=== PATIENT | female | born 1995 | race Caucasian/White ===

== ENCOUNTER 2024-05-11 12:22 | Emergency (ER) | payer OTHER, SELFPAY ==
[2024-05-11] VITALS (11 sets, daily range): BP systolic 118–138; BP diastolic 68–82; PULSE 59–79; TEMP 36.7; O2SAT 75–100; BMI 20.4
--- NOTE | 2024-05-11 13:14 | ECG_ITS ---
[facility] Test Date: 2024-05-11 Pat Name: SARI MOULTON Department: Room: - Gender: Female Certified Meeting Professional: : 1995 Requested By: Order Number: [id number] Reading MD: MARY SPIVEY Measurements Intervals [place] Rate: 57 P: 90 CO: 138 QRS: 91 QRSD: 84 T: 69 QT: 414 QTc: 409 Interpretive Statements 1100 Sinus rhythm 1470 with occasional supraventricular premature complexes 7102 Moderate right axis deviation 9140 abnormal rhythm ECG No previous ECG available for comparison Electronically Signed On 05-11-2024 22:48:13 EDT by MARY SPIVEY
[2024-05-11 13:22] LABS: Basophils Absolute Auto 0.1 10^3/uL (0.0-0.1); Basophils Percent Auto 0.9 % (0.2-2.0); Eosinophils Absolute Auto 0.1 10^3/uL (0.0-0.7); Eosinophils Percent Auto 1.8 % (0.9-7.0); Hematocrit 37.7 % (36.0-48.0); Hemoglobin 13.5 g/dL (12.0-16.0); Immature Granulocytes Abs Auto 0.02 10^3/uL (0.00-0.03); Immature Granulocytes Pct Auto 0.3 % (0.0-0.5); Lymphocytes Absolute Auto 2.2 10^3/uL (1.2-3.8); Lymphocytes Percent Auto 28.3 % (20.5-60.0); Mean Corpuscular HGB Conc 35.8 g/dL (29.9-35.2); Mean Corpuscular Hemoglobin 33.7 pg (26.7-34.0); Mean Platelet Volume 9.8 fL (9.5-13.5); Monocytes Absolute Auto 0.5 10^3/uL (0.3-0.8); Monocytes Percent Auto 5.8 % (1.7-12.0); Neutrophils Absolute Auto 4.9 10^3/uL (1.4-6.5); Neutrophils Percent Auto 62.9 % (43.0-75.0); Platelet Count 272 10^3/uL (150-450); Red Blood Count 4.01 10^6/uL (4.20-5.40); Red Cell Distribution Width 11.8 % (11.0-15.0); White Blood Count 7.7 10^3/uL (4.0-11.0)
--- NOTE | 2024-05-11 13:36 | ED_ITS ---
HPI HPI - General Adult General Chief complaint: Chest Pain Stated complaint: CHEST PAIN/GENERAL WEAKNESS Time Seen by Provider: 05/11/24 12:47 Source: patient Mode of arrival: walk-in Limitations: no limitations History of Present Illness HPI narrative: Patient presents to ED complaining of chest pain and not feeling well. She was recently seen in the ER and diagnosed with GERD and chest pain. She stopped smoking and stopped marijuana since then she has been feeling jittery and having anxiety and panic attacks. She says she has been having some chest pain and pain in her back. She is tearful and anxious here on exam. No suicidal or homicidal ideation. She states that she wants to stay off the nicotine and relapse on that but she is having a hard time. It has been 3 days since she has had any nicotine and she is having a lot of withdrawal symptoms from that. She says she wakes up sweaty at night.She is alert and oriented at this time Related Data Home Medications ?Medication ?Instructions ?Recorded ?Confirmed hydroxyzine HCl 25 mg tablet 25 mg PO BID 05/11/24 05/11/24 omeprazole 10 mg capsule,delayed 10 mg PO BID 05/11/24 05/11/24 release sucralfate .ROUTE 05/11/24 Previous Rx's ?Medication ?Instructions ?Recorded nicotine See Rx Instructions transdermal 05/11/24 21mg/24hr-14mg/24hr-7mg/24hr daily .COMPLEX #56 patches transderm patches,sequentl Allergies Allergy/AdvReac Type Severity Reaction Status Date / Time No Known Drug Allergies Allergy Verified 05/11/24 12:33 Opioid HPI Opioid Management Most Recent Opioid Data: No Data to Display Review of Systems ROS Status of ROS 10 or more systems reviewed and unremark able except as noted in history and below PFSH PFSH Social History Little interest or pleasure in doing things: not at all Feeling down, depressed, or hopeless: not at all Exam Narrative Exam Narrative: General: alert, no acute distress Cardiovascular: regular rate and rhythm, normal peripheral perfusion. Respiratory: Lungs CTA, respirations non labored. Extremities: no deformity, no trauma. Neurological: oriented x 4, LOC appropriate for age. Abdomen soft nontender nondistended Patient is anxious, mildly tearful Constitutional Vital Signs, click to edit/add: Last Vital Signs Temp 98.1 F 05/11/24 12:33 Pulse 61 05/11/24 13:40 Resp 19 05/11/24 13:40 BP 118/68 05/11/24 13:14 Pulse Ox 99 05/11/24 12:51 O2 Del Method Room Air 05/11/24 12:33 Course Vital Signs Vital signs: Vital Signs Temperature 98.1 F 05/11/24 12:33 Pulse Rate 62 05/11/24 12:33 Respiratory Rate 20 05/11/24 12:33 Blood Pressure 118/75 05/11/24 12:33 Pulse Oximetry 100 05/11/24 12:33 Oxygen Delivery Method Room Air 05/11/24 12:33 Temperature 98.1 F 05/11/24 12:33 Pulse Rate 61 05/11/24 13:40 Respiratory Rate 19 05/11/24 13:40 Blood Pressure 118/68 05/11/24 13:14 Pulse Oximetry 99 05/11/24 12:51 Oxygen Delivery Method Room Air 05/11/24 12:33 Medical Decision Making MDM Narrative Medical decision making narrative: Patient's labs are negative for acute findings. This is most likely anxiety as well as withdrawal symptoms from nicotine. Patient will be sent home with a nicotine patch taper to help her wean off her nicotine. I also told her to get into therapy and counseling to help her with her anxiety and to help keep her off cigarettes and marijuana. Return to ED if worsening symptoms otherwise follow-up with family doctor. Differential Diagnosis Differential Diagnosis: Anxiety, withdrawal, atypical chest pain Lab Data Lab results reviewed: Yes I reviewed the patient's lab results Labs: Lab Results 05/11/24 Range/Units 12:50 WBC 7.7 (4.0-11.0) 10^3/uL RBC 4.01 L (4.20-5.40) 10^6/uL Hgb 13.5 (12.0-16.0) g/dL Hct 37.7 (36.0-48.0) % MCV 94.0 (81.0-99.0) fL MCH 33.7 (26.7-34.0) pg MCHC 35.8 H (29.9-35.2) g/dL RDW 11.8 (11.0-15.0) % Plt Count 272 (150-450) 10^3/uL MPV 9.8 (9.5-13.5) fL Neut % (Auto) 62.9 (43.0-75.0) % Lymph % (Auto) 28.3 (20.5-60.0) % [place] % (Auto) 5.8 (1.7-12.0) % Eos % (Auto) 1.8 (0.9-7.0) % Baso % (Auto) 0.9 (0.2-2.0) % Neut # (Auto) 4.9 (1.4-6.5) 10^3/uL Lymph # (Auto) 2.2 (1.2-3.8) 10^3/uL [place] # (Auto) 0.5 (0.3-0.8) 10^3/uL Eos # (Auto) 0.1 (0.0-0.7) 10^3/uL Baso # (Auto) 0.1 (0.0-0.1) 10^3/uL Abs Immat Gran (auto) 0.02 (0.00-0.03) 10^3/uL Imm/Tot Granulo (auto) 0.3 (0.0-0.5) % Sodium 137 (136-145) mmol/L Potassium 3.4 L (3.5-5.1) mmol/L Chloride 102 (98-107) mmol/L Carbon Dioxide 25.4 (21.0-32.0) mmol/L Anion Gap 13.0 BUN 6.0 L (7.0-18.0) mg/dL Creatinine 0.84 (0.55-1.02) mg/dL Est GFR ( Amer) >60 (>=60 mL/min/1.73m^2) Est GFR (Non-Af Amer) >60 (>=60 mL/min/1.73m^2) BUN/Creatinine Ratio 7.1 Glucose 85 (74-106) mg/dL Calcium 9.4 (8.5-10.1) mg/dL Total Bilirubin 0.8 (0.2-1.0) mg/dL AST 18 (15-37) U/L ALT 23 (14-59) U/L Alkaline Phosphatase 47 (46-116) U/L Troponin I High Sens <4.0 L (4.0-51.3) pg/mL Total Protein 7.6 (6.4-8.2) g/dL Albumin 4.6 (3.4-5.0) g/dL Globulin 3.0 g/dL Albumin/Globulin Ratio 1.5 ECG Data Attestation: I personally reviewed and interpreted this ECG as follows: Interpretation: EKG INTERPRETATION Time: []1245 Rate: []57 Rhythm: _ []Sinus bradycardia ST segments: _ []No acute ST elevation or depression T waves: _ [] Ectopy: _ [] P wave/CO interval: _ [] QRS interval: _ [] QT interval: _ [] Comparison: _ [] Comparison EKG date: [] Performed by: [self] Smoking Cessation Time spent discussing smoking cessation with patient: more than 10 minutes Patient Acknowledges Need for Cessation: Yes Discharge Plan Discharge Chief Complaint: Chest Pain Clinical Impression: Anxiety Patient Disposition: Home, Self-Care Time of Disposition Decision: 13:45 Condition: Good Mode of Transportation: Private Vehicle Prescriptions / Home Meds: New nicotine 21-14-7 mg/24 hr patch, TD daily, sequential See Rx Instructions .ROUTE .COMPLEX Qty: 56 0RF Rx Instructions: apply 1-21 mg NICOTINE PATCH daily for 28 days; follow with 1-14 mg PATCH daily for 14 days, then 1-7mg PATCH daily for 14 days No Action omeprazole 10 mg capsule,delayed release(DR/EC) 10 mg PO BID sucralfate .ROUTE hydroxyzine HCl 25 mg tablet 25 mg PO BID Print Language: [place] Instructions: Anxiety (ED) Referrals: Tom Perkins MD [Primary Care Provider] - 1 week Discharge Date/Time: 05/11/24 13:54
[2024-05-11 13:39] LABS: Alanine Aminotransferase 23 U/L (14-59); Albumin Globulin Ratio 1.5; Albumin Level 4.6 g/dL (3.4-5.0); Alkaline Phosphatase 47 U/L (46-116); Aspartate Amino Transferase 18 U/L (15-37); BUN Creatinine Ratio 7.1; Bilirubin Total 0.8 mg/dL (0.2-1.0); Calcium 9.4 mg/dL (8.5-10.1); Carbon Dioxide 25.4 mmol/L (21.0-32.0); Chloride 102 mmol/L (98-107); Estimated GFR (African America >60 (>=60 mL/min/1.73m^2); Estimated GFR (Non-African Ame >60 (>=60 mL/min/1.73m^2); Glucose 85 mg/dL (74-106); Potassium 3.4 mmol/L (3.5-5.1); Sodium 137 mmol/L (136-145); Total Protein 7.6 g/dL (6.4-8.2); Troponin I High Sensitivity <4.0 pg/mL (4.0-51.3)
== END 2024-05-11 13:54 | disposition home or self-care (01) ==
PROVIDERS: Emergency Provider Emergency Medicine; PCP Family Medicine
DX: F41.9 Anxiety disorder, unspecified (principal); Z87.891 Personal history of nicotine dependence
CPT/HCPCS: 36415; 80053; 84484; 85025; 93005; 99284

== ENCOUNTER 2024-05-30 21:33 | Emergency (ER) | payer OTHER, SELFPAY ==
--- OUTSIDE RECORDS SUMMARY | 2024-05-30 21:41 | XMS_ITS | CCD ---
Author Organization [facility] Care Team Providers Care Human Resources Leader Name Role Phone Marialuisa Huerta Unavailable [phone] Unavailable Unavailable Unavailable Marialuisa Huerta Primary Care Provid er JOLLY BENDER Attending Unav ailable Marialuisa Huerta Primary Care Serene vailable JOLLY BENDER Attending Unav ailable Marialuisa Huerta Primary Care Serene vailable MARIALUISA HUERTA Primary Care Unavailab le Marialuisa Huerta Primary Care Provider [phone] Marialuisa Huerta DO Primary Care Provider Unavailable Primary Care Provider Unavailabl e Marialuisa Huerta DO Primary Care Provider SHEFALI KOO Attending Unavailable MARIALUISA HUERTA Primary Care Serene vailable SHEFALI KOO Attending Unavailable MARIALUISA HUERTA Primary Care Serene vailable Tom Perkins MD Primary Care Provider [phone] AIDEN SALCEDO Attending Unavailable GREGORIOTOM Borden Primary Care Unavailable Gregorio Tom ALBARRAN Primary Care Provider [phone] TETE HOANG Attending Unavailable TOM PERKINS S Referring Unavailable Unavailable Primary Care Provider Unavailchristin e BRANDYN GHOSH Referring Unavailabl e GREGORIOCAMERON BordenTOMJHOAN VALE Primary Care Unavailable BRANDYN GHOSH Referring Unavailabl e GREGORIO, TOMJHOAN VALE Primary Care Unavailable GREGORIO, TOMJHOAN VALE Primary Care Unavailable SIRI BARRERA Attending Unavailable MARIALUISA HUERTA Primary Care Unavailab LATASHA Nava Attending Unavailable CHENCHO PINEDO Attending Unavailable GREGORIOTOM Borden Primary Care Unavailable [facility] Primary Care Unavailable SIRI BARRERA Attending Unavailable LINN POZO Attending Unavailable [facility], [facility] Primary Care Unavailable [facility], [facility] Primary Care Unavailable BLAISE DELANEY Attending Unavailable CHENCHO PINEDO Attending Unavailable [facility], [facility] Primary Care Unavailable LINN POZO Attending Unavailable LINN POZO Attending Unavailable [facility], [facility] Primary Care Unavailable IACROGE BAILEY Referring Unavailable [facility], [facility] Primary Care Unavailable BRANDYN GHOSH Referring Unavailabl e NAZEMI I, MELISSA Referring Unavailable MARIALUISA HUERTA Primary Care Unavailab le NAZEMI I, MELISSA Attending Unavailable NAZEMI I, MELISSA Referring Unavailable MARIALUISA HUERTA Primary Care Unavailab le [facility]REG[facility], [facility] Primary Care Unavailable SIRI BARRERA Attending Unavailable MARIALUISA HUERTA Primary Care Unavailab le [facility]REG[facility], [facility] Primary Care Unavailable MARIALUISA HUERTA Primary Care Unavailab YARELI Payne Attending Unavailable LATRICIA JIN Attending Unavailable [facility], [facility] Primary Care Unavailable ROGE PITTS Referring Unavailable GREGORIO, [facility] Care Unavailable NAZEMI I, MELISSA Referring Unavailable MARIALUISA HUERTA Primary Care Unavailab le Allergies Allergy Classification Reported Allergen(s) Allergy Type Date of Onset Reaction(s) Facility (1 source) Amoxicillin Drug Allergy 07-07-2018 [place], [place] (6 sources) Penicillins Propensity to adverse reactions to drug 07-07-2018 [place], [place] (8 sources) Penicillins Propensity to adverse reactions to drug 07-07-2018 [facility] (1 source) Penicillins Propensity to adverse reactions to drug 07-07-2018 [facility] Medications Current Medications Medication Drug Class(es) Dates Sig (Normalized) Sig (Original) acetaminophen 500 mg oral tablet (1 source) Start: 09-06-2018 take 2 tablets by mouth every six hours as needed for pain acetaminophen (APAP EXTRA STRENGTH) 500 MG tablet Take 2 tablets by mouth every 6 hours as needed for Pain 30 tablet 0 09/06/2018 Active Acetaminophen / HYDROcodone (1 source) Opioid Agonist Start: 04-03-2022 hydrocodone-acetam inophen (NORCO) tablet 5-325 mg (STARTER PACK) albuterol sulfate HFA 108 (90 Base) MCG/ACT inhaler (1 source) Start: 01-12-2019 take 2 puff(s) by inhalation every six hours as needed for wheezing albuterol sulfate HFA 108 (90 Base) MCG/ACT inhaler Inhale 2 puffs into the lungs every 6 hours as needed for Wheezing 1 Inhaler 0 01/12/2019 Active 24 hr amphetamine aspartate 3.75 mg / amphetamine sulfate 3.75 mg / dextroamphetamine saccharate 3.75 mg / dextroamphetamine sulfate 3.75 mg extended release oral capsule (1 source) Central Nervous System Stimulant Start: 04-13-2017 End: 05-13-2017 take 1 capsule by mouth once daily in the morning dextroamphetamine- amphetamine (ADDERALL XR) 15 MG 24 hr capsule Indications: Attention deficit hyperactivity disorder (ADHD), combined type Take 1 (one) capsule (15 mg total) by mouth every morning. 30 capsule 0 04/13/2017 05/13/2017 Active 24 hr amphetamine aspartate 3.75 mg / amphetamine sulfate 3.75 mg / dextroamphetamine saccharate 3.75 mg / dextroamphetamine sulfate 3.75 mg extended release oral capsule (2 sources) Central Nervous System Stimulant Start: 04-13-2017 End: 05-13-2017 take 1 capsule by mouth once daily in the morning dextroamphetamine- amphetamine (ADDERALL XR) 15 MG 24 hr capsule Indications: Attention deficit hyperactivity disorder (ADHD), combined type Take 1 (one) capsule (15 mg total) by mouth every morning. 30 capsule 0 04/13/2017 05/13/2017 Active Start: 03-10-2017 End: 04-09-2017 take 1 capsule by mouth once daily in the morning dextroamphetamine-amphetamine (ADDERALL XR) 15 MG 24 hr capsule Indications: Attention deficit hyperactivity disorder (ADHD), combined type Take 1 (one) capsule (15 mg total) by mouth every morning. 30 capsule 0 03/10/2017 04/09/2017 Active azithromycin 250 mg oral tablet (2 sources) Macrolide Antimicrobial Start: 01-15-2024 End: 01-25-2024 azithromycin (ZITHROMAX) 250 MG tablet Indications: Nasal and sinus discharge 500mg on day 1 followed by 250mg on days 2 - 5 6 tablet 0 01/15/2024 01/25/2024 Active baclofen 10 mg oral tablet (2 sources) gamma-Aminobutyric Acid-ergic Agonist Start: 04-14-2024 End: 04-24-2024 take 1 tablet by mouth three times daily baclofen (LIORESAL) 10 MG tablet Indications: Lumbar paraspinal muscle spasm Take 1 tablet by mouth 3 times daily for 10 days 30 tablet 04/14/2024 04/24/2024 Active calcium chloride 0.0014 meq/ml / potassium chloride 0.004 meq/ml / sodium chloride 0.103 meq/ml / sodium lactate 0.028 meq/ml injectable solution (1 source) Start: 05-23-2022 lactated ringers infusion cephalexin 500 mg oral capsule (1 source) Cephalosporin Antibacterial Start: 03-10-2017 End: 03-20-2017 take 1 capsule by mouth three times daily cephALEXin (KEFLEX) 500 MG capsule Indications: Dental abscess , Infected dental carries Take 1 (one) capsule (500 mg total) by mouth 3 (three) times a day for 10 days. 30 capsule 0 03/10/2017 03/20/2017 Active cetirizine hydrochloride 10 mg oral tablet (11 sources) Histamine-1 Receptor Antagonist Start: 01-12-2019 End: 05-03-2022 take 1 tablet by mouth once daily cetirizine (ZYRTEC) 10 MG tablet Take 1 tablet by mouth daily 30 tablet 0 04/03/2022 05/03/2022 Active Cetirizine HCl ( ZYRTEC ALLERGY PO) Take by mouth daily Active clindamycin 300 mg oral capsule (1 source) Lincosamide Antibacterial Start: 05-18-2024 take 1 capsule by mouth three times daily clindamycin (CLEOCIN) 300 MG capsule Take 1 capsule by mouth 3 times daily 05/18/2024 Active diclofenac sodium 0.01 mg/mg topical gel (5 sources) Nonsteroidal Anti-inflammatory Drug Start: 05-17-2024 diclofenac sodium (VOLTAREN) 1 % GEL Apply 2 g topically 4 times daily 05/17/2024 Active docusate sodium 100 mg oral capsule (1 source) Start: 09-16-2017 take 1 capsule by mouth twice daily docusate sodium (COLACE) 100 MG capsule Indications: Constipation due to opioid therapy Take 1 capsule by mouth 2 times daily 60 capsule 3 09/16/2017 Active doxycycline hyclate 100 mg oral tablet (2 sources) Tetracycline-class Drug Start: 04-13-2017 End: 04-23-2017 take 1 tablet by mouth twice daily doxycycline hyclate (VIBRA-TABS) 100 MG tablet Indications: Maxillary sinusitis, unspecified chronicity Take 1 (one) tablet (100 mg total) by mouth 2 (two) times a day for 10 days. 20 tablet 0 04/13/2017 04/23/2017 Active fluconazole 100 mg oral tablet (1 source) Azole Antifungal Start: 04-13-2017 End: 04-14-2017 fluconazole (DIFLUCAN) 100 MG tablet Take 1 (one) tablet (100 mg total) by mouth daily May repeat in 72 hours if symptoms persist. for 1 day. 2 tablet 0 04/13/2017 04/14/2017 Active fluticasone propionate 0.05 mg/actuat metered dose nasal spray (10 sources) Corticosteroid Start: 05-15-2024 fluticasone (FLONASE) 50 MCG/ACT nasal spray 1 spray by Nasal route daily 05/15/2024 Active Start: 05-15-2024 fluticasone pr opionate (FLONASE) 50 mcg/actuation nasal spray 1 spray. 05/15/2024 Active Start: 07-09-2021 take 2 spray(s) nasa l route once daily fluticasone (FLONASE) 50 MCG/ACT nasal spray 2 sprays by Each Nostril route daily 48 g 1 07/09/2021 Suspended hydrOXYzine pamoate 25 mg oral capsule (2 sources) Antihistamine Start: 05-07-2024 take 1 capsule by mouth three times daily as needed for anxiety hydrOXYzine pamoate 25 MG capsule Take 1 capsule by mouth 3 times daily as needed for Anxiety. 15 capsule 05/07/2024 Active Start: 08-10-2019 hydrOXYzine (V ISTARIL) 50 MG capsule take 1 capsule three times a day if needed for ANXIETY 0 08/10/2019 Active hyoscyamine sulfate 0.125 mg oral tablet (8 sources) Start: 05-07-2024 take 1 tablet by mouth every four hours as needed hyoscyamine (ANASPAZ;LEVSIN) 0.125 MG tablet Take 1 tablet by mouth every 4 hours as needed 05/07/2024 Active Start: 05-07-2024 End: 05-07-2024 take 0.125 mg by mouth once 0.125 mg, Oral, ONCE, 1 do se, On 05/07/24 at 1215 Start: 01-26-2024 take 1 tablet by francy th every twelve hours as needed hyoscyamine (LEVBID) 375 MCG extended release tablet Indications: Generalized abdominal pain Take 1 tablet by mouth every 12 hours as needed for Cramping 60 tablet 3 01/26/2024 Active take 1 tablet under the tongue every four hours as needed hyoscyamine (LEVSIN/SL) [address] 1 tablet under the tongue every 4 hours as needed for Cramping 0 Active ibuprofen 800 mg oral tablet (4 sources) Nonsteroidal Anti-inflammatory Drug Start: 03-30-2024 take 1 tablet by mouth every eight hours as needed for pain ibuprofen (ADVIL;MOTRIN) 800 MG tablet Take 1 tablet by mouth every 8 hours as needed for Pain 30 tablet 03/30/2024 Active Vitamin With Calcium No.72-Iron 27 Mg-Folic Acid 1 Mg Tablet (2 sources) Start: 04-02-2017 End: 04-02-2018 take 1 tablet by mouth once daily vitamin with Ca-Iron-FA ( PLUS, CALCIUM CARB,) 27-1 mg Tab Take 1 tablet by mouth daily. 04/02/2017 04/02/2018 Active lidocaine 0.05 mg/mg medicated patch (2 sources) Antiarrhythmic, Amide Local Anesthetic Start: 04-16-2024 End: 04-26-2024 lidocaine (LIDODERM) 5 % Place 1 patch onto the skin daily for 10 days 12 hours on, 12 hours off. 10 patch 04/16/2024 04/26/2024 Active linaclotide 0.072 mg oral capsule (2 sources) Guanylate Cyclase-C Agonist Start: 01-15-2024 take 1 capsule by mouth once daily before breakfast linaCLOtide (LINZESS) 72 MCG CAPS capsule Indications: Generalized abdominal pain Take 1 capsule by mouth every morning (before breakfast) 30 capsule 0 01/15/2024 Active loratadine 10 mg oral tablet (3 sources) take 1 tablet by mouth once daily loratadine (CLARITIN) 10 mg tablet Take 10 mg by mouth daily. Active 24 hr loratadine 10 mg / pseudoephedrine sulfate 240 mg extended release oral tablet (1 source) alpha-Adrenergic Agonist Start: 06-02-2019 take 10-240 mg by mouth once loratadine-pseudoe phedrine (CLARITIN-D 24 HOUR) 10-240 MG per extended release tablet Indications: Acute non-recurrent maxillary sinusitis Take 1 tablet by mouth daily 30 tablet 0 06/02/2019 Active lubiprostone 0.024 mg oral capsule (1 source) Chloride Channel Activator Start: 01-18-2024 take 1 capsule by mouth twice daily at mealtime lubiprostone (AMITIZA) 24 MCG capsule Indications: Constipation, unspecified constipation type Take 1 capsule by mouth 2 times daily (with meals) 60 capsule 3 01/18/2024 Active medical marijuana (3 sources) medical marijuan a Take by mouth as needed. 0 Active metroNIDAZOLE 500 mg oral tablet (1 source) Nitroimidazole Antimicrobial Start: 01-11-2024 End: 01-18-2024 take 1 tablet by mouth twice daily metroNIDAZOLE (FLAGYL) 500 MG tablet Take 1 tablet by mouth 2 times daily for 7 days 14 tablet 0 01/11/2024 01/18/2024 Active 24 hr nicotine 0.875 mg/hr transdermal system (7 sources) Cholinergic Nicotinic Agonist Start: 05-11-2024 NICOTINE STEP 1 21 MG/24HR 05/11/2024 Active Start: 05-11-2024 apply 1 dose transde rmal route every hour nicotine (NICODERM CQ) 21 mg/[address] 1 patch on the skin. 05/11/2024 Active Start: 04-13-2017 nicotine 21-14 -7 mg/24 hr PTDS Indications: Tobacco abuse Place 1 application on the skin daily. 56 each 0 04/13/2017 Active norethindrone 0.35 mg oral tablet (1 source) Start: 12-10-2023 take 1 tablet by mouth once daily norethindrone (ORTHO MICRONOR) 0.35 MG tablet Take 1 tablet by mouth daily 28 tablet 6 12/10/2023 Active nystatin 912846 unt/ml oral suspension (2 sources) Polyene Antifungal Start: 04-01-2024 End: 04-29-2024 take 5 mL by mouth four times daily nystatin (MYCOSTATIN) [id number] UNIT/ML suspension Indications: Oral lesion Take 5 mLs by mouth 4 times daily for 28 days 280 mL 1 04/01/2024 04/29/2024 Active omeprazole 20 mg delayed release oral capsule (9 sources) Proton Pump Inhibitor Start: 05-17-2024 End: 05-17-2024 take 1 capsule by mouth at bedtime omeprazole (PriLOSEC) 20 mg capsule Indications: Gastroesophageal reflux disease without esophagitis Take 1 capsule (20 mg total) by mouth in the morning and at bedtime. 60 capsule 3 05/17/2024 Active Start: 01-15-2022 take 1 capsule by mo ut once daily before breakfast omeprazole (PRILOSEC) 40 MG delayed release capsule Take 1 capsule by mouth every morning (before breakfast) 30 capsule 0 01/15/2022 Suspended ondansetron 4 mg disintegrating oral tablet (13 sources) Serotonin-3 Receptor Antagonist Start: 05-07-2024 take 1 tablet by mouth four times daily as needed for nausea Ondansetron 4 MG Tab Dispersible tablet Take 1 tablet by mouth 4 times daily as needed for Nausea / Vomiting. Place on tongue 15 tablet 05/07/2024 Active Start: 05-02-2024 take 1 tablet by fracny th three times daily as needed for nausea ondansetron (ZOFRAN-ODT) 4 MG disintegrating tablet Take 1 tablet by mouth 3 times daily as needed for Nausea or Vomiting 21 tablet 05/02/2024 Active Start: 05-02-2024 End: 05-02-2024 4 mg, IntraVENous, ONCE, 1 d ose, On 05/02/24 at 0015 Start: 01-11-2024 take 1 tablet by francy th three times daily as needed for nausea ondansetron (ZOFRAN-ODT) 4 MG disintegrating tablet Take 1 tablet by mouth 3 times daily as needed for Nausea or Vomiting 21 tablet 0 01/11/2024 Active Start: 01-11-2024 End: 01-11-2024 ondansetron (ZOFRAN) injecti on 4 mg Start: 01-14-2022 End: 01-14-2022 ondansetron (ZOFRAN) injecti on 4 mg Start: 04-02-2017 take 1 tablet by francy th once daily as needed ondansetron (ZOFRAN) 4 MG tablet Take 4 mg by mouth daily as needed. 04/02/2017 Active penicillin v potassium 500 mg oral tablet (1 source) Start: 05-21-2024 penicillin v p otassium (VEETID) 500 MG tablet 05/21/2024 Active raNITIdine 150 mg oral tablet (1 source) Histamine-2 Receptor Antagonist Start: 12-30-2018 take 1 tablet by mouth twice daily ranitidine (ZANTAC) 150 MG tablet Indications: Gastroesophageal reflux disease without esophagitis Take 1 tablet by mouth 2 times daily 60 tablet 0 12/30/2018 Active sucralfate 1000 mg oral tablet (6 sources) Aluminum Complex Start: 05-09-2024 take 1 tablet by mouth four times daily sucralfate (CARAFATE) 1 GM tablet Take 1 tablet by mouth 4 times daily 120 tablet 3 05/09/2024 Active Start: 05-07-2024 take 1 tablet by francy th at bedtime sucralfate (CARAFATE) 1 gram tablet Take 1 tablet (1 g total) by mouth in the morning and 1 tablet (1 g total) at noon and 1 tablet (1 g total) in the evening and 1 tablet (1 g total) before bedtime. 05/07/2024 Active triamcinolone acetonide 0.055 mg/actuat metered dose nasal spray (2 sources) Corticosteroid Start: 04-03-2022 take 2 spray(s) nasal route once daily triamcinolone (NASACORT ALLERGY 24HR) 55 MCG/ACT nasal inhaler 2 sprays by Each Nostril route daily 1 each 3 04/03/2022 Active 24 hr venlafaxine 37.5 mg extended release oral capsule (4 sources) Serotonin and Norepinephrine Reuptake Inhibitor Start: 03-26-2022 take 1 capsule by mouth once daily venlafaxine (EFFEXOR XR) 37.5 MG extended release capsule Indications: Anxiety Take 1 capsule by mouth daily 30 capsule 2 03/26/2022 Active Start: 08-10-2019 take 1 capsule by mo uth once daily venlafaxine (EFFEXOR XR) 37.5 MG extended release capsule take 1 capsule by mouth once daily 0 08/10/2019 Active Completed/Discontinued Medications Medication Drug Class(es) Dates Sig (Normalized) Sig (Original) chlorhexidine gluconate 1.2 mg/ml mouthwash (1 source) Start: 04-01-2024 End: 04-15-2024 take 15 mL by mouth twice daily chlorhexidine (PERIDEX) 0.12 % solution Indications: Oral lesion Swish and spit 15 mLs 2 times daily for 14 days 420 mL 04/01/2024 04/15/2024 2 ml dicyclomine hydrochloride 10 mg/ml injection (1 source) Anticholinergic Start: 01-11-2024 End: 01-11-2024 dicyclomine (BENTYL) injection 20 mg famotidine 20 mg oral tablet (1 source) Histamine-2 Receptor Antagonist Start: 05-07-2024 End: 05-07-2024 take 1 dose by mouth once 20 mg, Oral, ONCE, 1 dose, On 05/07/24 at 1215 GI cocktail: alum/mag hydrox-simethicone( 30ml)+lidocaine 2%(10ml) oral suspension 40 mL (1 source) Start: 05-07-2024 End: 05-07-2024 take 1 dose by mouth once 40 mL, Oral, ONCE, 1 dose, On 05/07/24 at 1215 iopamidol (ISOVUE-370) 76 % injection 75 mL (1 source) Start: 01-11-2024 End: 01-11-2024 iopamidol (ISOVUE-370) 76 % injection 75 mL 1 ml ketorolac tromethamine 30 mg/ml cartridge (1 source) Nonsteroidal Anti-inflammatory Drug, Cyclooxygenase Inhibitor Start: 01-14-2022 End: 01-14-2022 ketorolac (TORADOL) injection 30 mg pantoprazole 40 mg delayed release oral tablet (1 source) Proton Pump Inhibitor Start: 05-02-2024 End: 05-02-2024 take 1 dose by mouth once 40 mg, Oral, ONCE, 1 dose, On 05/02/24 at 0015, Do not crush or break. predniSONE 20 mg oral tablet (1 source) Start: 04-03-2022 End: 04-03-2022 predniSONE (DELTASONE) tablet 40 mg 50 ml sodium chloride 9 mg/ml injection (5 sources) Start: 04-15-2024 End: 04-16-2024 1,000 mL (18.4 mL/kg), IntraVENous, at 2,000 mL/hr, Administer over 30 Minutes, ONCE, On Thu04/15/24 at 2330, For 1 dose Start: 01-11-2024 End: 01-11-2024 sodium chloride 0.9 % bolus 1,000 mL Start: 05-23-2022 take 1 dose intraven ously twice daily 5-40 mL, IntraVENous, EVERY 12 HOURS SCHEDULED (2 times per day), First dose on Thu05/23/22 at 2100, Until Discontinued For Line Patency: Peripheral IV = 5 mL; Midline or Central Line = 10 mL/lumen. If following IV push medication, administer flush at same rate as the IV push. Flush volume is determined by type of infusion therapy being given. For non-viscous solutions use: Peripheral IV = 5 mL Midline or Central Line = 10 mL/lumen For viscous solutions (i.e. blood components, parenteral nutrition, contrast media, or after obtaining blood sample) use: Peripheral IV = 10 mL Midline or Central Line = 20 mL/lumen PACU only Start: 05-23-2022 IntraVENous, a t 5-250 mL/hr, PRN, if patient receiving piggyback infusions and maintenance fluids are not ordered OR KVO fluids to protect IV site / prevent frequent line interruptions/ long duration, Starting on Thu05/23/22 at 1334 For piggyback infusion, administer at same rate as piggyback for a total of 25 mL. Enter 25 mL into dose field and piggyback rate into rate field of order. If piggyback is infusing at a rate less than 100 mL/hr, enter 25 mL into dose field and 100 mL/hr into rate field of order. For KVO fluids, enter rate of 20 mL/hr or less into rate field of order. PACU only Start: 05-23-2022 take 5-40 mL intrave nously once as needed 5-40 mL, IntraVENous, PRN, Starting on Thu05/23/22 at 1334, Until Discontinued, Line Care, After every IV line use For Line Patency: Peripheral IV = 5 mL; Midline or Central Line = 10 mL/lumen. If following IV push medication, administer flush at same rate as the IV push. Flush volume is determined by type of infusion therapy being given. For non-viscous solutions use: Peripheral IV = 5 mL Midline or Central Line = 10 mL/lumen For viscous solutions (i.e. blood components, parenteral nutrition, contrast media, or after obtaining blood sample) use: Peripheral IV = 10 mL Midline or Central Line = 20 mL/lumen PACU only Problems Active Problems Problem Classification Problem Date Documented Da te Episodic/Chronic Abdominal pain (20 sources) Right upper quadrant pain; Translations: [Pain in female pelvis] Onset: 11-08-2023 Resolved: 01-12-2019 01-12-2019 Episodic Anxiety disorders (3 sources) Anxiety disorder, unspecified; Translations: [Anxiety] Onset: 05-07-2024 Chronic Attention-deficit, conduct, and disruptive behavior disorders (5 sources) Attention deficit hyperactivity disorder, combined type; Translations: [Attention-deficit hyperactivity disorder, combined type] Onset: 12-06-2015 12-06-2015 Chronic E Codes: Fall (2 sources) Fall; Translations: [Unspecified fall, initial encounter] Onset: 05-28-2024 05-28-2024 Episodic Esophageal disorders (6 sources) Gastro-esophageal reflux disease without esophagitis; Translations: [Gastroesophageal reflux disease without esophagitis] Onset: 05-17-2024 05-17-2024 Chronic Gastritis and duodenitis (2 sources) Gastritis, unspecified, without bleeding; Translations: [Gastritis] Onset: 05-07-2024 05-07-2024 Episodic Genitourinary symptoms and ill-defined conditions (2 sources) Blood in urine; Translations: [Hematuria, unspecified] Onset: 03-29-2024 03-29-2024 Episodic Miscellaneous mental health disorders (1 source) Hypochondriasis; 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] Onset: 11-11-2023 Chronic Mood disorders (4 sources) Mixed anxiety and depressive disorder; Translations: [Anxiety disorder, unspecified] Onset: 12-06-2015 12-06-2015 Chronic Nausea and vomiting (1 source) Nausea; Translations: [Nausea] Episodic Nonspecific chest pain (2 sources) Chest pain; Translations: [Chest pain, unspecified] Onset: 05-01-2024 05-02-2024 Episodic Other bone disease and musculoskeletal deformities (1 source) Chondrocostal junction syndrome [Tietze]; Translations: [Chondrocostal junction syndrome (tietze)] Onset: 05-17-2024 Episodic Other bone disease and musculoskeletal deformities (5 sources) Costal chondritis; Translations: [Chondrocostal junction syndrome [Tietze]] Onset: 05-17-2024 05-17-2024 Episodic Other connective tissue disease (1 source) Muscle pain; Translations: [Myalgia, unspecified site] 04-24-2024 Episodic Other connective tissue disease (1 source) Pain in left leg; Translations: [Pain in left leg] Onset: 05-23-2024 Episodic Other connective tissue disease (1 source) Myalgia, unspecified site; Translations: [Myalgia, unspecified site] Onset: 04-24-2024 Episodic Other connective tissue disease (2 sources) Pain in upper limb; Translations: [Arm Pain] Onset: 04-24-2024 Episodic Other ear and sense organ disorders (1 source) Otalgia, right ear; Translations: [Otalgia, unspecified] Episodic Other gastrointestinal disorders (1 source) Abdominal bloating; Translations: [Bloating] Episodic Other and delivery including normal (20 sources) Normal labor; Translations: [Delivery normal] Onset: 11-09-2017 Resolved: 01-12-2019 01-12-2019 Episodic Otitis media and related conditions (1 source) Otitis media; Translations: [Otitis media, unspecified, unspecified ear] Episodic Residual codes; unclassified (1 source) Tobacco user Chronic Residual codes; unclassified (1 source) Intolerant of ambient temperature; Translations: [Other general symptoms and signs] 01-22-2024 Episodic Residual codes; unclassified (1 source) Pain, unspecified; Translations: [Pain, unspecified] Onset: 05-16-2024 Episodic Spondylosis; intervertebral disc disorders; other back problems (5 sources) Backache; Translations: [Dorsalgia, unspecified] Onset: 11-11-2023 Episodic Sprains and strains (2 sources) Strain of muscle, fascia and tendon of the posterior muscle group at thigh level, left thigh, initial encounter; Translations: [Strain of muscle, fascia and tendon of lower back, initial encounter] Onset: 03-30-2024 Episodic Substance-related disorders (16 sources) Narcotic drug user; Translations: [Opioid dependence, uncomplicated] Onset: 11-10-2017 11-10-2017 Chronic Superficial injury; contusion (2 sources) Contusion of left hand; Translations: [Contusion of left hand, initial encounter] Onset: 05-28-2024 05-28-2024 Episodic Unclassified (3 sources) Patient encounter status; Translations: [Drug abuse counseling and surveillance of drug abuser] Onset: 04-23-2017 Resolved: 01-12-2019 04-23-2017 Past or Other Problems Problem Classification Problem Date Documented Da te Episodic/Chronic Administrative/social admission (20 sources) Patient encounter status; Translations: [Drug abuse counseling and surveillance of drug abuser] Onset: 04-23-2017 Resolved: 12-02-2023 04-23-2017 Episodic Bacterial infection; unspecified site (1 source) Other specified bacterial agents as the cause of diseases classified elsewhere; Translations: [Other specified bacterial agents as the cause of diseases classified elsewhere] Onset: 01-11-2024 Episodic Biliary tract disease (3 sources) Other specified diseases of gallbladder; 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] Onset: 11-24-2023 05-17-2024 Episodic Cancer of cervix (11 sources) Atypical squamous cells of undetermined significance on cervical Papanicolaou smear; Translations: [Atypical squamous cells of undetermined significance on cytologic smear of cervix (ASC-US)] Onset: 06-30-2022 Episodic Inflammatory diseases of female pelvic organs (2 sources) Bacterial vaginosis; Translations: [Acute vaginitis] Onset: 01-11-2024 01-11-2024 Episodic Intestinal obstruction without hernia (1 source) Intussusception; Translations: [Intussusception] Onset: 10-21-2023 Episodic Other female genital disorders (10 sources) Pelvic congestion syndrome; Translations: [Other specified conditions associated with female genital organs and menstrual cycle] Onset: 12-02-2023 12-02-2023 Episodic Other gastrointestinal disorders (9 sources) Constipation; Translations: [Constipation, unspecified] Onset: 01-15-2024 01-15-2024 Episodic Other gastrointestinal disorders (9 sources) Diarrhea; Translations: [Diarrhea, unspecified] Onset: 01-15-2024 01-15-2024 Episodic Other gastrointestinal disorders (1 source) Diarrhea, unspecified; Translations: [Diarrhea, unspecified] Onset: 01-15-2024 Episodic Other infections; including parasitic (3 sources) Personal history of other infectious and parasitic diseases; Translations: [Personal history of other infectious and parasitic diseases] Onset: 11-16-2023 Episodic Other screening for suspected conditions (not mental disorders or infectious disease) (3 sources) Cancer cervix screening status; Translations: [Encounter for screening for malignant neoplasm of cervix] Onset: 11-08-2023 Episodic Other skin disorders (9 sources) Skin tag; Translations: [Other hypertrophic disorders of the skin] Onset: 06-30-2022 06-30-2022 Episodic Other upper respiratory disease (10 sources) Nasal discharge; Translations: [Other specified disorders of nose and nasal sinuses] Onset: 01-15-2024 01-15-2024 Episodic Other upper respiratory disease (1 source) Other specified disorders of nose and nasal sinuses; Translations: [Other specified disorders of nose and nasal sinuses] Onset: 01-15-2024 Episodic Residual codes; unclassified (1 source) Other general symptoms and signs; Translations: [Other general symptoms and signs] Onset: 01-22-2024 Episodic Unclassified (1 source) Maxillary sinusitis, unspecified chronicity Results Test Name Value Interpretation Reference Range Facility XR HAND LEFT (MIN 3 VIEWS)on 05-29-2024 XR HAND LEFT (MIN 3 VIEWS) EXAMINATION: THREE X-RAY VIEWS OF THE LEFT HAND 05/28/2024 10:20 pm COMPARISON: None HISTORY: ORDERING SYSTEM PROVIDED HISTORY: Pain to anatomical snuff box. TECHNOLOGIST PROVIDED HISTORY: Pain to anatomical snuff box. FINDINGS: No evidence of fracture or healing fracture, or osseous malalignment or any other diagnostic findings on the radiographs of the left hand. IMPRESSION: No radiographic evidence of acute fracture or malalignment in the left hand. Interpreted by: Jonathan Wills MD Signed by: Jonathan Wills MD 05/29/24 Final result Normal [facility] C-Reactive Proteinon 024 CRP [Mass/Vol] mg/L Normal 0.0-5.0 [facility] Comment on above: Performed By: #### U MICAO, UAX #### [facility] [address] [place], [place] [id number] Branch Credit Counselor: Calin Tapia MD CBC with Diffon 05-23-2024 Abs. Basophil 0.06 k/uL Normal 0.00-0.20 [facility] Comment on above: Performed By: #### T SHX #### [facility] [address] [place], [place] [address] Branch Credit Counselor: Calin Tapia MD Abs.Imm.Granulocyte <0.03 Normal 0.00-0.30 [facility] Comment on above: Performed By: #### T SHX #### [address] [place], [facility]83 Branch Credit Counselor: Calin Tapia MD Abs.Neutrophil (Seg) 4.11 k/uL Normal 1.50-8.10 [facility] Comment on above: Performed By: #### T SHX #### [address] [place], [place] [id number] Branch Credit Counselor: Calin Tapia MD Basophils/100 WBC (Bld) 1 % Normal 0-2 [facility] Comment on above: Performed By: #### T SHX #### [address] [place], [place] [address] Branch Credit Counselor: Calin Tapia MD Eosinophils (Bld) [#/Vol] 0.21 10*3/uL Normal 0.00-0.44 [facility] Comment on above: Performed By: #### T SHX #### [address] [place], [place] [id number] Branch Credit Counselor: Calin Tapia MD Eosinophils/100 WBC (Bld) 3 % Normal 1-4 [facility] Comment on above: Performed By: #### T SHX #### [facility] [address] [place] [address] [place] [place] [id number] Branch Credit Counselor: Calin Tapia MD Erythrocyte distribution width (RBC) [Ratio] 11.5 % Low 11.8-14.4 [facility] Comment on above: Performed By: #### T SHX #### [facility] [address] [place], [place] [id number] Branch Credit Counselor: Calin Tapia MD Hematocrit (Bld) [Volume fraction] 37.4 % Normal 36.3-47.1 [facility] Comment on above: Performed By: #### T SHX #### [facility] [address] [place], [facility] Branch Credit Counselor: Calin Tapia MD Hemoglobin (Bld) [Mass/Vol] 13.4 g/dL Normal 11.9-15.1 [facility] Comment on above: Performed By: #### T SHX #### [facility] [address] [place] [address] [address] [place], [facility] Branch Credit Counselor: Calin Tapia MD Immature granulocytes/100 WBC (Bld) 0 % Normal 0 [facility] Comment on above: Performed By: #### T SHX #### [address] [place], [facility] Branch Credit Counselor: Calin Tapia MD Lymphocytes (Bld) [#/Vol] 2.38 10*3/uL Normal 1.10-3.70 [facility] Comment on above: Performed By: #### T SHX #### [facility] [address] [place], [place] [id number] Branch Credit Counselor: Calin Tapia MD Lymphocytes/100 WBC (Bld) 33 % Normal 24-43 [facility] Comment on above: Performed By: #### T SHX #### [facility] [address] [place], [place] [id number] Branch Credit Counselor: Calin Tapia MD MCH (RBC) [Entitic mass] 33.7 pg High 25.2-33.5 [facility] Comment on above: Performed By: #### T SHX #### [facility] [address] [place], [place] [id number] Branch Credit Counselor: Calin Tapia MD MCHC (RBC) [Mass/Vol] 35.8 g/dL High 28.4-34.8 [facility] Comment on above: Performed By: #### T SHX #### [facility] [address] [place], [place] [id number] Branch Credit Counselor: Calin Tapia MD MCV (RBC) [Entitic vol] 94.0 fL Normal 82.6-102.9 [facility] Comment on above: Performed By: #### T SHX #### [facility] [address] [place], [facility]83 Branch Credit Counselor: Calin Tapia MD Monocytes (Bld) [#/Vol] 0.43 10*3/uL Normal 0.10-1.20 [facility] Comment on above: Performed By: #### T SHX #### [facility] [address] [place], [place] [id number] Branch Credit Counselor: Calin Tapia MD Monocytes/100 WBC (Bld) 6 % Normal 3-12 [facility] Comment on above: Performed By: #### T SHX #### [facility] [address] [place], [facility]83 Branch Credit Counselor: Calin Tapia MD Neutrophil (Seg) 57 % Normal 36-65 [facility] Comment on above: Performed By: #### T SHX #### [facility] [address] [place], [place] [id number] Branch Credit Counselor: Calin Tapia MD NRBC Automated 0.0 per 100 WBC Normal 0.0 [facility] Comment on above: Performed By: #### T SHX #### [facility] [address] [place], [place] [id number] Branch Credit Counselor: Calin Tapia MD Platelet mean volume (Bld) [Entitic vol] 9.6 fL Normal 8.1-13.5 [facility] Comment on above: Performed By: #### T SHX #### [address] [place] [address] Branch Credit Counselor: Calin Tapia MD Platelets (Bld) [#/Vol] 235 10*3/uL Normal 138-453 [facility] Comment on above: Performed By: #### T SHX #### [address] [place] [address] Branch Credit Counselor: Calin Tapia MD RBC (Bld) [#/Vol] 3.98 10*6/uL Normal 3.95-5.11 [facility] Comment on above: Performed By: #### T SHX #### [address] [place], [place] [id number] Branch Credit Counselor: Calin Tapia MD WBC (Bld) [#/Vol] 7.2 10*3/uL Normal 3.5-11.3 [facility] Comment on above: Performed By: #### T SHX #### [address] [place], [place] [address]385483 Branch Credit Counselor: Calin Tapia MD Comp Metabolic Profon 2023 Albumin [Mass/Vol] 4.7 g/dL Normal 3.5-5.2 [facility] Comment on above: Performed By: #### T SHX #### [address] [place], [place] [address] Branch Credit Counselor: Calin Tapia MD Albumin/Glob Ratio 2.2 Normal 1.0-2.5 [facility] Comment on above: Performed By: #### T SHX #### [address] [place], [place] [address] Branch Credit Counselor: Calin Tapia MD Alkaline Phos 49 U/L Normal 35-104 [facility] Comment on above: Performed By: #### T SHX #### [facility] [address] [place], [place] [address] Branch Credit Counselor: Calin Tapia MD ALT [Catalytic activity/Vol] 15 U/L Normal 10-35 [facility] Comment on above: Performed By: #### T SHX #### [facility] [address] [place], [place] [id number] Branch Credit Counselor: Calin Tapia MD Anion gap [Moles/Vol] 9 mmol/L Normal 9-16 [facility] Comment on above: Performed By: #### T SHX #### [facility] [address] [place], [place] [address] Branch Credit Counselor: Calin Tapia MD AST [Catalytic activity/Vol] 20 U/L Normal 10-35 [facility] Comment on above: Performed By: #### T SHX #### [facility] [address] [place], [place] [address]83 Branch Credit Counselor: Calin Tapia MD Bilirubin [Mass/Vol] 0.6 mg/dL Normal 0.00-1.20 [facility] Comment on above: Performed By: #### T SHX #### [facility] [address] [place], [place] [address] Branch Credit Counselor: Calin Tapia MD BUN/CRE Ratio 13 Normal 9-20 [facility] Comment on above: Performed By: #### T SHX #### [facility] [address] [place], [place] [address] Branch Credit Counselor: Calin Tapia MD Calcium [Mass/Vol] 9.3 mg/dL Normal 8.6-10.4 [facility] Comment on above: Performed By: #### T SHX #### [facility] [address] [place] [address]83 Branch Credit Counselor: Calin Tapia MD Chloride [Moles/Vol] 103 mmol/L Normal 98-107 [facility] Comment on above: Performed By: #### T SHX #### [facility] [address] [place] [address] Branch Credit Counselor: Calin Tapia MD CO2 [Moles/Vol] 27 mmol/L Normal 20-31 [facility] Comment on above: Performed By: #### T SHX #### [facility] [address] [place] [address] Branch Credit Counselor: Calin Tapia MD Creatinine [Mass/Vol] 0.9 mg/dL Normal 0.50-0.90 [facility] Comment on above: Performed By: #### T SHX #### [facility] [address] [place] [address] Branch Credit Counselor: Calin Tapia MD GFR/1.73 sq M.predicted among non-blacks MDRD (S/P/Bld) [Vol rate/Area] mL/min/{1.73_m2} Normal >60 [facility] Comment on above: Result Comment: These results are not intended for use in patients <18 years of age. eGFR results are calculated without a race factor using the 2020 CKD-EPI equation. Careful clinical correlation is recommended, particularly when comparing to results calculated using previous equations. The CKD-EPI equation is less accurate in patients with extremes of muscle mass, extra-renal metabolism of creatine, excessive creatine ingestion, or following therapy that affects renal tubular secretion. Performed By: #### T SHX #### [facility] [address] [place] [address] Branch Credit Counselor: Calin Tapia MD Glucose [Mass/Vol] 122 mg/dL High 74-99 [facility] Comment on above: Performed By: #### T SHX #### [facility] [address] [place] [address] Branch Credit Counselor: Calin Tapia MD Potassium [Moles/Vol] 3.8 mmol/L Normal 3.7-5.3 [facility] Comment on above: Performed By: #### T SHX #### [facility] [address] [place] [address] Branch Credit Counselor: Calin Tapia MD Protein [Mass/Vol] 6.9 g/dL Normal 6.6-8.7 [facility] Comment on above: Performed By: #### T SHX #### [facility] [address] [place] [address] Branch Credit Counselor: Calin Tapia MD Sodium [Moles/Vol] 139 mmol/L Normal 136-145 [facility] Comment on above: Performed By: #### T SHX #### [facility] [address] [place] [address] Branch Credit Counselor: Calin Tapia MD Urea nitrogen [Mass/Vol] 12 mg/dL Normal 6-20 [facility] Comment on above: Performed By: #### T SHX #### [facility] [address] [place] [address] Branch Credit Counselor: Calin Tapia MD D-Dimer Teston 05-23-2024 D-Dimer Test <0.27 Normal 0.00-0.59 [facility] Comment on above: Result Comment: When combined with a low clinical probability, a D dimer value of <0.50 ug/mL FEU is considered negative for DVT and PE (negative predictive value of 98%, sensitivity of 97%). If this test is not being used to help rule out DVT and PE, then the following reference range should be utilized: 0.00 - 0.59 ug/mL FEU. The D-Dimer assay is intended for use as an aid in the diagnosis of venous thromboembolism (DVT and PE) and the results should be interpreted in conjunction with the patient's medical history, clinical presentation, and other findings. Elevated levels of D-dimer activity can be seen in any state of coagulation activation and is not recommended in patients with therapeutic dose anticoagulant therapy for >24 hours, fibrinolytic therapy within the previous 7 days, trauma or surgery within the previous 4 weeks, disseminated malignancies, aortic aneurysm, sepsis, severe infections, pneumonia, severe skin infections, liver cirrhosis, advanced age, coronary disease, diabetes, and . A very low percentage of patients with DVT may yield D-dimer results below the cutoff of 0.5 ug/mL FEU. This is known to be more prevalent in patients with distal DVT. Performed By: #### U KATHERINEO, UAX #### [facility] [address] [place] [address] Branch Credit Counselor: Calin Tapia MD Magnesiumon 386 Magnesium [Mass/Vol] 2.3 mg/dL Normal 1.6-2.6 [facility] Comment on above: Performed By: #### T SHX #### [address] [place] [address] Branch Credit Counselor: Calin Tapia MD UA w/Reflex Cultureon 084 Bilirubin, SemiQt,Ur Negative Normal NEG [facility] Comment on above: Performed By: #### U KATHERINEO UAX #### [address] [place] [address] Branch Credit Counselor: Calin Tapia MD Blood, Urine Negative Normal NEG [facility] Comment on above: Performed By: #### U KATHERINEO, UAX #### [facility] [address] [place] [address] Branch Credit Counselor: Calin Tapia MD Clarity (U) Clear Normal CLEAR [facility] Comment on above: Performed By: #### U KATHERINEO, UAX #### [facility] [address] [place] [address] Branch Credit Counselor: Calin Tapia MD Color (U) Yellow Normal YEL [facility] Comment on above: Performed By: #### U KATHERINEO, UAX #### [facility] [address] [place] [address] [place], [place] [address] Branch Credit Counselor: Calin Tapia MD Glucose Ql (U) Negative Normal NEG [facility] Comment on above: Performed By: #### U MICAO, UAX #### [address] [place], [place] [address]3 Branch Credit Counselor: Calin Tapia MD Ketones Ql (U) Negative Normal NEG [facility] Comment on above: Performed By: #### U MICAO, UAX #### [facility] [address] [place] [address] [place], [place] [id number] Branch Credit Counselor: Calin Tapia MD Leukocyte esterase Test strip Ql (U) Negative Normal NEG [facility] Comment on above: Performed By: #### U MICAO, UAX #### [address] [place], [facility]83 Branch Credit Counselor: Calin Tapia MD Nitrite,Ur Negative Normal [facility] Comment on above: Performed By: #### U MICAO, UAX #### [address] [place], [place] [address]783 Branch Credit Counselor: Calin Tapia MD PH,Ur 6.5 Normal 5.0-9.0 [facility] Comment on above: Performed By: #### U MICAO, UAX #### [address] [place], [place] [address] Branch Credit Counselor: Calin Tapia MD Protein Ql (U) Negative Normal NEG [facility] Comment on above: Performed By: #### U MICAO, UAX #### [address] [place] [address] Branch Credit Counselor: Calin Tapia MD Spec. [place],Ur 1.015 Normal 1.010-1.020 [facility] Comment on above: Performed By: #### U MICAO, UAX #### [facility] [address] [place] [address] [place], [place] [address] Branch Credit Counselor: Calin Tapia MD Urobilinogen,Ur Normal Normal 0.0-1.0 [facility] Comment on above: Performed By: #### U MICAO, UAX #### [facility] [address] [place], [place] [address] Branch Credit Counselor: Calin Tapia MD Urinalysis,Microon 4 Epithelial cells LM Ql (Urine sed) 0 TO 2 Normal 0-25 [facility] Comment on above: Performed By: #### U DA, UAX #### [facility] [address] [place], [place] [address] Branch Credit Counselor: Calin Tapia MD Urine RBC's 0 TO 2 Normal 0-2 [facility] Comment on above: Performed By: #### U DA, UAX #### [facility] [address] [place], [place] [address]185483 Branch Credit Counselor: Calin Tapia MD Urine WBC's 0 TO 2 Normal 0-5 [facility] Comment on above: Performed By: #### U DA, UAX #### [facility] [address] [place] [address] Branch Credit Counselor: Calin Tapia MD BETA HCG, QUAL, BLOODon HCG ( test) Ql Negative [facility] CBCon 05-07-2024 ABSOLUTE BAS 0.1 10*3/uL Normal 0.0-0.2 [facility] Comment on above: Performed By: #### A CBC #### Testing performed at [address] [address] ABSOLUTE EOS 0.1 10*3/uL Normal 0.0-0.7 [facility] Comment on above: Performed By: #### A CBC #### Testing performed at [address] [address] ABSOLUTE NEUTROPHIL COUNT 4.8 10*3/uL Normal 1.4-6.5 [facility] Comment on above: Performed By: #### A CBC #### Testing performed at [address] [place] [address] Basophils/100 WBC (Bld) 0.8 % Normal 0.0-2.0 [facility] Comment on above: Performed By: #### A CBC #### Testing performed at [address] [place] [address] DTYPE AUTO DIFF Normal [facility] Comment on above: Performed By: #### A CBC #### Testing performed at [address] [address] Eosinophils/100 WBC (Bld) 0.8 % Normal 0.0-11.0 [facility] Comment on above: Performed By: #### A CBC #### Testing performed at [address] [address] Lymphocytes (Bld) [#/Vol] 1.6 10*3/uL Normal 1.2-3.4 [facility] Comment on above: Performed By: #### A CBC #### Testing performed at [address] [place] [address] Lymphocytes/100 WBC (Bld) 22.8 % Normal 20.0-55.0 [facility] Comment on above: Performed By: #### A CBC #### Testing performed at [address] [place] [address] Monocytes (Bld) [#/Vol] 0.5 10*3/uL Normal 0.0-0.7 [facility] Comment on above: Performed By: #### A CBC #### Testing performed at [address] [place] [address] Monocytes/100 WBC (Bld) 6.6 % Normal 0.0-10.0 [facility] Comment on above: Performed By: #### A CBC #### Testing performed at [address] [address] Neutrophils/100 WBC (Bld) 69.0 % Normal 37.0-75.0 [facility] Comment on above: Performed By: #### A CBC #### Testing performed at [address] [address] Erythrocyte distribution width (RBC) [Ratio] 12.7 % Normal 11.5-14.5 [facility] Comment on above: Performed By: #### A CBC #### Testing performed at [address] [address] Hematocrit (Bld) [Volume fraction] 35.6 % Low 36.0-48.0 [facility] Comment on above: Performed By: #### A CBC #### Testing performed at [address] [address] Hemoglobin (Bld) [Mass/Vol] 12.6 g/dL Normal 12.0-16.0 [facility] Comment on above: Performed By: #### A CBC #### Testing performed at [address] [address] MCH (RBC) [Entitic mass] 34.2 pg Normal 26.0-35.0 [facility] Comment on above: Performed By: #### A CBC #### Testing performed at [address] [address] MCHC (RBC) [Mass/Vol] 35.3 g/dL Normal 27.0-37.0 [facility] Comment on above: Performed By: #### A CBC #### Testing performed at [address] [address] MCV (RBC) [Entitic vol] 96.8 fL Normal 80.0-100.0 [facility] Comment on above: Performed By: #### A CBC #### Testing performed at [address] [address] Platelet mean volume (Bld) [Entitic vol] 7.3 fL Low 7.4-11.0 [facility] Comment on above: Performed By: #### A CBC #### Testing performed at [place] [address] [place] [address] Platelets (Bld) [#/Vol] 231 10*3/uL Normal 130-400 [facility] Comment on above: Performed By: #### A CBC #### Testing performed at [place] [address] [place] [address] RBC (Bld) [#/Vol] 3.68 10*6/uL Low 4.0-5.4 [facility] Comment on above: Performed By: #### A CBC #### Testing performed at [address] [place] [address] WBC (Bld) [#/Vol] 6.9 10*3/uL Normal 3.6-11.0 [facility] Comment on above: Performed By: #### A CBC #### Testing performed at [address] [place] [address] CBC, EDIF, PLATELETon 2023 ABSOLUTE BASOPHIL COUNT 0.1 10*3/uL 0.0 - 0.2 10*3/uL [facility] Basophils/100 WBC (Bld) 0.8 % 0.0 - 2.0 % [facility] Differential cell count method Nom (Bld) AUTO DIFF % [facility] Eosinophils (Bld) [#/Vol] 0.1 10*3/uL 0.0 - 0.7 10*3/uL [facility] Eosinophils/100 WBC (Bld) 0.8 % 0.0 - 11.0 % [facility] Erythrocyte distribution width (RBC) [Ratio] 12.7 % 11.5 - 14.5 % [facility] Hematocrit (Bld) [Volume fraction] 35.6 % Low 36.0 - 48.0 % [facility] Hemoglobin (Bld) [Mass/Vol] 12.6 g/dL [facility] Interpretation and review of laboratory results Abnormal [facility] Lymphocytes (Bld) [#/Vol] 1.6 10*3/uL 1.2 - 3.4 10*3/uL [facility] Lymphocytes/100 WBC (Bld) 22.8 % 20.0 - 55.0 % [facility] MCH (RBC) [Entitic mass] 34.2 pg 26.0 - 35.0 PG [facility] MCHC (RBC) [Mass/Vol] 35.3 g/dL [facility] MCV (RBC) [Entitic vol] 96.8 fL [facility] Monocytes (Bld) [#/Vol] 0.5 10*3/uL 0.0 - 0.7 10*3/uL [facility] Monocytes/100 WBC (Bld) 6.6 % 0.0 - 10.0 % [facility] Neutrophils (Bld) [#/Vol] 4.8 10*3/uL 1.4 - 6.5 10*3/uL [facility] Neutrophils/100 WBC (Bld) 69.0 % 37.0 - 75.0 % [facility] Platelet mean volume (Bld) [Entitic vol] 7.3 fL Low [facility] Platelets (Bld) [#/Vol] 231 10*3/uL 130 - 400 10*3/uL [facility] RBC (Bld) [#/Vol] 3.68 10*6/uL Low 4.0 - 5.4 10*6/uL [facility] WBC (Bld) [#/Vol] 6.9 10*3/uL 3.6 - 11.0 10*3/uL [facility] CMP FASTINGon 05-07-2024 A:G RATIO 1.4 RATIO Normal 1.3-2.2 [facility] Comment on above: Performed By: #### A CBC #### Testing performed at [address] [place] [address] ALBUMIN 4.2 G/dl Normal 3.5-5.0 [facility] Comment on above: Performed By: #### A CBC #### Testing performed at [address] [place] [address] ALP [Catalytic activity/Vol] 44 U/L Normal 38-126 [facility] Comment on above: Performed By: #### A CBC #### Testing performed at [address] [address] ALT [Catalytic activity/Vol] 17 U/L Normal <35 [facility] Comment on above: Performed By: #### A CBC #### Testing performed at [address] [address] AST [Catalytic activity/Vol] 24 U/L Normal 14-36 [facility] Comment on above: Performed By: #### A CBC #### Testing performed at [address] [address] Bilirubin [Mass/Vol] 0.7 mg/dL Normal 0.2-1.3 [facility] Comment on above: Performed By: #### A CBC #### Testing performed at [address] [address] Calcium [Mass/Vol] 8.7 mg/dL Normal 8.4-10.2 [facility] Comment on above: Performed By: #### A CBC #### Testing performed at [address] [address] Chloride [Moles/Vol] 110 mmol/L High 98-107 [facility] Comment on above: Result Comment: Plea se note: Triglyceride levels of 600mg/dL or higher may positively bias chloride results by approximately 2.1 mmol Performed By: #### A CBC #### Testing performed at [address] [address] CO2 [Moles/Vol] 23 mmol/L Normal 22-30 [facility] Comment on above: Performed By: #### A CBC #### Testing performed at [address] [address] Creatinine [Mass/Vol] 0.70 mg/dL Normal 0.7-1.2 [facility] Comment on above: Performed By: #### A CBC #### Testing performed at [address] [address] EST. GFR, 127 ml/min/1.73sq.m [facility] Comment on above: Performed By: #### A CBC #### Testing performed at [address] [address] EST. GFR,Non 105 ml/min/1.73sq.m [facility] Comment on above: Performed By: #### A CBC #### Testing performed at [address] [address] GFR Information Average GFR for 18-2 9 years old = 116. Normal [facility] Comment on above: Result Comment: Coremaker Bench silvano Kidney disease, GFR = <60. Kidney failure, GFR = <15. The GFR estimate is not adjusted for extreme body surface area or acute process, nor has it been validated for women or ethnic groups other than and . Performed By: #### A CBC #### Testing performed at [address] [address] Glucose [Mass/Vol] 86 mg/dL Normal 70-100 [facility] Comment on above: Result Comment: NORMAL <100 mg/dL PREDIABETES 101-126 mg/dL DIABETES 126 mg/dL or higher Performed By: #### A CBC #### Testing performed at [address] [address] Potassium [Moles/Vol] 4.3 mmol/L Normal 3.5-5.1 [facility] Comment on above: Performed By: #### A CBC #### Testing performed at [address] [address] Protein [Mass/Vol] 7.2 g/dL Normal 6.3-8.2 [facility] Comment on above: Performed By: #### A CBC #### Testing performed at [address] [address] Sodium [Moles/Vol] 140 mmol/L Normal 137-145 [facility] Comment on above: Performed By: #### A CBC #### Testing performed at [facility] [address] [place] [address] Urea nitrogen [Mass/Vol] 8 mg/dL Normal 7-20 [facility] Comment on above: Performed By: #### A CBC #### Testing performed at [id number] COMPREHENSIVE METABOLIC PANE Akash 05-07-2024 Albumin [Mass/Vol] 4.2 G/dl 3.5 - 5.0 G/dl [facility] Albumin/Globulin [Mass ratio] 1.4 {ratio} [facility] ALP [Catalytic activity/Vol] 44 U/L [facility] ALT [Catalytic activity/Vol] 17 U/L NINF [facility] AST [Catalytic activity/Vol] 24 U/L [facility] Bilirubin [Mass/Vol] 0.7 mg/dL [facility] Calcium [Mass/Vol] 8.7 mg/dL [facility] Chloride [Moles/Vol] 110 mmol/L High [facility] Comment on above: Please note: Triglyc eride levels of 600mg/dL or higher may positively bias chloride results by approximately 2.1 mmol CO2 [Moles/Vol] 23 mmol/L [facility] Creatinine [Mass/Vol] 0.70 mg/dL [facility] GFR COMMENT Average GFR for 18-2 9 years old = 116. [facility] Comment on above: Chronic Kidney disea se, GFR = <60. Kidney failure, GFR = <15. The GFR estimate is not adjusted for extreme body surface area or acute process, nor has it been validated for women or ethnic groups other than and . GFR/1.73 sq M.predicted among blacks MDRD (S/P/Bld) [Vol rate/Area] 127 mL/min/{1.73_m2} ml/min/1.73sq .m [facility] GFR/1.73 sq M.predicted among non-blacks MDRD (S/P/Bld) [Vol rate/Area] 105 mL/min/{1.73_m2} ml/min/1.73sq .m [facility] Glucose post fast [Mass/Vol] 86 mg/dL [facility] Comment on above: NORMAL <100 mg/dL PREDIABETES 101-126 mg/dL DIABETES 126 mg/dL or higher Interpretation and review of laboratory results Abnormal [facility] Potassium [Moles/Vol] 4.3 mmol/L [facility] Protein [Mass/Vol] 7.2 g/dL [facility] Sodium [Moles/Vol] 140 mmol/L [facility] Urea nitrogen [Mass/Vol] 8 mg/dL [facility] HCG ( test) Qlon [facility] HCG ( test) Ql (U)o n 05-07-2024 [facility] HCG QUALITATIVE, URINEon HCG ( test) Ql (U) Negative [facility] LIPASEon 05-07-2024 Lipase [Catalytic activity/Vol] 44 U/L 23 - 300 U/L [facility] LIPASE,SERUMon 05-07-2024 LIPASE,SERUM 44 U/L Normal 23-300 [facility] Comment on above: Performed By: #### A CBC #### [place] [address] No Panel Informationon 05-07 [facility] SERUM HCG QUALon 05-07-2024 SERUM BETA HCG,QUAL Negative Normal [facility] Comment on above: Performed By: #### A CBC #### [place] [address] URINALYSIS, MACROon 05-07-20 24 Bilirubin Ql (U) Negative NEGATIVE [facility] Clarity (U) CLEAR CLEAR [facility] Color (U) LIGHT YELLOW Abnormal YELLOW [facility] Glucose Test strip (U) [Mass/Vol] Negative NEGATIVE mg/dl [facility] Hemoglobin Ql (U) Negative NEGATIVE [facility] Interpretation and review of laboratory results Abnormal [facility] Ketones (U) [Mass/Vol] Negative NEGATIVE mg/dl [facility] Leukocyte esterase Test strip Ql (U) Negative NEGATIVE [facility] Nitrite Ql (U) Negative NEGATIVE [facility] pH (U) 7.5 [pH] High 5.0 - 7.0 [facility] Protein Ql (U) Negative NEGATIVE mg/dl [facility] Specific gravity (U) [Rel density] 1.010 1.010 - 1.025 [facility] Urobilinogen (U) [Mass/Vol] 0.2 mg/dL [facility] URINE HCG QUALon 05-07-2024 Beta HCG ( test) Ql (U) Negative Normal [facility] URINE MACROSCOPICon 05-07-20 24 Bilirubin Ql (U) Negative Normal NEGATIVE [facility] Clarity (U) CLEAR Normal CLEAR [facility] Color (U) LIGHT YELLOW Abnormal YELLOW [facility] Glucose Ql (U) Negative Normal NEGATIVE [facility] pH (U) 7.5 [pH] High 5.0-7.0 [facility] URINE HEMOGLOBIN Negative Normal NEGATIVE [facility] URINE KETONE Negative Normal NEGATIVE [facility] URINE LEUKOTEST Negative Normal NEGATIVE [facility] URINE NITRATES Negative Normal NEGATIVE [facility] URINE SPEC GRAVITY 1.010 Normal 1.010-1.025 [facility] URINE TOTAL PROTEIN Negative Normal NEGATIVE [facility] Urobilinogen Qn (U) 0.2 {Shane'U}/dL Normal 0.2-1.0 [facility] URINE MICROSCOPICon 05-07-20 24 Bacteria LM.HPF (Urine sed) [#/Area] Negative NEGATIVE [facility] Casts LM.LPF (Urine sed) [#/Area] NONE NONE /LPF [facility] Crystals LM Nom (Urine sed) NONE NONE [facility] Epithelial cells LM Ql (Urine sed) 1 TO 5 /HPF [facility] Mucus Ql (Urine sed) Negative NEGATIVE [facility] RBC LM.HPF (Urine sed) [#/Area] Negative NEGATIVE /HPF [facility] Urine sediment comments LM Moses (Urine sed) CULTURE CRITERIA NOT MET, NO CULTURE PERFORMED. [facility] WBC LM.HPF (Urine sed) [#/Area] 1 TO 5 NEGATIVE /HPF [facility] Bacteria LM.HPF (Urine sed) [#/Area] Negative Normal NEGATIVE [facility] CASTS NONE Normal NONE [facility] CRYSTAL NONE Normal NONE [facility] Epithelial cells LM Ql (Urine sed) 1 TO 5 Normal [facility] Mucus Ql (Urine sed) Negative Normal NEGATIVE [facility] URINE COMMENT CULTURE CRITERIA NOT MET, NO CULTURE PERFORMED. Normal [facility] URINE RBC'S Negative Normal NEGATIVE [facility] URINE WBC'S 1 TO 5 Normal NEGATIVE [facility] CBC with Auto Differentialon 05-02-2024 Basophils (Bld) [#/Vol] 0.09 10*3/uL [facility] Basophils/100 WBC (Bld) 1 % 0 - 2 % [facility] Eosinophils (Bld) [#/Vol] 0.39 10*3/uL [facility] Eosinophils/100 WBC (Bld) 4 % 1 - 4 % [facility] Erythrocyte distribution width (RBC) [Ratio] 11.7 % Low 11.8 - 14.4 % [facility] Hematocrit (Bld) [Volume fraction] 37.2 % 36.3 - 47.1 % [facility] Hemoglobin (Bld) [Mass/Vol] 13.6 g/dL 11.9 - 15.1 g/dL [facility] Immature granulocytes (Bld) [#/Vol] [facility] Immature granulocytes/100 WBC (Bld) 0 % 0 [facility] Interpretation and review of laboratory results Abnormal [facility] Lymphocytes/100 WBC (Bld) 36 % 24 - 43 % [facility] Lymphocytes/100 WBC (Bld) 3.47 % [facility] MCH (RBC) [Entitic mass] 34.0 pg High 25.2 - 33.5 pg [facility] MCHC (RBC) [Mass/Vol] 36.6 g/dL High 28.4 - 34.8 g/dL [facility] MCV (RBC) [Entitic vol] 93.0 fL 82.6 - 102.9 fL [facility] Monocytes/100 WBC (Bld) 6 % 3 - 12 % [facility] Monocytes/100 WBC (Bld) 0.62 % [facility] Neutrophils/100 WBC (Bld) 53 % 36 - 65 % [facility] Nucleated RBC/100 WBC (Bld) [Ratio] 0.0 % 0.0 per 100 WBC [facility] Platelet mean volume (Bld) [Entitic vol] 9.9 fL 8.1 - 13.5 fL [facility] Platelets (Bld) [#/Vol] 278 10*3/uL [facility] RBC (Bld) [#/Vol] 4.00 10*6/uL 3.95 - 5.1 1 m/uL [facility] Segmented neutrophils/100 WBC (Bld) 5.18 % [facility] WBC other (Bld) [#/Vol] 9.8 [facility] CBC with Diffon 05-02-2024 Abs. Basophil 0.09 k/uL Normal 0.00-0.20 [facility] Comment on above: Performed By: #### T SHX #### [facility] [address] [place] [address] [id number] Branch Credit Counselor: Calin Tapia MD Abs.Imm.Granulocyte <0.03 Normal 0.00-0.30 [facility] Comment on above: Performed By: #### T SHX #### [address] [place], [place] [id number] [employer] Counselor: Calin Tapia MD Abs.Neutrophil (Seg) 5.18 k/uL Normal 1.50-8.10 [facility] Comment on above: Performed By: #### T SHX #### [facility] [address] [place], [place] [id number] [employer] Counselor: Calin Tapia MD Basophils/100 WBC (Bld) 1 % Normal 0-2 [facility] Comment on above: Performed By: #### T SHX #### [facility] [address] [place], [place] [id number] [employer] Counselor: Calin Tapia MD Eosinophils (Bld) [#/Vol] 0.39 10*3/uL Normal 0.00-0.44 [facility] Comment on above: Performed By: #### T SHX #### [facility] [address] [place] [address] [employer] Counselor: Calin Tapia MD Eosinophils/100 WBC (Bld) 4 % Normal 1-4 [facility] Comment on above: Performed By: #### T SHX #### [facility] [address] [place], [facility]83 [employer] Counselor: Calin Tapia MD Erythrocyte distribution width (RBC) [Ratio] 11.7 % Low 11.8-14.4 [facility] Comment on above: Performed By: #### T SHX #### [address] [place], [facility]83 [employer] Counselor: Calin Tapia MD Hematocrit (Bld) [Volume fraction] 37.2 % Normal 36.3-47.1 [facility] Comment on above: Performed By: #### T SHX #### [address] [place], [facility]83 [employer] Counselor: Calin Tapia MD Hemoglobin (Bld) [Mass/Vol] 13.6 g/dL Normal 11.9-15.1 [facility] Comment on above: Performed By: #### T SHX #### [address] [place], [facility]83 [employer] Counselor: Calin Tapia MD Immature granulocytes/100 WBC (Bld) 0 % Normal 0 [facility] Comment on above: Performed By: #### T SHX #### [address] [place] [address] [employer] Counselor: Calin Tapia MD Lymphocytes (Bld) [#/Vol] 3.47 10*3/uL Normal 1.10-3.70 [facility] Comment on above: Performed By: #### T SHX #### [facility] [address] [place], [place] [id number] [employer] Counselor: Calin Tapia MD Lymphocytes/100 WBC (Bld) 36 % Normal 24-43 [facility] Comment on above: Performed By: #### T SHX #### [facility] [address] [place], [facility]83 [employer] Counselor: Calin Tapia MD MCH (RBC) [Entitic mass] 34.0 pg High 25.2-33.5 [facility] Comment on above: Performed By: #### T SHX #### [facility] [address] [place] [id number] [employer] Counselor: Calin Tapia MD MCHC (RBC) [Mass/Vol] 36.6 g/dL High 28.4-34.8 [facility] Comment on above: Performed By: #### T SHX #### [facility] [address] [place], [facility]83 [employer] Counselor: Calin Tapia MD MCV (RBC) [Entitic vol] 93.0 fL Normal 82.6-102.9 [facility] Comment on above: Performed By: #### T SHX #### [facility] [address] [place] [address] Dr[address] [place], [facility]83 Branch [employer] Counselor: Calin Tapia MD Monocytes (Bld) [#/Vol] 0.62 10*3/uL Normal 0.10-1.20 [facility] Comment on above: Performed By: #### T SHX #### [facility] [address] [place] [address] Branch Credit Counselor: Calin Tapia MD Monocytes/100 WBC (Bld) 6 % Normal 3-12 [facility] Comment on above: Performed By: #### T SHX #### [facility] [address] [place], [facility]83 [employer] Counselor: Calin Tapia MD Neutrophil (Seg) 53 % Normal 36-65 [facility] Comment on above: Performed By: #### T SHX #### [facility] [address] [place], [place] [id number] [employer] Counselor: Calin Tapia MD NRBC Automated 0.0 per 100 WBC Normal 0.0 [facility] Comment on above: Performed By: #### T SHX #### [facility] [address] [place], [place] [id number] [employer] Counselor: Calin Tapia MD Platelet mean volume (Bld) [Entitic vol] 9.9 fL Normal 8.1-13.5 [facility] Comment on above: Performed By: #### T SHX #### [facility] [address] [place], [place] [id number] [employer] Counselor: Calin Tapia MD Platelets (Bld) [#/Vol] 278 10*3/uL Normal 138-453 [facility] Comment on above: Performed By: #### T SHX #### [facility] [address] [place], [place] [id number] [employer] Counselor: Calin Tapia MD RBC (Bld) [#/Vol] 4.00 10*6/uL Normal 3.95-5.11 [facility] Comment on above: Performed By: #### T SHX #### [facility] [address] [place], [place] [id number] [employer] Counselor: Calin Tapia MD WBC (Bld) [#/Vol] 9.8 10*3/uL Normal 3.5-11.3 [facility] Comment on above: Performed By: #### T SHX #### [facility] [address] [place] [address] Branch Credit Counselor: Calin Tapia MD Comp Metabolic Profon 2023 Albumin [Mass/Vol] 4.6 g/dL Normal 3.5-5.2 [facility] Comment on above: Performed By: #### U AMIC, UHCG #### [facility] [address] [place] [address] Branch Credit Counselor: Calin Tapia MD Albumin/Glob Ratio 2.0 Normal 1.0-2.5 [facility] Comment on above: Performed By: #### U AMIC, UHCG #### [facility] [address] [place], [place] [id number] [employer] Counselor: Calin Tapia MD Alkaline Phos 55 U/L Normal 35-104 [facility] Comment on above: Performed By: #### U AMIC, UHCG #### [facility] [address] [place], [place] [id number] [employer] Counselor: Calin Tapia MD ALT [Catalytic activity/Vol] 18 U/L Normal 10-35 [facility] Comment on above: Performed By: #### U AMIC, UHCG #### [facility] [address] [place], [place] [id number] [employer] Counselor: Calin Tapia MD Anion gap [Moles/Vol] 10 mmol/L Normal 9-16 [facility] Comment on above: Performed By: #### U AMIC, UHCG #### [facility] [address] [place], [place] [id number] [employer] Counselor: Calin Tapia MD AST [Catalytic activity/Vol] 22 U/L Normal 10-35 [facility] Comment on above: Performed By: #### U AMIC, UHCG #### [facility] [address] [place] [address] Branch Credit Counselor: Calin Tapia MD Bilirubin [Mass/Vol] 0.3 mg/dL Normal 0.00-1.20 [facility] Comment on above: Performed By: #### U AMIC, UHCG #### [facility] [address] [place], [place] [id number] [employer] Counselor: Calin Tapia MD BUN/CRE Ratio 13 Normal 9-20 [facility] Comment on above: Performed By: #### U AMIC, CG #### [facility] [address] [place], [place] [id number] [employer] Counselor: Calin Tapia MD Calcium [Mass/Vol] 9.1 mg/dL Normal 8.6-10.4 [facility] Comment on above: Performed By: #### U AMIWalker CG #### [facility] [address] [place], [place] [id number] Branch [employer] Counselor: Calin Tapia MD Chloride [Moles/Vol] 104 mmol/L Normal 98-107 [facility] Comment on above: Performed By: #### U AMIWalker [facility] #### [facility] [address] [place], [place] [id number] [employer] Counselor: Calin Tapia MD CO2 [Moles/Vol] 22 mmol/L Normal 20-31 [facility] Comment on above: Performed By: #### U AMIC, [facility] #### [facility] [address] [place], [place] [address] [employer] Counselor: Calin Tapia MD Creatinine [Mass/Vol] 0.8 mg/dL Normal 0.50-0.90 [facility] Comment on above: Performed By: #### U AMIC, CG #### [facility] [address] [place] [address] Branch Credit Counselor: Calin Tapia MD GFR/1.73 sq M.predicted among non-blacks MDRD (S/P/Bld) [Vol rate/Area] mL/min/{1.73_m2} Normal >60 [facility] Comment on above: Result Comment: These results are not intended for use in patients <18 years of age. eGFR results are calculated without a race factor using the 2020 CKD-EPI equation. Careful clinical correlation is recommended, particularly when comparing to results calculated using previous equations. The CKD-EPI equation is less accurate in patients with extremes of muscle mass, extra-renal metabolism of creatine, excessive creatine ingestion, or following therapy that affects renal tubular secretion. Performed By: #### U JOLLY CG #### [facility] [address] [place] [address] Branch [employer] Counselor: Calin Tapia MD Glucose [Mass/Vol] 89 mg/dL Normal 74-99 [facility] Comment on above: Performed By: #### U JOLLY [facility] #### [facility] [address] [place] [address] Branch Credit Counselor: Calin Tapia MD Potassium [Moles/Vol] 3.7 mmol/L Normal 3.7-5.3 [facility] Comment on above: Result Comment: Spec imen hemolysis has exceeded the interference as defined by [employer]. Value may be falsely increased. Suggest recollection if clinically indicated. Performed By: #### U AMIWalker [facility] #### [facility] [address] [place] [address] [place] [address] Branch [employer] Counselor: Calin Tapia MD Protein [Mass/Vol] 6.9 g/dL Normal 6.6-8.7 [facility] Comment on above: Performed By: #### U JOLLY [facility] #### [facility] [address] [place] [address] Branch Credit Counselor: Calin Tapia MD Sodium [Moles/Vol] 136 mmol/L Normal 136-145 [facility] Comment on above: Performed By: #### U AMIWalker [facility] #### [facility] [address] [place] [address] Branch [employer] Counselor: Calin Tapia MD Urea nitrogen [Mass/Vol] 10 mg/dL Normal 6-20 [facility] Comment on above: Performed By: #### U AMIC UHCG #### [facility] [address] [place] [address] Branch Credit Counselor: Calin Tapia MD [facility] Metabolic Pane [facility] 05-02-2024 Albumin [Mass/Vol] 4.6 g/dL 3.5 - 5.2 g/dL [facility] Albumin/Globulin [Mass ratio] 2.0 {ratio} 1.0 - 2.5 [facility] ALP [Catalytic activity/Vol] 55 U/L 35 - 104 U/L [facility] ALT [Catalytic activity/Vol] 18 U/L 10 - 35 U/L [facility] Anion gap [Moles/Vol] 10 mmol/L 9 - 16 mmol/L [facility] AST [Catalytic activity/Vol] 22 U/L 10 - 35 U/L [facility] Bilirubin [Mass/Vol] 0.3 mg/dL 0.00 - 1.20 mg/dL [facility] Calcium [Mass/Vol] 9.1 mg/dL 8.6 - 10. 4 mg/dL [facility] Chloride [Moles/Vol] 104 mmol/L 98 - 10 7 mmol/L [facility] CO2 [Moles/Vol] 22 mmol/L 20 - 31 mmol/L [facility] Creatinine [Mass/Vol] 0.8 mg/dL 0.50 - 0.90 mg/dL [facility] Est, Glom Filt Rate - [facility] Comment on above: These results are not intended for use in patients <18 years of age. eGFR results are calculated without a race factor using the 2020 CKD-EPI equation. Careful clinical correlation is recommended, particularly when comparing to results calculated using previous equations. The CKD-EPI equation is less accurate in patients with extremes of muscle mass, extra-renal metabolism of creatine, excessive creatine ingestion, or following therapy that affects renal tubular secretion. Glucose [Mass/Vol] 89 mg/dL 74 - 99 mg/dL [facility] Potassium [Moles/Vol] 3.7 mmol/L 3.7 - 5.3 mmol/L [facility] Comment on above: Specimen hemolysis h as exceeded the interference as defined by Christiano. Value may be falsely increased. Suggest recollection if clinically indicated. Protein [Mass/Vol] 6.9 g/dL 6.6 - 8.7 g/dL [facility] Sodium [Moles/Vol] 136 mmol/L 136 - 145 mmol/L [facility] Urea nitrogen [Mass/Vol] 10 mg/dL 6 - 20 mg/dL [facility] Urea nitrogen/Creatinine [Mass ratio] 13 mg/mg 9 - 20 [facility] Lipaseon 05-02-2024 Lipase [Catalytic activity/Vol] 22 U/L 13 - 60 U/L [facility] Lipase [Catalytic activity/Vol] 22 U/L Normal 13-60 [facility] Comment on above: Performed By: #### U [facility] #### [facility] [address] [place] [address] Branch Credit Counselor: Calin Tapia MD No Panel Informationon 05-02 [facility] Troponinon 05-02-2024 Troponin I.cardiac High sensitivity method [Mass/Vol] ng/L 0 - 14 ng/L [facility] Comment on above: High Sensitivity Tro ponin values cannot be compared with other Troponin methodologies. Troponin, High Sens <6 Normal 0-14 [facility] Comment on above: Result Comment: High Sensitivity Troponin values cannot be compared with other Troponin methodologies. Performed By: #### U [facility] #### [facility] [address] [address] Branch Credit Counselor: Calin Tapia MD Portable XR Chest AP single viewon 05-01-2024 No acute cardiopulmonary abnormality. [facility] RIS CONSOLIDATED EXAMINATION: ONE XRAY VIEW OF THE CHEST 05/01/2024 10:16 pm COMPARISON: 03/18/2024 HISTORY: ORDERING SYSTEM PROVIDED HISTORY: CP TECHNOLOGIST PROVIDED HISTORY: CP FINDINGS: The heart is normal in size. There is no focal pulmonary consolidation. There is no pleural effusion or pneumothorax. The visualized bones are unremarkable. [facility] RIS CONSOLID[facility] Saran Naik MD - 05/01/2024 EXAMINATION: ONE XRAY VIEW OF THE CHEST 05/01/2024 10:16 pm COMPARISON: 03/18/2024 HISTORY: ORDERING SYSTEM PROVIDED HISTORY: CP TECHNOLOGIST PROVIDED HISTORY: CP FINDINGS: The heart is normal in size. There is no focal pulmonary consolidation. There is no pleural effusion or pneumothorax. The visualized bones are unremarkable. IMPRESSION: No acute cardiopulmonary abnormality. [facility] Radiology Study observation (narrative) [facility] Portable XR Chest AP single viewOrdered By: Saran Naik on 05-01-2024 [facility] Work Phone: XR CHEST PORTABLEon 05-01-20 XR CHEST PORTABLE EXAMINATION: ONE XRAY VIEW OF THE CHEST 05/01/2024 10:16 pm COMPARISON: 03/18/2024 HISTORY: ORDERING SYSTEM PROVIDED HISTORY: CP TECHNOLOGIST PROVIDED HISTORY: CP FINDINGS: The heart is normal in size. There is no focal pulmonary consolidation. There is no pleural effusion or pneumothorax. The visualized bones are unremarkable. IMPRESSION: No acute cardiopulmonary abnormality. Interpreted by: Saran Naik MD Signed by: Saran Naik MD 05/01/24 Final result Normal [facility] CMPon 04-16-2024 Albumin [Mass/Vol] 4.3 g/dL 3.5 - 5.2 g/dL [facility] Albumin/Globulin [Mass ratio] 2.0 {ratio} 1.0 - 2.5 [facility] ALP [Catalytic activity/Vol] 53 U/L 35 - 104 U/L [facility] ALT [Catalytic activity/Vol] 15 U/L 10 - 35 U/L [facility] Anion gap [Moles/Vol] 9 mmol/L 9 - 16 mmol/L [facility] AST [Catalytic activity/Vol] 20 U/L 10 - 35 U/L [facility] Bilirubin [Mass/Vol] 0.3 mg/dL 0.00 - 1.20 mg/dL [facility] Calcium [Mass/Vol] 9.2 mg/dL 8.6 - 10. 4 mg/dL [facility] Chloride [Moles/Vol] 106 mmol/L 98 - 10 7 mmol/L [facility] CO2 [Moles/Vol] 23 mmol/L 20 - 31 mmol/L [facility] Creatinine [Mass/Vol] 0.7 mg/dL 0.50 - 0.90 mg/dL [facility] Hansel Aiken - [facility] Comment on above: These results are not intended for use in patients <18 years of age. eGFR results are calculated without a race factor using the 2020 CKD-EPI equation. Careful clinical correlation is recommended, particularly when comparing to results calculated using previous equations. The CKD-EPI equation is less accurate in patients with extremes of muscle mass, extra-renal metabolism of creatine, excessive creatine ingestion, or following therapy that affects renal tubular secretion. Glucose [Mass/Vol] 89 mg/dL 74 - 99 mg/dL [facility] Interpretation and review of laboratory results Abnormal [facility] Potassium [Moles/Vol] 3.7 mmol/L 3.7 - 5.3 mmol/L [facility] Protein [Mass/Vol] 6.4 g/dL Low 6.6 - 8.7 g/dL [facility] Sodium [Moles/Vol] 138 mmol/L 136 - 145 mmol/L [facility] Urea nitrogen [Mass/Vol] 10 mg/dL 6 - 20 mg/dL [facility] Urea nitrogen/Creatinine [Mass ratio] 14 mg/mg 9 - 20 [facility] Comp Metabolic Profon 2023 Albumin [Mass/Vol] 4.3 g/dL Normal 3.5-5.2 [facility] Comment on above: Performed By: #### U [facility] #### [facility] [address] [place] [address] Branch Credit Counselor: Calin Tapia MD Albumin/Glob Ratio 2.0 Normal 1.0-2.5 [facility] Comment on above: Performed By: #### U [facility] #### [facility] [address] [place] [address] Branch Credit Counselor: Calin Tapia MD Alkaline Phos 53 U/L Normal 35-104 [facility] Comment on above: Performed By: #### U AMIC, UHCG #### [facility] [address] [place], [place] [id number] Branch Credit Counselor: Calin Tapia MD ALT [Catalytic activity/Vol] 15 U/L Normal [facility] Comment on above: Performed By: #### U AMIC, UHCG #### [facility] [address] [place], [place] [id number] Branch Credit Counselor: Calin Tapia MD Anion gap [Moles/Vol] 9 mmol/L Normal -16 [facility] Comment on above: Performed By: #### U AMIC, UHCG #### [facility] [address] [place], [place] [id number] Branch Credit Counselor: Calin Tapia MD AST [Catalytic activity/Vol] 20 U/L Normal [facility] Comment on above: Performed By: #### U AMIC, UHCG #### [facility] [address] [place], [place] [id number] Branch Credit Counselor: Calin Tapia MD Bilirubin [Mass/Vol] 0.3 mg/dL Normal 0.00-1.20 [facility] Comment on above: Performed By: #### U AMIC, UHCG #### [facility] [address] [place], [place] [id number] Branch Credit Counselor: Calin Tapia MD BUN/CRE Ratio 14 Normal 9-20 [facility] Comment on above: Performed By: #### U AMIC, UHCG #### [facility] [address] [place] [address] Branch Credit Counselor: Calin Tapia MD Calcium [Mass/Vol] 9.2 mg/dL Normal 8.6-10.4 [facility] Comment on above: Performed By: #### U AMIC, UHCG #### [facility] [address] [place], [place] [id number] Branch Credit Counselor: Calin Tapia MD Chloride [Moles/Vol] 106 mmol/L Normal 98-107 [facility] Comment on above: Performed By: #### U AMIWalker [facility] #### [facility] [address] [place], [place] [id number] Branch Credit Counselor: Calin Tapia MD CO2 [Moles/Vol] 23 mmol/L Normal 20-31 [facility] Comment on above: Performed By: #### U AMIWalker [facility] #### [facility] [address] [place] [id number] Branch Credit Counselor: Calin Tapia MD Creatinine [Mass/Vol] 0.7 mg/dL Normal 0.50-0.90 [facility] Comment on above: Performed By: #### Jacklyn AZEVEDO [facility] #### [facility] [address] [place] [address] Branch Credit Counselor: Calin Tapia MD GFR/1.73 sq M.predicted among non-blacks MDRD (S/P/Bld) [Vol rate/Area] mL/min/{1.73_m2} Normal >60 [facility] Comment on above: Result Comment: These results are not intended for use in patients <18 years of age. eGFR results are calculated without a race factor using the 2020 CKD-EPI equation. Careful clinical correlation is recommended, particularly when comparing to results calculated using previous equations. The CKD-EPI equation is less accurate in patients with extremes of muscle mass, extra-renal metabolism of creatine, excessive creatine ingestion, or following therapy that affects renal tubular secretion. Performed By: #### U [facility] #### [facility] [address] [place] [address] Branch Credit Counselor: Calin Tapia MD Glucose [Mass/Vol] 89 mg/dL Normal 74-99 [facility] Comment on above: Performed By: #### U [facility] #### [facility] [address] [place] [id number] Branch Credit Counselor: Calin Tapia MD Potassium [Moles/Vol] 3.7 mmol/L Normal 3.7-5.3 [facility] Comment on above: Performed By: #### U AMIC, [facility] #### [facility] [address] [place] [address] Dr[address] [place], [place] [address] Branch Credit Counselor: Calin Tapia MD Protein [Mass/Vol] 6.4 g/dL Low 6.6-8.7 [facility] Comment on above: Performed By: #### U AMIC CG #### [facility] [address] [place], [place] [id number] Branch Credit Counselor: Calin Tapia MD Sodium [Moles/Vol] 138 mmol/L Normal 136-145 [facility] Comment on above: Performed By: #### U AMIWalker [facility] #### [facility] [address] [place], [place] [id number] Branch Credit Counselor: Calin Tapia MD Urea nitrogen [Mass/Vol] 10 mg/dL Normal 6-20 [facility] Comment on above: Performed By: #### U AMIC, [facility] #### [facility] [address] [place], [place] [phone] Branch Credit Counselor: Calin Tapia MD Lactic Acidon 04-16-2024 Lactate (BldV) [Moles/Vol] 0.6 mmol/L 0.5 - 2.2 mmol/L [facility] Lactate [Moles/Vol] 0.6 mmol/L Normal 0.5-2.2 [facility] Comment on above: Performed By: #### U AMIC, CG #### [facility] [address] [place] [address] Branch Credit Counselor: Calin Tapia MD Lipaseon 04-16-2024 Lipase [Catalytic activity/Vol] 23 U/L 13 - 60 U/L [facility] Lipase [Catalytic activity/Vol] 23 U/L Normal 13-60 [facility] Comment on above: Performed By: #### U AMIC, UHCG #### [facility] [address] [address] Branch Credit Counselor: Calin Tapia MD Microscopic Urinalysison Bacteria LM Ql (Urine sed) 1+ Abnormal None [facility] Epithelial cells LM.HPF (Urine sed) [#/Area] 0 TO 2 [facility] Interpretation and review of laboratory results Abnormal [facility] Mucus Ql (Urine sed) 1+ Abnormal None [facility] RBC LM.HPF (Urine sed) [#/Area] None [facility] WBC LM.HPF (Urine sed) [#/Area] 2 TO 5 [facility] No Panel Informationon 04-16 [facility] UA w/Reflex Cultureon 2023 Bilirubin, SemiQt,Ur Negative Normal NEG [facility] Comment on above: Performed By: #### U MICAO, UAX #### [facility] [address] [place] [id number] Branch Credit Counselor: Calin Tapia MD Blood, Urine Negative Normal NEG [facility] Comment on above: Performed By: #### U MICAO, UAX #### [facility] [address] [place] [address] Branch Credit Counselor: Calin Tapia MD Clarity (U) Clear Normal CLEAR [facility] Comment on above: Performed By: #### U MICAO, UAX #### [facility] [address] [address] Branch Credit Counselor: Calin Tapia MD Color (U) Yellow Normal YEL [facility] Comment on above: Performed By: #### U MICAO, UAX #### [facility] [address] [address] Branch Credit Counselor: Calin Tapia MD Glucose Ql (U) Negative Normal NEG [facility] Comment on above: Performed By: #### U MICAO, UAX #### [facility] [address] [place] [address] Dr[place], [place] [phone] Branch Credit Counselor: Calin Tapia MD Ketones Ql (U) Negative Normal NEG [facility] Comment on above: Performed By: #### U MICAO, UAX #### [facility] [address] [place] [address] Dr[place], [place] [id number] Branch Credit Counselor: Calin Tapia MD Leukocyte esterase Test strip Ql (U) Negative Normal NEG [facility] Comment on above: Performed By: #### U MICAO, UAX #### [address] [place], [place] [id number] Branch Credit Counselor: Calin Tapia MD Nitrite,Ur Negative Normal NEG [facility] Comment on above: Performed By: #### U MICAO, UAX #### [facility] [address] [place] [address] Dr. [place], [place] [id number] Branch Credit Counselor: Calin Tapia MD PH,Ur 6.0 Normal 5.0-9.0 [facility] Comment on above: Performed By: #### U MICAO, UAX #### [facility] [address] [place] [address] Dr[place], [place] [id number] Branch Credit Counselor: Calin Tapia MD Protein Ql (U) Negative Normal NEG [facility] Comment on above: Performed By: #### U MICAO, UAX #### [facility] [address] [place] [address] Dr[place], [place] [phone] Branch Credit Counselor: Calin Tapia MD Spec. Wellington,Ur 1.025 High 1.010-1.020 [facility] Comment on above: Performed By: #### U MICAO, UAX #### [facility] [address] [place] [address] [place] [address] Branch Credit Counselor: Calin Tapia MD Urobilinogen,Ur Normal Normal 0.0-1.0 [facility] Comment on above: Performed By: #### U DA, UAX #### [facility] [address] [place] [address] Branch Credit Counselor: Calin Tapia MD Urinalysis with Reflex to Cu ltureon 04-16-2024 Bilirubin Ql (U) Negative NEGATIVE [facility] Clarity (U) Clear Clear [facility] Color (U) Yellow Yellow [facility] Glucose Test strip (U) [Mass/Vol] Negative NEGATIVE mg/dL [facility] Hemoglobin Auto test strip Ql (U) Negative NEGATIVE [facility] Interpretation and review of laboratory results Abnormal [facility] Ketones (U) [Mass/Vol] Negative NEGATIVE mg/dL [facility] Leukocyte esterase Test strip Ql (U) Negative NEGATIVE [facility] Nitrite Ql (U) Negative NEGATIVE [facility] pH (U) 6.0 [pH] 5.0 - 9.0 [facility] Protein (U) [Mass/Vol] Negative NEGATIVE mg/dL [facility] Specific gravity (U) [Rel density] 1.025 High 1.010 - 1.020 [facility] Urobilinogen Qn (U) Normal 0.0 - 1. 0 EU/dL [facility] Urinalysis,Microon 4 Bacteria 1+ Abnormal NONE [facility] Comment on above: Performed By: #### U DA UAX #### [facility] [address] [place] [address] Branch Credit Counselor: Calin Tapia MD Epithelial cells LM Ql (Urine sed) 0 TO 2 Normal 0-25 [facility] Comment on above: Performed By: #### U KATHERINEO, UAX #### [facility] [address] [place] [address] Branch Credit Counselor: Calin Tapia MD Mucus Strands 1+ Abnormal NONE [facility] Comment on above: Performed By: #### U DA, UAX #### [facility] [address] [place] [address] Branch Credit Counselor: Calin Tapia MD Urine RBC's None Normal 0-2 [facility] Comment on above: Performed By: #### U DA, UAX #### [facility] [address] [place] [address] Branch Credit Counselor: Calin Tapia MD Urine WBC's 2 TO 5 Normal 0-5 [facility] Comment on above: Performed By: #### Jacklyn ROBERSON, UAX #### [facility] [address] [place] [address] Branch Credit Counselor: Calin Tapia MD CBC with Diffon 04-15-2024 Basophils (Bld) [#/Vol] 0.07 10*3/uL [facility] Basophils/100 WBC (Bld) 1 % 0 - 2 % [facility] Eosinophils (Bld) [#/Vol] 0.39 10*3/uL [facility] Eosinophils/100 WBC (Bld) 5 % High 1 - 4 % [facility] Erythrocyte distribution width (RBC) [Ratio] 12.0 % 11.8 - 14.4 % [facility] Hematocrit (Bld) [Volume fraction] 35.4 % Low 36.3 - 47.1 % [facility] Hemoglobin (Bld) [Mass/Vol] 12.7 g/dL 11.9 - 15.1 g/dL [facility] Immature granulocytes (Bld) [#/Vol] [facility] Immature granulocytes/100 WBC (Bld) 0 % 0 [facility] Interpretation and review of laboratory results Abnormal [facility] Lymphocytes/100 WBC (Bld) 37 % 24 - 43 % [facility] Lymphocytes/100 WBC (Bld) 2.69 % [facility] MCH (RBC) [Entitic mass] 33.9 pg High 25.2 - 33.5 pg [facility] MCHC (RBC) [Mass/Vol] 35.9 g/dL High 28.4 - 34.8 g/dL [facility] MCV (RBC) [Entitic vol] 94.4 fL 82.6 - 102.9 fL [facility] Monocytes/100 WBC (Bld) 6 % 3 - 12 % [facility] Monocytes/100 WBC (Bld) 0.44 % [facility] Neutrophils/100 WBC (Bld) 51 % 36 - 65 % [facility] Nucleated RBC/100 WBC (Bld) [Ratio] 0.0 % 0.0 per 100 WBC [facility] Platelet mean volume (Bld) [Entitic vol] 9.2 fL 8.1 - 13.5 fL [facility] Platelets (Bld) [#/Vol] 245 10*3/uL [facility] RBC (Bld) [#/Vol] 3.75 10*6/uL Low 3.95 - 5.1 1 m/uL [facility] Segmented neutrophils/100 WBC (Bld) 3.69 % [facility] WBC other (Bld) [#/Vol] 7.3 [facility] Abs. Basophil 0.07 k/uL Normal 0.00-0.20 [facility] Comment on above: Performed By: #### U [facility] #### [address] [place] [address] Branch Credit Counselor: Calin Tapia MD Abs.Imm.Granulocyte <0.03 Normal 0.00-0.30 [facility] Comment on above: Performed By: #### U [facility] #### [address] [place] [address] Branch Credit Counselor: Calin Tapia MD Abs.Neutrophil (Seg) 3.69 k/uL Normal 1.50-8.10 [facility] Comment on above: Performed By: #### U [facility] #### [facility] [address] [place] [address] Branch Credit Counselor: Calin Tapia MD Basophils/100 WBC (Bld) 1 % Normal 0-2 [facility] Comment on above: Performed By: #### U AMIC, UHCG #### [facility] [address] [place] [address] [place], [place] [id number] Branch Credit Counselor: Calin Tapia MD Eosinophils (Bld) [#/Vol] 0.39 10*3/uL Normal 0.00-0.44 [facility] Comment on above: Performed By: #### U AMIC, UHCG #### [address] [place] [address] Branch Credit Counselor: Calin Tapia MD Eosinophils/100 WBC (Bld) 5 % High 1-4 [facility] Comment on above: Performed By: #### U AMIC, UHCG #### [address] [place], [facility] Branch Credit Counselor: Calin Tapia MD Erythrocyte distribution width (RBC) [Ratio] 12.0 % Normal 11.8-14.4 [facility] Comment on above: Performed By: #### U AMIC, UHCG #### [address] [place] [id number] Branch Credit Counselor: Calin Tapia MD Hematocrit (Bld) [Volume fraction] 35.4 % Low 36.3-47.1 [facility] Comment on above: Performed By: #### U AMIC, UHCG #### [address] [place] [address] Branch Credit Counselor: Calin Tapia MD Hemoglobin (Bld) [Mass/Vol] 12.7 g/dL Normal 11.9-15.1 [facility] Comment on above: Performed By: #### U AMIC, UHCG #### [address] [place] [facility] Branch Credit Counselor: Calin Tapia MD Immature granulocytes/100 WBC (Bld) 0 % Normal 0 [facility] Comment on above: Performed By: #### U AMIWalker CG #### [facility] [address] [place], [facility] Branch Credit Counselor: Calin Tapia MD Lymphocytes (Bld) [#/Vol] 2.69 10*3/uL Normal 1.10-3.70 [facility] Comment on above: Performed By: #### U AMIWalker CG #### [facility] [address] [place], [facility] Branch Credit Counselor: Calin Tapia MD Lymphocytes/100 WBC (Bld) 37 % Normal 24-43 [facility] Comment on above: Performed By: #### U [facility] #### [facility] [address] [place], [facility] Branch Credit Counselor: Calin Tapia MD MCH (RBC) [Entitic mass] 33.9 pg High 25.2-33.5 [facility] Comment on above: Performed By: #### U AMIWalker CG #### [address] [place], [facility] Branch Credit Counselor: Calin Tapia MD MCHC (RBC) [Mass/Vol] 35.9 g/dL High 28.4-34.8 [facility] Comment on above: Performed By: #### U AMIC CG #### [facility] [address] [place], [facility] Branch Credit Counselor: Calin Tapia MD MCV (RBC) [Entitic vol] 94.4 fL Normal 82.6-102.9 [facility] [facility] Comment on above: Performed By: #### U AMIC CG #### [facility] [address] [place], [facility] Branch Credit Counselor: Calin Tapia MD Monocytes (Bld) [#/Vol] 0.44 10*3/uL Normal 0.10-1.20 [facility] Comment on above: Performed By: #### U AMIC, CG #### [facility] [address] [place], [place] [id number] Branch Credit Counselor: Calin Tapia MD Monocytes/100 WBC (Bld) 6 % Normal 3-12 [facility] Comment on above: Performed By: #### U AMIC, CG #### [facility] [address] [place], [place] [id number] Branch Credit Counselor: Calin Tapia MD Neutrophil (Seg) 51 % Normal 36-65 [facility] Comment on above: Performed By: #### U AMIC, CG #### [facility] [address] [place], [facility] Branch Credit Counselor: Calin Tapia MD NRBC Automated 0.0 per 100 WBC Normal 0.0 [facility] Comment on above: Performed By: #### U AMIC [facility] #### [facility] [address] [place], [place] [id number] Branch Credit Counselor: Calin Tapia MD Platelet mean volume (Bld) [Entitic vol] 9.2 fL Normal 8.1-13.5 [facility] Comment on above: Performed By: #### U AMIC, CG #### [facility] [address] [place], [place] [id number] Branch Credit Counselor: Calin Tapia MD Platelets (Bld) [#/Vol] 245 10*3/uL Normal 138-453 [facility] Comment on above: Performed By: #### U AMIC, CG #### [facility] [address] [place], [place] [address]3 Branch Credit Counselor: Calin Tapia MD RBC (Bld) [#/Vol] 3.75 10*6/uL Low 3.95-5.11 [facility] Comment on above: Performed By: #### U AMIC, CG #### [facility] [address] [place], [place] 119[address]83 Branch Credit Counselor: Calin Tapia MD WBC (Bld) [#/Vol] 7.3 10*3/uL Normal 3.5-11.3 [facility] Comment on above: Performed By: #### U AMIC, UHCG #### [facility] [address] [place], [place] [id number] Branch Credit Counselor: Calin Tapia MD HCG, ,Urineon 04-15 Beta HCG ( test) Ql (U) Negative Normal NEG [facility] Comment on above: Result Comment: Spec imens with hCG levels near the threshold of the test (25 mIU/mL) may give a negative or indeterminate result. In such cases, another test should be performed with a new specimen in 48-72 hours. If early is suspected clinically in this setting, correlation with quantitative serum b-hCG level is suggested. [facility] has confirmed the use of plasma for this test. This has not been cleared or approved by the U.S. Food and Drug Administration. The FDA has determined that such clearance is not necessary. Performed By: #### U MICAO, UAX #### [facility] [address] [place], [place] 106[address]83 Branch Credit Counselor: Calin Tapia MD , Urineon HCG ( test) Ql (U) Negative NEGATIVE [facility] Comment on above: Specimens with hCG l evels near the threshold of the test (25 mIU/mL) may give a negative or indeterminate result. In such cases, another test should be performed with a new specimen in 48-72 hours. If early is suspected clinically in this setting, correlation with quantitative serum b-hCG level is suggested. [employer] has confirmed the use of plasma for this test. This has not been cleared or approved by the U.S. Food and Drug Administration. The FDA has determined that such clearance is not necessary. [facility] Cult,Urineon 03-30-2024 Cult,Urine Specimen Description .CLEAN CATCH URINE Special Requests Site: Urine Culture NO SIGNIFICANT GROWTH Report Status FINAL 03/30/2024 Normal [facility] Comment on above: Performed By: #### U AMIC, UHCG #### [facility] [address] [place] [address] Branch Credit Counselor: Calin Tapia MD Urinalysis w/ Microon 2023 Bacteria TRACE Abnormal NONE [facility] Comment on above: Performed By: #### U AMIC, UHCG #### [facility] [address] [place] [address] Branch Credit Counselor: Calin Tapia MD Bilirubin, SemiQt,Ur Negative Normal NEG [facility] Comment on above: Performed By: #### U AMIC, UHCG #### [facility] [address] [place], [place] [id number] Branch Credit Counselor: Calin aTpia MD Blood, Urine Negative Normal NEG [facility] Comment on above: Performed By: #### U AMIC, UHCG #### [facility] [address] [place], [place] [id number] Branch Credit Counselor: Calin Tapia MD Clarity (U) Clear Normal CLEAR [facility] Comment on above: Performed By: #### U AMIC, UHCG #### [facility] [address] [place], [place] [address]83 Branch Credit Counselor: Calin Tapia MD Color (U) Yellow Normal YEL [facility] Comment on above: Performed By: #### U AMIC, UHCG #### [facility] [address] [place] [address] Branch Credit Counselor: Calin Tapia MD Epithelial cells LM Ql (Urine sed) 0 TO 2 Normal 0-25 [facility] Comment on above: Performed By: #### U AMIC, UHCG #### [facility] [address] [place] [address] Dr[place], [place] [id number] Branch Credit Counselor: Calin Tapia MD Glucose Ql (U) Negative Normal NEG [facility] Comment on above: Performed By: #### U AMIC, UHCG #### [facility] [address] [place] [address] Dr[place], [place] [id number] Branch Credit Counselor: Calin Tapia MD Ketones Ql (U) Negative Normal NEG [facility] Comment on above: Performed By: #### U AMIC, UHCG #### [facility] [address] [place] [address] Dr[place], [place] [id number] Branch Credit Counselor: Calin Tapia MD Leukocyte esterase Test strip Ql (U) Negative Normal NEG [facility] Comment on above: Performed By: #### U AMIC, UHCG #### [facility] [address] [place] [address] [place] [address] Branch Credit Counselor: Calin Tapia MD Nitrite,Ur Negative Normal NEG [facility] Comment on above: Performed By: #### U AMIC, UHCG #### [facility] [address] [place] [address] [place] [address] Branch Credit Counselor: Calin Tapia MD PH,Ur 6.0 Normal 5.0-9.0 [facility] Comment on above: Performed By: #### U AMIC, UHCG #### [facility] [address] [place] [address] [place] [address] Branch Credit Counselor: Calin Tapia MD Protein Ql (U) Negative Normal NEG [facility] Comment on above: Performed By: #### U AMIC, UHCG #### [facility] [address] [place] [address] Dr[place], [place] 1338083 Branch Credit Counselor: Calin Tapia MD Spec. [place],Ur 1.010 Normal 1.010-1.020 [facility] Comment on above: Performed By: #### U AMI, [facility] #### [facility] [address] [place] [address] Branch Credit Counselor: Calin Tapia MD Urine RBC's None Normal 0-2 [facility] Comment on above: Performed By: #### U AMI, [facility] #### [facility] [address] [place], [facility] Branch Credit Counselor: Calin Tapia MD Urine WBC's None Normal 0-5 [facility] Comment on above: Performed By: #### U [facility], [facility] #### [facility] [address] [place], [facility] Branch Credit Counselor: Calin Taipa MD Urobilinogen,Ur Normal Normal 0.0-1.0 [facility] Comment on above: Performed By: #### U [facility], [facility] #### [facility] [address] [place] [address] Branch Credit Counselor: Calin Tapia MD Urinalysis with Microscopico n 03-29-2024 Bacteria LM Ql (Urine sed) TRACE Abnormal None [facility] Bilirubin Ql (U) Negative NEGATIVE [facility] Clarity (U) Clear Clear [facility] Color (U) Yellow Yellow [facility] Epithelial cells LM.HPF (Urine sed) [#/Area] 0 TO 2 [facility] Glucose Test strip (U) [Mass/Vol] Negative NEGATIVE mg/dL [facility] Hemoglobin Auto test strip Ql (U) Negative NEGATIVE [facility] Interpretation and review of laboratory results Abnormal [facility] Ketones (U) [Mass/Vol] Negative NEGATIVE mg/dL [facility] Leukocyte esterase Test strip Ql (U) Negative NEGATIVE [facility] Nitrite Ql (U) Negative NEGATIVE [facility] pH (U) 6.0 [pH] 5.0 - 9.0 [facility] Protein (U) [Mass/Vol] Negative NEGATIVE mg/dL [facility] RBC LM.HPF (Urine sed) [#/Area] None [facility] Specific gravity (U) [Rel density] 1.010 1.010 - 1.020 [facility] Urobilinogen Qn (U) Normal 0.0 - 1. 0 EU/dL [facility] WBC LM.HPF (Urine sed) [#/Area] None [facility] CBC with Diffon 03-18-2024 Abs. Basophil 0.06 k/uL Normal 0.00-0.20 [facility] Comment on above: Performed By: #### U KATHERINEO, UAX #### [address] [place] [address] Branch Credit Counselor: Calin Tapia MD Abs.Imm.Granulocyte <0.03 Normal 0.00-0.30 [facility] Comment on above: Performed By: #### U KATHERINEO, UAX #### [address] [place], [facility]83 Branch Credit Counselor: Calin Tapia MD Abs.Neutrophil (Seg) 3.94 k/uL Normal 1.50-8.10 [facility] Comment on above: Performed By: #### U KATHERINEO, UAX #### [address] [place] [address] Branch Credit Counselor: Calin Tapia MD Basophils/100 WBC (Bld) 1 % Normal 0-2 [facility] Comment on above: Performed By: #### U MICAO, UAX #### [address] [place] [address] Branch Credit Counselor: Calin Tapia MD Eosinophils (Bld) [#/Vol] 0.22 10*3/uL Normal 0.00-0.44 [facility] Comment on above: Performed By: #### U KATHERINEO, UAX #### [address] [place], [facility]83 Branch Credit Counselor: Calin Tapia MD Eosinophils/100 WBC (Bld) 4 % Normal 1-4 [facility] Comment on above: Performed By: #### U MICAO, UAX #### [facility] [address] [place], [facility]83 Branch Credit Counselor: Calin Tapia MD Erythrocyte distribution width (RBC) [Ratio] 11.9 % Normal 11.8-14.4 [facility] Comment on above: Performed By: #### U MICAO, UAX #### [facility] [address] [place], [facility]83 Branch Credit Counselor: Calin Tapia MD Hematocrit (Bld) [Volume fraction] 40.1 % Normal 36.3-47.1 [facility] Comment on above: Performed By: #### U KATHERINEO, UAX #### [facility] [address] [place], [facility]83 Branch Credit Counselor: Calin Tapia MD Hemoglobin (Bld) [Mass/Vol] 14.4 g/dL Normal 11.9-15.1 [facility] Comment on above: Performed By: #### U MICAO, UAX #### [address] [place], [facility]83 Branch Credit Counselor: Calin Tapia MD Immature granulocytes/100 WBC (Bld) 0 % Normal 0 [facility] Comment on above: Performed By: #### U MICAO, UAX #### [facility] [address] [place], [facility]83 Branch Credit Counselor: Calin Tapia MD Lymphocytes (Bld) [#/Vol] 1.29 10*3/uL Normal 1.10-3.70 [facility] Comment on above: Performed By: #### U MICAO, UAX #### [facility] [address] [place], [facility] Branch Credit Counselor: Calin Tapia MD Lymphocytes/100 WBC (Bld) 22 % Low 24-43 [facility] Comment on above: Performed By: #### U DA, UAX #### [facility] [address] [place], [place] [id number] Branch Credit Counselor: Calin Tapia MD MCH (RBC) [Entitic mass] 33.6 pg High 25.2-33.5 [facility] Comment on above: Performed By: #### U MICAO, UAX #### [facility] [address] [place], [place] [id number] Branch Credit Counselor: Calin Tapia MD MCHC (RBC) [Mass/Vol] 35.9 g/dL High 28.4-34.8 [facility] Comment on above: Performed By: #### U KATHERINEO, UAX #### [address] [place], [facility]83 Branch Credit Counselor: Calin Tapia MD MCV (RBC) [Entitic vol] 93.7 fL Normal 82.6-102.9 [facility] Comment on above: Performed By: #### U DA, UAX #### [address] [place], [place] 5889383 Branch Credit Counselor: Calin Tapia MD Monocytes (Bld) [#/Vol] 0.41 10*3/uL Normal 0.10-1.20 [facility] Comment on above: Performed By: #### U MICAO, UAX #### [facility] [address] [place], [place] 265[address]83 Branch Credit Counselor: Calin Tapia MD Monocytes/100 WBC (Bld) 7 % Normal 3-12 [facility] Comment on above: Performed By: #### U MICAO, UAX #### [facility] [address] [place], [place] [address]46[address] Branch Credit Counselor: Calin Tapia MD Neutrophil (Seg) 66 % High 36-65 [facility] Comment on above: Performed By: #### U KATHERINEO, UAX #### [facility] [address] [place], [place] [address] Branch Credit Counselor: Calin Tapia MD NRBC Automated 0.0 per 100 WBC Normal 0.0 [facility] Comment on above: Performed By: #### U DA, UAX #### [facility] [address] [place], [facility]83 Branch Credit Counselor: Calin Tapia MD Platelet mean volume (Bld) [Entitic vol] 9.3 fL Normal 8.1-13.5 [facility] Comment on above: Performed By: #### U DA, UAX #### [facility] [address] [place], [facility]83 Branch Credit Counselor: Calin Tapia MD Platelets (Bld) [#/Vol] 248 10*3/uL Normal 138-453 [facility] Comment on above: Performed By: #### U DA, UAX #### [address] [place], [place] 601[address]83 Branch Credit Counselor: Calin Tapia MD RBC (Bld) [#/Vol] 4.28 10*6/uL Normal 3.95-5.11 [facility] Comment on above: Performed By: #### U DA, UAX #### [facility] [address] [place], [facility]83 Branch Credit Counselor: Calin Tapia MD WBC (Bld) [#/Vol] 5.9 10*3/uL Normal 3.5-11.3 [facility] Comment on above: Performed By: #### U KATHERINEO, UAX #### [facility] [address] [place] [address] Branch Credit Counselor: Calin Tapia MD Comp Metabolic Profon 2023 Albumin [Mass/Vol] 4.9 g/dL Normal 3.5-5.2 [facility] Comment on above: Performed By: #### T SHX #### [facility] [address] [place], [place] [address] Branch Credit Counselor: Calin Tapia MD Albumin/Glob Ratio 1.7 Normal 1.0-2.5 [facility] Comment on above: Performed By: #### T SHX #### [facility] [address] [place], [place] 169[address]83 Branch Credit Counselor: Calin Tapia MD Alkaline Phos 62 U/L Normal 35-104 [facility] Comment on above: Performed By: #### T SHX #### [facility] [address] [place], [place] 4245483 Branch Credit Counselor: Calin Tapia MD ALT [Catalytic activity/Vol] 19 U/L Normal 5-33 [facility] Comment on above: Performed By: #### T SHX #### [facility] [address] [place], [place] 5659283 Branch Credit Counselor: Calin Tapia MD Anion gap [Moles/Vol] 10 mmol/L Normal 9-17 [facility] Comment on above: Performed By: #### T SHX #### [facility] [address] [place], [place] 2416[address] Branch Credit Counselor: Calin Tapia MD AST [Catalytic activity/Vol] 19 U/L Normal <32 [facility] Comment on above: Performed By: #### T SHX #### [facility] [address] [place], [place] 4908183 Branch Credit Counselor: Calin Tapia MD Bilirubin [Mass/Vol] 0.6 mg/dL Normal 0.3-1.2 [facility] Comment on above: Performed By: #### T SHX #### [facility] [address] [place], [place] 0074383 Branch Credit Counselor: Calin Tapia MD BUN/CRE Ratio 22 High 9-20 [facility] Comment on above: Performed By: #### T SHX #### [facility] [address] [place] [address] Branch Credit Counselor: Calin Tapia MD Calcium [Mass/Vol] 9.6 mg/dL Normal 8.6-10.4 [facility] Comment on above: Performed By: #### T SHX #### [facility] [address] [place], [place] 6262183 Branch Credit Counselor: Calin Tapia MD Chloride [Moles/Vol] 105 mmol/L Normal 98-107 [facility] Comment on above: Performed By: #### T SHX #### [facility] [address] [place], [place] 3044683 Branch Credit Counselor: Calin Tapia MD CO2 [Moles/Vol] 25 mmol/L Normal 20-31 [facility] Comment on above: Performed By: #### T SHX #### [facility] [address] [place] [address] Branch Credit Counselor: Calin Tapia MD Creatinine [Mass/Vol] 0.6 mg/dL Normal 0.5-0.9 [facility] Comment on above: Performed By: #### T SHX #### [facility] [address] [place], [place] 1785283 Branch Credit Counselor: Calin Tapia MD GFR/1.73 sq M.predicted among non-blacks MDRD (S/P/Bld) [Vol rate/Area] mL/min/{1.73_m2} Normal >60 [facility] Comment on above: Result Comment: These results are not intended for use in patients <18 years of age. eGFR results are calculated without a race factor using the 2020 CKD-EPI equation. Careful clinical correlation is recommended, particularly when comparing to results calculated using previous equations. The CKD-EPI equation is less accurate in patients with extremes of muscle mass, extra-renal metabolism of creatine, excessive creatine ingestion, or following therapy that affects renal tubular secretion. Performed By: #### T SHX #### [facility] [address] [place] [address] Branch Credit Counselor: Calin Tapia MD Glucose [Mass/Vol] 98 mg/dL Normal 70-99 [facility] Comment on above: Performed By: #### T SHX #### [facility] [address] [place] [address] Branch Credit Counselor: Calin Tapia MD Potassium [Moles/Vol] 4.4 mmol/L Normal 3.7-5.3 [facility] Comment on above: Performed By: #### T SHX #### [facility] [address] [place] [address] Branch Credit Counselor: Calin Tapia MD Protein [Mass/Vol] 7.8 g/dL Normal 6.4-8.3 [facility] Comment on above: Performed By: #### T SHX #### [facility] [address] [place] [address] Branch Credit Counselor: Calin Tapia MD Sodium [Moles/Vol] 140 mmol/L Normal 135-144 [facility] Comment on above: Performed By: #### T SHX #### [facility] [address] [place] [address] Branch Credit Counselor: Calin Tapia MD Urea nitrogen [Mass/Vol] 13 mg/dL Normal 6-20 [facility] Comment on above: Performed By: #### T SHX #### [facility] [address] [place] [address] Branch Credit Counselor: Calin Tapia MD D-Dimer Teston 03-18-2024 D-Dimer Test 0.27 ug/mL FEU Normal 0.00-0.59 [facility] Comment on above: Result Comment: When combined with a low clinical probability, a D dimer value of <0.50 ug/mL FEU is considered negative for DVT and PE (negative predictive value of 98%, sensitivity of 97%). If this test is not being used to help rule out DVT and PE, then the following reference range should be utilized: 0.00 - 0.59 ug/mL FEU. The D-Dimer assay is intended for use as an aid in the diagnosis of venous thromboembolism (DVT and PE) and the results should be interpreted in conjunction with the patient's medical history, clinical presentation, and other findings. Elevated levels of D-dimer activity can be seen in any state of coagulation activation and is not recommended in patients with therapeutic dose anticoagulant therapy for >24 hours, fibrinolytic therapy within the previous 7 days, trauma or surgery within the previous 4 weeks, disseminated malignancies, aortic aneurysm, sepsis, severe infections, pneumonia, severe skin infections, liver cirrhosis, advanced age, coronary disease, diabetes, and . A very low percentage of patients with DVT may yield D-dimer results below the cutoff of 0.5 ug/mL FEU. This is known to be more prevalent in patients with distal DVT. Performed By: #### U DA, UAX #### [facility] [address] [place] [address] Branch Credit Counselor: Calin Tapia MD HCG Screen, Bloodon 03-18-20 HCG Screen, Blood Negative Normal NEG [facility] Comment on above: Result Comment: Spec imens with hCG levels near the threshold of the test (25 mIU/mL) may give a negative or indeterminate result. In such cases, another test should be performed with a new specimen in 48-72 hours. If early is suspected clinically in this setting, correlation with quantitative serum b-hCG level is suggested. [facility] has confirmed the use of plasma for this test. This has not been cleared or approved by the U.S. Food and Drug Administration. The FDA has determined that such clearance is not necessary. Performed By: #### Jacklyn ROBERSON, UAX #### [facility] [address] [place] [address] Branch Credit Counselor: Calin Tapia MD Lipaseon 03-18-2024 Lipase [Catalytic activity/Vol] 21 U/L Normal 13-60 [facility] Comment on above: Performed By: #### T SHX #### [facility] [address] [place] [address] Branch Credit Counselor: Calin Tapia MD Troponinon 03-18-2024 Troponin, High Sens 6 ng/L Normal 0-14 [facility] Comment on above: Result Comment: High Sensitivity Troponin values cannot be compared with other Troponin methodologies. Performed By: #### T SHX #### [facility] [address] [place], [place] [id number] Branch Credit Counselor: Calin Tapia MD Urinalysis w/ Microon 2023 Bacteria TRACE Abnormal NONE [facility] Comment on above: Performed By: #### T SHX #### [facility] [address] [place], [place] 128[address]83 Branch Credit Counselor: Calin Tapia MD Bilirubin, SemiQt,Ur Negative Normal NEG [facility] Comment on above: Performed By: #### T SHX #### [facility] [address] [place], [place] [address] Branch Credit Counselor: Calin Tapia MD Blood, Urine TRACE Abnormal NEG [facility] Comment on above: Performed By: #### T SHX #### [facility] [address] [place], [place] [id number] Branch Credit Counselor: Calin Tapia MD Clarity (U) Clear Normal CLEAR [facility] Comment on above: Performed By: #### T SHX #### [facility] [address] [place], [place] [id number] Branch Credit Counselor: Calin Tapia MD Color (U) Yellow Normal YEL [facility] Comment on above: Performed By: #### T SHX #### [facility] [address] [place], [place] [id number] Branch Credit Counselor: Calin Tapia MD Epithelial cells LM Ql (Urine sed) 0 TO 2 Normal 0-25 [facility] Comment on above: Performed By: #### T SHX #### [facility] [address] [place], [place] [id number] Branch Credit Counselor: Calin Tapia MD Glucose Ql (U) Negative Normal NEG [facility] Comment on above: Performed By: #### T SHX #### [facility] [address] [place], [place] [id number] Branch Credit Counselor: Calin Tapia MD Ketones Ql (U) Negative Normal NEG [facility] Comment on above: Performed By: #### T SHX #### [facility] [address] [place], [place] [id number] Branch Credit Counselor: Calin Tapia MD Leukocyte esterase Test strip Ql (U) Negative Normal NEG [facility] Comment on above: Performed By: #### T SHX #### [facility] [address] [place], [place] [id number] Branch Credit Counselor: Calin Tapia MD Nitrite,Ur Negative Normal NEG [facility] Comment on above: Performed By: #### T SHX #### [facility] [address] [place], [place] 2117383 Branch Credit Counselor: Calin Tapia MD PH,Ur 6.5 Normal 5.0-9.0 [facility] Comment on above: Performed By: #### T SHX #### [facility] [address] [place], [place] [id number] Branch Credit Counselor: Calin Tapia MD Protein Ql (U) Negative Normal NEG [facility] Comment on above: Performed By: #### T SHX #### [facility] [address] [place] [address] Branch Credit Counselor: Calin Tapia MD Spec. Wellington,Ur 1.010 Normal 1.010-1.020 [facility] Comment on above: Performed By: #### T SHX #### [facility] [address] [place] [address] Branch Credit Counselor: Calin Tapia MD Urine RBC's 0 TO 2 Normal 0-2 [facility] Comment on above: Performed By: #### T SHX #### [facility] [address] [place], [place] [id number] Branch Credit Counselor: Calin Tapia MD Urine WBC's 0 TO 2 Normal 0-5 [facility] Comment on above: Performed By: #### T SHX #### [facility] [address] [place] [id number] Branch Credit Counselor: Calin Tapia MD Urobilinogen,Ur Normal Normal 0.0-1.0 [facility] Comment on above: Performed By: #### T SHX #### [facility] [address] [place] [phone] Branch Credit Counselor: Calin Tapia MD XR CHEST (2 VW)on 03-18-2024 XR CHEST (2 VW) EXAMINATION: TWO XRAY VIEWS OF THE CHEST 03/18/2024 7:35 am COMPARISON: November 22, 2018. HISTORY: ORDERING SYSTEM PROVIDED HISTORY: Chest/back pain TECHNOLOGIST PROVIDED HISTORY: Chest/back pain FINDINGS: The cardiomediastinal silhouette is normal in size. The lungs are clear. No pleural effusion or pneumothorax is present. IMPRESSION: No acute cardiopulmonary process. Interpreted by: Calin Romero MD Signed by: Calin Romero MD 03/18/24 Final result Normal [facility] Anti-Thy Peroxidaseon 2023 Anti-Thy Peroxidase <4.0 Normal 0.0-25.0 [facility] Comment on above: Result Comment: Reference Range: <25.0 Negative 25.0-35.0 Equivocal >35.0 Positive When results are Equivocal, it is recommended to retest after 8-12 weeks. Performed By: #### U AMIC, CG #### [facility] [address] [place] [address] Branch Credit Counselor: Calin Tapia MD T4, Freeon 01-22-2024 Free T4 [Mass/Vol] 1.6 ng/dL 0.92 - 1. 68 ng/dL [facility] TSH w/reflex to FT4on 2023 Thyroid Stim. Horm. 1.40 uIU/mL Normal 0.30-5.00 [facility] Comment on above: Performed By: #### U [facility] #### [facility] [address] [place] [address] Branch Credit Counselor: Calin Tapia MD TSH with Reflexon 01-22-2024 TSH Qn 1.40 m[IU]/L [facility] Thyroxine, Freeon 01-22-2024 Thyroxine, Free 1.6 ng/dL Normal 0.92-1.68 [facility] Comment on above: Performed By: #### Jacklyn [facility] #### [facility] [address] [place] [address] Branch Credit Counselor: Calin Tapia MD Calprotectin, Fecalon 2023 Calprotectin, Fecal 32 ug/g Normal <=49 [facility] Comment on above: Result Comment: (NOT E) REFERENCE INTERVAL: Calprotectin, Fecal by Immunoassay Less than 50 ug/g.........Normal 50-120 ug/g...............Borderline elevated, test should be re-evaluated in 4-6 weeks. 121 ug/g or greater.......Elevated Performed By: [employer] [address] [place] [id number] Skin Lap Bonder: Jad Perry MD, PhD CLIA Number: [id number] Performed By: #### U JOLLY [facility] #### [facility] [address] [place] [address] Branch Credit Counselor: Calin Tapia MD Food, Comprehensiveon 2023 Barley IgE <0.10 Normal 0.00-0.34 [facility] Comment on above: Performed By: #### T SHX #### [facility] [address] [place], [place] 111[address]483 Branch Credit Counselor: Calin Tapia MD Beef IgE <0.10 Normal 0.00-0.34 [facility] Comment on above: Performed By: #### T SHX #### [facility] [address] [place], [place] [address] Branch Credit Counselor: Calin Tapia MD Cabbage IgE <0.10 Normal 0.00-0.34 [facility] Comment on above: Performed By: #### T SHX #### [facility] [address] [place], [facility]83 Branch Credit Counselor: Calin Tapia MD Carrot IgE <0.10 Normal 0.00-0.34 [facility] Comment on above: Performed By: #### T SHX #### [facility] [address] [place], [place] [id number] Branch Credit Counselor: Calin Tapia MD Chicken IgE <0.10 Normal 0.00-0.34 [facility] Comment on above: Performed By: #### T SHX #### [facility] [address] [place], [facility]83 Branch Credit Counselor: Calin Tapia MD Codfish IgE <0.10 Normal 0.00-0.34 [facility] Comment on above: Performed By: #### T SHX #### [facility] [address] [place], [place] 5248483 Branch Credit Counselor: Calin Tapia MD Cordova IgE <0.10 Normal 0.00-0.34 [facility] Comment on above: Performed By: #### T SHX #### [facility] [address] [place], [place] [phone] Branch Credit Counselor: Calin Tapia MD Crab IgE <0.10 Normal 0.00-0.34 [facility] Comment on above: Performed By: #### T SHX #### [facility] [address] [place] [address] [place] [place], [place] [id number] Branch Credit Counselor: Calin Tapia MD Egg White IgE <0.10 Normal 0.00-0.34 [facility] Comment on above: Performed By: #### T SHX #### [facility] [address] [place] [address] [place] [place], [place] [id number] Branch Credit Counselor: Calin Tapia MD Grape IgE <0.10 Normal 0.00-0.34 [facility] Comment on above: Performed By: #### T SHX #### [address] [place] [id number] Branch Credit Counselor: Calin Tapia MD Lettuce IgE <0.10 Normal 0.00-0.34 [facility] Comment on above: Performed By: #### T SHX #### [address] [place] [id number] Branch Credit Counselor: Calin Tapia MD Milk (Cow) IgE <0.10 Normal 0.00-0.[address] [facility] Comment on above: Performed By: #### T SHX #### [facility] [address] [place] [address] Dr. [place], [facility]83 Branch Credit Counselor: Calin Tapia MD Rippey Song IgE <0.10 Normal 0.00-0.34 [facility] Comment on above: Performed By: #### T SHX #### [facility] [address] [place] [address] [place] [address] Branch Credit Counselor: Calin Tapia MD Oat IgE <0.10 Normal 0.00-0.34 [facility] Comment on above: Performed By: #### T SHX #### [facility] [address] [place] [address] [place]. [place] [id number] Branch Credit Counselor: Calin Tapia MD Newton IgE <0.10 Normal 0.00-0.34 [facility] Comment on above: Performed By: #### T SHX #### [facility] [address] [place] [address] [place] [address] Branch Credit Counselor: Calin Tapia MD Peanut IgE <0.10 Normal 0.00-0.34 [facility] Comment on above: Performed By: #### T SHX #### [facility] [address] [place] [address] Dr. [place] [id number] Branch Credit Counselor: Calin Tapia MD Pepper C. annuum IgE <0.10 Normal 0.00-0.34 [facility] Comment on above: Performed By: #### T SHX #### [facility] [address] [place] [address] Dr. [place] [id number] Branch Credit Counselor: Calin Tapia MD Pork IgE <0.10 Normal 0.00-0.34 [facility] Comment on above: Performed By: #### T SHX #### [facility] [address] [place] [address] Dr. [place] [id number] Branch Credit Counselor: Calin Tapia MD Potato IgE <0.10 Normal 0.00-0.34 [facility] Comment on above: Performed By: #### T SHX #### [facility] [address] [place] [address] Dr. [place] [id number] Branch Credit Counselor: Calin Tapia MD Rice IgE <0.10 Normal 0.00-0.34 [facility] Comment on above: Performed By: #### T SHX #### [facility] [address] [place] [id number] Branch Credit Counselor: Calin Tapia MD Trenton IgE <0.10 Normal 0.00-0.34 [facility] Comment on above: Performed By: #### T SHX #### [facility] [address] [place], [place] 232[address]83 Branch Credit Counselor: Calin Tapia MD Shrimp IgE <0.10 Normal 0.00-0.34 [facility] Comment on above: Performed By: #### T SHX #### [facility] [address] [place] [id number] Branch Credit Counselor: Calin Tapia MD Soybean IgE <0.10 Normal 0.00-0.34 [facility] Comment on above: Performed By: #### T SHX #### [facility] [address] [place] [id number] Branch Credit Counselor: Calin Tapia MD Tomato IgE <0.10 Normal 0.00-0.34 [facility] Comment on above: Performed By: #### T SHX #### [facility] [address] [place] [address] Dr. [place] [id number] Branch Credit Counselor: Calin Tapia MD Tuna IgE <0.10 Normal 0.00-0.34 [facility] Comment on above: Performed By: #### T SHX #### [facility] [address] [place] [address] Dr. [place] [id number] Branch Credit Counselor: Calin Tapia MD Wheat IgE <0.10 Normal 0.00-0.34 [facility] Comment on above: Result Comment: ALLERGEN, INTERP, IMMUNOCAP SCORE IGE <0.10 Class 0 No significant level detected 0.10-0.34 Class 0/1 Clinical relevance undertermined 0.35 to 0.70 Class 1 Low 0.71 to 3.50 Class 2 Moderate 3.51 to 17.50 Class 3 High 17.51 to 50.00 Class 4 Very High 50.01 to 100.00 Class 5 Very High >100.00 Class 6 Very High units: kU/L Increasing ranges are reflective of increasing concentrations of allergen specific IgE. These concentrations may not correlate with the degree of clinical response or skin testing results when challenged with a specific allergen. The correlation of allergy laboratory results with the clinical history and in vivo reactivity to specific allergens is essential. A negative test may not rule out clinical allergy or even anaphylaxis. Performed By: #### T SHX #### [facility] [address] [place] [address] [place] [address] Branch Credit Counselor: Calin Tapia MD Celiac Reflex Panelon 2023 Gliadin Deam Pep IgA 4.7 U/mL Normal <7.0 [facility] Comment on above: Result Comment: CELIAC INTERPRETATION <7.0 Negative 7.0-10.0 Equivocal >10.0 Positive units: U/mL Performed By: #### U MICAO, UAX #### [address] [place] [address] Branch Credit Counselor: Calin Tapia MD Gliadin Deam Pep IgG <0.4 Normal <7.0 [facility] Comment on above: Result Comment: CELIAC INTERPRETATION <7.0 Negative 7.0-10.0 Equivocal >10.0 Positive units: U/mL Performed By: #### U MICAO, UAX #### [address] [place], [place] 460[address]83 Branch Credit Counselor: Calin Tapia MD Tiss Transglutam IgA <0.1 Normal <7.0 [facility] Comment on above: Result Comment: CELIAC INTERPRETATION <7.0 Negative 7.0-10.0 Equivocal >10.0 Positive units: U/mL Performed By: #### U MICAO, UAX #### [facility] [address] [place] [address] Dr. [place], [place] [id number] Branch Credit Counselor: Calin Tapia MD Tiss Transglutam IgG <0.6 Normal <7.0 [facility] Comment on above: Result Comment: CELIAC INTERPRETATION <7.0 Negative 7.0-10.0 Equivocal >10.0 Positive units: U/mL Performed By: #### U MICAO, UAX #### [facility] [address] [place] [address] [place] [address] Branch Credit Counselor: Calin Tapia MD Ova+Parasit,Preservedon 01-01 Ova+Parasit,Preserve d Specimen Description .FECES O+P Result Specimen sent in preservative. CONCENTRATE STAIN: NO OVA OR PARASITES SEEN PERMANENT STAIN: NO OVA OR PARASITES SEEN Report Status FINAL 01/18/2024 [facility] Comment on above: Performed By: #### U DA UAX #### [facility] [address] [place] [address] Branch Credit Counselor: Calin Tapia MD Cult,Woundon 01-17-2024 Cult,Wound Specimen Description .NOSE Direct Exam NO NEUTROPHILS SEEN RARE GRAM POSITIVE COCCI Culture NORMAL SKIN TEX Report Status FINAL 01/17/2024 [facility] Comment on above: Performed By: #### U MACHO ROBERSON #### [facility] [address] [place] [address] Branch Credit Counselor: Calin Tapia MD Stool PCR Batteryon 01-17-20 Campylobacter sp PCR NEGATIVE: No Campylobacter spp. (jejuni or coli) DNA Detected Normal CAMNEG [facility] Comment on above: Performed By: #### U JOLLY [facility] #### [facility] [address] [place] [address] Branch Credit Counselor: Calin Tapia MD E coli enterotox PCR NEGATIVE: No Enterotoxigenic E. coli (ETEC) Heat-labile and heat-stable (LT/ST) Normal EECNEG [facility] Comment on above: Result Comment: DNA Detected Performed By: #### U JOLLY CG #### [facility] [address] [place], [place] [phone] Branch Credit Counselor: Calin Tapia MD Plesiomonas sp PCR Negative Normal PLENEG [facility] Comment on above: Performed By: #### U JOLLY CG #### [facility] [address] [place] [address] Branch Credit Counselor: Calin Tapia MD Salmonella sp PCR Negative Normal SALNEG [facility] Comment on above: Performed By: #### U JOLLY, [facility] #### [facility] [address] [place], [place] [phone] Branch Credit Counselor: Calin Tapia MD Shigatoxin gene PCR Negative Normal STXNEG [facility] Comment on above: Performed By: #### U AMIC, CG #### [facility] [address] [place], [place] [id number] Branch Credit Counselor: Calin Tapia MD Shigella sp PCR Negative Normal SHINEG [facility] Comment on above: Performed By: #### U AMIC, [facility] #### [facility] [address] [place] [address] Branch Credit Counselor: Calin Tapia MD Vibrio sp PCR NEGATIVE: No Vibrio (V. vulnificus, V, parahaemolyticus and V. cholerae) DNA Normal VIBNEG [facility] Comment on above: Result Comment: Dete cted Performed By: #### U [facility] #### [facility] [address] [place] [address] Branch Credit Counselor: Calin Tapia MD Yersinia gene PCR Negative [facility] [facility] Comment on above: Performed By: #### U [facility], [facility] #### [facility] [address] [place] [address] Dr[place], [place] [id number] Branch Credit Counselor: Calin Tapia MD C diff Ag + Toxinon 01-16-20 24 C diff Ag + Toxin Negative Normal NEG [facility] Comment on above: Result Comment: No C . difficile antigen and Toxin Detected. Performed By: #### U AMIC, [facility] #### [facility] [address] [place], [place] [id number] Branch Credit Counselor: Calin Tapia MD Specimen Description .FECES Normal [facility] Comment on above: Performed By: #### U AMIC, [facility] #### [facility] [address] [place], [place] [id number] Branch Credit Counselor: Calin Tapia MD Occult Blood, Fecalon 2023 Occult Blood 1 Negative Normal NEG [facility] Comment on above: Performed By: #### U AMIC, UHCG #### [facility] [address] [place], [place] [address] Branch Credit Counselor: Calin Tapia MD Specimen 1 Date [facility] Comment on above: Performed By: #### U AMIC, UHCG #### [facility] [address] [place], [place] [id number] Branch Credit Counselor: Calin Tapia MD Specimen 1 Time 0900 [facility] Comment on above: Performed By: #### U AMIC, UHCG #### [facility] [address] [place], [place] [id number] Branch Credit Counselor: Calin Tapia MD C-Reactive Proteinon 024 CRP High sensitivity method [Mass/Vol] mg/L 0.0 - 5.0 mg/L [facility] CRP [Mass/Vol] mg/L Normal 0.0-5.[address] [facility] Comment on above: Performed By: #### U MICAO, UAX #### [facility] [address] [place] [address] Dr[place], [place] [id number] Branch Credit Counselor: Calin Tapia MD CBC with Auto Differentialon 01-15-2024 Basophils (Bld) [#/Vol] 0.06 10*3/uL [facility] Basophils/100 WBC (Bld) 1 % 0 - 2 % [facility] Eosinophils (Bld) [#/Vol] 0.16 10*3/uL [facility] Eosinophils/100 WBC (Bld) 2 % 1 - 4 % [facility] Erythrocyte distribution width (RBC) [Ratio] 11.8 % 11.8 - 14.4 % [facility] Hematocrit (Bld) [Volume fraction] 40.9 % 36.3 - 47.1 % [facility] Hemoglobin (Bld) [Mass/Vol] 14.7 g/dL 11.9 - 15.1 g/dL [facility] Immature granulocytes (Bld) [#/Vol] 0.03 10*3/uL [facility] Immature granulocytes/100 WBC (Bld) 0 % 0 [facility] Interpretation and review of laboratory results Abnormal [facility] Lymphocytes/100 WBC (Bld) 22 % Low 24 - 43 % [facility] Lymphocytes/100 WBC (Bld) 1.92 % [facility] MCH (RBC) [Entitic mass] 34.3 pg High 25.2 - 33.5 pg [facility] MCHC (RBC) [Mass/Vol] 35.9 g/dL High 28.4 - 34.8 g/dL [facility] MCV (RBC) [Entitic vol] 95.3 fL 82.6 - 102.9 fL [facility] Monocytes/100 WBC (Bld) 6 % 3 - 12 % [facility] Monocytes/100 WBC (Bld) 0.50 % [facility] Neutrophils/100 WBC (Bld) 70 % High 36 - 65 % [facility] Nucleated RBC/100 WBC (Bld) [Ratio] 0.0 % 0.0 per 100 WBC [facility] Platelet mean volume (Bld) [Entitic vol] 9.8 fL 8.1 - 13.5 fL [facility] Platelets (Bld) [#/Vol] 342 10*3/uL [facility] RBC (Bld) [#/Vol] 4.29 10*6/uL 3.95 - 5.1 1 m/uL [facility] Segmented neutrophils/100 WBC (Bld) 6.04 % [facility] WBC other (Bld) [#/Vol] 8.7 [facility] CBC with Diffon 01-15-2024 Abs. Basophil 0.06 k/uL Normal 0.00-0.20 [facility] Comment on above: Performed By: #### U MICAO, UAX #### [facility] [address] [place], [place] [id number] Branch Credit Counselor: Calin Tapia MD Abs.Imm.Granulocyte 0.03 k/uL Normal 0.00-0.30 [facility] Comment on above: Performed By: #### U MICAO, UAX #### [facility] [address] [place], [facility]83 Branch Credit Counselor: Calin Tapia MD Abs.Neutrophil (Seg) 6.04 k/uL Normal 1.50-8.10 [facility] Comment on above: Performed By: #### U KATHERINEO, UAX #### [address] [place], [facility]83 Branch Credit Counselor: Calin Tapia MD Basophils/100 WBC (Bld) 1 % Normal 0-2 [facility] Comment on above: Performed By: #### U KATHERINEO, UAX #### [address] [place], [facility]83 Branch Credit Counselor: Calin Tapia MD Eosinophils (Bld) [#/Vol] 0.16 10*3/uL Normal 0.00-0.44 [facility] Comment on above: Performed By: #### U MICAO, UAX #### [address] [place], [facility]83 Branch Credit Counselor: Calin Tapia MD Eosinophils/100 WBC (Bld) 2 % Normal 1-4 [facility] Comment on above: Performed By: #### U MICAO, UAX #### [address] [place], [facility]83 Branch Credit Counselor: Calin Tapia MD Erythrocyte distribution width (RBC) [Ratio] 11.8 % Normal 11.8-14.4 [facility] Comment on above: Performed By: #### U MICAO, UAX #### [address] [place] [id number] Branch Credit Counselor: Calin Tapia MD Hematocrit (Bld) [Volume fraction] 40.9 % Normal 36.3-47.1 [facility] Comment on above: Performed By: #### U MICAO, UAX #### [facility] [address] [place] [facility] Branch Credit Counselor: Calin Tapia MD Hemoglobin (Bld) [Mass/Vol] 14.7 g/dL Normal 11.9-15.1 [facility] Comment on above: Performed By: #### U MICAO, UAX #### [facility] [address] [place] [id number] Branch Credit Counselor: Calin Tapia MD Immature granulocytes/100 WBC (Bld) 0 % Normal 0 [facility] Comment on above: Performed By: #### U DA, UAX #### [facility] [address] [place], [facility] Branch Credit Counselor: Calin Tapia MD Lymphocytes (Bld) [#/Vol] 1.92 10*3/uL Normal 1.10-3.70 [facility] Comment on above: Performed By: #### U MICAO, UAX #### [facility] [address] [place] [address] [place] [id number] Branch Credit Counselor: Calin Tapia MD Lymphocytes/100 WBC (Bld) 22 % Low 24-43 [facility] Comment on above: Performed By: #### U MICAO, UAX #### [facility] [address] [place], [facility]83 Branch Credit Counselor: Calin Tapia MD MCH (RBC) [Entitic mass] 34.3 pg High 25.2-33.5 [facility] Comment on above: Performed By: #### U MICAO, UAX #### [facility] [address] [place] [facility]83 Branch Credit Counselor: Calin Tapia MD MCHC (RBC) [Mass/Vol] 35.9 g/dL High 28.4-34.8 [facility] Comment on above: Performed By: #### Jacklyn ROBERSON UAX #### [facility] [address] [place], [place] [id number] Branch Credit Counselor: Calin Tapia MD MCV (RBC) [Entitic vol] 95.3 fL Normal 82.6-102.9 [facility] Comment on above: Performed By: #### Jacklyn ROBERSON UAX #### [facility] [address] [place] [address] Branch Credit Counselor: Calin Tapia MD Monocytes (Bld) [#/Vol] 0.50 10*3/uL Normal 0.10-1.20 [facility] Comment on above: Performed By: #### Jacklyn ROBERSON UAX #### [address] [place], [place] [id number] Branch Credit Counselor: Calin Tapia MD Monocytes/100 WBC (Bld) 6 % Normal 3-12 [facility] Comment on above: Performed By: #### Jacklyn ROBERSON UAX #### [address] [place], [place] [id number] Branch Credit Counselor: Calin Tapia MD Neutrophil (Seg) 70 % High 36-65 [facility] Comment on above: Performed By: #### Jacklyn ROBERSON UAX #### [facility] [address] [place], [place] [id number] Branch Credit Counselor: Calin Tapia MD NRBC Automated 0.0 per 100 WBC Normal 0.0 [facility] Comment on above: Performed By: #### U DA UAX #### [facility] [address] [place], [place] [id number] Branch Credit Counselor: Calin Tapia MD Platelet mean volume (Bld) [Entitic vol] 9.8 fL Normal 8.1-13.5 [facility] Comment on above: Performed By: #### U MICAO, UAX #### [facility] [address] [place], [place] [id number] Branch Credit Counselor: Calin Tapia MD Platelets (Bld) [#/Vol] 342 10*3/uL Normal 138-453 [facility] Comment on above: Performed By: #### U MICAO, UAX #### [facility] [address] [place], [place] [id number] Branch Credit Counselor: Calin Tapia MD RBC (Bld) [#/Vol] 4.29 10*6/uL Normal 3.95-5.11 [facility] Comment on above: Performed By: #### U MICAO, UAX #### [address] [place], [place] [id number] Branch Credit Counselor: Calin Tapia MD WBC (Bld) [#/Vol] 8.7 10*3/uL Normal 3.5-11.3 [facility] Comment on above: Performed By: #### U KATHERINEO, UAX #### [address] [place] [address] Branch Credit Counselor: Calin Tapia MD Celiac Reflex Panelon 2023 IgA [Mass/Vol] 281 mg/dL Normal 70-[address] [facility] Comment on above: Performed By: #### U MICAO, UAX #### [address] [place] [address] Branch Credit Counselor: Calin Tapia MD Comp Metabolic Profon 2023 Albumin [Mass/Vol] 4.9 g/dL Normal 3.5-5.2 [facility] Comment on above: Performed By: #### U MICAO, UAX #### [facility] [address] [place] [address] Branch Credit Counselor: Calin Tapia MD Albumin/Glob Ratio 1.8 Normal 1.0-2.5 [facility] Comment on above: Performed By: #### U MICAO, UAX #### [facility] [address] [place] [address] Branch Credit Counselor: Calin Tapia MD Alkaline Phos 59 U/L Normal 35-104 [facility] Comment on above: Performed By: #### U MICAO, UAX #### [facility] [address] [place], [place] [id number] Branch Credit Counselor: Calin Tapia MD ALT [Catalytic activity/Vol] 26 U/L Normal 5-33 [facility] Comment on above: Performed By: #### U MICAO, UAX #### [facility] [address] [place] [address] Branch Credit Counselor: Calin Tapia MD Anion gap [Moles/Vol] 9 mmol/L Normal 9-17 [facility] Comment on above: Performed By: #### U MICAO, UAX #### [address] [place], [place] [id number] Branch Credit Counselor: Calin Tapia MD AST [Catalytic activity/Vol] 25 U/L Normal <32 [facility] Comment on above: Performed By: #### U MICAO, UAX #### [facility] [address] [place], [facility]83 Branch Credit Counselor: Calin Tapia MD Bilirubin [Mass/Vol] 0.4 mg/dL Normal 0.3-1.2 [facility] Comment on above: Performed By: #### U MICAO, UAX #### [facility] [address] [place] [address] Branch Credit Counselor: Calin Tapia MD BUN/CRE Ratio 10 Normal 9-20 [facility] Comment on above: Performed By: #### U MICAO, UAX #### [facility] [address] [place] [address] Branch Credit Counselor: Calin Tapia MD Calcium [Mass/Vol] 9.4 mg/dL Normal 8.6-10.4 [facility] Comment on above: Performed By: #### U MICAO, UAX #### [facility] [address] [place], [place] [id number] Branch Credit Counselor: Calin Tapia MD Chloride [Moles/Vol] 104 mmol/L Normal 98-107 [facility] Comment on above: Performed By: #### U MICAO, UAX #### [facility] [address] [place] [address] Branch Credit Counselor: Calin Tapia MD CO2 [Moles/Vol] 28 mmol/L Normal 20-31 [facility] Comment on above: Performed By: #### U DA, UAX #### [facility] [address] [place], [place] [address]83 Branch Credit Counselor: Calin Tapia MD Creatinine [Mass/Vol] 0.7 mg/dL Normal 0.5-0.9 [facility] Comment on above: Performed By: #### U DA, UAX #### [facility] [address] [place] [address] Branch Credit Counselor: Calin Tapia MD GFR/1.73 sq M.predicted among non-blacks MDRD (S/P/Bld) [Vol rate/Area] mL/min/{1.73_m2} Normal >60 [facility] Comment on above: Result Comment: These results are not intended for use in patients <18 years of age. eGFR results are calculated without a race factor using the 2020 CKD-EPI equation. Careful clinical correlation is recommended, particularly when comparing to results calculated using previous equations. The CKD-EPI equation is less accurate in patients with extremes of muscle mass, extra-renal metabolism of creatine, excessive creatine ingestion, or following therapy that affects renal tubular secretion. Performed By: #### U KATHERINEO, UAX #### [facility] [address] [place], [place] [id number] Branch Credit Counselor: Calin Tapia MD Glucose [Mass/Vol] 87 mg/dL Normal 70-99 [facility] Comment on above: Performed By: #### U MICAO, UAX #### [facility] [address] [place], [place] [id number] Branch Credit Counselor: Calin Tapia MD Potassium [Moles/Vol] 4.0 mmol/L Normal 3.7-5.3 [facility] Comment on above: Performed By: #### U MICAO, UAX #### [facility] [address] [place], [place] [id number] Branch Credit Counselor: Calin Tapia MD Protein [Mass/Vol] 7.7 g/dL Normal 6.4-8.3 [facility] Comment on above: Performed By: #### U KATHERINEO, UAX #### [facility] [address] [place], [place] [id number] Branch Credit Counselor: Calin Tapia MD Sodium [Moles/Vol] 141 mmol/L Normal 135-144 [facility] Comment on above: Performed By: #### U MICAO, UAX #### [facility] [address] [place], [place] [address]68383 Branch Credit Counselor: Calin Tapia MD Urea nitrogen [Mass/Vol] 7 mg/dL Normal 6-20 [facility] Comment on above: Performed By: #### U MICAO, UAX #### [facility] [address] [place], [place] [id number] Branch Credit Counselor: Calin Tapia MD Comprehensive Metabolic Pane [facility] 01-15-2024 Albumin [Mass/Vol] 4.9 g/dL 3.5 - 5.2 g/dL [facility] Albumin/Globulin [Mass ratio] 1.8 {ratio} 1.0 - 2.5 [facility] ALP [Catalytic activity/Vol] 59 U/L 35 - 104 U/L [facility] ALT [Catalytic activity/Vol] 26 U/L 5 - 33 U/L [facility] Anion gap [Moles/Vol] 9 mmol/L 9 - 17 mmol/L [facility] AST [Catalytic activity/Vol] 25 U/L NINF - 32 U/L [facility] Bilirubin [Mass/Vol] 0.4 mg/dL 0.3 - 1 .2 mg/dL [facility] Calcium [Mass/Vol] 9.4 mg/dL 8.6 - 10. 4 mg/dL [facility] Chloride [Moles/Vol] 104 mmol/L 98 - 10 7 mmol/L [facility] CO2 [Moles/Vol] 28 mmol/L 20 - 31 mmol/L [facility] Creatinine [Mass/Vol] 0.7 mg/dL 0.5 - 0.9 mg/dL [facility] Est, Glom Filt Rate - [facility] Comment on above: These results are not intended for use in patients <18 years of age. eGFR results are calculated without a race factor using the 2020 CKD-EPI equation. Careful clinical correlation is recommended, particularly when comparing to results calculated using previous equations. The CKD-EPI equation is less accurate in patients with extremes of muscle mass, extra-renal metabolism of creatine, excessive creatine ingestion, or following therapy that affects renal tubular secretion. Glucose [Mass/Vol] 87 mg/dL 70 - 99 mg/dL [facility] Potassium [Moles/Vol] 4.0 mmol/L 3.7 - 5.3 mmol/L [facility] Protein [Mass/Vol] 7.7 g/dL 6.4 - 8.3 g/dL [facility] Sodium [Moles/Vol] 141 mmol/L 135 - 144 mmol/L [facility] Urea nitrogen [Mass/Vol] 7 mg/dL 6 - 20 mg/dL [facility] Urea nitrogen/Creatinine [Mass ratio] 10 mg/mg 9 - 20 [facility] Food, Comprehensiveon 2023 Immunoglobulin E 14 IU/mL Normal 0-100 [facility] Comment on above: Performed By: #### T SHX #### [facility] [address] [place] [address] [place] [address] Branch Credit Counselor: Calin Tapia MD Chlamydia/GC,DNA Ampon 01-11 Chlamydia Probe Negative Normal NEG [facility] Comment on above: Result Comment: CHLA MYDIA TRACHOMATIS DNA not detected by nucleic acid amplification. This test is intended for medical purposes only and is not valid for the evaluation of suspected sexual abuse or for other forensic purposes. In certain contexts, culture may be required to meet applicable laws and regulations for diagnosis of C. trachomatis and N. gonorrhoeae infections. Per 2014 CDC recommendations, this test does not include confirmation of positive results by an alternative nucleic acid target. Performed By: #### U HCGMAVIS, UAX #### [address] [place] [address] Branch Credit Counselor: Calin Tapia MD Gonorrhea Probe Negative Normal [facility] Comment on above: Result Comment: NEIS SERIA GONORRHOEAE DNA not detected by nucleic acid amplification. This test is intended for medical purposes only and is not valid for the evaluation of suspected sexual abuse or for other forensic purposes. In certain contexts, culture may be required to meet applicable laws and regulations for diagnosis of C. trachomatis and N. gonorrhoeae infections. Per 2014 CDC recommendations, this test does not include confirmation of positive results by an alternative nucleic acid target. Performed By: #### U HCGSHERRIO, UAX #### [address] [place] [address] Branch Credit Counselor: Calin Tapia MD Cult,Urineon 01-12-2024 Cult,Urine Specimen Description .CLEAN CATCH URINE Special Requests Site: Urine Culture NO SIGNIFICANT GROWTH Report Status FINAL 01/12/2024 Normal [facility] Comment on above: Performed By: #### U HCG, UMICAO, UAX #### [facility] [address] [place] [address] Branch Credit Counselor: Calin Tapia MD CBC with Auto Differentialon 01-11-2024 Basophils (Bld) [#/Vol] 0.04 10*3/uL [facility] Basophils/100 WBC (Bld) 1 % 0 - 2 % [facility] Eosinophils (Bld) [#/Vol] 0.08 10*3/uL [facility] Eosinophils/100 WBC (Bld) 1 % 1 - 4 % [facility] Erythrocyte distribution width (RBC) [Ratio] 11.9 % 11.8 - 14.4 % [facility] Hematocrit (Bld) [Volume fraction] 37.5 % 36.3 - 47.1 % [facility] Hemoglobin (Bld) [Mass/Vol] 13.4 g/dL 11.9 - 15.1 g/dL [facility] Immature granulocytes (Bld) [#/Vol] [facility] Immature granulocytes/100 WBC (Bld) 0 % 0 [facility] Interpretation and review of laboratory results Abnormal [facility] Lymphocytes/100 WBC (Bld) 20 % Low 24 - 43 % [facility] Lymphocytes/100 WBC (Bld) 1.16 % [facility] MCH (RBC) [Entitic mass] 33.9 pg High 25.2 - 33.5 pg [facility] MCHC (RBC) [Mass/Vol] 35.7 g/dL High 28.4 - 34.8 g/dL [facility] MCV (RBC) [Entitic vol] 94.9 fL 82.6 - 102.9 fL [facility] Monocytes/100 WBC (Bld) 9 % 3 - 12 % [facility] Monocytes/100 WBC (Bld) 0.50 % [facility] Neutrophils/100 WBC (Bld) 69 % High 36 - 65 % [facility] Nucleated RBC/100 WBC (Bld) [Ratio] 0.0 % 0.0 per 100 WBC [facility] Platelet mean volume (Bld) [Entitic vol] 9.5 fL 8.1 - 13.5 fL [facility] Platelets (Bld) [#/Vol] 227 10*3/uL [facility] RBC (Bld) [#/Vol] 3.95 10*6/uL 3.95 - 5.1 1 m/uL [facility] Segmented neutrophils/100 WBC (Bld) 4.03 % [facility] WBC other (Bld) [#/Vol] 5.8 [facility] CBC with Diffon 01-11-2024 Abs. Basophil 0.04 k/uL Normal 0.00-0.20 [facility] Comment on above: Performed By: #### U [facility] #### [facility] [address] [place], [place] [id number] Branch Credit Counselor: Calin Tapia MD Abs.Imm.Granulocyte <0.03 Normal 0.00-0.30 [facility] Comment on above: Performed By: #### U [facility]LLY [facility] #### [address] [place], [place] [address] Branch Credit Counselor: Calin Tapia MD Abs.Neutrophil (Seg) 4.03 k/uL Normal 1.50-8.10 [facility] Comment on above: Performed By: #### U JOLLY [facility] #### [address] [place], [place] [address]83 Branch Credit Counselor: Calin Tapia MD Basophils/100 WBC (Bld) 1 % Normal 0-2 [facility] Comment on above: Performed By: #### U JOLLY [facility] #### [address] [place], [place] [address]83 Branch Credit Counselor: Calin Tapia MD Eosinophils (Bld) [#/Vol] 0.08 10*3/uL Normal 0.00-0.44 [facility] Comment on above: Performed By: #### U AMIWalker [facility] #### [facility] [address] [place] [address] Branch Credit Counselor: Calin Tapia MD Eosinophils/100 WBC (Bld) 1 % Normal 1-4 [facility] Comment on above: Performed By: #### U AMIC, UHCG #### [facility] [address] [place], [place] [address]83 Branch Credit Counselor: Calin Tapia MD Erythrocyte distribution width (RBC) [Ratio] 11.9 % Normal 11.8-14.4 [facility] Comment on above: Performed By: #### U AMIC, UHCG #### [facility] [address] [place], [facility]83 Branch Credit Counselor: Calin Tapia MD Hematocrit (Bld) [Volume fraction] 37.5 % Normal 36.3-47.1 [facility] Comment on above: Performed By: #### U AMIC, CG #### [address] [place], [facility]83 Branch Credit Counselor: Calin Tapia MD Hemoglobin (Bld) [Mass/Vol] 13.4 g/dL Normal 11.9-15.1 [facility] Comment on above: Performed By: #### U AMIC, CG #### [address] [place], [facility]83 Branch Credit Counselor: Calin Tapia MD Immature granulocytes/100 WBC (Bld) 0 % Normal 0 [facility] Comment on above: Performed By: #### U AMIC, CG #### [facility] [address] [place] [address] Dr. [place], [facility]83 Branch Credit Counselor: Calin Tapia MD Lymphocytes (Bld) [#/Vol] 1.16 10*3/uL Normal 1.10-3.70 [facility] Comment on above: Performed By: #### U AMIC, UHCG #### [facility] [address] [place] [address] Dr. [place], [facility]83 Branch Credit Counselor: Calin Tapia MD Lymphocytes/100 WBC (Bld) 20 % Low 24-43 [facility] Comment on above: Performed By: #### U AMIC, UHCG #### [facility] [address] [place], [place] [id number] Branch Credit Counselor: Calin Tapia MD MCH (RBC) [Entitic mass] 33.9 pg High 25.2-33.5 [facility] Comment on above: Performed By: #### U AMIC CG #### [facility] [address] [place], [facility]83 Branch Credit Counselor: Calin Tapia MD MCHC (RBC) [Mass/Vol] 35.7 g/dL High 28.4-34.8 [facility] Comment on above: Performed By: #### U AMIC [facility] #### [address] [place], [facility]83 Branch Credit Counselor: Calin Tapia MD MCV (RBC) [Entitic vol] 94.9 fL Normal 82.6-102.9 [facility] Comment on above: Performed By: #### U AMIC [facility] #### [address] [place], [facility]83 Branch Credit Counselor: Calin Tapia MD Monocytes (Bld) [#/Vol] 0.50 10*3/uL Normal 0.10-1.20 [facility] Comment on above: Performed By: #### U AMIC CG #### [address] [place], [facility]83 Branch Credit Counselor: Calin Tapia MD Monocytes/100 WBC (Bld) 9 % Normal 3-12 [facility] Comment on above: Performed By: #### U AMIC, CG #### [address] [place], [place] [id number] Branch Credit Counselor: Calin Tapia MD Neutrophil (Seg) 69 % High 36-65 [facility] Comment on above: Performed By: #### U AMIC, CG #### [facility] [address] [place], [place] [id number] Branch Credit Counselor: Calin Tapia MD NRBC Automated 0.0 per 100 WBC Normal 0.0 [facility] Comment on above: Performed By: #### U AMIC, CG #### [facility] [address] [place] [address] [place], [place] [id number] Branch Credit Counselor: Calin Tapia MD Platelet mean volume (Bld) [Entitic vol] 9.5 fL Normal 8.1-13.5 [facility] Comment on above: Performed By: #### U AMIC CG #### [address] [place], [place] [id number] Branch Credit Counselor: Calin Tapia MD Platelets (Bld) [#/Vol] 227 10*3/uL Normal 138-453 [facility] Comment on above: Performed By: #### U AMIC CG #### [address] [place] [address] Branch Credit Counselor: Calin Tapia MD RBC (Bld) [#/Vol] 3.95 10*6/uL Normal 3.95-5.11 [facility] Comment on above: Performed By: #### U AMIC, CG #### [address] [place], [place] 304[address]83 Branch Credit Counselor: Calin Tapia MD WBC (Bld) [#/Vol] 5.8 10*3/uL Normal 3.5-11.3 [facility] Comment on above: Performed By: #### U AMIC, CG #### [address] [place] [address] Branch Credit Counselor: Clain [facility] Albumin [Mass/Vol] 4.4 g/dL 3.5 - 5.2 g/dL [facility] Albumin/Globulin [Mass ratio] 1.7 {ratio} 1.0 - 2.5 [facility] ALP [Catalytic activity/Vol] 62 U/L 35 - 104 U/L [facility] ALT [Catalytic activity/Vol] 15 U/L 5 - 33 U/L [facility] Anion gap [Moles/Vol] 12 mmol/L 9 - 17 mmol/L [facility] AST [Catalytic activity/Vol] 18 U/L NINF - 32 U/L [facility] Bilirubin [Mass/Vol] 0.4 mg/dL 0.3 - 1 .2 mg/dL [facility] Calcium [Mass/Vol] 8.9 mg/dL 8.6 - 10. 4 mg/dL [facility] Chloride [Moles/Vol] 102 mmol/L 98 - 10 7 mmol/L [facility] CO2 [Moles/Vol] 24 mmol/L 20 - 31 mmol/L [facility] Creatinine [Mass/Vol] 0.6 mg/dL 0.5 - 0.9 mg/dL [facility] Est, Glom Filt Rate - [facility] Comment on above: These results are not intended for use in patients <18 years of age. eGFR results are calculated without a race factor using the 2020 CKD-EPI equation. Careful clinical correlation is recommended, particularly when comparing to results calculated using previous equations. The CKD-EPI equation is less accurate in patients with extremes of muscle mass, extra-renal metabolism of creatine, excessive creatine ingestion, or following therapy that affects renal tubular secretion. Glucose [Mass/Vol] 91 mg/dL 70 - 99 mg/dL [facility] Potassium [Moles/Vol] 3.7 mmol/L 3.7 - 5.3 mmol/L [facility] Protein [Mass/Vol] 7.0 g/dL 6.4 - 8.3 g/dL [facility] Sodium [Moles/Vol] 138 mmol/L 135 - 144 mmol/L [facility] Urea nitrogen [Mass/Vol] 8 mg/dL 6 - 20 mg/dL [facility] Urea nitrogen/Creatinine [Mass ratio] 13 mg/mg 9 - [address] [facility] [address] ABDOMEN PELVIS W IV CONTR Brad[place] 01-11-2024 CT ABDOMEN PELVIS W IV CONTRAST EXAMINATION: CT OF THE ABDOMEN AND PELVIS WITH CONTRAST TECHNIQUE: CT of the Abdomen and Pelvis with intravenous contrast was performed. Axial, sagittal and coronal reformatted images were reviewed. Low dose CT acquisition technique included one of the following options: 1. Automated exposure control, 2. Adjustment of the MA and/or KV according to patient size, or 3. Use of iterative reconstruction. COMPARISON: CT abdomen pelvis 11/08/2023 HISTORY: ORDERING SYSTEM PROVIDED HISTORY: Left-sided abd pain; ? blood in stool TECHNOLOGIST PROVIDED HISTORY: Left-sided abd pain; ? blood in stool Decision Support Exception - unselect if not a suspected or confirmed emergency medical condition->Emergency Medical Condition (MA) FINDINGS: Lower thorax: Mild bibasilar dependent atelectasis is noted. Unchanged 3 mm pleural based nodule at the basilar left lower lobe, likely atelectatic in nature. Solid organs: The liver, spleen, pancreas, and adrenal glands are unremarkable. Biliary system: No evidence of biliary ductal dilatation. Gallbladder appears normal. Genitourinary: The kidneys are normal in appearance bilaterally with no evidence of hydronephrosis. Subcentimeter, too small to further characterize hypoattenuating lesion at the medial aspect of the midpole of left kidney, unchanged. No stones are appreciated. The urinary bladder is prominently distended. Gastrointestinal: The stomach is unremarkable. The small bowel is nondistended. Multiple fluid-filled loops of small bowel, primarily in the lower abdomen. Scattered retained fecal matter is seen throughout the colon. No evidence of a bowel obstruction. Appendix: Within normal limits without adjacent fat stranding. Peritoneum: Mild free fluid in the pelvis. No free air. Abdominal wall: Unremarkable. Pelvic organs: The uterus is bulky in appearance and heterogenous enhancement. Venous congestion of the uterus and ovarian veins, most prominent on the left side. Lymph nodes: No adenopathy by size criteria. Vascular structures: Visualized vascular structures appear normal. Osseous and soft tissue structures: Bone windows demonstrate no suspicious osteolytic or osteoblastic lesions. No fracture identified. Mild rightward curvature of the lumbar spine, unchanged. Mild inflammatory change in the region of the tip of coccyx, likely due to decubitus position, correlate with physical exam. IMPRESSION: 1. Multiple fluid-filled loops of small bowel, primarily in the lower abdomen. May represent early illness or ingested material. 2. The uterus is bulky in appearance and heterogenous enhancement. Venous congestion of the uterus and ovarian veins, primarily on the left side. Recommend correlation with pelvic ultrasound and consider referral to interventional radiology. 3. Mild free fluid in the pelvis. 4. Mild inflammatory change in the region of the tip of coccyx, likely due to decubitus position, correlate with physical exam. 5. The bladder is prominently distended. Interpreted by: Jamey Perez MD Signed by: Jamey Perez MD 01/11/24 Final result Normal [facility] CT Abdomen and Pelvis W cont rast Carmen 01-11-2024 1. Multiple fluid-filled loops of small bowel, primarily in the lower abdomen. May represent early illness or ingested material. 2. The uterus is bulky in appearance and heterogenous enhancement. Venous congestion of the uterus and ovarian veins, primarily on the left side. Recommend correlation with pelvic ultrasound and consider referral to interventional radiology. 3. Mild free fluid in the pelvis. 4. Mild inflammatory change in the region of the tip of coccyx, likely due to decubitus position, correlate with physical exam. 5. The bladder is prominently distended. [facility] RIS CONSOLIDATED EXAMINATION: CT OF THE ABDOMEN AND PELVIS WITH CONTRAST TECHNIQUE: CT of the Abdomen and Pelvis with intravenous contrast was performed. Axial, sagittal and coronal reformatted images were reviewed. Low dose CT acquisition technique included one of the following options: 1. Automated exposure control, 2. Adjustment of the MA and/or KV according to patient size, or 3. Use of iterative reconstruction. COMPARISON: CT abdomen pelvis 11/08/2023 HISTORY: ORDERING SYSTEM PROVIDED HISTORY: Left-sided abd pain; ? blood in stool TECHNOLOGIST PROVIDED HISTORY: Left-sided abd pain; ? blood in stool Decision Support Exception - unselect if not a suspected or confirmed emergency medical condition->Emergency Medical Condition (MA) FINDINGS: Lower thorax: Mild bibasilar dependent atelectasis is noted. Unchanged 3 mm pleural based nodule at the basilar left lower lobe, likely atelectatic in nature. Solid organs: The liver, spleen, pancreas, and adrenal glands are unremarkable. Biliary system: No evidence of biliary ductal dilatation. Gallbladder appears normal. Genitourinary: The kidneys are normal in appearance bilaterally with no evidence of hydronephrosis. Subcentimeter, too small to further characterize hypoattenuating lesion at the medial aspect of the midpole of left kidney, unchanged. No stones are appreciated. The urinary bladder is prominently distended. Gastrointestinal: The stomach is unremarkable. The small bowel is nondistended. Multiple fluid-filled loops of small bowel, primarily in the lower abdomen. Scattered retained fecal matter is seen throughout the colon. No evidence of a bowel obstruction. Appendix: Within normal limits without adjacent fat stranding. Peritoneum: Mild free fluid in the pelvis. No free air. Abdominal wall: Unremarkable. Pelvic organs: The uterus is bulky in appearance and heterogenous enhancement. Venous congestion of the uterus and ovarian veins, most prominent on the left side. Lymph nodes: No adenopathy by size criteria. Vascular structures: Visualized vascular structures appear normal. Osseous and soft tissue structures: Bone windows demonstrate no suspicious osteolytic or osteoblastic lesions. No fracture identified. Mild rightward curvature of the lumbar spine, unchanged. Mild inflammatory change in the region of the tip of coccyx, likely due to decubitus position, correlate with physical exam. [facility] Jamey Bourne MD - 01/11/2024 EXAMINATION: CT OF THE ABDOMEN AND PELVIS WITH CONTRAST TECHNIQUE: CT of the Abdomen and Pelvis with intravenous contrast was performed. Axial, sagittal and coronal reformatted images were reviewed. Low dose CT acquisition technique included one of the following options: 1. Automated exposure control, 2. Adjustment of the MA and/or KV according to patient size, or 3. Use of iterative reconstruction. COMPARISON: CT abdomen pelvis 11/08/2023 HISTORY: ORDERING SYSTEM PROVIDED HISTORY: Left-sided abd pain; ? blood in stool TECHNOLOGIST PROVIDED HISTORY: Left-sided abd pain; ? blood in stool Decision Support Exception - unselect if not a suspected or confirmed emergency medical condition->Emergency Medical Condition (MA) FINDINGS: Lower thorax: Mild bibasilar dependent atelectasis is noted. Unchanged 3 mm pleural based nodule at the basilar left lower lobe, likely atelectatic in nature. Solid organs: The liver, spleen, pancreas, and adrenal glands are unremarkable. Biliary system: No evidence of biliary ductal dilatation. Gallbladder appears normal. Genitourinary: The kidneys are normal in appearance bilaterally with no evidence of hydronephrosis. Subcentimeter, too small to further characterize hypoattenuating lesion at the medial aspect of the midpole of left kidney, unchanged. No stones are appreciated. The urinary bladder is prominently distended. Gastrointestinal: The stomach is unremarkable. The small bowel is nondistended. Multiple fluid-filled loops of small bowel, primarily in the lower abdomen. Scattered retained fecal matter is seen throughout the colon. No evidence of a bowel obstruction. Appendix: Within normal limits without adjacent fat stranding. Peritoneum: Mild free fluid in the pelvis. No free air. Abdominal wall: Unremarkable. Pelvic organs: The uterus is bulky in appearance and heterogenous enhancement. Venous congestion of the uterus and ovarian veins, most prominent on the left side. Lymph nodes: No adenopathy by size criteria. Vascular structures: Visualized vascular structures appear normal. Osseous and soft tissue structures: Bone windows demonstrate no suspicious osteolytic or osteoblastic lesions. No fracture identified. Mild rightward curvature of the lumbar spine, unchanged. Mild inflammatory change in the region of the tip of coccyx, likely due to decubitus position, correlate with physical exam. IMPRESSION: 1. Multiple fluid-filled loops of small bowel, primarily in the lower abdomen. May represent early illness or ingested material. 2. The uterus is bulky in appearance and heterogenous enhancement. Venous congestion of the uterus and ovarian veins, primarily on the left side. Recommend correlation with pelvic ultrasound and consider referral to interventional radiology. 3. Mild free fluid in the pelvis. 4. Mild inflammatory change in the region of the tip of coccyx, likely due to decubitus position, correlate with physical exam. 5. The bladder is prominently distended. [facility] Radiology Study observation (narrative) [facility] CT Abdomen and Pelvis W cont rast IVOrdered By: Jamey Perez on 01-11-2024 [facility] Work Phone: Comp Metabolic Profon 2023 Albumin [Mass/Vol] 4.4 g/dL Normal 3.5-5.2 [facility] Comment on above: Performed By: #### U [facility] #### [facility] [address] [place], [place] [id number] Branch Credit Counselor: Calin Tapia MD Albumin/Glob Ratio 1.7 Normal 1.0-2.5 [facility] Comment on above: Performed By: #### U JOLLY [facility] #### [facility] [address] [place], [place] [id number] Branch Credit Counselor: Calin Tapia MD Alkaline Phos 62 U/L Normal 35-104 [facility] Comment on above: Performed By: #### U AMIC, UHCG #### [facility] [address] [place], [place] [id number] Branch Credit Counselor: Calin Tapia MD ALT [Catalytic activity/Vol] 15 U/L Normal 5-33 [facility] Comment on above: Performed By: #### U AMIC, UHCG #### [facility] [address] [place], [place] [id number] Branch Credit Counselor: Calin Tapia MD Anion gap [Moles/Vol] 12 mmol/L Normal 9-17 [facility] Comment on above: Performed By: #### U AMIC, UHCG #### [facility] [address] [place], [place] [id number] Branch Credit Counselor: Calin Tapia MD AST [Catalytic activity/Vol] 18 U/L Normal <32 [facility] Comment on above: Performed By: #### U AMIC, UHCG #### [facility] [address] [place], [place] [id number] Branch Credit Counselor: Calin Tapia MD Bilirubin [Mass/Vol] 0.4 mg/dL Normal 0.3-1.2 [facility] Comment on above: Performed By: #### U AMIC, UHCG #### [facility] [address] [place] [address] Branch Credit Counselor: Calin Tapia MD BUN/CRE Ratio 13 Normal 9-20 [facility] Comment on above: Performed By: #### U AMIC, UHCG #### [facility] [address] [place] [address] Branch Credit Counselor: Calin Tapia MD Calcium [Mass/Vol] 8.9 mg/dL Normal 8.6-10.4 [facility] Comment on above: Performed By: #### U JOLLY [facility] #### [facility] [address] [place] [address] Branch Credit Counselor: Calin Tapia MD Chloride [Moles/Vol] 102 mmol/L Normal 98-107 [facility] Comment on above: Performed By: #### U JOLLY [facility] #### [facility] [address] [place] [address] Branch Credit Counselor: Calin Tapia MD CO2 [Moles/Vol] 24 mmol/L Normal 20-31 [facility] Comment on above: Performed By: #### U JOLLY [facility] #### [facility] [address] [place] [address] Branch Credit Counselor: Calin Tapia MD Creatinine [Mass/Vol] 0.6 mg/dL Normal 0.5-0.9 [facility] Comment on above: Performed By: #### U JOLLY [facility] #### [facility] [address] [place] [address] Branch Credit Counselor: Calin Tapia MD GFR/1.73 sq M.predicted among non-blacks MDRD (S/P/Bld) [Vol rate/Area] mL/min/{1.73_m2} Normal >60 [facility] Comment on above: Result Comment: These results are not intended for use in patients <18 years of age. eGFR results are calculated without a race factor using the 2020 CKD-EPI equation. Careful clinical correlation is recommended, particularly when comparing to results calculated using previous equations. The CKD-EPI equation is less accurate in patients with extremes of muscle mass, extra-renal metabolism of creatine, excessive creatine ingestion, or following therapy that affects renal tubular secretion. Performed By: #### U AMIC, [facility] #### [facility] [address] [place] [address] Branch Credit Counselor: Calin Tapia MD Glucose [Mass/Vol] 91 mg/dL Normal 70-99 [facility] Comment on above: Performed By: #### U JOLLY [facility] #### [facility] [address] [place], [place] [id number] Branch Credit Counselor: Calin Tapia MD Potassium [Moles/Vol] 3.7 mmol/L Normal 3.7-5.3 [facility] Comment on above: Performed By: #### U AMIWalker CG #### [facility] [address] [place], [place] [id number] Branch Credit Counselor: Calin Tapia MD Protein [Mass/Vol] 7.0 g/dL Normal 6.4-8.3 [facility] Comment on above: Performed By: #### U JOLLY CG #### [facility] [address] [place], [place] [id number] Branch Credit Counselor: Calin Tapia MD Sodium [Moles/Vol] 138 mmol/L Normal 135-144 [facility] Comment on above: Performed By: #### U JOLLY [facility] #### [facility] [address] [place], [place] [id number] Branch Credit Counselor: Calin Tapia MD Urea nitrogen [Mass/Vol] 8 mg/dL Normal 6-20 [facility] Comment on above: Performed By: #### U JOLLY [facility] #### [facility] [address] [place], [place] [address] Branch Credit Counselor: Calin Tapia MD HCG Qualitative, Serumon HCG ( test) Ql Negative NEGATIVE [facility] Comment on above: Specimens with hCG l evels near the threshold of the test (25 mIU/mL) may give a negative or indeterminate result. In such cases, another test should be performed with a new specimen in 48-72 hours. If early is suspected clinically in this setting, correlation with quantitative serum b-hCG level is suggested. [facility] has confirmed the use of plasma for this test. This has not been cleared or approved by the U.S. Food and Drug Administration. The FDA has determined that such clearance is not necessary. [facility] HCG Screen, Bloodon 01-11-20 24 HCG Screen, Blood Negative Normal NEG [facility] Comment on above: Result Comment: Spec imens with hCG levels near the threshold of the test (25 mIU/mL) may give a negative or indeterminate result. In such cases, another test should be performed with a new specimen in 48-72 hours. If early is suspected clinically in this setting, correlation with quantitative serum b-hCG level is suggested. [facility] has confirmed the use of plasma for this test. This has not been cleared or approved by the U.S. Food and Drug Administration. The FDA has determined that such clearance is not necessary. Performed By: #### U AMIC, UHCG #### [facility] [address] [place] [address] Branch Credit Counselor: Calin Tapia MD Lactic Acidon 01-11-2024 Lactate (BldV) [Moles/Vol] 1.5 mmol/L 0.5 - 2.2 mmol/L [facility] Lactate [Moles/Vol] 1.5 mmol/L Normal 0.5-2.2 [facility] Comment on above: Performed By: #### T SHX #### [facility] [address] [address] Branch Credit Counselor: Calin Tapia MD Lipaseon 01-11-2024 Lipase [Catalytic activity/Vol] 22 U/L 13 - 60 U/L [facility] Lipase [Catalytic activity/Vol] 22 U/L Normal 13-60 [facility] Comment on above: Performed By: #### U HCG, UMICAO, UAX #### [facility] [address] [place] [address] Branch Credit Counselor: Calin Tapia MD No Panel Informationon 01-10 [facility] Trichomonas/Wet Prepon 01-10 Trichomonas/Wet Prep Specimen Descriptio n .VAGINA Direct Exam CLUE CELLS SEEN NO YEAST OBSERVED NO TRICHOMONAS SEEN Report Status FINAL 01/11/2024 Abnormal [facility] Comment on above: Performed By: #### U HCG, UMICAO, UAX #### [facility] [address] [place] [address] [place] [address] Branch Credit Counselor: Calin Tapia MD Urinalysis w/ Microon 2023 Bilirubin, SemiQt,Ur Negative Normal NEG [facility] Comment on above: Performed By: #### U AMIC, CG #### [address] [place], [place] [id number] Branch Credit Counselor: Calin Tapia MD Blood, Urine Negative Normal NEG [facility] Comment on above: Performed By: #### U AMIC, CG #### [address] [place], [place] [id number] Branch Credit Counselor: Calin Tapia MD Clarity (U) Clear Normal CLEAR [facility] Comment on above: Performed By: #### U AMIC, CG #### [address] [place], [place] [id number] Branch Credit Counselor: Calin Tapia MD Color (U) Yellow Normal YEL [facility] Comment on above: Performed By: #### U AMIC, UHCG #### [facility] [address] [place], [place] [id number] Branch Credit Counselor: Calin Tapia MD Epithelial cells LM Ql (Urine sed) 0 TO 2 Normal 0-25 [facility] Comment on above: Performed By: #### U AMIC, UHCG #### [facility] [address] [place] [address] Branch Credit Counselor: Calin Tapia MD Glucose Ql (U) Negative Normal NEG [facility] Comment on above: Performed By: #### U AMIC, UHCG #### [facility] [address] [place], [place] [address] Branch Credit Counselor: Calin Tapia MD Ketones Ql (U) Negative Normal NEG [facility] Comment on above: Performed By: #### U AMIC, UHCG #### [facility] [address] [place], [place] [id number] Branch Credit Counselor: Calin Tapia MD Leukocyte esterase Test strip Ql (U) Negative Normal NEG [facility] Comment on above: Performed By: #### U AMIC, UHCG #### [facility] [address] [place] [address] Dr[address] [place], [place] [id number] Branch Credit Counselor: Calin Tapia MD Nitrite,Ur Negative Normal [facility] Comment on above: Performed By: #### U AMIC, CG #### [facility] [address] [place] [address] Dr[address] [place], [place] [id number] Branch Credit Counselor: Calin Tapia MD PH,Ur 6.0 Normal 5.0-9.0 [facility] Comment on above: Performed By: #### U AMIC, UHCG #### [facility] [address] [place] [address] [place], [place] [address] Branch Credit Counselor: Calin Tapia MD Protein Ql (U) Negative Normal NEG [facility] Comment on above: Performed By: #### U AMIC, UHCG #### [facility] [address] [place] [address] Dr[address] [place], [place] [id number] Branch Credit Counselor: Calin Tapia MD Spec. [place],Ur 1.010 Normal 1.010-1.020 [facility] Comment on above: Performed By: #### U AMIC, UHCG #### [facility] [address] [place] [address] Dr[address] [place], [place] [id number] Branch Credit Counselor: Calin Tapia MD Urine RBC's None Normal 0-2 [facility] Comment on above: Performed By: #### U AMI, [facility] #### [facility] [address] [place] [address] Branch Credit Counselor: Calin Tapia MD Urine WBC's None Normal 0-5 [facility] Comment on above: Performed By: #### U AMI, [facility] #### [facility] [address] [place] [address] Branch Credit Counselor: Calin Tapia MD Urobilinogen,Ur Normal Normal 0.0-1.0 [facility] Comment on above: Performed By: #### U [facility], [facility] #### [facility] [address] [place] [address] Branch Credit Counselor: Calin Tapia MD Urinalysis with Microscopico n 01-11-2024 Bilirubin Ql (U) Negative NEGATIVE [facility] Clarity (U) Clear Clear [facility] Color (U) Yellow Yellow [facility] Epithelial cells LM.HPF (Urine sed) [#/Area] 0 TO 2 [facility] Glucose Test strip (U) [Mass/Vol] Negative NEGATIVE mg/dL [facility] Hemoglobin Auto test strip Ql (U) Negative NEGATIVE [facility] Ketones (U) [Mass/Vol] Negative NEGATIVE mg/dL [facility] Leukocyte esterase Test strip Ql (U) Negative NEGATIVE [facility] Nitrite Ql (U) Negative NEGATIVE [facility] pH (U) 6.0 [pH] 5.0 - 9.0 [facility] Protein (U) [Mass/Vol] Negative NEGATIVE mg/dL [facility] RBC LM.HPF (Urine sed) [#/Area] None [facility] Specific gravity (U) [Rel density] 1.010 1.010 - 1.020 [facility] Urobilinogen Qn (U) Normal 0.0 - 1. 0 EU/dL [facility] WBC LM.HPF (Urine sed) [#/Area] None [facility] Wet prep, genitalon 01-11-20 Interpretation and review of laboratory results Abnormal [facility] Microorganism or agent identified Nom (Unsp spec) CLUE CELLS SEEN Abnormal [facility] Microorganism or agent identified Nom (Unsp spec) NO YEAST OBSERVED [facility] Microorganism or agent identified Nom (Unsp spec) NO TRICHOMONAS SEEN [facility] Specimen Description .VAGINA [facility] Chlamydia/GC DNA, TPon 12-03 Chlamydia Probe, TP Negative Normal [facility] Comment on above: Result Comment: CHLA MYDIA TRACHOMATIS DNA not detected by nucleic acid amplification. This test is intended for medical purposes only and is not valid for the evaluation of suspected sexual abuse or for other forensic purposes. In certain contexts, culture may be required to meet applicable laws and regulations for diagnosis of C. trachomatis and N. gonorrhoeae infections. Per 2014 CDC recommendations, this test does not include confirmation of positive results by an alternative nucleic acid target. Performed By: #### C YTCGP #### [facility] [place] [id number] Branch Credit Counselor: John Mason MD Gonorrhea Probe, TP Negative Normal [facility] Comment on above: Result Comment: NEIS SERIA GONORRHOEAE DNA not detected by nucleic acid amplification. This test is intended for medical purposes only and is not valid for the evaluation of suspected sexual abuse or for other forensic purposes. In certain contexts, culture may be required to meet applicable laws and regulations for diagnosis of C. trachomatis and N. gonorrhoeae infections. Per 2014 CDC recommendations, this test does not include confirmation of positive results by an alternative nucleic acid target. Performed By: #### C YTCGP #### [facility] [place] [id number] Branch Credit Counselor: John Mason MD HPV DNA High Riskon 12-04-19 HPV Interp [facility] Comment on above: Result Comment: This test amplifies and detects DNA of 14 high-risk HPV types associated with cervical cancer and its precursor lesions (HPV types 16,18, 31, 33, 35, 39, 45, 51, 52, 56, 58, 59, 66, and 68). Sensitivity may be affected by specimen collection methods, stage of infection, and the presence of interfering substances. Results should be interpreted in conjunction with other available laboratory and clinical data. A negative high-risk HPV result does not exclude the possibility of future cytologic HSIL or underlying CIN2-3 or cancer. This test is intended for medical purposes only and is not valid for the evaluation of suspected sexual abuse or for other forensic purposes. Performed By: #### U HCG, UMICAO, UAX #### [facility] [address] [place] [address] [place], [place] [id number] Branch Credit Counselor: Calin Tapia MD HPV Type 16 Not detected [facility] Comment on above: Performed By: #### U HCG, UMICAO, UAX #### [address] [place], [place] [id number] Branch Credit Counselor: Calin Tapia MD HPV Type 18 Not detected [facility] Comment on above: Performed By: #### U HCG, UMICAO, UAX #### [address] [place] [address] Branch Credit Counselor: Calin Tapia MD Other High Risk HPV Not detected [facility] Comment on above: Performed By: #### U HCG, UMICAO, UAX #### [facility] [address] [place] [address] [place], [place] [id number] Branch Credit Counselor: Calin Tapia MD HPV DNA High Riskon 12-03-19 24 HPV Sample .THIN PREP [facility] Comment on above: Performed By: #### U HCG, UMICAO, UAX #### [facility] [address] [place] [address] [place] [address] Branch Credit Counselor: Calin Tapia MD Source CERVICAL MATERIAL [facility] Comment on above: Performed By: #### U HCG, UMICAO, UAX #### [facility] [address] [place] [address] [place] [address] Branch Credit Counselor: Calin Tapia MD Cytology Reporton 12-02-2023 Cytology report Cyto stain.thin prep Doc (Cvx/Vag) (NOTE) Path Number: [id number] DIAGNOSIS Imaged ThinPrep Pap - Cervical (1 monolayer slide): Specimen Adequacy: Satisfactory for evaluation. - Endocervical/transfor mation zone component present. Descriptive Diagnosis: Negative for intraepithelial lesion or malignancy. Comments: Specimen was screened at [facility], [facility] [address] [employer] Screener: CS Rescreened By: LR1 Electronically Signed Out FRANTZ Amin(ASCP) lr1/12/08/2023 Procedure/Addendum HPV Procedure Report Date Ordered: 12/03/2023 Status: Signed Out Date Complete: 12/04/2023 By: System Interface Date Reported: 12/04/2023 Sample: HPV Type 16 Result: Not Detected Ref Range: (Not Detected) Sample: HPV Type 18 Result: Not Detected Ref Range: (Not Detected) Sample: Other High Risk HPV Result: Not Detected Ref Range: (Not Detected) Sample: HPV Interp Result: Ref Range: (Not Detected) This test amplifies and detects DNA of 14 high-risk HPV types associated with cervical cancer and its precursor lesions (HPV types 16,18, 31, 33, 35, 39, 45, 51, 52, 56, 58, 59, 66, and 68). Sensitivity may be affected by specimen collection methods, stage of infection, and the presence of interfering substances. Results should be interpreted in conjunction with other available laboratory and clinical data. A negative high-risk HPV result does not exclude the possibility of future cytologic HSIL or underlying CIN2-3 or cancer. This test is intended for medical purposes only and is not valid for the evaluation of suspected sexual abuse or for other forensic purposes. Performed at [address] [address] ([phone] Source of Specimen: A: Imaged ThinPrep Pap - Cervical (1 monolayer slide) HPV Reflex?.............. ........HPV Regardless Clinical History LEEP: 07/30/2022 Tubal ligation: 03/2019 Z12.4 Encounter for screening for malignant neoplasm of cervix LMP: 11/13/2023 Processing Lab: [address] [address] Interpretation performed at [facility], [facility] [place] [address] This Pap Test has been evaluated with the assistance of the [employer]Prep Pap Test Imaging System. The Pap smear is a screening test primarily for squamous epithelial lesions, which is subject to both false negative and false positive results. Your patient should be reminded to consult you immediately if she experiences any suspicious signs or symptoms, regardless of her Pap smear result. GYNECOLOGIC CYTOLOGY REPORT Patient Name: SARI MOULTON [facility] Rec: [id number] [facility] ANATOMIC PATHOLOGY [address] [facility] [place], [place] [address] Normal [facility] UA w/Reflex Cultureon 2023 Bilirubin, SemiQt,Ur Negative Normal NEG [facility] Comment on above: Performed By: #### U MICAO, UAX #### [facility] [address] [place] [address] Branch Credit Counselor: Calin Tapia MD Blood, Urine Negative Normal NEG [facility] Comment on above: Performed By: #### U MICAO, UAX #### [facility] [address] [place] [address] Branch Credit Counselor: Calin Tapia MD Clarity (U) Clear Normal CLEAR [facility] Comment on above: Performed By: #### U MICAO, UAX #### [facility] [address] [place] [address] Branch Credit Counselor: Calin Tapia MD Color (U) Yellow Normal YEL [facility] Comment on above: Performed By: #### U MICAO, UAX #### [facility] [address] [place] [address] Branch Credit Counselor: Calin Tapia MD Glucose Ql (U) Negative Normal NEG [facility] Comment on above: Performed By: #### U MICAO, UAX #### [facility] [address] [place], [place] 0200483 Branch Credit Counselor: Calin Tapia MD Ketones Ql (U) Negative Normal NEG [facility] Comment on above: Performed By: #### U MICAO, UAX #### [facility] [address] [place], [place] [id number] Branch Credit Counselor: Calin Tapia MD Leukocyte esterase Test strip Ql (U) Negative Normal NEG [facility] Comment on above: Performed By: #### U MICAO, UAX #### [address] [place], [place] [address]83 Branch Credit Counselor: Calin Tapia MD Nitrite,Ur Negative Normal [facility] Comment on above: Performed By: #### U MICAO, UAX #### [facility] [address] [place] [address] Branch Credit Counselor: Calin Tapia MD PH,Ur 7.0 Normal 5.0-9.0 [facility] Comment on above: Performed By: #### U MICAO, UAX #### [facility] [address] [place] [address] Dr. [place], [place] [address]83 Branch Credit Counselor: Calin Tapia MD Protein Ql (U) Negative Normal NEG [facility] Comment on above: Performed By: #### U MICAO, UAX #### [facility] [address] [place], [place] 0897183 Branch Credit Counselor: Calin Tapia MD Spec. Wellington,Ur 1.020 Normal 1.010-1.020 [facility] Comment on above: Performed By: #### U MICAO, UAX #### [facility] [address] [place], [place] [address]83 Branch Credit Counselor: Calin Tapia MD Urobilinogen,Ur Normal Normal 0.0-1.0 [facility] Comment on above: Performed By: #### U MICAO, UAX #### [facility] [address] [place], [place] 3708283 Branch Credit Counselor: Calin Tapia MD Urinalysis,Microon Amorphous sediment LM Ql (Urine sed) TRACE Abnormal NONE [facility] Comment on above: Performed By: #### U MICAO, UAX #### [facility] [address] [place], [place] [address]83 Branch Credit Counselor: Calin Tapia MD Bacteria 1+ Abnormal NONE [facility] Comment on above: Performed By: #### U MICAO, UAX #### [facility] [address] [place], [place] 4787483 Branch Credit Counselor: Calin Tapia MD Epithelial cells LM Ql (Urine sed) 0 TO 2 Normal 0-25 [facility] Comment on above: Performed By: #### U MICAO, UAX #### [facility] [address] [place], [place] [address]83 Branch Credit Counselor: Calin Tapia MD Urine RBC's None Normal 0-2 [facility] Comment on above: Performed By: #### U MICAO, UAX #### [facility] [address] [place], [place] [address]83 Branch Credit Counselor: Calin Tapia MD Urine WBC's 0 TO 2 Normal 0-5 [facility] Comment on above: Performed By: #### U MICAO, UAX #### [facility] [address] [place], [place] [address]3 Branch Credit Counselor: Calin Tapia MD HCG, ,Urineon 11-30 Beta HCG ( test) Ql (U) Negative Normal NEG [facility] Comment on above: Result Comment: Spec imens with hCG levels near the threshold of the test (25 mIU/mL) may give a negative or indeterminate result. In such cases, another test should be performed with a new specimen in 48-72 hours. If early is suspected clinically in this setting, correlation with quantitative serum b-hCG level is suggested. [facility] has confirmed the use of plasma for this test. This has not been cleared or approved by the U.[place]. Food and Drug Administration. The FDA has determined that such clearance is not necessary. Performed By: #### U HCG, UMICAO, UAX #### [address] [place] [address] Branch Credit Counselor: Calin Tapia MD UA w/Reflex Cultureon 2023 Bilirubin, SemiQt,Ur Negative Normal NEG [facility] Comment on above: Performed By: #### U HCG, UMICAO, UAX #### [address] [place] [address] Branch Credit Counselor: Calin Tapia MD Blood, Urine Negative Normal NEG [facility] Comment on above: Performed By: #### U HCG, UMICAO, UAX #### [address] [place] [address] Branch Credit Counselor: Calin Tapia MD Clarity (U) SLIGHTLY CLOUDY Abnormal CLEAR [facility] Comment on above: Performed By: #### U HCG, UMICAO, UAX #### [address] [place] [address] Branch Credit Counselor: Calin Tapia MD Color (U) Yellow Normal YEL [facility] Comment on above: Performed By: #### U HCG, UMICAO, UAX #### [address] [place] [address] Branch Credit Counselor: Calin Tpaia MD Glucose Ql (U) Negative Normal NEG [facility] Comment on above: Performed By: #### U HCG, UMICAO, UAX #### [address] [place] [facility]83 Branch Credit Counselor: Calin Tapia MD Ketones Ql (U) Negative Normal NEG [facility] Comment on above: Performed By: #### U HCG, UMICAO, UAX #### [facility] [address] [place], [place] [address]83 Branch Credit Counselor: Calin Tapia MD Leukocyte esterase Test strip Ql (U) TRACE Abnormal NEG [facility] Comment on above: Performed By: #### U HCG, UMICAO, UAX #### [facility] [address] [place], [place] [address]83 Branch Credit Counselor: Calin Tapia MD Nitrite,Ur Negative Normal NEG [facility] Comment on above: Performed By: #### U HCG, UMICAO, UAX #### [facility] [address] [place] [address] Dr. [place], [facility] Branch Credit Counselor: Calin Tapia MD PH,Ur 7.5 Normal 5.0-9.0 [facility] Comment on above: Performed By: #### U HCG, UMICAO, UAX #### [facility] [address] [place] [address] Dr. [place], [facility] Branch Credit Counselor: Calin Tapia MD Protein Ql (U) Negative Normal NEG [facility] Comment on above: Performed By: #### U HCG, UMICAO, UAX #### [facility] [address] [place] [address] Dr. [place], [facility] Branch Credit Counselor: Calin Tapia MD Spec. [place],Ur 1.015 Normal 1.010-1.020 [facility] Comment on above: Performed By: #### U HCG, UMICAO, UAX #### [facility] [address] [place] [address] Branch Credit Counselor: Calin Tapia MD Urobilinogen,Ur Normal Normal 0.0-1.0 [facility] Comment on above: Performed By: #### U HCG, UMICAO, UAX #### [facility] [address] [place] [address] Branch Credit Counselor: Calin Tapia MD Urinalysis,Microon 4 Amorphous sediment LM Ql (Urine sed) 3+ Abnormal NONE [facility] Comment on above: Performed By: #### U HCG, UMICAO, UAX #### [facility] [address] [place], [facility] Branch Credit Counselor: Calin Tapia MD Bacteria TRACE Abnormal NONE [facility] Comment on above: Performed By: #### U HCG, UMICAO, UAX #### [address] [place], [facility]83 Branch Credit Counselor: Calin Tapia MD Epithelial cells LM Ql (Urine sed) 5 TO 10 Normal 0-25 [facility] Comment on above: Performed By: #### U HCG, UMICAO, UAX #### [facility] [address] [place], [place] [address]83 Branch Credit Counselor: Calin Tapia MD Urine RBC's 0 TO 2 Normal 0-2 [facility] Comment on above: Performed By: #### U HCG, UMICAO, UAX #### [facility] [address] [place] [address] [place] [address] Branch Credit Counselor: Calin Tapia MD Urine WBC's 2 TO 5 Normal 0-5 [facility] Comment on above: Performed By: #### U HCG, UMICAO, UAX #### [facility] [address] [place] [address] Branch Credit Counselor: Calin Tapia MD Basic Metabolic Profon 11-29 Anion gap [Moles/Vol] 9 mmol/L Normal 9-17 [facility] Comment on above: Performed By: #### U HCG, UMICAO, UAX #### [facility] [address] [place], [place] [address]50383 Branch Credit Counselor: Calin Tapia MD BUN/CRE Ratio 17 Normal 9-20 [facility] Comment on above: Performed By: #### U HCG, UMICAO, UAX #### [facility] [address] [place], [place] [address]83 Branch Credit Counselor: Calin Tapia MD Calcium [Mass/Vol] 9.0 mg/dL Normal 8.6-10.4 [facility] Comment on above: Performed By: #### U HCG, UMICAO, UAX #### [facility] [address] [place], [place] [address]83 Branch Credit Counselor: Calin Tapia MD Chloride [Moles/Vol] 106 mmol/L Normal 98-107 [facility] Comment on above: Performed By: #### U HCG, UMICAO, UAX #### [facility] [address] [place], [place] [address]89783 Branch Credit Counselor: Calin Tapia MD CO2 [Moles/Vol] 24 mmol/L Normal 20-31 [facility] Comment on above: Performed By: #### U HCG, UMICAO, UAX #### [facility] [address] [place] [address] Branch Credit Counselor: Calin Tapia MD Creatinine [Mass/Vol] 0.7 mg/dL Normal 0.5-0.9 [facility] Comment on above: Performed By: #### U HCG, UMICAO, UAX #### [facility] [address] [place] [address] Branch Credit Counselor: Calin Tapia MD GFR/1.73 sq M.predicted among non-blacks MDRD (S/P/Bld) [Vol rate/Area] mL/min/{1.73_m2} Normal >60 [facility] Comment on above: Result Comment: These results are not intended for use in patients <18 years of age. eGFR results are calculated without a race factor using the 2020 CKD-EPI equation. Careful clinical correlation is recommended, particularly when comparing to results calculated using previous equations. The CKD-EPI equation is less accurate in patients with extremes of muscle mass, extra-renal metabolism of creatine, excessive creatine ingestion, or following therapy that affects renal tubular secretion. Performed By: #### U HCG, UMICAO, UAX #### [facility] [address] [place], [place] [id number] Branch Credit Counselor: Calin Tapia MD Glucose [Mass/Vol] 84 mg/dL Normal 70-99 [facility] Comment on above: Performed By: #### U HCG, UMICAO, UAX #### [facility] [address] [place] [address] [place] [address] Branch Credit Counselor: Calin Tapia MD Potassium [Moles/Vol] 4.3 mmol/L Normal 3.7-5.3 [facility] Comment on above: Performed By: #### U HCG, UMICAO, UAX #### [facility] [address] [place] [address] Dr. [place], [place] 4688683 Branch Credit Counselor: Calin Tapia MD Sodium [Moles/Vol] 139 mmol/L Normal 135-144 [facility] Comment on above: Performed By: #### U HCG, UMICAO, UAX #### [facility] [address] [place] [address] Dr. [place], [facility] Branch Credit Counselor: Calin Tapia MD Urea nitrogen [Mass/Vol] 12 mg/dL Normal 6-20 [facility] Comment on above: Performed By: #### U HCG, UMICAO, UAX #### [facility] [address] [place] [address] Branch Credit Counselor: Calin Tapia MD CBC with Diffon 11-30-2023 Abs. Basophil 0.10 k/uL Normal 0.00-0.20 [facility] Comment on above: Performed By: #### U HCG, UMICAO, UAX #### [facility] [address] [place], [place] [address] Branch Credit Counselor: Calin Tapia MD Abs.Imm.Granulocyte <0.03 Normal 0.00-0.30 [facility] Comment on above: Performed By: #### U HCG, UMICAO, UAX #### [facility] [address] [place], [facility] Branch Credit Counselor: Calin Tapia MD Abs.Neutrophil (Seg) 3.81 k/uL Normal 1.50-8.10 [facility] Comment on above: Performed By: #### U HCG, UMICAO, UAX #### [address] [place] [address] Branch Credit Counselor: Calin Tapia MD Basophils/100 WBC (Bld) 1 % Normal 0-2 [facility] Comment on above: Performed By: #### U HCG, UMICAO, UAX #### [address] [place], [facility]83 Branch Credit Counselor: Calin Tapia MD Eosinophils (Bld) [#/Vol] 0.29 10*3/uL Normal 0.00-0.44 [facility] Comment on above: Performed By: #### U HCG, UMICAO, UAX #### [address] [place], [place] [address] Branch Credit Counselor: Calin Tapia MD Eosinophils/100 WBC (Bld) 4 % Normal 1-4 [facility] Comment on above: Performed By: #### U HCG, UMICAO, UAX #### [address] [place] [id number] Branch Credit Counselor: Calin Tapia MD Erythrocyte distribution width (RBC) [Ratio] 12.0 % Normal 11.8-14.4 [facility] Comment on above: Performed By: #### U HCG, UMICAO, UAX #### [facility] [address] [place], [facility] Branch Credit Counselor: Calin Tapia MD Hematocrit (Bld) [Volume fraction] 35.5 % Low 36.3-47.1 [facility] Comment on above: Performed By: #### U HCG, UMICAO, UAX #### [facility] [address] [place], [facility]83 Branch Credit Counselor: Calin Tapia MD Hemoglobin (Bld) [Mass/Vol] 12.3 g/dL Normal 11.9-15.1 [facility] Comment on above: Performed By: #### U HCG, UMICAO, UAX #### [facility] [address] [place], [facility] Branch Credit Counselor: Calin Tapia MD Immature granulocytes/100 WBC (Bld) 0 % Normal 0 [facility] Comment on above: Performed By: #### U HCG, UMICAO, UAX #### [address] [place], [facility]83 Branch Credit Counselor: Calin Tapia MD Lymphocytes (Bld) [#/Vol] 3.35 10*3/uL Normal 1.10-3.70 [facility] Comment on above: Performed By: #### U HCG, UMICAO, UAX #### [address] [place], [place] [address] Branch Credit Counselor: Calin Tapia MD Lymphocytes/100 WBC (Bld) 41 % Normal 24-43 [facility] Comment on above: Performed By: #### U HCG, UMICAO, UAX #### [address] [place] [id number] Branch Credit Counselor: Calin Tapia MD MCH (RBC) [Entitic mass] 33.0 pg Normal 25.2-33.5 [facility] Comment on above: Performed By: #### U HCG, UMICAO, UAX #### [facility] [address] [place] [address] Branch Credit Counselor: Calin Tapia MD MCHC (RBC) [Mass/Vol] 34.6 g/dL Normal 28.4-34.8 [facility] Comment on above: Performed By: #### U HCG, UMICAO, UAX #### [facility] [address] [place], [place] [address] Branch Credit Counselor: Calin Tapia MD MCV (RBC) [Entitic vol] 95.2 fL Normal 82.6-102.9 [facility] Comment on above: Performed By: #### U HCG, UMICAO, UAX #### [facility] [address] [place], [facility] Branch Credit Counselor: Calin Tapia MD Monocytes (Bld) [#/Vol] 0.67 10*3/uL Normal 0.10-1.20 [facility] Comment on above: Performed By: #### U HCG, UMICAO, UAX #### [facility] [address] [place], [facility] Branch Credit Counselor: Calin Tapia MD Monocytes/100 WBC (Bld) 8 % Normal 3-12 [facility] Comment on above: Performed By: #### U HCG, UMICAO, UAX #### [facility] [address] [place], [place] [address] Branch Credit Counselor: Calin Tapia MD Neutrophil (Seg) 46 % Normal 36-65 [facility] Comment on above: Performed By: #### U HCG, UMICAO, UAX #### [facility] [address] [place], [place] [address]88683 Branch Credit Counselor: Calin Tapia MD NRBC Automated 0.0 per 100 WBC Normal 0.0 [facility] Comment on above: Performed By: #### U HCG, UMICAO, UAX #### [facility] [address] [place] [address] [place] [address] Branch Credit Counselor: Calin Tapia MD Platelet mean volume (Bld) [Entitic vol] 9.3 fL Normal 8.1-13.5 [facility] Comment on above: Performed By: #### U HCG, UMICAO, UAX #### [facility] [address] [place], [place] 2595783 Branch Credit Counselor: Calin Tapia MD Platelets (Bld) [#/Vol] 236 10*3/uL Normal 138-453 [facility] Comment on above: Performed By: #### U HCG, UMICAO, UAX #### [address] [place], [place] 0507383 Branch Credit Counselor: Calin Tapia MD RBC (Bld) [#/Vol] 3.73 10*6/uL Low 3.95-5.11 [facility] Comment on above: Performed By: #### U HCG, UMICAO, UAX #### [address] [place], [place] 130[address]283 Branch Credit Counselor: Calin Tapia MD WBC (Bld) [#/Vol] 8.2 10*3/uL Normal 3.5-11.3 [facility] Comment on above: Performed By: #### U HCG, UMICAO, UAX #### [address] [place], [facility] Branch Credit Counselor: Calin Tapia MD TSH w/reflex to FT4on 2023 Thyroid Stim. Horm. 4.71 uIU/mL Normal 0.30-5.00 [facility] Comment on above: Performed By: #### T SHX #### [address] [place], [place] 732[address]83 Branch Credit Counselor: Calin Tapia MD NM HEPATOBILIARY SCAN W PHAR MACOLOGICAL INTERVENTIONon 11-24-2023 NM HEPATOBILIARY SCAN W PHARMACOLOGICAL INTERVENTION EXAMINATION: NUCLEAR MEDICINE HEPATOBILIARY SCINTIGRAPHY (HIDA SCAN) WITH EJECTION FRACTION. TECHNIQUE: Approximately 5.1 millicuries Tc99m Mebrofenin (Choletec) was administered IV. Then, dynamic images of the abdomen were obtained in the anterior projection for 75 mins. Slow infusion of 1 mcg cholecystokinin was administered intravenously over 30-60 mins. Images were obtained in the ROMANSH projection and regions of interest were drawn around the gallbladder and ejection fraction was calculated. COMPARISON: No prior for comparison. HISTORY: ORDERING SYSTEM PROVIDED HISTORY: Biliary dyskinesia TECHNOLOGIST PROVIDED HISTORY: Is the patient ?->No Reason for Exam: abdomen pain FINDINGS: Prompt, homogenous uptake by the liver is noted with normal appearance of radiotracer excretion into the biliary system. Clearance of bloodpool activity appears appropriate. Gallbladder and small bowel is visualized in appropriate sequence and time. Gallbladder ejection fraction measured 79%. Normal value is >38% for CCK protocol and >33% for Ensure protocol. Note, Ensure normal range is based on a limited study. IMPRESSION: No acute cholecystitis. Gallbladder ejection fraction is 79%. Interpreted by: Carlos Kelley MD Signed by: Carlos Kelley MD 11/24/23 Final result Normal [facility] H. pylori Antigenon 11-19-19 H. pylori Antigen Specimen Description .FECES Direct Exam NEGATIVE Report Status FINAL 11/19/2023 Normal [facility] Comment on above: Performed By: #### U HCG, UMICAO, UAX #### [facility] [address] [place] [address] Branch Credit Counselor: Calin Tapia MD Basic Metabolic Profon 11-10 Anion gap [Moles/Vol] 12 mmol/L Normal 04-19 [facility] Comment on above: Performed By: #### U HCG, UMICAO, UAX #### [facility] [facility] [address] [place] [address] Branch Credit Counselor: Calin Tapia MD BUN/CRE Ratio 16 Normal 04-22 [facility] Comment on above: Performed By: #### U HCG, UMICAO, UAX #### [facility] [address] [place] [id number] Branch Credit Counselor: Calin Tapia MD Calcium [Mass/Vol] 9.6 mg/dL Normal 8.6-10.4 [facility] Comment on above: Performed By: #### U HCG, UMICAO, UAX #### [facility] [address] [place], [place] [id number] Branch Credit Counselor: Calin Tapia MD Chloride [Moles/Vol] 104 mmol/L Normal 98-107 [facility] Comment on above: Performed By: #### U HCG, UMICAO, UAX #### [facility] [address] [place] [address] Branch Credit Counselor: Calin Tapia MD CO2 [Moles/Vol] 23 mmol/L Normal 20-31 [facility] Comment on above: Performed By: #### U HCG, UMICAO, UAX #### [facility] [address] [place], [facility] Branch Credit Counselor: Calin Tapia MD Creatinine [Mass/Vol] 0.5 mg/dL Normal 0.5-0.9 [facility] Comment on above: Performed By: #### U HCG, UMICAO, UAX #### [facility] [address] [place], [place] [id number] Branch Credit Counselor: Calin Tapia MD GFR/1.73 sq M.predicted among non-blacks MDRD (S/P/Bld) [Vol rate/Area] mL/min/{1.73_m2} Normal >60 [facility] Comment on above: Result Comment: These results are not intended for use in patients <18 years of age. eGFR results are calculated without a race factor using the 2020 CKD-EPI equation. Careful clinical correlation is recommended, particularly when comparing to results calculated using previous equations. The CKD-EPI equation is less accurate in patients with extremes of muscle mass, extra-renal metabolism of creatine, excessive creatine ingestion, or following therapy that affects renal tubular secretion. Performed By: #### U HCG, UMICAO, UAX #### [facility] [address] [place], [place] 401[address]83 Branch Credit Counselor: Calin Tapia MD Glucose [Mass/Vol] 111 mg/dL High 70-99 [facility] Comment on above: Performed By: #### U HCG, UMICAO, UAX #### [facility] [address] [place], [place] [id number] Branch Credit Counselor: Calin Tapia MD Potassium [Moles/Vol] 4.2 mmol/L Normal 3.7-5.3 [facility] Comment on above: Performed By: #### U HCG, UMICAO, UAX #### [facility] [address] [place], [place] 9197083 Branch Credit Counselor: Calin Tapia MD Sodium [Moles/Vol] 139 mmol/L Normal 135-144 [facility] Comment on above: Performed By: #### U HCG, UMICAO, UAX #### [facility] [address] [place], [place] [id number] Branch Credit Counselor: Calin Tapia MD Urea nitrogen [Mass/Vol] 8 mg/dL Normal 6-20 [facility] Comment on above: Performed By: #### U HCG, UMICAO, UAX #### [facility] [address] [place], [place] 138[address] Branch Credit Counselor: Calin Tapia MD CBC with Diffon 11-11-2023 Abs. Basophil <0.03 Normal 0.00-0.20 [facility] Comment on above: Performed By: #### U HCG, UMICAO, UAX #### [facility] [address] [place] [address] Branch Credit Counselor: Calin Tapia MD Abs. Eosinophil <0.03 Normal 0.00-0.44 [facility] Comment on above: Performed By: #### U HCG, UMICAO, UAX #### [facility] [address] [place] [address] Dr. [place], [place] [id number] Branch Credit Counselor: Calin Tapia MD Abs.Imm.Granulocyte 0.04 k/uL Normal 0.00-0.30 [facility] Comment on above: Performed By: #### U HCG, UMICAO, UAX #### [address] [place], [place] [id number] Branch Credit Counselor: Calin Tapia MD Abs.Neutrophil (Seg) 7.69 k/uL Normal 1.50-8.10 [facility] Comment on above: Performed By: #### U HCG, UMICAO, UAX #### [address] [place], [place] [id number] Branch Credit Counselor: Calin Tapia MD Basophils/100 WBC (Bld) 0 % Normal 0-2 [facility] Comment on above: Performed By: #### U HCG, UMICAO, UAX #### [address] [place], [facility]83 Branch Credit Counselor: Calin Tapia MD Eosinophils/100 WBC (Bld) 0 % Low 1-4 [facility] Comment on above: Performed By: #### U HCG, UMICAO, UAX #### [address] [place], [facility]83 Branch Credit Counselor: Calin Tapia MD Erythrocyte distribution width (RBC) [Ratio] 12.0 % Normal 11.8-14.4 [facility] Comment on above: Performed By: #### U HCG, UMICAO, UAX #### [address] [place] [address] Branch Credit Counselor: Calin Tapia MD Hematocrit (Bld) [Volume fraction] 34.7 % Low 36.3-47.1 [facility] Comment on above: Performed By: #### U HCG, UMICAO, UAX #### [address] [place], [place] [address]3 Branch Credit Counselor: Calin Tapia MD Hemoglobin (Bld) [Mass/Vol] 12.2 g/dL Normal 11.9-15.1 [facility] Comment on above: Performed By: #### U HCG, UMICAO, UAX #### [facility] [address] [place], [place] [address] Branch Credit Counselor: Calin Tapia MD Immature granulocytes/100 WBC (Bld) 0 % Normal 0 [facility] Comment on above: Performed By: #### U HCG, UMICAO, UAX #### [facility] [address] [place], [facility]83 Branch Credit Counselor: Calin Tapia MD Lymphocytes (Bld) [#/Vol] 1.60 10*3/uL Normal 1.10-3.70 [facility] Comment on above: Performed By: #### U HCG, UMICAO, UAX #### [facility] [address] [place], [facility]83 Branch Credit Counselor: Calin Tapia MD Lymphocytes/100 WBC (Bld) 17 % Low 24-43 [facility] Comment on above: Performed By: #### U HCG, UMICAO, UAX #### [facility] [address] [place] [address] Dr. [place], [facility]83 Branch Credit Counselor: Calin Tapia MD MCH (RBC) [Entitic mass] 33.5 pg Normal 25.2-33.5 [facility] Comment on above: Performed By: #### U HCG, UMICAO, UAX #### [facility] [address] [place], [place] 101[address]83 Branch Credit Counselor: Calin Tapia MD MCHC (RBC) [Mass/Vol] 35.2 g/dL High 28.4-34.8 [facility] Comment on above: Performed By: #### U HCG, UMICAO, UAX #### [facility] [address] [place], [place] [id number] Branch Credit Counselor: Calin Tapia MD MCV (RBC) [Entitic vol] 95.3 fL Normal 82.6-102.9 [facility] Comment on above: Performed By: #### U HCG, UMICAO, UAX #### [facility] [address] [place], [place] 488[address]383 Branch Credit Counselor: Calin Tapia MD Monocytes (Bld) [#/Vol] 0.32 10*3/uL Normal 0.10-1.20 [facility] Comment on above: Performed By: #### U HCG, UMICAO, UAX #### [address] [place], [place] [id number] Branch Credit Counselor: Calin Tapia MD Monocytes/100 WBC (Bld) 3 % Normal 3-12 [facility] Comment on above: Performed By: #### U HCG, UMICAO, UAX #### [address] [place], [place] [address]83 Branch Credit Counselor: Calin Tapia MD Neutrophil (Seg) 80 % High 36-65 [facility] Comment on above: Performed By: #### U HCG, UMICAO, UAX #### [address] [place], [place] 3532483 Branch Credit Counselor: Calin Tapia MD NRBC Automated 0.0 per 100 WBC Normal 0.0 [facility] Comment on above: Performed By: #### U HCG, UMICAO, UAX #### [address] [place], [place] [address]83 Branch Credit Counselor: Calin Tapia MD Platelet mean volume (Bld) [Entitic vol] 9.7 fL Normal 8.1-13.5 [facility] Comment on above: Performed By: #### U HCG, UMICAO, UAX #### [address] [place], [place] 7970483 Branch Credit Counselor: Calin Tapia MD Platelets (Bld) [#/Vol] 279 10*3/uL Normal 138-453 [facility] Comment on above: Performed By: #### U HCG, UMICAO, UAX #### [facility] [address] [place], [place] 0437383 Branch Credit Counselor: Calin Tapia MD RBC (Bld) [#/Vol] 3.64 10*6/uL Low 3.95-5.11 [facility] Comment on above: Performed By: #### U HCG, [facility], UAX #### [facility] [address] [place], [place] 332[address]83 Branch Credit Counselor: Calin Tapia MD WBC (Bld) [#/Vol] 9.7 10*3/uL Normal 3.5-11.3 [facility] Comment on above: Performed By: #### U HCG, [facility], UAX #### [facility] [address] [place], [place] 295[address]283 Branch Credit Counselor: Calin Tapia MD CT HEAD WO CONTRASTon 2023 CT HEAD WO CONTRAST EXAMINATION: CT OF THE HEAD WITHOUT CONTRAST 11/11/2023 7:37 pm TECHNIQUE: CT of the head was performed without the administration of intravenous contrast. Automated exposure control, iterative reconstruction, and/or weight based adjustment of the mA/kV was utilized to reduce the radiation dose to as low as reasonably achievable. COMPARISON: None. HISTORY: ORDERING SYSTEM PROVIDED HISTORY: continual brain fog, headaches and fever. New vision changes. TECHNOLOGIST PROVIDED HISTORY: continual brain fog, headaches and fever. New vision changes. Decision Support Exception - unselect if not a suspected or confirmed emergency medical condition->Emergency Medical Condition (MA) Is the patient ?->No FINDINGS: BRAIN/VENTRICLES: There is no acute intracranial hemorrhage, mass effect or midline shift. No abnormal extra-axial fluid collection. The lawrence-white differentiation is maintained without evidence of an acute infarct. There is no evidence of hydrocephalus. ORBITS: The visualized portion of the orbits demonstrate no acute abnormality. SINUSES: The visualized paranasal sinuses and mastoid air cells demonstrate no acute abnormality. SOFT TISSUES/SKULL: No acute abnormality of the visualized skull or soft tissues. IMPRESSION: No acute intracranial abnormality. Interpreted by: Saran Naik MD Signed by: Saran Naik MD 11/11/23 Final result Normal [facility] CT SOFT TISSUE NECK W CONTRA STon 11-11-2023 CT SOFT TISSUE NECK W CONTRAST EXAMINATION: CT OF THE NECK SOFT TISSUE WITH CONTRAST 11/11/2023 TECHNIQUE: CT of the neck was performed with the administration of intravenous contrast. Multiplanar reformatted images are provided for review. Automated exposure control, iterative reconstruction, and/or weight based adjustment of the mA/kV was utilized to reduce the radiation dose to as low as reasonably achievable. COMPARISON: None. HISTORY: ORDERING SYSTEM PROVIDED HISTORY: continual fevers, brain fog and headaches. No know cause TECHNOLOGIST PROVIDED HISTORY: continual fevers, brain fog and headaches. No know cause Additional Contrast?->1 FINDINGS: PHARYNX/LARYNX: There is mild prominence of the bilateral palatine and lingual tonsils, likely related to inflammatory changes. The tongue is normal in appearance. The valleculae, epiglottis, aryepiglottic folds and pyriform sinuses appear unremarkable. The true and false vocal cords are normal in appearance. No mass or abscess is seen. SALIVARY GLANDS/THYROID: The parotid and submandibular glands appear unremarkable. The thyroid gland appears unremarkable. LYMPH NODES: No cervical or supraclavicular lymphadenopathy is seen. SOFT TISSUES: No appreciable soft tissue swelling or mass is seen. BRAIN/ORBITS/SINUSES: The visualized portion of the intracranial contents appear unremarkable. The visualized portion of the orbits, paranasal sinuses and mastoid air cells demonstrate no acute abnormality. LUNG APICES/SUPERIOR MEDIASTINUM: No focal consolidation is seen within the visualized lung apices. No superior mediastinal lymphadenopathy or mass. The visualized portion of the trachea appears unremarkable. BONES: No aggressive appearing lytic or blastic bony lesion. IMPRESSION: No acute abnormality of the soft tissue structures of the neck. Interpreted by: Daniele Neves MD Signed by: Daniele Neves MD 11/11/23 Final result Normal [facility] Liver Profileon 11-11-2023 Albumin [Mass/Vol] 4.6 g/dL Normal 3.5-5.2 [facility] Comment on above: Performed By: #### U HCG, UMICAO, UAX #### [facility] [address] [place], [place] [address]83 Branch Credit Counselor: Calin Tapia MD Albumin/Glob Ratio 2.0 Normal 1.0-2.5 [facility] Comment on above: Performed By: #### U HCG, UMICAO, UAX #### [facility] [address] [place], [place] [address]83 Branch Credit Counselor: Calin Tapia MD Alkaline Phos 44 U/L Normal 35-104 [facility] Comment on above: Performed By: #### U HCG, UMICAO, UAX #### [facility] [address] [place], [place] 3986683 Branch Credit Counselor: Calin Tapia MD ALT [Catalytic activity/Vol] 16 U/L Normal 5-33 [facility] Comment on above: Performed By: #### U HCG, UMICAO, UAX #### [facility] [address] [place], [place] [address]75283 Branch Credit Counselor: Calin Tapia MD AST [Catalytic activity/Vol] 17 U/L Normal <32 [facility] Comment on above: Performed By: #### U HCG, UMICAO, UAX #### [facility] [address] [place], [place] [address]35783 Branch Credit Counselor: Calin Tapia MD Bilirubin [Mass/Vol] 0.3 mg/dL Normal 0.3-1.2 [facility] Comment on above: Performed By: #### U HCG, UMICAO, UAX #### [facility] [address] [place], [place] 1474183 Branch Credit Counselor: Calin Tapia MD Bilirubin, Indirect Can not be calculated Normal 0.0-1 .0 [facility] Comment on above: Performed By: #### U HCG, UMICAO, UAX #### [facility] [address] [place] [address] Branch Credit Counselor: Calin Tapia MD Bilirubin.indirect [Mass/Vol] mg/dL Normal <0.3 [facility] Comment on above: Performed By: #### U HCG, UMICAO, UAX #### [facility] [address] [place] [address] Branch Credit Counselor: Calin Tapia MD Protein [Mass/Vol] 6.9 g/dL Normal 6.4-8.3 [facility] Comment on above: Performed By: #### U HCG, UMICAO, UAX #### [facility] [address] [place] [address] Branch Credit Counselor: Calin Tapia MD Magnesiumon 11-11-2023 Magnesium [Mass/Vol] 2.1 mg/dL Normal 1.6-2.6 [facility] Comment on above: Performed By: #### U HCG, UMICAO, UAX #### [facility] [address] [place], [place] [id number] Branch Credit Counselor: Calin Tapia MD CBC with Diffon 11-08-2023 Abs. Basophil 0.05 k/uL Normal 0.00-0.20 [facility] Comment on above: Performed By: #### U HCG, UMICAO, UAX #### [facility] [address] [place] [address] Branch Credit Counselor: Calin Tapia MD Abs.Imm.Granulocyte <0.03 Normal 0.00-0.30 [facility] Comment on above: Performed By: #### U HCG, UMICAO, UAX #### [facility] [address] [place], [place] 4377483 Branch Credit Counselor: Calin Tapia MD Abs.Neutrophil (Seg) 4.54 k/uL Normal 1.50-8.10 [facility] Comment on above: Performed By: #### U HCG, UMICAO, UAX #### [facility] [address] [place], [facility]83 Branch Credit Counselor: Calin Tapia MD Basophils/100 WBC (Bld) 1 % Normal 0-2 [facility] Comment on above: Performed By: #### U HCG, UMICAO, UAX #### [facility] [address] [place], [facility]83 Branch Credit Counselor: Calin Tapia MD Eosinophils (Bld) [#/Vol] 0.15 10*3/uL Normal 0.00-0.44 [facility] Comment on above: Performed By: #### U HCG, UMICAO, UAX #### [facility] [address] [place], [facility]83 Branch Credit Counselor: Calin Tapia MD Eosinophils/100 WBC (Bld) 2 % Normal 1-4 [facility] Comment on above: Performed By: #### U HCG, UMICAO, UAX #### [address] [place], [facility]83 Branch Credit Counselor: Calin Tapia MD Erythrocyte distribution width (RBC) [Ratio] 11.9 % Normal 11.8-14.4 [facility] Comment on above: Performed By: #### U HCG, UMICAO, UAX #### [facility] [address] [place] [address] Dr. [place], [facility]83 Branch Credit Counselor: Calin Tapia MD Hematocrit (Bld) [Volume fraction] 42.0 % Normal 36.3-47.1 [facility] Comment on above: Performed By: #### U HCG, UMICAO, UAX #### [facility] [address] [place] [address] Branch Credit Counselor: Calin Tapia MD Hemoglobin (Bld) [Mass/Vol] 14.8 g/dL Normal 11.9-15.1 [facility] Comment on above: Performed By: #### U HCG, UMICAO, UAX #### [facility] [address] [place], [place] [address]83 Branch Credit Counselor: Calin Tapia MD Immature granulocytes/100 WBC (Bld) 0 % Normal 0 [facility] Comment on above: Performed By: #### U HCG, UMICAO, UAX #### [facility] [address] [place], [place] [address]83 Branch Credit Counselor: Calin Tapia MD Lymphocytes (Bld) [#/Vol] 1.56 10*3/uL Normal 1.10-3.70 [facility] Comment on above: Performed By: #### U HCG, UMICAO, UAX #### [facility] [address] [place], [place] 555[address] Branch Credit Counselor: Calin Tapia MD Lymphocytes/100 WBC (Bld) 23 % Low 24-43 [facility] Comment on above: Performed By: #### U HCG, UMICAO, UAX #### [facility] [address] [place], [place] 877[address]83 Branch Credit Counselor: Calin Tapia MD MCH (RBC) [Entitic mass] 33.2 pg Normal 25.2-33.5 [facility] Comment on above: Performed By: #### U HCG, UMICAO, UAX #### [facility] [address] [place], [facility]83 Branch Credit Counselor: Calin Tapia MD MCHC (RBC) [Mass/Vol] 35.2 g/dL High 28.4-34.8 [facility] Comment on above: Performed By: #### U HCG, UMICAO, UAX #### [facility] [address] [place] [address] Branch Credit Counselor: Calin Tapia MD MCV (RBC) [Entitic vol] 94.2 fL Normal 82.6-102.9 [facility] Comment on above: Performed By: #### U HCG, UMICAO, UAX #### [facility] [address] [place], [place] [address]27[address] Branch Credit Counselor: Calin Tapia MD Monocytes (Bld) [#/Vol] 0.46 10*3/uL Normal 0.10-1.20 [facility] Comment on above: Performed By: #### U HCG, UMICAO, UAX #### [facility] [address] [place], [place] [address]83 Branch Credit Counselor: Calin Tapia MD Monocytes/100 WBC (Bld) 7 % Normal 3-12 [facility] Comment on above: Performed By: #### U HCG, UMICAO, UAX #### [facility] [address] [place], [place] [address]83 Branch Credit Counselor: Calin Tapia MD Neutrophil (Seg) 67 % High 36-65 [facility] Comment on above: Performed By: #### U HCG, UMICAO, UAX #### [facility] [address] [place], [place] [address]18[address]83 Branch Credit Counselor: Calin Tapia MD NRBC Automated 0.0 per 100 WBC Normal 0.0 [facility] Comment on above: Performed By: #### U HCG, UMICAO, UAX #### [facility] [address] [place], [facility]83 Branch Credit Counselor: Calin Tapia MD Platelet mean volume (Bld) [Entitic vol] 9.4 fL Normal 8.1-13.5 [facility] Comment on above: Performed By: #### U HCG, UMICAO, UAX #### [facility] [address] [place] [address] Branch Credit Counselor: Calin Tapia MD Platelets (Bld) [#/Vol] 315 10*3/uL Normal 138-453 [facility] Comment on above: Performed By: #### U HCG, UMICAO, UAX #### [facility] [address] [place], [place] 2048983 Branch Credit Counselor: Calin Tapia MD RBC (Bld) [#/Vol] 4.46 10*6/uL Normal 3.95-5.11 [facility] Comment on above: Performed By: #### U HCG, UMICAO, UAX #### [facility] [address] [place], [place] 384[address]83 Branch Credit Counselor: Calin Tapia MD WBC (Bld) [#/Vol] 6.8 10*3/uL Normal 3.5-11.3 [facility] Comment on above: Performed By: #### U HCG, UMICAO, UAX #### [facility] [address] [place], [place] [address] Branch Credit Counselor: Calin Tapia MD CT ABDOMEN PELVIS W IV CONTR Bradly 11-08-2023 CT ABDOMEN PELVIS W IV CONTRAST EXAMINATION: CT OF THE ABDOMEN AND PELVIS WITH CONTRAST 11/08/2023 8:42 am TECHNIQUE: CT of the abdomen and pelvis was performed with the administration of intravenous contrast. Multiplanar reformatted images are provided for review. Automated exposure control, iterative reconstruction, and/or weight based adjustment of the mA/kV was utilized to reduce the radiation dose to as low as reasonably achievable. COMPARISON: October 21, 2023 HISTORY: ORDERING SYSTEM PROVIDED HISTORY: Severe abdominal pain radiation left CVA/documented history for intussusception TECHNOLOGIST PROVIDED HISTORY: Severe abdominal pain radiation left CVA/documented history for intussusception Decision Support Exception - unselect if not a suspected or confirmed emergency medical condition->Emergency Medical Condition (MA) FINDINGS: Lower Chest: Lower mediastinal structures are unremarkable. The lung bases are clear. Organs: No acute abnormality is present involving the liver, gallbladder, pancreas, spleen, adrenal glands or kidneys. GI/Bowel: The small bowel is normal in caliber no acute, focal inflammatory process is identified involving the GI tract. Currently, there is no evidence of intussusception. Pelvis: The urinary bladder and distal ureters are unremarkable. The pelvic organs are age-appropriate. No significant free fluid in the pelvis. No evidence of pelvic lymphadenopathy. Stable vascular collateralization in the region of the left ovary. Peritoneum/Retroperit oneum: The abdominal aorta is normal in caliber. No intraperitoneal free air or free fluid is present. Bones/Soft Tissues: No evidence of acute osseous abnormality. IMPRESSION: No acute intra-abdominal or intrapelvic process. Currently, there is no evidence of intussusception. 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 Interpreted by: Calin Romero MD Signed by: Calin Romero MD 11/08/23 Final result Normal [facility] Comp Metabolic Profon 2023 Albumin [Mass/Vol] 4.8 g/dL Normal 3.5-5.2 [facility] Comment on above: Performed By: #### U HCG, UMICAO, UAX #### [facility] [address] [place] [address] Branch Credit Counselor: Calin Tapia MD Albumin/Glob Ratio 1.7 Normal 1.0-2.5 [facility] Comment on above: Performed By: #### U HCG, UMICAO, UAX #### [address] [place] [address] Branch Credit Counselor: Calin Tapia MD Alkaline Phos 53 U/L Normal 35-104 [facility] Comment on above: Performed By: #### U HCG, UMICAO, UAX #### [facility] [address] [place] [address] Branch Credit Counselor: Calin Tapia MD ALT [Catalytic activity/Vol] 14 U/L Normal 5-33 [facility] Comment on above: Performed By: #### U HCG, UMICAO, UAX #### [facility] [address] [place] [address] Branch Credit Counselor: Calin Tapia MD Anion gap [Moles/Vol] 12 mmol/L Normal 9-17 [facility] Comment on above: Performed By: #### U HCG, UMICAO, UAX #### [facility] [address] [place], [place] [id number] Branch Credit Counselor: Calin Tapia MD AST [Catalytic activity/Vol] 17 U/L Normal <32 [facility] Comment on above: Performed By: #### U HCG, UMICAO, UAX #### [facility] [address] [place], [place] [id number] Branch Credit Counselor: Calin Tapia MD Bilirubin [Mass/Vol] 0.7 mg/dL Normal 0.3-1.2 [facility] Comment on above: Performed By: #### U HCG, UMICAO, UAX #### [facility] [address] [place], [place] [id number] Branch Credit Counselor: Calin Tapia MD BUN/CRE Ratio 9 Normal 9-20 [facility] Comment on above: Performed By: #### U HCG, UMICAO, UAX #### [facility] [address] [place], [place] [id number] Branch Credit Counselor: Calin Tapia MD Calcium [Mass/Vol] 9.5 mg/dL Normal 8.6-10.4 [facility] Comment on above: Performed By: #### U HCG, UMICAO, UAX #### [facility] [address] [place], [place] [id number] Branch Credit Counselor: Calin Tapia MD Chloride [Moles/Vol] 107 mmol/L Normal 98-107 [facility] Comment on above: Performed By: #### U HCG, UMICAO, UAX #### [facility] [address] [place] [address] Branch Credit Counselor: Calin Tapia MD CO2 [Moles/Vol] 22 mmol/L Normal 20-31 [facility] Comment on above: Performed By: #### U HCG, UMICAO, UAX #### [facility] [address] [place] [address] Branch Credit Counselor: Calin Tapia MD Creatinine [Mass/Vol] 0.7 mg/dL Normal 0.5-0.9 [facility] Comment on above: Performed By: #### U HCG, UMICAO, UAX #### [facility] [address] [place] [address] Branch Credit Counselor: Calin Tapia MD GFR/1.73 sq M.predicted among non-blacks MDRD (S/P/Bld) [Vol rate/Area] mL/min/{1.73_m2} Normal >60 [facility] Comment on above: Result Comment: These results are not intended for use in patients <18 years of age. eGFR results are calculated without a race factor using the 2020 CKD-EPI equation. Careful clinical correlation is recommended, particularly when comparing to results calculated using previous equations. The CKD-EPI equation is less accurate in patients with extremes of muscle mass, extra-renal metabolism of creatine, excessive creatine ingestion, or following therapy that affects renal tubular secretion. Performed By: #### U HCG, UMICAO, UAX #### [facility] [address] [place] [address] Branch Credit Counselor: Calin Tapia MD Glucose [Mass/Vol] 101 mg/dL High 70-99 [facility] Comment on above: Performed By: #### U HCG, UMICAO, UAX #### [facility] [address] [place] [address] Branch Credit Counselor: Calin Tapia MD Potassium [Moles/Vol] 3.7 mmol/L Normal 3.7-5.3 [facility] Comment on above: Performed By: #### U HCG, UMICAO, UAX #### [facility] [address] [place] [address] Branch Credit Counselor: Calin Tapia MD Protein [Mass/Vol] 7.6 g/dL Normal 6.4-8.3 [facility] Comment on above: Performed By: #### U HCG, UMICAO, UAX #### [facility] [address] [place] [address] Branch Credit Counselor: Calin Tapia MD Sodium [Moles/Vol] 141 mmol/L Normal 135-144 [facility] Comment on above: Performed By: #### U HCG, UMICAO, UAX #### [facility] [address] [place] [address] Branch Credit Counselor: Calin Tapia MD Urea nitrogen [Mass/Vol] 6 mg/dL Normal 6-20 [facility] Comment on above: Performed By: #### U HCG, UMICAO, UAX #### [facility] [address] [place] [address] Branch Credit Counselor: Calin Tapia MD HCG, ,Urineon 11-07 Beta HCG ( test) Ql (U) Negative Normal NEG [facility] Comment on above: Result Comment: Spec imens with hCG levels near the threshold of the test (25 mIU/mL) may give a negative or indeterminate result. In such cases, another test should be performed with a new specimen in 48-72 hours. If early is suspected clinically in this setting, correlation with quantitative serum b-hCG level is suggested. [facility] has confirmed the use of plasma for this test. This has not been cleared or approved by the U.S. Food and Drug Administration. The FDA has determined that such clearance is not necessary. Performed By: #### U AMIC, UHCG #### [facility] [address] [place] [address] Branch Credit Counselor: Calin Tapia MD Lactic Acidon 2 Lactate [Moles/Vol] 1.2 mmol/L Normal 0.5-2.2 [facility] Comment on above: Performed By: #### U HCG, UMICAO, UAX #### [facility] [address] [place] [address] Branch Credit Counselor: Calin Tapia MD Lipaseon 11-08-2023 Lipase [Catalytic activity/Vol] 20 U/L Normal 13-60 [facility] Comment on above: Performed By: #### U HCG, UMICAO, UAX #### [facility] [address] [place] [address] Branch Credit Counselor: Calin Tapia MD Urinalysis w/ Microon 2023 Bacteria TRACE Abnormal NONE [facility] Comment on above: Performed By: #### U AMIC, UHCG #### [facility] [address] [place] [address] Branch Credit Counselor: Calin Tapia MD Bilirubin, SemiQt,Ur Negative Normal NEG [facility] Comment on above: Performed By: #### U AMIC, UHCG #### [facility] [address] [place], [place] [id number] Branch Credit Counselor: Calin Tapia MD Blood, Urine Negative Normal NEG [facility] Comment on above: Performed By: #### U AMIC, UHCG #### [facility] [address] [place], [place] 285[address]83 Branch Credit Counselor: Calin Tapia MD Clarity (U) Clear Normal CLEAR [facility] Comment on above: Performed By: #### U AMIC, UHCG #### [facility] [address] [place], [place] [id number] Branch Credit Counselor: Calin Tapia MD Color (U) Yellow Normal YEL [facility] Comment on above: Performed By: #### U AMIC, UHCG #### [facility] [address] [place] [address] Branch Credit Counselor: Calin Tapia MD Epithelial cells LM Ql (Urine sed) 2 TO 5 Normal 0-25 [facility] Comment on above: Performed By: #### U AMIC, UHCG #### [facility] [address] [place], [place] [id number] Branch Credit Counselor: Calin Tapia MD Glucose Ql (U) Negative Normal NEG [facility] Comment on above: Performed By: #### U AMIC, UHCG #### [facility] [address] [place] [address] Dr. [place], [place] [id number] Branch Credit Counselor: Calin Tapia MD Ketones Ql (U) Negative Normal NEG [facility] Comment on above: Performed By: #### U AMIC, UHCG #### [facility] [address] [place] [address] Dr[place], [place] [id number] Branch Credit Counselor: Calin Tapia MD Leukocyte esterase Test strip Ql (U) Negative Normal NEG [facility] Comment on above: Performed By: #### U AMIC, UHCG #### [facility] [address] [place] [address] Dr. [place], [facility] Branch Credit Counselor: Calin Tapia MD Nitrite,Ur Negative Normal [facility] Comment on above: Performed By: #### U AMIC, UHCG #### [facility] [address] [place] [address] Dr. [place], [place] 5803583 Branch Credit Counselor: Calin Tapia MD PH,Ur 6.5 Normal 5.0-9.0 [facility] Comment on above: Performed By: #### U AMIC, UHCG #### [facility] [address] [place] [address] [place] [address] Branch Credit Counselor: Calin Tapia MD Protein Ql (U) Negative Normal NEG [facility] Comment on above: Performed By: #### U AMIC, UHCG #### [facility] [address] [place] [address] Dr. [place], [place] [id number] Branch Credit Counselor: Calin Tapia MD Spec. [place],Ur <1.005 Low 1.010-1.020 [facility] Comment on above: Performed By: #### U AMIC, UHCG #### [facility] [address] [place] [address] Branch Credit Counselor: Calin Tapia MD Urine RBC's None Normal 0-2 [facility] Comment on above: Performed By: #### U AMIC, UHCG #### [facility] [address] [place], [place] [id number] Branch Credit Counselor: Calin Tapia MD Urine WBC's 0 TO 2 Normal 0-5 [facility] Comment on above: Performed By: #### U AMIC, CG #### [facility] [address] [place] [address] Branch Credit Counselor: Calin Tapia MD Urobilinogen,Ur Normal Normal 0.0-1.0 [facility] Comment on above: Performed By: #### U AMIC, [facility] #### [facility] [address] [place], [facility] Branch Credit Counselor: Calin Tapia MD CBC with Diffon 10-21-2023 Abs. Basophil 0.08 k/uL Normal 0.00-0.20 [facility] Comment on above: Performed By: #### C P, CDP, LIP #### [address] [place], [place] [address] Branch Credit Counselor: Calin Tapia MD Abs.Imm.Granulocyte 0.03 k/uL Normal 0.00-0.30 [facility] Comment on above: Performed By: #### C P, CDP, LIP #### [address] [place], [place] 1960083 Branch Credit Counselor: Calin Tapia MD Abs.Neutrophil (Seg) 5.70 k/uL Normal 1.50-8.10 [facility] Comment on above: Performed By: #### C P, CDP, LIP #### [address] [place] [address] Branch Credit Counselor: Calin Tapia MD Basophils/100 WBC (Bld) 1 % Normal 0-2 [facility] Comment on above: Performed By: #### C P, CDP, LIP #### [address] [place] [address] Branch Credit Counselor: Calin Tapia MD Eosinophils (Bld) [#/Vol] 0.22 10*3/uL Normal 0.00-0.44 [facility] Comment on above: Performed By: #### C P, CDP, LIP #### [address] [place] [address] Branch Credit Counselor: Calin Tapia MD Eosinophils/100 WBC (Bld) 3 % Normal 1-4 [facility] Comment on above: Performed By: #### C P, CDP, LIP #### [address] [place] [id number] Branch Credit Counselor: Calin Tapia MD Erythrocyte distribution width (RBC) [Ratio] 11.9 % Normal 11.8-14.4 [facility] Comment on above: Performed By: #### C P, CDP, LIP #### [address] [place] [address] Branch Credit Counselor: Calin Tapia MD Hematocrit (Bld) [Volume fraction] 40.4 % Normal 36.3-47.1 [facility] Comment on above: Performed By: #### C P, CDP, LIP #### [address] [place] [address] Branch Credit Counselor: Calin Tapia MD Hemoglobin (Bld) [Mass/Vol] 13.9 g/dL Normal 11.9-15.1 [facility] Comment on above: Performed By: #### C P, CDP, LIP #### [address] [place] [address] Branch Credit Counselor: Calin Tapia MD Immature granulocytes/100 WBC (Bld) 0 % Normal 0 [facility] Comment on above: Performed By: #### C P, CDP, LIP #### [facility] [address] [place] [address] Branch Credit Counselor: Calin Tapia MD Lymphocytes (Bld) [#/Vol] 2.10 10*3/uL Normal 1.10-3.70 [facility] Comment on above: Performed By: #### C P, CDP, LIP #### [facility] [address] [place] [address] Branch Credit Counselor: Calin Tapia MD Lymphocytes/100 WBC (Bld) 25 % Normal 24-43 [facility] Comment on above: Performed By: #### C P, CDP, LIP #### [address] [place] [address] Branch Credit Counselor: Calin Tapia MD MCH (RBC) [Entitic mass] 33.2 pg Normal 25.2-33.5 [facility] Comment on above: Performed By: #### C P, CDP, LIP #### [address] [place] [address] Branch Credit Counselor: Calin Tapia MD MCHC (RBC) [Mass/Vol] 34.4 g/dL Normal 28.4-34.8 [facility] Comment on above: Performed By: #### C P, CDP, LIP #### [address] [place] [address] Branch Credit Counselor: Calin Tapia MD MCV (RBC) [Entitic vol] 96.4 fL Normal 82.6-102.9 [facility] Comment on above: Performed By: #### C P, CDP, LIP #### [address] [place] [address] Branch Credit Counselor: Calin Tapia MD Monocytes (Bld) [#/Vol] 0.39 10*3/uL Normal 0.10-1.20 [facility] Comment on above: Performed By: #### C P, CDP, LIP #### [facility] [address] [place], [place] 9345083 Branch Credit Counselor: Calin Tapia MD Monocytes/100 WBC (Bld) 5 % Normal 3-12 [facility] Comment on above: Performed By: #### C P, CDP, LIP #### [facility] [address] [place], [place] [address] Branch Credit Counselor: Calin Tapia MD Neutrophil (Seg) 66 % High 36-65 [facility] Comment on above: Performed By: #### C P, CDP, LIP #### [facility] [address] [place], [place] 7243083 Branch Credit Counselor: Calin Tapia MD NRBC Automated 0.0 per 100 WBC Normal 0.0 [facility] Comment on above: Performed By: #### C P, CDP, LIP #### [facility] [address] [place] [address] Branch Credit Counselor: Calin Tapia MD Platelet mean volume (Bld) [Entitic vol] 9.3 fL Normal 8.1-13.5 [facility] Comment on above: Performed By: #### C P, CDP, LIP #### [address] [place], [facility]83 Branch Credit Counselor: Calin Tapia MD Platelets (Bld) [#/Vol] 273 10*3/uL Normal 138-453 [facility] Comment on above: Performed By: #### C P, CDP, LIP #### [facility] [address] [place], [place] [id number] Branch Credit Counselor: Calin Tapia MD RBC (Bld) [#/Vol] 4.19 10*6/uL Normal 3.95-5.11 [facility] Comment on above: Performed By: #### C P, CDP, LIP #### [facility] [address] [place] 1698783 Branch Credit Counselor: Calin Tapia MD WBC (Bld) [#/Vol] 8.5 10*3/uL Normal 3.5-11.3 [facility] Comment on above: Performed By: #### C P, CDP, LIP #### [facility] [address] [place] [id number] Branch Credit Counselor: Calin Tapia MD CT ABDOMEN PELVIS W IV CONTR Bradly 10-21-2023 CT ABDOMEN PELVIS W IV CONTRAST EXAMINATION: CT OF THE ABDOMEN AND PELVIS WITH CONTRAST 10/21/2023 2:13 pm TECHNIQUE: CT of the abdomen and pelvis was performed with the administration of intravenous contrast. Multiplanar reformatted images are provided for review. Automated exposure control, iterative reconstruction, and/or weight based adjustment of the mA/kV was utilized to reduce the radiation dose to as low as reasonably achievable. COMPARISON: None. HISTORY: ORDERING SYSTEM PROVIDED HISTORY: Left abd pain TECHNOLOGIST PROVIDED HISTORY: Left abd pain Decision Support Exception - unselect if not a suspected or confirmed emergency medical condition->Emergency Medical Condition (MA) FINDINGS: CARDIOVASCULAR: The visualized heart and pericardium demonstrate no acute abnormality. The aorta and branch vessels are patent and normal in caliber. LUNG BASES: There are no focal consolidations or pleural effusions. HEPATOBILIARY: There are no focal hepatic lesions. There is no biliary ductal dilatation. The gallbladder is unremarkable. SPLEEN: Unremarkable. PANCREAS: Unremarkable ADRENAL GLANDS: Unremarkable. KIDNEYS: Kidneys are normal in size and contour and demonstrate symmetric enhancement. There is no hydronephrosis or nephrolithiasis. ABDOMINAL NODES: No adenopathy is appreciated. PELVIC ORGANS: The urinary bladder is unremarkable. The uterus is unremarkable. Free fluid in the pelvis, likely physiologic. PERITONEUM/MESENTERY/ BOWEL: The stomach is unremarkable. There is no bowel obstruction. There is no bowel wall thickening. The appendix is normal. There is a small bowel intussusception in the mid lower abdomen/pelvis, which are usually transient in nature. BONES/SOFT TISSUES: There is no acute osseous or soft tissue abnormality. IMPRESSION: 1. Small bowel intussusception in the mid lower abdomen/pelvis, which are usually transient in nature. There is no bowel obstruction. 2. Otherwise, unremarkable exam. Interpreted by: Coy Sevilla MD Signed by: Coy Sevilla MD 10/21/23 Final result Normal [facility] Comp Metabolic Profon 2023 Albumin [Mass/Vol] 4.7 g/dL Normal 3.5-5.2 [facility] Comment on above: Performed By: #### U MICAO, UAX #### [facility] [address] [place], [place] 5593983 Branch Credit Counselor: Calin Tapia MD Albumin/Glob Ratio 1.5 Normal 1.0-2.5 [facility] Comment on above: Performed By: #### U MICAO, UAX #### [facility] [address] [place], [place] 1094183 Branch Credit Counselor: Calin Tapia MD Alkaline Phos 58 U/L Normal 35-104 [facility] Comment on above: Performed By: #### U MICAO, UAX #### [facility] [address] [place], [place] 5262183 Branch Credit Counselor: Calin Tapia MD ALT [Catalytic activity/Vol] 25 U/L Normal 5-33 [facility] Comment on above: Performed By: #### U MICAO, UAX #### [facility] [address] [place], [place] 5978783 Branch Credit Counselor: Calin Tapia MD Anion gap [Moles/Vol] 10 mmol/L Normal 9-17 [facility] Comment on above: Performed By: #### U MICAO, UAX #### [facility] [address] [place] [address] Branch Credit Counselor: Calin Tapia MD AST [Catalytic activity/Vol] 23 U/L Normal <32 [facility] Comment on above: Performed By: #### U MICAO, UAX #### [facility] [address] [place], [place] 4557883 Branch Credit Counselor: Calin Tapia MD Bilirubin [Mass/Vol] 0.5 mg/dL Normal 0.3-1.2 [facility] Comment on above: Performed By: #### U MICAO, UAX #### [facility] [address] [place], [place] 474[address]83 Branch Credit Counselor: Calin Tapia MD BUN/CRE Ratio 15 Normal 9-20 [facility] Comment on above: Performed By: #### U MICAO, UAX #### [facility] [address] [place], [place] 465[address]83 Branch Credit Counselor: Calin Tapia MD Calcium [Mass/Vol] 8.8 mg/dL Normal 8.6-10.4 [facility] Comment on above: Performed By: #### U KATHERINEO, UAX #### [facility] [address] [place], [place] 6917483 Branch Credit Counselor: Calin Tapia MD Chloride [Moles/Vol] 103 mmol/L Normal 98-107 [facility] Comment on above: Performed By: #### U KATHERINEO, UAX #### [facility] [address] [place], [place] 27[address]83 Branch Credit Counselor: Calin Tapia MD CO2 [Moles/Vol] 26 mmol/L Normal 20-31 [facility] Comment on above: Performed By: #### U MICAO, UAX #### [facility] [address] [place], [place] 9493683 Branch Credit Counselor: Calin Tapia MD Creatinine [Mass/Vol] 0.6 mg/dL Normal 0.5-0.9 [facility] Comment on above: Performed By: #### U MICAO, UAX #### [facility] [address] [place], [place] 4402883 Branch Credit Counselor: Calin Tapia MD GFR/1.73 sq M.predicted among non-blacks MDRD (S/P/Bld) [Vol rate/Area] mL/min/{1.73_m2} Normal >60 [facility] Comment on above: Result Comment: These results are not intended for use in patients <18 years of age. eGFR results are calculated without a race factor using the 2020 CKD-EPI equation. Careful clinical correlation is recommended, particularly when comparing to results calculated using previous equations. The CKD-EPI equation is less accurate in patients with extremes of muscle mass, extra-renal metabolism of creatine, excessive creatine ingestion, or following therapy that affects renal tubular secretion. Performed By: #### U KATHERINEO, UAX #### [facility] [address] [place] [address] [place] [address] Branch Credit Counselor: Calin Tapia MD Glucose [Mass/Vol] 83 mg/dL Normal 70-99 [facility] Comment on above: Performed By: #### U DA, UAX #### [facility] [address] [place] [address] Branch Credit Counselor: Calin Tapia MD Potassium [Moles/Vol] 3.8 mmol/L Normal 3.7-5.3 [facility] Comment on above: Performed By: #### U KATHERINEO, UAX #### [address] [place] [address] Branch Credit Counselor: Calin Tapia MD Protein [Mass/Vol] 7.8 g/dL Normal 6.4-8.3 [facility] Comment on above: Performed By: #### U MICAO, UAX #### [facility] [address] [place] [address] Branch Credit Counselor: Calin Tapia MD Sodium [Moles/Vol] 139 mmol/L Normal 135-144 [facility] Comment on above: Performed By: #### U MICAO, UAX #### [facility] [address] [place] [address] Branch Credit Counselor: Calin Tapia MD Urea nitrogen [Mass/Vol] 9 mg/dL Normal 6-20 [facility] Comment on above: Performed By: #### U MICAO, UAX #### [facility] [address] [place] [address] Branch Credit Counselor: Calin Tapia MD HCG, ,Urineon 10-20 Beta HCG ( test) Ql (U) Negative Normal NEG [facility] Comment on above: Result Comment: Spec imens with hCG levels near the threshold of the test (25 mIU/mL) may give a negative or indeterminate result. In such cases, another test should be performed with a new specimen in 48-72 hours. If early is suspected clinically in this setting, correlation with quantitative serum b-hCG level is suggested. [facility] has confirmed the use of plasma for this test. This has not been cleared or approved by the U.[place]. Food and Drug Administration. The FDA has determined that such clearance is not necessary. Performed By: #### U HCG, UMICAO, UAX #### [facility] [address] [place] [address] Branch Credit Counselor: Calin Tapia MD Lipaseon 10-20-3143 Lipase [Catalytic activity/Vol] 21 U/L Normal 13-60 [facility] Comment on above: Performed By: #### U MICAO, UAX #### [facility] [address] [place] [address] Branch Credit Counselor: Calin Tapia MD UA w/Reflex Cultureon 2023 Bilirubin, SemiQt,Ur Negative Normal NEG [facility] Comment on above: Performed By: #### U HCG, UMICAO, UAX #### [facility] [facility] [address] [place] [address] Branch Credit Counselor: Calin Tapia MD Blood, Urine Negative Normal NEG [facility] Comment on above: Performed By: #### U HCG, UMICAO, UAX #### [facility] [address] [place] [address] Branch Credit Counselor: Calin Tapia MD Clarity (U) Clear Normal CLEAR [facility] Comment on above: Performed By: #### U HCG, UMICAO, UAX #### [facility] [address] [place], [place] [id number] Branch Credit Counselor: Calin Tapia MD Color (U) Yellow Normal YEL [facility] Comment on above: Performed By: #### U HCG, UMICAO, UAX #### [facility] [address] [place] [address] Dr. [place], [place] [id number] Branch Credit Counselor: Calin Tapia MD Glucose Ql (U) Negative Normal NEG [facility] in Hospital Comment on above: Performed By: #### U HCG, UMICAO, UAX #### [facility] [address] [place] [address] Dr. [place], [place] 1913383 Branch Credit Counselor: Calin Tapia MD Ketones Ql (U) Negative Normal NEG [facility] Comment on above: Performed By: #### U HCG, UMICAO, UAX #### [facility] [address] [place] [address] Dr. [place], [place] [id number] Branch Credit Counselor: Calin Tapia MD Leukocyte esterase Test strip Ql (U) Negative Normal NEG [facility] Comment on above: Performed By: #### U HCG, UMICAO, UAX #### [facility] [address] [place] [address] Dr. [place], [place] [id number] Branch Credit Counselor: Calin Tapia MD Nitrite,Ur Negative Normal NEG [facility] Comment on above: Performed By: #### U HCG, UMICAO, UAX #### [facility] [address] [place], [place] [id number] Branch Credit Counselor: Calin Tapia MD PH,Ur 6.5 Normal 5.0-9.0 [facility] Comment on above: Performed By: #### U HCG, UMICAO, UAX #### [facility] [address] [place] [id number] Branch Credit Counselor: Calin Tapia MD Protein Ql (U) Negative Normal NEG [facility] Comment on above: Performed By: #### U HCG, UMICAO, UAX #### [facility] [address] [place], [place] [id number] Branch Credit Counselor: Calin Tapia MD Spec. [place],Ur 1.020 Normal 1.010-1.020 [facility] Comment on above: Performed By: #### U HCG, UMICAO, UAX #### [facility] [address] [place] [address] Dr. [place], [place] [id number] Branch Credit Counselor: Calin Tapia MD Urobilinogen,Ur Normal Normal 0.0-1.0 [facility] Comment on above: Performed By: #### U HCG, UMICAO, UAX #### [facility] [address] [place] [address] Dr. [place], [place] [id number] Branch Credit Counselor: Calin Tapia MD Urinalysis,Microon 4 Bacteria TRACE Abnormal NONE [facility] Comment on above: Performed By: #### U HCG, UMICAO, UAX #### [facility] [address] [place] [address] Dr. [place], [place] [id number] Branch Credit Counselor: Calin Tapia MD Epithelial cells LM Ql (Urine sed) 0 TO 2 Normal 0-25 [facility] Comment on above: Performed By: #### U HCG, UMICAO, UAX #### [facility] [address] [place], [place] [id number] Branch Credit Counselor: Calin Tapia MD Mucus Strands TRACE Abnormal NONE [facility] Comment on above: Performed By: #### U HCG, UMICAO, UAX #### [facility] [address] [place], [place] [id number] Branch Credit Counselor: Calin Tapia MD Urine RBC's None Normal 0-2 [facility] Comment on above: Performed By: #### U HCG, UMICAO, UAX #### [facility] [address] [place] [address] Branch Credit Counselor: Calin Tapia MD Urine WBC's 0 TO 2 Normal 0-5 [facility] Comment on above: Performed By: #### U HCG, UMICAO, UAX #### [facility] [address] [place] [address] Branch Credit Counselor: Calin Tapia MD No Panel Informationon 05-23 No dictation [facility] Work Phone: [facility] Work Phone: Amylaseon 01-14-2022 Amylase [Catalytic activity/Vol] 43 U/L 28 - 100 U/L [facility] Basic Metabolic Panel w/ Ref riddhi to MGon 01-14-2022 Anion gap [Moles/Vol] 8 mmol/L Low 9 - 17 mmol/L [facility] Calcium [Mass/Vol] 9.1 mg/dL 8.6 - 10. 4 mg/dL [facility] Chloride [Moles/Vol] 109 mmol/L High 98 - 10 7 mmol/L [facility] CO2 [Moles/Vol] 22 mmol/L 20 - 31 mmol/L [facility] Creatinine [Mass/Vol] 0.61 mg/dL 0.50 - 0.90 mg/dL [facility] GFR >60 >60 mL/min [facility] GFR Non- >60 >60 mL/min [facility] Glucose [Mass/Vol] 97 mg/dL 70 - 99 mg/dL [facility] Interpretation and review of laboratory results Abnormal [facility] Potassium [Moles/Vol] 4.2 mmol/L 3.7 - 5.3 mmol/L [facility] Sodium [Moles/Vol] 139 mmol/L 135 - 144 mmol/L [facility] Urea nitrogen (BldV) [Mass/Vol] 9 mg/dL 6 - 20 mg/dL [facility] Urea nitrogen/Creatinine (Bld) [Mass ratio] 15 [facility] CBC with Auto Differentialon 01-14-2022 Absolute [facility]os # 0[address] [facility] Absolute Immature Granulocyte <0.03 [facility] Absolute Lymph # 1.39 [facility] Absolute Alexander # 0.42 [facility] Basophils (Bld) [#/Vol] 0.05 10*3/uL [facility] Basophils/100 WBC (Bld) 1 % 0 - 2 % [facility] Eosinophils/100 WBC (Bld) 1 % 1 - 4 % [facility] Hematocrit (Bld) [Volume fraction] 35.6 % Low 36.3 - 47.1 % [facility] Hemoglobin (Bld) [Mass/Vol] 12.1 g/dL 11.9 - 15.1 g/dL [facility] Immature granulocytes/100 WBC (Bld) 0 % 0 [facility] Interpretation and review of laboratory results Abnormal [facility] Lymphocytes/100 WBC (Bld) 19 % Low 24 - 43 % [facility] MCH (RBC) [Entitic mass] 33.0 pg 25.2 - 33.5 pg [facility] MCHC (RBC) [Mass/Vol] 34.0 g/dL 28.4 - 34.8 g/dL [facility] MCV (RBC) [Entitic vol] 97.0 fL 82.6 - 102.9 fL [facility] Monocytes/100 WBC (Bld) 6 % 3 - 12 % [facility] NRBC Automated 0.0 0.0 per 100 WBC [facility] Platelet distribution width (Bld) [Ratio] 11.9 % 11.8 - 14.4 % [facility] Platelet mean volume (Bld) [Entitic vol] 9.6 fL 8.1 - 13.5 fL [facility] Platelets (Bld) [#/Vol] 214 10*3/uL [facility] RBC (Bld) [#/Vol] 3.67 10*6/uL Low 3.95 - 5.1 1 m/uL [facility] Segmented neutrophils/100 WBC (Bld) 73 % High 36 - 65 % [facility] Segs Absolute 5.34 [facility] WBC (Bld) [#/Vol] 7.3 10*3/uL [facility] HCG Qualitative, Serumon hCG Qual Negative NEGATIVE [facility] Comment on above: Specimens with hCG l evels near the threshold of the test (25 mIU/mL) may give a negative or indeterminate result. In such cases, another test should be performed with a new specimen in 48-72 hours. If early is suspected clinically in this setting, correlation with quantitative serum b-hCG level is suggested. [facility] has confirmed the use of plasma for this test. This has not been cleared or approved by the U.S. Food and Drug Administration. The FDA has determined that such clearance is not necessary. [facility] Hepatic Function Panelon Albumin [Mass/Vol] 4.8 g/dL 3.5 - 5.2 g/dL [facility] Albumin/Globulin [Mass ratio] 2.0 {ratio} [facility] ALP (Bld) [Catalytic activity/Vol] 49 U/L 35 - 104 U/L [facility] ALT [Catalytic activity/Vol] 12 U/L 5 - 33 U/L [facility] AST [Catalytic activity/Vol] 13 U/L <32 [facility] Bilirubin [Mass/Vol] 0.44 mg/dL 0.3 - 1 .2 mg/dL [facility] Bilirubin, Indirect Can not be calculated 0.00 - 1.00 mg/dL [facility] Bilirubin.indirect [Mass/Vol] mg/dL <0.31 mg/dL [facility] Free PSA/Total PSA [Mass fraction] 7.2 g/dL 6.4 - 8.3 g/dL [facility] Laboratory - Chemistry and C hemistry - challengeon 01-14-2022 GFR/1.73 sq M.predicted MDRD (S/P/Bld) [Vol rate/Area] [facility] Comment on above: Average GFR for 20-2 9 years old: 116 mL/min/1.73sq m Chronic Kidney Disease: <60 mL/min/1.73sq m Kidney failure: <15 mL/min/1.73sq m eGFR calculated using average adult body mass. Additional eGFR calculator available at: http://www.[employer]/multiple_crcl_2012.htm Stage 1: Some kidney damage normal GFR Stage 2: Mild kidney damage GFR 60-89 Stage 3: Moderate kidney damage GFR 30-59 Stage 4: Severe kidney damage GFR 15-29 Stage 5: Severe kidney damage GFR <15 ESRD - chronic treatment by dialysis or transplant Lipaseon 01-14-2022 Lipase [Catalytic activity/Vol] 15 U/L 13 - 60 U/L [facility] No Panel Informationon 01-14 [facility] Urinalysis with Microscopico n 01-14-2022 - [facility] Bacteria, UA TRACE Abnormal None [facility] Bilirubin Urine Negative NEGATIVE [facility] Color, UA Yellow Yellow [facility] Epithelial Cells UA 5 TO 10 [facility] Glucose, Ur Negative NEGATIVE [facility] Interpretation and review of laboratory results Abnormal [facility] Ketones Ql (U) Negative NEGATIVE [facility] Leukocyte esterase Test strip Ql (U) Negative NEGATIVE [facility] Nitrite, Urine Negative NEGATIVE [facility] pH, UA 7.0 [facility] Protein, UA Negative NEGATIVE [facility] RBC, UA 0 TO 2 [facility] Specific [place], UA 1.010 [facility] Turbidity UA Clear Clear [facility] Urine Hgb Negative NEGATIVE [facility] Urobilinogen, Urine Normal Normal [facility] WBC, UA 0 TO 2 [facility] US GALLBLADDER RUQon 020 Overall, unremarkabl e right upper quadrant abdominal ultrasound. [facility] [place], [place] EXAMINATION: RIGHT UPPER QUADRANT ULTRASOUND 10/11/2019 10:03 am COMPARISON: CT abdomen pelvis from 10/27/2015 HISTORY: ORDERING SYSTEM PROVIDED HISTORY: RUQ pain 24-year-old female with right upper quadrant abdominal pain FINDINGS: LIVER: The liver demonstrates normal echogenicity without evidence of intrahepatic biliary ductal dilatation. Liver length measures 19.7 cm. Color flow projects over the main portal vein with a normal hepatopetal, monophasic waveform. BILIARY SYSTEM: Gallbladder is unremarkable without evidence of pericholecystic fluid, wall thickening or stones. Negative sonographic Yung's sign. Gallbladder wall thickness measures 2 mm. Common bile duct is within normal limits measuring 4 mm. RIGHT KIDNEY: Right kidney measures 12.1 x 5.7 x 6.1 cm. Right renal cortical thickness measures 1.4 cm. No gross right-sided hydronephrosis. PANCREAS: Visualized portions of the pancreas are unremarkable. OTHER: No evidence of right upper quadrant ascites. Proximal and mid abdominal aorta grossly unremarkable in appearance. Distal abdominal aorta is not visualized. IVC appears patent. [place], [place] Richard, Rust Incoming Radiant Results From [employer] - 10/11/2019 10:33 AM EDT EXAMINATION: RIGHT UPPER QUADRANT ULTRASOUND 10/11/2019 10:03 am COMPARISON: CT abdomen pelvis from 10/27/2015 HISTORY: ORDERING SYSTEM PROVIDED HISTORY: RUQ pain 24-year-old female with right upper quadrant abdominal pain FINDINGS: LIVER: The liver demonstrates normal echogenicity without evidence of intrahepatic biliary ductal dilatation. Liver length measures 19.7 cm. Color flow projects over the main portal vein with a normal hepatopetal, monophasic waveform. BILIARY SYSTEM: Gallbladder is unremarkable without evidence of pericholecystic fluid, wall thickening or stones. Negative sonographic Yung's sign. Gallbladder wall thickness measures 2 mm. Common bile duct is within normal limits measuring 4 mm. RIGHT KIDNEY: Right kidney measures 12.1 x 5.7 x 6.1 cm. Right renal cortical thickness measures 1.4 cm. No gross right-sided hydronephrosis. PANCREAS: Visualized portions of the pancreas are unremarkable. OTHER: No evidence of right upper quadrant ascites. Proximal and mid abdominal aorta grossly unremarkable in appearance. Distal abdominal aorta is not visualized. IVC appears patent. IMPRESSION: Overall, unremarkable right upper quadrant abdominal ultrasound. [facility] Operative Reporton 9 Operative Report Patient: Anna Moulton Age: 23 years Sex: Female : 1995 Associated Diagnoses: None Author: Jolly Garsia DO Preoperative diagnosis: 1. Desires sterilization Postoperative diagnosis: 1. Same Procedure: Laparoscopic bilateral salpingectomy Surgeon: Dr. Jolly Rosales Asst.: Franck Munoz Anesthesia: general Estimated blood loss: [5 mL] Urine: Drained prior to surgery Condition: Stable Complications: None Findings: The patient had an anteverted uterus which was approximately 7 cm in size; both tubes and ovaries were grossly within normal limits Operative note: The patient was taken to the operating room where general anesthesia was obtained without difficulty. She was prepped and draped in the usual sterile fashion in the dorsal lithotomy position. A sponge stick was placed to facilitate uterine manipulation. Attention was then turned to the patient's abdomen. An infraumbilical incision was made with the scalpel creating approximately an 11 mm incision. A Veress needle was carefully introduced at a 45? angle and intra-abdominal placement was confirmed by use of a water-filled syringe and drop in intra-abdominal pressure with insufflation of CO2. The abdomen was insufflated with approximately 2 L of CO2. An 11 mm step port was then placed and intra-abdominal position was confirmed by laparoscopy. After complete inspection of the patient's pelvis with the findings noted above, we placed the second and third ports. These were placed 4 cm inferior and 5 cm lateral to the first. We placed 5 mm ports first on the left and then on the right, under direct visualization, and without difficulty. A 5 mm LigaSure was then introduced and utilized to ligate from the fimbria toward the cornua of each tube along the mesosalpinx of the broad ligaments bilaterally. Both specimens were removed through the right port. Once hemostasis was assured all instruments were removed from the abdomen. The abdomen was allowed to desufflate. The 11 mm port was closed at the level of the fascia with 2-0 Vicryl and all skin incision were closed with 4-0 Monocryl. Sponge, lap, needle, and instrument counts were correct x 2. The patient was take to recover in apparently stable condition. Electronically signed by Jolly Garsia DO 04/18/19 13:23 EDT Normal [facility] Surgical Pathology Reporton 04-18-2019 Surgical Pathology Report Clinical Information Procedure: lap salpingectomy Pre-operative diagnosis: voluntary sterilization SP Specimen A Bilateral fallopian tubes, stitch in left tube Gross Description Received in formalin labeled ?bilateral fallopian tubes, stitch in left' are bilateral fallopian tubes with attached fimbria. The right fallopian tube measures 4.0 cm. in length x 0.3 cm. in diameter. Sections from the right fallopian tube are submitted in cassette A1. The left fallopian tube measures 3.7 cm. in length x 0.4 cm. in diameter. Sections from the left fallopian tube are submitted in cassette A2. Microscopic Description Microscopic examination was performed. Diagnosis Parts A/B: Fallopian tubes, right and left, partial, bilateral salpingectomy (voluntary sterilization): No pathologic changes. Complete cross-sections of fallopian tubes are noted. Bernadette Weiss MD (Electronically signed by) Verified: 04/19/19 12:39 Normal [facility] Comment on above: Performed By: #### S AR #### [facility] (DEFAULT) [address] [place] [address] HIV-1,2 Combo Ag/Ab, Reflexi ve Panelon 09-11-2018 HIV 1,2 Combo Antigen/Antibody Negative Normal Negative [facility] Comment on above: Order Comment: CALL doctor [id number] tel. [phone], fax results to [phone] Result Comment: The specimen was non-reactive for HIV-1 and HIV-2 antibodies, and p24 antigen. Based on this non-reactive screen result, further reflexive testing was not indicated and was, therefore, not performed INTERPRETIVE INFORMATION: HIV-1,2 Combo Ag/Ab EIA, w/Reflex This assay should not be used for blood donor screening, associated re-entry protocols, or for screening Human Cells, Tissues, and Cellular and Tissue-Based Products (HCT/P). Performed by [employer], [address] [place] [id number] [email or web address], Jossue Valdez MD - Lab. Director Hepatitis Acute Panelon Hepatitis Profile Interp see below Normal [facility] Comment on above: Order Comment: CALL doctor [id number] tel. [phone], fax results to [phone] Result Comment: The acute hepatitis panel is negative. There is no evidence of acute hepatitis A, B, C. Hepatitis A Antibody (IgM) Interp Non-reactive [facility] Comment on above: Order Comment: CALL doctor [id number] tel. [phone], fax results to [phone] Hepatitis B Core Ab IgM Interp Non-reactive [facility] Comment on above: Order Comment: CALL doctor [id number] tel. [phone], fax results to [phone] Hepatitis B Surface Ag Interp Non-reactive [facility] Comment on above: Order Comment: CALL doctor [id number] tel. [phone], fax results to [phone] Hepatitis C Antibody Interp Non-reactive [facility] Comment on above: Order Comment: CALL doctor [id number] tel. [phone], fax results to [phone] Liver Panelon 09-09-2018 Albumin [Mass/Vol] 3.8 g/dL Normal 3.5-4.6 [facility] Comment on above: Order Comment: CALL doctor [id number] tel. [phone], fax results to [phone] Result Comment: Effe ctive: 09/09/2018 New reference range for this analyte has been established. ALP [Catalytic activity/Vol] 54 U/L Normal 40-130 [facility] Comment on above: Order Comment: CALL doctor [id number] tel. [phone], fax results to [phone] ALT [Catalytic activity/Vol] 7 U/L Normal 0-33 [facility] Comment on above: Order Comment: CALL doctor [id number] tel. [phone], fax results to [phone] AST [Catalytic activity/Vol] 9 U/L Normal 0-35 [facility] Comment on above: Order Comment: CALL doctor [id number] tel. [phone], fax results to [phone] Bilirubin [Mass/Vol] mg/dL Normal 0.2-0.7 [facility] Comment on above: Order Comment: CALL doctor [id number] tel. [phone], fax results to [phone] Result Comment: Effe ctive: 09/09/2018 New reference range for this analyte has been established. Bilirubin Indirect see below Normal 0.0-0.6 [facility] Comment on above: Order Comment: CALL doctor [id number] tel. [phone], fax results to [phone] Result Comment: Nena rect Bilirubin cannot be calculated since Total Bilirubin and/or Direct Bilirubin is below measurable range. Bilirubin.direct [Mass/Vol] mg/dL Normal 0.0-0.4 [facility] Comment on above: Order Comment: CALL doctor [id number] tel. [phone], fax results to [phone] Result Comment: Effe ctive: 09/09/2018 New reference range for this analyte has been established. Protein [Mass/Vol] 6.6 g/dL Normal 6.3-8.0 [facility] Comment on above: Order Comment: CALL doctor [id number] tel. [phone], fax results to [phone] Result Comment: Effe ctive: 09/09/2018 New reference range for this analyte has been established. Vital Signs Date Time Vital Sign Value Performing Clinician Kip white 05-28-2024 22:40-0400 Body height 154.9 cm Linn Pozo DO Work Phone: [facility] 8 05-28-2024 22:40-0400 Body mass index (BMI) [Ratio] 20.78 kg/m2 Linn Pozo DO Work Phone: [facility] 05-28-2024 22:40-0400 Body weight 49.9 kg Linn Pozo DO Work Phone: [facility] 05-28-2024 22:40-0400 Diastolic blood pressure 71 mm[Hg] Linn Pozo DO Work Phone: [facility] 05-28-2024 22:40-0400 Heart rate 71 /min Linn Pozo DO Work Phone: [facility] 05-28-2024 22:40-0400 Respiratory rate 18 /min Linn Pozo DO Work Phone: [facility] 05-28-2024 22:40-0400 SaO2% (BldA) [Mass fraction] 98 % Linn Pozo DO Work Phone: [facility] 05-28-2024 22:40-0400 Systolic blood pressure 115 mm[Hg] Linn Pozo DO Work Phone: [facility] 05-17-2024 13:09-0400 Body weight 50.17 kg Tete Hoang MD Work Phone: [facility] 05-17-2024 13:09-0400 Diastolic blood pressure 69 mm[Hg] Tete Hoang MD Work Phone: [facility] 05-17-2024 13:09-0400 Heart rate 77 /min Tete Hoang MD Work Phone: [facility] 05-17-2024 13:09-0400 Systolic blood pressure 121 mm[Hg] Tete Hoang MD Work Phone: [facility] 05-07-2024 13:35-0400 Diastolic blood pressure 71 mm[Hg] Aiden Salcedo MD Work Phone: [facility] 05-07-2024 13:35-0400 Heart rate 74 /min Aiden Salcedo MD Work Phone: [facility] 05-07-2024 13:35-0400 Respiratory rate 14 /min Aiden Salcedo MD Work Phone: [facility] 05-07-2024 13:35-0400 SaO2% (BldA) [Mass fraction] 100 % Aiden Salcedo MD Work Phone: [facility] 05-07-2024 13:35-0400 Systolic blood pressure 128 mm[Hg] Aiden Salcedo MD Work Phone: [facility] 05-07-2024 11:23-0400 Body temperature 99.61 [degF] Aiden Salcedo MD Work Phone: [employer] [facility] 05-03-2024 21:56-0400 Diastolic blood pressure 75 mm[Hg] Siri Barrera DO Work Phone: [facility] 05-03-2024 21:56-0400 Systolic blood pressure 124 mm[Hg] Siri Barrera DO [facility] Phone: [facility] 05-03-2024 21:53-0400 Body mass index (BMI) [Ratio] 21.35 kg/m2 Siri Barrera DO Work Phone: [facility] 05-03-2024 21:53-0400 Body temperature 97.7 [degF] Siri Barrera DO Work Phone: [facility] 05-03-2024 21:53-0400 Body weight 51.26 kg Siri Barrera DO Work Phone: [facility] 05-03-2024 21:53-0400 Heart rate 85 /min Siri Barrera DO Work Phone: [facility] 05-03-2024 21:53-0400 Respiratory rate 16 /min Siri Barrera DO Work Phone: [facility] 05-03-2024 21:53-0400 SaO2% (BldA) [Mass fraction] 100 % Siri Barrera DO Work Phone: [facility] 05-02-2024 02:19-0400 Heart rate 61 /min Linn Pozo DO Work Phone: [facility] 05-02-2024 02:19-0400 Respiratory rate 16 /min Linn Pozo DO Work Phone: [facility] 05-02-2024 02:19-0400 SaO2% (BldA) [Mass fraction] 98 % Linn Pozo DO Work Phone: [facility] 05-02-2024 01:19-0400 Diastolic blood pressure 41 mm[Hg] Linn Pozo DO Work Phone: [facility] 05-02-2024 01:19-0400 Systolic blood pressure 103 mm[Hg] Linn Pozo DO Work Phone: [facility] 05-01-2024 22:00-0400 Body temperature 97.81 [degF] Linn Pozo DO Work Phone: [facility] [facility] 04-24-[facility]24 22:54-0400 Body temperature 97.59 [degF] Siri Barrera DO Work Phone: [facility] 04-24-2024 22:54-0400 Diastolic blood pressure 79 mm[Hg] Siri Barrera DO Work Phone: [facility] 04-24-2024 22:54-0400 Heart rate 73 /min Siri Barrera DO Work Phone: [facility] 04-24-2024 22:54-0400 Respiratory rate 17 /min Siri Barrera DO Work Phone: [facility] 04-24-2024 22:54-0400 SaO2% (BldA) [Mass fraction] 99 % Siri Barrera DO Work Phone: [facility] 04-24-2024 22:54-0400 Systolic blood pressure 111 mm[Hg] Siri Barrera DO Work Phone: [facility] 04-15-2024 23:56-0400 Body temperature 97.7 [degF] Blaise Delaney MD Work Phone: [facility] 04-15-2024 22:52-0400 Body height 154.9 cm Blaise Delaney MD Work Phone: [facility] 04-15-2024 22:52-0400 Body mass index (BMI) [Ratio] 22.67 kg/m2 Blaise Delaney MD Work Phone: [employer] 04-15-2024 22:52-0400 Body weight 54.43 kg Blaise Delaney MD Work Phone: [facility] 04-15-2024 22:52-0400 Diastolic blood pressure 80 mm[Hg] Blaise Delaney MD Work Phone: [facility] 04-15-2024 22:52-0400 Heart rate 89 /min Blaise Delaney MD Work Phone: [employer] 04-15-2024 22:52-0400 Respiratory rate 16 /min Blaise Delaney MD Work Phone: [facility] 04-15-2024 22:52-0400 SaO2% (BldA) [Mass fraction] 98 % Blaise Delaney MD Work Phone: [employer] 04-15-2024 22:52-0400 Systolic blood pressure 123 mm[Hg] Blaise Delaney MD Work Phone: [employer] 01-11-2024 12:13-0400 Body temperature 97.81 [degF] Chencho Pinedo MD [facility] [employer] 01-11-2024 12:13-0400 Diastolic blood pressure 84 mm[Hg] Chencho Pinedo MD [employer] 01-11-2024 12:13-0400 Heart rate 96 /min Chencho Pinedo MD [employer] 01-11-2024 12:13-0400 Respiratory rate 18 /min Chencho Pinedo MD [employer] 01-11-2024 12:13-0400 SaO2% (BldA) [Mass fraction] 100 % Chencho Pinedo MD [facility] 01-11-2024 12:13-0400 Systolic blood pressure 126 mm[Hg] Chencho Pinedo MD [facility] 05-23-2022 13:58-0400 Diastolic blood pressure 58 mm[Hg] Melissa Bridges DO Work Phone: [facility] 05-23-2022 13:58-0400 Heart rate 56 /min Melissa Nazemi DO Work Phone: [facility] 05-23-2022 13:58-0400 Respiratory rate 16 /min Melissa Nazemi DO Work Phone: [facility] 05-23-2022 13:58-0400 SaO2% (BldA) [Mass fraction] 100 % Melissa Nazemi DO Work Phone: [facility] 05-23-2022 13:58-0400 Systolic blood pressure 100 mm[Hg] Melissa Nazemi DO Work Phone: [facility] 05-23-2022 13:22-0400 Body temperature 97.2 [degF] Melissa Nazemi DO Work Phone: [facility] 05-23-2022 12:00-0400 Body height 154.9 cm Melissa Nazemi DO Work Phone: [facility] 05-23-2022 12:00-0400 Body mass index (BMI) [Ratio] 21.35 kg/m2 Melissa Nazemi DO Work Phone: [facility] 05-23-2022 12:00-0400 Body weight 51.26 kg Melissa Nazemi DO Work Phone: [facility] 04-03-2022 02:51-0400 Body temperature 97.81 [degF] Oneyda Dickens MD Work Phone: [facility] 04-03-2022 02:51-0400 Diastolic blood pressure 75 mm[Hg] Oneyda Dickens MD Work Phone: [facility] 04-03-2022 02:51-0400 Heart rate 78 /min Oneyda Dickens MD Work Phone: [facility] 04-03-2022 02:51-0400 Respiratory rate 18 /min Oneyda Dickens MD Work Phone: [facility] 04-03-2022 02:51-0400 SaO2% (BldA) [Mass fraction] 100 % Oneyda Dickens MD Work Phone: [facility] 04-03-2022 02:51-0400 Systolic blood pressure 150 mm[Hg] Oneyda Dickens MD Work Phone: [facility] 01-14-2022 12:00-0400 Diastolic blood pressure 78 mm[Hg] Siri Barrera DO Work Phone: [employer] 01-14-2022 12:00-0400 Heart rate 84 /min Siri Barrera DO Work Phone: [facility] 01-14-2022 12:00-0400 Respiratory rate 16 /min Siri Barrera DO Work Phone: [facility] 01-14-2022 12:00-0400 SaO2% (BldA) [Mass fraction] 100 % Siri Barrera DO Work Phone: [employer] 01-14-2022 12:00-0400 Systolic blood pressure 136 mm[Hg] Siri Barrera DO Work Phone: [facility] 01-14-2022 09:55-0400 Body height 154.9 cm Siri Barrera DO Work Phone: [facility] 01-14-2022 09:55-0400 Body mass index (BMI) [Ratio] 22.67 kg/m2 Siri Barrera DO Work Phone: [employer] 01-14-2022 09:55-0400 Body temperature 99.5 [degF] Siri Barrera DO Work Phone: [facility] 01-14-2022 09:55-0400 Body weight 54.43 kg Siri Barrera DO Work Phone: [facility] 04-13-2017 15:27-0400 BMI (Body Mass Index) 21.15 kg/m2 Marialuisa Huerta [facility] Work Phone: 04-13-2017 15:27-0400 Body Temperature 99.1 [degF] Marialuisa Huerta [facility] Work Phone: 04-13-2017 15:27-0400 BP Diastolic 64 mm[Hg] Marialuisa Huerta [facility] Work Phone: 04-13-2017 15:27-0400 BP Systolic 106 mm[Hg] Marialuisa Huerta [facility] Work Phone: 04-13-2017 15:27-0400 Height 162.6 cm Marialuisa Huerta [facility] Work Phone: 04-13-2017 15:27-0400 Pulse (Heart Rate) 89 /min Marialuisa Huerta [facility] Work Phone: 04-13-2017 15:27-0400 Weight 55.88 kg Marialuisa Huerta [facility] Work Phone: 03-10-2017 15:00-0400 BMI (Body Mass Index) 20.25 kg/m2 Marialuisa Huerta [facility] Work Phone: 03-10-2017 15:00-0400 Body Temperature 98.2 [degF] Marialuisa Huerta [facility] Work Phone: 03-10-2017 15:00-0400 BP Diastolic 72 mm[Hg] Marialuisa Huerta [facility] Work Phone: 03-10-2017 15:00-0400 BP Systolic 113 mm[Hg] Marialuisa Huerta [facility] Work Phone: 03-10-2017 15:00-0400 Height 162.6 cm Marialuisa Huerta [facility] Work Phone: 03-10-2017 15:00-0400 Pulse (Heart Rate) 87 /min Marialuisa Huerta [facility] Work Phone: 03-10-2017 15:00-0400 Weight 53.52 kg Marialuisa Huerta [facility] Work Phone: Encounters Encounter Date Encounter Type Care Provider Facility Start: 05-28-2024 End: 05-29-2024 Emergency department patient visit Linn Pozo DO Work Phone: [facility] ED Comment on above: Fall, initial encoun ter (Primary Dx); Contusion of left hand, initial encounter Start: 05-27-2024 End: 05-27-2024 Telephone encounter Ellie Contreras LPN [facility] Start: 05-25-2024 End: 05-25-2024 [facility]phone encounter [facility] Start: 05-23-2024 End: 05-23-2024 Emergency department patient visit LATRICIA Avani JIN [facility] Start: 05-18-2024 End: 05-18-2024 Telephone encounter Ellie Contreras LPN [facility] Start: 05-17-2024 End: 05-17-2024 Office consultation new/estab patient 80 min Tete Hoang MD Work Phone: [facility] Comment on above: Biliary dyskinesia ( Primary Dx); Gastroesophageal reflux disease without esophagitis; Right upper quadrant abdominal pain; Costochondritis Start: 05-17-2024 End: 05-17-2024 ambulatory TETE HOANG [facility] Start: 05-16-2024 [facility] Start: 05-07-2024 End: 05-07-2024 Emergency department patient visit [facility] Start: 05-03-2024 End: 05-03-2024 Emergency department patient visit Siri Chirag Barrera DO Work Phone: [facility] ED Comment on above: Pain of upper abdome n (Primary Dx) Start: 05-01-2024 End: 05-02-2024 Emergency department patient visit Linn Pozo DO Work Phone: [facility] ED Comment on above: Chest pain, unspecif ied type (Primary Dx) Start: 04-24-2024 End: 04-24-2024 Emergency department patient visit Siri Beard Barrera Work Phone: [facility] ED Comment on above: Muscle pain (Primary Dx) Start: 04-24-2024 End: 04-24-2024 Emergency department patient visit [facility] Start: 04-15-2024 End: 04-16-2024 Emergency department patient visit Blaise Delaney MD Work Phone: [facility] ED Comment on above: Flank pain (Primary Dx) Start: 03-30-2024 End: 03-30-2024 Emergency department patient visit [facility] Start: 03-29-2024 End: 03-29-2024 [facility] Start: 03-29-2024 End: 03-29-2024 Subsequent hospital visit by physician Tom Perkins MD Work Phone: [facility] Comment on above: Other acute back josé miguel n; Hematuria, unspecified type Start: 03-18-2024 End: 03-18-2024 Emergency department patient visit CHENCHO PINEDO [facility] Start: 01-22-2024 End: 01-22-2024 [facility] Start: 01-22-2024 End: 01-22-2024 Subsequent hospital visit by physician Tom Perkins MD Work Phone: [facility] Comment on above: Temperature intolera nce Start: 01-16-2024 End: 01-16-2024 [facility] Start: 01-15-2024 End: 01-15-2024 [facility] Start: 01-15-2024 End: 01-15-2024 Subsequent hospital visit by physician Tom Perkins MD Work Phone: [facility] Comment on above: Generalized abdomina l pain; Nasal and sinus discharge Start: 01-11-2024 End: 01-11-2024 Emergency department patient visit Chencho Pinedo MD [facility] ED Comment on above: Left lower quadrant abdominal pain (Primary Dx); BV (bacterial vaginosis) Start: 12-02-2023 End: 12-02-2023 ambulatory BRANDYN GHOSH [facility] Start: 11-30-2023 End: 12-01-2023 Emergency department patient visit [facility] Start: 11-30-2023 Encounter for other specified special examinations [facility] Start: 11-24-2023 End: 11-26-2023 ambulatory [facility] Start: 11-18-2023 End: 11-18-2023 ambulatory [facility] Start: 11-16-2023 End: 11-16-2023 ambulatory [facility] Start: 11-12-2023 ambulatory [facility] Start: 11-11-2023 End: 11-11-2023 [facility] Start: 11-08-2023 End: 11-08-2023 [facility] Start: 10-26-2023 ambulatory [facility] Start: 10-21-2023 End: 10-21-2023 [facility] Start: 05-23-2022 End: 05-23-2022 Subsequent hospital visit by physician Melissa Menesesor Work Phone: [facility] OR Comment on above: Epigastric pain Start: 05-13-2022 End: 05-13-2022 Subsequent hospital visit by physician Marialuisa Huerta DO Work Phone: [facility] Laboratory Comment on above: ASCUS with positive high risk HPV cervical Start: 04-03-2022 End: 04-03-2022 Emergency department patient visit Oneyda Dickens MD Work Phone: [facility] ED Comment on above: Otalgia of right ear (Primary Dx); Subacute otitis media, unspecified otitis media type Start: 03-26-2022 End: 03-26-2022 Subsequent hospital visit by physician [facility] Comment on above: Screening for malign ant neoplasm of cervix Start: 01-14-2022 End: 01-14-2022 Emergency department patient visit Siri Barrera DO Work Phone: [facility] ED Comment on above: Musculoskeletal back pain (Primary Dx) Start: 10-11-2019 End: 10-13-2019 Subsequent hospital visit by physician [facility] Ultrasound Room [facility] Ultrasound Comment on above: RUQ pain; Nausea; Bloating Start: 04-18-2019 End: 04-18-2019 Patient encounter procedure JOLLY AMBRIZ [facility] Facility:[facility] Start: 04-12-2019 End: 04-13-2019 Patient encounter procedure JOLLY AMBRIZ [facility] Facility:[facility] Start: 01-07-2019 End: 01-12-2019 Patient encounter status Siri Barrera DO Work Phone: [facility] Work Phone: Start: 09-06-2018 End: 09-06-2018 Emergency department patient visit MARIALUISA HUERTA [facility] Start: 04-21-2017 Ambulatory [facility] Start: 04-13-2017 End: 04-13-2017 Office outpatient visit 25 minutes Marialuisa Huerta Work Phone: [facility] Comment on above: Maxillary sinusitis, unspecified chronicity (Primary Dx);Attention deficit hyperactivity disorder (ADHD), combined type;Tobacco abuse Start: 03-10-2017 Office/outpatient vi sit, est, level 4 Marialuisa Huerta Work Phone: [facility] Procedures Date Procedure Procedure Detail Performing Clinician Start: 05-28-2024 Radex hand minimum 3 views Linn gonzalez DO Work Phone: Start: 05-07-2024 Urinalysis microscopic only Aiden Salcedo MD Work Phone: Start: 05-07-2024 Urinalysis, reagent strip without microscopy Aiden Salcedo MD Work Phone: Start: 05-07-2024 Complete blood count with white cell differential, automated Aiden Salcedo MD Work Phone: Start: 05-07-2024 End: 05-07-2024 Comprehensive metabolic panel Aiden carcamo MD Work Phone: Start: 05-01-2024 Comprehensive metabolic panel Linn Pozo DO Work Phone: Start: 05-01-2024 Radiologic exam chest single view Phillip martha R Sánchez DO Work Phone: Start: 05-01-2024 Ecg routine ecg w/least 12 lds w/i&r Linn Pozo DO Work Phone: Start: 04-15-2024 Urinalysis microscopic only Blaise Francis Jennifer san MD Work Phone: Start: 04-15-2024 Urine test visual color cmprsn meths Blaise Delaney MD Work Phone: Start: 04-15-2024 Comprehensive metabolic panel Blaise Penny Tammy george MD Work Phone: Start: 03-29-2024 Urnls dip stick/tablet reagent auto microscopy Brandyn Ghosh WHEEL ALIGNMENT TECHNICIAN - CN Work Phone: Start: 01-22-2024 Assay of free thyroxine Brandyn velasco WHEEL ALIGNMENT TECHNICIAN - CNM Work Phone: Start: 01-15-2024 ALLERGEN, FOOD, COMPREHENSIVE PROFILE 1 Roge Pitts MD Work Phone: Start: 01-15-2024 C-reactive protein Roge Pitts MD Work Phone: Start: 01-15-2024 Comprehensive metabolic panel Roge bailey MD Work Phone: Start: 01-11-2024 End: 01-11-2024 Smr prim src wet mount nfct agt Chencho Pinedo MD Start: 01-11-2024 Ct abdomen & pelvis w/contrast material Chencho Pinedo MD Start: 01-11-2024 Comprehensive metabolic panel Chencho Varma Start: 12-02-2023 Microscopic observation [Identifier] in Cervix by Cyto stain Chencho Pinedo MD Start: 05-23-2022 Colonoscopy Melissa Bridges DO Work Phone: Start: 05-23-2022 Esophagogastroduodenoscopy Melissa Snyder Roopa moyer DO Work Phone: Start: 03-26-2022 Microscopic observation [Identifier] in Cervix by Cyto stain Marialuisa Huerta DO Work Phone: Start: 01-14-2022 Urnls dip stick/tablet reagent auto microscopy Siri eBard Barrera DO Work Phone: Start: 01-14-2022 Assay of amylase Siri Beard Barrera DO Work Phone: Start: 01-14-2022 BASIC METABOLIC PANEL W/ REFLEX TO MG FOR LOW K Siri J Barrera DO Work Phone: Start: 01-14-2022 Hepatic function panel Siri Beard Barrera D O Work Phone: Start: 10-11-2019 Us abdominal real time w/image limited Melissa Bridges Work Phone: Start: 04-23-2017 Microscopic observation [Identifier] in Cervix by Cyto stain Siri Barrera DO Work Phone: Plan of Treatment Date Care Activity Detail Author Start: 2044 Shingles Vaccine (1 of 2) Shingles Vaccine (1 of 2) [facility] [place] [place] Start: 01-14-2034 COVID-19 Vaccine (#1) COVID-19 Vaccine (#1) [facility] [facility] Comment on above: Postponed from 01/06/1995 (Unavailable) Start: 01-14-2034 COVID-19 Vaccine () COVID-19 Vaccine ( season) [facility] Comment on above: Postponed from 04/03/2023 (Unavailable) Start: 05-20-2030 DTaP,Tdap and Td Vaccines (7 - Td or Tdap) DTaP,Tdap and Td Vaccines (7 - Td or Tdap) [facility] Start: 05-20-2030 DTaP/Tdap/Td vaccine (7 - Td or Tdap) DTaP/Tdap/Td vaccine (7 - Td or Tdap) [facility] Start: 05-20-2030 Tetanus vaccination [facility] Start: 12-01-2026 Screening for malignant neoplasm of cervix Pap smear [facility] Start: 05-17-2025 Tobacco Screening Tobacco Screening [facility] Start: 03-26-2025 Screening for malignant neoplasm of cervix Pap smear [facility] Start: 01-14-2025 DTaP/Tdap/Td vaccine (6 - Tdap) DTaP/Tdap/Td vaccine (6 - Tdap) [facility] Comment on above: Postponed from 2005 (Patient Refus ed) Start: 12-25-2024 Depression Screen Depression Screen [facility] Start: 08-30-2024 End: 08-30-2024 Patient encounter procedure 08/30/2024 9:00 AM EST Off ice Visit [facility] [address] [place] [address] Jolly Bender, DO [address] [place] [address] 6 wk post-op [address] Comment on above: 6 wk post-op [place] [id number] Start: 08-18-2024 End: 08-18-2024 Patient encounter procedure 08/18/2024 4:00 PM EST Off ice Visit [facility] [address] [place] [address] [address] [place] [address] Tom Perkins MD [address] [place] [address] [address] [place] [address] fu abd pain [facility] Comment on above: fu abd pain Start: 08-10-2024 End: 08-10-2024 Patient encounter procedure 08/10/2024 9:00 AM EST Off ice Visit [facility] [address] [place] [address] Bria Vance PA-C [address] [place] [address] 2 wk post-op BA 01/05 [facility] Comment on above: 2 wk post-op BA 01/05 Start: 07-25-2024 End: 07-25-2024 Admission to same day surgery center 07/25/2024 9:00 AM EST - 07/25/2024 11:00 AM EST Surgery [facility] [address] [place] [address], [place] [address] Jolly Bender, DO [address] [place] [address] HYSTERECTOMY VAGINAL LAPAROSCOPIC ROBOTIC ASSISTED POSS BAKARI OOPHORECTOMY, POSS LAP COLPOPEXY [facility] Comment on above: HYSTERECTOMY VAGINAL LAPAROSCOPIC ROBOTI C ASSISTED POSS BAKARI OOPHORECTOMY, POSS LAP COLPOPEXY Start: 07-25-2024 End: 07-25-2024 Laparoscopy w total hysterectomy uterus 250 gm/< HYSTERECTOMY VAGINAL LAPAROSCOPIC ROBOTIC ASSISTED Pelvic pain 07/25/2024 9:00 AM EST [facility] Start: 07-25-2024 Subsequent hospital visit by physician 07/25/2024 9:00 AM EST Hospital Encounter [facility] [address] [place] [address], [place] [address] Jolly Bender, DO [address] [place] [address] [facility] Start: 07-12-2024 End: 07-12-2024 Patient encounter procedure 07/12/2024 4:15 PM EST Off ice Visit [facility] Part [address] [place] [address] Jolly Bender, DO [address] [place] [address] discuss surgery, SHANNAN BA 01/05 [facility] Part [facility] Comment on above: discuss surgery, SHANNAN 01/05 Start: 06-23-2024 End: 06-23-2024 Admission to same day surgery center 06/23/2024 12:00 PM EST - 06/23/2024 2:00 PM EST Surgery [facility] [address] [place] [phone] Tete Hoang MD [address], [facility] [address] [place] [phone] LAPAROSCOPIC CHOLECYSTECTOMY [24436 (CPT )] [facility] Comment on above: LAPAROSCOPIC CHOLECYSTECTOMY [11202 (CPT )] Start: 06-23-2024 End: 06-23-2024 Laparoscopy surg cholecystectomy LAPAROSCOPIC CHOLECYSTECTOMY BILIARY HYPERKINESIA 06/23/2024 12:00 PM EST [facility] Start: 06-23-2024 Subsequent hospital visit by physician 06/23/2024 12:00 PM EST Hospital Encounter [facility] [address] [place] [phone] Tete Hoang MD [address], [facility] [address] [place] [phone] [facility] Start: 06-14-2024 End: 06-14-2024 Patient encounter procedure 06/14/2024 8:45 AM EST Off ice Visit [facility] Part [facility] [address] [facility] [address] [place] [address] Jolly Bender, DO [address] [place] [address] 6 wk post-op [facility] BA 01/05 [facility] Comment on above: 6 wk post-op [facility] 01/05 Start: 06-13-2024 End: 06-13-2024 Patient encounter procedure 06/13/2024 2:30 PM EST Procedure visit [facility] On [address] [phone] [facility] Start: 06-10-2024 End: 06-10-2024 Patient encounter procedure 06/10/2024 9:45 AM EST Off ice Visit [facility] [address] [place] [phone] Ashanti Quiñonez MD [address] [place] [address] [facility] Start: 06-09-2024 End: 06-09-2024 Patient encounter procedure 06/09/2024 11:00 AM EST Procedure visit [facility] On [address] [phone] [facility] Start: 05-30-2024 End: 05-30-2024 Patient encounter procedure 05/30/2024 9:00 AM EDT Off ice Visit [facility] [address] [place] [address] Jose Gomes MD [address] [place], [place] [id number] nausea, abdominal pain [facility] Comment on above: nausea, abdominal pain Start: 05-18-2024 End: 05-18-2024 Patient encounter procedure 05/18/2024 8:15 AM EDT Off ice Visit [facility] [address] [place] [address] Bria Vance PA-C [address] [place] [address] 2 wk post-op BA 6/5 [facility] Comment on above: 2 wk post-op BA 6/5 Start: 05-09-2024 End: 05-09-2024 Admission to same day surgery center 05/09/2024 11:00 AM EDT - 05/09/2024 1:00 PM EDT Surgery [facility] [address] [place] [address] Jolly Bender, DO [address] [place] [address] HYSTERECTOMY VAGINAL LAPAROSCOPIC ROBOTIC ASSISTED POSS BAKARI OOPHORECTOMY, POSS LAP COLPOPEXY [facility] Comment on above: HYSTERECTOMY VAGINAL LAPAROSCOPIC ROBOTI C ASSISTED POSS BAKARI OOPHORECTOMY, POSS LAP COLPOPEXY Start: 05-09-2024 End: 05-09-2024 Laparoscopy w total hysterectomy uterus 250 gm/< HYSTERECTOMY VAGINAL LAPAROSCOPIC ROBOTIC ASSISTED Pelvic pain 05/09/2024 11:00 AM EDT [facility] Start: 05-09-2024 Subsequent hospital visit by physician 05/09/2024 11:00 AM EDT Hospital Encounter [facility] [address] [place] [address], [place] [address] Jolly Bender, DO [address] [place] [address] [facility] Start: 04-26-2024 End: 04-26-2024 Patient encounter procedure 04/26/2024 3:30 PM EDT Off ice Visit [facility] [address] [facility] [address] [place] [address] Jolly Bender, DO [address] [place] [address] discuss surgery, SHANNAN BA 01/05 [facility] Part [facility] Comment on above: discuss surgery, SHANNAN BA 6 Start: 04-03-2024 COVID-19 Vaccine ( season) COVID-19 Vaccine ( season) [facility] Start: 04-03-2024 Influenza vaccination [facility] Start: 04-01-2024 End: 04-01-2024 Patient encounter procedure 04/01/2024 2:40 PM EDT Off ice Visit [facility] [address] [place] [address] [address] [place], [place] [id number] Tom Perkins MD [address] [facility] [address] [place] [address] SOMETHING GOING ON WITH HER EAR [facility] Comment on above: SOMETHING GOING ON WITH HER EAR Start: 03-03-2024 Influenza vaccination [facility] Start: 02-25-2024 End: 02-25-2024 Patient encounter procedure 02/25/2024 3:20 PM EDT Off ice Visit [facility] [address] [place] [address] [address] [place], [place] [id number] Tom Perkins MD [address] [facility] [address] [place], [place] [id number] abd pain.f/u [facility] Comment on above: abd pain.f/u Start: 05-28-2022 End: 05-28-2022 Patient encounter procedure 05/28/2022 Procedure visit Obstetrics and Gynecology Brandyn Ghosh, LITO - CNTanya [address] [facility] [address] [place], [place] [id number] [facility] OBST[facility]RICS [facility]YNECOLOG[facility] Part of [facility] Start: 05-23-2022 End: 05-23-2022 Admission to same day surgery center 05/23/2022 Surgery IP Unit Melissa Bridges DO [address] [facility] [address] [place] [id number] EGD ESOPHAGOGASTRODUODENOSCOPY - WITH BIOPSY [facility] OR Comment on above: EGD ESOPHAGOGASTRODUODENOSCOPY - WITH BI OPSY Start: 05-23-2022 End: 05-23-2022 Egd transoral biopsy single/multiple [facility] Start: 05-23-2022 Subsequent hospital visit by physician 05/23/2022 Hospital Encounter IP Unit Melissa Bridges I, [address] [facility] [address] [place] [address] [facility] Start: 05-23-2022 End: 05-23-2022 Colon ca scrn not hi rsk ind COLORECTAL CANCER SCREENI NG, NOT HIGH RISK Epigastric pain 05/23/2022 12:50 PM EDT [facility] Start: 05-23-2022 End: 05-23-2022 Egd transoral biopsy single/multiple EGD ESOPHAGOGASTRODUODENOSCOPY Epigastric pain 05/23/2022 12:50 PM EDT [facility] Start: 04-03-2022 Influenza vaccination [facility] Start: 03-26-2022 End: 03-26-2022 Patient encounter procedure 03/26/2022 Office Visit Obstetrics and Gynecology Brandyn Ghosh APRN - EUN [address] [facility] [address] [place] [address] [facility] Start: 03-03-2022 Influenza vaccination Flu vaccine (#1) [facility] Start: 01-15-2022 End: 01-15-2022 Patient encounter procedure 01/15/2022 Office Visit General Surgery Melissa Bridges I [address] [facility] [address] [place] [address] [facility] GENERAL SURGERY Part [facility] Start: 04-23-2020 Cervical cancer screen Cervical cancer screen [facility] [place], [place] Start: 04-23-2020 Screening for malignant neoplasm of cervix Pap smear [facility] Start: 02-29-2020 End: 02-29-2020 Office Visit 02/29/2020 Office Visit Obstetrics and Gynecology Brandyn Ghosh APRN - EUN [address] [facility] [address] [place] [address] [facility] Start: 02-25-2020 Pneumococcal 0-64 years Vaccine (1 of 1 - PPSV23) Pneumococcal 0-64 years Vaccine (1 of 1 - PPSV23) [place], [place] Comment on above: Postponed from 2000 (Insurance / F inancial) Start: 04-03-2019 Influenza vaccination Flu vaccine (#1) [place], [place] Start: 04-03-2017 Influenza vaccination SEQUENTIAL INFLUENZA VACCINE (#1) [facility] Work Phone: Start: 04-03-2017 SEQUENTIAL INFLUENZA VACCINE (#1) SEQUENTIAL INFLUENZA VACCINE (#1) [facility] Work Phone: Start: 2015 Screening for malignant neoplasm of cervix CERVICAL CANCER SCREENING DISCUSSION [facility] Start: 2012 Adult BMI Screening Adult BMI Screening [facility] Start: 2009 HIV screening HIV SCREENING DISCUSSION [facility] Start: 2006 Depression Screen Depression Screen [facility] Start: 2006 Depression Screening Depression Screening [facility] Start: 2005 DTaP/Tdap/Td vaccine (6 - Tdap) DTaP/Tdap/Td vaccine (6 - Tdap) [facility] Start: 2005 HPV vaccine (1 - 2-dose series) HPV vaccine (1 - 2-dose series) [place], [place] Start: 2005 HPV VACCINES (1 of 3 - Female 3 Dose Series) HPV VACCINES (1 of 3 - Female 3 Dose Series) [facility] Work Phone: Start: 2005 Vaccination for human papillomavirus HPV VACCINES (1 of 3 - Female 3 Dose Series) [facility] Work Phone: Start: 2000 Pneumococcal 0-64 years Vaccine (1 - PCV) Pneumococcal 0-64 years Vaccine (1 - PCV) [facility] Start: 1999 COVID-19 Vaccine (1) COVID-19 Vaccine (1) [facility] Start: 1995 Varicella vaccine (1 of 2 - 2-dose childhood series) Varicella vaccine (1 of 2 - 2-dose childhood series) [facility] Start: 01-06-1995 COVID-19 Vaccine (#1) COVID-19 Vaccine (#1) [facility] Start: 1994 Cytopathology procedure, preparation of smear, genital source PAP SMEAR [facility] Work Phone: Start: 1994 Hepatitis C screening HEPATITIS C VIRUS SCREENING [facility] Start: 1994 Screening for malignant neoplasm of cervix PAP SMEAR [facility] Work Phone: Start: 1994 TETANUS EVERY 10 YR TETANUS EVERY 10 YR [facility] Work Phone: Start: 1994 Tetanus vaccination TETANUS EVERY 10 YR [facility] Work Phone: C.trachomatis N.gono rrhoeae DNA C.trachomatis N.gonorrhoeae DNA Microbiology STAT 01/11/2024 1:25 PM EDT [facility] Celiac Reflex Panel Celiac Refle x Panel Lab Routine Generalized abdominal pain 01/15/2024 2:19 PM EDT [facility] End: 01-15-2024 Culture, Nasal Culture, Nasal Microbiology Routine Nasal and sinus discharge 1 Occurrences starting 01/15/2024 until 01/15/2024 [facility] Comment on above: 1 Occurrences starting 01/15/2024 until 01/15/2024 End: 01-11-2024 Culture, Urine [facility] Comment on above: One Time for 1 Occurrences starting 01/01 until 01/11/2024 End: 03-29-2024 Culture, Urine [facility] Comment on above: 1 Occurrences starting 03/29/2024 until 03/29/2024 End: 01-15-2024 Culture, Wound [facility] Comment on above: Once for 1 Occurrences starting 01/15/20 until 01/15/2024 End: 03-26-2022 Cytopathology procedure, preparation of smear, genital source PAP SMEAR Lab Routine Screening for malignant neoplasm of cervix 1 Occurrences starting 03/26/2022 until 03/26/2022 [facility] Work Phone: Comment on above: 1 Occurrences starting 03/26/2022 until 03/26/2022 EKG 12 Lead EKG 12 Lead ECG STAT 05/01/2024 10:14 PM EDT [facility] Food Comprehensive Panel Food Co mprehensive Panel Lab Routine Generalized abdominal pain 01/15/2024 2:19 PM EDT [facility] H. PYLORI DETECTION H. PYLORI DE TECTION Lab Routine Epigastric pain Release Upon Ordering for 1 Occurrences starting 05/23/2022 [facility] Phone: Comment on above: Release Upon Ordering for 1 Occurrences starting 05/23/2022 End: 05-23-2022 INITIATE PACU OXYGEN THERAPY PROTOCOL Initiate PACU Oxygen Therapy Protocol Respiratory Care Routine Continuous until discontinued starting 05/23/2022 [facility] Phone: Comment on above: Continuous until discontinued starting 1 End: 05-13-2022 Surgical Pathology Surgical Pathology Lab Routi ne ASCUS with positive high risk HPV cervical 1 Occurrences starting 05/13/2022 until 05/13/2022 [facility] Work Phone: Comment on above: 1 Occurrences starting 05/13/2022 until 05/13/2022 Surgical Pathology Surgical Path ology Lab Routine Epigastric pain Release Upon Ordering for 1 Occurrences starting 05/23/2022 [employer] Phone: Comment on above: Release Upon Ordering for 1 Occurrences starting 05/23/2022 End: 05-13-2022 SURGICAL PATHOLOGY REPORT SURGICAL PATHOLOGY REPORT La b Routine Once for 1 Occurrences starting 05/13/2022 until 05/13/2022 [employer] Phone: Comment on above: Once for 1 Occurrences starting 05/13/20 until 05/13/2022 End: 01-22-2024 Thyroid Peroxidase Antibody [facility] Comment on above: 1 Occurrences starting 01/22/2024 until 01/22/2024 XR Hand - left 3 Views XR HAND L EFT (MIN 3 VIEWS) Imaging STAT 05/28/2024 11:20 PM EDT [employer] Immunizations Immunization Date Immunization Notes Care Provider Fa cility 05-20-2020 tetanus toxoid, redu saran diphtheria toxoid, and acellular pertussis vaccine, adsorbed Siri Barrear DO Work Phone: [facility] 11-10-2017 measles, mumps and rubella virus vaccine Mth Room [facility] 02-13-2000 diphtheria, tetanus toxoids and acellular pertussis vaccine, unspecified formulation Chencho Pinedo MD [facility] 02-13-2000 measles, mumps and rubella virus vaccine Chencho Pinedo MD [facility] 02-13-2000 poliovirus vaccine, inactivated Chencho Pinedo MD [facility] 04-27-1997 diphtheria, tetanus toxoids and acellular pertussis vaccine, unspecified formulation Chencho Pinedo MD [facility] 04-27-1997 haemophilus influenz ae type b vaccine, conjugate unspecified formulation Chencho Pinedo MD [facility] 04-27-1997 measles, mumps and rubella virus vaccine Chencho Pinedo MD [facility] 03-05-1995 DTP-Haemophilus influenzae type b conjugate vaccine Chencho Pinedo MD [facility] 03-05-1995 hepatitis B vaccine, pediatric or pediatric/adolescent dosage Chencho Pinedo MD [facility] 03-05-1995 trivalent poliovirus vaccine, live, oral Chencho Pinedo MD [facility] 1994 DTP-Haemophilus influenzae type b conjugate vaccine Chencho Pinedo MD [facility] 1994 trivalent poliovirus vaccine, live, oral Chencho Pinedo MD [facility] 1994 DTP-Haemophilus influenzae type b conjugate vaccine Chencho Pinedo MD [facility] 1994 hepatitis B vaccine, pediatric or pediatric/adolescent dosage Chencho Pinedo MD [facility] 1994 trivalent poliovirus vaccine, live, oral Chencho Pinedo MD [facility] 1994 hepatitis B vaccine, pediatric or pediatric/adolescent dosage Chencho Pinedo MD [facility] Payers Date Payer Category Payer Medicaid [employer] [id number] 2023-Present [phone] [address] [place] [address] [id number] 2023 Medicaid HMO [employer] [id number] 2019 Unknown 2014 Unknown [employer] [facility]1983 xxxxxxxxxxxx 2014-Present [phone] [place] [address] xxxxxxxxxxxx [id number] 2003 Unknown [id number] 2.16.840.1.745738.3.249.13 1994 Unknown [id number] 2.16.840.1.294155.3.579.2.196 1994 Unknown [id number] 2.16.840.1.418384.3.579.2.196 1994 Unknown [id number] 2.16.840.1.697611.3.579.2.182 1994 Unknown [id number] 2.16.840.1.832509.3.579.2.903 1994 Unknown [id number] 2.16.840.1.050519.3.579.2.903 1994 Unknown [id number] 2.16.840.1.126954.3.579.2.983 1994 Unknown [id number] 2.16.840.1.563531.3.579.2.128 6 1994 Unknown [id number] 2.16.840.1.785060.3.579.2.128 6 1994 Unknown [id number] 2.16.840.1.482689.3.579.2.128 6 1994 Unknown [id number] 2.16.840.1.632333.3.579.2.128 6 1994 Unknown [id number] 2.16.840.1.809493.3.579.2.128 6 1994 Unknown [id number] 2.16.840.1.675288.3.579.2.128 6 1994 Unknown [id number] 2.16.840.1.050067.3.579.2.128 6 1994 Unknown [id number] 2.16.840.1.768627.3.579.2.173 1994 Unknown [id number] 2.16.840.1.129922.3.579.2.173 1994 Unknown [id number] 2.16.840.1.201126.3.579.2.173 1994 Unknown [id number] 2.16.840.1.590729.3.579.2.173 1994 Unknown [id number] 2.16.840.1.480440.3.579.2.173 1994 Unknown [id number] 2.16.840.1.653834.3.579.2.173 1994 Unknown [id number] 2.16.840.1.820299.3.579.2.173 1994 Unknown [id number] 2.16.840.1.257022.3.579.2.173 1994 Unknown [id number] 2.16.840.1.765941.3.579.2.173 1994 Unknown [id number] 2.16.840.1.752110.3.579.2.173 1994 Unknown [id number] 2.16.840.1.184578.3.579.2.173 1994 Unknown [id number] 2.16.840.1.922895.3.579.2.173 1994 Unknown [id number] 2.16.840.1.265096.3.579.2.173 1994 Unknown [id number] 2.16.840.1.293456.3.579.2.173 1994 Unknown [id number] 2.16.840.1.883865.3.579.2.173 1994 Unknown [id number] 2.16.840.1.386741.3.579.2.173 1994 Unknown [id number] 2.16.840.1.207713.3.579.2.173 1994 Unknown [id number] 2.16.840.1.748070.3.579.2.173 1994 Unknown [id number] 2.16.840.1.514135.3.579.2.173 1994 Unknown [id number] 2.16.840.1.985434.3.579.2.173 1994 Unknown [id number] 2.16.840.1.439542.3.579.2.173 1994 Unknown [id number] 2.16.840.1.954938.3.579.2.173 Social History Date Type Detail Facility Start: 04-13-2017 End: 10-06-2019 Tobacco smoking status ILIS Current every day smoker [facility] Work Phone: Start: 04-13-2017 End: 05-03-2024 Cigarettes smoked current (pack per day) - Reported [facility] Start: 1994 Sex Assigned At Not on file [facility] Phone: Start: 01-01-2019 End: 01-01-2021 History of tobacco use [facility] Start: 10-06-2019 End: 05-23-2022 Alcohol intake Current non-drinker of alcohol (finding) [facility] Start: 01-04-2022 End: 05-23-2022 Exposure to SARS-CoV-2 (event) Not sure [facility] Start: 03-11-2022 End: 01-01-2024 Tobacco smoking status NHIS Ex-smoker [facility] Start: 01-01-2019 End: 01-01-2021 History of tobacco use Current smoker [facility] Work Phone: Start: 03-11-2022 End: 01-01-2024 Tobacco use and exposure Smokeless tobacco non-user [facility] Phone: Start: 01-01-2019 End: 01-01-2021 History of tobacco use [facility] Start: 01-11-2024 End: 05-28-2024 Alcohol intake Ex-drinker (finding) [facility] Start: 11-11-2023 End: 05-03-2024 Alcohol Use Disorder Identification Test - Consumption [AUDIT-C] [facility] How often to you hav e a drink containing alcohol? Never [facility] How many standard dr inks containing alcohol do you have on a typical day? Patient does not drink [facility] Start: 04-24-2024 End: 05-03-2024 Alcoholic beverage intake Current drinker of alcohol (finding) [facility] How often to you hav e a drink containing alcohol? 4 or more times a week [facility] How many standard dr inks containing alcohol do you have on a typical day? 1 or 2 [facility] Start: 04-24-2024 Alcohol Comment socially [facility] Start: 05-07-2024 Tobacco smoking status [facility] Tobacco smoking consumption unknown [facility] Start: 03-06-2015 Sex Female (finding) [facility] Clinical Notes 04-03-2022 to 05-29-2024 Discharge InstructionsTelephone Encounter - Ellie Contreras LPN - 05/27/2024 1:37 PM EDTTelephone Encounter - Ellie Contreras LPN - 05/27/2024 1:37 PM EDTTete Hoang MD - 05/17/2024 1:30 PM EDT Note Date & Type Note Facility 05-29-2024 Hospital Discharg e instructions Linn Pozo DO - 05/29/2024 12:01 AM EDT Please follow-up with your primary care provider in 2 days for reevaluation. Okay to take Tylenol for pain control elevate hand when able and apply ice. Return to ER for worsening symptoms. documented in this encounter [facility] 05-27-2024 Miscellaneous Notes Patient stated he previously tested posted for H pylor and would like Dr Hoang to recheck this as she states it may have been a false positive as she had urine it in. [employer] advised patient per Dr Hoang she needs to see Gi for this as this is something that our office does not do. [employer] gave patient [facility] Gi contact information to call to get an appointment documented in this encounter [facility] 05-27-2024 Telephone encounter Note Patient stated he previously tested posted for H pylor and would like Dr Hoang to recheck this as she states it may have been a false positive as she had urine it in. [employer] advised patient per Dr Hoang she needs to see Gi for this as this is something that our office does not do. [employer] gave patient [facility] Gi contact information to call to get an appointment [facility] 05-25-2024 Miscellaneous Notes Patient stated she just ate lunch which was turkey sand which, with may made of olive oil and is having right side abdominal pain, patient stated she is still having chest pain and shoulder pain . Patient stated she did not try the Volteran gel that was given at her office visit for Costochondritis as she states the label on the prescription states not to take if you have an ulcer. Per Julianna Gómez it is safe to take as this is not a manager long term care mediation. Patient stated she is freaked out as people she knows are telling her that her gallbladder will explode. [employer] advised patient that signs and symptoms to look for would be fever, chills , nausea, vomiting , increased pain that do not go away. documented in this encounter [facility] 05-25-2024 Telephone encounter Note Patient stated she just ate lunch which was turkey sand which, with may made of olive oil and is having right side abdominal pain, patient stated she is still having chest pain and shoulder pain . Patient stated she did not try the Volteran gel that was given at her office visit for Costochondritis as she states the label on the prescription states not to take if you have an ulcer. Per Julianna Gómez it is safe to take as this is not a manager long term care mediation. Patient stated she is freaked out as people she knows are telling her that her gallbladder will explode. [employer] advised patient that signs and symptoms to look for would be fever, chills , nausea, vomiting , increased pain that do not go away. [facility] 05-18-2024 Miscellaneous Notes Spoke with patient to let her know surgery is scheduled on 06/23/24 at 12:00PM, patient to arrive at entrance A TTH at 10:00AM, pre op testing is 06/09/24 at 11:00AM. documented in this encounter [facility] 05-18-2024 Telephone encounter Note Spoke with patient to let her know surgery is scheduled on 06/23/24 at 12:00PM, patient to arrive at entrance A T[facility] at 10:00AM, pre op testing is 06/09/24 at 11:00AM. [facility] 05-17-2024 History of Presen t illness Narrative Hepatobiliary and Pancreas Surgery Consultation Treatment Team PCP: Dr. Tom Perkins MD Chief Complaint: Biliary hyperkinesia Abdominal pain HPI: Sari Moulton is a 28 y.o. female presenting for evaluation of biliary hyperkinesia. Patient was seen in the ED on 10/21/23 with LLQ abdominal pain radiating to the LUQ. CT AP at that time showed a small bowel intussusception in the mid lower abdomen/pelvis without obstruction. She was again seen in the ED on 11/08/23 with left flank pain radiating to the LLQ. CT AP at this time was notable for possible pelvic congestion syndrome. No evidence of intussusception. She then had a HIDA scan on 11/24/23, with biliary ejection fraction of 79%. She was again seen in the ED on 01/11/24 with ongoing lower abdominal pain and lower back pain along with increased frequency of bowel movements. CT AP at that time showed multiple fluid-filled loops of small bowel, primarily in the lower abdomen as well as a bulky uterus with venous congestion in the uterus and ovarian veins, primarily on the left side. Today, patient reports right sided abdominal pain radiating up toward her ribs. The pain is worst at night, though has improved since she stopped eating 3-4 hours before bedtime. She also describes a dull chest pain, similar to her nipple being ripped out of her breast. She notes increased anxiety regarding this pain. She reports a history of colonoscopy/EGD with Dr. Bridges 18 months ago. She has lost 7 pounds in 3 weeks. Patient is scheduled for a hysterectomy on 07/25/[address] Alysia Rosales due to pelvic congestion. ROS: See HPI. Past Medical History: Past Medical History: Diagnosis Date Pelvic congestion syndrome Past Surgical History: Past Surgical History: Procedure Laterality Date ESOPHAGOGASTRODUODENOSCOPY OTHER SURGICAL HISTORY tubal removal Family History: Family History Problem Relation Age of Onset COPD Mother Hypertension Father Social History: Social History Socioeconomic History Marital status: Single Spouse name: Not on file Number of children: Not on file Years of education: Not on file Highest education level: Not on file Occupational History Not on file Tobacco Use Smoking status: Former Types: Cigarettes Smokeless tobacco: Never Substance and Sexual Activity Alcohol use: Not Currently Drug use: Not on file Sexual activity: Not on file Other Topics Concern Not on file Social History Narrative Not on file Social Determinants of Health Financial Resource Strain: Not on file Food Insecurity: Not on file (12/26/2023) Transportation Needs: Not on file Physical Activity: Sufficiently Active (01/01/2024) [facility] [employer] [facility] Exercise Vital Sign Days of Exercise per Week: 6 days Minutes of Exercise per Session: 150+ min Stress: Not on file Social Connections: Not on file Interpersonal Safety: Not on file Housing Instability: Not on file Allergies: Not on File Current Medications: Current Outpatient Medications Medication Sig Dispense Refill cetirizine (ZyrTEC) 10 mg tablet Take 1 tablet (10 mg total) by mouth. fluticasone propionate (FLONASE) 50 mcg/actuation nasal spray 1 spray. nicotine (NICODERM CQ) 21 mg/[address] 1 patch on the skin. omeprazole (PriLOSEC) 20 mg capsule Take 1 capsule (20 mg total) by mouth in the morning and at bedtime. sucralfate (CARAFATE) 1 gram tablet Take 1 tablet (1 g total) by mouth in the morning and 1 tablet (1 g total) at noon and 1 tablet (1 g total) in the evening and 1 tablet (1 g total) before bedtime. ondansetron (ZOFRAN) 4 mg tablet Take 1 tablet (4 mg total) by mouth as needed for nausea or vomiting. (Patient not taking: Reported on 05/17/2024) No current facility-administered medications for this visit. Objective: Vitals Vitals: 05/17/24 1309 BP: 121/69 Pulse: 77 Physical Exam Constitutional: She is oriented to person, place, and time. Appears well-developed and well-nourished. HENT: Normocephalic and atraumatic. Eyes: EOM are normal. Pupils are equal, round, and reactive to light. Neck: Normal range of motion. No tracheal deviation present. Cardiovascular: Normal rate, regular rhythm and normal heart sounds. Pulmonary/Chest Effort normal and breath sounds normal. Abdominal: Soft. Bowel sounds are normal. She exhibits no distension, no ascites and no mass. There is mild epigastric and right upper quadrant tenderness. There is no rebound and no guarding. No hernia. Neurological: She is alert and oriented to person, place, and time. Skin Skin is warm. Psychiatric: Normal mood and affect. Behavior is normal. Judgment and thought content normal. Recent Labs Results No visits with results within 1 Month(s) from this visit. Latest known visit with results is: No results found for any previous visit. Recent Radiology Studies US Abdomen limited 10/11/23: IMPRESSION: Overall, unremarkable right upper quadrant abdominal ultrasound. CT AP w/ contrast 10/21/23: IMPRESSION: *Small bowel intussusception in the mid lower abdomen/pelvis, which are usually transient in nature. There is no bowel obstruction. *Otherwise, unremarkable exam. CT AP w/ contrast 11/08/23: IMPRESSION: *No acute intra-abdominal or intrapelvic process. Currently, there is no evidence of intussusception. *Chronic increased vascular collateralization in the region of the left ovary could indicate pelvic congestion syndrome. HIDA w/ EF 11/24/23: *No acute cholecystitis. *Gallbladder ejection fraction is 79% CT AP 01/11/24: IMPRESSION: 1. Multiple fluid-filled loops of small bowel, primarily in the lower abdomen. May represent early illness or ingested material. 2. The uterus is bulky in appearance and heterogenous enhancement. Venous congestion of the uterus and ovarian veins, primarily on the left side. Recommend correlation with pelvic ultrasound and consider referral to interventional radiology. 3. Mild free fluid in the pelvis. 4. Mild inflammatory change in the region of the tip of coccyx, likely due to decubitus position, correlate with physical exam. 5. The bladder is prominently distended. Reviewed imaging personally and agree with the official interpretation. Assessment/Plan Biliary hyperkinesia Abdominal pain Chostocondritis As patient is experiencing abdominal pain and has a biliary ejection fraction of 79%, it is going to be potentially helpful for her to undergo a laparoscopic cholecystectomy. We discussed the procedure as well as all risks, benefits and alternative treatments. Risk of bleeding, infection, bile duct leaking is all less than 1%. Advised the patient that because it is not certain her pain is related to her gallbladder, a cholecystectomy may not relieve her abdominal pain. All questions were answered and informed consent was signed. Differential diagnosis for patient's abdominal pain includes gastric ulcer. Recommend patient continue taking sucralfate and omeprazole. A refill of omeprazole was sent today, per patient's request.Patient previously followed with Dr. Bridges, General Surgery, though reports she is unable to see her currently as she is on medical leave. A referral to Gastroenterology was placed today. Recommend patient establish care to discuss persistent abdominal pain. Discussed with the patient that her chest pain is most consistent with costochondritis as it is reproducible with palpation. As she has a history of gastric ulcers, I do not recommend she take NSAIDs for this. A prescription for topical diclofenac was sent today. As patient is experiencing intermittent chest pain, we will obtain risk stratification and optimization by meat press operator prior to surgery. Scribed for and in the presence of Tete Hoang MD by Alma Eastman (scribe). Alma Eastman 05/17/24 1400 PROVIDER STATEMENT I Tete Hoang MD personally performed the services described in the documentation, as scribed by Alma Eastman in my presence, and it is both accurate and complete. documented in this encounter [facility] 05-07-2024 Emergency department Note At bedside to discharge patient. All paperwork, medication, education, and follow-up gone over. Pt verbalizes understanding and denies any questions or concerns. VSS, RR is regular and unlabored. Pt does not appear to be in any distress at this time, states those medications did make me feel a little better . [place] is steady with ambulation out of the ED. [facility] 05-07-2024 Emergency department Note At bedside to discharge patient. All paperwork, medication, education, and follow-up gone over. Pt verbalizes understanding and denies any questions or concerns. VSS, RR is regular and unlabored. Pt does not appear to be in any distress at this time, states those medications did make me feel a little better . [place] is steady with ambulation out of the ED. Emergency Department Report [facility] EM[facility] MEDICINE Service Date:.05/07/24 PCP: Tom Perkins Chief Complaint: Chief Complaint Patient presents with Abdominal Pain RUQ pain on and off for the past week. HPI Sari Moluton is a 28 y.o. female presents to the ED today due to intermittent abdominal for few months but worsening over the last 5 days. The patient states that she is scheduled follow up with outpatient surgery. Patient states that sometimes food does exacerbate her symptoms. Pain is been worsening with nausea no fevers chills no dysuria or frequency. The patient denies any shortness breath or chest pain. The patient denies any maroon or tarry stools. Patient did have a outpatient HIDA scan in 2023 that was unremarkable. The patient denies any maroon or tarry stools presents now for increasing abdominal pain in the right upper quadrant and upper abdomen region. The patient denies any dysuria frequency pain does radiate to her flank or back. The patient was told she may have a history of reflux. Review of Systems: Review of Systems Constitutional: Negative for fever. HENT: Negative for congestion. Eyes: Negative for pain. Respiratory: Negative for shortness of breath. Gastrointestinal: Positive for abdominal pain and nausea. Negative for blood in stool. Endocrine: Negative for polyuria. Genitourinary: Negative for flank pain. Musculoskeletal: Negative for back pain. Skin: Negative for wound. Neurological: Negative for headaches. Psychiatric/Behavioral: Negative for confusion. The patient is nervous/anxious. All other systems reviewed and are negative. Past Medical History: No past medical history on file. Past Surgical History: No past surgical history on file. Allergies: Allergies Allergen Reactions Penicillins Hives Medications: Patient's Medications New Prescriptions HYDROXYZINE PAMOATE 25 MG CAPSULE Take 1 capsule by mouth 3 times daily as needed for Anxiety. HYOSCYAMINE (LEVSIN) 0.125 MG TABLET Take 1 tablet by mouth every 4 hours as needed for Cramping. ONDANSETRON 4 MG TAB DISPERSIBLE TABLET Take 1 tablet by mouth 4 times daily as needed for Nausea / Vomiting. Place on tongue SUCRALFATE 1 G TABLET Take 1 tablet by mouth every 6 hours. Previous Medications No medications on file Modified Medications No medications on file Discontinued Medications No medications on file Family History: History reviewed. No pertinent family history. Social History: Social History Socioeconomic History Marital status: Single Spouse name: Not on file Number of children: Not on file Years of education: Not on file Highest education level: Not on file Occupational History Not on file Tobacco Use Smoking status: Unknown Smokeless tobacco: Never Vaping Use Vaping status: Some Days Substance and Sexual Activity Alcohol use: Not Currently Drug use: Yes Types: Marijuana Sexual activity: Not on file Other Topics Concern Not on file Social History Narrative Not on file Social Determinants of Health Financial Resource Strain: Not on file Food Insecurity: Not on file (12/26/2023) Transportation Needs: Not on file Physical Activity: Sufficiently Active (01/01/2024) Received from [facility] Exercise Vital Sign Days of Exercise per Week: 6 days Minutes of Exercise per Session: 150+ min Stress: Not on file Social Connections: Not on file Intimate Partner Violence: Not on file Housing Stability: Not on file Physical Exam: Physical Exam Constitutional: General: She is not in acute distress. Appearance: She is not toxic-appearing. HENT: Head: Normocephalic and atraumatic. Nose: Nose normal. Mouth/Throat: Pharynx: Oropharynx is clear. Eyes: Extraocular Movements: Extraocular movements intact. Pupils: Pupils are equal, round, and reactive to light. Cardiovascular: Rate and Rhythm: Normal rate and regular rhythm. Heart sounds: Normal heart sounds. Pulmonary: Effort: Pulmonary effort is normal. Breath sounds: Normal breath sounds. Abdominal: Palpations: Abdomen is soft. Tenderness: There is abdominal tenderness in the epigastric area. There is no right CVA tenderness, left CVA tenderness or guarding. Negative signs include Yung's sign and McBurney's sign. Musculoskeletal: General: Normal range of motion. Cervical back: Normal range of motion and neck supple. Skin: General: Skin is warm. Capillary Refill: Capillary refill takes less than 2 seconds. Findings: No erythema. Neurological: General: No focal deficit present. Mental Status: She is alert and oriented to person, place, and time. Psychiatric: Mood and Affect: Mood normal. Vital Signs During ED Visit Patient Vitals for the past 24 hrs: BP Temp Temp src Pulse Resp SpO2 05/07/24 1124 141/71 -- -- -- -- 99 % 05/07/24 1123 -- 99.6 F (37.6 C) Temporal 76 14 99 % Orders/Results: Orders Placed This Encounter CBC, EDIF, PLATELET COMPREHENSIVE METABOLIC PANEL LIPASE GI cocktail: alum/mag hydrox-simethicone(30ml)+lidocai ne 2%(10ml) oral suspension 40 mL hyoscyamine (ANASPAZ) disintegrating tablet 0.125 mg faMOTIdine (PEPCID) tablet 20 mg Ondansetron 4 MG Tab Dispersible tablet Sucralfate 1 g tablet hyoscyamine (Levsin) 0.125 MG tablet hydrOXYzine pamoate 25 MG capsule URINALYSIS, MACRO URINE MICROSCOPIC HCG QUALITATIVE, URINE Results for orders placed or performed during the hospital encounter of 05/07/24 CBC, EDIF, PLATELET Result Value Ref Range WBC (WHITE BLOOD COUNT) 6.9 3.6 - 11.0 10*3/uL RBC 3.68 (L) 4.0 - 5.4 10*6/uL HEMOGLOBIN (HGB) 12.6 12.0 - 16.0 G/DL HEMATOCRIT (HCT) 35.6 (L) 36.0 - 48.0 % MEAN CELL VOLUME 96.8 80.0 - 100.0 FL Mean Cell HGB 34.2 26.0 - 35.0 PG MEAN CELL HGB CONCENTRATION 35.3 27.0 - 37.0 G/DL RBC DISTRIBUTION 12.7 11.5 - 14.5 % PLATELET COUNT 231 130 - 400 10*3/uL MEAN PLATELET VOLUME 7.3 (L) 7.4 - 11.0 FL DIFFERENTIAL TYPE AUTO DIFF % NEUTROPHILS 69.0 37.0 - 75.0 % LYMPHOCYTE 22.8 20.0 - 55.0 % MONOCYTE % 6.6 0.0 - 10.0 % EOSINOPHIL % 0.8 0.0 - 11.0 % BASOPHIL % 0.8 0.0 - 2.0 % Absolute Neutrophil Count 4.8 1.4 - 6.5 10*3/uL LYMPHOCYTES, ABSOLUTE 1.6 1.2 - 3.4 10*3/uL MONOCYTES, ABSOLUTE 0.5 0.0 - 0.7 10*3/uL ABSOLUTE EOSINOPHIL COUNT 0.1 0.0 - 0.7 10*3/uL ABSOLUTE BASOPHIL COUNT 0.1 0.0 - 0.2 10*3/uL COMPREHENSIVE METABOLIC PANEL Result Value Ref Range Glucose 86 70 - 100 MG/DL BUN 8 7 - 20 MG/DL CREATININE SERUM 0.70 0.7 - 1.2 MG/DL SODIUM 140 137 - 145 MMOL/L POTASSIUM 4.3 3.5 - 5.1 MMOL/L CHLORIDE 110 (H) 98 - 107 MMOL/L CALCIUM 8.7 8.4 - 10.2 MG/DL PROTEIN, TOTAL 7.2 6.3 - 8.2 GM/DL Albumin 4.2 3.5 - 5.0 G/dl BILIRUBIN, TOTAL 0.7 0.2 - 1.3 MG/DL AST 24 14 - 36 IU/L ALKALINE PHOSPHATASE 44 38 - 126 IU/L CARBON DIOXIDE (CO2) 23 22 - 30 MMOL/L A/G Ratio 1.4 1.3 - 2.2 RATIO ALT 17 <35 IU/L ESTIMATED GFR, NON AMER 105 ml/min/1.73sq.m ESTIMATED GFR, 127 ml/min/1.73sq.m GFR COMMENT Average GFR for 18-29 years old = 116. LIPASE Result Value Ref Range LIPASE 44 23 - 300 U/L BETA HCG, QUAL, BLOOD Result Value Ref Range BETA HCG (QUAL), SERUM NEGATIVE URINALYSIS, MACRO Result Value Ref Range COLOR, URINE LIGHT YELLOW (A) YELLOW APPEARANCE, URINE CLEAR CLEAR Specific [place], Urine 1.010 1.010 - 1.025 PH URINE 7.5 (H) 5.0 - 7.0 Urine Protein NEGATIVE NEGATIVE mg/dl GLUCOSE, URINE NEGATIVE NEGATIVE mg/dl KETONES, URINE NEGATIVE NEGATIVE mg/dl BILIRUBIN, URINE NEGATIVE NEGATIVE BLOOD, URINE DIPSTICK NEGATIVE NEGATIVE NITRITES, URINE NEGATIVE NEGATIVE UROBILINOGEN, URINE 0.2 0.2 - 1.0 E.U./dL LEUKOCYTE ESTERASE, URINE NEGATIVE NEGATIVE URINE MICROSCOPIC Result Value Ref Range WBC, URINE 1 TO 5 NEGATIVE /HPF RBC, URINE NEGATIVE NEGATIVE /HPF Epithelial Cells UA 1 TO 5 /HPF Mucus NEGATIVE NEGATIVE BACTERIA, URINE NEGATIVE NEGATIVE CRYSTALS, URINE NONE NONE CASTS, URINE NONE NONE /LPF COMMENT, URINE CULTURE CRITERIA NOT MET, NO CULTURE PERFORMED. HCG QUALITATIVE, URINE Result Value Ref Range HCG, QUALITATIVE, URINE NEGATIVE EKG: Radiographic Imaging No orders to display Procedures: Procedures Moderate Sedation Procedure: No ED Summary/MDM This is a 28-year-old presenting with ongoing epigastric pain she feels very anxious about her condition. She has had outpatient workup including HIDA scan in November with a a 2023. The patient states that she was using NSAIDs for back pain and was vaping and using tobacco products but stopped recently. At this time I did evaluate patient for any sort of acute surgical abdomen she has no McBurney's point tenderness no Yung sign she does have some mild epigastric pain. Labs are all within normal limits. A patient may have a gastritis or reflux. At this time I will place the patient on Levsin along with prescription for Carafate and Vistaril for anxiety she states she has been very anxious about her overall medical condition. She needs to keep her appointment with her specialists and primary care provider. Again there is no evidence acute surgical abdomen labs are within normal limits no indication for any further imaging at this time. I have reviewed the patient's EMR she was had a CT scan abdomen and pelvis in January hepatobiliary study in November pelvic ultrasound in December of 2023. UPDATE: Clinical Impression: 1. Upper abdominal pain Active 2. Gastritis without bleeding, unspecified chronicity, unspecified gastritis type Active 3. Anxiety No follow-ups on file. New Prescriptions HYDROXYZINE PAMOATE 25 MG CAPSULE Take 1 capsule by mouth 3 times daily as needed for Anxiety. HYOSCYAMINE (LEVSIN) 0.125 MG TABLET Take 1 tablet by mouth every 4 hours as needed for Cramping. ONDANSETRON 4 MG TAB DISPERSIBLE TABLET Take 1 tablet by mouth 4 times daily as needed for Nausea / Vomiting. Place on tongue SUCRALFATE 1 G TABLET Take 1 tablet by mouth every 6 hours. Discontinued Medications No medications on file An After Visit Summary was printed and given to the patient with above information. . Documentation of this medical record was completed via electronic dictation system which may contain typographical, mispronunciation, and grammatical errors. PLEASE EXCUSE SUCH ERRORS IF WAS NOT NOTED OR CORRECTED . Aiden Salcedo MD 05/07/24 1304 documented in this encounter [facility] 05-07-2024 Physician Emergency department Note Emergency Department Report [facility] EMERGENCY MEDICINE Service Date:.05/07/24 PCP: Tom Perkins Chief Complaint: Chief Complaint Patient presents with Abdominal Pain RUQ pain on and off for the past week. KIM Moulton is a 28 y.o. female presents to the ED today due to intermittent abdominal for few months but worsening over the last 5 days. The patient states that she is scheduled follow up with outpatient surgery. Patient states that sometimes food does exacerbate her symptoms. Pain is been worsening with nausea no fevers chills no dysuria or frequency. The patient denies any shortness breath or chest pain. The patient denies any maroon or tarry stools. Patient did have a outpatient HIDA scan in 2023 that was unremarkable. The patient denies any maroon or tarry stools presents now for increasing abdominal pain in the right upper quadrant and upper abdomen region. The patient denies any dysuria frequency pain does radiate to her flank or back. The patient was told she may have a history of reflux. Review of Systems: Review of Systems Constitutional: Negative for fever. HENT: Negative for congestion. Eyes: Negative for pain. Respiratory: Negative for shortness of breath. Gastrointestinal: Positive for abdominal pain and nausea. Negative for blood in stool. Endocrine: Negative for polyuria. Genitourinary: Negative for flank pain. Musculoskeletal: Negative for back pain. Skin: Negative for wound. Neurological: Negative for headaches. Psychiatric/Behavioral: Negative for confusion. The patient is nervous/anxious. All other systems reviewed and are negative. Past Medical History: No past medical history on file. Past Surgical History: No past surgical history on file. Allergies: Allergies Allergen Reactions Penicillins Hives Medications: Patient's Medications New Prescriptions HYDROXYZINE PAMOATE 25 MG CAPSULE Take 1 capsule by mouth 3 times daily as needed for Anxiety. HYOSCYAMINE (LEVSIN) 0.125 MG TABLET Take 1 tablet by mouth every 4 hours as needed for Cramping. ONDANSETRON 4 MG TAB DISPERSIBLE TABLET Take 1 tablet by mouth 4 times daily as needed for Nausea / Vomiting. Place on tongue SUCRALFATE 1 G TABLET Take 1 tablet by mouth every 6 hours. Previous Medications No medications on file Modified Medications No medications on file Discontinued Medications No medications on file Family History: History reviewed. No pertinent family history. Social History: Social History Socioeconomic History Marital status: Single Spouse name: Not on file Number of children: Not on file Years of education: Not on file Highest education level: Not on file Occupational History Not on file Tobacco Use Smoking status: Unknown Smokeless tobacco: Never Vaping Use Vaping status: Some Days Substance and Sexual Activity Alcohol use: Not Currently Drug use: Yes Types: Marijuana Sexual activity: Not on file Other Topics Concern Not on file Social History Narrative Not on file Social Determinants of Health Financial Resource Strain: Not on file Food Insecurity: Not on file (12/26/2023) Transportation Needs: Not on file Physical Activity: Sufficiently Active (01/01/2024) Received from [facility] Exercise Vital Sign Days of Exercise per Week: 6 days Minutes of Exercise per Session: 150+ min Stress: Not on file Social Connections: Not on file Intimate Partner Violence: Not on file Housing Stability: Not on file Physical Exam: Physical Exam Constitutional: General: She is not in acute distress. Appearance: She is not toxic-appearing. HENT: Head: Normocephalic and atraumatic. Nose: Nose normal. Mouth/Throat: Pharynx: Oropharynx is clear. Eyes: Extraocular Movements: Extraocular movements intact. Pupils: Pupils are equal, round, and reactive to light. Cardiovascular: Rate and Rhythm: Normal rate and regular rhythm. Heart sounds: Normal heart sounds. Pulmonary: Effort: Pulmonary effort is normal. Breath sounds: Normal breath sounds. Abdominal: Palpations: Abdomen is soft. Tenderness: There is abdominal tenderness in the epigastric area. There is no right CVA tenderness, left CVA tenderness or guarding. Negative signs include Yung's sign and McBurney's sign. Musculoskeletal: General: Normal range of motion. Cervical back: Normal range of motion and neck supple. Skin: General: Skin is warm. Capillary Refill: Capillary refill takes less than 2 seconds. Findings: No erythema. Neurological: General: No focal deficit present. Mental Status: She is alert and oriented to person, place, and time. Psychiatric: Mood and Affect: Mood normal. Vital Signs During ED Visit Patient Vitals for the past 24 hrs: BP Temp Temp src Pulse Resp SpO2 05/07/24 1124 141/71 -- -- -- -- 99 % 05/07/24 1123 -- 99.6 F (37.6 C) Temporal 76 14 99 % Orders/Results: Orders Placed This Encounter CBC, EDIF, PLATELET COMPREHENSIVE METABOLIC PANEL LIPASE GI cocktail: alum/mag hydrox-simethicone(30ml)+lidocai ne 2%(10ml) oral suspension 40 mL hyoscyamine (ANASPAZ) disintegrating tablet 0.125 mg faMOTIdine (PEPCID) tablet 20 mg Ondansetron 4 MG Tab Dispersible tablet Sucralfate 1 g tablet hyoscyamine (Levsin) 0.125 MG tablet hydrOXYzine pamoate 25 MG capsule URINALYSIS, MACRO URINE MICROSCOPIC HCG QUALITATIVE, URINE Results for orders placed or performed during the hospital encounter of 05/07/24 CBC, EDIF, PLATELET Result Value Ref Range WBC (WHITE BLOOD COUNT) 6.9 3.6 - 11.0 10*3/uL RBC 3.68 (L) 4.0 - 5.4 10*6/uL HEMOGLOBIN (HGB) 12.6 12.0 - 16.0 G/DL HEMATOCRIT (HCT) 35.6 (L) 36.0 - 48.0 % MEAN CELL VOLUME 96.8 80.0 - 100.0 FL Mean Cell HGB 34.2 26.0 - 35.0 PG MEAN CELL HGB CONCENTRATION 35.3 27.0 - 37.0 G/DL RBC DISTRIBUTION 12.7 11.5 - 14.5 % PLATELET COUNT 231 130 - 400 10*3/uL MEAN PLATELET VOLUME 7.3 (L) 7.4 - 11.0 FL DIFFERENTIAL TYPE AUTO DIFF % NEUTROPHILS 69.0 37.0 - 75.0 % LYMPHOCYTE 22.8 20.0 - 55.0 % MONOCYTE % 6.6 0.0 - 10.0 % EOSINOPHIL % 0.8 0.0 - 11.0 % BASOPHIL % 0.8 0.0 - 2.0 % Absolute Neutrophil Count 4.8 1.4 - 6.5 10*3/uL LYMPHOCYTES, ABSOLUTE 1.6 1.2 - 3.4 10*3/uL MONOCYTES, ABSOLUTE 0.5 0.0 - 0.7 10*3/uL ABSOLUTE EOSINOPHIL COUNT 0.1 0.0 - 0.7 10*3/uL ABSOLUTE BASOPHIL COUNT 0.1 0.0 - 0.2 10*3/uL COMPREHENSIVE METABOLIC PANEL Result Value Ref Range Glucose 86 70 - 100 MG/DL BUN 8 7 - 20 MG/DL CREATININE SERUM 0.70 0.7 - 1.2 MG/DL SODIUM 140 137 - 145 MMOL/L POTASSIUM 4.3 3.5 - 5.1 MMOL/L CHLORIDE 110 (H) 98 - 107 MMOL/L CALCIUM 8.7 8.4 - 10.2 MG/DL PROTEIN, TOTAL 7.2 6.3 - 8.2 GM/DL Albumin 4.2 3.5 - 5.0 G/dl BILIRUBIN, TOTAL 0.7 0.2 - 1.3 MG/DL AST 24 14 - 36 IU/L ALKALINE PHOSPHATASE 44 38 - 126 IU/L CARBON DIOXIDE (CO2) 23 22 - 30 MMOL/L A/G Ratio 1.4 1.3 - 2.2 RATIO ALT 17 <35 IU/L ESTIMATED GFR, NON AMER 105 ml/min/1.73sq.m ESTIMATED GFR, 127 ml/min/1.73sq.m GFR COMMENT Average GFR for 18-29 years old = 116. LIPASE Result Value Ref Range LIPASE 44 23 - 300 U/L BETA HCG, QUAL, BLOOD Result Value Ref Range BETA HCG (QUAL), SERUM NEGATIVE URINALYSIS, MACRO Result Value Ref Range COLOR, URINE LIGHT YELLOW (A) YELLOW APPEARANCE, URINE CLEAR CLEAR Specific [place], Urine 1.010 1.010 - 1.025 PH URINE 7.5 (H) 5.0 - 7.0 Urine Protein NEGATIVE NEGATIVE mg/dl GLUCOSE, URINE NEGATIVE NEGATIVE mg/dl KETONES, URINE NEGATIVE NEGATIVE mg/dl BILIRUBIN, URINE NEGATIVE NEGATIVE BLOOD, URINE DIPSTICK NEGATIVE NEGATIVE NITRITES, URINE NEGATIVE NEGATIVE UROBILINOGEN, URINE 0.2 0.2 - 1.0 E.U./dL LEUKOCYTE ESTERASE, URINE NEGATIVE NEGATIVE URINE MICROSCOPIC Result Value Ref Range WBC, URINE 1 TO 5 NEGATIVE /HPF RBC, URINE NEGATIVE NEGATIVE /HPF Epithelial Cells UA 1 TO 5 /HPF Mucus NEGATIVE NEGATIVE BACTERIA, URINE NEGATIVE NEGATIVE CRYSTALS, URINE NONE NONE CASTS, URINE NONE NONE /LPF COMMENT, URINE CULTURE CRITERIA NOT MET, NO CULTURE PERFORMED. HCG QUALITATIVE, URINE Result Value Ref Range HCG, QUALITATIVE, URINE NEGATIVE EKG: Radiographic Imaging No orders to display Procedures: Procedures Moderate Sedation Procedure: No ED Summary/MDM This is a 28-year-old presenting with ongoing epigastric pain she feels very anxious about her condition. She has had outpatient workup including HIDA scan in November with a a 2023. The patient states that she was using NSAIDs for back pain and was vaping and using tobacco products but stopped recently. At this time I did evaluate patient for any sort of acute surgical abdomen she has no McBurney's point tenderness no Yung sign she does have some mild epigastric pain. Labs are all within normal limits. A patient may have a gastritis or reflux. At this time I will place the patient on Levsin along with prescription for Carafate and Vistaril for anxiety she states she has been very anxious about her overall medical condition. She needs to keep her appointment with her specialists and primary care provider. Again there is no evidence acute surgical abdomen labs are within normal limits no indication for any further imaging at this time. I have reviewed the patient's EMR she was had a CT scan abdomen and pelvis in January hepatobiliary study in November pelvic ultrasound in December of 2023. UPDATE: Clinical Impression: 1. Upper abdominal pain Active 2. Gastritis without bleeding, unspecified chronicity, unspecified gastritis type Active 3. Anxiety No follow-ups on file. New Prescriptions HYDROXYZINE PAMOATE 25 MG CAPSULE Take 1 capsule by mouth 3 times daily as needed for Anxiety. HYOSCYAMINE (LEVSIN) 0.125 MG TABLET Take 1 tablet by mouth every 4 hours as needed for Cramping. ONDANSETRON 4 MG TAB DISPERSIBLE TABLET Take 1 tablet by mouth 4 times daily as needed for Nausea / Vomiting. Place on tongue SUCRALFATE 1 G TABLET Take 1 tablet by mouth every 6 hours. Discontinued Medications No medications on file An After Visit Summary was printed and given to the patient with above information. . Documentation of this medical record was completed via electronic dictation system which may contain typographical, mispronunciation, and grammatical errors. PLEASE EXCUSE SUCH ERRORS IF WAS NOT NOTED OR CORRECTED . Aiden Salcedo MD 05/07/24 1304 [facility] 05-03-2024 Hospital Discharg e Siri Torres DO - 05/03/2024 11:22 PM EDT Recommend outpatient gallbladder ultrasound while you wait to see the surgeon. You can contact your primary care doctor to get that set up. If you develop a fever or if you are unable to keep anything down or if your pain gets significantly worse return to the emergency department. Make sure to take Tylenol for pain as needed. Stay on a low-fat diet and avoid any oily, fatty or greasy foods. The following attachments cannot be sent through Care Everywhere.Abdominal Pain (Ecuadorean)documented in this encounter [facility] 05-02-2024 [facility] Discharg e instructions Linn Pozo DO - 05/02/2024 2:13 AM EDT Please follow up with your primary care provider, continue to take reflux medications, And zofran to help with nausea, Avoid any spicy or caffeine drinks. documented in this encounter [facility] 04-16-2024 [facility] Discharg e instructions Blaise Delaney MD - 04/16/2024 12:13 AM EDT Please continue taking ibuprofen and Tylenol every 6 hours for pain. You may place lidocaine patch for localized back pain. follow-up outpatient with your primary care doctor on Thursday. Continue oral hydration at home. Please return to the ED for any worsening symptoms or other concerns.. The following attachments cannot be sent through Care Everywhere.Flank Pain (Ecuadorean)documented in this encounter [facility] 01-11-2024 [facility] Discharg e instructions Chencho Pinedo MD - 01/11/2024 2:26 PM EDT Please discuss today's ED visit with your MANAGER NON PROFIT, as findings of pelvic congestion are again seen. Return to the ED for worsening pain, development of persistent vomiting, fever or any other concerns. The following attachments cannot be sent through Care Everywhere.Bacterial Vaginosis (Ecuadorean)Abdominal Pain (Ecuadorean)documented in this encounter [facility] 05-23-2022 Hospital Discharg e instructions Melissa Bridges DO - 05/23/2022 1:25 PM EDT DISCHARGE INSTRUCTIONS for COLONOSCOPY and EGD 1. Do not drive or operate machinery for 24 hours. 2. Do not make important personal or business decisions for 24 hours. 3. Do not drink alcoholic beverages for 24 hours. 4. Do not smoke tobacco products for 24 hours. COLONOSCOPY DISCHARGE INSTRUCTIONS: It's normal to have a feeling of fullness or mild cramping in your abdomen afterwards due to air that is put into your bowel during the procedure. Mild activities such as walking will help you pass the air. You may resume your regular diet. CALL THE DOCTOR IF YOU HAVE: Chest pain or trouble breathing. Persistent nd significant bleeding from your rectum such as soaking through clothing or feeling very dizzy or sweating A fever above 101F or if you have chills If symptoms are to severe call 911 or go to the nearest Emergency Room. documented in this encounter [facility] Work Phone: 05-23-2022 History of Presen t illness Narrative Pt has Propel bottle with her when brought back to preop, pt states she hasn't eaten anything solid since Thu but has taken a few sips of Propel this morning. Last sip about an hour ago. JAYLON Vega states procedure will have to be delayed an hour. Patient states they received their endoscopy; having EGD and colonoscopy, prep instructions from the physician's office. Patient states they understand medications to be taken with sip of water only the a.m. of procedure. Results of bowel prep reviewed with patient, appearance should be clear, yellow, liquid prior to arrival at facility. Patient verbalizes understanding. Call transferred to Dr. Bridges's office for further questions the patient has regarding the prescriptions called into the pharmacy for the prep. Attempted PAT phone call; no answer; no voicemail. Patient instructed per phone interview on the pre-operative, intra-operative, and post-operative process, as well as NPO status. Reminded patient not to vape after midnight. Pre-operative instruction sheet reviewed with the patient. Verbalizes understanding. documented in this encounter [facility] Phone: 04-03-2022 Hospital Discharg e instructions Oneyda Dickens MD - 04/03/2022 3:50 AM EDT Continue current medications as prescribed. Start Nasacort and Zyrtec soon as possible and use daily. Follow-up with ENT as soon as possible. Seek medical attention for worsening pain fevers chills or any other acute concerns The following attachments cannot be sent through Care Everywhere.Earache: Adult (Ecuadorean)Otitis Media (Ecuadorean)documented in this encounter [facility] Phone: Evaluation note Diagnosis Musculoskeletal back pain- Primary documented in this encounter [facility] Phone: evaluation note* Diagnosis Screening for malignant neoplasm of cervix Screening for malignant neoplasm of the cervix Epigastric pain Abdominal pain, epigastric documented in this encounter [facility] Phone: evaluation note* Diagnosis Otalgia of right ear- Primary Otalgia, unspecified Subacute otitis media, unspecified otitis media type Epigastric pain Abdominal pain, epigastric documented in this encounter [facility] Phone: evaluation note* Diagnosis ASCUS with positive high risk HPV cervical Epigastric pain Abdominal pain, epigastric [facility] evalmehley note* Diagnosis Epigastric pain Abdominal pain, epigastric documented in this [facility]: evalpjidsh note* Diagnosis Left lower quadrant abdominal pain- Primary BV (bacterial vaginosis) Vaginitis and vulvovaginitis, unspecified Pelvic pain documented [facility] this [facility]* Diagnosis Generalized abdominal pain Abdominal pain, generalized Nasal and sinus discharge Other diseases of nasal cavity and sinuses Pelvic pain documented [facility] this [facility]* Diagnosis Temperature intolerance Other general symptoms Pelvic pain [facility]* Diagnosis Other acute back pain Hematuria, unspecified type Pelvic pain documented in this [facility] note* Diagnosis Flank pain- Primary Abdominal pain, unspecified site Pelvic pain documented in this [facility] note* Diagnosis Muscle pain- Primary Mylagia and myositis, unspecified Pelvic pain documented in this [facility] note* Diagnosis Chest pain, unspecified type- Primary Pelvic pain documented in this [facility] note* Diagnosis Pain of upper abdomen- Primary Abdominal pain, other specified site Pelvic pain documented in this encounter [facility] note* Diagnosis Upper abdominal pain- Primary Abdominal pain, other specified site Gastritis without bleeding, unspecified chronicity, unspecified gastritis type Anxiety Anxiety state, unspecified [facility] [place] [facility] Diagnosis Biliary dyskinesia- Primary Other specified disorder of gallbladder Gastroesophageal reflux disease without esophagitis Esophageal reflux Right upper quadrant abdominal pain Costochondritis Tietze's disease documented [facility] this [facility] [place] [facility]* Diagnosis Fall, initial encounter- Primary Contusion of left hand, initial encounter Pelvic pain [facility]* Instructions* Siri Barrera, - 01/14/2022 Please follow-up with Dr. Bridges tomorrow at your scheduled appointment. Take Tylenol or ibuprofen as needed for the back pain. * Attachments The following attachments cannot be sent through Care Everywhere. * Back Pain (Ecuadorean) [facility]: Hospital Discharge instructions* Attachments The following attachments cannot be sent through Care Everywhere. * Musculoskeletal Pain (Ecuadorean) [facility] Attachments The following attachments cannot be sent through Care Everywhere. * Gastritis (Ecuadorean) * Abdominal Pain (Ecuadorean) * Anxiety Disorders: General Info (Ecuadorean) [facility] System[facility]ructionsNot on filedocumented in this [facility] SystemInstructionsNot on filedocumented in this encounterL[facility] CenterReason for referral (narrative)* Consultation (Routine) - Pending Review Specialty Diagnoses / Procedures Referred By Dulce kwok Referred To Contact Gastroenterology Diagnoses Biliary dyskinesia Gastroesophageal reflux disease without esophagitis Right upper quadrant abdominal pain Tete Hoang MD [address], [address] [address] [facility] [address] [address] Referral ID Status Reason Start Date Expiration Date Visits Requested Visits Authorized [id number] Pending Review Specialty Services Required 4 05/17/2025 1 1 [facility] for visit Narrative* Consultation (Routine) - Pending Review Specialty Diagnoses / Procedures Referred By Contalexis t Referred To Contact General Surgery Diagnoses RUQ pain Dyskinesia of gallbladder Procedures AMB EXTERNAL REFERRAL TO GENERAL SURGERY Tom Perkins MD [address] [address] Tete Hoang MD [address], [facility] [address] [place] [address] Referral ID Status Reason Start Date Expiration Date V isits Requested Visits Authorized [id number] Pending Review 05/03/2024 10/30/2024 1 1 [employer] [facility] Instructions * Patient Instructions - JoseMarialuisa DO Hern[place] - 03/10/2017 3:17 PM EDT Abscessed Tooth: Care Instructions Your Care Instructions An abscessed tooth is a tooth that has a pocket of pus in the tissues around it. Pus forms when thebody tries to fight an infection caused by bacteria. If the pus cannot drain, it forms an abscess. An abscessed tooth can cause red, swollen gums and throbbing pain, especially when you chew. You mayhave a bad taste in your mouth and a fever, and your jaw may swell. Damage to the tooth, untreated tooth decay, or gum disease can cause an abscessed tooth. An abscessed tooth needs to be treated by a dental professional right away. If it is not treated, the infection could spread to other parts of your body. Your dentist will give you antibiotics to stop the infection. He or she may make a hole in the tooth or cut open (ankush) the abscess inside your mouth so that the infection can drain, which should relieve your pain. You may need to have a root canal treatment, which tries to save your tooth by taking out the infected pulp and replacing it witha healing medicine and/or a filling. If these treatments do not work, your tooth may have to be removed. Follow-up care is a mcfarland part of your treatment and safety. Be sure to make and go to all appointments, and call your doctor if you are having problems. It's also a good idea to know your test resultsand keep a list of the medicines you take. How can you care for yourself at home? Reduce pain and swelling in your face and jaw by putting ice or a cold pack on the outside of your cheek for 10 to 20 minutes at a time. Put a thin cloth between the ice and your skin. Take pain medicines exactly as directed. If the doctor gave you a prescription medicine for pain, take it as prescribed. If you are not taking a prescription pain medicine, ask your doctor if you can take an uflw-rqh-ovckvti medicine. Take your antibiotics as directed. Do not stop taking them just because you feel better. You need to take the full course of antibiotics. To prevent tooth abscess [place] and floss every day, and have regular dental checkups. Eat a healthy diet, and avoid sugary foods and drinks. Do not smoke, use e-cigarettes with nicotine, or use spit tobacco. Tobacco and nicotine slow your ability to heal. Tobacco also increases your risk for gum disease and cancer of the mouth and throat.If you need help quitting, talk to your doctor about stop-smoking programs and medicines. These canincrease your chances of quitting for good. When should you call for help? Call 911 anytime you think you may need emergency care. For example, call if: You have trouble breathing. Call your doctor now or seek immediate medical care if: You are dizzy or lightheaded, or you feel like you may faint. You have a new or higher fever. You have swelling, redness, or pain that spreads or gets worse. You have pus coming from the tooth area. You have an earache or pain behind your ear. You have a fever with a stiff neck or a severe headache. You are sensitive to light or feel very sleepy or confused. Watch closely for changes in your health, and be sure to contact your doctor if: You do not get better as expected. Where can you learn more? Log into your personal health record on https://Lumicellt[employer] and enter L466 in the Education box to learn more about Abscessed Tooth: Care Instructions. Current as of: April 21, 2016 Content Version: 11.2 4556-5633 [employer]. Care instructions adapted under license by your healthcare professional. If you have questions about a medical condition or this instruction, always ask your healthcare professional. [employer] disclaims any warranty or liability for your use of this information. in this encounter* Patient Instructions - Marialuisa Huerta DO - 04/13/2017 3:37 PM EDT Stopping Smoking: Care Instructions Your Care Instructions Cigarette smokers crave the nicotine in cigarettes. Giving it up is much harder than simply changing a habit. Your body has to stop craving the nicotine. It is hard to quit, but you can do it. There are many tools that people use to quit smoking. You may find that combining tools works best for you. There are several steps to quitting. First you get ready to quit. Then you get support to help you.After that, you learn new skills and behaviors to become a nonsmoker. For many people, a necessary step is getting and using medicine. Your doctor will help you set up the plan that best meets your needs. You may want to attend a smoking cessation program to help you quit smoking. When you choose a program, look for one that has proven success. Ask your doctor for ideas. You will greatly increase your chances of success if you take medicine as well as get counseling or join a cessation program. Some of the changes you feel when you first quit tobacco are uncomfortable. Your body will miss thenicotine at first, and you may feel short-tempered and grumpy. You may have trouble sleeping or concentrating. Medicine can help you deal with these symptoms. You may struggle with changing your smoking habits and rituals. The last step is the tricky one: Be prepared for the smoking urge to continue for a time. This is a lot to deal with, but keep at it. You will feel better. Follow-up care is a mcfarland part of your treatment and safety. Be sure to make and go to all appointments, and call your doctor if you are having problems. It s also a good idea to know your test resultsand keep a list of the medicines you take. How can you care for yourself at home? Ask your family, friends, and coworkers for support. You have a better chance of quitting if you have help and support. Join a support group, such as Nicotine Anonymous, for people who are trying to quit smoking. Consider signing up for a smoking cessation program, such as the [place] [employer]'s [place] from Smoking program. Set a quit date. Pick your date carefully so that it is not right in the middle of a big deadline or stressful time. Once you quit, do not even take a puff. Get rid of all ashtrays and lighters afteryour last cigarette. Clean your house and your clothes so that they do not smell of smoke. Learn how to be a nonsmoker. Think about ways you can avoid those things that make you reach for a cigarette. Avoid situations that put you at greatest risk for smoking. For some people, it is hard to have a drink with friends without smoking. For others, they might skip a coffee break with coworkers who smoke. Change your daily routine. Take a different route to work or eat a meal in a different place. Cut down on stress. Calm yourself or release tension by doing an activity you enjoy, such as reading a book, taking a hot bath, or gardening. Talk to your doctor or pharmacist about nicotine replacement therapy, which replaces the nicotine in your body. You still get nicotine but you do not use tobacco. Nicotine replacement products help you slowly reduce the amount of nicotine you need. These products come in several forms, many of themavailable [id number]-[id number]: Nicotine patches Nicotine gum and lozenges Nicotine inhaler Ask your doctor about bupropion (Wellbutrin) or varenicline (Chantix), which are prescription medicines. They do not contain nicotine. They help you by reducing withdrawal symptoms, such as stress and anxiety. Some people find hypnosis, acupuncture, and massage helpful for ending the smoking habit. Eat a healthy diet and get regular exercise. Having healthy habits will help your body move past its craving for nicotine. Be prepared to keep trying. Most people are not successful the first few times they try to quit. Donot get mad at yourself if you smoke again. Make a list of things you learned and think about when you want to try again, such as next week, next month, or next year. Where can you learn more? Log into your personal health record on https://HouseTabhart.[employer] and enter Y522 in the Education box to learn more about Stopping Smoking: Care Instructions. Current as of: December 27, 2015 Content Version: 11.2 6302-6175 [employer]. Care instructions adapted under license by your healthcare professional. If you have questions about a medical condition or this instruction, always ask your healthcare professional. [employer] disclaims any warranty or liability for your use of this information. in this encounter Assessments Diagnosis Dental abscess - Primary Periapical abscess without sinus Attention deficit hyperactiv ity disorder (ADHD), combined type Infected dental carries Other dental caries Acute maxillary sinusitis, r ecurrence not specified Diagnosis Maxillary sinusitis, unspeci fied chronicity - Primary Attention deficit hyperactiv ity disorder (ADHD), combined type Tobacco abuse Tobacco use disorder Diagnosis RUQ pain Abdominal pain, right upper quadrant Nausea Nausea alone Bloating Flatulence, eructation, and gas pain History of Present Illness * Marialuisa Huerta DO - 04/13/2017 3:33 PM EDT Subjective: States nasal congestion, itchy eyes and cough for the past week. States nausea and mucus emesis. She is also in need of Adderall refill at this time for ADHD. She would also like quit smoking. She currently is smoking one pack per day. Patient ID: Sari Moulton is a 21 y.o. female. HPI Review of Systems Constitutional: Negative for chills, fatigue and fever. HENT: Positive for congestion, postnasal drip and sinus pressure. Negative for ear pain, sore throat and trouble swallowing. Eyes: Positive for itching. Respiratory: Positive for cough. Negative for shortness of breath. Cardiovascular: Negative for chest pain. Gastrointestinal: Positive for nausea and vomiting. Negative for abdominal pain. Musculoskeletal: Negative for arthralgias and myalgias. Skin: Negative for rash. Neurological: Negative for headaches. Hematological: Negative for adenopathy. Psychiatric/Behavioral: ADHD Objective: Physical Exam Constitutional: She is oriented to person, place, and time. She appears well- developed and well-nourished. No distress. HENT: Head: Normocephalic and atraumatic. Right Ear: External ear normal. Left Ear: External ear normal. Nose: Right sinus exhibits maxillary sinus tenderness. Left sinus exhibits maxillary sinus tenderness. Mouth/Throat: Oropharynx is clear and moist. Eyes: Pupils are equal, round, and reactive to light. bilat sclera - inflammation Neck: Normal range of motion. Neck supple. Cardiovascular: Normal rate, regular rhythm and normal heart sounds. Pulmonary/Chest: Effort normal and breath sounds normal. She has no wheezes. She has no rales. Abdominal: Soft. Bowel sounds are normal. There is no tenderness. There is no rebound and no guarding. Musculoskeletal: Normal range of motion. She exhibits no edema or tenderness. Lymphadenopathy: She has no cervical adenopathy. Neurological: She is alert and oriented to person, place, and time. She has normal reflexes. She exhibits normal muscle tone. Skin: Skin is warm and dry. No rash noted. She is not diaphoretic. Psychiatric: Her behavior is normal. Assessment/Plan: Diagnoses and all orders for this visit: Maxillary sinusitis, unspecified chronicity - doxycycline hyclate (VIBRA-TABS) 100 MG tablet; Take 1 (one) tablet (100 mg total) by mouth 2 (two) times a day for 10 days. Attention deficit hyperactivity disorder (ADHD), combined type - dextroamphetamine-amphetamine (ADDERALL XR) 15 MG 24 hr capsule; Take 1 (one) capsule (15 mg total) by mouth every morning. Tobacco abuse - nicotine 21-14-7 mg/24 hr PTDS; Place 1 application on the skin daily. Other orders - fluconazole (DIFLUCAN) 100 MG tablet; Take 1 (one) tablet (100 mg total) by mouth daily May repeat in 72 hours if symptoms persist. for 1 day. Follow up prn. 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 Expl anation Advance Directives and Living Will Power of Fine Patcher Latest Code Status on File Code Status Date Activated Date Inactivated Comments Full Code 01/11/2019 4:31 PM 01/12/2019 1:11 PM Full Code 01/11/2019 5:50 AM 01/11/2019 4:31 PM Full Code 11/10/2017 12:37 AM 11/10/2017 5:08 PM Full Code 11/09/2017 10:48 PM 11/10/2017 12:36 AM Documents on File Type Date Recorded 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 Glass 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 Expl anation ACP-Advance Directive ACP-Power of Fine Patcher Latest Code Status on File Code Status Date Activated Date Inactivated Comments Full Code 01/11/2019 4:31 PM 01/12/2019 1:11 PM Full Code 01/11/2019 5:50 AM 01/11/2019 4:31 PM Full Code 11/10/2017 12:37 AM 11/10/2017 5:08 PM Full Code 11/09/2017 10:48 PM 11/10/2017 12:36 AM Latest Code Status on File Code Status Date Activated Date Inactivated Comments Full Code 06/30/2022 10:52 AM 06/30/2022 3:45 PM Code Status History Code Status Date Activated Date Inactivated Comments Full Code 01/11/2019 4:31 PM 01/12/2019 1:11 PM Full Code 01/11/2019 5:50 AM 01/11/2019 4:31 PM Full Code 11/10/2017 12:37 AM 11/10/2017 5:08 PM Full Code 11/09/2017 10:48 PM 11/10/2017 12:36 AM Date Activated Date Inactivated Comments 06/30/2022 10:52 AM 06/30/2022 3:45 PM Date Activated Date Inactivated Comments 01/11/2019 4:31 PM 01/12/2019 1:11 PM Date Activated Date Inactivated Comments 01/11/2019 5:50 AM 01/11/2019 4:31 PM Date Activated Date Inactivated Comments 11/10/2017 12:37 AM 11/10/2017 5:08 PM Date Activated Date Inactivated Comments 11/09/2017 10:48 PM 11/10/2017 12:36 AM Reason for Referral Status Reason Specialty Diagnoses / Procedures Referred By Contact Referred To Contact Not Required - [facility] Diagnoses RUQ pain Nausea Bloating Procedures US Gallbladder Ruq HC [place] [address] [place] [address] [facility] [address] [place] [address] Additional Source Comments Reason for Visit (unrecogniz ed section and content) Reason Comments Cough moist, phlegm is yel low per PT x 1 week Medication Refill PT states that she n eeds her adderall refilled. Nasal Congestion x 1 week Eye Burn B/l x 1 week Nausea x 1 week Status Reason Specialty Diagnoses / Procedures Referred By Contact Referred To Contact Not Required - [facility] Diagnoses RUQ pain Nausea Bloating Procedures US Gallbladder Ruq HC [place] [address] [place] [address] [facility] Ultrasound [address] [id number] Reason Comments Abdominal Pain states she has appoi ntment with surgeon (Dr. Bridges) tomorrow about gallbladder but pain worse today & was told to come to ER for evaluation Nausea all the time and feels better not to eat Reason Comments Otalgia Right, on antibiotic , hurts worse at night Specialty Diagnoses / Procedures Referred By Contac t Referred To Contact Diagnoses Epigastric pain EPIGASTRIC PAIN Procedures AR EGD TRANSORAL BIOPSY SINGLE/MULTIPLE AR ESOPHAGOGASTRODUODENOSCOPY TRANSORAL DIAGNOSTIC AR EGD BALLOON DILATION ESOPHAGUS <30 MM DIAM EGD ESOPHAGOGASTRODUODENOSCOPY - WITH BIOPSY Melissa Bridges DO [address] [facility] [address] [place] [address] [facility] [address] [place] [address] Referral ID Status Reason Start Date Expiration Date Visits Re quested Visits Authorized [id number] 1 1 Reason Comments Abdominal Pain Patient complains of ongoing lower abdominal pain lower back pain. Patient states she has pelvic congestion. Patient states increased pain and shitting . Reason Comments Flank Pain Pt c/o right sided f lank, side, and abd pain. Pt states recently treated for pulled muscle on same side, but states this pain is different. Abdominal Pain Reason Comments Arm Pain Right arm, onset Jess rsday after carrying son. Pt states vein is bumpy , more noticeable after BP reading earlier. Was seen in ER earlier for same complaint, LWBS. Pt states has pelvic congestion and concerned for correlation Reason Comments Nausea Upset stomach for th e past 4 days, with extreme nausea starting today. Chest Pain Ongoing for 4 days, dull pain, radiating into back since yesterday Reason Comments Abdominal Pain Right upper abdomina l pain that radiates to rib cage with nausea and constipation that has been ongoing for the last few weeks. Reason Comments Abdominal Pain RUQ pain on and off for the past week. Reason Comments Hand Injury Trip and fall tonigh t, complains of left hand pain. Complains of left leg numbness that has been ongoing for a week. States the numb leg is what caused her to fall. Was seen earlier this week for the leg numbness INFORMATION SOURCE (unrecogn ized section and content) DATE CREATED AUTHOR 04/19/2019 [facility] DATE CREATED AUTHOR AUTHOR'S ORGANIZ ATION 05/08/2019 [facility] DATE CREATED AUTHOR AUTHOR'S ORGANIZ ATION 11/14/2023 [facility] DATE CREATED AUTHOR AUTHOR'S ORGANIZ ATION 05/10/2024 [facility] DATE CREATED AUTHOR AUTHOR'S ORGANIZ ATION 05/18/2024 [facility] DATE CREATED AUTHOR AUTHOR'S ORGANIZ ATION 05/19/2024 [facility] DATE CREATED AUTHOR AUTHOR'S ORGANIZ ATION 05/29/2024 Radha ahuja Scheduled Active and Recently Administ ered Medications (unrecognized section and content) Medication Order 01/12/2022 01/13/2022 01/14/2022 ketorolac (TORADOL) injection 30 mg (COMPLETED) Ketorolac is contraindicated in patients with advanced renal impairment and in patients at risk of renal failure due to volume depletion. For 65 years of age and older OR weight less than 50 kg, use 15 mg IV every 6 hours; MAX dose: 60 mg/day. Dose greater than 30 mg must be administered via intramuscular route. Do not administer for more than 5 days., 30 mg, IntraVENous, ONCE, 1 dose, On Thu01/14/22 at 1015, Do not administer for more than 5 days. 1030 (Given - Provid er: Ophelia Ghosh RN) ondansetron (ZOFRAN) injection 4 mg (COMPLETED) 4 mg, IntraVENous, ONCE, 1 dose, On Thu01/14/22 at 1015 1030 (Given - Provid er: Ophelia Ghosh RN) Scheduled Medication Order 04/01/2022 04/02/2022 04/03/2022 hydrocodone-acetaminophen (NORCO) tablet 5-325 mg (STARTER PACK) This order is for a take home starter pack of medication. Please document Not Given with a reason of other on the MAR along with a comment of sent home with patient. 0351 (Not Given - Pr ovider: Dona Joyce RN - Reason: Other - Comment: Sent with patient) predniSONE (DELTASONE) tablet 40 mg (COMPLETED) 40 mg, Oral, ONCE, 1 dose, On Jess 04/03/22 at 0345 0350 (Given - Provid er: Dona Joyce RN) Scheduled Medication Order 05/21/2022 05/22/2022 05/23/2022 sodium chloride flush 0.9 % injection 5-40 mL 5-40 mL, IntraVENous, EVERY 12 HOURS SCHEDULED (2 times per day), First dose on Thu05/23/22 at 2100, Until Discontinued, For Line Patency: Peripheral IV = 5 mL; Midline or Central Line = 10 mL/lumen. If following IV push medication, administer flush at same rate as the IV push. Flush volume is determined by type of infusion therapy being given. For non-viscous solutions use: Peripheral IV = 5 mL Midline or Central Line = 10 mL/lumen For viscous solutions (i.e. blood components, parenteral nutrition, contrast media, or after obtaining blood sample) use: Peripheral IV = 10 mL Midline or Central Line = 20 mL/lumen, PACU only 2100 (Due) Continuous Medication Order 05/21/2022 05/22/2022 05/23/2022 lactated ringers infusion IntraVENous, at 100 mL/hr, CONTINUOUS, Starting on Thu05/23/22 at 1145, Pre-op (day of surgery) 1217 (New Bag - Prov ider: Sheree Goff RN)1400 (Stopped - Provider: Iesha Gamble RN) PRN Medication Order 05/21/2022 05/22/2022 05/23/2022 0.9 % sodium chloride infusion IntraVENous, at 5-250 mL/hr, PRN, if patient receiving piggyback infusions and maintenance fluids are not ordered OR KVO fluids to protect IV site / prevent frequent line interruptions/ long duration, Starting on Thu05/23/22 at 1334, For piggyback infusion, administer at same rate as piggyback for a total of 25 mL. Enter 25 mL into dose field and piggyback rate into rate field of order. If piggyback is infusing at a rate less than 100 mL/hr, enter 25 mL into dose field and 100 mL/hr into rate field of order. For KVO fluids, enter rate of 20 mL/hr or less into rate field of order., PACU only sodium chloride flush 0.9 % injection 5-40 mL 5-40 mL, IntraVENous, PRN, Starting on Thu05/23/22 at 1334, Until Discontinued, Line Care, After every IV line use, For Line Patency: Peripheral IV = 5 mL; Midline or Central Line = 10 mL/lumen. If following IV push medication, administer flush at same rate as the IV push. Flush volume is determined by type of infusion therapy being given. For non-viscous solutions use: Peripheral IV = 5 mL Midline or Central Line = 10 mL/lumen For viscous solutions (i.e. blood components, parenteral nutrition, contrast media, or after obtaining blood sample) use: Peripheral IV = 10 mL Midline or Central Line = 20 mL/lumen, PACU only Scheduled Medication Order 01/09/2024 01/10/2024 01/11/2024 dicyclomine (BENTYL) injection 20 mg (COMPLETED) 20 mg, IntraMUSCular, ONCE, 1 dose, On Thu01/11/24 at 1415 1417 (Given - Provid er: Dona Joyce RN) ondansetron (ZOFRAN) injection 4 mg (COMPLETED) 4 mg, IntraVENous, ONCE, 1 dose, On Thu01/11/24 at 1245 1243 (Given - Provid er: Dona Joyce RN) sodium chloride 0.9 % bolus 1,000 mL (COMPLETED) 1,000 mL, IntraVENous, at 1,935.5 mL/hr, Administer over 31 Minutes, ONCE, On Thu01/11/24 at 1245, For 1 dose 1242 (New Bag - Prov ider: Dona Joyce RN)1313 (Stopped - Provider: Dona Joyce RN) PRN Medication Order 01/09/2024 01/10/2024 01/11/2024 iopamidol (ISOVUE-370) 76 % injection 75 mL (COMPLETED) 75 mL, IntraVENous, IMG ONCE PRN, 1 dose, Starting on Thu01/11/24 at 1308, Until Thu01/11/24 at 1309, Other 1309 (Given - Provid er: Christa Handy) Scheduled Medication Order 04/14/2024 04/15/2024 04/16/2024 sodium chloride 0.9 % bolus 1,000 mL (COMPLETED) 1,000 mL (18.4 mL/kg), IntraVENous, at 2,000 mL/hr, Administer over 30 Minutes, ONCE, On Thu04/15/24 at 2330, For 1 dose 2343 (New Bag - Provider: Vidal Martínez RN) 0040 (Stopped - Provider: Vidal Martínez RN) Scheduled Medication Order 04/30/2024 05/01/2024 05/02/2024 ondansetron (ZOFRAN) injection 4 mg (COMPLETED) 4 mg, IntraVENous, ONCE, 1 dose, On Thu05/02/24 at 0015 0028 (Given - Provid er: Ileana Kraft RN) pantoprazole (PROTONIX) tablet 40 mg (COMPLETED) 40 mg, Oral, ONCE, 1 dose, On 05/02/24 at 0015, Do not crush or break. 0028 (Given - Provid er: Ileana Kraft RN) Scheduled Medication Order 05/05/2024 05/06/2024 05/07/2024 faMOTIdine (PEPCID) tablet 20 mg (COMPLETED) 20 mg, Oral, ONCE, 1 dose, On 05/07/24 at 1215 1219 (Given - Provid er: Crissy Hidalgo RN) GI cocktail: alum/mag hydrox-simethicone(30ml)+lidocaine 2%(10ml) oral suspension 40 mL (COMPLETED) 40 mL, Oral, ONCE, 1 dose, On 05/07/24 at 1215 1220 (Given - Provid er: Crissy Hidalgo RN) hyoscyamine (ANASPAZ) disintegrating tablet 0.125 mg (COMPLETED) 0.125 mg, Oral, ONCE, 1 dose, On 05/07/24 at 1215 1219 (Given - Provid er: Crissy Hidalgo RN) Care Teams (unrecognized sec tion and content) Human Resources Leader Relationship Specialty Start Date End Date Marialuisa Huerta, DO [address] [place] [address] PCP - General 10/27/15 Human Resources Leader Relationship Specialty Start Date End Date Marialuisa Huerta, DO [address] [place] [address] PCP - General Family Medicine 04/03/22 Human Resources Leader Relationship Specialty Start Date End Date Marialuisa Huerta DO [address] [place] [address] PCP - General Family Medicine 04/03/22 Human Resources Leader Relationship Specialty Start Date End Date Marialuisa Huerta, DO [address] [place] [address] PCP - General Family Medicine 04/03/22 Human Resources Leader Relationship Specialty Start Date End Date Tom Perkins MD [address] [place] [address] [address] [place] [address] PCP - General Family Medicine 01/01/24 Human Resources Leader Relationship Specialty Start Date End Date Tom Perkins MD [address] [place] [address] [address] [place] [address] PCP - General Family Medicine 01/01/24 Human Resources Leader Relationship Specialty Start Date End Date Tom Perkins MD [address] [place] [address] [address] [place] [address] PCP - General Family Medicine 01/01/24 Human Resources Leader Relationship Specialty Start Date End Date Tom Perkins MD [address] [place] [address] [address] [place] [address] PCP - General Family Medicine 01/01/24 Human Resources Leader Relationship Specialty Start Date End Date Tom Perkins MD [address] [place] [address] [address] [place] [address] PCP - General Family Medicine 01/01/24 Human Resources Leader Relationship Specialty Start Date End Date Tom Perkins MD [address] [place] [address] [address] [place] [address] PCP - General Family Medicine 01/01/24 Human Resources Leader Relationship Specialty Start Date End Date Tom Perkins MD [address] [place] [address] [address] [place] [address] PCP - General Family Medicine 01/01/24 Human Resources Leader Relationship Specialty Start Date End Date Tom Perkins MD [address] [place] [address] [address] [place] [address] PCP - General Family Medicine 01/01/24 Human Resources Leader Relationship Specialty Start Date End Date Tom Perkins MD [address] [place] [address] [address] [place] [address] PCP - General Family Medicine 05/07/24 Human Resources Leader Relationship Specialty Start Date End Date Tom Perkins MD [address] [place] [address] [address] [place], [place] [id number] PCP - General Family Medicine 01/01/24 Ordered Prescriptions (unrec ognized section and content) Prescription Sig Dispensed Refills Start Date End Da te cetirizine (ZYRTEC) 10 MG tablet Take 1 tablet by mouth daily 30 tablet 0 04/03/2022 05/03/2022 triamcinolone (NASACORT ALLERGY 24HR) 55 MCG/ACT nasal inhaler 2 sprays by Each Nostril route daily 1 each 3 04/03/2022 Prescription Sig Dispensed Refills Start Date End Da te ondansetron (ZOFRAN-ODT) 4 MG disintegrating tablet Take 1 tablet by mouth 3 times daily as needed for Nausea or Vomiting 21 tablet 0 01/11/2024 metroNIDAZOLE (FLAGYL) 500 MG tablet Take 1 tablet by mouth 2 times daily for 7 days 14 tablet 0 01/11/2024 01/18/2024 Prescription Sig Dispensed Refills Start Date End Da te lidocaine (LIDODERM) 5 % Place 1 patch onto the skin daily for 10 days 12 hours on, 12 hours off. 10 patch 04/16/2024 04/26/2024 Prescription Sig Dispensed Refills Start Date End Da te ondansetron (ZOFRAN-ODT) 4 MG disintegrating tablet Take 1 tablet by mouth 3 times daily as needed for Nausea or Vomiting 21 tablet 05/02/2024 FOR RECORDS PERTAINING TO PATIENTS WHO ARE OR HAVE BEEN ENROLLED IN A CHEMICAL DEPENDENCY/SUBSTANCEABUSE PROGRAM, SOME INFORMATION MAY BE OMITTED. This clinical summary was aggregated from multiple sources. Caution should be exercised in using it in the provision of clinical care. This summary normalizes information from multiple sources, and as a consequence, information in this document may materially change the coding, format and clinical context of patient data. In addition, data may be omitted in some cases. CLINICAL DECISIONS SHOULD BE BASED ON THE PRIMARY CLINICAL RECORDS. [facility]. provides no warranty or guarantee of the accuracy or completeness of information in this document.
[2024-05-30 21:44] VITALS: BP 129/72; PULSE 69; TEMP 36.7; O2SAT 100; BMI 19.5
--- NOTE | 2024-05-30 21:51 | ED_ITS ---
HPI - Extremity Problem General Chief complaint: Extremity Problem, Nontraumatic Stated complaint: LE PAIN Time Seen by Provider: 05/30/24 21:47 Source: patient Mode of arrival: walk-in Limitations: no limitations History of Present Illness HPI Narrative: This 28-year-old female presents for evaluation of 1 week of left thigh pain. She has pain from her knee to her groin area. 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 She does not smoke but recently quit smoking. She is not on any control. She states she feels like there are air bubbles in her leg. 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 She denies any chest pain shortness of breath. She has no dizziness tachycardia or syncope. Related Data Home Medications ?Medication ?Instructions ?Recorded ?Confirmed hydroxyzine HCl 25 mg tablet 25 mg PO BID 05/11/24 05/30/24 omeprazole 10 mg capsule,delayed 10 mg PO BID 05/11/24 05/11/24 release sucralfate .Route 05/11/24 Previous Rx's ?Medication ?Instructions ?Recorded nicotine See Rx Instructions transdermal 05/11/24 21mg/24hr-14mg/24hr-7mg/24hr daily .COMPLEX #56 patches transderm patches,sequentl Allergies Allergy/AdvReac Type Severity Reaction Status Date / Time No Known Drug Allergies Allergy Verified 05/30/24 21:49 Review of Systems ROS Status of ROS 10 or more systems reviewed and unremark able except as noted in history and below PFSH PFSH Social History Little interest or pleasure in doing things: not at all Feeling down, depressed, or hopeless: not at all Exam Narrative Exam Narrative: Vital signs and Nursing Notes reviewed: Patient is afebrile with a normal pulse, normal blood pressure, she is not hypoxic with pulse ox of 100% on room air General: Awake, alert, oriented, no acute distress, lying comfortably on the stretcher HEENT: Normocephalic atraumatic, mucous membranes are moist and pink, eyes are clear, normal conjunctiva, vision is grossly intact Chest: Lungs are clear to auscultation with good air entry, there is no wheezing rhonchi or rales appreciated no accessory muscle use, patient is speaking in complete sentences-no chest wall tenderness to palpation CVS: Regular rate and rhythm S1-S2, no murmurs rubs or gallops, pulses are brisk and equal bilaterally ABD: Soft, nondistended, nontender, no rebound guarding or rigidity, bowel sounds are normal, no pulsatile masses appreciated Extremities: Lower extremities were compared [id number], there is no size di screpancy in her legs. There is no redness, swelling, palpable cords, knee effusion or any other notable abnormality in the lower extremities bilaterally. Femoral pulses are brisk and equal. Dorsalis pedis pulses are also brisk and equal. Skin: Normal in appearance without rash,pallor, petechiae or purpura Neuro: No focal deficits Constitutional Vital Signs, click to edit/add: Last Vital Signs Temp 98.0 F 05/30/24 21:44 Pulse 69 05/30/24 21:44 Resp 20 05/30/24 21:44 BP 129/72 05/30/24 21:44 Pulse Ox 100 05/30/24 21:44 O2 Del Method Room Air 05/30/24 21:44 Course Vital Signs Vital signs: Vital Signs Temperature 98.0 F 05/30/24 21:44 Pulse Rate 69 05/30/24 21:44 Respiratory Rate 20 05/30/24 21:44 Blood Pressure 129/72 05/30/24 21:44 Pulse Oximetry 100 05/30/24 21:44 Oxygen Delivery Method Room Air 05/30/24 21:44 Temperature 98.0 F 05/30/24 21:44 Pulse Rate 69 05/30/24 21:44 Respiratory Rate 20 05/30/24 21:44 Blood Pressure 129/72 05/30/24 21:44 Pulse Oximetry 100 05/30/24 21:44 Oxygen Delivery Method Room Air 05/30/24 21:44 MDM - Extremity (Nontraumatic) MDM Narrative Medical decision making narrative: This 28-year-old female presents for evaluation of left leg pain for 1 week. She states that she has pelvic congestion syndrome and is scheduled to have a hysterectomy. She states she has been told that this can lead her to have blood clots in her leg. She has a history of tobacco use but recently quit smoking. She has a history of substance abuse but has been clean for 7 years. She states she cannot take ibuprofen because she has an ulcer. She was medicated with a dose of Robaxin. Ultrasound of the lower extremity was ordered and is negative for DVT. On reevaluation she stated that the Robaxin took her pain away and she was able to rest. She will be discharged home with a prescription for Robaxin. I encouraged her to drink plenty of fluids and follow-up with her family physician. Her symptoms are likely related to musculoskeletal strain or strain Medical Records Medical records narrative: The [address] [address] Ultrasound Report Signed Patient: SARI MOULTON MR#: [id number] : 1995 Acct:[id number] Age/Sex: 28 / F ADM Date: 05/30/24 Loc: ER Attending Dr: Ordering Physician: Oneyda Meek Date of Service: 05/30/24 Procedure(s): US venous doppler LE LT Accession Number(s): [id number] cc: Tom Perkisn M.D.; Oneyda Meek~ The [address] [address] Patient Name: SARI MOULTON MRN: [id number] date: 1995 Sex: F Assigned Patient Location: ER Current Patient Location: ER Accession/Order Number: [id number] Exam Date: 05/30/2024 22:09 Report Date: 05/31/2024 00:14 At the request of: ONEYDA MEEK Procedure: US venous doppler LE LT US venous doppler LE LT, 05/30/2024 10:09 PM EDT INDICATION: LLE swelling, pain COMPARISON: None available at the time of dictation. FINDINGS: Left lower extremity venous duplex The visualized veins of the venous system of the left lower extremity are within normal limits with regard to spontaneous flow, phasic flow, augmentation and compression. No intraluminal thrombus formation is identified. No superficial venous thrombus is present. US/US venous doppler LE LT IMPRESSION: No evidence of acute deep or superficial venous thrombosis in the left lower extremity. Electronically authenticated by: JAVON HOWELL Date: 05/31/2024 00:14 Discharge Plan Discharge Chief Complaint: Extremity Problem, Nontraumatic Clinical Impression: Left thigh pain, Muscle spasms of lower extremity Patient Disposition: Home, Self-Care Time of Disposition Decision: 00:24 Condition: Good Prescriptions / Home Meds: No Action omeprazole 10 mg capsule,delayed release(DR/EC) 10 mg PO BID sucralfate .Route hydroxyzine HCl 25 mg tablet 25 mg PO BID nicotine 21-14-7 mg/24 hr patch, TD daily, sequential See Rx Instructions .ROUTE .COMPLEX Qty: 56 0RF Rx Instructions: apply 1-21 mg NICOTINE PATCH daily for 28 days; follow with 1-14 mg PATCH daily for 14 days, then 1-7mg PATCH daily for 14 days Print Language: Latvian Instructions: Leg Cramps (ED), Muscle Spasm (ED), Leg Pain (ED) Referrals: Tom Perkins MD [Primary Care Provider] - 1 week
--- NOTE | 2024-05-30 21:55 | US_ITS ---
The [place] [id number] Patient Name: SARI MOULTON MRN: [id number] date: 1995 Sex: F Assigned Patient Location: ER Current Patient Location: ER Accession/Order Number: [id number] Exam Date: 05/30/2024 22:09 Report Date: 05/31/2024 00:14 At the request of: JESUS THORNTON Procedure: US venous doppler LE LT US venous doppler LE LT, 05/30/2024 10:09 PM EDT INDICATION: LLE swelling, pain COMPARISON: None available at the time of dictation. FINDINGS: Left lower extremity venous duplex The visualized veins of the venous system of the left lower extremity are within normal limits with regard to spontaneous flow, phasic flow, augmentation and compression. No intraluminal thrombus formation is identified. No superficial venous thrombus is present. US/US venous doppler LE LT IMPRESSION: No evidence of acute deep or superficial venous thrombosis in the left lower extremity. Electronically authenticated by: JAVON HOWELL Date: 05/31/2024 00:14
[2024-05-30] MEDS: METHOCARBAMOL 500 MG TABLET PO (22:40)
== END 2024-05-31 00:31 | disposition home or self-care (01) ==
PROVIDERS: Emergency Provider Emergency Medicine; PCP Family Medicine
DX: M79.605 Pain in left leg (principal); M62.838 Other muscle spasm
CPT/HCPCS: 93971; 99284

== ENCOUNTER 2024-07-02 10:57 | Emergency (ER) | payer OTHER, SELFPAY ==
[2024-07-02 11:03] VITALS: BP 112/73; PULSE 77; TEMP 36.6; O2SAT 99; BMI 21.7
--- OUTSIDE RECORDS SUMMARY | 2024-07-02 11:05 | XMS_ITS | CCD ---
Author Organization [facility] Care Team Providers Care [facility] Former Name Role Phone Marialuisa Huerta Unavailable [phone] Unavailable Unavailable Unavailable Marialuisa Huerta Primary Care Provid er JOLLY BENDER Attending Unav ailable Marialuisa Huerta Primary Care Serene vailable JOLLY BENDER Attending Unav ailable Marialuisa Huerta Primary Care Serene vailable MARIALUISA HUERTA Primary Care Unavailab le Marialuisa Huerta Primary Care Provider Marialuisa Huerta DO Primary Care Provider Unavailable Primary Care Provider Unavailabl e Marialuisa Huerta DO Primary Care Provider SHEFALI KOO Attending Unavailable MARIALUISA HUERTA Primary Care Serene vailable SHEFALI KOO Attending Unavailable MARIALUISA HUERTA Primary Care Serene vailable Tom Perkins MD Primary Care Provider AIDEN SALCEDO Attending Unavailable TOM PERKINS Primary Care Unavailable Tom Perkins MD Primary Care Provider Unavailable Primary Care Provider Unavailabl e Tom Perkins MD Primary Care Provider [phone] ASHANTI QUIÑONEZ Attending Unavailable TOM PERKINS Primary Care Unavailable MARIALUISA HUERTA Primary Care Unavailab le MELISSA SAGASTUME Referring Unavailable MELISSA SAGASTUME Attending Unavailable TOM PERKINS Primary Care Unavailable BRANDYN GHOSH Referring UnavailTOM Garcias Primary Care Unavailable SIRI BARRERA Attending Unavailable TOM PERKINS Primary Care Unavailable LINN POZO Attending Unavailable YARELI COBB Attending Unavailable MARIALUISA HUERTA Primary Care Unavailab le [facility], [facility] Primary Care Unavailable LINN POZO Attending Unavailable CAR[facility], [facility] Primary Care Unavailable LATRICIA JIN Attending Unavailable LATASHA ROSARIO Attending Unavailable MARIALUISA HUERTA Primary [facility]ab [facility] Unavailab le [facility], [facility] Primary Care Unavailable SIRI BARRERA Attending Unavailable [facility], [facility] Primary Care Unavailable CHENCHO PINEDO Attending Unavailable [facility], [facility] Primary Care Unavailable BLAISE DELANEY Attending Unavailable LINN POZO Attending Unavailable BRANDYN GHOSH Referring Unavailabl e [facility] Primary Care Unavailab le NAZEMI I, MELISSA Referring Unavailable CHENCHO PINEDO Attending Unavailable [facility], [facility] Primary Care Unavailable [facility], [facility] Primary Care Unavailable SIRI BARRERA Attending Unavailable [facility], [facility] Primary Care Unavailable [facility], [facility] Primary Care Unavailable SIRI BARRERA Attending Unavailable CAR[facility]A, TOM [facility] Primary Care Unavailable BRANDYN GHOSH Referring Unavailabl e IACOB, ROGE Referring Unavailable [facility], [facility] Primary Care Unavailable [facility], [facility] Primary Care Unavailable IACROGE BAILEY Referring Unavailable [facility], [facility] Primary Care Unavailable MARIALUISA HUERTA Primary Care Unavailab le NAZEMI I, MELISSA Referring Unavailable VIKTOR, TETE A Attending Unavailable CARMINA, TOM S Referring Unavailable VIKTOR, TETE A Referring Unavailable CONY LANIER Attending Unavailable ANGELIA MORENO Admitting Unavailable ANGELIA MORENO Attending Unavailable CARMINA, TOM S Referring Unavailable CARMINA, TOM S Primary Care Unavailable Allergies Allergy Classification Reported Allergen(s) Allergy Type Date of Onset Reaction(s) Facility (1 source) Amoxicillin Drug Allergy 07-07-2018 [place] (6 sources) Penicillins Propensity to adverse reactions to drug 07-07-2018 [place] (8 sources) Penicillins Propensity to adverse reactions to drug 07-07-2018 [facility] (1 source) Penicillins Propensity to adverse reactions to drug 07-07-2018 [facility] Medications Current Medications Medication Drug Class(es) [...] 01/25/2024 Active baclofen 10 mg oral tablet (3 sources) gamma-Aminobutyric Acid-ergic Agonist Start: 06-01-2024 End: 07-01-2024 take 1 tablet by mouth three times daily baclofen (LIORESAL) 10 MG tablet Take 1 tablet by mouth 3 times daily 90 tablet 06/01/2024 07/01/2024 Active Start: 04-14-2024 End: 04-24-2024 take 1 tablet [...] Active cetirizine hydrochloride 10 mg oral tablet (19 sources) Histamine-1 Receptor Antagonist Start: 01-12-2019 End: [...] Active diclofenac sodium 0.01 mg/mg topical gel (13 sources) Nonsteroidal Anti-inflammatory Drug Start: 05-17-2024 diclofenac sodium (VOLTAREN ARTHRITIS PAIN) 1 % gel Indications: Costochondritis Apply 2 g topically in the morning and 2 g at noon and 2 g in the evening and 2 g before bedtime. 100 g 05/17/2024 Active docusate sodium 100 mg oral [...] propionate 0.05 mg/actuat metered dose nasal spray (18 sources) Corticosteroid Start: 05-15-2024 fluticasone propionate (FLONASE) 50 mcg/actuation nasal spray 1 spray. 05/15/2024 Active Start: 05-15-2024 fluticasone (F LONASE) 50 MCG/ACT nasal spray 1 spray by Nasal route daily 05/15/2024 Active Start: 07-09-2021 take 2 spray(s) [...] Active hyoscyamine sulfate 0.125 mg oral tablet (16 sources) Start: 05-07-2024 take 1 tablet by mouth every four hours as needed hyoscyamine (ANASPAZ,LEVSIN) 0.125 mg tablet Take 1 tablet (125 mcg total) by mouth every 4 (four) hours as needed. 05/07/2024 Active Start: 05-07-2024 End: 05-07-2024 take [...] 24 hr nicotine 0.875 mg/hr transdermal system (14 sources) Cholinergic Nicotinic Agonist Start: 05-11-2024 NICOTINE STEP 1 21 MG/24HR 05/11/2024 Active Start: 05-11-2024 End: 06-10-2024 apply 1 dose transdermal route every hour nicotine (NICODERM CQ) 21 mg/[address] 1 patch on the skin. 05/11/2024 06/10/2024 Discontinued (Therapy completed) Start: 04-13-2017 nicotine 21-14 -7 mg/24 hr PTDS Indications: Tobacco abuse Place 1 application on the skin daily. 56 each 0 04/13/2017 Active norethindrone 0.35 mg oral tablet (1 source) Start: 12-10-2023 take 1 tablet by mouth once daily norethindrone (ORTHO MICRONOR) 0.35 MG tablet Take 1 tablet by mouth daily 28 tablet 6 12/10/2023 Active nystatin 711153 unt/ml oral suspension (2 sources) Polyene Antifungal Start: 04-01-2024 End: 04-29-2024 take 5 mL by mouth four times daily nystatin (MYCOSTATIN) 941107 UNIT/ML suspension Indications: Oral lesion Take 5 mLs by mouth 4 times daily for 28 days 280 mL 1 04/01/2024 04/29/2024 Active omeprazole 20 mg delayed release oral capsule (17 sources) Proton Pump Inhibitor Start: 05-17-2024 End: 05-17-2024 take 1 capsule by mouth at bedtime omeprazole (PriLOSEC) 20 mg capsule Indications: Gastroesophageal reflux disease without esophagitis Take 1 capsule (20 mg total) by mouth in the morning and at bedtime. 60 capsule 3 05/17/2024 Active Start: 01-15-2022 take 1 capsule by mo [facility] once daily before breakfast omeprazole (PRILOSEC) 40 MG delayed release capsule Take 1 capsule by mouth every morning (before breakfast) 30 capsule 0 01/15/2022 Suspended ondansetron 4 mg disintegrating oral tablet (14 sources) Serotonin-3 Receptor Antagonist Start: 05-07-2024 take 1 tablet by mouth four times daily as needed for nausea Ondansetron 4 MG Tab Dispersible tablet Take 1 tablet by mouth 4 times daily as needed for Nausea / Vomiting. Place on tongue 15 tablet 05/07/2024 Active Start: 05-02-2024 take 1 tablet by francy three times daily as needed for nausea [...] (ZOFRAN) injecti on 4 mg Start: 04-02-2017 End: 05-31-2024 take 1 tablet by mouth once daily as needed ondansetron (ZOFRAN) 4 MG tablet Take 4 mg by mouth daily as needed. 04/02/2017 Active penicillin v potassium 500 mg oral tablet (1 source) Start: 05-21-2024 penicillin v potassium (VEETID) 500 MG tablet 05/21/2024 Active raNITIdine 150 mg oral tablet (1 source) Histamine-2 Receptor Antagonist Start: 12-30-2018 take 1 tablet by mouth twice daily ranitidine (ZANTAC) 150 MG tablet Indications: Gastroesophageal reflux disease without esophagitis Take 1 tablet by mouth 2 times daily 60 tablet 0 12/30/2018 Active sucralfate 1000 mg oral tablet (14 sources) Aluminum Complex Start: 05-07-2024 take 1 tablet by mouth at bedtime sucralfate (CARAFATE) 1 gram tablet Take 1 tablet (1 g total) by mouth in the morning and 1 tablet (1 g total) at noon and 1 tablet (1 g total) in the evening and 1 tablet (1 g total) before bedtime. 05/07/2024 Active Start: 05-07-2024 take 1 tablet by [...] Start: 08-10-2019 take 1 capsule by mo [facility] once daily venlafaxine (EFFEXOR XR) 37.5 MG [...] 1 ml ketorolac tromethamine 30 mg/ml cartridge (2 sources) Nonsteroidal Anti-inflammatory Drug, Cyclooxygenase Inhibitor Start: 06-08-2024 End: 06-08-2024 30 mg, IntraMUSCular, ONCE, 1 dose, On Thu06/08/24 at 0130, Do not administer for more than 5 days. Start: 01-14-2022 End: 01-14-2022 ketorolac (TORADOL) injectio n 30 mg pantoprazole 40 mg delayed release oral tablet (1 source) Proton Pump Inhibitor Start: 05-02-2024 End: 05-02-2024 take 1 dose by mouth once 40 mg, Oral, ONCE, 1 dose, On Thu05/02/24 at 0015, Do not crush or break. [...] pain; Translations: [Pain in female pelvis] Onset: 4 Resolved: 9 01-12-2019 Episodic Anxiety disorders (3 sources) Anxiety disorder, unspecified; Translations: [Anxiety] Onset: 4 Chronic Attention-deficit, conduct, and disruptive behavior disorders (5 sources) Attention deficit hyperactivity disorder, combined type; Translations: [Attention-deficit hyperactivity disorder, combined type] Onset: 6 12-06-2015 Chronic Biliary tract disease (4 sources) Biliary dyskinesia; Translations: [Other specified diseases of gallbladder] Onset: 4 05-17-2024 Episodic Disorders of teeth and jaw (2 sources) Toothache; Translations: [Other specified disorders of teeth and supporting structures] Onset: 4 06-08-2024 Episodic E Codes: Fall (2 sources) Fall; Translations: [Unspecified fall, initial encounter] Onset: 4 05-28-2024 Episodic Esophageal disorders (13 sources) Gastroesophageal reflux disease without esophagitis; Translations: [Gastro-esophageal reflux disease without esophagitis] Onset: 4 05-17-2024 Chronic Gastritis and duodenitis (2 sources) Gastritis, unspecified, without bleeding; Translations: [Gastritis] Onset: 4 05-07-2024 Episodic Genitourinary symptoms and ill-defined conditions (2 sources) Blood in urine; Translations: [Hematuria, unspecified] Onset: 4 03-29-2024 Episodic Immunizations and screening for infectious disease (2 sources) Requires diphtheria, tetanus and pertussis vaccination; Translations: [Encounter for immunization] Onset: 4 06-15-2024 Episodic Miscellaneous mental health disorders (1 source) Hypochondriasis; 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 Mood disorders (4 sources) Mixed anxiety and depressive disorder; Translations: [Anxiety disorder, unspecified] Onset: 6 12-06-2015 Chronic Nausea and vomiting (2 sources) Nausea; Translations: [Nausea] Onset: 4 Episodic Nonspecific chest pain (5 sources) Chest pain; Translations: [Chest pain, unspecified] Onset: 4 05-02-2024 Episodic Other bone disease and musculoskeletal deformities (11 sources) Costal chondritis; Translations: [Chondrocostal junction syndrome [Tietze]] Onset: 4 05-17-2024 Episodic Other bone disease and musculoskeletal deformities (1 source) Chondrocostal junction syndrome [Tietze]; Translations: [Chondrocostal junction syndrome (tietze)] Onset: 4 Episodic Other circulatory disease (1 source) Elevated blood pressure; Translations: [Elevated blood-pressure reading, without diagnosis of hypertension] 06-10-2024 Episodic Other circulatory disease (1 source) Elevated blood-pressure reading, without diagnosis of hypertension; Translations: [Elevated blood-pressure reading, without diagnosis of hypertension] Onset: 4 Episodic Other connective tissue disease (1 source) Muscle pain; Translations: [Myalgia, unspecified site] 04-24-2024 Episodic Other connective tissue disease (1 source) Pain in left leg; Translations: [Pain in left leg] Onset: 4 Episodic Other connective tissue disease (1 source) Myalgia, unspecified site; Translations: [Myalgia, unspecified site] Onset: 4 Episodic Other connective tissue disease (2 sources) Pain in upper limb; Translations: [Arm Pain] Onset: 4 Episodic Other ear and sense organ disorders (1 source) Otalgia, right ear; Translations: [Otalgia, unspecified] Episodic Other gastrointestinal disorders (1 source) Abdominal bloating; Translations: [Bloating] Episodic Other gastrointestinal disorders (2 sources) Dysphagia; Translations: [Dysphagia, unspecified] 05-31-2024 Episodic Other gastrointestinal disorders (1 source) Dysphagia, unspecified; Translations: [Dysphagia, unspecified] Onset: 4 Episodic Other and delivery including normal (20 sources) Normal labor; Translations: [Delivery normal] Onset: 8 Resolved: 9 01-12-2019 Episodic Otitis media and related conditions (1 source) Otitis media; Translations: [Otitis media, unspecified, unspecified ear] Episodic Residual codes; unclassified (1 source) Tobacco user Chronic Residual codes; unclassified (1 source) Intolerant of ambient temperature; Translations: [Other general symptoms and signs] 01-22-2024 Episodic Residual codes; unclassified (1 source) Pain, unspecified; Translations: [Pain, unspecified] Onset: 4 Episodic Residual codes; unclassified (2 sources) Family history of cardiac disorder; Translations: [Family history of other congenital malformations, deformations and chromosomal abnormalities] 06-10-2024 Episodic Residual codes; unclassified (1 source) Family history of other congenital malformations, deformations and chromosomal abnormalities; Translations: [Family history of other congenital malformations, deformations and chromosomal abnormalities] Onset: 4 Episodic Spondylosis; intervertebral disc disorders; other back problems (5 sources) Backache; Translations: [Dorsalgia, unspecified] Onset: 4 Episodic Sprains and strains (2 sources) Strain of muscle, fascia and tendon of the posterior muscle group at thigh level, left thigh, initial encounter; Translations: [Strain of muscle, fascia and tendon of lower back, initial encounter] Onset: 4 Episodic Substance-related disorders (18 sources) Narcotic drug user; Translations: [Opioid dependence, uncomplicated] Onset: 8 11-10-2017 Chronic Superficial injury; contusion (2 sources) Contusion of left hand; Translations: [Contusion of left hand, initial encounter] Onset: 4 05-28-2024 Episodic Unclassified (3 sources) Patient encounter status; Translations: [Drug abuse counseling and surveillance of drug abuser] Onset: 7 Resolved: 9 04-23-2017 Unclassified (1 source) Pre-op Exam Onset: 4 Unclassified (1 source) New Patient Onset: 4 Unclassified (1 source) right upper quadrant abdominal pain Onset: 4 Past or Other Problems Problem Classification Problem [...] of diseases classified elsewhere] Onset: 01-11-2024 Episodic Cancer of cervix (13 sources) Atypical squamous cells of undetermined significance on cervical Papanicolaou smear; Translations: [Atypical squamous cells of undetermined significance on cytologic smear of cervix (ASC-US)] Onset: 06-30-2022 Episodic Inflammatory diseases of female pelvic organs (2 sources) Bacterial vaginosis; Translations: [Acute vaginitis] Onset: 01-11-2024 01-11-2024 Episodic Intestinal obstruction without hernia (1 source) Intussusception; Translations: [Intussusception] Onset: 10-21-2023 Episodic Other female genital disorders (12 sources) Pelvic congestion syndrome; Translations: [Other specified conditions associated with female genital organs and menstrual cycle] Onset: 12-02-2023 12-02-2023 Episodic Other gastrointestinal disorders (11 sources) Constipation; Translations: [Constipation, unspecified] Onset: 01-15-2024 01-15-2024 Episodic Other gastrointestinal disorders (11 sources) Diarrhea; Translations: [Diarrhea, unspecified] Onset: 01-15-2024 [...] cervix] Onset: 11-08-2023 Episodic Other skin disorders (11 sources) Skin tag; Translations: [Other hypertrophic disorders of the skin] Onset: 06-30-2022 06-30-2022 Episodic Other upper respiratory disease (12 sources) Nasal discharge; Translations: [Other specified disorders [...] Test Name Value Interpretation Reference Range Facility Surgical Pathologyon 024 Surgical Pathology Normal [facility] Comment on above: Result Comment: [facility] [address] [place] [address] Surgical Pathology Consultation Patient Name:SARI MOULTON:1995 (Age: 28)Gender:FTaken:4Reported:06/23/2024hysician(s):MISSAEL MORENO ([id number])Copy To:[facility] CenterAccession #:[id number]. Rec. #:[id number]: #[id number] Final Pathologic Diagnosis 1. Gastric biopsies: Normal gastric corpus and antral mucosa. No inflammation, intestinal metaplasia, dysplasia or H. pylori organisms identified. 2. Distal esophageal biopsies: Unremarkable squamous mucosa. No active or eosinophilic esophagitis identified. No intestinal metaplasia or dysplasia identified. 3. Proximal esophageal biopsies: Unremarkable squamous mucosa. No active or eosinophilic esophagitis identified. No intestinal metaplasia or dysplasia identified. Report Electronically Signed Out ssi/06/23/2024Jony Vasquez M.D. Interpretation performed at [facility], [address] [place] [address], License number: [id number]. Clinical History Right upper quadrant abdominal pain, Dysphagia, unspecified type, Part 1; R/O H. Pylori, Parts 2 and 3; R/O EOE Gross Description 1. Received in formalin labeled KENNEY, #1: Gastric biopsy R/O H. pylori are 4 desai bits/strips of soft tissue, ranging from 0.2-0.7 cm in greatest dimension. Filtered and submitted in a single cassette. (1, ns, [id number], m4) MG 2. Received in formalin labeled KENNEY, #2: Esophageal distal biopsy R/O EOE are 2 desai bits of soft tissue, each 0.4 cm in greatest dimension. Filtered and submitted in a single cassette. (1, ns, [id number], m4) MG 3. Received in formalin labeled KENNEY, #3: Esophageal proximal biopsy R/O EOE are 4 desai bits of soft tissue, ranging from 0.2-0.4 cm in greatest dimension. Filtered and submitted in a single cassette. (1, ns, [id number], m4) MG mjg/06/20/2024NSK Specimen(s) Received 1: Gastric biopsies 2: Distal esophageal biopsies 3: Proximal esophageal biopsies Fee Codes(s): 1; 07464 2; 86317 3; 50603 POCT EKGon 06-10-2024 [facility] XR HAND LEFT (MIN 3 VIEWS)on 05-29-2024 [...] Jonathan Wills MD 05/29/24 Final result Normal [facility] C-Reactive Proteinon 024 CRP [Mass/Vol] mg/L Normal 0.0-5.0 [facility] Comment on above: Performed By: #### C ELPX #### [address] [id number] Wharf Tender Helper: John Mason MD #### CRP, CP, CDP #### [facility] [address] [place] [address] Wharf Tender Helper: Calin Tapia MD CBC with Diffon 05-23-2024 Abs. Basophil 0.06 k/uL Normal 0.00-0.20 [facility] Comment on above: Performed By: #### C YTCGP #### [address] [id number] Wharf Tender Helper: Jonh Mason MD Abs.Imm.Granulocyte <0.03 Normal 0.00-0.30 [facility] Comment on above: Performed By: #### C YTCGP #### [address] [address] Wharf Tender Helper: John Mason MD Abs.Neutrophil (Seg) 4.11 k/uL Normal 1.50-8.10 [facility] Comment on above: Performed By: #### C YTCGP #### [address] [address] Wharf Tender Helper: John Mason MD Basophils/100 WBC (Bld) 1 % Normal 0-2 [facility] Comment on above: Performed By: #### C YTCGP #### [address] [address] Wharf Tender Helper: John Mason MD Eosinophils (Bld) [#/Vol] 0.21 10*3/uL Normal 0.00-0.44 [facility] Comment on above: Performed By: #### C YTCGP #### [address] [address] Wharf Tender Helper: John Mason MD Eosinophils/100 WBC (Bld) 3 % Normal 1-4 [facility] Comment on above: Performed By: #### C YTCGP #### [address] [address] Wharf Tender Helper: John Mason MD Erythrocyte distribution width (RBC) [Ratio] 11.5 % Low 11.8-14.4 [facility] Comment on above: Performed By: #### C YTCGP #### [address] [address] Wharf Tender Helper: John Mason MD Hematocrit (Bld) [Volume fraction] 37.4 % Normal 36.3-47.1 [facility] Comment on above: Performed By: #### C YTCGP #### [address] [address] Wharf Tender Helper: John Mason MD Hemoglobin (Bld) [Mass/Vol] 13.4 g/dL Normal 11.9-15.1 [facility] Comment on above: Performed By: #### C YTCGP #### [address] [address] Wharf Tender Helper: John Mason MD Immature granulocytes/100 WBC (Bld) 0 % Normal 0 [facility] Comment on above: Performed By: #### C YTCGP #### [address] [address] Wharf Tender Helper: John Mason MD Lymphocytes (Bld) [#/Vol] 2.38 10*3/uL Normal 1.10-3.70 [facility] Comment on above: Performed By: #### C YTCGP #### [address] [address] Wharf Tender Helper: John Mason MD Lymphocytes/100 WBC (Bld) 33 % Normal 24-43 [facility] Comment on above: Performed By: #### C YTCGP #### [address] [address] Wharf Tender Helper: John Mason MD MCH (RBC) [Entitic mass] 33.7 pg High 25.2-33.5 [facility] Comment on above: Performed By: #### C YTCGP #### [address] [address] Wharf Tender Helper: John Mason MD MCHC (RBC) [Mass/Vol] 35.8 g/dL High 28.4-34.8 [facility] Comment on above: Performed By: #### C YTCGP #### [address] [address] Wharf Tender Helper: John Mason MD MCV (RBC) [Entitic vol] 94.0 fL Normal 82.6-102.9 [facility] Comment on above: Performed By: #### C YTCGP #### [address] [address] Wharf Tender Helper: John Mason MD Monocytes (Bld) [#/Vol] 0.43 10*3/uL Normal 0.10-1.20 [facility] Comment on above: Performed By: #### C YTCGP #### [address] [address] Wharf Tender Helper: John Mason MD Monocytes/100 WBC (Bld) 6 % Normal 3-12 [facility] Comment on above: Performed By: #### C YTCGP #### [address] [address] Wharf Tender Helper: John Mason MD Neutrophil (Seg) 57 % Normal 36-65 [facility] Comment on above: Performed By: #### C YTCGP #### [address] [address] Wharf Tender Helper: John Mason MD NRBC Automated 0.0 per 100 WBC Normal 0.0 [facility] Comment on above: Performed By: #### C YTCGP #### [address] [address] Wharf Tender Helper: John Mason MD Platelet mean volume (Bld) [Entitic vol] 9.6 fL Normal 8.1-13.5 [facility] Comment on above: Performed By: #### C YTCGP #### [address] [address] Wharf Tender Helper: John Mason MD Platelets (Bld) [#/Vol] 235 10*3/uL Normal 138-453 [facility] Comment on above: Performed By: #### C YTCGP #### [address] [address] Wharf Tender Helper: John Mason MD RBC (Bld) [#/Vol] 3.98 10*6/uL Normal 3.95-5.11 [facility] Comment on above: Performed By: #### C YTCGP #### [facility] [employer] [address] [place] [address] Wharf Tender Helper: John Mason MD WBC (Bld) [#/Vol] 7.2 10*3/uL Normal 3.5-11.3 [facility] Comment on above: Performed By: #### C YTCGP #### [address] [address] Wharf Tender Helper: John Mason MD Comp Metabolic Profon 2023 Albumin [Mass/Vol] 4.7 g/dL Normal 3.5-5.2 [facility] Comment on above: Performed By: #### C YTCGP #### [address] [address] Wharf Tender Helper: John Mason MD Albumin/Glob Ratio 2.2 Normal 1.0-2.5 [facility] Comment on above: Performed By: #### C YTCGP #### [address] [address] Wharf Tender Helper: John Mason MD Alkaline Phos 49 U/L Normal 35-104 [facility] Comment on above: Performed By: #### C YTCGP #### [facility] [address] [place] [address] Wharf Tender Helper: John Mason MD ALT [Catalytic activity/Vol] 15 U/L Normal 10-35 [facility] Comment on above: Performed By: #### C YTCGP #### [employer] [address] [place] [address] Wharf Tender Helper: John Mason MD Anion gap [Moles/Vol] 9 mmol/L Normal 9-16 [facility] Comment on above: Performed By: #### C YTCGP #### [facility] [address] [place] [address] Wharf Tender Helper: John Mason MD AST [Catalytic activity/Vol] 20 U/L Normal 10-35 [facility] Comment on above: Performed By: #### C YTCGP #### [address] [address] Wharf Tender Helper: John Mason MD Bilirubin [Mass/Vol] 0.6 mg/dL Normal 0.00-1.20 [facility] Comment on above: Performed By: #### C YTCGP #### [address] [address] Wharf Tender Helper: John Mason MD BUN/CRE Ratio 13 Normal 9-20 [facility] Comment on above: Performed By: #### C YTCGP #### [address] [address] Wharf Tender Helper: John Mason MD Calcium [Mass/Vol] 9.3 mg/dL Normal 8.6-10.4 [facility] Comment on above: Performed By: #### C YTCGP #### [address] [address] Wharf Tender Helper: John Mason MD Chloride [Moles/Vol] 103 mmol/L Normal 98-107 [facility] Comment on above: Performed By: #### C YTCGP #### [address] [address] Wharf Tender Helper: John Mason MD CO2 [Moles/Vol] 27 mmol/L Normal 20-31 [facility] Comment on above: Performed By: #### C YTCGP #### [address] [address] Wharf Tender Helper: John Mason MD Creatinine [Mass/Vol] 0.9 mg/dL Normal 0.50-0.90 [facility] Comment on above: Performed By: #### C YTCGP #### [address] [address] Wharf Tender Helper: John Mason MD GFR/1.73 sq M.predicted among non-blacks MDRD (S/P/Bld) [Vol rate/Area] mL/min/{1.73_m2} Normal >60 [facility] Comment on above: Result Comment: These results [...] affects renal tubular secretion. Performed By: #### C YTCGP #### [facility] [address] [place] [address] Wharf Tender Helper: John Mason MD Glucose [Mass/Vol] 122 mg/dL High 74-99 [facility] Comment on above: Performed By: #### C YTCGP #### [facility] [address] [place] [address] Wharf Tender Helper: John Mason MD Potassium [Moles/Vol] 3.8 mmol/L Normal 3.7-5.3 [facility] Comment on above: Performed By: #### C YTCGP #### [employer] [address] [place] [address] Wharf Tender Helper: John Mason MD Protein [Mass/Vol] 6.9 g/dL Normal 6.6-8.7 [facility] Comment on above: Performed By: #### C YTCGP #### [employer] [address] [place] [address] Wharf Tender Helper: John Mason MD Sodium [Moles/Vol] 139 mmol/L Normal 136-145 [facility] Comment on above: Performed By: #### C YTCGP #### [employer] [address] [place] [address] Wharf Tender Helper: John Mason MD Urea nitrogen [Mass/Vol] 12 mg/dL Normal 6-20 [facility] Comment on above: Performed By: #### C YTCGP #### [address] [place], [place] [phone] Wharf Tender Helper: John Mason MD D-Dimer Teston 05-23-2024 D-Dimer Test <0.27 Normal 0.00-0.59 [facility] Comment on above: Result Comment: When [...] patients with distal DVT. Performed By: #### C ELPX #### [address] [id number] Wharf Tender Helper: John Mason MD #### CRP, CP, CDP #### [facility] [address] [place] [address] Wharf Tender Helper: Calin Tapia MD Magnesiumon 05-23-2024 Magnesium [Mass/Vol] 2.3 mg/dL Normal 1.6-2.6 [facility] Comment on above: Performed By: #### C YTCGP #### [address] [place], [place] [phone] Wharf Tender Helper: John Mason MD UA w/Reflex Cultureon 2023 Bilirubin, SemiQt,Ur Negative Normal NEG [facility] Comment on above: Performed By: #### C ELPX #### [address] [address] Wharf Tender Helper: John Mason MD #### CRP, CP, CDP #### [address] [place], [place] [phone] Wharf Tender Helper: Calin Tapia MD Blood, Urine Negative Normal NEG [facility] Comment on above: Performed By: #### C ELPX #### [address] [address] Wharf Tender Helper: John Mason MD #### CRP, CP, CDP #### [address] [place] [id number] Wharf Tender Helper: Calin Tapia MD Clarity (U) Clear Normal CLEAR [facility] Comment on above: Performed By: #### C ELPX #### [address] [address] Wharf Tender Helper: John Mason MD #### CRP, CP, CDP #### [address] [place], [place] [phone] Wharf Tender Helper: Calin Tapia MD Color (U) Yellow Normal YEL [facility] Comment on above: Performed By: #### C ELPX #### [address] [address] Wharf Tender Helper: John Mason MD #### CRP, CP, CDP #### [address] [place], [place] [id number] Wharf Tender Helper: Calin Tapia MD Glucose Ql (U) Negative Normal NEG [facility] Comment on above: Performed By: #### C ELPX #### [address] [address] Wharf Tender Helper: John Mason MD #### CRP, CP, CDP #### [address] [place], [place] [phone] Wharf Tender Helper: Calin Tapia MD Ketones Ql (U) Negative Normal NEG [facility] Comment on above: Performed By: #### C ELPX #### [address] [address] Wharf Tender Helper: John Mason MD #### CRP, CP, CDP #### [address] [place], [place] [phone] Wharf Tender Helper: Calin Tapia MD Leukocyte esterase Test strip Ql (U) Negative Normal NEG [facility] Comment on above: Performed By: #### C ELPX #### [address] [address] Wharf Tender Helper: John Mason MD #### CRP, CP, CDP #### [address] [place], [place] [phone] Wharf Tender Helper: Calin Tapia MD Nitrite,Ur Negative Normal NEG [facility] Comment on above: Performed By: #### C ELPX #### [address] [address] Wharf Tender Helper: John Mason MD #### CRP, CP, CDP #### [address] [place], [place] [phone] Wharf Tender Helper: Calin Tapia MD PH,Ur 6.5 Normal 5.0-9.0 [facility] Comment on above: Performed By: #### C ELPX #### [address] [address] Wharf Tender Helper: John Mason MD #### CRP, CP, CDP #### [address] [place], [place] [phone] Wharf Tender Helper: Calin Tapia MD Protein Ql (U) Negative Normal NEG [facility] Comment on above: Performed By: #### C ELPX #### [address] [address] Wharf Tender Helper: John Mason MD #### CRP, CP, CDP #### [address] [place], [place] [phone] Wharf Tender Helper: Calin Tapia MD Spec. [place],Ur 1.015 Normal 1.010-1.020 [facility] Comment on above: Performed By: #### C ELPX #### [address] [address] Wharf Tender Helper: John Mason MD #### CRP, CP, CDP #### [address] [place], [place] [phone] Wharf Tender Helper: Calin Tapia MD Urobilinogen,Ur Normal Normal 0.0-1.0 [facility] Comment on above: Performed By: #### C ELPX #### [address] [address] Wharf Tender Helper: John Mason MD #### CRP, CP, CDP #### [address] [place], [place] [phone] Wharf Tender Helper: Calin Tapia MD Urinalysis,Microon 4 Epithelial cells LM Ql (Urine sed) 0 TO 2 Normal 0-25 [facility] Comment on above: Performed By: #### C ELPX #### [address] [address] Wharf Tender Helper: John Mason MD #### CRP, CP, CDP #### [address] [place], [place] [phone] Wharf Tender Helper: Calin Tapia MD Urine RBC's 0 TO 2 Normal 0-2 [facility] Comment on above: Performed By: #### C ELPX #### [facility] [address] [place], [place] [id number] Wharf Tender Helper: John Mason MD #### CRP, CP, CDP #### [address] [place] [address] Wharf Tender Helper: Calin Tapia MD Urine WBC's 0 TO 2 Normal 0-5 [facility] Comment on above: Performed By: #### C ELPX #### [facility] [address] [place] [address] Wharf Tender Helper: John Mason MD #### CRP, CP, CDP #### [address] [place], [place] [phone] Wharf Tender Helper: Calin Tapia MD BETA HCG, QUAL, BLOODon HCG ( test) Ql Negative [facility] ABSOLUTE BAS 0.1 10*3/uL Normal 0.0-0.2 [facility] Comment on above: Performed By: #### A CBC #### Testing performed at [address] [address] ABSOLUTE EOS 0.1 10*3/uL Normal 0.0-0.7 [facility] Comment on above: Performed By: #### A CBC #### Testing performed at [address] [address] ABSOLUTE NEUTROPHIL COUNT 4.8 10*3/uL Normal 1.4-6.5 [facility] Comment on above: Performed By: #### A CBC #### Testing performed at [address] [address] Basophils/100 WBC (Bld) 0.8 % Normal 0.0-2.0 [facility] Comment on above: Performed By: #### A CBC #### Testing performed at [address] [address] DTYPE AUTO DIFF Normal [facility] Comment on above: Performed By: #### A CBC #### Testing performed at [address] [address] Eosinophils/100 WBC (Bld) 0.8 % Normal 0.0-11.0 [facility] Comment on above: Performed By: #### A CBC #### Testing performed at [address] [address] Lymphocytes (Bld) [#/Vol] 1.6 10*3/uL Normal 1.2-3.4 [facility] Comment on above: Performed By: #### A CBC #### Testing performed at [address] [address] Lymphocytes/100 WBC (Bld) 22.8 % Normal 20.0-55.0 [facility] Comment on above: Performed By: #### A CBC #### Testing performed at [address] [address] Monocytes (Bld) [#/Vol] 0.5 10*3/uL Normal 0.0-0.7 [facility] Comment on above: Performed By: #### A CBC #### Testing performed at [address] [address] Monocytes/100 WBC (Bld) 6.6 % Normal 0.0-10.0 [facility] Comment on above: Performed By: #### A CBC #### Testing performed at [address] [address] Neutrophils/100 WBC (Bld) 69.0 % Normal 37.0-75.0 [facility] Comment on above: Performed By: #### A CBC #### Testing performed at [address] [place] [address] Erythrocyte distribution width (RBC) [Ratio] 12.7 % Normal 11.5-14.5 [facility] Comment on above: Performed By: #### A CBC #### Testing performed at [address] [address] Hematocrit (Bld) [Volume fraction] 35.6 % Low 36.0-48.0 [facility] Comment on above: Performed By: #### A CBC #### Testing performed at [address] [address] Hemoglobin (Bld) [Mass/Vol] 12.6 g/dL Normal 12.0-16.0 [facility] Comment on above: Performed By: #### A CBC #### Testing performed at [address] [address] MCH (RBC) [Entitic mass] 34.2 pg Normal 26.0-35.0 [facility] Comment on above: Performed By: #### A CBC #### Testing performed at [address] [address] MCHC (RBC) [Mass/Vol] 35.3 g/dL Normal 27.0-37.0 [facility] Comment on above: Performed By: #### A CBC #### Testing performed at [address] [address] MCV (RBC) [Entitic vol] 96.8 fL Normal 80.0-100.0 [facility] Comment on above: Performed By: #### A CBC #### Testing performed at [address] [address] Platelet mean volume (Bld) [Entitic vol] 7.3 fL Low 7.4-11.0 [facility] Comment on above: Performed By: #### A CBC #### Testing performed at [address] [address] Platelets (Bld) [#/Vol] 231 10*3/uL Normal 130-400 [facility] Comment on above: Performed By: #### A CBC #### Testing performed at [place] [address] [place] [address] RBC (Bld) [#/Vol] 3.68 10*6/uL Low 4.0-5.4 [facility] Comment on above: Performed By: #### A CBC #### Testing performed at [place] [place] [address] WBC (Bld) [#/Vol] 6.9 10*3/uL Normal 3.6-11.0 [facility] Comment on above: Performed By: #### A CBC #### Testing performed at [place] [address] [place] [facility] [place] [address] CBC, EDIF, PLATELETon 2023 ABSOLUTE BASOPHIL COUNT 0.1 10*3/uL 0.0 - 0.2 10*3/uL [facility] Basophils/100 WBC (Bld) 0.8 % 0.0 - 2.0 % [facility] Differential cell count method Nom (Bld) AUTO DIFF % [facility] Eosinophils (Bld) [#/Vol] 0.1 10*3/uL 0.0 - 0.7 10*3/uL [facility] Eosinophils/100 WBC (Bld) 0.8 % 0.0 - 11.0 % [facility] Erythrocyte distribution width (RBC) [Ratio] 12.7 % 11.5 - 14.5 % [facility] Hematocrit (Bld) [Volume fraction] 35.6 % Low 36.0 - 48.0 % [facility] Hemoglobin (Bld) [Mass/Vol] 12.6 g/dL [facility] Interpretation and review of laboratory results Abnormal [facility] Lymphocytes (Bld) [#/Vol] 1.6 10*3/uL 1.2 [...] [#/Vol] 6.9 10*3/uL 3.6 - 11.0 10*3/uL [facility] CMP FASTINGon 05-07-2024 A:G RATIO 1.4 RATIO Normal 1.3-2.2 [facility] Comment on above: Performed By: #### A CBC #### Testing performed at [address] [address] ALBUMIN 4.2 G/dl Normal 3.5-5.0 [facility] Comment on above: Performed By: #### A CBC #### Testing performed at [place] [address] [place] [address] ALP [Catalytic activity/Vol] 44 U/L Normal 38-126 [facility] Comment on above: Performed By: #### A CBC #### Testing performed at [place] [address] [place] [address] ALT [Catalytic activity/Vol] 17 U/L Normal <35 [facility] Comment on above: Performed By: #### A CBC #### Testing performed at [address] [address] AST [Catalytic activity/Vol] 24 U/L Normal 14-36 [facility] Comment on above: Performed By: #### A CBC #### Testing performed at [address] [address] Bilirubin [Mass/Vol] 0.7 mg/dL Normal 0.2-1.3 [facility] Comment on above: Performed By: #### A CBC #### Testing performed at [address] [address] Calcium [Mass/Vol] 8.7 mg/dL Normal 8.4-10.2 [facility] Comment on above: Performed By: #### A CBC #### Testing performed at [address] [address] Chloride [Moles/Vol] 110 mmol/L High 98-107 [facility] Comment on above: Result Comment: Plea note: Triglyceride levels of 600mg/dL or higher may positively bias chloride results by approximately 2.1 mmol Performed By: #### A CBC #### Testing performed at [address] [address] CO2 [Moles/Vol] 23 mmol/L Normal 22-30 [facility] Comment on above: Performed By: #### A CBC #### Testing performed at [address] [address] Creatinine [Mass/Vol] 0.70 mg/dL Normal 0.7-1.2 [facility] Comment on above: Performed By: #### A CBC #### Testing performed at [address] [address] EST. GFR, 127 ml/min/1.73sq.m Normal [facility] Comment on above: Performed By: #### A CBC #### Testing performed at [address] [address] EST. GFR,Non 105 ml/min/1.73sq.m Normal [facility] Comment on above: Performed By: #### A CBC #### Testing performed at [address] [address] GFR Information Average GFR for 18-2 9 years old = 116. Normal [facility] Comment on above: Result Comment: [employer] silvano Kidney disease, GFR = <60. Kidney failure, GFR = <15. The GFR estimate is not adjusted for extreme body surface area or acute process, nor has it been validated for women or ethnic groups other than and . Performed By: #### A CBC #### Testing performed at [address] [address] Glucose [Mass/Vol] 86 mg/dL Normal 70-100 [facility] Comment on above: Result Comment: NORMAL <100 mg/dL PREDIABETES 101-126 mg/dL DIABETES 126 mg/dL or higher Performed By: #### A CBC #### Testing performed at [address] [address] Potassium [Moles/Vol] 4.3 mmol/L Normal 3.5-5.1 [facility] Comment on above: Performed By: #### A CBC #### Testing performed at [address] [address] Protein [Mass/Vol] 7.2 g/dL Normal 6.3-8.2 [facility] Comment on above: Performed By: #### A CBC #### Testing performed at [address] [address] Sodium [Moles/Vol] 140 mmol/L Normal 137-145 [facility] Comment on above: Performed By: #### A CBC #### Testing performed at [address] [address] Urea nitrogen [Mass/Vol] 8 mg/dL Normal 7-20 [facility] Comment on above: Performed By: #### A CBC #### [place] [address] COMPREHENSIVE METABOLIC PANE Akash 05-07-2024 Albumin [Mass/Vol] 4.2 G/dl 3.5 - 5.0 G/dl [facility] Albumin/Globulin [Mass ratio] 1.4 {ratio} [facility] ALP [Catalytic activity/Vol] 44 U/L [facility] ALT [Catalytic activity/Vol] 17 U/L NINF [facility] AST [Catalytic activity/Vol] 24 U/L [facility] Bilirubin [Mass/Vol] 0.7 mg/dL [facility] Calcium [Mass/Vol] 8.7 mg/dL [facility] Chloride [Moles/Vol] 110 mmol/L High [facility] Comment on above: Please note: Triglyc eride levels of 600mg/dL or higher may positively bias chloride results by approximately 2.1 mmol CO2 [Moles/Vol] 23 mmol/L [facility] Creatinine [Mass/Vol] 0.70 mg/dL [facility] [...] Interpretation and review of laboratory results Abnormal [facility] Potassium [Moles/Vol] 4.3 mmol/L [facility] Protein [Mass/Vol] 7.2 g/dL [facility] Sodium [Moles/Vol] 140 mmol/L [facility] Urea nitrogen [Mass/Vol] 8 mg/dL [facility] HCG ( test) Qlon [facility] HCG ( test) Ql (U)o n 05-07-2024 [facility] HCG QUALITATIVE, URINEon HCG ( test) Ql (U) Negative [facility] LIPASEon 05-07-2024 Lipase [Catalytic activity/Vol] 44 U/L 23 - 300 U/L [facility] LIPASE,SERUMon 05-07-2024 LIPASE,SERUM 44 U/L Normal 23-300 [facility] Comment on above: Performed By: #### A CBC #### [place] [address] No Panel Informationon 05-07 [facility] SERUM HCG QUALon 05-07-2024 SERUM BETA HCG,QUAL Negative Normal [facility] Comment on above: Performed By: #### A CBC #### [place] [address] URINALYSIS, MACROon 05-07-20 24 Bilirubin Ql (U) Negative NEGATIVE [facility] Clarity (U) CLEAR CLEAR [facility] Color (U) LIGHT YELLOW Abnormal YELLOW [facility] Glucose Test strip (U) [Mass/Vol] Negative NEGATIVE mg/dl [facility] Hemoglobin Ql (U) Negative NEGATIVE [facility] Interpretation and review of laboratory results Abnormal [facility] Ketones (U) [Mass/Vol] Negative NEGATIVE mg/dl [facility] Leukocyte esterase Test strip Ql (U) Negative NEGATIVE [facility] Nitrite Ql (U) Negative NEGATIVE [facility] pH (U) 7.5 [pH] High 5.0 - 7.0 [facility] Protein Ql (U) Negative NEGATIVE mg/dl [facility] Specific gravity (U) [Rel density] 1.010 1.010 - 1.025 [facility] Urobilinogen (U) [Mass/Vol] 0.2 mg/dL [facility] URINE HCG QUALon 05-07-2024 Beta HCG ( test) Ql (U) Negative Normal [facility] URINE MACROSCOPICon 05-07-20 24 Bilirubin Ql (U) Negative Normal NEGATIVE [facility] Clarity (U) CLEAR Normal CLEAR [facility] Color (U) LIGHT YELLOW Abnormal YELLOW [facility] Glucose Ql (U) Negative Normal NEGATIVE [facility] pH (U) 7.5 [pH] High 5.0-7.0 [facility] URINE HEMOGLOBIN Negative Normal NEGATIVE [facility] URINE KETONE Negative Normal NEGATIVE [facility] URINE LEUKOTEST Negative Normal NEGATIVE [facility] URINE NITRATES Negative Normal NEGATIVE [facility] URINE SPEC GRAVITY 1.010 Normal 1.010-1.025 [facility] URINE TOTAL PROTEIN Negative Normal NEGATIVE [facility] Urobilinogen Qn (U) 0.2 {Shane'U}/dL Normal 0.2-1.0 [facility] URINE MICROSCOPICon 05-07-20 24 Bacteria LM.HPF (Urine sed) [#/Area] Negative NEGATIVE [facility] Casts LM.LPF (Urine sed) [#/Area] NONE NONE /LPF [facility] Crystals LM Nom (Urine sed) NONE NONE [facility] Epithelial cells LM Ql (Urine sed) 1 TO 5 /HPF [facility] Mucus Ql (Urine sed) Negative NEGATIVE [facility] RBC LM.HPF (Urine sed) [#/Area] Negative NEGATIVE /HPF [facility] Urine sediment comments LM Moses (Urine sed) CULTURE CRITERIA NOT MET, NO CULTURE PERFORMED. [facility] WBC LM.HPF (Urine sed) [#/Area] 1 TO 5 NEGATIVE /HPF [facility] Bacteria LM.HPF (Urine sed) [#/Area] Negative Normal NEGATIVE [facility] CASTS NONE Normal NONE [facility] CRYSTAL NONE Normal NONE [facility] Epithelial cells LM Ql (Urine sed) 1 TO 5 Normal [facility] Mucus Ql (Urine sed) Negative Normal NEGATIVE [facility] URINE COMMENT CULTURE CRITERIA NOT MET, NO CULTURE PERFORMED. Normal [facility] URINE RBC'S Negative Normal NEGATIVE [facility] URINE WBC'S 1 TO 5 Normal NEGATIVE [facility] CBC with Auto Differentialon 05-02-2024 Basophils (Bld) [#/Vol] 0.09 10*3/uL [facility] Basophils/100 WBC (Bld) 1 % 0 - 2 % [facility] Eosinophils (Bld) [#/Vol] 0.39 10*3/uL [facility] Eosinophils/100 WBC (Bld) 4 % 1 - 4 % [facility] Erythrocyte distribution width (RBC) [Ratio] 11.7 % Low 11.8 - 14.4 % [facility] Hematocrit (Bld) [Volume fraction] 37.2 % 36.3 - 47.1 % [facility] Hemoglobin (Bld) [Mass/Vol] 13.6 g/dL 11.9 - 15.1 g/dL [facility] Immature granulocytes (Bld) [#/Vol] [facility] Immature granulocytes/100 WBC (Bld) 0 % 0 [facility] Interpretation and review of laboratory results Abnormal [facility] Lymphocytes/100 WBC (Bld) 36 % 24 - 43 % [facility] Lymphocytes/100 WBC (Bld) 3.47 % [facility] MCH (RBC) [Entitic mass] 34.0 pg High 25.2 - 33.5 pg [facility] MCHC (RBC) [Mass/Vol] 36.6 g/dL High 28.4 - 34.8 g/dL [facility] MCV (RBC) [Entitic vol] 93.0 fL 82.6 - 102.9 fL [facility] Monocytes/100 WBC (Bld) 6 % 3 - 12 % [facility] Monocytes/100 WBC (Bld) 0.62 % [facility] Neutrophils/100 WBC (Bld) 53 % 36 - 65 % [facility] Nucleated RBC/100 WBC (Bld) [Ratio] 0.0 % 0.0 per 100 WBC [facility] Platelet mean volume (Bld) [Entitic vol] 9.9 fL 8.1 - 13.5 fL [facility] Platelets (Bld) [#/Vol] 278 10*3/uL [facility] RBC (Bld) [#/Vol] 4.00 10*6/uL 3.95 - 5.1 1 m/uL [facility] Segmented neutrophils/100 WBC (Bld) 5.18 % [facility] WBC other (Bld) [#/Vol] 9.8 [facility] CBC with Diffon 05-02-2024 Abs. Basophil 0.09 k/uL Normal 0.00-0.20 [facility] Comment on above: Performed By: #### C YTCGP #### [address] [address] Wharf Tender Helper: John Mason MD Abs.Imm.Granulocyte <0.03 Normal 0.00-0.30 [facility] Comment on above: Performed By: #### C YTCGP #### [address] [address] Wharf Tender Helper: Jhon Mason MD Abs.Neutrophil (Seg) 5.18 k/uL Normal 1.50-8.10 [facility] Comment on above: Performed By: #### C YTCGP #### [address] [address] Wharf Tender Helper: John Mason MD Basophils/100 WBC (Bld) 1 % Normal 0-2 [facility] Comment on above: Performed By: #### C YTCGP #### [address] [address] Wharf Tender Helper: John Mason MD Eosinophils (Bld) [#/Vol] 0.39 10*3/uL Normal 0.00-0.44 [facility] Comment on above: Performed By: #### C YTCGP #### [address] [address] Wharf Tender Helper: John Mason MD Eosinophils/100 WBC (Bld) 4 % Normal 1-4 [facility] Comment on above: Performed By: #### C YTCGP #### [address] [address] Wharf Tender Helper: John Mason MD Erythrocyte distribution width (RBC) [Ratio] 11.7 % Low 11.8-14.4 [facility] Comment on above: Performed By: #### C YTCGP #### [address] [address] Wharf Tender Helper: John Mason MD Hematocrit (Bld) [Volume fraction] 37.2 % Normal 36.3-47.1 [facility] Comment on above: Performed By: #### C YTCGP #### [address] [address] Wharf Tender Helper: John Mason MD Hemoglobin (Bld) [Mass/Vol] 13.6 g/dL Normal 11.9-15.1 [facility] Comment on above: Performed By: #### C YTCGP #### [address] [address] Wharf Tender Helper: John Mason MD Immature granulocytes/100 WBC (Bld) 0 % Normal 0 [facility] Comment on above: Performed By: #### C YTCGP #### [address] [address] Wharf Tender Helper: John Mason MD Lymphocytes (Bld) [#/Vol] 3.47 10*3/uL Normal 1.10-3.70 [facility] Comment on above: Performed By: #### C YTCGP #### [address] [address] Wharf Tender Helper: John Mason MD Lymphocytes/100 WBC (Bld) 36 % Normal 24-43 [facility] Comment on above: Performed By: #### C YTCGP #### [address] [address] Wharf Tender Helper: John Mason MD MCH (RBC) [Entitic mass] 34.0 pg High 25.2-33.5 [facility] Comment on above: Performed By: #### C YTCGP #### [address] [address] Wharf Tender Helper: John Mason MD MCHC (RBC) [Mass/Vol] 36.6 g/dL High 28.4-34.8 [facility] Comment on above: Performed By: #### C YTCGP #### [address] [address] Wharf Tender Helper: John Mason MD MCV (RBC) [Entitic vol] 93.0 fL Normal 82.6-102.9 [facility] Comment on above: Performed By: #### C YTCGP #### [address] [address] Wharf Tender Helper: John Mason MD Monocytes (Bld) [#/Vol] 0.62 10*3/uL Normal 0.10-1.20 [facility] Comment on above: Performed By: #### C YTCGP #### [address] [address] Wharf Tender Helper: John Mason MD Monocytes/100 WBC (Bld) 6 % Normal 3-12 [facility] Comment on above: Performed By: #### C YTCGP #### [address] [address] Wharf Tender Helper: John Msaon MD Neutrophil (Seg) 53 % Normal 36-65 [facility] Comment on above: Performed By: #### C YTCGP #### [address] [address] Wharf Tender Helper: John Mason MD NRBC Automated 0.0 per 100 WBC Normal 0.0 [facility] Comment on above: Performed By: #### C YTCGP #### [address] [place] [address] Wharf Tender Helper: John Mason MD Platelet mean volume (Bld) [Entitic vol] 9.9 fL Normal 8.1-13.5 [facility] Comment on above: Performed By: #### C YTCGP #### [facility] [place] [address] Wharf Tender Helper: John Mason MD Platelets (Bld) [#/Vol] 278 10*3/uL Normal 138-453 [facility] Comment on above: Performed By: #### C YTCGP #### [address] [address] Wharf Tender Helper: John Mason MD RBC (Bld) [#/Vol] 4.00 10*6/uL Normal 3.95-5.11 [facility] Comment on above: Performed By: #### C YTCGP #### [address] [address] Wharf Tender Helper: John Mason MD WBC (Bld) [#/Vol] 9.8 10*3/uL Normal 3.5-11.3 [facility] Comment on above: Performed By: #### C YTCGP #### [address] [address] Wharf Tender Helper: John Mason MD Comp Metabolic Profon 2023 Albumin [Mass/Vol] 4.6 g/dL Normal 3.5-5.2 [facility] Comment on above: Performed By: #### C YTCGP #### [address] [address] Wharf Tender Helper: John Mason MD Albumin/Glob Ratio 2.0 Normal 1.0-2.5 [facility] Comment on above: Performed By: #### C YTCGP #### [facility] [employer] [address] [place] [address] Wharf Tender Helper: John Mason MD Alkaline Phos 55 U/L Normal 35-104 [facility] Comment on above: Performed By: #### C YTCGP #### [facility] [address] [place] [address] Wharf Tender Helper: John Mason MD ALT [Catalytic activity/Vol] 18 U/L Normal 10-35 [facility] Comment on above: Performed By: #### C YTCGP #### [facility] [address] [place] [address] Wharf Tender Helper: John Mason MD Anion gap [Moles/Vol] 10 mmol/L Normal 9-16 [facility] Comment on above: Performed By: #### C YTCGP #### [facility] [address] [place] [address] Wharf Tender Helper: John Mason MD AST [Catalytic activity/Vol] 22 U/L Normal 10-35 [facility] Comment on above: Performed By: #### C YTCGP #### [facility] [address] [place] [address] Wharf Tender Helper: John Mason MD Bilirubin [Mass/Vol] 0.3 mg/dL Normal 0.00-1.20 [facility] Comment on above: Performed By: #### C YTCGP #### [facility] [address] [place] [address] Wharf Tender Helper: John Mason MD BUN/CRE Ratio 13 Normal 9-20 [facility] Comment on above: Performed By: #### C YTCGP #### [facility] [address] [place] [address] Wharf Tender Helper: John Mason MD Calcium [Mass/Vol] 9.1 mg/dL Normal 8.6-10.4 [facility] Comment on above: Performed By: #### C YTCGP #### [facility] [address] [place] [address] Wharf Tender Helper: John Mason MD Chloride [Moles/Vol] 104 mmol/L Normal 98-107 [facility] Comment on above: Performed By: #### C YTCGP #### [address] [place] [address] Wharf Tender Helper: John Mason MD CO2 [Moles/Vol] 22 mmol/L Normal 20-31 [facility] Comment on above: Performed By: #### C YTCGP #### [address] [address] Wharf Tender Helper: John Mason MD Creatinine [Mass/Vol] 0.8 mg/dL Normal 0.50-0.90 [facility] Comment on above: Performed By: #### C YTCGP #### [address] [address] Wharf Tender Helper: John Mason MD GFR/1.73 sq M.predicted among non-blacks MDRD (S/P/Bld) [Vol rate/Area] mL/min/{1.73_m2} Normal >60 [facility] Comment on above: Result Comment: These results [...] affects renal tubular secretion. Performed By: #### C YTCGP #### [address] [place] [address] Wharf Tender Helper: John Mason MD Glucose [Mass/Vol] 89 mg/dL Normal 74-99 [facility] Comment on above: Performed By: #### C YTCGP #### [address] [address] Wharf Tender Helper: John Mason MD Potassium [Moles/Vol] 3.7 mmol/L Normal 3.7-5.3 [facility] Comment on above: Result Comment: Spec imen hemolysis has exceeded the interference as defined by Christiano. Value may be falsely increased. Suggest recollection if clinically indicated. Performed By: #### C YTCGP #### [facility] [address] [place] [address] Wharf Tender Helper: John Mason MD Protein [Mass/Vol] 6.9 g/dL Normal 6.6-8.7 [facility] Comment on above: Performed By: #### C YTCGP #### [facility] [address] [place] [address] Wharf Tender Helper: John Mason MD Sodium [Moles/Vol] 136 mmol/L Normal 136-145 [facility] Comment on above: Performed By: #### C YTCGP #### [facility] [place] [address] Wharf Tender Helper: John Mason MD Urea nitrogen [Mass/Vol] 10 mg/dL Normal 6-20 [facility] Comment on above: Performed By: #### C YTCGP #### [facility] [address] [place] [address] Wharf Tender Helper: John Mason MD [facility] Metabolic [facility] 05-02-2024 Albumin [Mass/Vol] 4.6 g/dL 3.5 - 5.2 g/dL [facility] Albumin/Globulin [Mass ratio] 2.0 {ratio} 1.0 - 2.5 [facility] ALP [Catalytic activity/Vol] 55 U/L 35 - 104 U/L [facility] ALT [Catalytic activity/Vol] 18 U/L 10 - 35 U/L [facility] Anion gap [Moles/Vol] 10 mmol/L 9 - 16 mmol/L [facility] AST [Catalytic activity/Vol] 22 U/L 10 - 35 U/L [facility] Bilirubin [Mass/Vol] 0.3 mg/dL 0.00 - 1.20 mg/dL [facility] Calcium [Mass/Vol] 9.1 mg/dL 8.6 - 10. 4 mg/dL [facility] Chloride [Moles/Vol] 104 mmol/L 98 - 10 7 mmol/L [facility] CO2 [Moles/Vol] 22 mmol/L 20 - 31 mmol/L [facility] Creatinine [Mass/Vol] 0.8 mg/dL 0.50 - 0.90 mg/dL [facility] Est, Hansel Lopez Rate - PINF [facility] Comment on above: These results are not [...] [Mass/Vol] 89 mg/dL 74 - 99 mg/dL [facility] Potassium [Moles/Vol] 3.7 mmol/L 3.7 - 5.3 mmol/L [facility] Comment on above: Specimen hemolysis h as exceeded the interference as defined by Christiano. Value may be falsely increased. Suggest recollection if clinically indicated. Protein [Mass/Vol] 6.9 g/dL 6.6 - 8.7 g/dL [facility] Sodium [Moles/Vol] 136 mmol/L 136 - 145 mmol/L [facility] Urea nitrogen [Mass/Vol] 10 mg/dL 6 - 20 mg/dL [facility] Urea nitrogen/Creatinine [Mass ratio] 13 mg/mg 9 - 20 [facility] Lipaseon 05-02-2024 Lipase [Catalytic activity/Vol] 22 U/L 13 - 60 U/L [facility] Lipase [Catalytic activity/Vol] 22 U/L Normal 13-60 [facility] Comment on above: Performed By: #### C [facility] #### [employer] [address] [place] [address] Wharf Tender Helper: John Mason MD No Panel Informationon 05-02 [facility] Troponinon 05-02-2024 Troponin I.cardiac High sensitivity method [Mass/Vol] ng/L 0 - 14 ng/L [facility] Comment on above: High Sensitivity Tro ponin values cannot be compared with other Troponin methodologies. Troponin, High Sens <6 Normal 0-14 [facility] Comment on above: Result Comment: High Sensitivity Troponin values cannot be compared with other Troponin methodologies. Performed By: #### C [facility] #### [facility] [address] [id number] Wharf Tender Helper: John Mason MD Portable XR Chest AP single viewon 05-01-2024 No acute cardiopulmonary abnormality. [facility] EXAMINATION: ONE XRAY VIEW OF THE CHEST 05/01/2024 10:16 pm COMPARISON: 03/18/2024 HISTORY: ORDERING SYSTEM PROVIDED HISTORY: CP TECHNOLOGIST PROVIDED HISTORY: CP FINDINGS: The heart is normal in size. There is no focal pulmonary consolidation. There is no pleural effusion or pneumothorax. The visualized bones are unremarkable. [facility] Saran Naik MD - 05/01/2024 EXAMINATION: ONE XRAY VIEW OF THE CHEST 05/01/2024 10:16 pm COMPARISON: 03/18/2024 HISTORY: ORDERING SYSTEM PROVIDED HISTORY: CP TECHNOLOGIST PROVIDED HISTORY: CP FINDINGS: The heart is normal in size. There is no focal pulmonary consolidation. There is no pleural effusion or pneumothorax. The visualized bones are unremarkable. IMPRESSION: No acute cardiopulmonary abnormality. [facility] Radiology Study observation (narrative) [facility] Portable XR Chest AP single viewOrdered By: Saran Naik on 05-01-2024 [facility] Work Phone: XR CHEST PORTABLEon 05-01-20 XR [...] Saran Naik MD 05/01/24 Final result Normal [facility] CMPon 04-16-2024 Albumin [Mass/Vol] 4.3 g/dL 3.5 - 5.2 g/dL [facility] Albumin/Globulin [Mass ratio] 2.0 {ratio} 1.0 - 2.5 [facility] ALP [Catalytic activity/Vol] 53 U/L 35 - 104 U/L [facility] ALT [Catalytic activity/Vol] 15 U/L 10 - 35 U/L [facility] Anion gap [Moles/Vol] 9 mmol/L 9 - 16 mmol/L [facility] AST [Catalytic activity/Vol] 20 U/L 10 - 35 U/L [facility] Bilirubin [Mass/Vol] 0.3 mg/dL 0.00 - 1.20 mg/dL [facility] Calcium [Mass/Vol] 9.2 mg/dL 8.6 - 10. 4 mg/dL [facility] Chloride [Moles/Vol] 106 mmol/L 98 - 10 7 mmol/L [facility] CO2 [Moles/Vol] 23 mmol/L 20 - 31 mmol/L [facility] Creatinine [Mass/Vol] 0.7 mg/dL 0.50 - 0.90 mg/dL [facility] Est, Hansel Lopez Rate - PINF [facility] Comment on above: These results are not [...] [Mass/Vol] 89 mg/dL 74 - 99 mg/dL [facility] Interpretation and review of laboratory results Abnormal [facility] Potassium [Moles/Vol] 3.7 mmol/L 3.7 - 5.3 mmol/L [facility] Protein [Mass/Vol] 6.4 g/dL Low 6.6 - 8.7 g/dL [facility] Sodium [Moles/Vol] 138 mmol/L 136 - 145 mmol/L [facility] Urea nitrogen [Mass/Vol] 10 mg/dL 6 - 20 mg/dL [facility] Urea nitrogen/Creatinine [Mass ratio] 14 mg/mg 9 - 20 [facility] Comp Metabolic Profon 2023 Albumin [Mass/Vol] 4.3 g/dL Normal 3.5-5.2 [facility] Comment on above: Performed By: #### U AX, UMICAO #### [facility] [address] [place] [address] Wharf Tender Helper: Calin Tapia MD Albumin/Glob Ratio 2.0 Normal 1.0-2.5 [facility] Comment on above: Performed By: #### U AX UMICAO #### [facility] [address] [place], [place] [id number] Wharf Tender Helper: Calin Tapia MD Alkaline Phos 53 U/L Normal 35-104 [facility] Comment on above: Performed By: #### U AX UMICAO #### [facility] [address] [place] [address] Wharf Tender Helper: Calin Tapia MD ALT [Catalytic activity/Vol] 15 U/L Normal 10-35 [facility] Comment on above: Performed By: #### U AX, UMICAO #### [facility] [address] [place], [place] [phone] Wharf Tender Helper: Calin Tapia MD Anion gap [Moles/Vol] 9 mmol/L Normal 9-16 [facility] Comment on above: Performed By: #### U AX UMICAO #### [facility] [address] [place] [address] Wharf Tender Helper: Calin Tapia MD AST [Catalytic activity/Vol] 20 U/L Normal 10-35 [facility] Comment on above: Performed By: #### U AX, UMICAO #### [facility] [address] [place], [place] [phone] Wharf Tender Helper: Calin Tapia MD Bilirubin [Mass/Vol] 0.3 mg/dL Normal 0.00-1.20 [facility] Comment on above: Performed By: #### U AX, UMICAO #### [facility] [address] [place], [place] [phone] Wharf Tender Helper: Calin Tapia MD BUN/CRE Ratio 14 Normal 9-20 [facility] Comment on above: Performed By: #### U AX, UMICAO #### [facility] [address] [place], [place] [phone] Wharf Tender Helper: Calin Tapia MD Calcium [Mass/Vol] 9.2 mg/dL Normal 8.6-10.4 [facility] Comment on above: Performed By: #### U AX, UMICAO #### [facility] [address] [place], [place] [phone] Wharf Tender Helper: Calin Tapia MD Chloride [Moles/Vol] 106 mmol/L Normal 98-107 [facility] Comment on above: Performed By: #### U AX, UMICAO #### [facility] [address] [place], [place] [phone] Wharf Tender Helper: Calin Tapia MD CO2 [Moles/Vol] 23 mmol/L Normal 20-31 [facility] Comment on above: Performed By: #### U AX, UMICAO #### [facility] [address] [place], [place] [phone] Wharf Tender Helper: Calin Tapia MD Creatinine [Mass/Vol] 0.7 mg/dL Normal 0.50-0.90 [facility] Comment on above: Performed By: #### U AX, UMICAO #### [facility] [address] [place] [address] Wharf Tender Helper: Calin Tapia MD GFR/1.73 sq M.predicted among non-blacks MDRD (S/P/Bld) [Vol rate/Area] mL/min/{1.73_m2} Normal >60 [facility] Comment on above: Result Comment: These results [...] renal tubular secretion. Performed By: #### U AX, UMICAO #### [facility] [address] [place] [address] [place] [address] Wharf Tender Helper: Calin Tapia MD Glucose [Mass/Vol] 89 mg/dL Normal 74-99 [facility] Comment on above: Performed By: #### U AX UMICAO #### [facility] [address] [place] [address] [address], [place] [phone] Wharf Tender Helper: Calin Tapia MD Potassium [Moles/Vol] 3.7 mmol/L Normal 3.7-5.3 [facility] Comment on above: Performed By: #### U AX, UMICAO #### [address] [place], [place] [phone] Wharf Tender Helper: Calin Tapia MD Protein [Mass/Vol] 6.4 g/dL Low 6.6-8.7 [facility] Comment on above: Performed By: #### U AX, UMICAO #### [facility] [address] [place] [address] [place] [address] Wharf Tender Helper: Calin Tapia MD Sodium [Moles/Vol] 138 mmol/L Normal 136-145 [facility] Comment on above: Performed By: #### U AX, UMICAO #### [facility] [address] [place] [address] Wharf Tender Helper: Calin Tapia MD Urea nitrogen [Mass/Vol] 10 mg/dL Normal 6-20 [facility] Comment on above: Performed By: #### U MAVIS CARDOSO #### [facility] [address] [place] [address] Wharf Tender Helper: Calin Tapia MD Lactic Acidon 04-16-2024 Lactate (BldV) [Moles/Vol] 0.6 mmol/L 0.5 - 2.2 mmol/L [facility] Lactate [Moles/Vol] 0.6 mmol/L Normal 0.5-2.2 [facility] Comment on above: Performed By: #### C YTCGP #### [facility] [address] [place] [address] Wharf Tender Helper: John Mason MD Lipaseon 04-16-2024 Lipase [Catalytic activity/Vol] 23 U/L 13 - 60 U/L [facility] Lipase [Catalytic activity/Vol] 23 U/L Normal 13-60 [facility] Comment on above: Performed By: #### MAVIS PANIAGUA #### [facility] [address] [place] [address] Wharf Tender Helper: Calin Tapia MD Microscopic Urinalysison Bacteria LM Ql (Urine sed) 1+ Abnormal None [facility] Epithelial cells LM.HPF (Urine sed) [#/Area] 0 TO 2 [facility] Interpretation and review of laboratory results Abnormal [facility] Mucus Ql (Urine sed) 1+ Abnormal None [facility] RBC LM.HPF (Urine sed) [#/Area] None [facility] WBC LM.HPF (Urine sed) [#/Area] 2 TO 5 [facility] No Panel Informationon 04-16 [facility] UA w/Reflex Cultureon 2023 Bilirubin, SemiQt,Ur Negative Normal NEG [facility] Comment on above: Performed By: #### C ELPX #### [address] [address] Wharf Tender Helper: John Mason MD #### CRP, CP, CDP #### [address] [place] [address] Wharf Tender Helper: Calin Tapia MD Blood, Urine Negative Normal NEG [facility] Comment on above: Performed By: #### C ELPX #### [address] [address] Wharf Tender Helper: John Mason MD #### CRP, CP, CDP #### [address] [place], [place] [id number] Wharf Tender Helper: Calin Tapia MD Clarity (U) Clear Normal CLEAR [facility] Comment on above: Performed By: #### C ELPX #### [address] [address] Wharf Tender Helper: John Mason MD #### CRP, CP, CDP #### [address] [place], [place] [phone] Wharf Tender Helper: Calin Tapia MD Color (U) Yellow Normal YEL [facility] Comment on above: Performed By: #### C ELPX #### [address] [address] Wharf Tender Helper: John Mason MD #### CRP, CP, CDP #### [address] [place], [place] [phone] Wharf Tender Helper: Calin Tapia MD Glucose Ql (U) Negative Normal NEG [facility] Comment on above: Performed By: #### C ELPX #### [address] [address] Wharf Tender Helper: John Mason MD #### CRP, CP, CDP #### [address] [place], [place] [phone] Wharf Tender Helper: Calin Tapia MD Ketones Ql (U) Negative Normal NEG [facility] Comment on above: Performed By: #### C ELPX #### [address] [address] Wharf Tender Helper: John Mason MD #### CRP, CP, CDP #### [address] [place], [place] [phone] Wharf Tender Helper: Calin Tapia MD Leukocyte esterase Test strip Ql (U) Negative Normal NEG [facility] Comment on above: Performed By: #### C ELPX #### [address] [address] Wharf Tender Helper: John Mason MD #### CRP, CP, CDP #### [address] [place] [phone] Wharf Tender Helper: Calin Tapia MD Nitrite,Ur Negative Normal NEG [facility] Comment on above: Performed By: #### C ELPX #### [address] [address] Wharf Tender Helper: John Mason MD #### CRP, CP, CDP #### [address] [place] [phone] Wharf Tender Helper: Calin Tapia MD PH,Ur 6.0 Normal 5.0-9.0 [facility] Comment on above: Performed By: #### C ELPX #### [address] [address] Wharf Tender Helper: John Mason MD #### CRP, CP, CDP #### [address] [place], [place] [id number] Wharf Tender Helper: Calin Tapia MD Protein Ql (U) Negative Normal NEG [facility] Comment on above: Performed By: #### C ELPX #### [facility] [address] [place] [address] Wharf Tender Helper: John Mason MD #### CRP, CP, CDP #### [facility] [address] [place], [place] [phone] Wharf Tender Helper: Calin Tapia MD Spec. [place],Ur 1.025 High 1.010-1.020 [facility] Comment on above: Performed By: #### C ELPX #### [address] [place] [address] Wharf Tender Helper: John Mason MD #### CRP, CP, CDP #### [facility] [address] [place] [address] [address] [place], [place] [phone] Wharf Tender Helper: Calin Tapia MD Urobilinogen,Ur Normal Normal 0.0-1.0 [facility] Comment on above: Performed By: #### C ELPX #### [address] [place] [address] Wharf Tender Helper: John Mason MD #### DAVID, CP, CDP #### [facility] [address] [place] [address] [address] [place], [place] [phone] Wharf Tender Helper: Calin Tapia MD Urinalysis with Reflex to Cu ltureon 04-16-2024 Bilirubin Ql (U) Negative NEGATIVE [facility] Clarity (U) Clear Clear [facility] Color (U) Yellow Yellow [facility] Glucose Test strip (U) [Mass/Vol] Negative NEGATIVE mg/dL [facility] Hemoglobin Auto test strip Ql (U) Negative NEGATIVE [facility] Interpretation and review of laboratory results Abnormal [facility] Ketones (U) [Mass/Vol] Negative NEGATIVE mg/dL [facility] Leukocyte esterase Test strip Ql (U) Negative NEGATIVE [facility] Nitrite Ql (U) Negative NEGATIVE [facility] pH (U) 6.0 [pH] 5.0 - 9.0 [facility] Protein (U) [Mass/Vol] Negative NEGATIVE mg/dL [facility] Specific gravity (U) [Rel density] 1.025 High 1.010 - 1.020 [facility] Urobilinogen Qn (U) Normal 0.0 - 1. 0 EU/dL [facility] Urinalysis,Microon 4 Bacteria 1+ Abnormal NONE [facility] Comment on above: Performed By: #### C ELPX #### [address] [address] Wharf Tender Helper: John Mason MD #### CRP, CP, CDP #### [facility] [address] [place] [address] [place] [address] Wharf Tender Helper: Calin Tapia MD Epithelial cells LM Ql (Urine sed) 0 TO 2 Normal 0-25 [facility] Comment on above: Performed By: #### C ELPX #### [address] [address] Wharf Tender Helper: John Mason MD #### CRP, CP, CDP #### [address] [place] [address] Wharf Tender Helper: Calin Tapia MD Mucus Strands 1+ Abnormal NONE [facility] Comment on above: Performed By: #### C ELPX #### [address] [address] Wharf Tender Helper: John Mason MD #### CRP, CP, CDP #### [facility] [address] [place] [address] Wharf Tender Helper: Calin Tapia MD Urine RBC's None Normal 0-2 [facility] Comment on above: Performed By: #### C ELPX #### [address] [address] Wharf Tender Helper: John Mason MD #### CRP, CP, CDP #### [facility] [address] [place] [address] Wharf Tender Helper: Calin Tapia MD Urine WBC's 2 TO 5 Normal 0-5 [facility] Comment on above: Performed By: #### C ELPX #### [facility] [address] [place] [address] Wharf Tender Helper: John Mason MD #### CRP, CP, CDP #### [facility] [address] [place] [address] Wharf Tender Helper: Calin Tapia MD CBC with Diffon 04-15-2024 Basophils (Bld) [#/Vol] 0.07 10*3/uL [facility] Basophils/100 WBC (Bld) 1 % 0 - 2 % [facility] Eosinophils (Bld) [#/Vol] 0.39 10*3/uL [facility] Eosinophils/100 WBC (Bld) 5 % High 1 - 4 % [facility] Erythrocyte distribution width (RBC) [Ratio] 12.0 % 11.8 - 14.4 % [facility] Hematocrit (Bld) [Volume fraction] 35.4 % Low 36.3 - 47.1 % [facility] Hemoglobin (Bld) [Mass/Vol] 12.7 g/dL 11.9 - 15.1 g/dL [facility] Immature granulocytes (Bld) [#/Vol] [facility] Immature granulocytes/100 WBC (Bld) 0 % 0 [facility] Interpretation and review of laboratory results Abnormal [facility] Lymphocytes/100 WBC (Bld) 37 % 24 - 43 % [facility] Lymphocytes/100 WBC (Bld) 2.69 % [facility] MCH (RBC) [Entitic mass] 33.9 pg High 25.2 - 33.5 pg [facility] MCHC (RBC) [Mass/Vol] 35.9 g/dL High 28.4 - 34.8 g/dL [facility] MCV (RBC) [Entitic vol] 94.4 fL 82.6 - 102.9 fL [facility] Monocytes/100 WBC (Bld) 6 % 3 - 12 % [facility] Monocytes/100 WBC (Bld) 0.44 % [facility] Neutrophils/100 WBC (Bld) 51 % 36 - 65 % [facility] Nucleated RBC/100 WBC (Bld) [Ratio] 0.0 % 0.0 per 100 WBC [facility] Platelet mean volume (Bld) [Entitic vol] 9.2 fL 8.1 - 13.5 fL [facility] Platelets (Bld) [#/Vol] 245 10*3/uL [facility] RBC (Bld) [#/Vol] 3.75 10*6/uL Low 3.95 - 5.1 1 m/uL [facility] Segmented neutrophils/100 WBC (Bld) 3.69 % [facility] WBC other (Bld) [#/Vol] 7.3 [facility] Abs. Basophil 0.07 k/uL Normal 0.00-0.20 [facility] Comment on above: Performed By: #### C YTCGP #### [employer] [address] [place] [address] Wharf Tender Helper: John Mason MD Abs.Imm.Granulocyte <0.03 Normal 0.00-0.30 [facility] Comment on above: Performed By: #### C YTCGP #### [facility] [place] [address] Wharf Tender Helper: John Mason MD Abs.Neutrophil (Seg) 3.69 k/uL Normal 1.50-8.10 [facility] Comment on above: Performed By: #### C YTCGP #### [employer] [address] [place] [address] Wharf Tender Helper: John Mason MD Basophils/100 WBC (Bld) 1 % Normal 0-2 [facility] Comment on above: Performed By: #### C YTCGP #### [address] [address] Wharf Tender Helper: John Mason MD Eosinophils (Bld) [#/Vol] 0.39 10*3/uL Normal 0.00-0.44 [facility] Comment on above: Performed By: #### C YTCGP #### [address] [address] Wharf Tender Helper: John Mason MD Eosinophils/100 WBC (Bld) 5 % High 1-4 [facility] Comment on above: Performed By: #### C YTCGP #### [address] [address] Wharf Tender Helper: John Mason MD Erythrocyte distribution width (RBC) [Ratio] 12.0 % Normal 11.8-14.4 [facility] Comment on above: Performed By: #### C YTCGP #### [address] [address] Wharf Tender Helper: John Mason MD Hematocrit (Bld) [Volume fraction] 35.4 % Low 36.3-47.1 [facility] Comment on above: Performed By: #### C YTCGP #### [address] [address] Wharf Tender Helper: John Mason MD Hemoglobin (Bld) [Mass/Vol] 12.7 g/dL Normal 11.9-15.1 [facility] Comment on above: Performed By: #### C YTCGP #### [address] [address] Wharf Tender Helper: John Mason MD Immature granulocytes/100 WBC (Bld) 0 % Normal 0 [facility] Comment on above: Performed By: #### C YTCGP #### [address] [address] Wharf Tender Helper: John Mason MD Lymphocytes (Bld) [#/Vol] 2.69 10*3/uL Normal 1.10-3.70 [facility] Comment on above: Performed By: #### C YTCGP #### [address] [address] Wharf Tender Helper: John Mason MD Lymphocytes/100 WBC (Bld) 37 % Normal 24-43 [facility] Comment on above: Performed By: #### C YTCGP #### [address] [address] Wharf Tender Helper: John Mason MD MCH (RBC) [Entitic mass] 33.9 pg High 25.2-33.5 [facility] Comment on above: Performed By: #### C YTCGP #### [place] [address] Wharf Tender Helper: John Mason MD MCHC (RBC) [Mass/Vol] 35.9 g/dL High 28.4-34.8 [facility] Comment on above: Performed By: #### C YTCGP #### [address] [address] Wharf Tender Helper: John Mason MD MCV (RBC) [Entitic vol] 94.4 fL Normal 82.6-102.9 [facility] Comment on above: Performed By: #### C YTCGP #### [address] [address] Wharf Tender Helper: John Mason MD Monocytes (Bld) [#/Vol] 0.44 10*3/uL Normal 0.10-1.20 [facility] Comment on above: Performed By: #### C YTCGP #### [address] [address] Wharf Tender Helper: John Mason MD Monocytes/100 WBC (Bld) 6 % Normal 3-12 [facility] Comment on above: Performed By: #### C YTCGP #### [address] [place] [address] Wharf Tender Helper: John Mason MD Neutrophil (Seg) 51 % Normal 36-65 [facility] Comment on above: Performed By: #### C YTCGP #### [address] [address] Wharf Tender Helper: John Mason MD NRBC Automated 0.0 per 100 WBC Normal 0.0 [facility] Comment on above: Performed By: #### C YTCGP #### [address] [address] Wharf Tender Helper: John Mason MD Platelet mean volume (Bld) [Entitic vol] 9.2 fL Normal 8.1-13.5 [facility] Comment on above: Performed By: #### C YTCGP #### [address] [address] Wharf Tender Helper: John Mason MD Platelets (Bld) [#/Vol] 245 10*3/uL Normal 138-453 [facility] Comment on above: Performed By: #### C YTCGP #### [address] [address] Wharf Tender Helper: John Mason MD RBC (Bld) [#/Vol] 3.75 10*6/uL Low 3.95-5.11 [facility] Comment on above: Performed By: #### C YTCGP #### [address] [address] Wharf Tender Helper: John Mason MD WBC (Bld) [#/Vol] 7.3 10*3/uL Normal 3.5-11.3 [facility] Comment on above: Performed By: #### C YTCGP #### [address] [address] Wharf Tender Helper: John Mason MD HCG, ,Urineon 04-15 Beta HCG ( test) Ql (U) Negative Normal NEG [facility] Comment on above: Result Comment: Spec imens with hCG levels near the threshold of the test (25 mIU/mL) may give a negative or indeterminate result. In such cases, another test should be performed with a new specimen in 48-72 hours. If early is suspected clinically in this setting, correlation with quantitative serum b-hCG level is suggested. [facility] has confirmed the use of plasma for this test. This has not been cleared or approved by the U.S. Food and Drug Administration. The FDA has determined that such clearance is not necessary. Performed By: #### C ELPX #### [facility] [address] [place] [address] Wharf Tender Helper: John Mason MD #### CRP, CP, CDP #### [facility] [address] [place] [address] Wharf Tender Helper: Calin Tapia MD , Urineon 4 HCG ( test) Ql (U) Negative NEGATIVE [facility] Comment on above: Specimens with hCG l evels near the threshold of the test (25 mIU/mL) may give a negative or indeterminate result. In such cases, another test should be performed with a new specimen in 48-72 hours. If early is suspected clinically in this setting, correlation with quantitative serum b-hCG level is suggested. [facility] has confirmed the use of plasma for this test. This has not been cleared or approved by the U.S. Food and Drug Administration. The FDA has determined that such clearance is not necessary. [facility] Cult,Urineon 03-30-2024 Cult,Urine Specimen Description .CLEAN CATCH URINE Special Requests Site: Urine Culture NO SIGNIFICANT GROWTH Report Status FINAL 03/30/2024 Normal [facility] Comment on above: Performed By: #### U AX, UMICAO #### [facility] [address] [place] [address] Wharf Tender Helper: Calin Tapia MD Urinalysis w/ Microon 2023 Bacteria TRACE Abnormal NONE [facility] Comment on above: Performed By: #### U AX, UMICAO #### [facility] [address] [place], [place] [address]83 Wharf Tender Helper: Calin Tapia MD Bilirubin, SemiQt,Ur Negative Normal NEG [facility] Comment on above: Performed By: #### U AX, UMICAO #### [facility] [address] [place], [place] [address]83 Wharf Tender Helper: Calin Tapia MD Blood, Urine Negative Normal NEG [facility] Comment on above: Performed By: #### U AX, UMICAO #### [facility] [address] [place], [place] [address] Wharf Tender Helper: Calin Tapia MD Clarity (U) Clear Normal CLEAR [facility] Comment on above: Performed By: #### U AX, UMICAO #### [facility] [address] [place], [place] [address]83 Wharf Tender Helper: Calin Tapia MD Color (U) Yellow Normal YEL [facility] Comment on above: Performed By: #### U AX, UMICAO #### [facility] [address] [place] [address] [address] [place], [place] [id number] Wharf Tender Helper: Calin Tapia MD Epithelial cells LM Ql (Urine sed) 0 TO 2 Normal 0-25 [facility] Comment on above: Performed By: #### U AX, UMICAO #### [facility] [address] [place], [place] [address] Wharf Tender Helper: Calin Tapia MD Glucose Ql (U) Negative Normal NEG [facility] Comment on above: Performed By: #### U AX, UMICAO #### [facility] [address] [place], [place] [address] Wharf Tender Helper: Calin Tapia MD Ketones Ql (U) Negative Normal NEG [facility] Comment on above: Performed By: #### U AX, UMICAO #### [facility] [address] [place], [place] [address]783 Wharf Tender Helper: Calin Tapia MD Leukocyte esterase Test strip Ql (U) Negative Normal NEG [facility] Comment on above: Performed By: #### U AX, UMICAO #### [address] [place] [address] Wharf Tender Helper: Calin Tapia MD Nitrite,Ur Negative Normal NEG [facility] Comment on above: Performed By: #### U AX, UMICAO #### [address] [place] [address] Wharf Tender Helper: Calin Tapia MD PH,Ur 6.0 Normal 5.0-9.0 [facility] Comment on above: Performed By: #### U AX, UMICAO #### [address] [place] [address] Wharf Tender Helper: Calin Tapia MD Protein Ql (U) Negative Normal NEG [facility] Comment on above: Performed By: #### U AX, UMICAO #### [address] [place], [place] [id number] Wharf Tender Helper: Calin Tapia MD Spec. [place],Ur 1.010 Normal 1.010-1.020 [facility] Comment on above: Performed By: #### U AX, UMICAO #### [facility] [address] [place] [address] [place] [address] Wharf Tender Helper: Calin Tapia MD Urine RBC's None Normal 0-2 [facility] Comment on above: Performed By: #### U AX, UMICAO #### [address] [place] [address] Wharf Tender Helper: Calin Tapia MD Urine WBC's None Normal 0-5 [facility] Comment on above: Performed By: #### U AX, UMICAO #### [facility] [address] [place] [address] Wharf Tender Helper: Calin Tapia MD Urobilinogen,Ur Normal Normal 0.0-1.0 [facility] Comment on above: Performed By: #### U AX, UMICAO #### [facility] [address] [place] [address] Wharf Tender Helper: Calin Tapia MD Urinalysis with Microscopico n 03-29-2024 Bacteria LM Ql (Urine sed) TRACE Abnormal None [facility] Bilirubin Ql (U) Negative NEGATIVE [facility] Clarity (U) Clear Clear [facility] Color (U) Yellow Yellow [facility] Epithelial cells LM.HPF (Urine sed) [#/Area] 0 TO 2 [facility] Glucose Test strip (U) [Mass/Vol] Negative NEGATIVE mg/dL [facility] Hemoglobin Auto test strip Ql (U) Negative NEGATIVE [facility] Interpretation and review of laboratory results Abnormal [facility] Ketones (U) [Mass/Vol] Negative NEGATIVE mg/dL [facility] Leukocyte esterase Test strip Ql (U) Negative NEGATIVE [facility] Nitrite Ql (U) Negative NEGATIVE [facility] pH (U) 6.0 [pH] 5.0 - 9.0 [facility] Protein (U) [Mass/Vol] Negative NEGATIVE mg/dL [facility] RBC LM.HPF (Urine sed) [#/Area] None [facility] Specific gravity (U) [Rel density] 1.010 1.010 - 1.020 [facility] Urobilinogen Qn (U) Normal 0.0 - 1. 0 EU/dL [facility] WBC LM.HPF (Urine sed) [#/Area] None [facility] CBC with Diffon 03-18-2024 Abs. Basophil 0.06 k/uL Normal 0.00-0.20 [facility] Comment on above: Performed By: #### C ELPX #### [address] [address] Wharf Tender Helper: John Mason MD #### CRP, CP, CDP #### [address] [place], [place] [id number] Wharf Tender Helper: Calin Tapia MD Abs.Imm.Granulocyte <0.03 Normal 0.00-0.30 [facility] Comment on above: Performed By: #### C ELPX #### [address] [address] Wharf Tender Helper: John Mason MD #### CRP, CP, CDP #### [address] [place], [place] [id number] Wharf Tender Helper: Calin Tapia MD Abs.Neutrophil (Seg) 3.94 k/uL Normal 1.50-8.10 [facility] Comment on above: Performed By: #### C ELPX #### [address] [address] Wharf Tender Helper: John Mason MD #### CRP, CP, CDP #### [address] [place], [place] [id number] Wharf Tender Helper: Calin Tapia MD Basophils/100 WBC (Bld) 1 % Normal 0-2 [facility] Comment on above: Performed By: #### C ELPX #### [address] [address] Wharf Tender Helper: John Mason MD #### CRP, CP, CDP #### [address] [place], [place] [id number] Wharf Tender Helper: Calin Tapia MD Eosinophils (Bld) [#/Vol] 0.22 10*3/uL Normal 0.00-0.44 [facility] Comment on above: Performed By: #### C ELPX #### [address] [place] [address] Wharf Tender Helper: John Mason MD #### CRP, CP, CDP #### [address] [place], [place] [address]83 Wharf Tender Helper: Calin Tapia MD Eosinophils/100 WBC (Bld) 4 % Normal 1-4 [facility] Comment on above: Performed By: #### C ELPX #### [address] [address] Wharf Tender Helper: John Mason MD #### CRP, CP, CDP #### [address] [place] [address] Wharf Tender Helper: Calin Tapia MD Erythrocyte distribution width (RBC) [Ratio] 11.9 % Normal 11.8-14.4 [facility] Comment on above: Performed By: #### C ELPX #### [address] [address] Wharf Tender Helper: John Mason MD #### CRP, CP, CDP #### [address] [place], [place] [address] Wharf Tender Helper: Calin Tapia MD Hematocrit (Bld) [Volume fraction] 40.1 % Normal 36.3-47.1 [facility] Comment on above: Performed By: #### C ELPX #### [address] [address] Wharf Tender Helper: John Mason MD #### CRP, CP, CDP #### [address] [place] [address] Wharf Tender Helper: Calin Tapia MD Hemoglobin (Bld) [Mass/Vol] 14.4 g/dL Normal 11.9-15.1 [facility] Comment on above: Performed By: #### C ELPX #### [address] [address] [place] [address] Wharf Tender Helper: John Mason MD #### CRP CP, CDP #### [facility] [address] [place], [place] [id number] Wharf Tender Helper: Calin Tapia MD Immature granulocytes/100 WBC (Bld) 0 % Normal 0 [facility] Comment on above: Performed By: #### C ELPX #### [address] [address] Wharf Tender Helper: John Mason MD #### CRP, CP, CDP #### [facility] [address] [place], [place] [address] Wharf Tender Helper: Calin Tapia MD Lymphocytes (Bld) [#/Vol] 1.29 10*3/uL Normal 1.10-3.70 [facility] Comment on above: Performed By: #### C ELPX #### [address] [address] Wharf Tender Helper: John Mason MD #### DAVID CP, CDP #### [facility] [address] [place], [place] [address] Wharf Tender Helper: Calin Tapia MD Lymphocytes/100 WBC (Bld) 22 % Low 24-43 [facility] Comment on above: Performed By: #### C ELPX #### [address] [address] Wharf Tender Helper: John Mason MD #### CRP, CP, CDP #### [facility] [address] [place] [address] Wharf Tender Helper: Calin Tapia MD MCH (RBC) [Entitic mass] 33.6 pg High 25.2-33.5 [facility] Comment on above: Performed By: #### C ELPX #### [address] [address] Wharf Tender Helper: John Mason MD #### CRP, CP, CDP #### [address] [place] [id number] Wharf Tender Helper: Calin Tapia MD MCHC (RBC) [Mass/Vol] 35.9 g/dL High 28.4-34.8 [facility] Comment on above: Performed By: #### C ELPX #### [address] [address] Wharf Tender Helper: John Mason MD #### CRP, CP, CDP #### [address] [place] [id number] Wharf Tender Helper: Calin Tapia MD MCV (RBC) [Entitic vol] 93.7 fL Normal 82.6-102.9 [facility] Comment on above: Performed By: #### C ELPX #### [address] [address] Wharf Tender Helper: John Mason MD #### CRP, CP, CDP #### [address] [place] [id number] Wharf Tender Helper: Calin Tapia MD Monocytes (Bld) [#/Vol] 0.41 10*3/uL Normal 0.10-1.20 [facility] Comment on above: Performed By: #### C ELPX #### [address] [address] Wharf Tender Helper: John Mason MD #### CRP, CP, CDP #### [address] [place] [address] Wharf Tender Helper: Calin Tapia MD Monocytes/100 WBC (Bld) 7 % Normal 3-12 [facility] Comment on above: Performed By: #### C ELPX #### [address] [address] Wharf Tender Helper: John Mason MD #### CRP, CP, CDP #### [facility] [address] [place], [place] [id number] Wharf Tender Helper: Calin Tapia MD Neutrophil (Seg) 66 % High 36-65 [facility] Comment on above: Performed By: #### C ELPX #### [address] [address] Wharf Tender Helper: John Mason MD #### CRP, CP, CDP #### [facility] [address] [place] [id number] Wharf Tender Helper: Calin Tapia MD NRBC Automated 0.0 per 100 WBC Normal 0.0 [facility] Comment on above: Performed By: #### C ELPX #### [address] [address] Wharf Tender Helper: John Mason MD #### CRP, CP, CDP #### [facility] [address] [place], [facility] Wharf Tender Helper: Calin Tapia MD Platelet mean volume (Bld) [Entitic vol] 9.3 fL Normal 8.1-13.5 [facility] Comment on above: Performed By: #### C ELPX #### [address] [address] Wharf Tender Helper: John Mason MD #### CRP, CP, CDP #### [facility] [address] [place] [address] [address] [place] [id number] Wharf Tender Helper: Calin Tapia MD Platelets (Bld) [#/Vol] 248 10*3/uL Normal 138-453 [facility] Comment on above: Performed By: #### C ELPX #### [address] [address] Wharf Tender Helper: John Mason MD #### CRP, CP, CDP #### [facility] [address] [place] [address] Wharf Tender Helper: Calin Tapia MD RBC (Bld) [#/Vol] 4.28 10*6/uL Normal 3.95-5.11 [facility] Comment on above: Performed By: #### C ELPX #### [address] [address] Wharf Tender Helper: John Mason MD #### CRP, CP, CDP #### [address] [place] [address] Wharf Tender Helper: Calin Tapia MD WBC (Bld) [#/Vol] 5.9 10*3/uL Normal 3.5-11.3 [facility] Comment on above: Performed By: #### C ELPX #### [address] [address] Wharf Tender Helper: John Mason MD #### CRP, CP, CDP #### [address] [place] [address] Wharf Tender Helper: Calin Tapia MD Comp Metabolic Profon 2023 Albumin [Mass/Vol] 4.9 g/dL Normal 3.5-5.2 [facility] Comment on above: Performed By: #### C ELPX #### [address] [place] [address] Wharf Tender Helper: John Mason MD #### CRP, CP, CDP #### [address] [place] [address] Wharf Tender Helper: Calin Tapia MD Albumin/Glob Ratio 1.7 Normal 1.0-2.5 [facility] Comment on above: Performed By: #### C ELPX #### [address] [address] Wharf Tender Helper: John Mason MD #### CRP, CP, CDP #### [facility] [address] [place], [place] [id number] Wharf Tender Helper: Calin Tapia MD Alkaline Phos 62 U/L Normal 35-104 [facility] Comment on above: Performed By: #### C ELPX #### [address] [address] Wharf Tender Helper: John Mason MD #### CRP, CP, CDP #### [facility] [address] [place] [address] Wharf Tender Helper: Calin Tapia MD ALT [Catalytic activity/Vol] 19 U/L Normal 5-33 [facility] Comment on above: Performed By: #### C ELPX #### [address] [address] Wharf Tender Helper: John Mason MD #### CRP, CP, CDP #### [facility] [address] [place] [id number] Wharf Tender Helper: Calin Tapia MD Anion gap [Moles/Vol] 10 mmol/L Normal 9-17 [facility] Comment on above: Performed By: #### C ELPX #### [address] [address] Wharf Tender Helper: John Mason MD #### CRP, CP, CDP #### [facility] [address] [place], [place] [id number] Wharf Tender Helper: Calin Tapia MD AST [Catalytic activity/Vol] 19 U/L Normal <32 [facility] Comment on above: Performed By: #### C ELPX #### [address] [address] Wharf Tender Helper: John Mason MD #### CRP, CP, CDP #### [facility] [address] [place], [place] [id number] Wharf Tender Helper: Calin Tapia MD Bilirubin [Mass/Vol] 0.6 mg/dL Normal 0.3-1.2 [facility] Comment on above: Performed By: #### C ELPX #### [address] [address] Wharf Tender Helper: John Mason MD #### CRP, CP, CDP #### [address] [place], [place] [id number] Wharf Tender Helper: Calin Tapia MD BUN/CRE Ratio 22 High 9-20 [facility] Comment on above: Performed By: #### C ELPX #### [address] [address] Wharf Tender Helper: John Mason MD #### CRP, CP, CDP #### [address] [place], [place] 6887083 Wharf Tender Helper: Calin Tapia MD Calcium [Mass/Vol] 9.6 mg/dL Normal 8.6-10.4 [facility] Comment on above: Performed By: #### C ELPX #### [address] [address] Wharf Tender Helper: John Mason MD #### CRP, CP, CDP #### [address] [place], [place] [id number] Wharf Tender Helper: Calin Tapia MD Chloride [Moles/Vol] 105 mmol/L Normal 98-107 [facility] Comment on above: Performed By: #### C ELPX #### [address] [address] Wharf Tender Helper: John Mason MD #### CRP, CP, CDP #### [address] [place], [place] [id number] Wharf Tender Helper: Calin Tapia MD CO2 [Moles/Vol] 25 mmol/L Normal 20-31 [facility] Comment on above: Performed By: #### C ELPX #### [facility] [address] [place] [address] Wharf Tender Helper: John Mason MD #### CHRISTINE HERNANDEZ, CDP #### [facility] [address] [place], [place] [id number] Wharf Tender Helper: Calin Tapia MD Creatinine [Mass/Vol] 0.6 mg/dL Normal 0.5-0.9 [facility] Comment on above: Performed By: #### C ELPX #### [facility] [address] [place], [place] [id number] Wharf Tender Helper: John Mason MD #### CHRISTINE HERNANDEZ, CDP #### [facility] [address] [place] [address] Wharf Tender Helper: Calin Tapia MD GFR/1.73 sq M.predicted among non-blacks MDRD (S/P/Bld) [Vol rate/Area] mL/min/{1.73_m2} Normal >60 [facility] Comment on above: Result Comment: These results [...] affects renal tubular secretion. Performed By: #### C ELPX #### [facility] [address] [place] [address] Wharf Tender Helper: John Mason MD #### CRP, CP, CDP #### [facility] [address] [place] [address] Wharf Tender Helper: Calin Tapia MD Glucose [Mass/Vol] 98 mg/dL Normal 70-99 [facility] Comment on above: Performed By: #### C ELPX #### [facility] [address] [place] [address] Wharf Tender Helper: John Mason MD #### CRP, CP, CDP #### [facility] [address] [place], [place] 4706083 Wharf Tender Helper: Calin Tapia MD Potassium [Moles/Vol] 4.4 mmol/L Normal 3.7-5.3 [facility] Comment on above: Performed By: #### C ELPX #### [address] [address] Wharf Tender Helper: John Mason MD #### CRP, CP, CDP #### [facility] [address] [place] [id number] Wharf Tender Helper: Calin Tapia MD Protein [Mass/Vol] 7.8 g/dL Normal 6.4-8.3 [facility] Comment on above: Performed By: #### C ELPX #### [place] [place] [address] Wharf Tender Helper: John Mason MD #### CRP, CP, CDP #### [facility] [address] [place], [place] [id number] Wharf Tender Helper: Calin Tapia MD Sodium [Moles/Vol] 140 mmol/L Normal 135-144 [facility] Comment on above: Performed By: #### C ELPX #### [address] [address] Wharf Tender Helper: John Mason MD #### CRP, CP, CDP #### [facility] [address] [place], [place] [id number] Wharf Tender Helper: Calin Tapia MD Urea nitrogen [Mass/Vol] 13 mg/dL Normal 6-20 [facility] Comment on above: Performed By: #### C ELPX #### [employer] [address] [place], [place] [id number] Wharf Tender Helper: John Mason MD #### CRP, CP, CDP #### [facility] [address] [place] [address] Wharf Tender Helper: Calin Tapia MD D-Dimer Teston 03-18-2024 D-Dimer Test 0.27 ug/mL FEU Normal 0.00-0.59 [facility] Comment on above: Result Comment: When [...] patients with distal DVT. Performed By: #### C ELPX #### [facility] [address] [place], [place] [id number] Wharf Tender Helper: John Mason MD #### CRP, CP, CDP #### [facility] [address] [place] [address] Wharf Tender Helper: Calin Tapia MD HCG Screen, Bloodon 03-18-20 24 HCG Screen, Blood Negative Normal NEG [facility] Comment on above: Result Comment: Spec imens with hCG levels near the threshold of the test (25 mIU/mL) may give a negative or indeterminate result. In such cases, another test should be performed with a new specimen in 48-72 hours. If early is suspected clinically in this setting, correlation with quantitative serum b-hCG level is suggested. [facility] has confirmed the use of plasma for this test. This has not been cleared or approved by the U.S. Food and Drug Administration. The FDA has determined that such clearance is not necessary. Performed By: #### C ELPX #### [address] [place] [address] Wharf Tender Helper: John Mason MD #### CHRISTINE HERNANDEZ, CDP #### [facility] [address] [place] [address] Wharf Tender Helper: Calin Tapia MD Lipaseon 03-18-2024 Lipase [Catalytic activity/Vol] 21 U/L Normal 13-60 [facility] Comment on above: Performed By: #### C ELPX #### [address] [place] [address] Wharf Tender Helper: John Mason MD #### CHRISTINE HERNANDEZ, CDP #### [facility] [address] [place] [address] Wharf Tender Helper: Calin Tapia MD Troponinon 03-18-2024 Troponin, High Sens 6 ng/L Normal 0-14 [facility] Comment on above: Result Comment: High Sensitivity Troponin values cannot be compared with other Troponin methodologies. Performed By: #### C ELPX #### [address] [place] [address] Wharf Tender Helper: John Mason MD #### CRP, CP, CDP #### [facility] [address] [place] [address] Wharf Tender Helper: Calin Tapia MD Urinalysis w/ Microon 2023 Bacteria TRACE Abnormal NONE [facility] Comment on above: Performed By: #### C ELPX #### [address] [address] Wharf Tender Helper: John Mason MD #### CRP, CP, CDP #### [facility] [address] [place], [place] [id number] Wharf Tender Helper: Calin Tapia MD Bilirubin, SemiQt,Ur Negative Normal NEG [facility] Comment on above: Performed By: #### C ELPX #### [address] [address] Wharf Tender Helper: John Mason MD #### CRP, CP, CDP #### [facility] [address] [place] [address] [address] [place], [place] 1737983 Wharf Tender Helper: Calin Tapia MD Blood, Urine TRACE Abnormal NEG [facility] Comment on above: Performed By: #### C ELPX #### [address] [address] Wharf Tender Helper: John Mason MD #### CRP, CP, CDP #### [facility] [address] [place] [address] [address] [place], [place] [id number] Wharf Tender Helper: Calin Tapia MD Clarity (U) Clear Normal CLEAR [facility] Comment on above: Performed By: #### C ELPX #### [address] [address] Wharf Tender Helper: John Mason MD #### CRP, CP, CDP #### [facility] [address] [place], [place] 3235683 Wharf Tender Helper: Calin Tapia MD Color (U) Yellow Normal YEL [facility] Comment on above: Performed By: #### C ELPX #### [address] [address] Wharf Tender Helper: John Mason MD #### CRP, CP, CDP #### [address] [place] [address] Wharf Tender Helper: Calin Tapia MD Epithelial cells LM Ql (Urine sed) 0 TO 2 Normal 0-25 [facility] Comment on above: Performed By: #### C ELPX #### [address] [address] Wharf Tender Helper: John Mason MD #### CRP, CP, CDP #### [address] [place] [address] Wharf Tender Helper: Calin Tapia MD Glucose Ql (U) Negative Normal NEG [facility] Comment on above: Performed By: #### C ELPX #### [address] [address] Wharf Tender Helper: John Mason MD #### CRP, CP, CDP #### [address] [place] [address] Wharf Tender Helper: Calin Tapia MD Ketones Ql (U) Negative Normal NEG [facility] Comment on above: Performed By: #### C ELPX #### [address] [address] Wharf Tender Helper: John Mason MD #### CRP, CP, CDP #### [address] [place] [address] Wharf Tender Helper: Calin Tapia MD Leukocyte esterase Test strip Ql (U) Negative Normal NEG [facility] Comment on above: Performed By: #### C ELPX #### [address] [address] Wharf Tender Helper: John Mason MD #### CRP, CP, CDP #### [address] [place], [place] 6579083 Wharf Tender Helper: Calin Tapia MD Nitrite,Ur Negative Normal NEG [facility] Comment on above: Performed By: #### C ELPX #### [address] [place] [address] Wharf Tender Helper: John Mason MD #### CRP, CP, CDP #### [facility] [address] [place] [address] Dr. [place] [phone] Wharf Tender Helper: Calin Tapia MD PH,Ur 6.5 Normal 5.0-9.0 [facility] Comment on above: Performed By: #### C ELPX #### [address] [address] Wharf Tender Helper: John Mason MD #### CRP, CP, CDP #### [address] [place] [phone] Wharf Tender Helper: Calin Tapia MD Protein Ql (U) Negative Normal NEG [facility] Comment on above: Performed By: #### C ELPX #### [address] [address] Wharf Tender Helper: John Mason MD #### CRP, CP, CDP #### [address] [place], [place] 0142383 Wharf Tender Helper: Calin Tapia MD Spec. [place],Ur 1.010 Normal 1.010-1.020 [facility] Comment on above: Performed By: #### C ELPX #### [address] [address] Wharf Tender Helper: John Mason MD #### CRP, CP, CDP #### [address] [place] [address] Wharf Tender Helper: Calin Tapia MD Urine RBC's 0 TO 2 Normal 0-2 [facility] Comment on above: Performed By: #### C ELPX #### [facility] [address] [place] [address] Wharf Tender Helper: John Msaon MD #### CRP, CP, CDP #### [facility] [address] [place] [address] [place], [place] 5809783 Wharf Tender Helper: Calin Tapia MD Urine WBC's 0 TO 2 Normal 0-5 [facility] Comment on above: Performed By: #### C ELPX #### [address] [address] Wharf Tender Helper: John Mason MD #### CRP, CP, CDP #### [facility] [address] [place] [address] [place], [place] [id number] Wharf Tender Helper: Calin Tapia MD Urobilinogen,Ur Normal Normal 0.0-1.0 [facility] Comment on above: Performed By: #### C ELPX #### [address] [address] Wharf Tender Helper: John Mason MD #### CRP, CP, CDP #### [facility] [address] [place] [address] [place], [place] [id number] Wharf Tender Helper: Calin Tapia MD XR CHEST (2 VW)on [...] Calin Romero MD 03/18/24 Final result Normal [facility] Anti-Thy Peroxidaseon 2023 Anti-Thy Peroxidase <4.0 Normal 0.0-25.0 [facility] Comment on above: Result Comment: Reference Range: <25.0 Negative 25.0-35.0 Equivocal >35.0 Positive When results are Equivocal, it is recommended to retest after 8-12 weeks. Performed By: #### U MAVIS CARDOSO #### [facility] [address] [place] [address] Wharf Tender Helper: Calin Tapia MD T4, Freeon 01-22-2024 Free T4 [Mass/Vol] 1.6 ng/dL 0.92 - 1. 68 ng/dL [facility] TSH w/reflex to FT4on 2023 Thyroid Stim. Horm. 1.40 uIU/mL Normal 0.30-5.00 [facility] Comment on above: Performed By: #### MAVIS PANIAGUA #### [facility] [address] [place] [address] Wharf Tender Helper: Calin Tapia MD TSH with Reflexon 01-22-2024 TSH Qn 1.40 m[IU]/L [facility] Thyroxine, Freeon 01-22-2024 Thyroxine, Free 1.6 ng/dL Normal 0.92-1.68 [facility] Comment on above: Performed By: #### MAVIS PANIAGUA #### [facility] [address] [place] [address] [place] [address] Wharf Tender Helper: Calin Tapia MD Calprotectin, Fecalon 2023 Calprotectin, Fecal 32 ug/g Normal <=49 [facility] Comment on above: Result Comment: (NOT E) REFERENCE INTERVAL: Calprotectin, Fecal by Immunoassay Less than 50 ug/g.........Normal 50-120 ug/g...............Borderline elevated, test should be re-evaluated in 4-6 weeks. 121 ug/g or greater.......Elevated Performed By: [facility] [address] [place] [id number] Monomer Recovery Operator: Jad Perry MD, PhD CLIA Number: [id number] Performed By: #### U WALKER, SHERRIO #### [facility] [address] [place] [address] Dr. [place] [phone] Wharf Tender Helper: Calin Tapia MD Food, Comprehensiveon 2023 Barley IgE <0.10 Normal 0.00-0.34 [facility] Comment on above: Performed By: #### C ELPX #### [address] [address] Wharf Tender Helper: John Mason MD #### CRP, CP, CDP #### [address] [place] [phone] Wharf Tender Helper: Calin Tapia MD Beef IgE <0.10 Normal 0.00-0.34 [facility] Comment on above: Performed By: #### C ELPX #### [address] [address] Wharf Tender Helper: John Mason MD #### CRP, CP, CDP #### [address] [place] [phone] Wharf Tender Helper: Calin Tapia MD Cabbage IgE <0.10 Normal 0.00-0.34 [facility] Comment on above: Performed By: #### C ELPX #### [address] [address] Wharf Tender Helper: John Mason MD #### CRP, CP, CDP #### [address] [place] [phone] Wharf Tender Helper: Calin Tapia MD Carrot IgE <0.10 Normal 0.00-0.34 [facility] Comment on above: Performed By: #### C ELPX #### [address] [address] Wharf Tender Helper: John Mason MD #### CRP, CP, CDP #### [address] [place] [address] Wharf Tender Helper: aClin Tapia MD Chicken IgE <0.10 Normal 0.00-0.34 [facility] Comment on above: Performed By: #### C ELPX #### [address] [address] Wharf Tender Helper: John Mason MD #### CRP, CP, CDP #### [address] [place] [address] Wharf Tender Helper: Calin Tapia MD Codfish IgE <0.10 Normal 0.00-0.34 [facility] Comment on above: Performed By: #### C ELPX #### [address] [id number] Wharf Tender Helper: John Mason MD #### CRP, CP, CDP #### [address] [place], [place] 1050683 Wharf Tender Helper: Calin Tapia MD [place] IgE <0.10 Normal 0.00-0.34 [facility] Comment on above: Performed By: #### C ELPX #### [address] [address] Wharf Tender Helper: John Mason MD #### CRP, CP, CDP #### [address] [place], [place] 6638283 Wharf Tender Helper: Calin Tapia MD Crab IgE <0.10 Normal 0.00-0.34 [facility] Comment on above: Performed By: #### C ELPX #### [address] [address] Wharf Tender Helper: John Mason MD #### CRP, CP, CDP #### [facility] [place], [place] [id number] Wharf Tender Helper: Calin Tapia MD Egg White IgE <0.10 Normal 0.00-0.34 [facility] Comment on above: Performed By: #### C ELPX #### [address] [address] Wharf Tender Helper: John Mason MD #### CRP, CP, CDP #### [address] [place], [place] 2202983 Wharf Tender Helper: Calin Tapia MD Grape IgE <0.10 Normal 0.00-0.34 [facility] Comment on above: Performed By: #### C ELPX #### [address] [address] Wharf Tender Helper: John Mason MD #### CRP, CP, CDP #### [address] [place] [id number] Wharf Tender Helper: Calin Tapia MD Lettuce IgE <0.10 Normal 0.00-0.34 [facility] Comment on above: Performed By: #### C ELPX #### [address] [address] Wharf Tender Helper: John Mason MD #### CRP, CP, CDP #### [address] [place], [place] [id number] Wharf Tender Helper: Calin Tapia MD Milk (Cow) IgE <0.10 Normal 0.00-0.34 [facility] Comment on above: Performed By: #### C ELPX #### [address] [address] Wharf Tender Helper: John Mason MD #### CRP, CP, CDP #### [address] [place], [place] 3286383 Wharf Tender Helper: Calin Tapia MD Batt[place] Song IgE <0.10 Normal 0.00-0.34 [facility] Comment on above: Performed By: #### C ELPX #### [address] [place] [address] Wharf Tender Helper: John Mason MD #### CRP, CP, CDP #### [facility] [address] [place] [address] [address]. [place] [phone] Wharf Tender Helper: Calin Tapia MD Oat IgE <0.10 Normal 0.00-0.34 [facility] Comment on above: Performed By: #### C ELPX #### [address] [address] Wharf Tender Helper: John Mason MD #### CRP, CP, CDP #### [facility] [address] [place] [address] [place] [phone] Wharf Tender Helper: Calin Tapia MD [place] IgE <0.10 Normal 0.00-0.34 [facility] Comment on above: Performed By: #### C ELPX #### [address] [address] Wharf Tender Helper: John Mason MD #### CRP, CP, CDP #### [address] [place] [id number] Wharf Tender Helper: Calin Tapia MD Peanut IgE <0.10 Normal 0.00-0.34 [facility] Comment on above: Performed By: #### C ELPX #### [address] [address] Wharf Tender Helper: John Mason MD #### CRP, CP, CDP #### [facility] [address] [place] [address] [address]. [place] [phone] Wharf Tender Helper: Calin Tapia MD Pepper C. annuum IgE <0.10 Normal 0.00-0.34 [facility] Comment on above: Performed By: #### C ELPX #### [address] [address] Wharf Tender Helper: John Mason MD #### CRP, CP, CDP #### [facility] [address] [place] [address] Dr. [place], [place] [id number] Wharf Tender Helper: Calin Tapia MD Pork IgE <0.10 Normal 0.00-0.34 [facility] Comment on above: Performed By: #### C ELPX #### [address] [address] Wharf Tender Helper: John Mason MD #### CRP, CP, CDP #### [address] [place] [id number] Wharf Tender Helper: Calin Tapia MD Potato IgE <0.10 Normal 0.00-0.34 [facility] Comment on above: Performed By: #### C ELPX #### [address] [address] Wharf Tender Helper: John Mason MD #### CRP, CP, CDP #### [address] [place], [place] 9340983 Wharf Tender Helper: Calin Tapia MD Rice IgE <0.10 Normal 0.00-0.34 [facility] Comment on above: Performed By: #### C ELPX #### [address] [address] Wharf Tender Helper: John Mason MD #### CRP, CP, CDP #### [facility] [address] [place] [address] [place], [place] [phone] Wharf Tender Helper: Calin Tapia MD [place] IgE <0.10 Normal 0.00-0.34 [facility] Comment on above: Performed By: #### C ELPX #### [address] [address] Wharf Tender Helper: John Mason MD #### CRP, CP, CDP #### [address] [place], [place] 5557783 Wharf Tender Helper: Calin Tapia MD Shrimp IgE <0.10 Normal 0.00-0.34 [facility] Comment on above: Performed By: #### C ELPX #### [address] [address] Wharf Tender Helper: John Mason MD #### CRP, CP, CDP #### [address] [place] [address] Wharf Tender Helper: Calin Tapia MD Soybean IgE <0.10 Normal 0.00-0.34 [facility] Comment on above: Performed By: #### C ELPX #### [address] [address] Wharf Tender Helper: John Mason MD #### CRP, CP, CDP #### [address] [place] [address] Wharf Tender Helper: Calin Tapia MD Tomato IgE <0.10 Normal 0.00-0.34 [facility] Comment on above: Performed By: #### C ELPX #### [address] [address] Wharf Tender Helper: John Mason MD #### CRP, CP, CDP #### [address] [place] [address] Wharf Tender Helper: Calin Tapia MD Tuna IgE <0.10 Normal 0.00-0.34 [facility] Comment on above: Performed By: #### C ELPX #### [address] [address] Wharf Tender Helper: John Mason MD #### CHRISTINE HERNANDEZ, CDP #### [facility] [address] [place] [address] [place] [address] Wharf Tender Helper: Calin Tapia MD Wheat IgE <0.10 Normal 0.00-0.34 [facility] Comment on above: Result Comment: ALLERGEN, INTERP, [...] allergy or even anaphylaxis. Performed By: #### C ELPX #### [address] [id number] Wharf Tender Helper: John Mason MD #### CHRISTINE HERNANDEZ, CDP #### [address] [place] [address] Wharf Tender Helper: Calin Tapia MD Celiac Reflex Panelon 2023 Gliadin Deam Pep IgA 4.7 U/mL Normal <7.0 [facility] Comment on above: Result Comment: CELIAC INTERPRETATION <7.0 Negative 7.0-10.0 Equivocal >10.0 Positive units: U/mL Performed By: #### C ELPX #### [employer] [facility] [place], [place] [id number] Wharf Tender Helper: John Mason MD #### CHRISTINE HERNANDEZ, CDP #### [address] [place] [address] Wharf Tender Helper: Calin Tapia MD Gliadin Deam Pep IgG <0.4 Normal <7.0 [facility] Comment on above: Result Comment: CELIAC INTERPRETATION <7.0 Negative 7.0-10.0 Equivocal >10.0 Positive units: U/mL Performed By: #### C ELPX #### [address] [address] Wharf Tender Helper: John Mason MD #### CRP, CP, CDP #### [address] [place] [id number] Wharf Tender Helper: Calin Tapia MD Tiss Transglutam IgA <0.1 Normal <7.0 [facility] Comment on above: Result Comment: CELIAC INTERPRETATION <7.0 Negative 7.0-10.0 Equivocal >10.0 Positive units: U/mL Performed By: #### C ELPX #### [address] [address] Wharf Tender Helper: John Mason MD #### CRP, CP, CDP #### [address] [place] [address] Wharf Tender Helper: Calin Tapia MD Tiss Transglutam IgG <0.6 Normal <7.0 [facility] Comment on above: Result Comment: CELIAC INTERPRETATION <7.0 Negative 7.0-10.0 Equivocal >10.0 Positive units: U/mL Performed By: #### C ELPX #### [address] [address] Wharf Tender Helper: John Mason MD #### CRP, CP, CDP #### [address] [place] [address] Wharf Tender Helper: Calin Tapia MD Ova+Parasit,Preservedon 01-01 Ova+Parasit,Preserve d Specimen Description .FECES O+P Result Specimen sent in preservative. CONCENTRATE STAIN: NO OVA OR PARASITES SEEN PERMANENT STAIN: NO OVA OR PARASITES SEEN Report Status FINAL 01/18/2024 Normal [facility] Comment on above: Performed By: #### C ELPX #### [facility] [address] [place] [address] Wharf Tender Helper: John Mason MD #### CHRISTINE HERNANDEZ, CDP #### [facility] [address] [place], [place] [address] Wharf Tender Helper: Calin Tapia MD Cult,Woundon 01-17-2024 Cult,Wound Specimen Description .NOSE Direct Exam NO NEUTROPHILS SEEN RARE GRAM POSITIVE COCCI Culture NORMAL SKIN TEX Report Status FINAL 01/17/2024 Normal [facility] Comment on above: Performed By: #### C ELPX #### [facility] [address] [place] [address] Wharf Tender Helper: John Mason MD #### CHRISTINE HERNANDEZ, CDP #### [facility] [address] [place], [place] [address]83 Wharf Tender Helper: Calin Tapia MD Stool PCR Batteryon 01-17-20 Campylobacter sp PCR NEGATIVE: No Campylobacter spp. (jejuni or coli) DNA Detected Normal CAMNEG [facility] Comment on above: Performed By: #### U AX, UMICAO #### [facility] [address] [place], [place] [id number] Wharf Tender Helper: Calin Tapia MD E coli enterotox PCR NEGATIVE: No Enterotoxigenic E. coli (ETEC) Heat-labile and heat-stable (LT/ST) Normal EECNEG [facility] Comment on above: Result Comment: DNA Detected Performed By: #### U AX, UMICAO #### [facility] [address] [place], [place] [id number] Wharf Tender Helper: Calin Tapia MD Plesiomonas sp PCR Negative [facility] Comment on above: Performed By: #### U AX, UMICAO #### [facility] [address] [place] [address] Wharf Tender Helper: Calin Tapia MD Salmonella sp PCR Negative Normal SALNEG [facility] Comment on above: Performed By: #### U AX, UMICAO #### [facility] [address] [place] [address] Wharf Tender Helper: Calin Tapia MD Shigatoxin gene PCR Negative Normal STXNEG [facility] Comment on above: Performed By: #### U AX, UMICAO #### [facility] [address] [place] [address] Wharf Tender Helper: Calin Tapia MD Shigella sp PCR Negative Normal SHINEG [facility] Comment on above: Performed By: #### U AX, UMICAO #### [facility] [address] [place] [address] Wharf Tender Helper: Calin Tapia MD Vibrio sp PCR NEGATIVE: No Vibrio (V. vulnificus, V, parahaemolyticus and V. cholerae) DNA Normal VIBNEG [facility] Comment on above: Result Comment: Dete cted Performed By: #### U AX, UMICAO #### [facility] [address] [place] [address] Wharf Tender Helper: Calin Tapia MD Yersinia gene PCR Negative Slaughters YERNEG [facility] Comment on above: Performed By: #### U AX, UMICAO #### [facility] [address] [place] [address] Wharf Tender Helper: Calin Tapia MD C diff Ag + Toxinon 01-16-20 24 C diff Ag + Toxin Negative Normal NEG [facility] Comment on above: Result Comment: No C . difficile antigen and Toxin Detected. Performed By: #### U AX, UMICAO #### [facility] [address] [place], [place] [id number] Wharf Tender Helper: Calin Tapia MD Specimen Description .FECES Normal [facility] Comment on above: Performed By: #### U AX, UMICAO #### [facility] [address] [place], [place] [address] Wharf Tender Helper: Clain Tapia MD Occult Blood, Fecalon 2023 Occult Blood 1 Negative Normal NEG [facility] Comment on above: Performed By: #### U AX, UMICAO #### [facility] [address] [place] [address] [address] [place], [place] [phone] Wharf Tender Helper: Calin Tapia MD Specimen 1 Date [facility] Comment on above: Performed By: #### U AX, UMICAO #### [facility] [address] [place] [address] [address] [place], [place] [phone] Wharf Tender Helper: Calin Tapia MD Specimen 1 Time 0900 [facility] Comment on above: Performed By: #### U AX, UMICAO #### [address] [place], [place] [id number] Wharf Tender Helper: Calin Tapia MD C-Reactive Proteinon 024 CRP High sensitivity method [Mass/Vol] mg/L 0.0 - 5.0 mg/L [facility] CRP [Mass/Vol] mg/L Normal 0.0-5.0 [facility] Comment on above: Performed By: #### C ELPX #### [facility] [address], [place] [phone] Wharf Tender Helper: John Mason MD #### CRP, CP, CDP #### [facility] [address] [place] [address] [address] [place], [place] [phone] Wharf Tender Helper: Calin Tapia MD CBC with Auto Differentialon 01-15-2024 Basophils (Bld) [#/Vol] 0.06 10*3/uL [facility] Basophils/100 WBC (Bld) 1 % 0 - 2 % [facility] Eosinophils (Bld) [#/Vol] 0.16 10*3/uL [facility] Eosinophils/100 WBC (Bld) 2 % 1 - 4 % [facility] Erythrocyte distribution width (RBC) [Ratio] 11.8 % 11.8 - 14.4 % [facility] Hematocrit (Bld) [Volume fraction] 40.9 % 36.3 - 47.1 % [facility] Hemoglobin (Bld) [Mass/Vol] 14.7 g/dL 11.9 - 15.1 g/dL [facility] Immature granulocytes (Bld) [#/Vol] 0.03 10*3/uL [facility] Immature granulocytes/100 WBC (Bld) 0 % 0 [facility] Interpretation and review of laboratory results Abnormal [facility] Lymphocytes/100 WBC (Bld) 22 % Low 24 - 43 % [facility] Lymphocytes/100 WBC (Bld) 1.92 % [facility] MCH (RBC) [Entitic mass] 34.3 pg High 25.2 - 33.5 pg [facility] MCHC (RBC) [Mass/Vol] 35.9 g/dL High 28.4 - 34.8 g/dL [facility] MCV (RBC) [Entitic vol] 95.3 fL 82.6 - 102.9 fL [facility] Monocytes/100 WBC (Bld) 6 % 3 - 12 % [facility] Monocytes/100 WBC (Bld) 0.50 % [facility] Neutrophils/100 WBC (Bld) 70 % High 36 - 65 % [facility] Nucleated RBC/100 WBC (Bld) [Ratio] 0.0 % 0.0 per 100 WBC [facility] Platelet mean volume (Bld) [Entitic vol] 9.8 fL 8.1 - 13.5 fL [facility] Platelets (Bld) [#/Vol] 342 10*3/uL [facility] RBC (Bld) [#/Vol] 4.29 10*6/uL 3.95 - 5.1 1 m/uL [facility] Segmented neutrophils/100 WBC (Bld) 6.04 % [facility] WBC other (Bld) [#/Vol] 8.7 [facility] CBC with Diffon 01-15-2024 Abs. Basophil 0.06 k/uL Normal 0.00-0.20 [facility] Comment on above: Performed By: #### C ELPX #### [address] [place] [address] Wharf Tender Helper: John Mason MD #### CRP, CP, CDP #### [address] [place] [address] Wharf Tender Helper: Calin Tapia MD Abs.Imm.Granulocyte 0.03 k/uL Normal 0.00-0.30 [facility] Comment on above: Performed By: #### C ELPX #### [address] [address] Wharf Tender Helper: John Mason MD #### CRP, CP, CDP #### [address] [place] [phone] Wharf Tender Helper: Calin Tapia MD Abs.Neutrophil (Seg) 6.04 k/uL Normal 1.50-8.10 [facility] Comment on above: Performed By: #### C ELPX #### [address] [address] Wharf Tender Helper: John Mason MD #### CRP, CP, CDP #### [address] [place] [phone] Wharf Tender Helper: Calin Tapia MD Basophils/100 WBC (Bld) 1 % Normal 0-2 [facility] Comment on above: Performed By: #### C ELPX #### [address] [address] Wharf Tender Helper: John Mason MD #### CRP, CP, CDP #### [address] [place] [phone] Wharf Tender Helper: Calin Tapia MD Eosinophils (Bld) [#/Vol] 0.16 10*3/uL Normal 0.00-0.44 [facility] Comment on above: Performed By: #### C ELPX #### [address] [address] Wharf Tender Helper: John Mason MD #### CRP, CP, CDP #### [address] [place] [phone] Wharf Tender Helper: Calin Tapia MD Eosinophils/100 WBC (Bld) 2 % Normal 1-4 [facility] Comment on above: Performed By: #### C ELPX #### [address] [address] Wharf Tender Helper: John Mason MD #### CRP, CP, CDP #### [address] [place] [phone] Wharf Tender Helper: Calin Tapia MD Erythrocyte distribution width (RBC) [Ratio] 11.8 % Normal 11.8-14.4 [facility] Comment on above: Performed By: #### C ELPX #### [address] [address] Wharf Tender Helper: John Mason MD #### CRP, CP, CDP #### [address] [place] [phone] Wharf Tender Helper: Calin Tapia MD Hematocrit (Bld) [Volume fraction] 40.9 % Normal 36.3-47.1 [facility] Comment on above: Performed By: #### C ELPX #### [address] [address] Wharf Tender Helper: John Mason MD #### CRP, CP, CDP #### [address] [place] [address] Wharf Tender Helper: Calin Tapia MD Hemoglobin (Bld) [Mass/Vol] 14.7 g/dL Normal 11.9-15.1 [facility] Comment on above: Performed By: #### C ELPX #### [address] [address] Wharf Tender Helper: John Mason MD #### CRP, CP, CDP #### [address] [place] [phone] Wharf Tender Helper: Calin Tapia MD Immature granulocytes/100 WBC (Bld) 0 % Normal 0 [facility] Comment on above: Performed By: #### C ELPX #### [address] [address] Wharf Tender Helper: John Mason MD #### CRP, CP, CDP #### [address] [place] [phone] Wharf Tender Helper: Calin Tapia MD Lymphocytes (Bld) [#/Vol] 1.92 10*3/uL Normal 1.10-3.70 [facility] Comment on above: Performed By: #### C ELPX #### [address] [address] Wharf Tender Helper: John Mason MD #### CRP, CP, CDP #### [address] [place] [phone] Wharf Tender Helper: Calin Tapia MD Lymphocytes/100 WBC (Bld) 22 % Low 24-43 [facility] Comment on above: Performed By: #### C ELPX #### [address] [address] Wharf Tender Helper: John Mason MD #### CRP, CP, CDP #### [address] [place], [place] 7279[address] Wharf Tender Helper: Calin Tapia MD MCH (RBC) [Entitic mass] 34.3 pg High 25.2-33.5 [facility] Comment on above: Performed By: #### C ELPX #### [address] [id number] Wharf Tender Helper: John Mason MD #### CRP, CP, CDP #### [address] [place] [phone] Wharf Tender Helper: Calin Tapia MD MCHC (RBC) [Mass/Vol] 35.9 g/dL High 28.4-34.8 [facility] Comment on above: Performed By: #### C ELPX #### [place] [id number] Wharf Tender Helper: John Mason MD #### CRP, CP, CDP #### [address] [place] [phone] Wharf Tender Helper: Calin Tapia MD MCV (RBC) [Entitic vol] 95.3 fL Normal 82.6-102.9 [facility] Comment on above: Performed By: #### C ELPX #### [place] [address] Wharf Tender Helper: John Mason MD #### CRP, CP, CDP #### [address] [place] [phone] Wharf Tender Helper: Calin Tapia MD Monocytes (Bld) [#/Vol] 0.50 10*3/uL Normal 0.10-1.20 [facility] Comment on above: Performed By: #### C ELPX #### [place] [id number] Wharf Tender Helper: John Mason MD #### CRP, CP, CDP #### [address] [place] [phone] Wharf Tender Helper: Calin Tapia MD Monocytes/100 WBC (Bld) 6 % Normal 3-12 [facility] Comment on above: Performed By: #### C ELPX #### [facility] [address] [place] [address] Wharf Tender Helper: John Mason MD #### CRP, CP, CDP #### [facility] [address] [place], [place] [phone] Wharf Tender Helper: Calin Tapia MD Neutrophil (Seg) 70 % High 36-65 [facility] Comment on above: Performed By: #### C ELPX #### [address] [address] Wharf Tender Helper: John Mason MD #### CRP, CP, CDP #### [address] [place] [phone] Wharf Tender Helper: Calin Tapia MD NRBC Automated 0.0 per 100 WBC Normal 0.0 [facility] Comment on above: Performed By: #### C ELPX #### [address] [address] Wharf Tender Helper: John Mason MD #### CRP, CP, CDP #### [facility] [address] [place] [address] [address] [place] [phone] Wharf Tender Helper: Calin Tapia MD Platelet mean volume (Bld) [Entitic vol] 9.8 fL Normal 8.1-13.5 [facility] Comment on above: Performed By: #### C ELPX #### [address] [address] Wharf Tender Helper: John Mason MD #### CRP, CP, CDP #### [facility] [address] [place] [phone] Wharf Tender Helper: Calin Tapia MD Platelets (Bld) [#/Vol] 342 10*3/uL Normal 138-453 [facility] Comment on above: Performed By: #### C ELPX #### [address] [place] [address] Wharf Tender Helper: John Mason MD #### CRP, CP, CDP #### [facility] [address] [place] [address] [address]. [place], [place] [phone] Wharf Tender Helper: Calin Tapia MD RBC (Bld) [#/Vol] 4.29 10*6/uL Normal 3.95-5.11 [facility] Comment on above: Performed By: #### C ELPX #### [address] [address] Wharf Tender Helper: John Mason MD #### CRP, CP, CDP #### [address] [place], [place] 0405483 Wharf Tender Helper: Calin Tapia MD WBC (Bld) [#/Vol] 8.7 10*3/uL Normal 3.5-11.3 [facility] Comment on above: Performed By: #### C ELPX #### [address] [address] Wharf Tender Helper: John Mason MD #### CRP, CP, CDP #### [address] [place], [place] 753[address]83 Wharf Tender Helper: Calin Tapia MD Celiac Reflex Panelon 2023 IgA [Mass/Vol] 281 mg/dL Normal 70-400 [facility] Comment on above: Performed By: #### C ELPX #### [address] [address] Wharf Tender Helper: John Mason MD #### CRP, CP, CDP #### [facility] [address] [place] [address] [address]. [place], [place] 8362383 Wharf Tender Helper: Calin Tapia MD Comp Metabolic Profon 2023 Albumin [Mass/Vol] 4.9 g/dL Normal 3.5-5.2 [facility] Comment on above: Performed By: #### C ELPX #### [facility] [address] [place] [address] Wharf Tender Helper: John Mason MD #### CRP, CP, CDP #### [facility] [address] [place] [address] [address] [place], [place] 7382483 Wharf Tender Helper: Calin Tapia MD Albumin/Glob Ratio 1.8 Normal 1.0-2.5 [facility] Comment on above: Performed By: #### C ELPX #### [address] [place] [address] Wharf Tender Helper: John Mason MD #### CRP, CP, CDP #### [facility] [address] [place] [address] Dr. [place] [phone] Wharf Tender Helper: Calin Tapia MD Alkaline Phos 59 U/L Normal 35-104 [facility] Comment on above: Performed By: #### C ELPX #### [address] [place] [address] Wharf Tender Helper: John Mason MD #### CRP, CP, CDP #### [address] [place], [place] [address]2883 Wharf Tender Helper: Calin Tapia MD ALT [Catalytic activity/Vol] 26 U/L Normal 5-33 [facility] Comment on above: Performed By: #### C ELPX #### [address] [address] Wharf Tender Helper: John Mason MD #### CRP, CP, CDP #### [facility] [address] [place], [place] [id number] Wharf Tender Helper: Calin Tapia MD Anion gap [Moles/Vol] 9 mmol/L Normal 9-17 [facility] Comment on above: Performed By: #### C ELPX #### [facility] [address] [place] [address] Wharf Tender Helper: John Mason MD #### CRP, CP, CDP #### [facility] [address] [place], [place] 3032083 Wharf Tender Helper: Calin Tapia MD AST [Catalytic activity/Vol] 25 U/L Normal <32 [facility] Comment on above: Performed By: #### C ELPX #### [facility] [address] [place] [address] Wharf Tender Helper: John Mason MD #### CRP, CP, CDP #### [facility] [address] [place], [place] 69[address]83 Wharf Tender Helper: Calin Tapia MD Bilirubin [Mass/Vol] 0.4 mg/dL Normal 0.3-1.2 [facility] Comment on above: Performed By: #### C ELPX #### [facility] [address] [place] [address] Wharf Tender Helper: John Mason MD #### CRP CP, CDP #### [facility] [address] [place], [place] [address]35[address] Wharf Tender Helper: Calin Tapia MD BUN/CRE Ratio 10 Normal 9-20 [facility] Comment on above: Performed By: #### C ELPX #### [facility] [address] [place] [address] Wharf Tender Helper: John Mason MD #### CRP, CP, CDP #### [facility] [address] [place], [place] 1807283 Wharf Tender Helper: Calin Tapia MD Calcium [Mass/Vol] 9.4 mg/dL Normal 8.6-10.4 [facility] Comment on above: Performed By: #### C ELPX #### [address] [place] [address] Wharf Tender Helper: John Mason MD #### DAVID CP, CDP #### [facility] [address] [place] [address] Wharf Tender Helper: Calin Tapia MD Chloride [Moles/Vol] 104 mmol/L Normal 98-107 [facility] Comment on above: Performed By: #### C ELPX #### [address] [address] Wharf Tender Helper: John Mason MD #### DAVID CP, CDP #### [facility] [address] [place] [address] Wharf Tender Helper: Calin Tapia MD CO2 [Moles/Vol] 28 mmol/L Normal 20-31 [facility] Comment on above: Performed By: #### C ELPX #### [address] [address] Wharf Tender Helper: John Mason MD #### DAVID CP, CDP #### [facility] [address] [place] [address] Wharf Tender Helper: Calin Tapia MD Creatinine [Mass/Vol] 0.7 mg/dL Normal 0.5-0.9 [facility] Comment on above: Performed By: #### C ELPX #### [address] [address] Wharf Tender Helper: John Mason MD #### CRP CP, CDP #### [facility] [address] [place] [address] Wharf Tender Helper: Calin Tapia MD GFR/1.73 sq M.predicted among non-blacks MDRD (S/P/Bld) [Vol rate/Area] mL/min/{1.73_m2} Normal >60 [facility] Comment on above: Result Comment: These results [...] affects renal tubular secretion. Performed By: #### C ELPX #### [address] [address] Wharf Tender Helper: John Mason MD #### CRP, CP, CDP #### [address] [place] [address] Wharf Tender Helper: Calin Tapia MD Glucose [Mass/Vol] 87 mg/dL Normal 70-99 [facility] Comment on above: Performed By: #### C ELPX #### [address] [address] Wharf Tender Helper: John Mason MD #### CRP, CP, CDP #### [facility] [address] [place] [address] [place] [address] Wharf Tender Helper: Calin Tapia MD Potassium [Moles/Vol] 4.0 mmol/L Normal 3.7-5.3 [facility] Comment on above: Performed By: #### C ELPX #### [address] [address] Wharf Tender Helper: John Mason MD #### CRP, CP, CDP #### [facility] [address] [place] [address] Wharf Tender Helper: Calin Tapia MD Protein [Mass/Vol] 7.7 g/dL Normal 6.4-8.3 [facility] Comment on above: Performed By: #### C ELPX #### [address] [address] Wharf Tender Helper: John Mason MD #### CRP, CP, CDP #### [facility] [address] [place] [address] Wharf Tender Helper: Calin Tapia MD Sodium [Moles/Vol] 141 mmol/L Normal 135-144 [facility] Comment on above: Performed By: #### C ELPX #### [facility] [address] [place], [place] 457[address] Wharf Tender Helper: John Mason MD #### CRP, CP, CDP #### [facility] [address] [place] [address] Wharf Tender Helper: Cailn Tapia MD Urea nitrogen [Mass/Vol] 7 mg/dL Normal 6-20 [facility] Comment on above: Performed By: #### C ELPX #### [address] [place], [place] [id number] Wharf Tender Helper: John Mason MD #### CRP, CP, CDP #### [facility] [address] [place] [address] Wharf Tender Helper: Calin Tapia MD [facility] Metabolic [facility] 01-15-2024 Albumin [Mass/Vol] 4.9 g/dL 3.5 - 5.2 g/dL [facility] Albumin/Globulin [Mass ratio] 1.8 {ratio} 1.0 - 2.5 [facility] ALP [Catalytic activity/Vol] 59 U/L 35 - 104 U/L [facility] ALT [Catalytic activity/Vol] 26 U/L 5 - 33 U/L [facility] Anion gap [Moles/Vol] 9 mmol/L 9 - 17 mmol/L [facility] AST [Catalytic activity/Vol] 25 U/L NINF - 32 U/L [facility] Bilirubin [Mass/Vol] 0.4 mg/dL 0.3 - 1 .2 mg/dL [facility] Calcium [Mass/Vol] 9.4 mg/dL 8.6 - 10. 4 mg/dL [facility] Chloride [Moles/Vol] 104 mmol/L 98 - 10 7 mmol/L [facility] CO2 [Moles/Vol] 28 mmol/L 20 - 31 mmol/L [facility] Creatinine [Mass/Vol] 0.7 mg/dL 0.5 - 0.9 mg/dL [facility] [employer] - [facility] Comment on above: These results are not [...] [Mass/Vol] 87 mg/dL 70 - 99 mg/dL [facility] Potassium [Moles/Vol] 4.0 mmol/L 3.7 - 5.3 mmol/L [facility] Protein [Mass/Vol] 7.7 g/dL 6.4 - 8.3 g/dL [facility] Sodium [Moles/Vol] 141 mmol/L 135 - 144 mmol/L [facility] Urea nitrogen [Mass/Vol] 7 mg/dL 6 - 20 mg/dL [facility] Urea nitrogen/Creatinine [Mass ratio] 10 mg/mg 9 - 20 [facility] Food, Comprehensiveon 2023 Immunoglobulin E 14 IU/mL Normal 0-100 [facility] Comment on above: Performed By: #### C ELPX #### [employer] [address] [place] [address] Wharf Tender Helper: John Mason MD #### CRP, CP, CDP #### [facility] [address] [place], [place] [address] Wharf Tender Helper: Calin Tapia MD Chlamydia/GC,DNA Ampon 01-11 Chlamydia Probe Negative Normal NEG [facility] Comment on above: Result Comment: CHLA [...] nucleic acid target. Performed By: #### C DP, MG, BMP, LIVP #### [facility] [address] [place] [address] Wharf Tender Helper: Calin Tapia MD Gonorrhea Probe Negative Normal NEG [facility] Comment on above: Result Comment: NEIS [...] nucleic acid target. Performed By: #### C DP, MG, BMP, LIVP #### [address] [place] [address] Wharf Tender Helper: Calin Tapia MD Cult,Urineon 01-12-2024 Cult,Urine Specimen Description .CLEAN CATCH URINE Special Requests Site: Urine Culture NO SIGNIFICANT GROWTH Report Status FINAL 01/12/2024 [facility] Comment on above: Performed By: #### C DP, MG, BMP, LIVP #### [facility] [address] [place] [address] [place] [address] Wharf Tender Helper: Calin Tapia MD CBC with Auto Differentialon 01-11-2024 Basophils (Bld) [#/Vol] 0.04 10*3/uL [facility] Basophils/100 WBC (Bld) 1 % 0 - 2 % [facility] Eosinophils (Bld) [#/Vol] 0.08 10*3/uL [facility] Eosinophils/100 WBC (Bld) 1 % 1 - 4 % [facility] Erythrocyte distribution width (RBC) [Ratio] 11.9 % 11.8 - 14.4 % [facility] Hematocrit (Bld) [Volume fraction] 37.5 % 36.3 - 47.1 % [facility] Hemoglobin (Bld) [Mass/Vol] 13.4 g/dL 11.9 - 15.1 g/dL [facility] Immature granulocytes (Bld) [#/Vol] [facility] Immature granulocytes/100 WBC (Bld) 0 % 0 [facility] Interpretation and review of laboratory results Abnormal [facility] Lymphocytes/100 WBC (Bld) 20 % Low 24 - 43 % [facility] Lymphocytes/100 WBC (Bld) 1.16 % [facility] MCH (RBC) [Entitic mass] 33.9 pg High 25.2 - 33.5 pg [facility] MCHC (RBC) [Mass/Vol] 35.7 g/dL High 28.4 - 34.8 g/dL [facility] MCV (RBC) [Entitic vol] 94.9 fL 82.6 - 102.9 fL [facility] Monocytes/100 WBC (Bld) 9 % 3 - 12 % [facility] Monocytes/100 WBC (Bld) 0.50 % [facility] Neutrophils/100 WBC (Bld) 69 % High 36 - 65 % [facility] Nucleated RBC/100 WBC (Bld) [Ratio] 0.0 % 0.0 per 100 WBC [facility] Platelet mean volume (Bld) [Entitic vol] 9.5 fL 8.1 - 13.5 fL [facility] Platelets (Bld) [#/Vol] 227 10*3/uL [facility] RBC (Bld) [#/Vol] 3.95 10*6/uL 3.95 - 5.1 1 m/uL [facility] Segmented neutrophils/100 WBC (Bld) 4.03 % [facility] WBC other (Bld) [#/Vol] 5.8 [facility] CBC with Diffon 01-11-2024 Abs. Basophil 0.04 k/uL Normal 0.00-0.20 [facility] Comment on above: Performed By: #### U AX UMICAO #### [facility] [address] [place], [place] [address] Wharf Tender Helper: Calin Tapia MD Abs.Imm.Granulocyte <0.03 Normal 0.00-0.30 [facility] Comment on above: Performed By: #### U AXGIOVANNAICAO #### [address] [place], [place] [address] Wharf Tender Helper: Calin Tapia MD Abs.Neutrophil (Seg) 4.03 k/uL Normal 1.50-8.10 [facility] Comment on above: Performed By: #### U AXGIOVANNAICAO #### [address] [place], [place] [address] Wharf Tender Helper: Calin Tapia MD Basophils/100 WBC (Bld) 1 % Normal 0-2 [facility] Comment on above: Performed By: #### U SHERRI CARDOSOO #### [address] [place], [place] [address] Wharf Tender Helper: Calin Tapia MD Eosinophils (Bld) [#/Vol] 0.08 10*3/uL Normal 0.00-0.44 [facility] Comment on above: Performed By: #### U AXGIOVANNAICAO #### [address] [place], [place] [address] Wharf Tender Helper: Calin Tapia MD Eosinophils/100 WBC (Bld) 1 % Normal 1-4 [facility] Comment on above: Performed By: #### U GIOVANNA CARDOSOICAO #### [address] [place], [facility] Wharf Tender Helper: Calin Tapia MD Erythrocyte distribution width (RBC) [Ratio] 11.9 % Normal 11.8-14.4 [facility] Comment on above: Performed By: #### U AXGIOVANNAICAO #### [facility] [address] [place], [place] [id number] Wharf Tender Helper: Calin Tapia MD Hematocrit (Bld) [Volume fraction] 37.5 % Normal 36.3-47.1 [facility] Comment on above: Performed By: #### U AX, UMICAO #### [facility] [address] [place], [facility] Wharf Tender Helper: Calin Tapia MD Hemoglobin (Bld) [Mass/Vol] 13.4 g/dL Normal 11.9-15.1 [facility] Comment on above: Performed By: #### U AXGIOVANNAICAO #### [address] [place], [place] [id number] Wharf Tender Helper: Calin Tapia MD Immature granulocytes/100 WBC (Bld) 0 % Normal 0 [facility] Comment on above: Performed By: #### U AXGIOVANNAICAO #### [address] [place], [facility] Wharf Tender Helper: Calin Tapia MD Lymphocytes (Bld) [#/Vol] 1.16 10*3/uL Normal 1.10-3.70 [facility] Comment on above: Performed By: #### U AX UMICAO #### [address] [place], [facility] Wharf Tender Helper: Calin Tapia MD Lymphocytes/100 WBC (Bld) 20 % Low 24-43 [facility] Comment on above: Performed By: #### U AX, UMICAO #### [address] [place], [place] [id number] Wharf Tender Helper: Calin Tapia MD MCH (RBC) [Entitic mass] 33.9 pg High 25.2-33.5 [facility] Comment on above: Performed By: #### U AXGIOVANNAICAO #### [address] [place], [facility] Wharf Tender Helper: Calin Tapia MD MCHC (RBC) [Mass/Vol] 35.7 g/dL High 28.4-34.8 [facility] Comment on above: Performed By: #### U AX, UMICAO #### [facility] [address] [place] [address] Wharf Tender Helper: Calin Tapia MD MCV (RBC) [Entitic vol] 94.9 fL Normal 82.6-102.9 [facility] Comment on above: Performed By: #### U AX, UMICAO #### [facility] [address] [place], [facility] Wharf Tender Helper: Calin Tapia MD Monocytes (Bld) [#/Vol] 0.50 10*3/uL Normal 0.10-1.20 [facility] Comment on above: Performed By: #### U AX, UMICAO #### [facility] [address] [place], [facility] Wharf Tender Helper: Calin Tapia MD Monocytes/100 WBC (Bld) 9 % Normal 3-12 [facility] Comment on above: Performed By: #### U AX, UMICAO #### [facility] [address] [place] [address] [place] [address] Wharf Tender Helper: Calin Tapia MD Neutrophil (Seg) 69 % High 36-65 [facility] Comment on above: Performed By: #### U AX, UMICAO #### [facility] [address] [place], [place] [phone] Wharf Tender Helper: Calin Tapia MD NRBC Automated 0.0 per 100 WBC Normal 0.0 [facility] Comment on above: Performed By: #### U AX, UMICAO #### [facility] [address] [place], [place] [id number] Wharf Tender Helper: Calin Tapia MD Platelet mean volume (Bld) [Entitic vol] 9.5 fL Normal 8.1-13.5 [facility] Comment on above: Performed By: #### U AX, SHERRIO #### [facility] [address] [place] [address] Wharf Tender Helper: Calin Tapia MD Platelets (Bld) [#/Vol] 227 10*3/uL Normal 138-453 [facility] Comment on above: Performed By: #### U AX, GIOVANNAICAO #### [facility] [address] [place] [address] Wharf Tender Helper: Calin Tapia MD RBC (Bld) [#/Vol] 3.95 10*6/uL Normal 3.95-5.11 [facility] Comment on above: Performed By: #### U AX, SHERRIO #### [facility] [address] [place], [place] [id number] Wharf Tender Helper: Calin Tapia MD WBC (Bld) [#/Vol] 5.8 10*3/uL Normal 3.5-11.3 [facility] Comment on above: Performed By: #### U AX, SHERRIO #### [facility] [address] [place] [address] Wharf Tender Helper: Calin Tapia MD [facility] 01-11-2024 Albumin [Mass/Vol] 4.4 g/dL 3.5 - 5.2 g/dL [facility] Albumin/Globulin [Mass ratio] 1.7 {ratio} 1.0 - 2.5 [facility] ALP [Catalytic activity/Vol] 62 U/L 35 - 104 U/L [facility] ALT [Catalytic activity/Vol] 15 U/L 5 - 33 U/L [facility] Anion gap [Moles/Vol] 12 mmol/L 9 - 17 mmol/L [facility] AST [Catalytic activity/Vol] 18 U/L NINF - 32 U/L [facility] Bilirubin [Mass/Vol] 0.4 mg/dL 0.3 - 1 .2 mg/dL [facility] Calcium [Mass/Vol] 8.9 mg/dL 8.6 - 10. 4 mg/dL [facility] Chloride [Moles/Vol] 102 mmol/L 98 - 10 7 mmol/L [facility] CO2 [Moles/Vol] 24 mmol/L 20 - 31 mmol/L [facility] Creatinine [Mass/Vol] 0.6 mg/dL 0.5 - 0.9 mg/dL [facility] Est, Glojorje Mendozat Rate - [facility] Comment on above: These results are not [...] [Mass/Vol] 91 mg/dL 70 - 99 mg/dL [facility] Potassium [Moles/Vol] 3.7 mmol/L 3.7 - 5.3 mmol/L [facility] Protein [Mass/Vol] 7.0 g/dL 6.4 - 8.3 g/dL [facility] Sodium [Moles/Vol] 138 mmol/L 135 - 144 mmol/L [facility] Urea nitrogen [Mass/Vol] 8 mg/dL 6 - 20 mg/dL [facility] Urea nitrogen/Creatinine [Mass ratio] 13 mg/mg 9 - [address] [facility] CT ABDOMEN PELVIS W IV CONTR Bradly [...] Jamey Perez MD 01/11/24 Final result Normal [facility] CT Abdomen and Pelvis W cont kelton Carmen 01-11-2024 1. Multiple fluid-filled loops of [...] exam. 5. The bladder is prominently distended. [facility] CONSOLIDATED EXAMINATION: CT OF THE ABDOMEN [...] to decubitus position, correlate with physical exam. [facility] Jamey Bourne MD - 01/11/2024 EXAMINATION: CT [...] exam. 5. The bladder is prominently distended. [facility] Radiology Study observation (narrative) [facility] CT Abdomen and Pelvis W cont rast IVOrdered By: Jamey Perez on 01-11-2024 [facility] Work Phone: Comp Metabolic Profon 2023 Albumin [Mass/Vol] 4.4 g/dL Normal 3.5-5.2 [facility] Comment on above: Performed By: #### U AX, UMICAO #### [facility] [address] [place] [address] Wharf Tender Helper: Calin Tapia MD Albumin/Glob Ratio 1.7 Normal 1.0-2.5 [facility] Comment on above: Performed By: #### U AX, UMICAO #### [facility] [address] [place] [address] Wharf Tender Helper: Calin Tapia MD Alkaline Phos 62 U/L Normal 35-104 [facility] Comment on above: Performed By: #### U AX, UMICAO #### [facility] [address] [place] [address] Wharf Tender Helper: Calin Tapia MD ALT [Catalytic activity/Vol] 15 U/L Normal 5-33 [facility] Comment on above: Performed By: #### U AX, UMICAO #### [facility] [address] [place], [place] [id number] Wharf Tender Helper: Calin Tapia MD Anion gap [Moles/Vol] 12 mmol/L Normal 9-17 [facility] Comment on above: Performed By: #### U AX, UMICAO #### [facility] [address] [place], [place] [id number] Wharf Tender Helper: Calin Tapia MD AST [Catalytic activity/Vol] 18 U/L Normal <32 [facility] Comment on above: Performed By: #### U AXGIOVANNAICAO #### [facility] [address] [place], [place] [id number] Wharf Tender Helper: Calin Tapia MD Bilirubin [Mass/Vol] 0.4 mg/dL Normal 0.3-1.2 [facility] Comment on above: Performed By: #### U AXGIOVANNAICAO #### [facility] [address] [place], [place] [id number] Wharf Tender Helper: Calin Tpaia MD BUN/CRE Ratio 13 Normal 9-20 [facility] Comment on above: Performed By: #### U AXGIOVANNAICAO #### [facility] [address] [place], [place] [id number] Wharf Tender Helper: Calin Tapia MD Calcium [Mass/Vol] 8.9 mg/dL Normal 8.6-10.4 [facility] Comment on above: Performed By: #### U AX UMICAO #### [facility] [address] [place], [place] [id number] Wharf Tender Helper: Calin Tapia MD Chloride [Moles/Vol] 102 mmol/L Normal 98-107 [facility] Comment on above: Performed By: #### U AX UMICAO #### [facility] [address] [place] [address] Wharf Tender Helper: Calin Tapia MD CO2 [Moles/Vol] 24 mmol/L Normal 20-31 [facility] Comment on above: Performed By: #### U AX, UMICAO #### [facility] [address] [place] [address] Wharf Tender Helper: Calin Tapia MD Creatinine [Mass/Vol] 0.6 mg/dL Normal 0.5-0.9 [facility] Comment on above: Performed By: #### U AXGIOVANNAICAO #### [facility] [address] [place] [address] Wharf Tender Helper: Calin Tapia MD GFR/1.73 sq M.predicted among non-blacks MDRD (S/P/Bld) [Vol rate/Area] mL/min/{1.73_m2} Normal >60 [facility] Comment on above: Result Comment: These results [...] renal tubular secretion. Performed By: #### U AXSHERRIO #### [facility] [address] [place] [address] Wharf Tender Helper: Clain Tapia MD Glucose [Mass/Vol] 91 mg/dL Normal 70-99 [facility] Comment on above: Performed By: #### U AXGIOVANNAICAO #### [facility] [address] [place] [address] Wharf Tender Helper: Calin Tapia MD Potassium [Moles/Vol] 3.7 mmol/L Normal 3.7-5.3 [facility] Comment on above: Performed By: #### U AX UMICAO #### [facility] [address] [place] [address] Wharf Tender Helper: Calin Tapia MD Protein [Mass/Vol] 7.0 g/dL Normal 6.4-8.3 [facility] Comment on above: Performed By: #### U AX, UMICAO #### [facility] [address] [place] [address] Wharf Tender Helper: Calin Tapia MD Sodium [Moles/Vol] 138 mmol/L Normal 135-144 [facility] Comment on above: Performed By: #### U AX, UMICAO #### [facility] [address] [place] [address] Wharf Tender Helper: Calin Tapia MD Urea nitrogen [Mass/Vol] 8 mg/dL Normal 6-20 [facility] Comment on above: Performed By: #### U AX, UMICAO #### [facility] [address] [place] [address] Wharf Tender Helper: Calin Tapia MD HCG Qualitative, Serumon HCG ( test) Ql Negative NEGATIVE [facility] Comment on above: Specimens with hCG l evels near the threshold of the test (25 mIU/mL) may give a negative or indeterminate result. In such cases, another test should be performed with a new specimen in 48-72 hours. If early is suspected clinically in this setting, correlation with quantitative serum b-hCG level is suggested. [facility] the use of plasma for this test. This has not been cleared or approved by the U.S. Food and Drug Administration. The FDA has determined that such clearance is not necessary. [facility] HCG Screen, Bloodon 01-11-20 24 HCG Screen, Blood Negative Normal NEG [facility] Comment on above: Result Comment: Spec imens with hCG levels near the threshold of the test (25 mIU/mL) may give a negative or indeterminate result. In such cases, another test should be performed with a new specimen in 48-72 hours. If early is suspected clinically in this setting, correlation with quantitative serum b-hCG level is suggested. [facility] has confirmed the use of plasma for this test. This has not been cleared or approved by the U.S. Food and Drug Administration. The FDA has determined that such clearance is not necessary. Performed By: #### U MAVIS CARDOSO #### [facility] [address] [place] [address] Wharf Tender Helper: Calin Tapia MD Lactic Acidon 01-11-2024 Lactate (BldV) [Moles/Vol] 1.5 mmol/L 0.5 - 2.2 mmol/L [facility] Lactate [Moles/Vol] 1.5 mmol/L Normal 0.5-2.2 [facility] Comment on above: Performed By: #### C ELPX #### [address] [id number] Wharf Tender Helper: John Mason MD #### CRP, CP, CDP #### [facility] [address] [place] [address] Wharf Tender Helper: Calin Tapia MD Lipaseon 01-11-2024 Lipase [Catalytic activity/Vol] 22 U/L 13 - 60 U/L [facility] Lipase [Catalytic activity/Vol] 22 U/L Normal 13-60 [facility] Comment on above: Performed By: #### SHERRI PANIAGUAO #### [facility] [address] [place] [address] [place] [address] Wharf Tender Helper: Calin Tapia MD No Panel Informationon 01-10 [facility] Trichomonas/Wet Prepon 01-10 Trichomonas/Wet Prep Specimen Descriptio n .VAGINA Direct Exam CLUE CELLS SEEN NO YEAST OBSERVED NO TRICHOMONAS SEEN Report Status FINAL 01/11/2024 Abnormal [facility] Comment on above: Performed By: #### C DP, MG, BMP, LIVP #### [facility] [address] [place], [place] [id number] Wharf Tender Helper: Calin Tapia MD Urinalysis w/ Microon 2023 Bilirubin, SemiQt,Ur Negative Normal NEG [facility] Comment on above: Performed By: #### U AX, UMICAO #### [facility] [address] [place], [place] [id number] Wharf Tender Helper: Calin Tapia MD Blood, Urine Negative Normal NEG [facility] Comment on above: Performed By: #### U AX, UMICAO #### [facility] [address] [place], [facility] Wharf Tender Helper: Calin Tapia MD Clarity (U) Clear Normal CLEAR [facility] Comment on above: Performed By: #### U AX, UMICAO #### [address] [place], [facility] Wharf Tender Helper: Calin Tapia MD Color (U) Yellow Normal YEL [facility] Comment on above: Performed By: #### U AX, UMICAO #### [address] [place], [place] [address] Wharf Tender Helper: Calin Tapia MD Epithelial cells LM Ql (Urine sed) 0 TO 2 Normal 0-25 [facility] Comment on above: Performed By: #### U AX, UMICAO #### [facility] [address] [place] [address] Dr[place], [facility] Wharf Tender Helper: Calin Tapia MD Glucose Ql (U) Negative Normal NEG [facility] Comment on above: Performed By: #### U AX, UMICAO #### [facility] [address] [place], [place] [id number] Wharf Tender Helper: Calin Tapia MD Ketones Ql (U) Negative Normal NEG [facility] Comment on above: Performed By: #### U AX, UMICAO #### [facility] [address] [place] [address] [address] [place] [id number] Wharf Tender Helper: Calin Tapia MD Leukocyte esterase Test strip Ql (U) Negative Normal NEG [facility] Comment on above: Performed By: #### U AX, UMICAO #### [facility] [address] [place], [place] [phone] Wharf Tender Helper: Calin Tapia MD Nitrite,Ur Negative Normal NEG [facility] Comment on above: Performed By: #### U AX, UMICAO #### [facility] [address] [place], [place] [address] Wharf Tender Helper: Calin Tapia MD PH,Ur 6.0 Normal 5.0-9.0 [facility] Comment on above: Performed By: #### U AX, UMICAO #### [address] [place], [place] [address] Wharf Tender Helper: Calin Tapia MD Protein Ql (U) Negative Normal NEG [facility] Comment on above: Performed By: #### U AX, UMICAO #### [facility] [address] [place] [address] Dr. [place], [place] [id number] Wharf Tender Helper: Calin Tapia MD Spec. [place],Ur 1.010 Normal 1.010-1.020 [facility] Comment on above: Performed By: #### U AX, UMICAO #### [facility] [address] [place], [place] [id number] Wharf Tender Helper: Calin Tapia MD Urine RBC's None Normal 0-2 [facility] Comment on above: Performed By: #### U AX, UMICAO #### [facility] [address] [place], [place] [address] Wharf Tender Helper: Calin Tapia MD Urine WBC's None Normal 0-5 [facility] Comment on above: Performed By: #### U AX, UMICAO #### [facility] [address] [place] [address] Wharf Tender Helper: Calin Tapia MD Urobilinogen,Ur Normal Normal 0.0-1.0 [facility] Comment on above: Performed By: #### U MAVIS CARDOSO #### [facility] [address] [place] [address] Wharf Tender Helper: Calin Tapia MD Urinalysis with Microscopico n 01-11-2024 Bilirubin Ql (U) Negative NEGATIVE [facility] Clarity (U) Clear Clear [facility] Color (U) Yellow Yellow [facility] Epithelial cells LM.HPF (Urine sed) [#/Area] 0 TO 2 [facility] Glucose Test strip (U) [Mass/Vol] Negative NEGATIVE mg/dL [facility] Hemoglobin Auto test strip Ql (U) Negative NEGATIVE [facility] Ketones (U) [Mass/Vol] Negative NEGATIVE mg/dL [facility] Leukocyte esterase Test strip Ql (U) Negative NEGATIVE [facility] Nitrite Ql (U) Negative NEGATIVE [facility] pH (U) 6.0 [pH] 5.0 - 9.0 [facility] Protein (U) [Mass/Vol] Negative NEGATIVE mg/dL [facility] RBC LM.HPF (Urine sed) [#/Area] None [facility] Specific gravity (U) [Rel density] 1.010 1.010 - 1.020 [facility] Urobilinogen Qn (U) Normal 0.0 - 1. 0 EU/dL [facility] WBC LM.HPF (Urine sed) [#/Area] None [facility] Wet prep, genitalon 01-11-20 Interpretation and review of laboratory results Abnormal [facility] Microorganism or agent identified Nom (Unsp spec) CLUE CELLS SEEN Abnormal [facility] Microorganism or agent identified Nom (Unsp spec) NO YEAST OBSERVED [facility] Microorganism or agent identified Nom (Unsp spec) NO TRICHOMONAS SEEN [facility] Specimen Description .[facility] Chlamydia/GC DNA, TPon 12-03 Chlamydia Probe, TP Negative Normal NEG [facility] Comment on above: Result Comment: CHLA [...] target. Performed By: #### C YTCGP #### [place] [id number] Wharf Tender Helper: John Mason MD Gonorrhea Probe, TP Negative Normal NEG [facility] Comment on above: Result Comment: NEIS [...] target. Performed By: #### C YTCGP #### [place] [address] Wharf Tender Helper: John Mason MD HPV DNA High Riskon 12-04-19 HPV Interp [facility] Comment on above: Result Comment: This test [...] other forensic purposes. Performed By: #### U AX, UMICAO #### [facility] [address] [place] [address] Wharf Tender Helper: Calin Tapia MD HPV Type 16 Not detected Normal [facility] Comment on above: Performed By: #### U AX, UMICAO #### [facility] [address] [place] [address] [place] [address] Wharf Tender Helper: Calin Tapia MD HPV Type 18 Not detected Normal [facility] Comment on above: Performed By: #### U AX, UMICAO #### [facility] [address] [place] [address] [place] [address] Wharf Tender Helper: Calin Tapia MD Other High Risk HPV Not detected [facility] Comment on above: Performed By: #### U AX, UMICAO #### [facility] [address] [place] [address] [place] [address] Wharf Tender Helper: Calin Tapia MD HPV DNA High Riskon 12-03-19 24 HPV Sample .THIN PREP [facility] Comment on above: Performed By: #### U AX, UMICAO #### [facility] [address] [place] [address] [place] [address] Wharf Tender Helper: Calin Tapia MD Source CERVICAL MATERIAL Normal [facility] Comment on above: Performed By: #### U AX, UMICAO #### [facility] [address] [place] [address] [place] [address] Wharf Tender Helper: Calin Tapia MD Cytology Reporton 12-02-2023 Cytology report Cyto stain.thin prep Doc (Cvx/Vag) (NOTE) Path Number: [id number] DIAGNOSIS Imaged ThinPrep Pap - Cervical (1 monolayer slide): Specimen Adequacy: Satisfactory for evaluation. - Endocervical/transfor mation zone component present. Descriptive Diagnosis: Negative for intraepithelial lesion or malignancy. Comments: Specimen was screened at [facility], [address] [address] [employer] Screener: CS Rescreened By: LR1 Electronically [...] or for other forensic purposes. Performed at [address] [address] ([phone] Source of Specimen: A: Imaged ThinPrep Pap - Cervical (1 monolayer slide) HPV Reflex?.............. ........HPV Regardless Clinical History LEEP: 07/30/2022 Tubal ligation: 03/2019 Z12.4 Encounter for screening for malignant neoplasm of cervix LMP: 11/13/2023 Processing Lab: [facility] [address] [place] [id number] Interpretation performed at [facility], [facility] [place] [address] This Pap Test has been evaluated with the assistance of the ThinPrep Pap Test Imaging System. The Pap smear is a screening test primarily for squamous epithelial lesions, which is subject to both false negative and false positive results. Your patient should be reminded to consult you immediately if she experiences any suspicious signs or symptoms, regardless of her Pap smear result. GYNECOLOGIC CYTOLOGY REPORT Patient Name: SARI MOULTON [facility] Rec: [id number] [facility] PATHOLOGISTS [facility] ANATOMIC PATHOLOGY [address] [place] [address]. [place], [place] [address] Normal [facility] UA w/Reflex Cultureon 2023 Bilirubin, SemiQt,Ur Negative Normal NEG [facility] Comment on above: Performed By: #### U AX, UMICAO #### [facility] [address] [place] [address] Wharf Tender Helper: Calin Tapia MD Blood, Urine Negative Normal NEG [facility] Comment on above: Performed By: #### U AX, UMICAO #### [facility] [address] [place] [address] Wharf Tender Helper: Calin Tapia MD Clarity (U) Clear Normal CLEAR [facility] Comment on above: Performed By: #### U AX, UMICAO #### [address] [place] [address] Wharf Tender Helper: Calin Tapia MD Color (U) Yellow Normal YEL [facility] Comment on above: Performed By: #### U AX, UMICAO #### [facility] [address] [place] [address] Wharf Tender Helper: Calin Tapia MD Glucose Ql (U) Negative Normal NEG [facility] Comment on above: Performed By: #### U AX, UMICAO #### [facility] [address] [place] [address] Wharf Tender Helper: Calin Tapia MD Ketones Ql (U) Negative Normal NEG [facility] Comment on above: Performed By: #### U AX, UMICAO #### [facility] [address] [place], [place] [id number] Wharf Tender Helper: Calin Tapia MD Leukocyte esterase Test strip Ql (U) Negative Normal NEG [facility] Comment on above: Performed By: #### U AX, UMICAO #### [facility] [address] [place], [place] [id number] Wharf Tender Helper: Calin Tapia MD Nitrite,Ur Negative Normal NEG [facility] Comment on above: Performed By: #### U AX, UMICAO #### [facility] [address] [place] [address] Dr[place], [facility] Wharf Tender Helper: Calin Tapia MD PH,Ur 7.0 Normal 5.0-9.0 [facility] Comment on above: Performed By: #### U AX, UMICAO #### [address] [place], [facility] Wharf Tender Helper: Calin Tapia MD Protein Ql (U) Negative Normal NEG [facility] Comment on above: Performed By: #### U AX, UMICAO #### [address] [place], [place] [address] Wharf Tender Helper: Calin Tapia MD Spec. [place],Ur 1.020 Normal 1.010-1.020 [facility] Comment on above: Performed By: #### U AX UMICAO #### [facility] [address] [place] [address] Dr[place], [facility] Wharf Tender Helper: Calin Tapia MD Urobilinogen,Ur Normal Normal 0.0-1.0 [facility] Comment on above: Performed By: #### U AX UMICAO #### [address] [place], [place] [address]83 Wharf Tender Helper: Calin Tapia MD Urinalysis,Microon 4 Amorphous sediment LM Ql (Urine sed) TRACE Abnormal NONE [facility] Comment on above: Performed By: #### U AX UMICAO #### [facility] [address] [place], [place] [id number] Wharf Tender Helper: Calin Tapia MD Bacteria 1+ Abnormal NONE [facility] Comment on above: Performed By: #### U AX, UMICAO #### [facility] [address] [place], [place] 8324383 Wharf Tender Helper: Calin Tapia MD Epithelial cells LM Ql (Urine sed) 0 TO 2 Normal 0-25 [facility] Comment on above: Performed By: #### U AX, UMICAO #### [facility] [address] [place] [address] [place], [place] [id number] Wharf Tender Helper: Calin Tapia MD Urine RBC's None Normal 0-2 [facility] Comment on above: Performed By: #### U AX, UMICAO #### [address] [place], [place] [address]83 Wharf Tender Helper: Calin Tapia MD Urine WBC's 0 TO 2 Normal 0-5 [facility] Comment on above: Performed By: #### U AX, UMICAO #### [address] [place], [place] [id number] Wharf Tender Helper: Calin Tapia MD HCG, ,Urineon 11-30 Beta HCG ( test) Ql (U) Negative Normal NEG [facility] Comment on above: Result Comment: Spec imens with hCG levels near the threshold of the test (25 mIU/mL) may give a negative or indeterminate result. In such cases, another test should be performed with a new specimen in 48-72 hours. If early is suspected clinically in this setting, correlation with quantitative serum b-hCG level is suggested. [facility] has confirmed the use of plasma for this test. This has not been cleared or approved by the U.S. Food and Drug Administration. The FDA has determined that such clearance is not necessary. Performed By: #### U AX, UMICAO #### [facility] [address] [place] [address] [place] [place], [place] 8[address]2483 Wharf Tender Helper: Calin Tapia MD UA w/Reflex Cultureon 2023 Bilirubin, SemiQt,Ur Negative Normal NEG [facility] Comment on above: Performed By: #### U AX, UMICAO #### [facility] [address] [place] [address] [place], [place] [phone] Wharf Tender Helper: Calin Tapia MD Blood, Urine Negative Normal NEG [facility] Comment on above: Performed By: #### U AX, UMICAO #### [address] [place], [place] [address]83 Wharf Tender Helper: Calin Tapia MD Clarity (U) SLIGHTLY CLOUDY Abnormal CLEAR [facility] Comment on above: Performed By: #### U AX, UMICAO #### [address] [place], [place] [address]486[address] Wharf Tender Helper: Calin Tapia MD Color (U) Yellow Normal YEL [facility] Comment on above: Performed By: #### U AX, UMICAO #### [address] [place], [place] [address]83 Wharf Tender Helper: Calin Tapia MD Glucose Ql (U) Negative Normal NEG [facility] Comment on above: Performed By: #### U AX, UMICAO #### [address] [place], [place] 3075683 Wharf Tender Helper: Calin Tapia MD Ketones Ql (U) Negative Normal NEG [facility] Comment on above: Performed By: #### U AX, UMICAO #### [address] [place], [place] 6[address]83 Wharf Tender Helper: Calin Tapia MD Leukocyte esterase Test strip Ql (U) TRACE Abnormal NEG [facility] Comment on above: Performed By: #### U AX, UMICAO #### [facility] [address] [place] [address] [place] [address] Wharf Tender Helper: Calin Tapia MD Nitrite,Ur Negative Normal NEG [facility] Comment on above: Performed By: #### U AX, UMICAO #### [facility] [address] [place] [address] [place], [place] [phone] Wharf Tender Helper: Calin Tapia MD PH,Ur 7.5 Normal 5.0-9.0 [facility] Comment on above: Performed By: #### U AX, UMICAO #### [facility] [address] [place] [address] [place] [address] Wharf Tender Helper: Calin Tapia MD Protein Ql (U) Negative Normal NEG [facility] Comment on above: Performed By: #### U AX, UMICAO #### [address] [place], [place] [address] Wharf Tender Helper: Calin Tapia MD Spec. [place],Ur 1.015 Normal 1.010-1.020 [facility] Comment on above: Performed By: #### U AX UMICAO #### [address] [place] [address] Wharf Tender Helper: Calin Tapia MD Urobilinogen,Ur Normal Normal 0.0-1.0 [facility] Comment on above: Performed By: #### U AX, UMICAO #### [facility] [address] [place] [address] Dr[place], [place] [address] Wharf Tender Helper: Calin Tapia MD Urinalysis,Microon 4 Amorphous sediment LM Ql (Urine sed) 3+ Abnormal [facility] Comment on above: Performed By: #### U AX, UMICAO #### [address] [place], [place] [address]34283 Wharf Tender Helper: Calin Tapia MD Bacteria TRACE Abnormal NONE [facility] Comment on above: Performed By: #### U AX UMICAO #### [facility] [address] [place], [place] [address]83 Wharf Tender Helper: Calin Tapia MD Epithelial cells LM Ql (Urine sed) 5 TO 10 Normal 0-25 [facility] Comment on above: Performed By: #### U AX, UMICAO #### [facility] [address] [place] [phone] Wharf Tender Helper: Calin Tapia MD Urine RBC's 0 TO 2 Normal 0-2 [facility] Comment on above: Performed By: #### U AX, UMICAO #### [facility] [address] [place], [place] [address]83 Wharf Tender Helper: Calin Tapia MD Urine WBC's 2 TO 5 Normal 0-5 [facility] Comment on above: Performed By: #### U AX, UMICAO #### [facility] [address] [place] [address]83 Wharf Tender Helper: Calin Tapia MD Basic Metabolic Profon 11-29 Anion gap [Moles/Vol] 9 mmol/L Normal 9-17 [facility] Comment on above: Performed By: #### C DP, MG, BMP, LIVP #### [address] [place], [place] 268[address]83 Wharf Tender Helper: Calin Tapia MD BUN/CRE Ratio 17 Normal 9-20 [facility] Comment on above: Performed By: #### C DP, MG, BMP, LIVP #### [facility] [address] [place] [address] Wharf Tender Helper: Calin Tapia MD Calcium [Mass/Vol] 9.0 mg/dL Normal 8.6-10.4 [facility] Comment on above: Performed By: #### C DP, MG, BMP, LIVP #### [facility] [address] [place] [address] [address] [phone] Wharf Tender Helper: Calin Tapia MD Chloride [Moles/Vol] 106 mmol/L Normal 98-107 [facility] Comment on above: Performed By: #### C DP, MG, BMP, LIVP #### [facility] [address] [place] [address] Wharf Tender Helper: Calin Tapia MD CO2 [Moles/Vol] 24 mmol/L Normal 20-31 [facility] Comment on above: Performed By: #### C DP, MG, BMP, LIVP #### [facility] [address] [place] [address] Wharf Tender Helper: Calin Tapia MD Creatinine [Mass/Vol] 0.7 mg/dL Normal 0.5-0.9 [facility] Comment on above: Performed By: #### C DP, MG, BMP, LIVP #### [facility] [address] [place] [address] Wharf Tender Helper: Calin Tapia MD GFR/1.73 sq M.predicted among non-blacks MDRD (S/P/Bld) [Vol rate/Area] mL/min/{1.73_m2} Normal >60 [facility] Comment on above: Result Comment: These results [...] affects renal tubular secretion. Performed By: #### C DP, MG, BMP, LIVP #### [facility] [address] [place] [address] Wharf Tender Helper: Calin Tapia MD Glucose [Mass/Vol] 84 mg/dL Normal 70-99 [facility] Comment on above: Performed By: #### C DP, MG, BMP, LIVP #### [facility] [address] [place] [address] [place], [place] 0559983 Wharf Tender Helper: Calin Tapia MD Potassium [Moles/Vol] 4.3 mmol/L Normal 3.7-5.3 [facility] Comment on above: Performed By: #### C DP, MG, BMP, LIVP #### [address] [place], [place] [phone] Wharf Tender Helper: Calin Tapia MD Sodium [Moles/Vol] 139 mmol/L Normal 135-144 [facility] Comment on above: Performed By: #### C DP, MG, BMP, LIVP #### [address] [place] [id number] Wharf Tender Helper: Calin Tapia MD Urea nitrogen [Mass/Vol] 12 mg/dL Normal 6-20 [facility] Comment on above: Performed By: #### C DP, MG, BMP, LIVP #### [address] [place], [facility] Wharf Tender Helper: Calin Tapia MD CBC with Diffon 11-30-2023 Abs. Basophil 0.10 k/uL Normal 0.00-0.20 [facility] Comment on above: Performed By: #### C DP, MG, BMP, LIVP #### [address] [place], [facility] Wharf Tender Helper: Calin Tapia MD Abs.Imm.Granulocyte <0.03 Normal 0.00-0.30 [facility] Comment on above: Performed By: #### C DP, MG, BMP, LIVP #### [address] [place], [place] [address]183 Wharf Tender Helper: Calin Tapia MD Abs.Neutrophil (Seg) 3.81 k/uL Normal 1.50-8.10 [facility] Comment on above: Performed By: #### C DP, MG, BMP, LIVP #### [address] [place], [facility] Wharf Tender Helper: Calin Tapia MD Basophils/100 WBC (Bld) 1 % Normal 0-2 [facility] Comment on above: Performed By: #### C DP, MG, BMP, LIVP #### [address] [place] [address] Wharf Tender Helper: Calin Tapia MD Eosinophils (Bld) [#/Vol] 0.29 10*3/uL Normal 0.00-0.44 [facility] Comment on above: Performed By: #### C DP, MG, BMP, LIVP #### [address] [place] [address] Wharf Tender Helper: Calin Tapia MD Eosinophils/100 WBC (Bld) 4 % Normal 1-4 [facility] Comment on above: Performed By: #### C DP, MG, BMP, LIVP #### [address] [place] [address] Wharf Tender Helper: Calin Tapia MD Erythrocyte distribution width (RBC) [Ratio] 12.0 % Normal 11.8-14.4 [facility] Comment on above: Performed By: #### C DP, MG, BMP, LIVP #### [address] [place] [address] Wharf Tender Helper: Calin Tapia MD Hematocrit (Bld) [Volume fraction] 35.5 % Low 36.3-47.1 [facility] Comment on above: Performed By: #### C DP, MG, BMP, LIVP #### [address] [place] [address] Wharf Tender Helper: Calin Tapia MD Hemoglobin (Bld) [Mass/Vol] 12.3 g/dL Normal 11.9-15.1 [facility] Comment on above: Performed By: #### C DP, MG, BMP, LIVP #### [address] [place] [address] Wharf Tender Helper: Calin Tapia MD Immature granulocytes/100 WBC (Bld) 0 % Normal 0 [facility] Comment on above: Performed By: #### C DP, MG, BMP, LIVP #### [address] [place], [facility] Wharf Tender Helper: Calin Tapia MD Lymphocytes (Bld) [#/Vol] 3.35 10*3/uL Normal 1.10-3.70 [facility] Comment on above: Performed By: #### C DP, MG, BMP, LIVP #### [address] [place] [address] Wharf Tender Helper: Calin Tapia MD Lymphocytes/100 WBC (Bld) 41 % Normal 24-43 [facility] Comment on above: Performed By: #### C DP, MG, BMP, LIVP #### [address] [place], [facility] Wharf Tender Helper: Calin Tapia MD MCH (RBC) [Entitic mass] 33.0 pg Normal 25.2-33.5 [facility] Comment on above: Performed By: #### C DP, MG, BMP, LIVP #### [address] [place] [address] Wharf Tender Helper: Calin Tapia MD MCHC (RBC) [Mass/Vol] 34.6 g/dL Normal 28.4-34.8 [facility] Comment on above: Performed By: #### C DP, MG, BMP, LIVP #### [address] [place] [address] Wharf Tender Helper: Calin Tapia MD MCV (RBC) [Entitic vol] 95.2 fL Normal 82.6-102.9 [facility] Comment on above: Performed By: #### C DP, MG, BMP, LIVP #### [facility] [address] [place], [place] [phone] Wharf Tender Helper: Calin Tapia MD Monocytes (Bld) [#/Vol] 0.67 10*3/uL Normal 0.10-1.20 [facility] Comment on above: Performed By: #### C DP, MG, BMP, LIVP #### [facility] [address] [place], [place] 3236083 Wharf Tender Helper: Calin Tapia MD Monocytes/100 WBC (Bld) 8 % Normal 3-12 [facility] Comment on above: Performed By: #### C DP, MG, BMP, LIVP #### [address] [place], [facility] Wharf Tender Helper: Calin Tapia MD Neutrophil (Seg) 46 % Normal 36-65 [facility] Comment on above: Performed By: #### C DP, MG, BMP, LIVP #### [address] [place], [facility] Wharf Tender Helper: Calin Tapia MD NRBC Automated 0.0 per 100 WBC Normal 0.0 [facility] Comment on above: Performed By: #### C DP, MG, BMP, LIVP #### [address] [place], [facility] Wharf Tender Helper: Calin Tapia MD Platelet mean volume (Bld) [Entitic vol] 9.3 fL Normal 8.1-13.5 [facility] Comment on above: Performed By: #### C DP, MG, BMP, LIVP #### [address] [place] [address] Wharf Tender Helper: Calin Tapia MD Platelets (Bld) [#/Vol] 236 10*3/uL Normal 138-453 [facility] Comment on above: Performed By: #### C DP, MG, BMP, LIVP #### [address] [place] [address] Wharf Tender Helper: Calin Tapia MD RBC (Bld) [#/Vol] 3.73 10*6/uL Low 3.95-5.11 [facility] Comment on above: Performed By: #### C DP, MG, BMP, LIVP #### [address] [place] [address] Wharf Tender Helper: Calin Tapia MD WBC (Bld) [#/Vol] 8.2 10*3/uL Normal 3.5-11.3 [facility] Comment on above: Performed By: #### C DP, MG, BMP, LIVP #### [address] [place] [address] Wharf Tender Helper: Calin Tapia MD TSH w/reflex to FT4on 2023 Thyroid Stim. Horm. 4.71 uIU/mL Normal 0.30-5.00 [facility] Comment on above: Performed By: #### C ELPX #### [facility] [address] [place] [address] Wharf Tender Helper: John Mason MD #### CRP, CP, CDP #### [address] [place] [address] Wharf Tender Helper: Calin Tapia MD NM HEPATOBILIARY SCAN W [...] 30-60 mins. Images were obtained in the BURKIN[place] projection and regions of interest were drawn [...] Carlos Kelley MD 11/24/23 Final result Normal [facility] H. pylori Antigenon 11-19-19 H. pylori Antigen Specimen Description .FECES Direct Exam NEGATIVE Report Status FINAL 11/19/2023 Normal [facility] Comment on above: Performed By: #### C ELPX #### [facility] [address] [place] [address] Wharf Tender Helper: John Mason MD #### CRP, CP, CDP #### [facility] [address] [place] [address] [place] [address] Wharf Tender Helper: Calin Tapia MD Basic Metabolic Profon 11-10 Anion gap [Moles/Vol] 12 mmol/L Normal 04-19 [facility] Comment on above: Performed By: #### C DP, MG, BMP, LIVP #### [address] [place] [address] Wharf Tender Helper: Calin Tapia MD BUN/CRE Ratio 16 Normal 04-22 [facility] Comment on above: Performed By: #### C DP, MG, BMP, LIVP #### [address] [place] [address] Wharf Tender Helper: Calin Tapia MD Calcium [Mass/Vol] 9.6 mg/dL Normal 8.6-10.4 [facility] Comment on above: Performed By: #### C DP, MG, BMP, LIVP #### [address] [place] [address] Wharf Tender Helper: Calin Tapia MD Chloride [Moles/Vol] 104 mmol/L Normal 98-107 [facility] Comment on above: Performed By: #### C DP, MG, BMP, LIVP #### [facility] [address] [place] [address] Wharf Tender Helper: Calin Tapia MD CO2 [Moles/Vol] 23 mmol/L Normal 20-31 [facility] Comment on above: Performed By: #### C DP, MG, BMP, LIVP #### [facility] [address] [place] [address] Wharf Tender Helper: Calin Tapia MD Creatinine [Mass/Vol] 0.5 mg/dL Normal 0.5-0.9 [facility] Comment on above: Performed By: #### C DP, MG, BMP, LIVP #### [facility] [address] [place] [address] Wharf Tender Helper: Calin Tapia MD GFR/1.73 sq M.predicted among non-blacks MDRD (S/P/Bld) [Vol rate/Area] mL/min/{1.73_m2} Normal >60 [facility] Comment on above: Result Comment: These results [...] affects renal tubular secretion. Performed By: #### C DP, MG, BMP, LIVP #### [facility] [address] [place] [address] Wharf Tender Helper: Calin Tapia MD Glucose [Mass/Vol] 111 mg/dL High 70-99 [facility] Comment on above: Performed By: #### C DP, MG, BMP, LIVP #### [facility] [address] [place] [address] [place] [place], [place] [id number] Wharf Tender Helper: Calin Tapia MD Potassium [Moles/Vol] 4.2 mmol/L Normal 3.7-5.3 [facility] Comment on above: Performed By: #### C DP, MG, BMP, LIVP #### [address] [place] [address] Wharf Tender Helper: Calin Tapia MD Sodium [Moles/Vol] 139 mmol/L Normal 135-144 [facility] Comment on above: Performed By: #### C DP, MG, BMP, LIVP #### [address] [place] [address] Wharf Tender Helper: Calin Tapia MD Urea nitrogen [Mass/Vol] 8 mg/dL Normal 6-20 [facility] Comment on above: Performed By: #### C DP, MG, BMP, LIVP #### [address] [place] [address] Wharf Tender Helper: Calin Tapia MD CBC with Diffon 11-11-2023 Abs. Basophil <0.03 Normal 0.00-0.20 [facility] Comment on above: Performed By: #### C DP, MG, BMP, LIVP #### [address] [place] [address] Wharf Tender Helper: Calin Tapia MD Abs. Eosinophil <0.03 Normal 0.00-0.44 [facility] Comment on above: Performed By: #### C DP, MG, BMP, LIVP #### [address] [place] [address] Wharf Tender Helper: Calin Tapia MD Abs.Imm.Granulocyte 0.04 k/uL Normal 0.00-0.30 [facility] Comment on above: Performed By: #### C DP, MG, BMP, LIVP #### [address] [place], [facility]83 Wharf Tender Helper: Calin Tapia MD Abs.Neutrophil (Seg) 7.69 k/uL Normal 1.50-8.10 [facility] Comment on above: Performed By: #### C DP, MG, BMP, LIVP #### [facility] [address] [place] [address] [place] [id number] Wharf Tender Helper: Calin Tapia MD Basophils/100 WBC (Bld) 0 % Normal 0-2 [facility] Comment on above: Performed By: #### C DP, MG, BMP, LIVP #### [address] [place] [id number] Wharf Tender Helper: Calin Tapia MD Eosinophils/100 WBC (Bld) 0 % Low 1-4 [facility] Comment on above: Performed By: #### C DP, MG, BMP, LIVP #### [address] [place], [place] [address] Wharf Tender Helper: Calin Tapia MD Erythrocyte distribution width (RBC) [Ratio] 12.0 % Normal 11.8-14.4 [facility] Comment on above: Performed By: #### C DP, MG, BMP, LIVP #### [address] [place] [id number] Wharf Tender Helper: Calin Tapia MD Hematocrit (Bld) [Volume fraction] 34.7 % Low 36.3-47.1 [facility] Comment on above: Performed By: #### C DP, MG, BMP, LIVP #### [address] [place] [id number] Wharf Tender Helper: Calin Tapia MD Hemoglobin (Bld) [Mass/Vol] 12.2 g/dL Normal 11.9-15.1 [facility] Comment on above: Performed By: #### C DP, MG, BMP, LIVP #### [address] [place] [address] Wharf Tender Helper: Calin Tapia MD Immature granulocytes/100 WBC (Bld) 0 % Normal 0 [facility] Comment on above: Performed By: #### C DP, MG, BMP, LIVP #### [address] [place] [id number] Wharf Tender Helper: Calin Tapia MD Lymphocytes (Bld) [#/Vol] 1.60 10*3/uL Normal 1.10-3.70 [facility] Comment on above: Performed By: #### C DP, MG, BMP, LIVP #### [address] [place] [address] Wharf Tender Helper: Calin Tapia MD Lymphocytes/100 WBC (Bld) 17 % Low 24-43 [facility] Comment on above: Performed By: #### C DP, MG, BMP, LIVP #### [address] [place] [address] Wharf Tender Helper: Calin Tapia MD MCH (RBC) [Entitic mass] 33.5 pg Normal 25.2-33.5 [facility] Comment on above: Performed By: #### C DP, MG, BMP, LIVP #### [address] [place] [id number] Wharf Tender Helper: Calin Tapia MD MCHC (RBC) [Mass/Vol] 35.2 g/dL High 28.4-34.8 [facility] Comment on above: Performed By: #### C DP, MG, BMP, LIVP #### [address] [place] [id number] Wharf Tender Helper: Calin Tapia MD MCV (RBC) [Entitic vol] 95.3 fL Normal 82.6-102.9 [facility] Comment on above: Performed By: #### C DP, MG, BMP, LIVP #### [address] [place] [address] Wharf Tender Helper: Calin Tapia MD Monocytes (Bld) [#/Vol] 0.32 10*3/uL Normal 0.10-1.20 [facility] Comment on above: Performed By: #### C DP, MG, BMP, LIVP #### [facility] [address] [place], [facility]83 Wharf Tender Helper: Calin Tapia MD Monocytes/100 WBC (Bld) 3 % Normal 3-12 [facility] Comment on above: Performed By: #### C DP, MG, BMP, LIVP #### [facility] [address] [place] [address] Wharf Tender Helper: Calin Tapia MD Neutrophil (Seg) 80 % High 36-65 [facility] Comment on above: Performed By: #### C DP, MG, BMP, LIVP #### [address] [place], [place] [address] Wharf Tender Helper: Calin Tapia MD NRBC Automated 0.0 per 100 WBC Normal 0.0 [facility] Comment on above: Performed By: #### C DP, MG, BMP, LIVP #### [address] [place], [facility]83 Wharf Tender Helper: Calin Tapia MD Platelet mean volume (Bld) [Entitic vol] 9.7 fL Normal 8.1-13.5 [facility] Comment on above: Performed By: #### C DP, MG, BMP, LIVP #### [address] [place], [facility]83 Wharf Tender Helper: Calin Tapia MD Platelets (Bld) [#/Vol] 279 10*3/uL Normal 138-453 [facility] Comment on above: Performed By: #### C DP, MG, BMP, LIVP #### [address] [place] [address] Wharf Tender Helper: Calin Tapia MD RBC (Bld) [#/Vol] 3.64 10*6/uL Low 3.95-5.11 [facility] Comment on above: Performed By: #### C DP, MG, BMP, LIVP #### [facility] [address] [place] [address] Wharf Tender Helper: Calin Tapia MD WBC (Bld) [#/Vol] 9.7 10*3/uL Normal 3.5-11.3 [facility] Comment on above: Performed By: #### C DP, MG, BMP, LIVP #### [facility] [address] [place] [address] Wharf Tender Helper: Calin Tapia MD CT HEAD WO CONTRASTon [...] Saran Naik MD 11/11/23 Final result Normal [facility] CT SOFT TISSUE NECK W CONTRA STon [...] Daniele Neves MD 11/11/23 Final result Normal [facility] Liver Profileon 11-11-2023 Albumin [Mass/Vol] 4.6 g/dL Normal 3.5-5.2 [facility] Comment on above: Performed By: #### C DP, MG, BMP, LIVP #### [facility] [address] [place], [place] [id number] Wharf Tender Helper: Calin Tapia MD Albumin/Glob Ratio 2.0 Normal 1.0-2.5 [facility] Comment on above: Performed By: #### C DP, MG, BMP, LIVP #### [facility] [address] [place], [place] [id number] Wharf Tender Helper: Calin Tapia MD Alkaline Phos 44 U/L Normal 35-104 [facility] Comment on above: Performed By: #### C DP, MG, BMP, LIVP #### [facility] [address] [place], [place] 5[address] Wharf Tender Helper: Calin Tapia MD ALT [Catalytic activity/Vol] 16 U/L Normal 5-33 [facility] Comment on above: Performed By: #### C DP, MG, BMP, LIVP #### [facility] [address] [place], [place] [id number] Wharf Tender Helper: Calin Tapia MD AST [Catalytic activity/Vol] 17 U/L Normal <32 [facility] Comment on above: Performed By: #### C DP, MG, BMP, LIVP #### [address] [place], [place] [id number] Wharf Tender Helper: Calin Tapia MD Bilirubin [Mass/Vol] 0.3 mg/dL Normal 0.3-1.2 [facility] Comment on above: Performed By: #### C DP, MG, BMP, LIVP #### [facility] [address] [place] [address] Dr[place], [facility]83 Wharf Tender Helper: Calin Tapia MD Bilirubin, Indirect Can not be calculated Normal 0.0-1 .0 [facility] Comment on above: Performed By: #### C DP, MG, BMP, LIVP #### [facility] [address] [place] [address] Wharf Tender Helper: Calin Tapia MD Bilirubin.indirect [Mass/Vol] mg/dL Normal <0.3 [facility] Comment on above: Performed By: #### C DP, MG, BMP, LIVP #### [facility] [address] [place], [place] [address] Wharf Tender Helper: Calin Tapia MD Protein [Mass/Vol] 6.9 g/dL Normal 6.4-8.3 [facility] Comment on above: Performed By: #### C DP, MG, BMP, LIVP #### [facility] [address] [place], [facility]83 Wharf Tender Helper: Calin Tapia MD Magnesiumon 11-11-2023 Magnesium [Mass/Vol] 2.1 mg/dL Normal 1.6-2.6 [facility] Comment on above: Performed By: #### C ELPX #### [place] [address] [place], [place] [id number] Wharf Tender Helper: John Mason MD #### CRP, CP, CDP #### [address] [place] [id number] Wharf Tender Helper: Calin Tapia MD CBC with Diffon 1 Abs. Basophil 0.05 k/uL Normal 0.00-0.20 [facility] Comment on above: Performed By: #### C DP, MG, BMP, LIVP #### [address] [place], [place] [address] Wharf Tender Helper: Calin Tapia MD Abs.Imm.Granulocyte <0.03 Normal 0.00-0.30 [facility] Comment on above: Performed By: #### C DP, MG, BMP, LIVP #### [address] [place], [facility]83 Wharf Tender Helper: Calin Tapia MD Abs.Neutrophil (Seg) 4.54 k/uL Normal 1.50-8.10 [facility] Comment on above: Performed By: #### C DP, MG, BMP, LIVP #### [address] [place], [facility]83 Wharf Tender Helper: Calin Tapia MD Basophils/100 WBC (Bld) 1 % Normal 0-2 [facility] Comment on above: Performed By: #### C DP, MG, BMP, LIVP #### [address] [place], [place] [id number] Wharf Tender Helper: Calin Tapia MD Eosinophils (Bld) [#/Vol] 0.15 10*3/uL Normal 0.00-0.44 [facility] Comment on above: Performed By: #### C DP, MG, BMP, LIVP #### [address] [place] [address] Wharf Tender Helper: Calin Tapia MD Eosinophils/100 WBC (Bld) 2 % Normal 1-4 [facility] Comment on above: Performed By: #### C DP, MG, BMP, LIVP #### [address] [place] [id number] Wharf Tender Helper: Calin Tapia MD Erythrocyte distribution width (RBC) [Ratio] 11.9 % Normal 11.8-14.4 [facility] Comment on above: Performed By: #### C DP, MG, BMP, LIVP #### [address] [place] [address] Wharf Tender Helper: Calin Tapia MD Hematocrit (Bld) [Volume fraction] 42.0 % Normal 36.3-47.1 [facility] Comment on above: Performed By: #### C DP, MG, BMP, LIVP #### [address] [place], [place] [id number] Wharf Tender Helper: Calin Tapia MD Hemoglobin (Bld) [Mass/Vol] 14.8 g/dL Normal 11.9-15.1 [facility] Comment on above: Performed By: #### C DP, MG, BMP, LIVP #### [address] [place] [address] Wharf Tender Helper: Calin Tapia MD Immature granulocytes/100 WBC (Bld) 0 % Normal 0 [facility] Comment on above: Performed By: #### C DP, MG, BMP, LIVP #### [facility] [address] [place] [address] Wharf Tender Helper: Calin Tapia MD Lymphocytes (Bld) [#/Vol] 1.56 10*3/uL Normal 1.10-3.70 [facility] Comment on above: Performed By: #### C DP, MG, BMP, LIVP #### [address] [place] [address] Wharf Tender Helper: Calin Tapia MD Lymphocytes/100 WBC (Bld) 23 % Low 24-43 [facility] Comment on above: Performed By: #### C DP, MG, BMP, LIVP #### [address] [place], [facility]83 Wharf Tender Helper: Calin Tapia MD MCH (RBC) [Entitic mass] 33.2 pg Normal 25.2-33.5 [facility] Comment on above: Performed By: #### C DP, MG, BMP, LIVP #### [address] [place] [address] Wharf Tender Helper: Calin Tapia MD MCHC (RBC) [Mass/Vol] 35.2 g/dL High 28.4-34.8 [facility] Comment on above: Performed By: #### C DP, MG, BMP, LIVP #### [address] [place] [address] Wharf Tender Helper: Calin Tapia MD MCV (RBC) [Entitic vol] 94.2 fL Normal 82.6-102.9 [facility] Comment on above: Performed By: #### C DP, MG, BMP, LIVP #### [address] [place] [address] Wharf Tender Helper: Calin Tapia MD Monocytes (Bld) [#/Vol] 0.46 10*3/uL Normal 0.10-1.20 [facility] Comment on above: Performed By: #### C DP, MG, BMP, LIVP #### [facility] [address] [place] [address] Wharf Tender Helper: Calin Tapia MD Monocytes/100 WBC (Bld) 7 % Normal 3-12 [facility] Comment on above: Performed By: #### C DP, MG, BMP, LIVP #### [facility] [address] [place] [address] Wharf Tender Helper: Calin Tapia MD Neutrophil (Seg) 67 % High 36-65 [facility] Comment on above: Performed By: #### C DP, MG, BMP, LIVP #### [address] [place], [facility]83 Wharf Tender Helper: Calin Tapia MD NRBC Automated 0.0 per 100 WBC Normal 0.0 [facility] Comment on above: Performed By: #### C DP, MG, BMP, LIVP #### [address] [place], [facility]83 Wharf Tender Helper: Calin Tapia MD Platelet mean volume (Bld) [Entitic vol] 9.4 fL Normal 8.1-13.5 [facility] Comment on above: Performed By: #### C DP, MG, BMP, LIVP #### [address] [place] [address] Wharf Tender Helper: Calin Tapia MD Platelets (Bld) [#/Vol] 315 10*3/uL Normal 138-453 [facility] Comment on above: Performed By: #### C DP, MG, BMP, LIVP #### [address] [place], [place] [id number] Wharf Tender Helper: Calin Tapia MD RBC (Bld) [#/Vol] 4.46 10*6/uL Normal 3.95-5.11 [facility] Comment on above: Performed By: #### C DP, MG, BMP, LIVP #### [facility] [address] [place] [address] Wharf Tender Helper: Calin Tapia MD WBC (Bld) [#/Vol] 6.8 10*3/uL Normal 3.5-11.3 [facility] Comment on above: Performed By: #### C DP, MG, BMP, LIVP #### [facility] [address] [place] [address] Wharf Tender Helper: Calin Tapia MD CT ABDOMEN PELVIS W [...] Calin Romero MD 11/08/23 Final result Normal [facility] Comp Metabolic Profon 2023 Albumin [Mass/Vol] 4.8 g/dL Normal 3.5-5.2 [facility] Comment on above: Performed By: #### C DP, MG, BMP, LIVP #### [address] [place] [address] Wharf Tender Helper: Calin Tapia MD Albumin/Glob Ratio 1.7 Normal 1.0-2.5 [facility] Comment on above: Performed By: #### C DP, MG, BMP, LIVP #### [address] [place], [place] [address]83 Wharf Tender Helper: Calin Tapia MD Alkaline Phos 53 U/L Normal 35-104 [facility] Comment on above: Performed By: #### C DP, MG, BMP, LIVP #### [address] [place] [address] Wharf Tender Helper: Calin Tapia MD ALT [Catalytic activity/Vol] 14 U/L Normal 5-33 [facility] Comment on above: Performed By: #### C DP, MG, BMP, LIVP #### [facility] [address] [place] [address] Wharf Tender Helper: Calin Tapia MD Anion gap [Moles/Vol] 12 mmol/L Normal 9-17 [facility] Comment on above: Performed By: #### C DP, MG, BMP, LIVP #### [facility] [address] [place] [address] [place] [address] Wharf Tender Helper: Calin Tapia MD AST [Catalytic activity/Vol] 17 U/L Normal <32 [facility] Comment on above: Performed By: #### C DP, MG, BMP, LIVP #### [facility] [address] [place], [place] [id number] Wharf Tender Helper: Calin Tapia MD Bilirubin [Mass/Vol] 0.7 mg/dL Normal 0.3-1.2 [facility] Comment on above: Performed By: #### C DP, MG, BMP, LIVP #### [facility] [address] [place], [place] 3897683 Wharf Tender Helper: Calin Tapia MD BUN/CRE Ratio 9 Normal 9-20 [facility] Comment on above: Performed By: #### C DP, MG, BMP, LIVP #### [address] [place], [place] [address]209883 Wharf Tender Helper: Calin Tapia MD Calcium [Mass/Vol] 9.5 mg/dL Normal 8.6-10.4 [facility] Comment on above: Performed By: #### C DP, MG, BMP, LIVP #### [address] [place], [place] [id number] Wharf Tender Helper: Calin Tapia MD Chloride [Moles/Vol] 107 mmol/L Normal 98-107 [facility] Comment on above: Performed By: #### C DP, MG, BMP, LIVP #### [facility] [address] [place] [address] [place], [place] [id number] Wharf Tender Helper: Calin Tapia MD CO2 [Moles/Vol] 22 mmol/L Normal 20-31 [facility] Comment on above: Performed By: #### C DP, MG, BMP, LIVP #### [address] [place], [place] 589[address]83 Wharf Tender Helper: Calin Tapia MD Creatinine [Mass/Vol] 0.7 mg/dL Normal 0.5-0.9 [facility] Comment on above: Performed By: #### C DP, MG, BMP, LIVP #### [address] [place] [address] Wharf Tender Helper: Calin Tapia MD GFR/1.73 sq M.predicted among non-blacks MDRD (S/P/Bld) [Vol rate/Area] mL/min/{1.73_m2} Normal >60 [facility] Comment on above: Result Comment: These results [...] affects renal tubular secretion. Performed By: #### C DP, MG, BMP, LIVP #### [address] [place] [address] Wharf Tender Helper: Calin Tapia MD Glucose [Mass/Vol] 101 mg/dL High 70-99 [facility] Comment on above: Performed By: #### C DP, MG, BMP, LIVP #### [address] [place] [address] Wharf Tender Helper: Calin Tapia MD Potassium [Moles/Vol] 3.7 mmol/L Normal 3.7-5.3 [facility] Comment on above: Performed By: #### C DP, MG, BMP, LIVP #### [address] [place] [address] Wharf Tender Helper: Calin Tapia MD Protein [Mass/Vol] 7.6 g/dL Normal 6.4-8.3 [facility] Comment on above: Performed By: #### C DP, MG, BMP, LIVP #### [address] [place] [address] Wharf Tender Helper: Calin Tapia MD Sodium [Moles/Vol] 141 mmol/L Normal 135-144 [facility] Comment on above: Performed By: #### C DP, MG, BMP, LIVP #### [facility] [address] [place] [address] Wharf Tender Helper: Calin Tapia MD Urea nitrogen [Mass/Vol] 6 mg/dL Normal 6-20 [facility] Comment on above: Performed By: #### C DP, MG, BMP, LIVP #### [facility] [address] [place] [address] Wharf Tender Helper: Calin Tapia MD HCG, ,Urineon 11-07 Beta HCG ( test) Ql (U) Negative Normal NEG [facility] Comment on above: Result Comment: Spec imens with hCG levels near the threshold of the test (25 mIU/mL) may give a negative or indeterminate result. In such cases, another test should be performed with a new specimen in 48-72 hours. If early is suspected clinically in this setting, correlation with quantitative serum b-hCG level is suggested. [facility] has confirmed the use of plasma for this test. This has not been cleared or approved by the U.[place]. Food and Drug Administration. The FDA has determined that such clearance is not necessary. Performed By: #### C ELPX #### [facility] [address] [place] [address] Wharf Tender Helper: John Mason MD #### CRP, CP, CDP #### [facility] [address] [place] [address] Wharf Tender Helper: Calin Tapia MD Lactic Acidon 9 Lactate [Moles/Vol] 1.2 mmol/L Normal 0.5-2.2 [facility] Comment on above: Performed By: #### C DP, MG, BMP, LIVP #### [facility] [address] [place] [address] Wharf Tender Helper: Calin Tapia MD Lipaseon 11-08-2023 Lipase [Catalytic activity/Vol] 20 U/L Normal 13-60 [facility] Comment on above: Performed By: #### C DP, MG, BMP, LIVP #### [facility] [address] [place], [place] 128[address]83 Wharf Tender Helper: Calin Tapia MD Urinalysis w/ Microon 2023 Bacteria TRACE Abnormal NONE [facility] Comment on above: Performed By: #### C ELPX #### [address] [address] Wharf Tender Helper: John Mason MD #### CRP, CP, CDP #### [facility] [address] [place], [place] [id number] Wharf Tender Helper: Calin Tapia MD Bilirubin, SemiQt,Ur Negative Normal NEG [facility] Comment on above: Performed By: #### C ELPX #### [address] [address] Wharf Tender Helper: John Mason MD #### CRP, CP, CDP #### [facility] [address] [place], [place] [address]83 Wharf Tender Helper: Calin Tapia MD Blood, Urine Negative Normal NEG [facility] Comment on above: Performed By: #### C ELPX #### [address] [address] Wharf Tender Helper: John Mason MD #### CRP, CP, CDP #### [facility] [address] [place] [address] Wharf Tender Helper: Calin Tapia MD Clarity (U) Clear Normal CLEAR [facility] Comment on above: Performed By: #### C ELPX #### [address] [address] Wharf Tender Helper: John Mason MD #### CRP, CP, CDP #### [address] [place] [address] Wharf Tender Helper: Calin Tapia MD Color (U) Yellow Normal YEL [facility] Comment on above: Performed By: #### C ELPX #### [place] [place] [address] Wharf Tender Helper: John Mason MD #### CRP, CP, CDP #### [address] [place] [address] Wharf Tender Helper: Calin Tapia MD Epithelial cells LM Ql (Urine sed) 2 TO 5 Normal 0-25 [facility] Comment on above: Performed By: #### C ELPX #### [address] [address] Wharf Tender Helper: John Mason MD #### CRP, CP, CDP #### [address] [place] [address] Wharf Tender Helper: Calin Tapia MD Glucose Ql (U) Negative Normal NEG [facility] Comment on above: Performed By: #### C ELPX #### [address] [address] Wharf Tender Helper: John Mason MD #### CRP, CP, CDP #### [address] [place] [address] Wharf Tender Helper: Calin Tapia MD Ketones Ql (U) Negative Normal NEG [facility] Comment on above: Performed By: #### C ELPX #### [address] [address] Wharf Tender Helper: John Mason MD #### CRP, CP, CDP #### [address] [place], [place] [id number] Wharf Tender Helper: Calin Tapia MD Leukocyte esterase Test strip Ql (U) Negative Normal NEG [facility] Comment on above: Performed By: #### C ELPX #### [address] [place] [address] Wharf Tender Helper: John Mason MD #### CRP, CP, CDP #### [address] [address] [place], [place] [id number] Wharf Tender Helper: Calin Tapia MD Nitrite,Ur Negative Normal [facility] Comment on above: Performed By: #### C ELPX #### [address] [address] Wharf Tender Helper: John Mason MD #### CRP, CP, CDP #### [address] [place] [id number] Wharf Tender Helper: Calin Tapia MD PH,Ur 6.5 Normal 5.0-9.0 [facility] Comment on above: Performed By: #### C ELPX #### [address] [address] Wharf Tender Helper: John Mason MD #### CRP, CP, CDP #### [address] [place] [address] Wharf Tender Helper: Calin Tapia MD Protein Ql (U) Negative Normal NEG [facility] Comment on above: Performed By: #### C ELPX #### [address] [address] Wharf Tender Helper: John Mason MD #### CRP, CP, CDP #### [address] [place] [id number] Wharf Tender Helper: Calin Tapia MD Spec. [place],Ur <1.005 Low 1.010-1.020 [facility] Comment on above: Performed By: #### C ELPX #### [address] [address] Wharf Tender Helper: John Mason MD #### CRP, CP, CDP #### [facility] [address] [place], [place] [id number] Wharf Tender Helper: Calin Tapia MD Urine RBC's None Normal 0-2 [facility] Comment on above: Performed By: #### C ELPX #### [address] [address] Wharf Tender Helper: John Mason MD #### CRP, CP, CDP #### [address] [place] [address] Wharf Tender Helper: Calin Tapia MD Urine WBC's 0 TO 2 Normal 0-5 [facility] Comment on above: Performed By: #### C ELPX #### [address] [address] Wharf Tender Helper: John Mason MD #### CRP, CP, CDP #### [facility] [address] [place] [address] [place] [address] Wharf Tender Helper: Calin Tapia MD Urobilinogen,Ur Normal Normal 0.0-1.0 [facility] Comment on above: Performed By: #### C ELPX #### [address] [address] Wharf Tender Helper: John Mason MD #### CRP, CP, CDP #### [facility] [address] [place] [address] [place] [address] Wharf Tender Helper: Calin Tapia MD CBC with Diffon 10-21-2023 Abs. Basophil 0.08 k/uL Normal 0.00-0.20 [facility] Comment on above: Performed By: #### C ELPX #### [address] [address] Wharf Tender Helper: John Mason MD #### CRP, CP, CDP #### [facility] [address] [place] [address] [place] [address] Wharf Tender Helper: Calin Tapia MD Abs.Imm.Granulocyte 0.03 k/uL Normal 0.00-0.30 [facility] Comment on above: Performed By: #### C ELPX #### [address] [id number] Wharf Tender Helper: John Mason MD #### CRP, CP, CDP #### [address] [place] [id number] Wharf Tender Helper: Calin Tapia MD Abs.Neutrophil (Seg) 5.70 k/uL Normal 1.50-8.10 [facility] Comment on above: Performed By: #### C ELPX #### [address] [id number] Wharf Tender Helper: John Mason MD #### CRP, CP, CDP #### [address] [place] [id number] Wharf Tender Helper: Calin Tapia MD Basophils/100 WBC (Bld) 1 % Normal 0-2 [facility] Comment on above: Performed By: #### C ELPX #### [address] [address] Wharf Tender Helper: John Mason MD #### CRP, CP, CDP #### [facility] [address] [place] [address] [place] [address] Wharf Tender Helper: Calin Tapia MD Eosinophils (Bld) [#/Vol] 0.22 10*3/uL Normal 0.00-0.44 [facility] Comment on above: Performed By: #### C ELPX #### [address] [id number] Wharf Tender Helper: John Mason MD #### CRP, CP, CDP #### [facility] [address] [place] [address] Wharf Tender Helper: Calin Tapia MD Eosinophils/100 WBC (Bld) 3 % Normal 1-4 [facility] Comment on above: Performed By: #### C ELPX #### [address] [address] Wharf Tender Helper: John Mason MD #### CRP, CP, CDP #### [facility] [address] [place] [address] Wharf Tender Helper: Calin Tapia MD Erythrocyte distribution width (RBC) [Ratio] 11.9 % Normal 11.8-14.4 [facility] Comment on above: Performed By: #### C ELPX #### [address] [address] Wharf Tender Helper: John Mason MD #### CRP, CP, CDP #### [facility] [address] [place] [address] Wharf Tender Helper: Calin Tapia MD Hematocrit (Bld) [Volume fraction] 40.4 % Normal 36.3-47.1 [facility] Comment on above: Performed By: #### C ELPX #### [address] [address] Wharf Tender Helper: John Mason MD #### CRP, CP, CDP #### [facility] [address] [place] [address] [place] [address] Wharf Tender Helper: Calin Tapia MD Hemoglobin (Bld) [Mass/Vol] 13.9 g/dL Normal 11.9-15.1 [facility] Comment on above: Performed By: #### C ELPX #### [address] [address] Wharf Tender Helper: John Mason MD #### CRP, CP, CDP #### [facility] [address] [place], [place] [id number] Wharf Tender Helper: Calin Tapia MD Immature granulocytes/100 WBC (Bld) 0 % Normal 0 [facility] Comment on above: Performed By: #### C ELPX #### [address] [address] Wharf Tender Helper: John Mason MD #### CRP, CP, CDP #### [facility] [address] [place] [id number] Wharf Tender Helper: Calin Tapia MD Lymphocytes (Bld) [#/Vol] 2.10 10*3/uL Normal 1.10-3.70 [facility] Comment on above: Performed By: #### C ELPX #### [address] [address] Wharf Tender Helper: John Mason MD #### CRP, CP, CDP #### [facility] [address] [place], [place] [id number] Wharf Tender Helper: Calin Tapia MD Lymphocytes/100 WBC (Bld) 25 % Normal 24-43 [facility] Comment on above: Performed By: #### C ELPX #### [address] [address] Wharf Tender Helper: John Mason MD #### CRP, CP, CDP #### [facility] [address] [place] [id number] Wharf Tender Helper: Calin Tapia MD MCH (RBC) [Entitic mass] 33.2 pg Normal 25.2-33.5 [facility] Comment on above: Performed By: #### C ELPX #### [address] [address] Wharf Tender Helper: John Mason MD #### CRP, CP, CDP #### [facility] [address] [place], [place] [id number] Wharf Tender Helper: Calin Tapia MD MCHC (RBC) [Mass/Vol] 34.4 g/dL Normal 28.4-34.8 [facility] Comment on above: Performed By: #### C ELPX #### [address] [address] Wharf Tender Helper: John Mason MD #### CRP, CP, CDP #### [facility] [address] [place] [address] [place], [place] [id number] Wharf Tender Helper: Calin Tapia MD MCV (RBC) [Entitic vol] 96.4 fL Normal 82.6-102.9 [facility] Comment on above: Performed By: #### C ELPX #### [address] [address] Wharf Tender Helper: John Mason MD #### CRP, CP, CDP #### [facility] [address] [place] [address] [place], [place] [id number] Wharf Tender Helper: Calin Tapia MD Monocytes (Bld) [#/Vol] 0.39 10*3/uL Normal 0.10-1.20 [facility] Comment on above: Performed By: #### C ELPX #### [address] [address] Wharf Tender Helper: John Mason MD #### CRP, CP, CDP #### [address] [place], [place] [id number] Wharf Tender Helper: Calin Tapia MD Monocytes/100 WBC (Bld) 5 % Normal 3-12 [facility] Comment on above: Performed By: #### C ELPX #### [address] [address] Wharf Tender Helper: John Mason MD #### CRP, CP, CDP #### [facility] [address] [place], [place] 1685883 Wharf Tender Helper: Calin Tapia MD Neutrophil (Seg) 66 % High 36-65 [facility] Comment on above: Performed By: #### C ELPX #### [address] [address] Wharf Tender Helper: John Mason MD #### CRP, CP, CDP #### [address] [place], [place] [id number] Wharf Tender Helper: Calin Tapia MD NRBC Automated 0.0 per 100 WBC Normal 0.0 [facility] Comment on above: Performed By: #### C ELPX #### [address] [address] Wharf Tender Helper: John Mason MD #### CRP, CP, CDP #### [address] [place], [place] [id number] Wharf Tender Helper: Calin Tapia MD Platelet mean volume (Bld) [Entitic vol] 9.3 fL Normal 8.1-13.5 [facility] Comment on above: Performed By: #### C ELPX #### [address] [address] Wharf Tender Helper: John Mason MD #### CRP, CP, CDP #### [address] [place], [place] 1800783 Wharf Tender Helper: Calin Tapia MD Platelets (Bld) [#/Vol] 273 10*3/uL Normal 138-453 [facility] Comment on above: Performed By: #### C ELPX #### [address] [address] Wharf Tender Helper: John Mason MD #### CRP, CP, CDP #### [address] [place], [place] [id number] Wharf Tender Helper: Calin Tapia MD RBC (Bld) [#/Vol] 4.19 10*6/uL Normal 3.95-5.11 [facility] Comment on above: Performed By: #### C ELPX #### [facility] [address] [place], [place] [id number] Wharf Tender Helper: John Mason MD #### CRP, CP, CDP #### [address] [place], [place] [id number] Wharf Tender Helper: Calin Tapia MD WBC (Bld) [#/Vol] 8.5 10*3/uL Normal 3.5-11.3 [facility] Comment on above: Performed By: #### C ELPX #### [place] [address] [place], [place] [id number] Wharf Tender Helper: John Mason MD #### CRP, CP, CDP #### [address] [place], [place] 0376083 Wharf Tender Helper: Calin Tapia MD CT ABDOMEN PELVIS W [...] Coy Sevilla MD 10/21/23 Final result Normal [facility] Comp Metabolic Profon 2023 Albumin [Mass/Vol] 4.7 g/dL Normal 3.5-5.2 [facility] Comment on above: Performed By: #### C ELPX #### [address] [place] [address] Wharf Tender Helper: John Mason MD #### CHRISTINE HENRANDEZ, CDP #### [facility] [address] [place] [address] [place] [address] Wharf Tender Helper: Calin Tapia MD Albumin/Glob Ratio 1.5 Normal 1.0-2.5 [facility] Comment on above: Performed By: #### C ELPX #### [address] [place] [address] Wharf Tender Helper: John Mason MD #### CRP CP, CDP #### [facility] [address] [place] [address] Wharf Tender Helper: Calin Tapia MD Alkaline Phos 58 U/L Normal 35-104 [facility] Comment on above: Performed By: #### C ELPX #### [address] [address] Wharf Tender Helper: John Mason MD #### CRP, CP, CDP #### [facility] [address] [place], [place] 8120083 Wharf Tender Helper: Calin Tapia MD ALT [Catalytic activity/Vol] 25 U/L Normal 5-33 [facility] Comment on above: Performed By: #### C ELPX #### [address] [address] Wharf Tender Helper: John Mason MD #### CRP, CP, CDP #### [address] [place] [address] Wharf Tender Helper: Calin Tapia MD Anion gap [Moles/Vol] 10 mmol/L Normal 9-17 [facility] Comment on above: Performed By: #### C ELPX #### [address] [address] Wharf Tender Helper: John Mason MD #### CRP, CP, CDP #### [address] [place] [address] Wharf Tender Helper: Calin Tapia MD AST [Catalytic activity/Vol] 23 U/L Normal <32 [facility] Comment on above: Performed By: #### C ELPX #### [address] [address] Wharf Tender Helper: John Mason MD #### CRP, CP, CDP #### [facility] [address] [place] [address] Wharf Tender Helper: Calin Tapia MD Bilirubin [Mass/Vol] 0.5 mg/dL Normal 0.3-1.2 [facility] Comment on above: Performed By: #### C ELPX #### [address] [address] Wharf Tender Helper: John Mason MD #### CRP, CP, CDP #### [facility] [address] [place], [place] 2136883 Wharf Tender Helper: Calin Tapia MD BUN/CRE Ratio 15 Normal 9-20 [facility] Comment on above: Performed By: #### C ELPX #### [address] [address] Wharf Tender Helper: John Mason MD #### CRP, CP, CDP #### [facility] [address] [place], [place] 5743483 Wharf Tender Helper: Calin Tapia MD Calcium [Mass/Vol] 8.8 mg/dL Normal 8.6-10.4 [facility] Comment on above: Performed By: #### C ELPX #### [address] [address] Wharf Tender Helper: John Mason MD #### CRP, CP, CDP #### [facility] [address] [place], [place] 7326083 Wharf Tender Helper: Calin Tapia MD Chloride [Moles/Vol] 103 mmol/L Normal 98-107 [facility] Comment on above: Performed By: #### C ELPX #### [address] [address] Wharf Tender Helper: John Mason MD #### CRP, CP, CDP #### [facility] [address] [place], [place] 2255783 Wharf Tender Helper: Calin Tapia MD CO2 [Moles/Vol] 26 mmol/L Normal 20-31 [facility] Comment on above: Performed By: #### C ELPX #### [address] [address] Wharf Tender Helper: John Mason MD #### CRP, CP, CDP #### [address] [place], [place] 9161283 Wharf Tender Helper: Calin Tapia MD Creatinine [Mass/Vol] 0.6 mg/dL Normal 0.5-0.9 [facility] Comment on above: Performed By: #### C ELPX #### [address] [address] Wharf Tender Helper: John Mason MD #### CRP CP, CDP #### [address] [place], [place] 3328283 Wharf Tender Helper: Calin Tapia MD GFR/1.73 sq M.predicted among non-blacks MDRD (S/P/Bld) [Vol rate/Area] mL/min/{1.73_m2} Normal >60 [facility] Comment on above: Result Comment: These results [...] affects renal tubular secretion. Performed By: #### C ELPX #### [address] [address] Wharf Tender Helper: John Mason MD #### CRPCHRISTINE, CDP #### [address] [place], [place] [id number] Wharf Tender Helper: Calin Tapia MD Glucose [Mass/Vol] 83 mg/dL Normal 70-99 [facility] Comment on above: Performed By: #### C ELPX #### [address] [address] Wharf Tender Helper: John Mason MD #### CRP, CP, CDP #### [address] [place], [place] 4154183 Wharf Tender Helper: Calin Tapia MD Potassium [Moles/Vol] 3.8 mmol/L Normal 3.7-5.3 [facility] Comment on above: Performed By: #### C ELPX #### [address] [address] Wharf Tender Helper: John Mason MD #### CRP, CP, CDP #### [facility] [address] [place] [address] Dr. [place], [place] [id number] Wharf Tender Helper: Calin Tapia MD Protein [Mass/Vol] 7.8 g/dL Normal 6.4-8.3 [facility] Comment on above: Performed By: #### C ELPX #### [address] [address] Wharf Tender Helper: John Mason MD #### CRP, CP, CDP #### [address] [place], [place] 9687083 Wharf Tender Helper: Calin Tapia MD Sodium [Moles/Vol] 139 mmol/L Normal 135-144 [facility] Comment on above: Performed By: #### C ELPX #### [address] [address] Wharf Tender Helper: John Mason MD #### CRP, CP, CDP #### [address] [place], [place] 4674883 Wharf Tender Helper: Calin Tapia MD Urea nitrogen [Mass/Vol] 9 mg/dL Normal 6-20 [facility] Comment on above: Performed By: #### C ELPX #### [address] [address] Wharf Tender Helper: John Mason MD #### CRP, CP, CDP #### [address] [place], [place] 9555483 Wharf Tender Helper: Calin Tapia MD HCG, ,Urineon 10-20 Beta HCG ( test) Ql (U) Negative Normal NEG [facility] Comment on above: Result Comment: Spec imens with hCG levels near the threshold of the test (25 mIU/mL) may give a negative or indeterminate result. In such cases, another test should be performed with a new specimen in 48-72 hours. If early is suspected clinically in this setting, correlation with quantitative serum b-hCG level is suggested. [facility] has confirmed the use of plasma for this test. This has not been cleared or approved by the U.S. Food and Drug Administration. The FDA has determined that such clearance is not necessary. Performed By: #### C ELPX #### [address] [address] Wharf Tender Helper: John Mason MD #### CHRISTINE HERNANDEZ, CDP #### [facility] [address] [place] [address] [place] [address] Wharf Tender Helper: Calin Tapia MD Lipaseon 10-21-2023 Lipase [Catalytic activity/Vol] 21 U/L Normal 13-60 [facility] Comment on above: Performed By: #### C ELPX #### [address] [address] Wharf Tender Helper: John Mason MD #### CRP, CP, CDP #### [facility] [address] [place] [address] [place] [address] Wharf Tender Helper: Calin Tapia MD UA w/Reflex Cultureon 2023 Bilirubin, SemiQt,Ur Negative Normal NEG [facility] Comment on above: Performed By: #### C ELPX #### [address] [address] Wharf Tender Helper: John Mason MD #### CRP, CP, CDP #### [facility] [address] [place] [address] Wharf Tender Helper: Calin Tapia MD Blood, Urine Negative Normal NEG [facility] Comment on above: Performed By: #### C ELPX #### [address] [address] Wharf Tender Helper: John Mason MD #### CRP, CP, CDP #### [facility] [address] [place] [address] [place] [address] Wharf Tender Helper: Calin Tapia MD Clarity (U) Clear Normal CLEAR [facility] Comment on above: Performed By: #### C ELPX #### [address] [address] Wharf Tender Helper: John Mason MD #### CRP, CP, CDP #### [facility] [address] [place] [address] Dr. [place], [place] [id number] Wharf Tender Helper: Calin Tapia MD Color (U) Yellow Normal YEL [facility] Comment on above: Performed By: #### C ELPX #### [address] [address] Wharf Tender Helper: John Mason MD #### CRP, CP, CDP #### [address] [place] [address] Wharf Tender Helper: Calin Tapia MD Glucose Ql (U) Negative Normal NEG [facility] Comment on above: Performed By: #### C ELPX #### [address] [address] Wharf Tender Helper: John Mason MD #### CRP, CP, CDP #### [facility] [address] [place] [address] Dr. [place], [place] [phone] Wharf Tender Helper: Calin Tapia MD Ketones Ql (U) Negative Normal NEG [facility] Comment on above: Performed By: #### C ELPX #### [address] [address] Wharf Tender Helper: John Mason MD #### CRP, CP, CDP #### [address] [place], [place] 2565183 Wharf Tender Helper: Calin Tapia MD Leukocyte esterase Test strip Ql (U) Negative Normal NEG [facility] Comment on above: Performed By: #### C ELPX #### [address] [address] Wharf Tender Helper: John Mason MD #### CRP, CP, CDP #### [address] [place], [place] 5830083 Wharf Tender Helper: Calin Tapia MD Nitrite,Ur Negative Normal NEG [facility] Comment on above: Performed By: #### C ELPX #### [address] [address] Wharf Tender Helper: John Mason MD #### CRP, CP, CDP #### [address] [place], [place] 2484583 Wharf Tender Helper: Calin Tapia MD PH,Ur 6.5 Normal 5.0-9.0 [facility] Comment on above: Performed By: #### C ELPX #### [address] [address] Wharf Tender Helper: John Mason MD #### CRP, CP, CDP #### [address] [place], [place] 6359483 Wharf Tender Helper: Calin Tapia MD Protein Ql (U) Negative Normal NEG [facility] Comment on above: Performed By: #### C ELPX #### [address] [address] Wharf Tender Helper: John Mason MD #### CRP, CP, CDP #### [address] [place], [place] 5449883 Wharf Tender Helper: Calin Tapia MD Spec. [place],Ur 1.020 Normal 1.010-1.020 [facility] Comment on above: Performed By: #### C ELPX #### [address] [address] Wharf Tender Helper: John Mason MD #### CRP, CP, CDP #### [facility] [address] [place], [place] [address] [address] Wharf Tender Helper: Calin Tapia MD Urobilinogen,Ur Normal Normal 0.0-1.0 [facility] Comment on above: Performed By: #### C ELPX #### [address] [address] Wharf Tender Helper: John Mason MD #### CRP, CP, CDP #### [facility] [address] [place], [place] [address] [address] Wharf Tender Helper: Calin Tapia MD Urinalysis,Microon 4 Bacteria TRACE Abnormal NONE [facility] Comment on above: Performed By: #### C YTCGP #### [address] [address] Wharf Tender Helper: John Mason MD Epithelial cells LM Ql (Urine sed) 0 TO 2 Normal 0-25 [facility] Comment on above: Performed By: #### C YTCGP #### [address] [address] Wharf Tender Helper: John Mason MD Mucus Strands TRACE Abnormal NONE [facility] Comment on above: Performed By: #### C YTCGP #### [address] [address] Wharf Tender Helper: John Mason MD Urine RBC's None Normal 0-2 [facility] Comment on above: Performed By: #### C YTCGP #### [address] [id number] Wharf Tender Helper: John Mason MD Urine WBC's 0 TO 2 Normal 0-5 [facility] Comment on above: Performed By: #### [facility] [place] #### [place] [employer] [address] [place] [address] Wharf Tender Helper: John Mason MD No Panel Informationon 05-23 No dictation [facility] Work Phone: [facility] Work Phone: Amylaseon 01-14-2022 Amylase [Catalytic activity/Vol] 43 U/L 28 - 100 U/L [facility] Basic Metabolic Panel w/ Ref riddhi to MGon 01-14-2022 Anion gap [Moles/Vol] 8 mmol/L Low 9 - 17 mmol/L [facility] Calcium [Mass/Vol] 9.1 mg/dL 8.6 - 10. 4 mg/dL [facility] Chloride [Moles/Vol] 109 mmol/L High 98 - 10 7 mmol/L [facility] CO2 [Moles/Vol] 22 mmol/L 20 - 31 mmol/L [facility] Creatinine [Mass/Vol] 0.61 mg/dL 0.50 - 0.90 mg/dL [facility] GFR >60 >60 mL/min [facility] GFR Non- >60 >60 mL/min [facility] Glucose [Mass/Vol] 97 mg/dL 70 - 99 mg/dL [facility] Interpretation and review of laboratory results Abnormal [facility] Potassium [Moles/Vol] 4.2 mmol/L 3.7 - 5.3 mmol/L [facility] Sodium [Moles/Vol] 139 mmol/L 135 - 144 mmol/L [facility] Urea nitrogen (BldV) [Mass/Vol] 9 mg/dL 6 - 20 mg/dL [facility] Urea nitrogen/Creatinine (Bld) [Mass ratio] 15 [facility] CBC with Auto Differentialon 01-14-2022 Absolute Eos # 0.06 [facility] Absolute Immature Granulocyte <0.03 [facility] Absolute Lymph # 1.39 [facility] Absolute [place] # 0.42 [facility] Basophils (Bld) [#/Vol] 0.05 10*3/uL [facility] Basophils/100 WBC (Bld) 1 % 0 - 2 % [facility] Eosinophils/100 WBC (Bld) 1 % 1 - 4 % [facility] Hematocrit (Bld) [Volume fraction] 35.6 % Low 36.3 - 47.1 % [facility] Hemoglobin (Bld) [Mass/Vol] 12.1 g/dL 11.9 - 15.1 g/dL [facility] Immature granulocytes/100 WBC (Bld) 0 % 0 [facility] Interpretation and review of laboratory results Abnormal [facility] Lymphocytes/100 WBC (Bld) 19 % Low 24 - 43 % [facility] MCH (RBC) [Entitic mass] 33.0 pg 25.2 - 33.5 pg [facility] MCHC (RBC) [Mass/Vol] 34.0 g/dL 28.4 - 34.8 g/dL [facility] MCV (RBC) [Entitic vol] 97.0 fL 82.6 - 102.9 fL [facility] Monocytes/100 WBC (Bld) 6 % 3 - 12 % [facility] NRBC Automated 0.0 0.0 per 100 WBC [facility] Platelet distribution width (Bld) [Ratio] 11.9 % 11.8 - 14.4 % [facility] Platelet mean volume (Bld) [Entitic vol] 9.6 fL 8.1 - 13.5 fL [facility] Platelets (Bld) [#/Vol] 214 10*3/uL [facility] RBC (Bld) [#/Vol] 3.67 10*6/uL Low 3.95 - 5.1 1 m/uL [facility] Segmented neutrophils/100 WBC (Bld) 73 % High 36 - 65 % [facility] Segs Absolute 5.34 [facility] WBC (Bld) [#/Vol] 7.3 10*3/uL [facility] HCG Qualitative, Serumon hCG Qual Negative NEGATIVE [facility] Comment on above: Specimens with hCG l evels near the threshold of the test (25 mIU/mL) may give a negative or indeterminate result. In such cases, another test should be performed with a new specimen in 48-72 hours. If early is suspected clinically in this setting, correlation with quantitative serum b-hCG level is suggested. [facility] has confirmed the use of plasma for this test. This has not been cleared or approved by the U.S. Food and Drug Administration. The FDA has determined that such clearance is not necessary. [facility] Hepatic Function Panelon Albumin [Mass/Vol] 4.8 g/dL 3.5 - 5.2 g/dL [facility] Albumin/Globulin [Mass ratio] 2.0 {ratio} [facility] ALP (Bld) [Catalytic activity/Vol] 49 U/L 35 - 104 U/L [facility] ALT [Catalytic activity/Vol] 12 U/L 5 - 33 U/L [facility] AST [Catalytic activity/Vol] 13 U/L <32 [facility] Bilirubin [Mass/Vol] 0.44 mg/dL 0.3 - 1 .2 mg/dL [facility] Bilirubin, Indirect Can not be calculated 0.00 - 1.00 mg/dL [facility] Bilirubin.indirect [Mass/Vol] mg/dL <0.31 mg/dL [facility] Free PSA/Total PSA [Mass fraction] 7.2 g/dL 6.4 - 8.3 g/dL [facility] Laboratory - Chemistry and C hemistry - challengeon 01-14-2022 GFR/1.73 sq M.predicted MDRD (S/P/Bld) [Vol rate/Area] [facility] Comment on above: Average GFR for 20-2 9 years old: 116 mL/min/1.73sq m Chronic Kidney Disease: <60 mL/min/1.73sq m Kidney failure: <15 mL/min/1.73sq m eGFR calculated using average adult body mass. Additional eGFR calculator available at: http://www.[employer]uroSave.com/multiple_crcl_2012.htm Stage 1: Some kidney damage normal GFR Stage 2: Mild kidney damage GFR 60-89 Stage 3: Moderate kidney damage GFR 30-59 Stage 4: Severe kidney damage GFR 15-29 Stage 5: Severe kidney damage GFR <15 ESRD - chronic treatment by dialysis or transplant Lipaseon 01-14-2022 Lipase [Catalytic activity/Vol] 15 U/L 13 - 60 U/L [facility] No Panel Informationon 01-14 [facility] Urinalysis with Microscopico n 01-14-2022 - [facility] Bacteria, UA TRACE Abnormal None [facility] Bilirubin Urine Negative NEGATIVE [facility] Color, UA Yellow Yellow [facility] Epithelial Cells UA 5 TO 10 [facility] Glucose, Ur Negative NEGATIVE [facility] Interpretation and review of laboratory results Abnormal [facility] Ketones Ql (U) Negative NEGATIVE [facility] Leukocyte esterase Test strip Ql (U) Negative NEGATIVE [facility] Nitrite, Urine Negative NEGATIVE [facility] pH, UA 7.0 [facility] Protein, UA Negative NEGATIVE [facility] RBC, UA 0 TO 2 [facility] Specific [place], UA 1.010 [facility] Turbidity UA Clear Clear [facility] Urine Hgb Negative NEGATIVE [facility] Urobilinogen, Urine Normal Normal [facility] WBC, UA 0 TO 2 [facility] US GALLBLADDER RUQon 020 Overall, unremarkabl e right upper quadrant abdominal ultrasound. [facility]- [place], [place] EXAMINATION: RIGHT UPPER QUADRANT [...] aorta is not visualized. IVC appears patent. [place], [place] Richard, Mhpn Incoming Radiant Results From [employer] - 10/11/2019 10:33 AM EDT EXAMINATION: RIGHT [...] Overall, unremarkable right upper quadrant abdominal ultrasound. [place] Operative Reporton 9 Operative Report Patient: Anna [...] in apparently stable condition. Electronically signed by Sun GARSIA Jolly Rodrigezye 04/18/19 13:23 EDT Normal [facility] Surgical Pathology Reporton 04-18-2019 Surgical Pathology Report [...] MD (Electronically signed by) Verified: 04/19/19 12:39 [facility] Comment on above: Performed By: #### S NM #### [facility] (DEFAULT) [address] [place] [address] HIV-1,2 Combo Ag/Ab, Reflexi ve Panelon 09-11-2018 HIV 1,2 Combo Antigen/Antibody Negative Normal Negative [facility] Comment on above: Order Comment: CALL doctor [id number] tel. [phone], fax results to [phone] Result Comment: The specimen was non-reactive for [...] [employer] (HCT/P). Performed by [employer], [address] [place] [id number] [email or web address], Jossue Valdez MD - Lab. Director Hepatitis Acute Panelon Hepatitis Profile Interp see below Normal [facility] Comment on above: Order Comment: CALL doctor [id number] tel. [phone], fax results to [phone] Result Comment: The acute hepatitis panel is negative. There is no evidence of acute hepatitis A, B, C. Hepatitis A Antibody (IgM) Interp Non-reactive Normal [facility] Comment on above: Order Comment: CALL doctor [id number] tel. [phone], fax results to [phone] Hepatitis B Core Ab IgM Interp Non-reactive Normal [facility] Comment on above: Order Comment: CALL doctor [id number] tel. [phone], fax results to [phone] Hepatitis B Surface Ag Interp Non-reactive Normal [facility] Comment on above: Order Comment: CALL doctor [id number] tel. [phone], fax results to [phone] Hepatitis C Antibody Interp Non-reactive Normal [facility] Comment on above: Order Comment: CALL doctor [id number] tel. [phone], fax results to [phone] Liver Panelon 09-09-2018 Albumin [Mass/Vol] 3.8 g/dL Normal 3.5-4.6 [facility] Comment on above: Order Comment: CALL doctor [id number] tel. [phone], fax results to [phone] Result Comment: Effe ctive: 09/09/2018 New reference range for this analyte has been established. ALP [Catalytic activity/Vol] 54 U/L Normal 40-130 [facility] Comment on above: Order Comment: CALL doctor [id number] tel. [phone], fax results to [phone] ALT [Catalytic activity/Vol] 7 U/L Normal 0-33 [facility] Comment on above: Order Comment: CALL doctor [id number] tel. [phone], fax results to [phone] AST [Catalytic activity/Vol] 9 U/L Normal 0-35 [facility] Comment on above: Order Comment: CALL doctor [id number] tel. [phone], fax results to [phone] Bilirubin [Mass/Vol] mg/dL Normal 0.2-0.7 [facility] Comment on above: Order Comment: CALL doctor [id number] tel. [phone], fax results to [phone] Result Comment: Effe ctive: 09/09/2018 New reference range for this analyte has been established. Bilirubin Indirect see below Normal 0.0-0.6 [facility] Comment on above: Order Comment: CALL doctor [id number] tel. [phone], fax results to [phone] Result Comment: Nena rect Bilirubin cannot be calculated since Total Bilirubin and/or Direct Bilirubin is below measurable range. Bilirubin.direct [Mass/Vol] mg/dL Normal 0.0-0.4 [facility] Comment on above: Order Comment: CALL doctor [id number] tel. [phone], fax results to [phone] Result Comment: Effe ctive: 09/09/2018 New reference range for this analyte has been established. Protein [Mass/Vol] 6.6 g/dL Normal 6.3-8.0 [facility] Comment on above: Order Comment: CALL doctor [id number] tel. [phone], fax results to [phone] Result Comment: Effe ctive: 09/09/2018 New reference range for this analyte has been established. Vital Signs Date Time Vital Sign Value Performing Clinician Mimii cindy 06-15-2024 16:54-0500 Body height 154.9 cm Tom Perkins MD Work Phone: [facility] 06-15-2024 16:54-0500 Body mass index (BMI) [Ratio] 20.78 kg/m2 Tom Perkins MD Work Phone: [facility] 06-15-2024 16:54-0500 Body temperature 98.29 [degF] Tom Perkins MD Work Phone: [facility] 06-15-2024 16:54-0500 Body weight 49.9 kg Tom Perkins MD Work Phone: [facility] 06-15-2024 16:54-0500 Diastolic blood pressure 61 mm[Hg] Tom Perkins MD Work Phone: [facility] 06-15-2024 16:54-0500 Heart rate 73 /min Tom Perkins MD Work Phone: [facility] 06-15-2024 16:54-0500 Respiratory rate 16 /min Tom Perkins MD Work Phone: [facility] 06-15-2024 16:54-0500 SaO2% (BldA) [Mass fraction] 100 % Tom Perkins MD Work Phone: [facility] 06-15-2024 16:54-0500 Systolic blood pressure 109 mm[Hg] Tom Perkins MD Work Phone: [facility] 06-10-2024 09:35-0500 Body height 154.9 cm Ashanti Quiñonez MD Work Phone: [facility] 06-10-2024 09:35-0500 Body mass index (BMI) [Ratio] 20.22 kg/m2 Ashanti Quiñonez MD Work Phone: [facility] 06-10-2024 09:35-0500 Body weight 48.53 kg Ashanti Quiñonez MD Work Phone: [facility] 06-10-2024 09:35-0500 Diastolic blood pressure 80 mm[Hg] Ashanti Quiñonez MD Work Phone: [facility] 06-10-2024 09:35-0500 Heart rate 70 /min Ashanti Quiñonez MD Work Phone: [facility] 06-10-2024 09:35-0500 SaO2% (BldA) [Mass fraction] 100 % Ashanti Quiñonez MD Work Phone: [facility] 06-10-2024 09:35-0500 Systolic blood pressure 130 mm[Hg] Ashanti Quiñonez MD Work Phone: [facility] 06-08-2024 00:51-0500 Body height 154.9 cm Siri Barrera DO Work Phone: [facility] 06-08-2024 00:51-0500 Body mass index (BMI) [Ratio] 20.78 kg/m2 Siri [facility]rera DO [facility] 06-08-2024 00:51-0500 Body weight 49.9 kg Siri Barrera DO Work Phone[facility] 06-08-2024 00:51-0500 Diastolic blood pressure 85 mm[Hg] Siri Barrera DO Work Phone[facility] 06-08-2024 00:51-0500 Heart rate 61 /min Siri Barrera DO Work Phone: [facility] [employer] 06-08-2024 00:51-0500 Respiratory rate 18 /min Siri Barrera DO Work Phone[facility] 06-08-2024 00:51-0500 SaO2% (BldA) [Mass fraction] 100 % Siri Barrera DO Work Phone[facility] 06-08-2024 00:51-0500 Systolic blood pressure 150 mm[Hg] Siri Barrera DO Work Phone: [facility] [employer] 05-31-2024 13:52-0400 Body height 50.2 cm Cony ROCKWELL-C Work Phone: [facility] 05-31-2024 13:52-0400 Body mass index (BMI) [Ratio] 194.03 kg/m2 Cony Lanier PA-C Work Phone: [facility] 05-31-2024 13:52-0400 Body weight 48.9 kg Cony Lanier PA-C Work Phone: [facility] 05-31-2024 13:52-0400 Diastolic blood pressure 63 mm[Hg] Cony Lanier PA-C Work Phone: [facility] 05-31-2024 13:52-0400 Systolic blood pressure 123 mm[Hg] Cony Lanier PA-C Work Phone: [employer] 05-28-2024 22:40-0400 Body height 154.9 cm Linn Pozo DO Work Phone: [employer] 05-28-2024 22:40-0400 Body mass index (BMI) [Ratio] 20.78 kg/m2 Linn Pozo DO Work Phone: [employer] 05-28-2024 22:40-0400 Body weight 49.9 kg Linn Pozo DO Work Phone: [employer] 05-28-2024 22:40-0400 Diastolic blood pressure 71 mm[Hg] Linn Pozo DO Work Phone: [employer] 05-28-2024 22:40-0400 Heart rate 71 /min Linn Pozo DO Work Phone: [employer] 05-28-2024 22:40-0400 Respiratory rate 18 /min Linn Pozo DO Work Phone: [employer] 05-28-2024 22:40-0400 SaO2% (BldA) [Mass fraction] 98 % Linn Pozo DO Work Phone: [employer] 05-28-2024 22:40-0400 Systolic blood pressure 115 mm[Hg] Linn Pozo DO Work Phone: [employer] 05-17-2024 13:09-0400 Body weight 50.17 kg Tete Hoang MD [facility]: [facility] 05-17-2024 13:09-0400 Diastolic blood pressure 69 mm[Hg] T[facility]ang MD [facility] 05-17-2024 13:09-0400 Heart rate 77 /min Tete Hoang MD Work [facility] 05-17-2024 13:09-0400 Systolic blood pressure 121 mm[Hg] Tete Hoang MD Work Phone: [facility] 05-07-2024 13:35-0400 Diastolic blood pressure [...] 99.61 [degF] Aiden Salcedo MD Work Phone: [facility] 05-03-2024 21:56-0400 Diastolic blood pressure 75 mm[Hg] Siri Barrera DO Work Phone: [facility] [employer] 05-03-2024 21:56-0400 Systolic blood pressure 124 mm[Hg] Siri Barrera DO Work Phone: [facility] 05-03-2024 21:53-0400 Body mass index (BMI) [Ratio] 21.35 kg/m2 Siri Barrera DO Work Phone: [employer] 05-03-2024 21:53-0400 Body temperature 97.7 [degF] Siri Barrera DO Work Phone: [facility] 05-03-2024 21:53-0400 Body weight 51.26 kg Siri Barrera DO Work Phone: [employer] 05-03-2024 21:53-0400 Heart rate 85 /min Siri Barrera DO Work Phone: [facility] 05-03-2024 21:53-0400 Respiratory rate 16 /min Siri Barrera DO Work Phone: [facility] 05-03-2024 21:53-0400 SaO2% (BldA) [Mass fraction] 100 % Siri Barrera DO Work Phone: [facility] 05-02-2024 02:19-0400 Heart rate 61 /min Linn Pozo DO Work Phone: [facility] 05-02-2024 02:19-0400 Respiratory rate 16 /min Linn Ellis DO Work Phone: [facility] 05-02-2024 02:19-0400 SaO2% (BldA) [Mass fraction] 98 % Linn Ellis DO Work Phone: [facility] 05-02-2024 01:19-0400 Diastolic blood pressure 41 mm[Hg] Linn Pozo DO Work Phone: [facility] 05-02-2024 01:19-0400 Systolic blood pressure 103 mm[Hg] Linn Pozo DO Work Phone: [facility] 05-01-2024 22:00-0400 Body temperature 97.81 [degF] Linn Ellis DO Work Phone: [facility] 04-24-2024 22:54-0400 Body temperature 97.59 [degF] Siri Barrera DO Work Phone: [facility] 04-24-2024 22:54-0400 Diastolic blood pressure 79 mm[Hg] Siri Barrera DO Work Phone: [facility] 04-24-2024 22:54-0400 Heart rate 73 /min Siri Barrera DO Work Phone: [facility] 04-24-2024 22:54-0400 Respiratory rate 17 /min Siri Barrera DO Work Phone: [employer] 04-24-2024 22:54-0400 SaO2% (BldA) [Mass fraction] 99 % Siri Barrera DO Work Phone: [employer] 04-24-2024 22:54-0400 Systolic blood pressure 111 mm[Hg] Siri Barrera DO Work Phone: [employer] 04-15-2024 23:56-0400 Body temperature 97.7 [degF] Blaise Delaney MD Work Phone: [employer] 04-15-2024 22:52-0400 Body height 154.9 cm Blaise Delaney MD Work Phone: [employer] 04-15-2024 22:52-0400 Body mass index (BMI) [Ratio] 22.67 kg/m2 Blaise Delaney MD Work Phone: [employer] 04-15-2024 22:52-0400 Body weight 54.43 kg Blaise Delaney MD Work Phone: [employer] 04-15-2024 22:52-0400 Diastolic blood pressure 80 mm[Hg] Blaise Delaney MD Work Phone: [employer] 04-15-2024 22:52-0400 Heart rate 89 /min Blaise Delaney MD Work Phone: [employer] 04-15-2024 22:52-0400 Respiratory rate 16 /min Blaise Delaney MD Work Phone: [employer] 04-15-2024 22:52-0400 SaO2% (BldA) [Mass fraction] 98 % Blaise Delaney MD Work Phone: [employer] 04-15-2024 22:52-0400 Systolic blood pressure 123 mm[Hg] Blaise Delaney MD Work Phone: [facility] 01-11-2024 12:13-0400 Body temperature 97.81 [degF] Chencho Pinedo MD [facility] [employer] 01-11-2024 12:13-0400 Diastolic blood pressure 84 mm[Hg] Chencho Pinedo MD [facility] [facility] [employer] 01-11-2024 12:13-0400 Heart rate 96 /min Chencho Pinedo MD [facility] 01-11-2024 12:13-0400 Respiratory rate 18 /min Chencho Pinedo MD [facility] [facility] [employer] 01-11-2024 12:13-0400 SaO2% (BldA) [Mass fraction] 100 % Chencho Pinedo MD [facility] 01-11-2024 12:13-0400 Systolic blood pressure 126 mm[Hg] Chencho Pinedo MD [facility] 05-23-2022 13:58-0400 Diastolic blood pressure 58 mm[Hg] Melissa Nazemi DO Work Phone: [facility] 05-23-2022 13:58-0400 Heart rate 56 /min Melissa Nazemi DO Work Phone: [facility] [employer] 05-23-2022 13:58-0400 Respiratory rate 16 /min Melissa Nazemi DO Work Phone: [facility] 05-23-2022 13:58-0400 SaO2% (BldA) [Mass fraction] 100 % Melissa Nazemi DO Work Phone: [facility] 05-23-2022 13:58-0400 Systolic blood pressure 100 mm[Hg] Melissa Nazemi DO Work Phone: [facility] [employer] 05-23-2022 13:22-0400 Body temperature 97.2 [degF] Melissa Nazemi DO Work Phone: [facility] [employer] 05-23-2022 12:00-0400 Body height 154.9 cm Melissa Nazemi DO Work Phone: [facility] [employer] 05-23-2022 12:00-0400 Body mass index (BMI) [Ratio] 21.35 kg/m2 Melissa Bridges DO Work Phone: [facility] [employer] 05-23-2022 12:00-0400 Body weight 51.26 kg Melissa Bridges DO Work Phone: [facility] [employer] 04-03-2022 02:51-0400 Body temperature 97.81 [degF] Oneyda Dickens MD Work Phone: [facility] [employer] 04-03-2022 02:51-0400 Diastolic blood pressure 75 mm[Hg] Oneyda Dickens MD Work Phone: [facility] [employer] 04-03-2022 02:51-0400 Heart rate 78 /min Oneyda Dickens MD Work Phone: [facility] [employer] 04-03-2022 02:51-0400 Respiratory rate 18 /min Oneyda Dickens MD Work Phone: [facility] [employer] 04-03-2022 02:51-0400 SaO2% (BldA) [Mass fraction] 100 % Oneyda Dickens MD Work Phone: [facility] [employer] 04-03-2022 02:51-0400 Systolic blood pressure 150 mm[Hg] Oneyda Dickens MD Work Phone: [facility] [employer] 01-14-2022 12:00-0400 Diastolic blood pressure 78 mm[Hg] Siri Barrera DO Work Phone: [facility] [employer] 01-14-2022 12:00-0400 Heart rate 84 /min Siri Barrera DO Work Phone: [facility] [employer] 01-14-2022 12:00-0400 Respiratory rate 16 /min Siri Barrera DO Work Phone: [facility] [employer] 01-14-2022 12:00-0400 SaO2% (BldA) [Mass fraction] 100 % Siri Barrera DO Work Phone: [employer] 01-14-2022 12:00-0400 Systolic blood pressure 136 mm[Hg] Siri Barrera DO Work Phone: [employer] 01-14-2022 09:55-0400 Body height 154.9 cm Siri Barrera DO Work Phone: [employer] 01-14-2022 09:55-0400 Body mass index (BMI) [Ratio] 22.67 kg/m2 Siri Barrera DO Work Phone: [employer] 01-14-2022 09:55-0400 Body temperature 99.5 [degF] Siri Barrera DO Work Phone: [employer] 01-14-2022 09:55-0400 Body weight 54.43 kg Siri Barrera DO Work Phone: [facility] [employer] 04-13-2017 15:27-0400 BMI (Body Mass Index) 21.15 kg/m2 Marialuisa Huerta [facility] Work Phone: 04-13-2017 15:27-0400 Body Temperature 99.1 [degF] Marialuisa Huerta [facility] Work Phone: 04-13-2017 15:27-0400 BP Diastolic 64 mm[Hg] Marialuisa Huerta [facility] Work Phone: 04-13-2017 15:27-0400 BP Systolic 106 mm[Hg] Marialuisa Huerta [facility] Work Phone: 04-13-2017 15:27-0400 Height 162.6 cm Marialuisa Huerta [facility] Work Phone: 04-13-2017 15:27-0400 Pulse (Heart Rate) 89 /min Marialuisa Huerta [facility] Work Phone: 04-13-2017 15:27-0400 Weight 55.88 kg Marialuisa Huerta [facility] Work Phone: 03-10-2017 15:00-0400 BMI (Body Mass Index) 20.25 kg/m2 Marialuisa Huerta [facility] Work Phone: 03-10-2017 15:00-0400 Body Temperature 98.2 [degF] Marialuisa Huerta [facility] Work Phone: 03-10-2017 15:00-0400 BP Diastolic 72 mm[Hg] Marialuisa Huerta [facility] Work Phone: 03-10-2017 15:00-0400 BP Systolic 113 mm[Hg] Marialuisa Huerta [facility] Work Phone: 03-10-2017 15:00-0400 Height 162.6 cm Marialuisa Huerta [facility] Work Phone: 03-10-2017 15:00-0400 Pulse (Heart Rate) 87 /min Marialuisa Huerta [facility] Work Phone: 03-10-2017 15:00-0400 Weight 53.52 kg Marialuisa Huerta [facility] Work Phone: Encounters Encounter Date Encounter Type Care Provider Facility Start: 06-24-2024 End: 06-24-2024 Telephone encounter Ellie Contreras LPN [facility] Start: 06-17-2024 End: 06-17-2024 Evaluation and management of inpatient ANGELIA Chirag MORENO [facility] Start: 06-15-2024 End: 06-15-2024 Emergency department patient visit TOM VASQUEZ [facility] ED Comment on above: Need for diphtheria- tetanus-pertussis (Tdap) vaccine (Primary Dx) Start: 06-10-2024 End: 06-10-2024 Office outpatient visit 25 minutes Ashanti Quiñonez MD Work Phone: [facility] Comment on above: Preop cardiovascular exam (Primary Dx); Elevated blood pressure reading; Family history of bicuspid aortic valve; Chest pain, musculoskeletal Start: 06-10-2024 End: 06-10-2024 Patient encounter status Ashanti Quiñonez MD Work Phone: [phone] [place] [address] Start: 06-10-2024 End: 06-10-2024 ambulatory [facility] Start: 06-10-2024 Encounter for preprocedural cardiovascular examination [facility] Start: 06-09-2024 End: 06-09-2024 Telephone encounter Aylin Wilson CMA [facility] Start: 06-08-2024 End: 06-08-2024 Telephone encounter [facility]dee Esqueda [facility] Start: 06-08-2024 End: 06-08-2024 Emergency department patient visit Siri Beard Liu DO Work Phone: [facility] ED Comment on above: Pain, dental (Primar y Dx) Start: 06-06-2024 End: 06-06-2024 Telephone encounter Ellie Contreras LPN [facility] Start: 05-31-2024 End: 05-31-2024 Office outpatient new 45 minutes Cony Lanier PA-C Work Phone: [facility] Comment on above: Dysphagia, unspecifi ed type (Primary Dx); Biliary dyskinesia; Gastroesophageal reflux disease without esophagitis; Right upper quadrant abdominal pain Start: 05-31-2024 End: 05-31-2024 ambulatory [facility] Start: 05-28-2024 End: 05-29-2024 Emergency department patient visit Linn Pozo DO Work Phone: [facility] ED Comment on above: Fall, initial encoun ter (Primary Dx); Contusion of left hand, initial encounter Start: 05-27-2024 End: 05-27-2024 Telephone encounter [facility] Start: 05-25-2024 End: 05-25-2024 Telephone encounter [facility] Start: 05-23-2024 End: 05-23-2024 Emergency department patient visit TOM PERKINS [facility] Start: 05-18-2024 End: 05-18-2024 Telephone encounter Ellie Contreras LPN [facility] Start: 05-17-2024 End: 05-17-2024 Office consultation new/estab patient 80 min Tete Hoang MD Work Phone: [facility] Comment on above: Biliary dyskinesia ( Primary Dx); Gastroesophageal reflux disease without esophagitis; Right upper quadrant abdominal pain; Costochondritis Start: 05-17-2024 End: 05-17-2024 ambulatory TETE HOANG [facility] Start: 05-16-2024 [facility] Start: 05-07-2024 End: 05-07-2024 Emergency department patient visit [facility] Start: 05-03-2024 End: 05-03-2024 Emergency department patient visit Siri Beard Liu GARSIA Work Phone: [facility] ED Comment on above: Pain of upper abdome n (Primary Dx) Start: 05-01-2024 End: 05-02-2024 Emergency department patient visit Linn Pozo DO Work Phone: [facility] ED Comment on above: Chest pain, unspecif ied type (Primary Dx) Start: 04-24-2024 End: 04-24-2024 Emergency department patient visit Siri Barrera Work Phone: [facility] ED Comment on above: Muscle pain (Primary Dx) Start: 04-24-2024 End: 04-24-2024 Emergency department patient visit [facility] Start: 04-15-2024 End: 04-16-2024 Emergency department patient visit Blaise Delaney MD Work Phone: [facility] ED Comment on above: Flank pain (Primary Dx) Start: 03-30-2024 End: 03-30-2024 Emergency department patient visit [facility] Start: 03-29-2024 End: 03-29-2024 ambulatory [facility] Start: 03-29-2024 End: 03-29-2024 Subsequent hospital visit by physician Tom Perkins MD Work Phone: [facility] Laboratory Comment on above: Other acute back josé miguel n; Hematuria, unspecified type Start: 03-18-2024 End: 03-18-2024 Emergency department patient visit [facility] Start: 01-22-2024 End: 01-22-2024 ambulatory [facility] Start: 01-22-2024 End: 01-22-2024 Subsequent hospital visit by physician Tom Perkins MD Work Phone: [facility] Comment on above: Temperature intolera nce Start: 01-16-2024 End: 01-16-2024 ambulatory [facility] Start: 01-15-2024 End: 01-15-2024 [facility] Start: 01-15-2024 End: 01-15-2024 Subsequent hospital visit by physician Tom Perkins MD Work Phone: [facility] Comment on above: Generalized abdomina l pain; Nasal and sinus discharge Start: 01-11-2024 End: 01-11-2024 Emergency department patient visit Chencho Pinedo MD [facility] ED Comment on above: Left lower quadrant abdominal pain (Primary Dx); BV (bacterial vaginosis) Start: 12-02-2023 End: 12-02-2023 ambulatory BRANDYN GHOSH [facility] Start: 11-30-2023 End: 12-01-2023 Emergency department patient visit [facility] Start: 11-30-2023 Encounter for other specified special examinations [facility] Start: 11-24-2023 End: 11-26-2023 ambulatory [facility] Start: 11-18-2023 End: 11-18-2023 ambulatory [facility] Start: 11-16-2023 End: 11-16-2023 ambulatory [facility] Start: 11-12-2023 ambulatory [facility] Start: 11-11-2023 End: 11-11-2023 Emergency department patient visit YAREIL COBB [facility] Start: 11-08-2023 End: 11-08-2023 Emergency department patient visit LATASHA ROSARIO [facility] Start: 10-26-2023 ambulatory SHEFALI KOO [facility] Start: 10-21-2023 End: 10-21-2023 Emergency department patient visit MARIALUISA HUERTA [facility] Start: 05-23-2022 End: 05-23-2022 Subsequent hospital visit by physician Melissa Bridges DO Work Phone: [facility] OR Comment on above: Epigastric pain Start: 05-13-2022 End: 05-13-2022 Subsequent hospital visit by physician Marialuisa Huerta DO Work Phone: [facility] Laboratory Comment on above: ASCUS with positive high risk HPV cervical Start: 04-03-2022 End: 04-03-2022 Emergency department patient visit Oneyda Dickens MD Work Phone: [facility] ED Comment on above: Otalgia of right ear (Primary Dx); Subacute otitis media, unspecified otitis media type Start: 03-26-2022 End: 03-26-2022 Subsequent hospital visit by physician [facility] Comment on above: Screening for malign ant neoplasm of cervix Start: 01-14-2022 End: 01-14-2022 Emergency department patient visit Siri Barrera DO Work Phone: [facility] ED Comment on above: Musculoskeletal back pain (Primary Dx) Start: 10-11-2019 End: 10-13-2019 Subsequent hospital visit by physician [facility] Ultrasound [facility]ound Comment on above: RUQ pain; Nausea; Bloating Start: 04-18-2019 End: 04-18-2019 Patient encounter procedure [facility]LLY [facility] Facility:[facility] Start: 04-12-2019 End: 04-13-2019 Patient encounter [facility] Start: 01-07-2019 End: 01-12-2019 Patient encounter status Siri Barrera DO Work Phone: [facility] Work Phone: Start: 09-06-2018 End: 09-06-2018 Emergency department patient visit CARMITANASEEMJHOAN Jorje HUERTA [facility] Start: 04-21-2017 Ambulatory [facility] Start: 04-13-2017 End: 04-13-2017 Office outpatient visit 25 minutes Marialuisa Huerta Work Phone: [facility] Comment on above: Maxillary sinusitis, unspecified chronicity (Primary Dx);Attention deficit hyperactivity disorder (ADHD), combined type;Tobacco abuse Start: 03-10-2017 Office/outpatient vi sit, est, level 4 Marialuisa Huerta Work Phone: [facility] Procedures Date Procedure Procedure Detail Performing Clinician Start: 06-10-2024 Ecg routine ecg w/least 12 lds w/i&r Ashanti Quiñonez MD Work Phone: Start: 05-28-2024 Radex hand minimum 3 views [...] Start: 05-01-2024 Radiologic exam chest single view Carmita Pozo DO Work Phone: Start: 05-01-2024 Ecg routine ecg w/least 12 lds w/i&r Linn Pozo DO Work Phone: Start: 04-15-2024 Urinalysis microscopic only Blaise Francis Jennifer san MD Work Phone: Start: 04-15-2024 Urine test visual color cmprsn meths Blaise Francis Rehana ALBARRAN Work Phone: Start: 04-15-2024 Comprehensive metabolic panel Blaise Francis Tammy george MD Work Phone: Start: 03-29-2024 Urnls dip stick/tablet reagent auto microscopy Brandyn Ghosh PROCEDURES NURSE - CNM Work Phone: Start: 01-22-2024 Assay of free thyroxine Brandynmagdi velasco PROCEDURES NURSE - CNM Work Phone: Start: 01-15-2024 ALLERGEN, FOOD, COMPREHENSIVE PROFILE 1 Roge Crespo MD Work Phone: Start: 01-15-2024 C-reactive protein Roge Crespo MD Work Phone: Start: 01-15-2024 Comprehensive metabolic panel Roge bailey MD Work Phone: Start: 01-11-2024 End: 01-11-2024 Smr prim src wet mount nfct agt Chencho Pinedo MD Start: 01-11-2024 Ct abdomen & pelvis w/contrast material Chencho Pinedo MD Start: 01-11-2024 Comprehensive metabolic panel Chencho Varma Start: 12-02-2023 Microscopic observation [Identifier] in Cervix by Cyto stain Chencho Pinedo MD Start: 05-23-2022 Colonoscopy Melissa I Nazemi DO Work Phone: Start: 05-23-2022 Esophagogastroduodenoscopy Melissa I Roopa joão DO Work Phone: Start: 03-26-2022 Microscopic observation [Identifier] in Cervix by Cyto stain Marialuisa Huerta DO Work Phone: Start: 01-14-2022 Urnls dip stick/tablet reagent auto microscopy Siri Beard Barrera DO Work Phone: Start: 01-14-2022 Assay of amylase Siri J Barrera DO Work Phone: Start: 01-14-2022 BASIC METABOLIC PANEL W/ REFLEX TO MG FOR LOW K Siri Barrera DO Work Phone: Start: 01-14-2022 Hepatic function panel Siricarlton Barrera D O Work Phone: Start: 10-11-2019 Us abdominal real time w/image limited Melissa Bridges Work Phone: Start: 04-23-2017 Microscopic observation [Identifier] in Cervix by Cyto stain Siri Barrera DO Work Phone: Plan of Treatment Date Care Activity Detail Author Start: 2044 Shingles Vaccine (1 of 2) Shingles Vaccine (1 of 2) [facility] [place] [place] Start: 06-15-2034 DTaP,Tdap and Td Vaccines (8 - Td or Tdap) DTaP,Tdap and Td Vaccines (8 - Td or Tdap) [facility] Start: 06-15-2034 DTaP/Tdap/Td vaccine (8 - Td or Tdap) DTaP/Tdap/Td vaccine (8 - Td or Tdap) [facility] Start: 01-14-2034 COVID-19 Vaccine (#1) COVID-19 Vaccine (#1) [facility] Comment on above: Postponed from 01/06/1995 (Unavailable) Start: 01-14-2034 COVID-19 Vaccine ( season) COVID-19 Vaccine ( season) [facility] Comment on above: Postponed from 04/03/2023 (Unavailable) Start: 05-20-2030 DTaP,Tdap and Td Vaccines (7 - Td or Tdap) DTaP,Tdap and Td Vaccines (7 - Td or Tdap) [facility] Start: 05-20-2030 DTaP/Tdap/Td vaccine (7 - Td or Tdap) DTaP/Tdap/Td vaccine (7 - Td or Tdap) [facility] Start: 05-20-2030 Tetanus vaccination [facility] Start: 12-01-2026 Screening for malignant neoplasm of cervix Pap smear [facility] Start: 06-17-2025 Adult BMI Screening Adult BMI Screening [facility] Start: 06-17-2025 Tobacco Screening Tobacco Screening [facility] Start: 06-13-2025 Depression Screen Depression Screen [facility] Start: 06-10-2025 Adult BMI Screening Adult BMI Screening [facility] Start: 06-01-2025 Depression Screen Depression Screen [facility] Start: 05-31-2025 Adult BMI Screening Adult BMI Screening [facility] Start: 05-31-2025 Tobacco Screening Tobacco Screening [facility] Start: 05-17-2025 Tobacco Screening Tobacco Screening [facility] Start: 03-26-2025 Screening for malignant neoplasm of cervix Pap smear [facility] Start: 01-14-2025 DTaP/Tdap/Td vaccine (6 - Tdap) DTaP/Tdap/Td vaccine (6 - Tdap) [facility] Comment on above: Postponed from 2005 (Patient Refus ed) Start: 12-25-2024 Depression Screen Depression Screen [facility] Start: 08-30-2024 End: 08-30-2024 Patient encounter procedure 08/30/2024 9:00 AM EST Off ice Visit [facility] [place] [address] Jolly Bender, DO [address] [place] [address] 6 wk post-op TL BA 01/05 [facility] GYNECOLOG[facility] Comment on above: 6 wk post-op TL BA 6/ Start: 08-25-2024 End: 08-25-2024 Admission to same day surgery center [facility] - Surgery Comment on above: LAPAROSCOPIC CHOLECYSTECTOMY [74883 (CPT )] Start: 08-25-2024 End: 08-25-2024 Laparoscopy surg cholecystectomy LAPAROSCOPIC CHOLECYSTECTOMY BILIARY HYPERKINESIA 08/25/2024 7:30 AM EST [facility] Start: 08-25-2024 Subsequent hospital visit by physician [facility] Surgery Start: 08-18-2024 End: 08-18-2024 Patient encounter procedure 08/18/2024 4:00 PM EST Off ice Visit [facility] Primary Care [address] [place] [address] [address] [place] [address] Tom Perkins MD [address] [place] [address] [address] [place] [address] fu abd pain [facility] Comment on above: fu abd pain Start: 08-11-2024 End: 08-11-2024 Patient encounter procedure 08/11/2024 1:45 PM EST Procedure visit [facility] On [address] [address] [facility] Start: 08-10-2024 End: 08-10-2024 Patient encounter procedure 08/10/2024 9:00 AM EST Off ice Visit [facility] [address] [place] [address] Bria Vance PA-C [address] [place] [address] 2 wk post-op BA 01/05 [facility] Comment on above: 2 wk post-op BA 6 Start: 08-09-2024 End: 08-09-2024 Patient encounter procedure 08/09/2024 10:30 AM EST Of fice Visit [facility] [address] [place] [address] Jolly Bender DO [address] [place] [address] 5 wk post-op [facility] BA 6, pt going to [place] 08/12 [facility] Comment on above: 5 wk post-op [facility] BA 6, pt going to [place] 08/12 Start: 07-25-2024 End: 07-25-2024 Admission to same day surgery center 07/25/2024 9:00 AM EST - 07/25/2024 11:00 AM EST Surgery [facility] [address] [place] [address] Jolly Bender, DO [address] [place] [address] HYSTERECTOMY VAGINAL LAPAROSCOPIC ROBOTIC ASSISTED POSS BAKARI OOPHORECTOMY, POSS LAP COLPOPEXY [facility] Comment on above: HYSTERECTOMY VAGINAL LAPAROSCOPIC ROBOTI C ASSISTED POSS BAKARI OOPHORECTOMY, POSS LAP COLPOPEXY Start: 07-25-2024 End: 07-25-2024 Laparoscopy w total hysterectomy uterus 250 gm/< HYSTERECTOMY VAGINAL LAPAROSCOPIC ROBOTIC ASSISTED Pelvic pain 07/25/2024 9:00 AM EST [facility] Start: 07-25-2024 Subsequent hospital visit by physician 07/25/2024 9:00 AM EST Hospital Encounter [facility] [address] [place] [address] Jolly Bender, DO [address] [place] [address] [facility] Start: 07-20-2024 End: 07-20-2024 Patient encounter procedure 07/20/2024 9:15 AM EST Off ice Visit [facility] [address] [place] [address] Bria Vance PA-C [address] [place] [address] 2 wk post-op BA 6/5 [facility] & [facility] Comment on above: 2 wk post-op BA 6 Start: 07-12-2024 End: 07-12-2024 Patient encounter procedure 07/12/2024 4:15 PM EST Off ice Visit [facility] [address] [place] [address] Jolly Bender, DO [address] [place] [address] discuss surgery, SHANNAN BA 01/05 [facility] Comment on above: discuss surgery, SHANNAN BA 01/05 Start: 07-04-2024 End: 07-04-2024 Admission to same day surgery center 07/04/2024 1:10 PM EST - 07/04/2024 3:10 PM EST Surgery [facility] [address] [place] [address] Jolly Bender, DO [address] [place] [address] HYSTERECTOMY VAGINAL LAPAROSCOPIC ROBOTIC ASSISTED POSS BAKARI OOPHORECTOMY, POSS LAP COLPOPEXY [facility] Comment on above: HYSTERECTOMY VAGINAL LAPAROSCOPIC ROBOTI C ASSISTED POSS BAKARI OOPHORECTOMY, POSS LAP COLPOPEXY Start: 07-04-2024 End: 07-04-2024 Laparoscopy w total hysterectomy uterus 250 gm/< HYSTERECTOMY VAGINAL LAPAROSCOPIC ROBOTIC ASSISTED Pelvic pain 07/04/2024 1:10 PM EST [facility] Start: 07-04-2024 Subsequent hospital visit by physician 07/04/2024 1:10 PM EST Hospital Encounter [facility] [address] [place] [address] TadJolly Mcrae, DO [address] [place] [address] [facility] Start: 06-23-2024 End: 06-23-2024 Admission to same day surgery center 06/23/2024 12:00 PM EST - 06/23/2024 2:00 PM EST Surgery [facility] Surgery [address] [place] [address] Tete Hoang MD [address] [address] LAPAROSCOPIC CHOLECYSTECTOMY [74737 (CPT )] [facility] Surgery Comment on above: LAPAROSCOPIC CHOLECYSTECTOMY [36248 (CPT )] Start: 06-23-2024 End: 06-23-2024 Laparoscopy surg cholecystectomy LAPAROSCOPIC CHOLECYSTECTOMY BILIARY HYPERKINESIA 06/23/2024 12:00 PM EST [facility] Start: 06-23-2024 Subsequent hospital visit by physician 06/23/2024 12:00 PM EST Hospital Encounter [facility] Surgery [address] [place] [address] Tete Hoang MD [address], [address] [id number] [facility] Surgery Start: 06-21-2024 End: 06-21-2024 Patient encounter procedure 06/21/2024 4:45 PM EST Off ice Visit [facility] [address] [place] [address] Jolly Bender, DO [address] [place] [address] discuss surgery, SHANNAN BA 01/05 [facility] Comment on above: discuss surgery, SHANNAN BA 6 Start: 06-14-2024 End: 06-14-2024 Patient encounter procedure 06/14/2024 8:45 AM EST Off ice Visit [address] [place] [address] Jolly Bender, DO [address] [place], [place] [id number] 6 wk post-op TLH BA 6 [facility] Comment on above: 6 wk post-op TL BA 6/ Start: 06-13-2024 End: 06-13-2024 Patient encounter procedure 06/13/2024 2:30 PM EST Procedure visit [facility] On [address] [address] [facility] Start: 06-10-2024 End: 06-10-2025 Echo complete W/O contrast Echo complete W/O contrast Echocardiography Routine Family history of bicuspid aortic valve Expected: 06/10/2024, Expires: 06/10/2025 [facility] Work Phone: Comment on above: Expected: 06/10/2024, Expires: Start: 06-10-2024 End: 06-10-2024 Patient encounter procedure 06/10/2024 9:45 AM EST Off ice Visit [facility] [address] [place] [address] Ashanti Quiñonez MD [address] [place] [address] [facility] Start: 06-09-2024 End: 06-09-2024 Patient encounter procedure 06/09/2024 11:00 AM EST Procedure visit [facility] On [address] [address] [facility] Start: 05-30-2024 End: 05-30-2024 Patient encounter procedure 05/30/2024 9:00 AM EDT Off ice Visit [facility] GENER[facility] SURGERY Part [address] [place] [address] Jose Gomes MD [address] [place] [address] nausea, abdominal pain [facility] Comment on above: nausea, abdominal pain Start: 05-18-2024 End: 05-18-2024 Patient encounter procedure 05/18/2024 8:15 AM EDT Off ice Visit [facility] [address] [place] [address] Bria Vance PA-C [address] [place] [address] 2 wk post-op BA 01/05 [facility] Comment on above: 2 wk post-op 01/05 Start: 05-09-2024 End: 05-09-2024 Admission to same day surgery center 05/09/2024 11:00 AM EDT - 05/09/2024 1:00 PM EDT Surgery [facility] OR [address] [place] [address] Jolly Bender, DO [address] [place] [address] HYSTERECTOMY VAGINAL LAPAROSCOPIC ROBOTIC ASSISTED POSS BAKARI OOPHORECTOMY, POSS LAP COLPOPEXY [facility] Comment on above: HYSTERECTOMY VAGINAL LAPAROSCOPIC ROBOTI C ASSISTED POSS BAKARI OOPHORECTOMY, POSS LAP COLPOPEXY Start: 05-09-2024 End: 05-09-2024 Laparoscopy w total hysterectomy uterus 250 gm/< HYSTERECTOMY VAGINAL LAPAROSCOPIC ROBOTIC ASSISTED Pelvic pain 05/09/2024 11:00 AM EDT [facility] Start: 05-09-2024 Subsequent hospital visit by physician 05/09/2024 11:00 AM EDT Hospital Encounter [facility] [address] [place] [address] Jolly Bender, DO [address] [place] [address] [facility] Start: 04-26-2024 End: 04-26-2024 Patient encounter procedure 04/26/2024 3:30 PM EDT Off ice Visit [facility] [address] [facility] [address] [place] [address] Jolly Bender, DO [address] [place] [address] discuss surgery, SHANNAN BA [address] [place] [address] OBSTETRICS & GYNECOLOGY Part [facility] Comment on above: discuss surgery, SHANNAN BA 01/05 Start: 04-03-2024 COVID-19 Vaccine ( season) COVID-19 Vaccine () [facility] Start: 04-03-2024 Influenza vaccination [facility] Start: 04-01-2024 End: 04-01-2024 Patient encounter procedure 04/01/2024 2:40 PM EDT Off ice Visit [facility] Primary Care [address] [place] [address] [address] [place] [address] Tom Perkins MD [address] [facility] [address] [place] [address] SOMETHING GOING ON WITH HER EAR [facility] Comment on above: SOMETHING GOING ON WITH HER EAR Start: 03-03-2024 Influenza vaccination [facility] Start: 02-25-2024 End: 02-25-2024 Patient encounter procedure 02/25/2024 3:20 PM EDT Off ice Visit [facility] [address] [place] [address] [address] [place] [address] Tom Perkins MD [address] [facility] [address] [place] [address] abd pain.f/u [facility] Comment on above: abd pain.f/u Start: 05-28-2022 End: 05-28-2022 Patient encounter procedure 05/28/2022 Procedure visit Obstetrics and Gynecology Brandyn Ghosh, PROCEDURES NURSE - CNM [address] [facility] [address] [place], [place] [id number] [facility] Start: 05-23-2022 End: 05-23-2022 Admission to same day surgery center 05/23/2022 Surgery IP Unit Melissa Bridges DO [address] [facility] [address] [place] [phone] EGD ESOPHAGOGASTRODUODENOSCOPY - WITH BIOPSY [facility] Comment on above: EGD ESOPHAGOGASTRODUODENOSCOPY - WITH BI OPSY Start: 05-23-2022 End: 05-23-2022 Egd transoral biopsy single/multiple [facility] Start: 05-23-2022 Subsequent hospital visit by physician 05/23/2022 Hospital Encounter IP Unit Melissa Bridges I, DO [address] [facility] [address] [place] [address] [facility] Start: 05-23-2022 End: 05-23-2022 Colon ca scrn not hi rsk ind COLORECTAL CANCER SCREENI NG, NOT HIGH RISK Epigastric pain 05/23/2022 12:50 PM EDT [facility] Start: 05-23-2022 End: 05-23-2022 Egd transoral biopsy single/multiple EGD ESOPHAGOGASTRODUODENOSCOPY Epigastric pain 05/23/2022 12:50 PM EDT [facility] Start: 04-03-2022 Influenza vaccination [facility] Start: 03-26-2022 End: 03-26-2022 Patient encounter procedure 03/26/2022 Office Visit Obstetrics and Gynecology Brandyn Ghosh, LITO - EUN [address] [facility] [address] [place] [address] [facility] Start: 03-03-2022 Influenza vaccination Flu vaccine (#1) [facility] Start: 01-15-2022 End: 01-15-2022 Patient encounter procedure 01/15/2022 Office Visit General Surgery Melissa Bridges I, [address] [facility] [facility] [address] [place] [address] [facility] GENER[facility] SURGERY [facility] Start: 04-23-2020 Cervical cancer screen Cervical cancer screen [facility] [place], [place] Start: 04-23-2020 Screening for malignant neoplasm of cervix Pap smear [facility] Start: 02-29-2020 End: 02-29-2020 Office Visit 02/29/2020 Office Visit Obstetrics and Gynecology Brandyn Ghosh, PROCEDURES NURSE - CNM [address] [place] [address] [phone] [facility] Start: 02-25-2020 Pneumococcal 0-64 years Vaccine (1 of 1 - PPSV23) Pneumococcal 0-64 years Vaccine (1 of 1 - PPSV23) [place], [place] Comment on above: Postponed from 2000 (Insurance / F inancial) Start: 04-03-2019 Influenza vaccination Flu vaccine (#1) [place], [place] Start: 04-03-2017 Influenza vaccination SEQUENTIAL INFLUENZA VACCINE (#1) [facility] Work Phone: Start: 04-03-2017 SEQUENTIAL INFLUENZA VACCINE (#1) SEQUENTIAL INFLUENZA VACCINE (#1) [facility] Work Phone: Start: 2015 Screening for malignant neoplasm of cervix CERVICAL CANCER SCREENING DISCUSSION [facility] Start: 2012 Adult BMI Follow Up Plan Adult BMI Follow Up Plan [facility] Start: 2012 Adult BMI Screening Adult BMI Screening [facility] Start: 2009 HIV screening HIV SCREENING DISCUSSION [facility] Start: 2006 Depression Screen Depression Screen [facility] Start: 2006 Depression Screening Depression Screening [facility] Start: 2005 DTaP/Tdap/Td vaccine (6 - Tdap) DTaP/Tdap/Td vaccine (6 - Tdap) [facility] Start: 2005 HPV vaccine (1 - 2-dose series) HPV vaccine (1 - 2-dose series) [place] Start: 2005 HPV VACCINES (1 of 3 - Female 3 Dose Series) HPV VACCINES (1 of 3 - Female 3 Dose Series) [facility] Work Phone: Start: 2005 Vaccination for human papillomavirus HPV VACCINES (1 of 3 - Female 3 Dose Series) [facility] Work Phone: Start: 2000 Pneumococcal 0-64 years Vaccine (1 - PCV) Pneumococcal 0-64 years Vaccine (1 - PCV) [facility] Start: 1999 COVID-19 Vaccine (1) COVID-19 Vaccine (1) [facility] Start: 1995 Varicella vaccine (1 of 2 - 2-dose childhood series) Varicella vaccine (1 of 2 - 2-dose childhood series) [facility] Start: 01-06-1995 COVID-19 Vaccine (#1) COVID-19 Vaccine (#1) [facility] Start: 1994 Cytopathology procedure, preparation of smear, genital source PAP SMEAR [facility] Work Phone: Start: 1994 Hepatitis C screening HEPATITIS C VIRUS SCREENING [facility] Start: 1994 Screening for malignant neoplasm of cervix PAP SMEAR [facility] Work Phone: Start: 1994 TETANUS EVERY 10 YR TETANUS EVERY 10 YR [facility] Work Phone: Start: 1994 Tetanus vaccination TETANUS EVERY 10 YR [facility] Work Phone: C.trachomatis N.gono rrhoeae DNA C.trachomatis N.gonorrhoeae DNA Microbiology STAT 01/11/2024 1:25 PM EDT [facility] Celiac Reflex Panel Celiac Refle x Panel Lab Routine Generalized abdominal pain 01/15/2024 2:19 PM EDT [employer] End: 01-15-2024 Culture, Nasal Culture, Nasal Microbiology Routine Nasal and sinus discharge 1 Occurrences starting 01/15/2024 until 01/15/2024 [facility] Comment on above: 1 Occurrences starting 01/15/2024 until 01/15/2024 End: 01-11-2024 Culture, Urine [facility] Comment on above: One Time for 1 Occurrences starting 01/01 until 01/11/2024 End: 03-29-2024 Culture, Urine [facility] Comment on above: 1 Occurrences starting 03/29/2024 until 03/29/2024 End: 01-15-2024 Culture, Wound [employer] Comment on above: Once for 1 Occurrences starting 01/15/20 until 01/15/2024 End: 03-26-2022 Cytopathology procedure, preparation of smear, genital source PAP SMEAR Lab Routine Screening for malignant neoplasm of cervix 1 Occurrences starting 03/26/2022 until 03/26/2022 [facility] it Phone: Comment on above: 1 Occurrences starting 03/26/2022 until 03/26/2022 EKG 12 Lead EKG 12 Lead ECG STAT 05/01/2024 10:14 PM EDT [employer] End: 05-31-2025 Esophagogastroduodenoscopy EGD GI Routine Right upper quadrant abdominal pain Dysphagia, unspecified type 1 Occurrences starting 05/31/2024 until 05/31/2025 [facility] Work Phone: Comment on above: 1 Occurrences starting 05/31/2024 until 05/31/2025 Food Comprehensive Panel Food Co mprehensive Panel Lab Routine Generalized abdominal pain 01/15/2024 2:19 PM EDT [employer] H. PYLORI DETECTION H. PYLORI DE TECTION Lab Routine Epigastric pain Release Upon Ordering for 1 Occurrences starting 05/23/2022 [facility] Phone: Comment on above: Release Upon Ordering for 1 Occurrences starting 05/23/2022 End: 05-23-2022 INITIATE PACU OXYGEN THERAPY PROTOCOL Initiate PACU Oxygen Therapy Protocol Respiratory Care Routine Continuous until discontinued starting 05/23/2022 [facility] Phone: Comment on above: Continuous until discontinued starting 1 End: 05-13-2022 Surgical Pathology Surgical Pathology Lab Routi ne ASCUS with positive high risk HPV cervical 1 Occurrences starting 05/13/2022 until 05/13/2022 [facility] Phone: Comment on above: 1 Occurrences starting 05/13/2022 until 05/13/2022 Surgical Pathology Surgical Path ology Lab Routine Epigastric pain Release Upon Ordering for 1 Occurrences starting 05/23/2022 [facility] Phone: Comment on above: Release Upon Ordering for 1 Occurrences starting 05/23/2022 End: 05-13-2022 SURGICAL PATHOLOGY REPORT SURGICAL PATHOLOGY REPORT La b Routine Once for 1 Occurrences starting 05/13/2022 until 05/13/2022 [facility] Work Phone: Comment on above: Once for 1 Occurrences starting 05/13/20 until 05/13/2022 End: 01-22-2024 Thyroid Peroxidase Antibody [facility] Comment on above: 1 Occurrences starting 01/22/2024 until 01/22/2024 XR Hand - left 3 Views XR HAND L EFT (MIN 3 VIEWS) Imaging STAT 05/28/2024 11:20 PM EDT [facility] Immunizations Immunization Date Immunization Notes Care Provider [facility] 06-15-2024 tetanus toxoid, redu saran diphtheria toxoid, and acellular pertussis vaccine, adsorbed Tom Perkins MD Work Phone: [facility] 05-20-2020 tetanus toxoid, redu saran diphtheria toxoid, and acellular pertussis vaccine, adsorbed Siri Barrera DO Work Phone: [facility] 11-10-2017 measles, mumps and rubella virus vaccine Mth Room [facility] 02-13-2000 diphtheria, tetanus toxoids and acellular pertussis vaccine, unspecified formulation Chencho Pinedo MD [facility] 02-13-2000 measles, mumps and rubella virus vaccine Chencho Pinedo MD [facility] 02-13-2000 poliovirus vaccine, inactivated Chencoh Pinedo MD [facility] 04-27-1997 diphtheria, tetanus toxoids and acellular pertussis vaccine, unspecified formulation Chencho Pinedo MD [facility] 04-27-1997 haemophilus influenz ae type b vaccine, conjugate unspecified formulation Chencho Pinedo MD [facility] 04-27-1997 measles, mumps and rubella virus vaccine Chencho Pinedo MD [facility] 03-05-1995 DTP-Haemophilus influenzae type b conjugate vaccine Chencho Pinedo MD [facility] 03-05-1995 hepatitis B vaccine, pediatric or pediatric/adolescent dosage Chencho Pinedo MD [facility] 03-05-1995 trivalent poliovirus vaccine, live, oral Chencho Ray MD [facility] 1994 DTP-Haemophilus influenzae type b conjugate vaccine Chencho Pinedo MD [facility] 1994 trivalent poliovirus vaccine, live, oral Chencho Pinedo MD [facility] 1994 DTP-Haemophilus influenzae type b conjugate vaccine Chencho Pinedo MD [facility] 1994 hepatitis B vaccine, pediatric or pediatric/adolescent dosage Chencho Pinedo MD [facility] 1994 trivalent poliovirus vaccine, live, oral Chencho Pinedo MD [facility] 1994 hepatitis B vaccine, pediatric or pediatric/adolescent dosage Chencho Pinedo MD [facility] Payers Date Payer Category Payer Medicaid [place] [employer] [place] [employer] [id number] 2023-Present [phone] [address] [place] [address] [id number] 2023 Medicaid HMO [id number] 2019 Unknown 2014 Unknown [facility] xxxxxxxxxxxx 2014-Present [phone] [address] [place] [address] xxxxxxxxxxxx [id number] 2003 Unknown [id number] 2.16.840.1.839289.3.249.13 1994 Unknown [id number] 2.16.840.1.645917.3.579.2.196 1994 Unknown [id number] 2.16.840.1.323062.3.579.2.196 1994 Unknown [id number] 2.16.840.1.347031.3.579.2.182 1994 Unknown [id number] 2.16.840.1.269469.3.579.2.903 1994 Unknown [id number] 2.16.840.1.445924.3.579.2.903 1994 Unknown [id number] 2.16.840.1.644078.3.579.2.983 1994 Unknown [id number] 2.16.840.1.955552.3.579.2.128 6 1994 Unknown [id number] 2.16.840.1.288874.3.579.2.128 6 1994 Unknown [id number] 2.16.840.1.066783.3.579.2.128 6 1994 Unknown [id number] 2.16.840.1.683372.3.579.2.128 6 1994 Unknown [id number] 2.16.840.1.609749.3.579.2.128 6 1994 Unknown [id number] 2.16.840.1.226467.3.579.2.128 6 1994 Unknown [id number] 2.16.840.1.297841.3.579.2.128 6 1994 Unknown [id number] 2.16.840.1.593641.3.579.2.173 1994 Unknown [id number] 2.16.840.1.041827.3.579.2.173 1994 Unknown [id number] 2.16.840.1.713476.3.579.2.173 1994 Unknown [id number] 2.16.840.1.296036.3.579.2.173 1994 Unknown [id number] 2.16.840.1.639927.3.579.2.173 1994 Unknown [id number] 2.16.840.1.878909.3.579.2.173 1994 Unknown [id number] 2.16.840.1.212116.3.579.2.173 1994 Unknown [id number] 2.16.840.1.171576.3.579.2.173 1994 Unknown [id number] 2.16.840.1.907354.3.579.2.173 1994 Unknown [id number] 2.16.840.1.160042.3.579.2.173 1994 Unknown [id number] 2.16.840.1.963009.3.579.2.173 1994 Unknown [id number] 2.16.840.1.265552.3.579.2.173 1994 Unknown [id number] 2.16.840.1.252960.3.579.2.173 1994 Unknown [id number] 2.16.840.1.229498.3.579.2.173 1994 Unknown [id number] 2.16.840.1.040405.3.579.2.173 1994 Unknown [id number] 2.16.840.1.947792.3.579.2.173 1994 Unknown [id number] 2.16.840.1.912830.3.579.2.173 1994 Unknown [id number] 2.16.840.1.571719.3.579.2.173 1994 Unknown [id number] 2.16.840.1.436804.3.579.2.173 1994 Unknown [id number] 2.16.840.1.779902.3.579.2.173 1994 Unknown [id number] 2.16.840.1.354648.3.579.2.173 1994 Unknown [id number] 2.16.840.1.090733.3.579.2.173 1994 Unknown [id number] 2.16.840.1.506866.3.579.2.173 1994 Unknown [id number] 2.16.840.1.114125.3.579.2.173 1994 Unknown [id number] 2.16.840.1.219676.3.579.2.128 6 1994 Unknown [id number] 2.16.840.1.774919.3.579.2.128 6 1994 Unknown [id number] 2.16.840.1.276811.3.579.2.128 6 Social History Date Type Detail Facility Start: 04-13-2017 End: 10-06-2019 Tobacco smoking status [facility] Current every day smoker [employer] Work Phone: Start: 04-13-2017 End: 06-10-2024 Cigarettes smoked current (pack per day) - Reported [facility] [employer] Start: 1995 Sex Assigned At Not on file [facility] Work Phone: Start: 01-01-2019 End: 01-01-2021 History of tobacco use Cigarette Smoker [place] Start: 10-06-2019 End: 05-23-2022 Alcohol intake Current non-drinker of alcohol (finding) [place] Start: 01-04-2022 End: 05-23-2022 Exposure to SARS-CoV-2 (event) Not sure [facility] [employer] Start: 03-11-2022 End: 05-17-2024 Tobacco smoking status VAIS Ex-smoker [facility] [employer] Start: 01-01-2019 End: 01-01-2021 History of tobacco use Current smoker [facility] [employer] Phone: Start: 03-11-2022 End: 05-17-2024 Tobacco use and exposure Smokeless tobacco non-user [facility] [employer] Phone: Start: 01-01-2019 End: 01-01-2021 History of tobacco use [facility] Start: 01-11-2024 End: 06-17-2024 Alcohol intake Ex-drinker (finding) [facility] Start: 11-11-2023 End: 06-10-2024 Alcohol Use Disorder Identification Test - Consumption [AUDIT-C] [facility] How often to you hav e a drink containing alcohol? Never [employer] How many standard dr inks containing alcohol do you have on a typical day? Patient does not drink [employer] Start: 04-24-2024 End: 05-03-2024 Alcoholic beverage intake Current drinker of alcohol (finding) [employer] How often to you hav e a drink containing alcohol? 4 or more times a week [employer] [employer] How many standard dr inks containing alcohol do you have on a typical day? 1 or 2 [employer] Start: 04-24-2024 Alcohol Comment socially [employer] Start: 05-07-2024 Tobacco smoking status VAIS Tobacco smoking consumption [facility] Start: 03-06-2015 Sex Female (finding) [facility] Clinical Notes 04-03-2022 to 06-24-2024 Telephone Encounter - Ellie Contreras LPN - 06/24/2024 8:16 AM ESTTelephone Encounter - Ellie Contreras LPN - 06/24/2024 8:16 AM Oniel Quiñonez MD - 06/10/2024 9:45 AM ESTPatient Instructions Note Date & Type Note Facility 06-24-2024 Miscellaneous Notes Patient has been cleared for surgery at low risk by her zone maintenance technician Dr. Quiñonez . Per Dr. Quiñonez note on 06/10/24 patient does need to get an echocardiogram done for bicuspid aortic valve screening but states this does not necessarily need to be done prior to surgery. Hse Manager spoke with Whitney with pre admission testing who states to encourage patient to get this done prior to surgery as sometimes even though zone maintenance technician states this does not lorraine to be done prior to surgery once anesthesia reviews patient's case they will require this to be done prior to surgery. Hse Manager spoke with patient to update her ands she will try to get this scheduled prior to surgery documented in this encounter [facility] 06-24-2024 Telephone encounter Note Patient has been cleared for surgery at low risk by her zone maintenance technician Dr. Quiñonez . Per Dr. Quiñonez note on 06/10/24 patient does need to get an echocardiogram done for bicuspid aortic valve screening but states this does not necessarily need to be done prior to surgery. Hse Manager spoke with Whitney with pre admission testing who states to encourage patient to get this done prior to surgery as sometimes even though zone maintenance technician states this does not lorraine to be done prior to surgery once anesthesia reviews patient's case they will require this to be done prior to surgery. Hse Manager spoke with patient to update her ands she will try to get this scheduled prior to surgery [facility] 06-10-2024 History of Presen t illness Narrative Sari Moulton Date of visit: 06/10/2024 Date of : 1995 Age: 28 y.o. Patient Active Problem List Diagnosis Gastroesophageal reflux disease without esophagitis Right upper quadrant abdominal pain Costochondritis No Known Allergies Current Outpatient Medications Medication Sig Dispense Refill cetirizine (ZyrTEC) 10 mg tablet Take 1 tablet (10 mg total) by mouth. diclofenac sodium (VOLTAREN ARTHRITIS PAIN) 1 % gel Apply 2 g topically in the morning and 2 g at noon and 2 g in the evening and 2 g before bedtime. 100 g 0 fluticasone propionate (FLONASE) 50 mcg/actuation nasal spray 1 spray. hyoscyamine (ANASPAZ,LEVSIN) 0.125 mg tablet Take 1 tablet (125 mcg total) by mouth every 4 (four) hours as needed. omeprazole (PriLOSEC) 20 mg capsule Take 1 capsule (20 mg total) by mouth in the morning and at bedtime. 60 capsule 3 sucralfate (CARAFATE) 1 gram tablet Take 1 tablet (1 g total) by mouth in the morning and 1 tablet (1 g total) at noon and 1 tablet (1 g total) in the evening and 1 tablet (1 g total) before bedtime. nicotine (NICODERM CQ) 21 mg/[address] 1 patch on the skin. No current facility-administered medications for this visit. Chief Complaint Patient presents with Pre-op Exam PREOP CLEARANCE DR HOANG GALLBLADDER SURGERY TBD AND DR MISHRA HYSTERECTOMY 07/04/[address] LANIER New Patient CARDIOLOGY CONSULTANT REFERRAL Chest Pain History of Present Illness 28-year-old female here for preoperative evaluation. She does not have significant cardiac history. She is scheduled for EGD next week then Hysterectomy and gallbladder removal in the next few months. 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 She does not have any limitations. She reports Right sided chest pain, started a couple months, not related to activity sometimes postprandial reproducible. No family history of early CAD or of sudden cardiac , she does have a sister with bicuspid aortic valve (half-sister they have the same dad but not the same mother) Past Medical History: Diagnosis Date Pelvic congestion syndrome No data recorded No data recorded No data recorded Past Surgical History: Procedure Laterality Date ESOPHAGOGASTRODUODENOSCOPY OTHER SURGICAL HISTORY tubal removal Family History Problem Relation Age of Onset COPD Mother Hypertension Father Colon cancer Maternal Grandmother Social History Socioeconomic History Marital status: Single Spouse name: Not on file Number of children: Not on file Years of education: Not on file Highest education level: Not on file Occupational History Not on file Tobacco Use Smoking status: Former Types: Cigarettes Smokeless tobacco: Never Vaping Use Vaping status: Never Used Substance and Sexual Activity Alcohol use: Not Currently Drug use: Never Sexual activity: Not on file Other Topics Concern Caffeine Use Yes Social History Narrative Not on file Social Drivers of Health Financial Resource Strain: Not on file Food Insecurity: No Food Insecurity (06/10/2024) Hunger Screening Food Insecurity - Worry: Never True Food Insecurity - Inability: Never True Transportation Needs: Not on file Physical Activity: Sufficiently Active (01/01/2024) Received from [facility] Exercise Vital Sign Days of Exercise per Week: 6 days Minutes of Exercise per Session: 150+ min Stress: Not on file Social Connections: Not on file Interpersonal Safety: Not on file Housing Instability: Not on file Review of Systems Review of Systems Constitutional: Negative. HENT: Negative. Eyes: Negative. Respiratory: Negative. Hematologic/Lymphatic: Bruises/bleeds easily. Skin: Negative. Musculoskeletal: Positive for back pain, joint swelling and muscle weakness. Gastrointestinal: Negative. Neurological: Positive for headaches and numbness. Psychiatric/Behavioral: Negative. Allergic/Immunologic: Positive for environmental allergies. CARDIOVASCULAR: Please review HPI. Physical Examination General appearance: Alert, oriented and cooperative. In no acute distress. Skin: Warm and dry to touch. Head: Normocephalic, without obvious abnormality, atraumatic. Ears, Nose, Mouth, Throat: Throat clear without erythema or exudate. Dentition intact. Eyes: Conjunctivae unremarkable, EOM intact. Neck: No JVD, No carotid bruit. Neck supple, trachea midline. Respiratory: Clear to auscultation bilaterally, no use of accessory muscles. Cardiovascular: RRR with normal S1 and S2 with no murmurs. Gastrointestinal: Soft, non-tender. Bowel sounds normal. Musculoskeletal: No peripheral edema. Neurologic: Oriented to time, person and place, affect appropriate. No focal/major motor defects noted. Psychiatric: Appropriate mood, memory and judgement. VITAL SIGNS: BP 130/80 (BP Site: Left Arm, BP Postition: Sitting) Pulse 70 Ht 154.9 cm (5' 1 ) Wt 48.5 kg (107 lb) SpO2 100% BMI 20.22 kg/m No orders of the defined types were placed in this encounter. There are no discontinued medications. IMPRESSIONS/PLAN 1. Preop cardiovascular exam - POCT EKG 2. Elevated blood pressure reading 3. Family history of bicuspid aortic valve - Echo complete W/O contrast; Future 4. Chest pain, musculoskeletal -- her chest pain is musculoskeletal, she is very active more than 8 METS functional capacity without true cardiac symptoms, EKG normal variant, exam unremarkable. She has a low cardiac preoperative risk and can proceed without further testing required. -- she needs an echocardiogram for bicuspid aortic valve screening. This does not necessarily need to be done prior to her surgeries. -- elevated blood pressure reading noted today, she recently had tooth extraction and she is in pain she is also a little bit anxious. Instructed to check her blood pressure logs TODAYS ORDERS Orders Placed This Encounter Procedures POCT EKG Echo complete W/O contrast FOLLOW UP Return in about 1 year (around 06/10/2025). PCP: Tom Perkins MD Referring Physician: No referring provider defined for this encounter. documented in this encounter [facility] 06-10-2024 Instructions Ashanti Quiñonez MD - 06/10/2024 9:45 AM EST -- you do not have to wait for the echocardiogram to proceed with your EGD. documented in this encounter [facility] 06-09-2024 Miscellaneous Notes Left message for patient to remind them to bring their most current medication list with them to their appointment. documented in this encounter [facility] 06-09-2024 Telephone encounter Note Left message for patient to remind them to bring their most current medication list with them to their appointment. [facility] 06-08-2024 Miscellaneous Notes Reason: Patient called Patient had tooth pulled on 06/06/2024, and then had to return today due to dry socket, and had to have another procedure. She is in pain, but was advised not to take Ibuprofen or any NSAIDS. Advised by Dentist Her Dentist told her to contact our office to see what pain medication she can take besides Tylenol. Please Advise Thank You Low-dose ibuprofen 400mg twice daily would be okay as long as there was food in her stomach. Stop medication if it causes abdominal pain. Patient notified and verbalized understanding. documented in this encounter [facility] 06-08-2024 Telephone encounter Note Reason: Patient called Patient had tooth pulled on 06/06/2024, and then had to return today due to dry socket, and had to have another procedure. She is in pain, but was advised not to take Ibuprofen or any NSAIDS. Advised by Dentist Her Dentist told her to contact our office to see what pain medication she can take besides Tylenol. Please Advise Thank You [facility] 06-08-2024 Telephone encounter Note Low-dose ibuprofen 400mg twice daily would be okay as long as there was food in her stomach. Stop medication if it causes abdominal pain. [facility] 06-08-2024 Telephone encounter Note Patient notified and verbalized understanding. [facility] 06-08-2024 Hospital Discharg e instructions Siri Barrera DO - 06/08/2024 1:23 AM EST Please follow-up with your dentist in the morning. Continue applying ice to the area 20 minutes at a time multiple times a day to help with the pain. You can also continue taking Tylenol as directed. The following attachments cannot be sent through Care Everywhere.Tooth and Gum Pain (French)documented in this encounter [facility] 06-06-2024 Miscellaneous Notes Patient stated her hysterectomy has been moved up to 07/04/24 so she needs to move her surgery with our office out. Surgery has been changed to 08/25/24 at 7:30AM, patient to arrive at 5:30AM entrance [facility]. Pre op testing on 08/08/24 at 1:45PM. documented in this encounter [facility] 06-06-2024 Telephone encounter Note Patient stated her hysterectomy has been moved up to 07/04/24 so she needs to move her surgery with our office out. Surgery has been changed to 08/25/24 at 7:30AM, patient to arrive at 5:30AM entrance [facility]. Pre op testing on 08/08/24 at 1:45PM. [facility] 05-31-2024 History of Presen t illness Narrative [facility] New Patient Visit - History & Physical Chief Complaint Patient presents with Abdominal Pain Patient is here today for right upper quadrant pain and nausea. Patient states she has made a diet and lifestyle change and symptoms have improved. Patient states she had blood work done ( results in chart ). Patient denies other GI symptoms. Nausea HISTORY OF PRESENT ILLNESS: Sari Moulton is a 28 y.o. female with a PMH of pelvic congestion syndrome and abdominal pain. She presents the office today for evaluation of chronic abdominal pain. Referred from Dr. Hoang's office regarding chronic abdominal pain. She has seen Dr. Bridges, general surgeon, with reported EGD with dilation and colonoscopy 05/24/2022, performed in [facility]. Procedure indications of epigastric pain, GERD and change in bowel habit. EGD positive for H pylori Plan for laparoscopic cholecystectomy with Dr. Hoang scheduled for 06/23/2024 There is a plan for hysterectomy as well for her pelvic congestion syndrome on 07/25/[address] Tad Rosales [address] AP 01/11/2024: Multiple fluid-filled loops of small bowel primarily lower abdomen. May represent early illness or ingested material. Uterus is bulky in appearance. HIDA 05/16/2024 - EF 79% CT AP 10/21/2023: Small bowel intussusception mid lower abdomen/pelvis without obstruction. Patient presents to the office today reporting abdominal pain that waxes and wanes has been chronic in nature She has had pain for at least past 2 years She reports no specific trigger, but feels it might be something she is eating She reports that she does plan on having her gallbladder removed, but she also states that there is no guarantee regarding removing the gallbladder helping the discomfort. She will also have a hysterectomy secondary to congested pelvic syndrome She is planning cholecystectomy as well as hysterectomy June as well as July She reports she has had history of Helicobacter pylori treated in 2021. She did have a stool antigen test, which did return negative She is reporting dysphagia to solids She recently started on a PPI she is unsure if it is working She reports the biggest help has been a change in lifestyle as well as diet She reports she stop smoking cigarettes 3-4 weeks ago She has been off marijuana for several months She stopped drinking coffee She stopped red meat as well as red sauces She reports she has chronic back pain as well as dental pain, will have your teeth extracted in the next couple weeks She was taking naproxen as well as ibuprofen for the dental pain as well as some back pain She reports she has some increased stress She feels she is losing weight slowly Her appetite is decreased secondary to the dental discomfort Her bowel pattern has also improved with the change in diet She is reporting a daily bowel movement that is full and feeling evacuated She reports prior to change in her diet, she was having mushy cat poop like stools She reports she will be seeing Cardiology secondary to some chest pain. Appointment is scheduled for 06/10/24 Past Medical History: Diagnosis Date Pelvic congestion syndrome PREVIOUS ENDOSCOPY OR X-RAY PROCEDURES: As noted in the HPI Past Surgical History: Past Surgical History: Procedure Laterality Date ESOPHAGOGASTRODUODENOSCOPY OTHER SURGICAL HISTORY tubal removal Current Medications: Current Outpatient Medications: cetirizine (ZyrTEC) 10 mg tablet, Take 1 tablet (10 mg total) by mouth., Disp: , Rfl: diclofenac sodium (VOLTAREN ARTHRITIS PAIN) 1 % gel, Apply 2 g topically in the morning and 2 g at noon and 2 g in the evening and 2 g before bedtime., Disp: 100 g, Rfl: 0 fluticasone propionate (FLONASE) 50 mcg/actuation nasal spray, 1 spray., Disp: , Rfl: hyoscyamine (ANASPAZ,LEVSIN) 0.125 mg tablet, Take 1 tablet (125 mcg total) by mouth every 4 (four) hours as needed., Disp: , Rfl: nicotine (NICODERM CQ) 21 mg/24 hr, Place 1 patch on the skin., Disp: , Rfl: omeprazole (PriLOSEC) 20 mg capsule, Take 1 capsule (20 mg total) by mouth in the morning and at bedtime., Disp: 60 capsule, Rfl: 3 sucralfate (CARAFATE) 1 gram tablet, Take 1 tablet (1 g total) by mouth in the morning and 1 tablet (1 g total) at noon and 1 tablet (1 g total) in the evening and 1 tablet (1 g total) before bedtime., Disp: , Rfl: I reviewed and reconciled this patient's medication list today. The list included in this note is the most up to date list that I can attest to at this time based on the information that the patient has provided me and the electronic medical record. ALLERGIES: Patient has no allergy information on record. SOCIAL HISTORY: Social History Tobacco Use Smoking status: Former Types: Cigarettes Smokeless tobacco: Never Substance Use Topics Alcohol use: Not Currently FAMILY HISTORY: Family History Problem Relation Age of Onset COPD Mother Hypertension Father Colon cancer Maternal Grandmother ASSESSMENTS: REVIEW OF SYSTEMS: See HPI, otherwise ROS as below CONSTITUTIONAL: negative HEENT: negative RESPIRATORY: negative CARDIOVASCULAR: negative GASTROINTESTINAL: As in HPI GENITOURINARY: negative INTEGUMENT/BREAST: negative HEMATOLOGIC/LYMPHATIC: negative ALLERGIC/IMMUNOLOGIC: negative ENDOCRINE: negative MUSCULOSKELETAL: negative NEUROLOGICAL: negative BEHAVIOR/PSYCH: negative PHYSICAL EXAM: Vitals: 05/31/24 1352 BP: 123/63 Weight: 48.9 kg (107 lb 12.8 oz) Height: 50.2 cm (1' 7.76 ) Body mass index is 194.03 kg/m . CONSTITUTIONAL: awake, alert and no apparent distress EYES: pupils equal, round and reactive to light; conjunctiva pink and normal appearing ENT: oral pharynx with moist mucus membranes HEMATOLOGIC/LYMPHATICS: no cervical lymphadenopathy and no supraclavicular lymphadenopathy LUNGS: No increased work of breathing, good air exchange, clear to auscultation bilaterally, no crackles or wheezing CARDIOVASCULAR: regular rate and rhythm, normal S1 and S2, no murmur noted and no edema ABDOMEN: normal bowel sounds, soft, non-distended and non-tender SKIN: no bruising or bleeding, no rashes and no jaundice NEURO: no focal deficits, moves all 4 extremities spontaneously, ambulates from chair to the exam table without difficulty DATA: CBC: No results found for: WBC , RBC , HGB , HCT , MCV , RDW , PLT CMP: No results found for: NA , K , CL , CO2 , BUN , GLU , PROT , ALB , CA EGD: Normal esophagus, GE junction, stomach and duodenum. Pathology: Positive H pylori. Negative intestinal metaplasia or dysplasia Colonoscopy: Excellent prep with normal anatomy including TI Pathology: Unremarkable colonic mucosa ASSESSMENT AND PLAN: Sari Moulton is a 28 y.o. female with a PMH of pelvic congestion syndrome and abdominal pain. She presents the office today for evaluation of chronic abdominal pain. Patient reporting at least a 2 year history of wax and wane abdominal pain in various degrees of severity. She has a cholecystectomy as well as hysterectomy scheduled. She is reporting dysphagia. Bowel pattern has improved with dietary lifestyle changes. She is having epigastric pain. Subjective history of Helicobacter pylori treated in 2021. Epigastric abdominal pain with dysphagia: She will undergo EGD with Dr. Moreno [address] after cardiac clearance for chest pain Indications: Epigastric pain, dysphagia Continue with omeprazole 20 mg twice daily 30-60 minutes before 1st and last meal of the day Continue making better dietary choices. Avoid caffeine, nicotine and alcohol as well as all NSAIDs Further management depending on EGD and pathology findings Will follow-up after her EGD and surgeries that already scheduled Patient had opportunity to have questions answered. Patient is agreeable with plan. CONY LANIER PA-C [facility] [address] PH: [phone] [facility]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
--- NOTE | 2024-07-02 11:23 | US_ITS ---
The [address] [address] Patient Name: SARI MOULTON MRN: [id number] date: 1995 Sex: F Assigned Patient Location: ER Current Patient Location: Accession/Order Number: [id number] Exam Date: 07/02/2024 11:35 Report Date: 07/02/2024 13:44 At the request of: NIKO FERNANDEZ Procedure: US right upper quadrant EXAM: US right upper quadrant HISTORY: RUQ pain. COMPARISON: None. TECHNIQUE: Limited abdominal ultrasound of the right upper quadrant, utilizing grayscale and Doppler imaging. FINDINGS: GALLBLADDER: No cholelithiasis, wall thickening, or pericholecystic fluid. Gallbladder is contracted. COMMON BILE DUCT: Within normal limits. LIVER: The liver is of normal echogenicity. No hepatic masses or cysts are identified. No intrahepatic biliary dilation. No hepatomegaly. PANCREAS: No significant abnormality. Pancreatic tail not well seen. KIDNEYS: No significant abnormality demonstrated. Right kidney measures 11.9 x 4.9 x 4.4 cm. US/US right upper quadrant IMPRESSION: 1. Negative abdominal ultrasound. 2. No right hydronephrosis. 3. Gallbladder is contracted. No definitive evidence for cholecystitis. Electronically authenticated by: CAYDEN PHILLIPS Date: 07/02/2024 13:44
[2024-07-02 11:43] LABS: Basophils Absolute Auto 0.1 10^3/uL (0.0-0.1); Basophils Percent Auto 1.1 % (0.2-2.0); Eosinophils Absolute Auto 0.5 10^3/uL (0.0-0.7); Eosinophils Percent Auto 6.2 % (0.9-7.0); Hematocrit 39.3 % (36.0-48.0); Hemoglobin 13.9 g/dL (12.0-16.0); Immature Granulocytes Abs Auto 0.02 10^3/uL (0.00-0.03); Immature Granulocytes Pct Auto 0.3 % (0.0-0.5); Lymphocytes Absolute Auto 2.2 10^3/uL (1.2-3.8); Lymphocytes Percent Auto 29.2 % (20.5-60.0); Mean Corpuscular HGB Conc 35.4 g/dL (29.9-35.2); Mean Corpuscular Hemoglobin 34.3 pg (26.7-34.0); Mean Platelet Volume 9.7 fL (9.5-13.5); Monocytes Absolute Auto 0.4 10^3/uL (0.3-0.8); Monocytes Percent Auto 5.5 % (1.7-12.0); Neutrophils Absolute Auto 4.4 10^3/uL (1.4-6.5); Neutrophils Percent Auto 57.7 % (43.0-75.0); Platelet Count 266 10^3/uL (150-450); Red Blood Count 4.05 10^6/uL (4.20-5.40); Red Cell Distribution Width 12.6 % (11.0-15.0); White Blood Count 7.6 10^3/uL (4.0-11.0)
[2024-07-02 12:06] LABS: HCG Qualitative NEGATIVE (NEGATIVE); Internal Control Within Normal Limits
[2024-07-02] MEDS: ONDANSETRON PF 4 MG/2 ML VIAL IV (12:06)
[2024-07-02] MEDS: KETOROLAC TROMETHAMINE 30 MG/ML VIAL 15 MG IVP (12:06)
[2024-07-02] MEDS: FAMOTIDINE/PF 20 MG/2 ML VIAL IV (12:06)
[2024-07-02 12:14] LABS: Alanine Aminotransferase 32 U/L (14-59); Albumin Globulin Ratio 1.2; Albumin Level 4.1 g/dL (3.4-5.0); Alkaline Phosphatase 80 U/L (46-116); Anion Gap 15.8; Aspartate Amino Transferase 20 U/L (15-37); BUN Creatinine Ratio 17.4; Bilirubin Total 0.4 mg/dL (0.2-1.0); Calcium 8.9 mg/dL (8.5-10.1); Carbon Dioxide 23.1 mmol/L (21.0-32.0); Chloride 105 mmol/L (98-107); Estimated GFR (African America >60 (>=60 mL/min/1.73m^2); Estimated GFR (Non-African Ame >60 (>=60 mL/min/1.73m^2); Globulin 3.5 g/dL; Glucose 91 mg/dL (74-106); Potassium 3.9 mmol/L (3.5-5.1); Sodium 140 mmol/L (136-145); Total Protein 7.6 g/dL (6.4-8.2)
--- NOTE | 2024-07-02 13:27 | ED_ITS ---
HPI - Abdominal Pain General Chief Complaint: Abdominal Pain Stated Complaint: ABDOMINAL PAIN Time Seen by Provider: 07/02/24 11:09 Source: patient Mode of arrival: walk-in History of Present Illness HPI narrative: The patient have a history of chronic abdominal pain most epigastric apparently has been worked up done for her right upper quadrant which she said that she might have a gallbladder surgery next month although the patient denied that in the history although she mentioned in triage Patient mentioned that she just ate almost within the last hour after eating she started having right upper quadrant pain, ate some tackle and right now she is having some epigastric pain with nausea Related Data Home Medications ?Medication ?Instructions ?Recorded ?Confirmed hydroxyzine HCl 25 mg tablet 25 mg PO BID 05/11/24 05/30/24 sucralfate .Route 05/11/24 Previous Rx's ?Medication ?Instructions ?Recorded nicotine See Rx Instructions transdermal 05/11/24 21mg/24hr-14mg/24hr-7mg/24hr daily .COMPLEX #56 patches transderm patches,sequentl omeprazole 40 mg capsule,delayed 40 mg PO DAILY #30 caps 07/02/24 release Allergies Allergy/AdvReac Type Severity Reaction Status Date / Time No Known Drug Allergies Allergy Verified 05/30/24 21:49 PFSH PFSH Social History Little interest or pleasure in doing things: not at all Feeling down, depressed, or hopeless: not at all Exam Narrative Exam Narrative: Nurses notes and vital signs reviewed and patient is not hypoxic. General: Well-appearing and in no apparent distress. Skin: Warm, dry, no pallor noted. No rash. Head: Normocephalic, atraumatic. Neck: Supple, non-tender. Eye: Pupils are equal, round and EOMI. No scleral icterus. Ears, Nose, Mouth, and Throat: TM are clear, no nasal mucosal hypertrophy. Oral mucosa is moist, no posterior oropharynx erythema, uvula is mid-line Cardiovascular: Regular Rate and Rhythm without murmur, gallop or rub. Respiratory: No accessory muscle use or respiratory distress. Lungs are clear to auscultation, no wheezing, rales or rhonchi Chest Wall: no tenderness Back: No midline thoracic or lumbar vertebral tenderness. No CVA tenderness Musculoskeletal: normal ROM, no calf or popliteal tenderness, no lower extremity edema/swelling GI: Abdomen is soft, non-distended, right upper quadrant tenderness but negative Yung Neurological: A&O x4. No cranial nerve dysfunction observed. No truncal ataxia. Moves all extremities. Sensation intact. Psychiatric: Cooperative and interactive. Normal mood and affect. Constitutional Vital Signs, click to edit/add: Last Vital Signs Temp 98 F 07/02/24 11:03 Pulse 77 07/02/24 11:03 Resp 16 07/02/24 11:03 BP 112/73 07/02/24 11:03 Pulse Ox 99 07/02/24 11:03 Course Vital Signs Vital signs: Vital Signs Temperature 98 F 07/02/24 11:03 Pulse Rate 77 07/02/24 11:03 Respiratory Rate 16 07/02/24 11:03 Blood Pressure 112/73 07/02/24 11:03 Pulse Oximetry 99 07/02/24 11:03 Temperature 98 F 07/02/24 11:03 Pulse Rate 77 07/02/24 11:03 Respiratory Rate 16 07/02/24 11:03 Blood Pressure 112/73 07/02/24 11:03 Pulse Oximetry 99 07/02/24 11:03 MDM - Abdominal Pain MDM Narrative Medical decision making narrative: The patient CBC and chemistry showed no acute pathology The right upper quadrant pain is associated with nausea and it could be secondary to gallbladder that why the blood workup was done and ultrasound but workup so far is negative Patient is feeling better after initial treatment she was discharged home with increasing her Protonix from 20-40 Patient mentioned that she already had endoscopy done in the last few months and ruled out any peptic ulcer She does have a history of IBS The patient is to follow up with primary care physician in next 2-3 days or to return to the emergency department should any of the signs or symptoms worsen or new symptoms develop. The patient agrees with the following Diagnosis and Treatment plan and the patient will be discharged home. Lab Data Labs: Lab Results 07/02/24 Range/Units 11:32 WBC 7.6 (4.0-11.0) 10^3/uL RBC 4.05 L (4.20-5.40) 10^6/uL Hgb 13.9 (12.0-16.0) g/dL Hct 39.3 (36.0-48.0) % MCV 97.0 (81.0-99.0) fL MCH 34.3 H (26.7-34.0) pg MCHC 35.4 H (29.9-35.2) g/dL RDW 12.6 (11.0-15.0) % Plt Count 266 (150-450) 10^3/uL MPV 9.7 (9.5-13.5) fL Neut % (Auto) 57.7 (43.0-75.0) % Lymph % (Auto) 29.2 (20.5-60.0) % [place] % (Auto) 5.5 (1.7-12.0) % Eos % (Auto) 6.2 (0.9-7.0) % Baso % (Auto) 1.1 (0.2-2.0) % Neut # (Auto) 4.4 (1.4-6.5) 10^3/uL Lymph # (Auto) 2.2 (1.2-3.8) 10^3/uL [place] # (Auto) 0.4 (0.3-0.8) 10^3/uL Eos # (Auto) 0.5 (0.0-0.7) 10^3/uL Baso # (Auto) 0.1 (0.0-0.1) 10^3/uL Abs Immat Gran (auto) 0.02 (0.00-0.03) 10^3/uL Imm/Tot Granulo (auto) 0.3 (0.0-0.5) % Sodium 140 (136-145) mmol/L Potassium 3.9 (3.5-5.1) mmol/L Chloride 105 (98-107) mmol/L Carbon Dioxide 23.1 (21.0-32.0) mmol/L Anion Gap 15.8 BUN 12.0 (7.0-18.0) mg/dL Creatinine 0.69 (0.55-1.02) mg/dL Est GFR ( Amer) >60 (>=60 mL/min/1.73m^2) Est GFR (Non-Af Amer) >60 (>=60 mL/min/1.73m^2) BUN/Creatinine Ratio 17.4 Glucose 91 (74-106) mg/dL Calcium 8.9 (8.5-10.1) mg/dL Total Bilirubin 0.4 (0.2-1.0) mg/dL AST 20 (15-37) U/L ALT 32 (14-59) U/L Alkaline Phosphatase 80 (46-116) U/L Total Protein 7.6 (6.4-8.2) g/dL Albumin 4.1 (3.4-5.0) g/dL Globulin 3.5 g/dL Albumin/Globulin Ratio 1.2 Lipase 56.0 (16.0-77.0) U/L Serum HCG, Qual Negative (NEGATIVE) Discharge Plan Discharge Chief Complaint: Abdominal Pain Clinical Impression: Abdominal pain Patient Disposition: Home, Self-Care Time of Disposition Decision: 13:31 Condition: Good Prescriptions / Home Meds: New omeprazole 40 mg capsule,delayed release(DR/EC) 40 mg PO DAILY Qty: 30 0RF Discontinued omeprazole 10 mg capsule,delayed release(DR/EC) 10 mg PO BID No Action sucralfate .Route hydroxyzine HCl 25 mg tablet 25 mg PO BID nicotine 21-14-7 mg/24 hr patch, TD daily, sequential See Rx Instructions .ROUTE .COMPLEX Qty: 56 0RF Rx Instructions: apply 1-21 mg NICOTINE PATCH daily for 28 days; follow with 1-14 mg PATCH daily for 14 days, then 1-7mg PATCH daily for 14 days Print Language: Kiswahili Instructions: Abdominal Pain (ED) Referrals: Tom Perkins MD [Primary Care Provider] - 1 week
== END 2024-07-02 13:44 | disposition home or self-care (01) ==
PROVIDERS: Emergency Provider Emergency Medicine; PCP Family Medicine
DX: R10.11 Right upper quadrant pain (principal); R10.13 Epigastric pain; G89.29 Other chronic pain
CPT/HCPCS: 36415; 76705; 80053; 83690; 84703; 85025; 99285; J1885; J2405

== ENCOUNTER 2024-07-20 18:41 | Emergency (ER) | payer OTHER, SELFPAY ==
[2024-07-20 18:48] VITALS: BP 127/79; PULSE 82; TEMP 36.6; O2SAT 98; BMI 22.9
--- OUTSIDE RECORDS SUMMARY | 2024-07-20 18:53 | XMS_ITS | CCD ---
Author Organization [facility] ion Partnership [facility] Care Team Providers Care Repair Supervisor Name Role Phone Marialuisa Huerta Unavailable Unavailable Unavailable Unavailable Marialuisa Huerta Primary Care Provid er JOLLY BENDER Attending Unav ailable Marialuisa Huerta Primary Care Serene vailable JOLLY BENDER Attending Unav ailable Marialuisa Huerta Primary Care Serene vailable MARIALUISA HUERTA Primary Care Unavailab Marialuisa Ly Primary Care Provider [phone] Marialuisa Huerta DO Primary Care Provider Unavailable Primary Care Provider UnavailMarialuisa Mccormack DO Primary Care Provider SHEFALI KOO Attending Unavailable MARIALUISA HUERTA Primary Care Serene vailable SHEFALI KOO Attending Unavailable MARIALUISA HUERTA Primary Care Serene vailable Tom Perkins MD Primary Care Provider [phone] AIDEN SALCEDO Attending Unavailable TOM PERKINS Primary Care Unavailable Tom Perkins MD Primary Care Provider Unavailable Primary Care Provider UnavailTom Vu MD Primary Care Provider [phone] ASHANTI QUIÑONEZ Attending Unavailable TOM PERKINS Primary Care Unavailable TETE HOANG Attending Unavailable TOM PERKINS Referring Unavailable TETE HOANG Referring Unavailable CONY LANIER Attending Unavailable ANGELIA MORENO Admitting Unavailable ANGELIA MORENO Attending Unavailable CARMINA, TOM S Referring Unavailable CARMINA, [facility] S Primary Care Unavailable MARIALUISA HUERTA Primary Care Unavailab le NAZEMI I, MELISSA Referring Unavailable CARMINA, [facility] Primary Care Unavailable LATRICIA KHOURY Referring Unavailable CARMINA, [facility] Care Unavailable LINN POOZ Attending Unavailable CARMINA, [facility] Primary Care Unavailable BARRERASIRI Attending Unavailable CARMINA, [facility] Primary Care Unavailable BARRERA, SIRI J Attending Unavailable CARMINA, [facility] Primary Care Unavailable LATASHA ROSARIO Attending Unavailable [facility] Care Unavailab le CARMINA, [facility] Care Unavailable CONG HUERTA Jorje Primary Care Unavailab ESTEBAN Briceño [phone] Justino meng Unavailable CARMINA, [facility] Primary Care Unavailable LATRICIA JIN Attending Unavailable CARMINA, [facility] Care Unavailable LINN POZO Attending Unavailable CARMINA, [facility] Primary Care Unavailable BARRERA, SIRI J Attending Unavailable CARMINA, [facility] Care Unavailable CARMINA, [facility] Care Unavailable BARRERASIRI Attending Unavailable CARMINA, [facility] Care Unavailable LINN POZO Attending Unavailable CHENCHO PINEDO Attending Unavailable CARMINA, [facility] Care Unavailable CARMINA, [facility] Care Unavailable YARELI COBB Attending Unavailable [facility] Primary Care Unavailab le [facility] Primary Care Unavailab le NAZEMI I, MELISSA Referring Unavailable BRANDYN GHOSH Referring Unavailabl e CARMINA, [facility] Primary Care Unavailable IACOBJULIO CESARROGE Referring Unavailable CARMINA, [facility] Primary Care Unavailable IACOBJULIO CESARROGE Referring Unavailable CARMINA, [facility] Primary Care Unavailable BRANDYN GHOSH Referring Unavailabl e CARMINA, [facility] Primary Care Unavailable BRANDYN GHOSH Referring Unavailabl e CARMINA, [facility] Care Unavailable CARMINA, [facility] Referring Unavailable CARMINA, [facility] Primary Care Unavailable CARMINA, [facility] Referring Unavailable CARMINA, [facility] Primary Care Unavailable BRANDYN GHOSH Referring Unavailabl e RAY, CHENCHO Attending Unavailable TOM PERKINS Primary Care Unavailable MARIALUISA HUERTA Primary Care Unavailab le MELISSA SAGASTUME Referring Unavailable MELISSA SAGASTUME Attending Unavailable TOM PERKINS Primary Care Unavailable LATRICIA KHOURY Referring Unavailable Allergies Allergy Classification Reported Allergen(s) Allergy Type Date of Onset Reaction(s) Facility (1 source) Amoxicillin Drug Allergy 07-07-2018 [place] (6 sources) Penicillins Propensity to adverse reactions to drug 07-07-2018 [place] (8 sources) Penicillins Propensity to adverse reactions to drug 07-07-2018 [facility] (1 source) Penicillins Propensity to adverse reactions to drug 07-07-2018 [facility] Medications Current Medications Medication Drug Class(es) [...] Active cetirizine hydrochloride 10 mg oral tablet (20 sources) Histamine-1 Receptor Antagonist Start: 01-12-2019 End: 05-03-2022 take 1 tablet by mouth once daily cetirizine (ZYRTEC) 10 MG tablet Take 1 tablet by mouth daily 30 tablet 0 04/03/2022 05/03/2022 Active Cetirizine HCl ( ZYRTEC ALLERGY PO) Take by mouth daily Active chlorhexidine gluconate 1.2 mg/ml mouthwash (2 sources) Start: 07-10-2024 End: 07-24-2024 chlorhexidine (PERIDEX) 0.12 % solution Swish and spit 15 mLs 2 times daily for 14 days 420 mL 07/10/2024 07/24/2024 Active Start: 04-01-2024 End: 04-15-2024 take 15 mL by mouth twice daily chlorhexidine (PERIDEX) 0.12 % solution Indications: Oral lesion Swish and spit 15 mLs 2 times daily for 14 days 420 mL 04/01/2024 04/15/2024 diclofenac sodium 0.01 mg/mg topical gel (13 [...] daily 28 tablet 6 12/10/2023 Active nystatin 607910 unt/ml oral suspension (2 sources) Polyene Antifungal Start: 04-01-2024 End: 04-29-2024 take 5 mL by mouth four times daily nystatin (MYCOSTATIN) [id number] UNIT/ML suspension Indications: Oral lesion Take 5 mLs by mouth 4 times daily for 28 days 280 mL 1 04/01/2024 04/29/2024 Active omeprazole 40 mg delayed release oral capsule (19 sources) Proton Pump Inhibitor Start: 07-02-2024 take 1 capsule by mouth once daily omeprazole (PRILOSEC) 40 MG delayed release capsule Take 1 capsule by mouth daily 07/02/2024 Active Start: 05-17-2024 End: 05-17-2024 take 1 capsule by mouth at bedtime omeprazole (PriLOSEC) 20 mg capsule Indications: Gastroesophageal reflux disease without esophagitis Take 1 capsule (20 mg total) by mouth in the morning and at bedtime. 60 capsule 3 05/17/2024 Active Start: 01-15-2022 take 1 capsule by mo uth once daily before breakfast omeprazole (PRILOSEC) 40 [...] Start: 05-02-2024 take 1 tablet by francy th three times daily as needed for nausea ondansetron (ZOFRAN-ODT) 4 MG disintegrating tablet Take 1 tablet by mouth 3 times daily as needed for Nausea or Vomiting 21 tablet 05/02/2024 Active Start: 05-02-2024 End: 05-02-2024 4 mg, IntraVENous, ONCE, 1 d ose, On Thu05/02/24 at 0015 Start: 01-11-2024 take 1 tablet [...] potassium (VEETID) 500 MG tablet 05/21/2024 Active Probiotic Product (DIGESTIVE ADVANTAGE GUMMIES PO) (4 sources) Probiotic Produc t (DIGESTIVE ADVANTAGE GUMMIES PO) Take by mouth daily Active raNITIdine 150 mg oral tablet (1 source) Histamine-2 Receptor Antagonist Start: 12-30-2018 take 1 tablet by mouth twice daily ranitidine (ZANTAC) 150 MG tablet Indications: Gastroesophageal reflux disease without esophagitis Take 1 tablet by mouth 2 times daily 60 tablet 0 12/30/2018 Active sucralfate 1000 mg oral tablet (15 sources) Aluminum Complex Start: 05-07-2024 take 1 [...] total) before bedtime. 05/07/2024 Active triamcinolone acetonide 0.25 mg/ml topical cream (4 sources) Corticosteroid Start: 07-07-2024 triamcinolone (KENALOG) 0.025 % cream Indications: Dermatitis Apply topically 2 times daily. 15 g 07/07/2024 Active Start: 04-03-2022 take 2 spray(s) nasa l route once daily triamcinolone (NASACORT ALLERGY 24HR) [...] by mouth once daily 0 08/10/2019 Active zinc citrate 30 mg oral capsule (4 sources) take 1 capsule by mo uth once daily Zinc 30 MG CAPS Take 30 mg by mouth daily gummy Active Completed/Discontinued Medications Medication Drug Class(es) Dates Sig (Normalized) Sig (Original) clindamycin 150 mg oral capsule (3 sources) Lincosamide Antibacterial Start: 07-10-2024 End: 07-10-2024 take 1 dose by mouth once 300 mg, Oral, ONCE, 1 dose, On 07/10/24 at 2215, Antimicrobial Indications: Skin and Soft Tissue Infection Start: 07-10-2024 End: 07-20-2024 take 1 capsule by mouth four times daily clindamycin (CLEOCIN) 300 MG capsule Take 1 capsule by mouth 4 times daily for 10 days 40 capsule 07/10/2024 07/20/2024 Active Start: 05-18-2024 take 1 capsule by mo uth three times daily clindamycin (CLEOCIN) 300 MG capsule Take 1 capsule by mouth 3 times daily 05/18/2024 Active 2 ml dicyclomine hydrochloride 10 mg/ml injection (1 source) Anticholinergic Start: 01-11-2024 End: 01-11-2024 dicyclomine (BENTYL) injection 20 mg famotidine 20 mg oral tablet (1 source) Histamine-2 Receptor Antagonist Start: 05-07-2024 End: 05-07-2024 take 1 dose by mouth once 20 mg, Oral, ONCE, 1 dose, On 05/07/24 at 1215 GI cocktail: alum/mag hydrox-simethicone(3 0ml)+lidocaine 2%(10ml) oral suspension 40 mL (1 source) [...] disorder, combined type] Onset: 6 12-06-2015 Chronic Disorders of teeth and jaw (8 sources) Toothache; Translations: [Other specified disorders of [...] bleeding; Translations: [Gastritis] Onset: 4 05-07-2024 Episodic Immunizations and screening for infectious disease (2 sources) Requires diphtheria, tetanus and pertussis vaccination; Translations: [Encounter for immunization] Onset: 4 06-15-2024 Episodic Malaise and fatigue (2 sources) Fatigue; Translations: [Fatigue] Onset: 4 Episodic Miscellaneous mental health disorders (1 source) [...] right ear; Translations: [Otalgia, unspecified] Episodic Other female genital disorders (1 source) Vaginal discharge; Translations: [Other specified noninflammatory disorders of vagina] 07-07-2024 Episodic Other female genital disorders (1 source) Other specified noninflammatory disorders of vagina; Translations: [Other specified noninflammatory disorders of vagina] Onset: 4 Episodic Other gastrointestinal disorders (1 source) Abdominal bloating; Translations: [Bloating] Episodic Other gastrointestinal disorders (2 sources) Dysphagia; Translations: [Dysphagia, unspecified] 05-31-2024 Episodic Other gastrointestinal disorders (1 source) Dysphagia, unspecified; Translations: [Dysphagia, unspecified] Onset: 4 Episodic Other lower respiratory disease (1 source) Cough; Translations: [Cough, unspecified type] 07-05-2024 Episodic Other non-traumatic joint disorders (1 source) Hip pain; Translations: [Pain in left hip] 07-07-2024 Episodic Other non-traumatic joint disorders (1 source) Pain in left hip; Translations: [Pain in left hip] Onset: 4 Episodic Other and delivery including [...] deformations and chromosomal abnormalities] Onset: 4 Episodic Sprains and strains (2 sources) Strain of muscle, fascia and tendon of the posterior muscle group at thigh level, left thigh, initial encounter; Translations: [Strain of muscle, fascia and tendon of lower back, initial encounter] Onset: 4 Episodic Substance-related disorders (20 sources) Narcotic drug user; Translations: [Opioid dependence, [...] right upper quadrant abdominal pain Onset: 4 Unclassified (1 source) Low back pain, unspecified; Translations: [Low back pain, unspecified] Onset: 4 Unclassified (2 sources) Cough, unspecified; Translations: [Cough, unspecified] Onset: 4 Past or Other Problems Problem [...] elsewhere] Onset: 01-11-2024 Episodic Biliary tract disease (4 sources) Biliary dyskinesia; Translations: [Other specified diseases of gallbladder] Onset: 11-24-2023 05-17-2024 Episodic Cancer of cervix (17 sources) Atypical squamous cells of undetermined significance on cervical Papanicolaou smear; Translations: [Atypical squamous cells of undetermined significance on cytologic smear of cervix (ASC-US)] Onset: 06-30-2022 Episodic Genitourinary symptoms and ill-defined conditions (2 sources) Blood in urine; Translations: [Hematuria, unspecified] Onset: 03-29-2024 03-29-2024 Episodic Inflammatory diseases of female pelvic organs (2 sources) Bacterial vaginosis; Translations: [Acute vaginitis] Onset: 01-11-2024 01-11-2024 Episodic Intestinal obstruction without hernia (1 source) Intussusception; Translations: [Intussusception] Onset: 10-21-2023 Episodic Other female genital disorders (16 sources) Pelvic congestion syndrome; Translations: [Other specified conditions associated with female genital organs and menstrual cycle] Onset: 12-02-2023 12-02-2023 Episodic Other gastrointestinal disorders (15 sources) Constipation; Translations: [Constipation, unspecified] Onset: 01-15-2024 01-15-2024 Episodic Other gastrointestinal disorders (15 sources) Diarrhea; Translations: [Diarrhea, unspecified] Onset: 01-15-2024 [...] cervix] Onset: 11-08-2023 Episodic Other skin disorders (15 sources) Skin tag; Translations: [Other hypertrophic disorders of the skin] Onset: 06-30-2022 06-30-2022 Episodic Other upper respiratory disease (16 sources) Nasal discharge; Translations: [Other specified disorders of nose and nasal sinuses] Onset: 01-15-2024 01-15-2024 Episodic Other upper respiratory disease (1 source) Other specified disorders of nose and nasal sinuses; Translations: [Other specified disorders of nose and nasal sinuses] Onset: 01-15-2024 Episodic Residual codes; unclassified (1 source) Other general symptoms and signs; Translations: [Other general symptoms and signs] Onset: 01-22-2024 Episodic Spondylosis; intervertebral disc disorders; other back problems (6 sources) Backache; Translations: [Dorsalgia, unspecified] Onset: 11-11-2023 Episodic Unclassified (1 source) Maxillary sinusitis, unspecified chronicity Unclassified (1 source) Cough, unspecified; Translations: [Cough, unspecified] Onset: 07-05-2024 Results Test Name Value Interpretation Reference Range Facility CBC with Diffon 07-17-2024 Abs. Basophil 0.08 k/uL Normal 0.00-0.20 [place] Comment on above: Performed By: #### C P, CDP ####[address] , [facility] lab Director: Calin Tapia MD Abs.Imm.Granulocyte <0.03 Normal 0.00-0.30 [facility] Comment on above: Performed By: #### C P, CDP ####[address] [place] [id number] lab Director: Calin Tapia MD Abs.Neutrophil (Seg) 4.62 k/uL Normal 1.50-8.10 [facility] Comment on above: Performed By: #### C P, CDP ####[address] , [place] [id number] lab Director: Calin Tapia MD Basophils/100 WBC (Bld) 1 % Normal 0-2 [facility] Comment on above: Performed By: #### C P, CDP ####[address] , [place] [id number] Lab Director: Calin Tapia MD Eosinophils (Bld) [#/Vol] 0.27 10*3/uL Normal 0.00-0.44 [facility] Comment on above: Performed By: #### C P, CDP ####[address] , [place] [id number] Lab Director: Calin Tapia MD Eosinophils/100 WBC (Bld) 3 % Normal 1-4 [facility] Comment on above: Performed By: #### C P, CDP ####[address] , [place] [id number] Lab Director: Calin Tapia MD Erythrocyte distribution width (RBC) [Ratio] 11.9 % Normal 11.8-14.4 [facility] Comment on above: Performed By: #### C P, CDP ####[address] , [facility] Lab Director: Calin Tapia MD Hematocrit (Bld) [Volume fraction] 43.1 % Normal 36.3-47.1 [facility] Comment on above: Performed By: #### C P, CDP ####[address] , [facility] Lab Director: Calin Tapia MD Hemoglobin (Bld) [Mass/Vol] 14.9 g/dL Normal 11.9-15.1 [facility] Comment on above: Performed By: #### C P, CDP ####[address] [place] [address] Lab Director: Calin Tapia MD Immature granulocytes/100 WBC (Bld) 0 % Normal 0 [facility] Comment on above: Performed By: #### C P, CDP ####[address] [place] [id number])[phone] Director: Calin Tapia MD Lymphocytes (Bld) [#/Vol] 2.87 10*3/uL Normal 1.10-3.70 [facility] Comment on above: Performed By: #### C P, CDP ####[address] , [place] [address])[phone] Director: Calin Tapia MD Lymphocytes/100 WBC (Bld) 34 % Normal 24-43 [facility] Comment on above: Performed By: #### C P, CDP ####[address] , [place] [address])[phone] Director: Calin Tapia MD MCH (RBC) [Entitic mass] 33.0 pg Normal 25.2-33.5 [facility] Comment on above: Performed By: #### C P, CDP ####[address] , [place] [address])[phone] Director: Calin Tapia MD MCHC (RBC) [Mass/Vol] 34.6 g/dL Normal 28.4-34.8 [facility] Comment on above: Performed By: #### C P, CDP ####[address] , [place] [address])[phone] Director: Calin Tapia MD MCV (RBC) [Entitic vol] 95.6 fL Normal 82.6-102.9 [facility] Comment on above: Performed By: #### C P, CDP ####[address] , [facility]83[facility])[phone] Director: Calin Tapia MD Monocytes (Bld) [#/Vol] 0.66 10*3/uL Normal 0.10-1.20 [facility] Comment on above: Performed By: #### C P, CDP ####[address] , [facility])[phone] Director: Calin Tapia MD Monocytes/100 WBC (Bld) 8 % Normal 3-12 [facility] Comment on above: Performed By: #### C P, CDP ####[address] , [place] [id number] Lab Director: Calin Tapia MD Neutrophil (Seg) 54 % Normal 36-65 [facility] Comment on above: Performed By: #### C P, CDP ####[address] , [place] [phone] Lab Director: Calin Tapia MD NRBC Automated 0.0 per 100 WBC Normal 0.0 [facility] Comment on above: Performed By: #### C P, CDP ####[address] , [place] [id number] Lab Director: Calin Tapia MD Platelet mean volume (Bld) [Entitic vol] 9.4 fL Normal 8.1-13.5 [facility] Comment on above: Performed By: #### C P, CDP ####[address] [place] [address] Lab Director: Calin Tapia MD Platelets (Bld) [#/Vol] 314 10*3/uL Normal 138-453 [facility] Comment on above: Performed By: #### C P, CDP ####[address] [place] [address] Lab Director: Calin Tapia MD RBC (Bld) [#/Vol] 4.51 10*6/uL Normal 3.95-5.11 [facility] Comment on above: Performed By: #### C P, CDP ####[address] , [place] 48[address] Lab Director: Calin Tapia MD WBC (Bld) [#/Vol] 8.5 10*3/uL Normal 3.5-11.3 [facility] Comment on above: Performed By: #### C P, CDP ####[address] , [place] [id number] Lab Director: Calin Tapia MD Comp Metabolic Profon 2023 Albumin [Mass/Vol] 4.7 g/dL Normal 3.5-5.2 [facility] Comment on above: Performed By: #### C P, CDP ####[address] [place] [address] Lab Director: Calin Tapia MD Albumin/Glob Ratio 1.5 Normal 1.0-2.5 [facility] Comment on above: Performed By: #### C P, CDP ####[address] [place] [address] Lab Director: Calin Tapia MD Alkaline Phos 71 U/L Normal 35-104 [place] Comment on above: Performed By: #### C P, CDP ####[address] [place] [address] Lab Director: Calin Tapia MD ALT [Catalytic activity/Vol] 18 U/L Normal 10-35 [facility] Comment on above: Performed By: #### C P, CDP ####[address] [place] [address] Lab Director: Calin Tapia MD Anion gap [Moles/Vol] 9 mmol/L Normal 9-16 [facility] Comment on above: Performed By: #### C P, CDP ####[address] [place] [address] Lab Director: Calin Tapia MD AST [Catalytic activity/Vol] 20 U/L Normal 10-35 [facility] Comment on above: Performed By: #### C P, CDP ####[address] [place] [address] lab Director: Calin Tapia MD Bilirubin [Mass/Vol] 0.2 mg/dL Normal 0.00-1.20 [facility] Comment on above: Performed By: #### C P, CDP ####[address] [place] [address] lab Director: Calin Tapia MD BUN/CRE Ratio 16 Normal 9-20 [place] Comment on above: Performed By: #### C P, CDP ####[address] , [place] [id number] lab Director: Calin Tapia MD Calcium [Mass/Vol] 9.4 mg/dL Normal 8.6-10.4 [facility] Comment on above: Performed By: #### C P, CDP ####[address] , [place] [id number] lab Director: Calin Tapia MD Chloride [Moles/Vol] 102 mmol/L Normal 98-107 [facility] Comment on above: Performed By: #### C P, CDP ####[address] , [place] [address] lab Director: Calin Tapia MD CO2 [Moles/Vol] 24 mmol/L Normal 20-31 [facility] Comment on above: Performed By: #### C P, CDP ####[address] , [place] [address] lab Director: Calin Tapia MD Creatinine [Mass/Vol] 0.7 mg/dL Normal 0.50-0.90 [facility] Comment on above: Performed By: #### C P, CDP ####[address] [place] [address] lab Director: Calin Tapia MD GFR/1.73 sq M.predicted among non-blacks MDRD (S/P/Bld) [Vol rate/Area] mL/min/{1.73_m2} Normal >60 [facility] Comment on above: Result Comment: Thes e results are not intended for use in patients <18 years of age.eGFR results are calculated without a race factor using the 2020 CKD-EPI equation.Careful clinical correlation is recommended, particularly when comparing to results calculated using previous equations.The CKD-EPI equation is less accurate in patients with extremes of muscle mass, extra-renal metabolism of creatine, excessive creatine ingestion, or following therapy that affects renal tubular secretion. Performed By: #### C P, CDP ####[address] , [place] [id number] Lab Director: Calin Tapia MD Glucose [Mass/Vol] 87 mg/dL Normal 74-99 [facility] Comment on above: Performed By: #### C P, CDP ####[address] [place] [address] Lab Director: Calin Tapia MD Potassium [Moles/Vol] 4.2 mmol/L Normal 3.7-5.3 [facility] Comment on above: Performed By: #### C P, CDP ####[address] [place] [address] Lab Director: Calin Tapia MD Protein [Mass/Vol] 7.9 g/dL Normal 6.6-8.7 [facility] Comment on above: Performed By: #### C P, CDP ####[address] [place] [address] Lab Director: Calin Tapia MD Sodium [Moles/Vol] 135 mmol/L Low 136-145 [facility] Comment on above: Performed By: #### C P, CDP ####[address] [place] [address] Lab Director: Calin Tapia MD Urea nitrogen [Mass/Vol] 11 mg/dL Normal 6-20 [facility] Comment on above: Performed By: #### C P, CDP ####[address] [place] [address] Lab Director: Calin Tapai MD Urinalysis, Routineon 2023 Bilirubin, SemiQt,Ur Negative Normal NEG [facility] Comment on above: Performed By: #### U A ####[address] [place] [address] Lab Director: Calin Tapia MD Blood, Urine Negative Normal NEG [facility] Comment on above: Performed By: #### U A ####[address] [place] [address] Lab Director: Calin Tapia MD Clarity (U) Clear Normal CLEAR [facility] Comment on above: Performed By: #### U A ####[address] [place] [address] Lab Director: Calin Tapia MD Color (U) Yellow Normal YEL [facility] Comment on above: Performed By: #### U A ####[address] [place] [address] Lab Director: Calin Tapia MD Glucose Ql (U) Negative Normal NEG [facility] Comment on above: Performed By: #### U A ####[address] [place] [address] Lab Director: Calin Tapia MD Ketones Ql (U) Negative Normal NEG [facility] Comment on above: Performed By: #### U A ####[address] [place] [address] Lab Director: aClin Tapia MD Leukocyte esterase Test strip Ql (U) Negative Normal NEG [facility] Comment on above: Performed By: #### U A ####[address] [place] [address] Lab Director: Calin Tapia MD Nitrite,Ur Negative Normal NEG [facility] Comment on above: Performed By: #### U A ####[address] [place] [address] Lab Director: Calin Tapia MD PH,Ur 7.0 Normal 5.0-9.0 [facility] Comment on above: Performed By: #### U A ####[address] [place] [address] Lab Director: Calin Tapia MD Protein Ql (U) Negative Normal NEG [facility] Comment on above: Performed By: #### U A ####[address] , [place] [phone])[phone] Director: Calin Tapia MD Spec. [place],Ur 1.010 Normal 1.010-1.020 [facility] Comment on above: Performed By: #### U A ####[address] [place] [address] [facility] Director: Calin Tapia MD Urobilinogen,Ur Normal Normal 0.0-1.0 [facility] Comment on above: Performed By: #### U A ####[address] , [place] [phone] Director: Calin Tapia MD Cult,Genitalon 07-16-2024 Cult,Genital Normal [facility] Comment on above: Performed By: #### G EC ####[address] [place], [place] [address] Lab Director: John Mason [address] [place] [address] Lab Director: Calin Tapia MD CBC with Diffon 07-13-2024 Abs. Basophil 0.08 k/uL Normal 0.00-0.20 [place] Comment on above: Performed By: #### C DP ####[address] , [place] [address] Lab Director: Calin Tapia MD Abs.Imm.Granulocyte <0.03 Normal 0.00-0.30 [facility] Comment on above: Performed By: #### C DP ####[address] [place] [address] Lab Director: Calin Tapia MD Abs.Neutrophil (Seg) 4.65 k/uL Normal 1.50-8.10 [facility] Comment on above: Performed By: #### C DP ####[address] [place], [place] [address])[phone] Director: Calin Tapia MD Basophils/100 WBC (Bld) 1 % Normal 0-2 [facility] Comment on above: Performed By: #### C DP ####[address] [place], [place] [address])[phone] Director: Calin Tapia MD Eosinophils (Bld) [#/Vol] 0.28 10*3/uL Normal 0.00-0.44 [facility] Comment on above: Performed By: #### C DP ####[address] [place], [place] [address])[phone] Director: Calin Tapia MD Eosinophils/100 WBC (Bld) 4 % Normal 1-4 [facility] Comment on above: Performed By: #### C DP ####[address] [place], [place] [address])[phone] Director: Calin Tapia MD Erythrocyte distribution width (RBC) [Ratio] 11.8 % Normal 11.8-14.4 [facility] Comment on above: Performed By: #### C DP ####[address] [place] [phone] Lab Director: Calin Tapia MD Hematocrit (Bld) [Volume fraction] 39.2 % Normal 36.3-47.1 [facility] Comment on above: Performed By: #### C DP ####[address] , [facility]83 [facility] Director: Calin Tapia MD Hemoglobin (Bld) [Mass/Vol] 14.0 g/dL Normal 11.9-15.1 [facility] Comment on above: Performed By: #### C DP ####[address] , [facility] Lab Director: Calin Tapia MD Immature granulocytes/100 WBC (Bld) 0 % Normal 0 [facility] Comment on above: Performed By: #### C DP ####[address] , [place] [address] [facility] Director: Calin Tapia MD Lymphocytes (Bld) [#/Vol] 2.49 10*3/uL Normal 1.10-3.70 [facility] Comment on above: Performed By: #### C DP ####[address] , [place] [address])[phone] Director: Calin Tapia MD Lymphocytes/100 WBC (Bld) 31 % Normal 24-43 [facility] Comment on above: Performed By: #### C DP ####[address] , [place] [address])[phone] Director: Calin Tapia MD MCH (RBC) [Entitic mass] 33.8 pg High 25.2-33.5 [facility] Comment on above: Performed By: #### C DP ####[address] , [facility] Lab Director: Calin Tapia MD MCHC (RBC) [Mass/Vol] 35.7 g/dL High 28.4-34.8 [facility] Comment on above: Performed By: #### C DP ####[address] [place] [address] Lab Director: Calin Tapia MD MCV (RBC) [Entitic vol] 94.7 fL Normal 82.6-102.9 [facility] Comment on above: Performed By: #### C DP ####[address] , [place] 7907[address] Lab Director: Calin Tapia MD Monocytes (Bld) [#/Vol] 0.53 10*3/uL Normal 0.10-1.20 [facility] Comment on above: Performed By: #### C DP ####[address] , [place] [phone] Lab Director: Calin Tapia MD Monocytes/100 WBC (Bld) 7 % Normal 3-12 [facility] Comment on above: Performed By: #### C DP ####[address] , [facility]83[facility])[phone] Director: Calin Tapia MD Neutrophil (Seg) 57 % Normal 36-65 [facility] Comment on above: Performed By: #### C DP ####[address] , [place] [phone] Director: Calin Tapia MD NRBC Automated 0.0 per 100 WBC Normal 0.0 [facility] Comment on above: Performed By: #### C DP ####[address] , [place] [phone] Director: Calin Tapia MD Platelet mean volume (Bld) [Entitic vol] 9.6 fL Normal 8.1-13.5 [facility] Comment on above: Performed By: #### C DP ####[address] , [place] 400[address] Lab Director: Calin Tapia MD Platelets (Bld) [#/Vol] 291 10*3/uL Normal 138-453 [facility] Comment on above: Performed By: #### C DP ####[facility] [place] , [place] 802[address] lab Director: Calin Tapia MD RBC (Bld) [#/Vol] 4.14 10*6/uL Normal 3.95-5.11 [facility] Comment on above: Performed By: #### C DP ####[facility] [place] , [place] 7229[address] lab Director: Calin Tapia MD WBC (Bld) [#/Vol] 8.1 10*3/uL Normal 3.5-11.3 [facility] Comment on above: Performed By: #### C DP ####[facility] [place] , [place] [phone] lab Director: Calin Tapia MD Basic Metabolic Panelon 12-0 Anion gap [Moles/Vol] 9 mmol/L 9 - 16 mmol/L [facility] Calcium [Mass/Vol] 8.7 mg/dL 8.6 - 10. 4 mg/dL [facility] Chloride [Moles/Vol] 106 mmol/L 98 - 10 7 mmol/L [facility] CO2 [Moles/Vol] 25 mmol/L 20 - 31 mmol/L [facility] Creatinine [Mass/Vol] 0.6 mg/dL 0.50 - 0.90 mg/dL [facility] Est, Glojorje Lopez Rate - PINF [facility] Comment on above: These results are not [...] that affects renal tubular secretion. Glucose [Mass/Vol] 102 mg/dL High 74 - 99 mg/dL [facility] Interpretation and review of laboratory results Abnormal [facility] Potassium [Moles/Vol] 3.9 mmol/L 3.7 - 5.3 mmol/L [facility] Sodium [Moles/Vol] 140 mmol/L 136 - 145 mmol/L [facility] Urea nitrogen [Mass/Vol] 11 mg/dL 6 - 20 mg/dL [facility] Urea nitrogen/Creatinine [Mass ratio] 18 mg/mg 9 - 20 [facility] Basic Metabolic Profon 07-10 Anion gap [Moles/Vol] 9 mmol/L Normal 9-16 [facility] Comment on above: Performed By: #### S ED, BMP, CDP, CRP ####[facility] [place] [address] Lab Director: Calin Tapia MD BUN/CRE Ratio 18 Normal 9- [place] Comment on above: Performed By: #### S ED, BMP, CDP, CRP ####[address] , [place] 3914[address] lab Director: Calin Tapia MD Calcium [Mass/Vol] 8.7 mg/dL Normal 8.6-10.4 [facility] Comment on above: Performed By: #### S ED, BMP, CDP, CRP ####[address] , [place] 3825[address] Lab Director: Calin Tapia MD Chloride [Moles/Vol] 106 mmol/L Normal 98-107 [facility] Comment on above: Performed By: #### S ED, BMP, CDP, CRP ####[address] [place] [address] lab Director: Calin Tapia MD CO2 [Moles/Vol] 25 mmol/L Normal 20-31 [facility] Comment on above: Performed By: #### S ED, BMP, CDP, CRP ####[address] [place] [address] Lab Director: Clain Tapia MD Creatinine [Mass/Vol] 0.6 mg/dL Normal 0.50-0.90 [facility] Comment on above: Performed By: #### S ED, BMP, CDP, CRP ####[address] [place] [address] Lab Director: Calin Tapia MD GFR/1.73 sq M.predicted among non-blacks MDRD (S/P/Bld) [Vol rate/Area] mL/min/{1.73_m2} Normal >60 [facility] Comment on above: Result Comment: Thes e results are not intended for use in patients <18 years of age.eGFR results are calculated without a race factor using the 2020 CKD-EPI equation.Careful clinical correlation is recommended, particularly when comparing to results calculated using previous equations.The CKD-EPI equation is less accurate in patients with extremes of muscle mass, extra-renal metabolism of creatine, excessive creatine ingestion, or following therapy that affects renal tubular secretion. Performed By: #### S ED, BMP, CDP, CRP ####[address] , [place] 3455383 Lab Director: Calin Tapia MD Glucose [Mass/Vol] 102 mg/dL High 74-99 [facility] Comment on above: Performed By: #### S ED BMP, CDP, CRP ####[address] , [place] 1060[address] Lab Director: Calin Tapia MD Potassium [Moles/Vol] 3.9 mmol/L Normal 3.7-5.3 [facility] Comment on above: Performed By: #### S ED, BMP, CDP, CRP ####[address] , [place] 664[address]83 Lab Director: Calin Tapia MD Sodium [Moles/Vol] 140 mmol/L Normal 136-145 [facility] Comment on above: Performed By: #### S ED, BMP, CDP, CRP ####[address] , [place] 235[address]83 lab Director: Calin Tapia MD Urea nitrogen [Mass/Vol] 11 mg/dL Normal 6-20 [facility] Comment on above: Performed By: #### S ED, BMP, CDP, CRP ####[address] , [place] [phone] lab Director: Calin Tapia MD C-Reactive Proteinon 024 CRP High sensitivity method [Mass/Vol] mg/L 0.0 - 5.0 mg/L [facility] CRP [Mass/Vol] mg/L Normal 0.0-5.0 [facility] Comment on above: Performed By: #### S ED, BMP, CDP, CRP ####[address] , [place] 280[address] lab Director: Calin Tapia MD CBC with Auto Differentialon 07-10-2024 Basophils (Bld) [#/Vol] 0.06 10*3/uL [facility] Basophils/100 WBC (Bld) 1 % 0 - 2 % [facility] Eosinophils (Bld) [#/Vol] 0.47 10*3/uL High [facility] Eosinophils/100 WBC (Bld) 4 % 1 - 4 % [facility] Erythrocyte distribution width (RBC) [Ratio] 11.9 % 11.8 - 14.4 % [facility] Hematocrit (Bld) [Volume fraction] 35.8 % Low 36.3 - 47.1 % [facility] Hemoglobin (Bld) [Mass/Vol] 12.7 g/dL 11.9 - 15.1 g/dL [facility] Immature granulocytes (Bld) [#/Vol] 0.03 10*3/uL [facility] Immature granulocytes/100 WBC (Bld) 0 % 0 [facility] Interpretation and review of laboratory results Abnormal [facility] Lymphocytes/100 WBC (Bld) 17 % Low 24 - 43 % [facility] Lymphocytes/100 WBC (Bld) 2.00 % [facility] MCH (RBC) [Entitic mass] 34.0 pg High 25.2 - 33.5 pg [facility] MCHC (RBC) [Mass/Vol] 35.5 g/dL High 28.4 - 34.8 g/dL [facility] MCV (RBC) [Entitic vol] 96.0 fL 82.6 - 102.9 fL [facility] Monocytes/100 WBC (Bld) 6 % 3 - 12 % [facility] Monocytes/100 WBC (Bld) 0.76 % [facility] Neutrophils/100 WBC (Bld) 72 % High 36 - 65 % [facility] Nucleated RBC/100 WBC (Bld) [Ratio] 0.0 % 0.0 per 100 WBC [facility] Platelet mean volume (Bld) [Entitic vol] 9.6 fL 8.1 - 13.5 fL [facility] Platelets (Bld) [#/Vol] 252 10*3/uL [facility] RBC (Bld) [#/Vol] 3.73 10*6/uL Low 3.95 - 5.1 1 m/uL [facility] Segmented neutrophils/100 WBC (Bld) 8.59 % High [facility] WBC other (Bld) [#/Vol] 11.9 High [facility] CBC with Diffon 07-10-2024 Abs. Basophil 0.06 k/uL Normal 0.00-0.20 [place] Comment on above: Performed By: #### S ED, BMP, CDP, CRP ####[facility] [place] , [place] 360[address]483 Lab Director: Calin Tapia MD Abs.Imm.Granulocyte 0.03 k/uL Normal 0.00-0.30 [facility] Comment on above: Performed By: #### S ED, BMP, CDP, CRP ####[facility] [place] , [place] [address]83 Lab Director: Calin Tapia MD Abs.Neutrophil (Seg) 8.59 k/uL High 1.50-8.10 [facility] Comment on above: Performed By: #### S ED, BMP, CDP, CRP ####[address] , [facility]83 Lab Director: Calin Tapia MD Basophils/100 WBC (Bld) 1 % Normal 0-2 [facility] Comment on above: Performed By: #### S ED, BMP, CDP, CRP ####[address] , [facility] Lab Director: Calin Tapia MD Eosinophils (Bld) [#/Vol] 0.47 10*3/uL High 0.00-0.44 [facility] Comment on above: Performed By: #### S ED, BMP, CDP, CRP ####[address] , [facility] Lab Director: Calin Tapia MD Eosinophils/100 WBC (Bld) 4 % Normal 1-4 [facility] Comment on above: Performed By: #### S ED, BMP, CDP, CRP ####[address] , [facility] lab Director: Calin Tapia MD Erythrocyte distribution width (RBC) [Ratio] 11.9 % Normal 11.8-14.4 [facility] Comment on above: Performed By: #### S ED, BMP, CDP, CRP ####[address] , [facility] Lab Director: Calin Tapia MD Hematocrit (Bld) [Volume fraction] 35.8 % Low 36.3-47.1 [facility] Comment on above: Performed By: #### S ED, BMP, CDP, CRP ####[address] , [facility] Lab Director: Calin Tapia MD Hemoglobin (Bld) [Mass/Vol] 12.7 g/dL Normal 11.9-15.1 [facility] Comment on above: Performed By: #### S ED, BMP, CDP, CRP ####[address] [place], [place] [address] lab Director: Calin Tapia MD Immature granulocytes/100 WBC (Bld) 0 % Normal 0 [facility] Comment on above: Performed By: #### S ED, BMP, CDP, CRP ####[address] [place] [address] lab Director: Calin Tapia MD Lymphocytes (Bld) [#/Vol] 2.00 10*3/uL Normal 1.10-3.70 [facility] Comment on above: Performed By: #### S ED, BMP, CDP, CRP ####[address] [place] [id number] lab Director: Calin Tapia MD Lymphocytes/100 WBC (Bld) 17 % Low 24-43 [facility] Comment on above: Performed By: #### S ED, BMP, CDP, CRP ####[address] [place] [address] lab Director: Calin Tapia MD MCH (RBC) [Entitic mass] 34.0 pg High 25.2-33.5 [facility] Comment on above: Performed By: #### S ED, BMP, CDP, CRP ####[address] , [facility] Lab Director: Calin Tapia MD MCHC (RBC) [Mass/Vol] 35.5 g/dL High 28.4-34.8 [facility] Comment on above: Performed By: #### S ED, BMP, CDP, CRP ####[address] , [place] [address] lab Director: Calin Tapia MD MCV (RBC) [Entitic vol] 96.0 fL Normal 82.6-102.9 [facility] Comment on above: Performed By: #### S ED, BMP, CDP, CRP ####[address] , [place] [address])[phone] Director: Calin Tapia MD Monocytes (Bld) [#/Vol] 0.76 10*3/uL Normal 0.10-1.20 [facility] Comment on above: Performed By: #### S ED, BMP, CDP, CRP ####[address] , [facility]83[facility])[phone] Director: Calin Tapia MD Monocytes/100 WBC (Bld) 6 % Normal 3-12 [facility] Comment on above: Performed By: #### S ED, BMP, CDP, CRP ####[address] , [facility]30([facility])[phone] Director: Calin Tapia MD Neutrophil (Seg) 72 % High 36-65 [facility] Comment on above: Performed By: #### S ED, BMP, CDP, CRP ####[address] , [place] [address])[phone] Director: Calin Tapia MD NRBC Automated 0.0 per 100 WBC Normal 0.0 [facility] Comment on above: Performed By: #### S ED, BMP, CDP, CRP ####[address] , [place] [address])[phone] Director: Calin Tapia MD Platelet mean volume (Bld) [Entitic vol] 9.6 fL Normal 8.1-13.5 [facility] Comment on above: Performed By: #### S ED, BMP, CDP, CRP ####[address] , [place] 123[address]83 Lab Director: Calin Tapia MD Platelets (Bld) [#/Vol] 252 10*3/uL Normal 138-453 [facility] Comment on above: Performed By: #### S ED, BMP, CDP, CRP ####[facility] [place] , [place] [address] Lab Director: Calin Tapia MD RBC (d) [#/Vol] 3.73 10*6/uL Low 3.95-5.11 [facility] Comment on above: Performed By: #### S ED, BMP, CDP, CRP ####[facility] [place] , [place] 3590683 Lab Director: Calin Tapia MD WBC (Bld) [#/Vol] 11.9 10*3/uL High 3.5-11.3 [facility] Comment on above: Performed By: #### S ED, BMP, CDP, CRP ####[facility] [place] , [place] 3390[address] Lab Director: Calin Tapia MD COVID-19, Rapidon 07-10-2024 SARS-CoV-2 (COVID-19) RdRp gene JAKE+probe Ql (Resp) Not detected Not Detected [facility] Comment on above: Rapid NAAT: The specimen is NEGATIVE for SARS-CoV-2, the novel coronavirus associated with COVID-19. The ID NOW COVID-19 assay is designed to detect the virus that causes COVID-19 in patients with signs and symptoms of infection who are suspected of COVID-19. An individual without symptoms of COVID-19 and who is not shedding SARS-CoV-2 virus would expect to have a negative (not detected) result in this assay. Negative results should be treated as presumptive and, if inconsistent with clinical signs and symptoms or necessary for patient management, should be tested with an alternative molecular assay. Negative results do not preclude SARS-CoV-2 infection and should not be used as the sole basis for patient management decisions. Methodology: Isothermal Nucleic Acid Amplification Specimen Description .NASOPHARYNGEAL SWAB [facility] Flu A/B Ag Detectionon 07-10 Flu A Ag Detection Negative Normal NEG [facility] Comment on above: Result Comment: for Influenza A Antigen Performed By: #### F LUABA ####[facility] [place] , [place] [address] Lab Director: Calin Tapia MD Flu B Ag Detection Negative Normal NEG [facility] Comment on above: Result Comment: for Influenza B Antigen. Performed By: #### F KENNETH ####[facility] [place] [address] lab Director: Calin Tapia MD No Panel Informationon 07-10 [facility] Rapid influenza A/B antigens on 07-10-2024 FLUAV Ag Ql (Unsp spec) Negative NEGATIVE [facility] Comment on above: for Influenza A Anti gen FLUBV Ag Ql (Unsp spec) Negative NEGATIVE [facility] Comment on above: for Influenza B Anti gen. [facility] [id number] 07-10-2024 SARS-CoV-2 (COVID-19) RNA JAKE+probe Ql (Unsp spec) Not detected Normal NOTDET [facility] Comment on above: Result Comment: Rapi d NAAT: The specimen is NEGATIVE for SARS-CoV-2, the novel coronavirus associated with COVID-19.The ID NOW COVID-19 assay is designed to detect the virus that causes COVID-19 in patients with signs and symptoms of infection who are suspected of COVID-19.An individual without symptoms of COVID-19 and who is not shedding SARS-CoV-2 virus would expect to have a negative (not detected) result in this assay.Negative results should be treated as presumptive and, if inconsistent with clinical signs and symptoms or necessary for patient management,should be tested with an alternative molecular assay. Negative results do not preclude SARS-CoV-2 infection andshould not be used as the sole basis for patient management decisions.Methodology: Isothermal Nucleic Acid Amplification Performed By: #### C OVRB ####[facility] [place] [address] lab Director: Calin Tapia MD Sedimentation Rateon 024 ESR Photometric method (Bld) [Velocity] 3 [facility] Sedimentation Rate 3 mm/Hr Normal 0-20 [facility] Comment on above: Performed By: #### S ED, BMP, CDP, CRP ####[facility] [place] , [place] [id number] Lab Director: Calin Tapia MD Cult,Urineon 2024 Cult,Urine Specimen Description .CLEAN CATCH URINE Special Requests Site: Urine Culture NO GROWTH Report Status FINAL 2024 Normal [facility] Comment on above: Performed By: #### U RC ####[facility] [place] [address] Lab Director: John Mason, [address] , [place] [address] Lab Director: Calin Tapia MD Urinalysis w/ Microon 2023 Bilirubin, SemiQt,Ur Negative Normal NEG [facility] Comment on above: Performed By: #### U AMIC ####[address] [place] [address] Lab Director: Calin Tapia MD Blood, Urine Negative Normal NEG [facility] Comment on above: Performed By: #### U AMIC ####[facility] [place] , [place] [address] Lab Director: Calin Tapia MD Clarity (U) Clear Normal CLEAR [facility] Comment on above: Performed By: #### U AMIC ####[facility] [place] , [place] [address]83 Lab Director: Calin Tapia MD Color (U) Yellow Normal YEL [facility] Comment on above: Performed By: #### U AMIC ####[facility] [place] , [place] [id number] Lab Director: Calin Tapia MD Epithelial cells LM Ql (Urine sed) 0 TO 2 Normal 0-25 [facility] Comment on above: Performed By: #### U AMIC ####[address] [place] [address] Lab Director: Calin Tapia MD Glucose Ql (U) Negative Normal NEG [facility] in Hospital Comment on above: Performed By: #### U AMIC ####[address] [place] [address] Lab Director: Calin Tapia MD Ketones Ql (U) Negative Normal NEG [facility] Comment on above: Performed By: #### U AMIC ####[address] [place] [address] Lab Director: Calin Tapia MD Leukocyte esterase Test strip Ql (U) Negative Normal NEG [facility] Comment on above: Performed By: #### U AMIC ####[address] [place] [address] [facility] Director: Calin Tapia MD Nitrite,Ur Negative Normal NEG [facility] Comment on above: Performed By: #### U AMIC ####[address] [place] [address] Lab Director: Calin Tapia MD PH,Ur 6.0 Normal 5.0-9.0 [facility] Comment on above: Performed By: #### U AMIC ####[address] [place] [address] Lab Director: Calin Tapia MD Protein Ql (U) Negative Normal NEG [facility] in Hospital Comment on above: Performed By: #### U AMIC ####[address] , [place] [id number] Lab Director: Calin Tapia MD Spec. [place],Ur <1.005 Low 1.010-1.020 [facility] Comment on above: Performed By: #### U AMIC ####[address] [place] , [place] [address] [facility] Director: Calin Tapia MD Urine RBC's 0 TO 2 Normal 0-2 [facility] Comment on above: Performed By: #### U AMIC ####[facility] [place] , [place] [id number] lab Director: Calin Tapia MD Urine WBC's 0 TO 2 Normal 0-5 [facility] Comment on above: Performed By: #### U AMIC ####[facility] [place] [address] , [place] [id number] lab Director: Calin Tapia MD Urobilinogen,Ur Normal Normal 0.0-1.0 [facility] Comment on above: Performed By: #### U AMIC ####[address] , [facility] lab Director: Calin Tapia MD Urinalysis with Microscopico n 07-07-2024 Bilirubin Ql (U) Negative NEGATIVE [facility] Clarity (U) Clear Clear [facility] Color (U) Yellow Yellow [facility] Epithelial cells LM.HPF (Urine sed) [#/Area] 0 TO 2 [facility] Glucose Test strip (U) [Mass/Vol] Negative NEGATIVE mg/dL [facility] Hemoglobin Auto test strip Ql (U) Negative NEGATIVE [facility] Interpretation and review of laboratory results Abnormal [facility] Ketones (U) [Mass/Vol] Negative NEGATIVE mg/dL [facility] Leukocyte esterase Test strip Ql (U) Negative NEGATIVE [facility] Nitrite Ql (U) Negative NEGATIVE [facility] pH (U) 6.0 [pH] 5.0 - 9.0 [facility] Protein (U) [Mass/Vol] Negative NEGATIVE mg/dL [facility] RBC LM.HPF (Urine sed) [#/Area] 0 TO 2 [facility] Specific gravity (U) [Rel density] Low 1.010 - 1.020 [facility] Urobilinogen Qn (U) Normal 0.0 - 1. 0 EU/dL [facility] WBC LM.HPF (Urine sed) [#/Area] 0 TO 2 [facility] XR CHEST (2 VW)on 07-05-2024 XR CHEST (2 VW) Normal [facility] XR Chest 2 Viewson No acute process. [facility] EXAMINATION: TWO XRAY VIEWS OF THE CHEST 07/05/2024 5:05 pm COMPARISON: 05/01/2024 HISTORY: ORDERING SYSTEM PROVIDED HISTORY: Cough, unspecified type TECHNOLOGIST PROVIDED HISTORY: acute cough FINDINGS: The lungs are without acute focal process. There is no effusion or pneumothorax. The cardiomediastinal silhouette is stable. The osseous structures are stable. [facility] Hernando Sorenson MD - 07/05/2024 EXAMINATION: TWO XRAY VIEWS OF THE CHEST 07/05/2024 5:05 pm COMPARISON: 05/01/2024 HISTORY: ORDERING SYSTEM PROVIDED HISTORY: Cough, unspecified type TECHNOLOGIST PROVIDED HISTORY: acute cough FINDINGS: The lungs are without acute focal process. There is no effusion or pneumothorax. The cardiomediastinal silhouette is stable. The osseous structures are stable. IMPRESSION: No acute process. [facility] Radiology Study observation (narrative) [facility] XR Chest 2 ViewsOrdered By: Hernando Sorenson on 07-05-2024 [facility] Work Phone: Surgical Pathologyon 024 Surgical Pathology Normal [facility] Comment on above: Result Comment: [facility] [address] [place] [address] Surgical Pathology Consultation Patient Name:SARI MOULTON:1995 (Age: 28)Gender:FTaken:4Reported:4Physician(s):MISSAEL MORENO ([phone])Copy To:[facility] CenterAccession #:[id number]. Rec. #:[id number]: #[id number] Final Pathologic Diagnosis 1. Gastric biopsies: Normal [...] or dysplasia identified. Report Electronically Signed Out [facility] / /23/2024Jony Vasquez M.D. Interpretation performed at [facility], [facility], [place] [id number], License number: [id number]. Clinical History Right upper quadrant abdominal pain, Dysphagia, unspecified type, Part 1; R/O H. Pylori, Parts 2 and 3; R/O EOE Gross Description 1. Received in formalin labeled KENNEY, #1: Gastric biopsy R/O H. pylori are 4 desai bits/strips of soft tissue, ranging from 0.2-0.7 cm in greatest dimension. Filtered and submitted in a single cassette. (1, ns, [id number], m4) MG 2. Received in formalin labeled KENNEY, #2: Esophageal distal biopsy R/O EOE are 2 desai bits of soft tissue, each 0.4 cm in greatest dimension. Filtered and submitted in a single cassette. (1, ns, [id number], m4) MG 3. Received in formalin labeled KENNEY, #3: Esophageal proximal biopsy R/O EOE are 4 desai bits of soft tissue, ranging from 0.2-0.4 cm in greatest dimension. Filtered and submitted in a single cassette. (1, ns, [id number], m4) MG [facility]/06/20/2024NSK Specimen(s) Received 1: Gastric biopsies 2: Distal esophageal biopsies 3: Proximal esophageal biopsies Fee Codes(s): 1; 40269 2; 41152 3; 31278 POCT EKGon 06-10-2024 [facility] XR HAND LEFT (MIN 3 VIEWS)on 05-29-2024 XR HAND LEFT (MIN 3 VIEWS) Normal [facility] C-Reactive Proteinon 024 CRP [Mass/Vol] mg/L Normal 0.0-5.0 [facility] Comment on above: Performed By: #### D MARIJA, CRP ####[address] , [place] [address])[phone] Director: Calin Tapia MD CBC with Diffon 05-23-2024 Abs. Basophil 0.06 k/uL Normal 0.00-0.20 [place] Comment on above: Performed By: #### ABEBE Alexander, CP ####[address] , [place] [address])[phone] Director: Calin Tapia MD Abs.Imm.Granulocyte <0.03 Normal 0.00-0.30 [facility] Comment on above: Performed By: #### ABEBE Alexander, CP ####[address] , [facility]83[facility])[phone] Director: Calin Tapia MD Abs.Neutrophil (Seg) 4.11 k/uL Normal 1.50-8.10 [facility] Comment on above: Performed By: #### ABEBE Alexander, CP ####[address] , [place] [address])[phone] Director: Calin Tapia MD Basophils/100 WBC (Bld) 1 % Normal 0-2 [facility] Comment on above: Performed By: #### ABEBE Alexander, CP ####[address] , [place] [address])[phone] Director: Calin Tapia MD Eosinophils (Bld) [#/Vol] 0.21 10*3/uL Normal 0.00-0.44 [facility] Comment on above: Performed By: #### ABEBE Alexander, CP ####[address] , [place] [address] Lab Director: Calin Tapia MD Eosinophils/100 WBC (Bld) 3 % Normal 1-4 [facility] Comment on above: Performed By: #### ABEBE Alexander, CP ####[address] [place] [address] Lab Director: Calin Tapia MD Erythrocyte distribution width (RBC) [Ratio] 11.5 % Low 11.8-14.4 [facility] Comment on above: Performed By: #### ABEBE Alexander, CP ####[address] , [facility]83[facility])[phone] Director: Calin Tapia MD Hematocrit (Bld) [Volume fraction] 37.4 % Normal 36.3-47.1 [facility] Comment on above: Performed By: #### ABEBE Alexander, CP ####[address] , [facility]83[facility])[phone] Director: Calin Tapia MD Hemoglobin (Bld) [Mass/Vol] 13.4 g/dL Normal 11.9-15.1 [facility] Comment on above: Performed By: #### ABEBE Alexander, CP ####[address] , [place] [address])[phone] Director: Calin Tapia MD Immature granulocytes/100 WBC (Bld) 0 % Normal 0 [facility] Comment on above: Performed By: #### ABEBE Alexander, CP ####[address] , [place] [address])[phone] Director: Calin Tapia MD Lymphocytes (Bld) [#/Vol] 2.38 10*3/uL Normal 1.10-3.70 [facility] Comment on above: Performed By: #### ABEBE Alexander, CP ####[address] [place] [address] Lab Director: Calin Tapia MD Lymphocytes/100 WBC (Bld) 33 % Normal 24-43 [facility] Comment on above: Performed By: #### ABEBE Alexander, CP ####[address] , [place] [id number])[phone] Director: Calin Tapia MD MCH (RBC) [Entitic mass] 33.7 pg High 25.2-33.5 [facility] Comment on above: Performed By: #### ABEBE Alexander, CP ####[address] , [facility]83[facility])[phone] Director: Calin Tapia MD MCHC (RBC) [Mass/Vol] 35.8 g/dL High 28.4-34.8 [facility] Comment on above: Performed By: #### ABEBE Alexander, CP ####[address] , [facility]83[facility])[phone] Director: Calin Tapia MD MCV (RBC) [Entitic vol] 94.0 fL Normal 82.6-102.9 [facility] Comment on above: Performed By: #### ABEBE Alexander, CP ####[address] , [place] [address])[phone] Director: Calin Tapia MD Monocytes (Bld) [#/Vol] 0.43 10*3/uL Normal 0.10-1.20 [facility] Comment on above: Performed By: #### ABEBE Alexander, CP ####[address] , [place] [address])[phone] Director: Calin Tapia MD Monocytes/100 WBC (Bld) 6 % Normal 3-12 [facility] Comment on above: Performed By: #### ABEBE Alexander, CP ####[address] , [facility]71([facility])[phone] Director: Calin Tapia MD Neutrophil (Seg) 57 % Normal 36-65 [facility] Comment on above: Performed By: #### ABEBE Alexander, CP ####[address] , [place] [address] [facility] Director: Calin Tapia MD NRBC Automated 0.0 per 100 WBC Normal 0.0 [facility] Comment on above: Performed By: #### ABEBE Alexander, CP ####[address] , [facility]83 Lab Director: Calin Tapia MD Platelet mean volume (Bld) [Entitic vol] 9.6 fL Normal 8.1-13.5 [facility] Comment on above: Performed By: #### ABEBE Alexander, CP ####[address] , [place] [address] Lab Director: Calin Tapia MD Platelets (Bld) [#/Vol] 235 10*3/uL Normal 138-453 [facility] Comment on above: Performed By: #### ABEBE Alexander, CP ####[address] , [place] [address])[phone] Director: Calin Tapia MD RBC (Bld) [#/Vol] 3.98 10*6/uL Normal 3.95-5.11 [facility] Comment on above: Performed By: #### ABEBE Alexander, CP ####[address] , [place] [address])[phone] Director: Calin Tapia MD WBC (Bld) [#/Vol] 7.2 10*3/uL Normal 3.5-11.3 [facility] Comment on above: Performed By: #### ABEBE Alexander, CP ####[address] , [place] [address])[phone] Director: Calin Tapia MD Comp Metabolic Profon 2023 Albumin [Mass/Vol] 4.7 g/dL Normal 3.5-5.2 [facility] Comment on above: Performed By: #### ABEBE Alexander, CP ####[address] , [place] 40[address] Lab Director: Calin Tapia MD Albumin/Glob Ratio 2.2 Normal 1.0-2.5 [facility] Comment on above: Performed By: #### ABEBE Alexander, CP ####[address] , [place] 58[address] Lab Director: Calin Tapia MD Alkaline Phos 49 U/L Normal 35-104 [place] Comment on above: Performed By: #### Jorje Meng, ABEBE, CP ####[address] , [place] [address] Lab Director: Calin Tapia MD ALT [Catalytic activity/Vol] 15 U/L Normal 10-35 [facility] Comment on above: Performed By: #### ABEBE Alexander, CP ####[address] , [place] 76[address]83 Lab Director: Calin Tapia MD Anion gap [Moles/Vol] 9 mmol/L Normal 9-16 [facility] Comment on above: Performed By: #### ABEBE Alexander, CP ####[address] [place] [address] Lab Director: Calin Tapia MD AST [Catalytic activity/Vol] 20 U/L Normal 10-35 [facility] Comment on above: Performed By: #### ABEBE Alexander, CP ####[address] , [place] [address] Lab Director: Calin Tapia MD Bilirubin [Mass/Vol] 0.6 mg/dL Normal 0.00-1.20 [facility] Comment on above: Performed By: #### ABEBE Alexander, CP ####[address] , [place] 60[address]683 Lab Director: Calin Tapia MD BUN/CRE Ratio 13 Normal 9-20 [place] Comment on above: Performed By: #### M Penny, CDP, CP ####[facility] [place] , [place] [id number] Lab Director: Calin Tapia MD Calcium [Mass/Vol] 9.3 mg/dL Normal 8.6-10.4 [facility] Comment on above: Performed By: #### M Penny, CDP, CP ####[address] [place] [address] Lab Director: Calin Tapia MD Chloride [Moles/Vol] 103 mmol/L Normal 98-107 [facility] Comment on above: Performed By: #### M Penny, ABEBE, CP ####[address] , [place] 1479[address] Lab Director: Calin Tapia MD CO2 [Moles/Vol] 27 mmol/L Normal 20-31 [facility] Comment on above: Performed By: #### M Penny, CDP, CP ####[address] [place] [address] Lab Director: Calin Tapia MD Creatinine [Mass/Vol] 0.9 mg/dL Normal 0.50-0.90 [facility] Comment on above: Performed By: #### M Penny CDP, CP ####[address] [place] [address] Lab Director: Calin Tapia MD GFR/1.73 sq M.predicted among non-blacks MDRD (S/P/Bld) [Vol rate/Area] mL/min/{1.73_m2} Normal >60 [facility] Comment on above: Result Comment: Thes e results are not intended for use in patients <18 years of age.eGFR results are calculated without a race factor using the 2020 CKD-EPI equation.Careful clinical correlation is recommended, particularly when comparing to results calculated using previous equations.The CKD-EPI equation is less accurate in patients with extremes of muscle mass, extra-renal metabolism of creatine, excessive creatine ingestion, or following therapy that affects renal tubular secretion. Performed By: #### ABEBE Alexander, CP ####[address] [place] [address] Lab Director: Calin Tapia MD Glucose [Mass/Vol] 122 mg/dL High 74-99 [facility] Comment on above: Performed By: #### ABEBE Alexander, CP ####[address] [place] [address] Lab Director: Calin Tapia MD Potassium [Moles/Vol] 3.8 mmol/L Normal 3.7-5.3 [facility] Comment on above: Performed By: #### ABEBE Alexander, CP ####[address] , [place] [address] Lab Director: Calin Tapia MD Protein [Mass/Vol] 6.9 g/dL Normal 6.6-8.7 [facility] Comment on above: Performed By: #### ABEBE Alexander, CP ####[address] [place] [address] Lab Director: Calin Tapia MD Sodium [Moles/Vol] 139 mmol/L Normal 136-145 [facility] Comment on above: Performed By: #### ABEBE Alexander, CP ####[address] [place] [address] Lab Director: Calin Tapia MD Urea nitrogen [Mass/Vol] 12 mg/dL Normal 6-20 [facility] Comment on above: Performed By: #### ABEBE Alexander, CP ####[address] , [place] 5[address] Lab Director: Calin Tapia MD D-Dimer Teston 05-23-2024 D-Dimer Test <0.27 Normal 0.00-0.59 [facility] Comment on above: Result Comment: When combined with a low clinical probability, a D dimer value of <0.50 ug/mL FEU is considered negative for DVT and PE (negative predictive value of 98%, sensitivity of 97%).If this test is not being used to help rule out DVT and PE, then the following reference range should be utilized: 0.00 - 0.59 ug/mL FEU.The D-Dimer assay is intended for use as an aid in the diagnosis of venous thromboembolism (DVT and PE) and the results should be interpreted in conjunction with the patient's medical history, clinical presentation, and other findings.Elevated levels of D-dimer activity can be seen in any state of coagulation activation and is not recommended in patients with therapeutic dose anticoagulant therapy for >24 hours, fibrinolytic therapy within the previous 7 days, trauma or surgery within the previous 4 weeks, disseminated malignancies, aortic aneurysm, sepsis, severe infections, pneumonia, severe skin infections, liver cirrhosis, advanced age, coronary disease, diabetes, and .A very low percentage of patients with DVT may yield D-dimer results below the cutoff of 0.5 ug/mL FEU. This is known to be more prevalent in patients with distal DVT. Performed By: #### D MARIJA, CRP ####[address] , [place] [address] lab Director: Calin Tapia MD Magnesiumon Magnesium [Mass/Vol] 2.3 mg/dL Normal 1.6-2.6 [facility] Comment on above: Performed By: #### M G, CDP, CP ####[address] [facility] lab Director: Calin Tapia MD UA w/Reflex Cultureon 2023 Bilirubin, SemiQt,Ur Negative Normal NEG [facility] Comment on above: Performed By: #### U MICAO, UAX ####[address] [place] [address] lab Director: Calin Tapia MD Blood, Urine Negative Normal NEG [facility] Comment on above: Performed By: #### U MICAO, UAX ####[address] , [place] 1704[address] Lab Director: Calin Tapia MD Clarity (U) Clear Normal CLEAR [facility] Comment on above: Performed By: #### U MICAO, UAX ####[address] , [place] 15[address] Lab Director: Calin Tapia MD Color (U) Yellow Normal YEL [facility] Comment on above: Performed By: #### U MICAO, UAX ####[address] [place] [address] Lab Director: Calin Tapia MD Glucose Ql (U) Negative Normal NEG [facility] Comment on above: Performed By: #### U MICAO, UAX ####[address] , [place] 4286[address] Lab Director: Calin Tapia MD Ketones Ql (U) Negative Normal NEG [facility] Comment on above: Performed By: #### U MICAO, UAX ####[address] [place] [address] Lab Director: Calin Tapia MD Leukocyte esterase Test strip Ql (U) Negative Normal NEG [facility] Comment on above: Performed By: #### U MICAO, UAX ####[address] , [place] 3[address] Lab Director: Calin Tapia MD Nitrite,Ur Negative Normal NEG [facility] Comment on above: Performed By: #### U MICAO, UAX ####[address] , [place] 358[address]83 Lab Director: Calin Tapia MD PH,Ur 6.5 Normal 5.0-9.0 [facility] Comment on above: Performed By: #### U MICAO, UAX ####[address] , [place] 7[address] lab Director: Calin Tapia MD Protein Ql (U) Negative Normal NEG [facility] Comment on above: Performed By: #### U MICAO, UAX ####[address] , [place] 8[address] lab Director: Calin Tapia MD Spec. [place],Ur 1.015 Normal 1.010-1.020 [facility] Comment on above: Performed By: #### U MICAO, UAX ####[address] [place] [address] lab Director: Calin Tapia MD Urobilinogen,Ur Normal Normal 0.0-1.0 [facility] Comment on above: Performed By: #### U KATHERINEO, UAX ####[address] , [place] 410[address] lab Director: Calin Tapia MD Urinalysis,Microon Epithelial cells LM Ql (Urine sed) 0 TO 2 Normal 0-25 [facility] Comment on above: Performed By: #### U MICAO, UAX ####[address] , [place] 40[address] lab Director: Calin Tapia MD Urine RBC's 0 TO 2 Normal 0-2 [facility] Comment on above: Performed By: #### U MICAO, UAX ####[address] , [place] 2632483 lab Director: Calin Tapia MD Urine WBC's 0 TO 2 Normal 0-5 [facility] Comment on above: Performed By: #### U MICAO, UAX ####[address] , [place] 9[address] lab Director: Calin Tapia MD BETA HCG, QUAL, BLOODon 10-0 HCG ( test) Ql Negative [facility] CBCon 05-07-2024 ABSOLUTE BAS 0.1 10*3/uL Normal 0.0-0.2 [facility] Comment on above: Performed By: #### A CBC #### Testing performed at [address] [place] [address] ABSOLUTE EOS 0.1 10*3/uL Normal 0.0-0.7 [facility] Comment on above: Performed By: #### A CBC #### Testing performed at [address] [place] [address] ABSOLUTE NEUTROPHIL COUNT 4.8 10*3/uL Normal 1.4-6.5 [facility] Comment on above: Performed By: #### A CBC #### Testing performed at [address] [place] [address] Basophils/100 WBC (Bld) 0.8 % Normal 0.0-2.0 [facility] Comment on above: Performed By: #### A CBC #### Testing performed at [address] [place] [address] DTYPE AUTO DIFF Normal [facility] Comment on above: Performed By: #### A CBC #### Testing performed at [address] [place] [address] Eosinophils/100 WBC (Bld) 0.8 % Normal 0.0-11.0 [facility] Comment on above: Performed By: #### A CBC #### Testing performed at [address] [place] [address] Lymphocytes (Bld) [#/Vol] 1.6 10*3/uL Normal 1.2-3.4 [facility] Comment on above: Performed By: #### A CBC #### Testing performed at [address] [place] [address] Lymphocytes/100 WBC (Bld) 22.8 % Normal 20.0-55.0 [facility] Comment on above: Performed By: #### A CBC #### Testing performed at [address] [address] Monocytes (Bld) [#/Vol] 0.5 10*3/uL Normal 0.0-0.7 [facility] Comment on above: Performed By: #### A CBC #### Testing performed at [address] [address] Monocytes/100 WBC (Bld) 6.6 % Normal 0.0-10.0 [facility] Comment on above: Performed By: #### A CBC #### Testing performed at [address] [address] Neutrophils/100 WBC (Bld) 69.0 % Normal 37.0-75.0 [facility] Comment on above: Performed By: #### A CBC #### Testing performed at [address] [address] Erythrocyte distribution width (RBC) [Ratio] 12.7 % Normal 11.5-14.5 [facility] Comment on above: Performed By: #### A CBC #### Testing performed at [address] [address] Hematocrit (Bld) [Volume fraction] 35.6 % Low 36.0-48.0 [facility] Comment on above: Performed By: #### A CBC #### Testing performed at [address] [address] Hemoglobin (Bld) [Mass/Vol] 12.6 g/dL Normal 12.0-16.0 [facility] Comment on above: Performed By: #### A CBC #### Testing performed at [address] [address] MCH (RBC) [Entitic mass] 34.2 pg Normal 26.0-35.0 [facility] Comment on above: Performed By: #### A CBC #### Testing performed at [address] [address] MCHC (RBC) [Mass/Vol] 35.3 g/dL Normal 27.0-37.0 [facility] Comment on above: Performed By: #### A CBC #### Testing performed at [address] [address] MCV (RBC) [Entitic vol] 96.8 fL Normal 80.0-100.0 [facility] Comment on above: Performed By: #### A CBC #### Testing performed at [address] [address] Platelet mean volume (Bld) [Entitic vol] 7.3 fL Low 7.4-11.0 [facility] Comment on above: Performed By: #### A CBC #### Testing performed at [address] [address] Platelets (Bld) [#/Vol] 231 10*3/uL Normal 130-400 [facility] Comment on above: Performed By: #### A CBC #### Testing performed at [address] [address] RBC (Bld) [#/Vol] 3.68 10*6/uL Low 4.0-5.4 [facility] Comment on above: Performed By: #### A CBC #### Testing performed at [address] [address] WBC (Bld) [#/Vol] 6.9 10*3/uL Normal 3.6-11.0 [facility] Comment on above: Performed By: #### A CBC #### Testing performed at [address] [address] CBC, EDIF, PLATELETon 2023 ABSOLUTE BASOPHIL COUNT 0.1 10*3/uL 0.0 - 0.2 10*3/uL [facility] Basophils/100 WBC (Bld) 0.8 % 0.0 - 2.0 % [facility] Differential cell count method Nom (Bld) AUTO DIFF % [facility] Eosinophils (Bld) [#/Vol] 0.1 10*3/uL 0.0 - 0.7 10*3/uL [facility] Eosinophils/100 WBC (Bld) 0.8 % 0.0 - 11.0 % [facility] Erythrocyte distribution width (RBC) [Ratio] 12.7 % 11.5 - 14.5 % [facility] Hematocrit (Bld) [Volume fraction] 35.6 % Low 36.0 - 48.0 % [facility] Hemoglobin (Bld) [Mass/Vol] 12.6 g/dL [facility] Interpretation and review of laboratory results Abnormal [facility] Lymphocytes (Bld) [#/Vol] 1.6 10*3/uL 1.2 - 3.4 10*3/uL [facility] Lymphocytes/100 WBC (Bld) 22.8 % 20.0 - 55.0 % [facility] MCH (RBC) [Entitic mass] 34.2 pg 26.0 - 35.0 PG [facility] MCHC (RBC) [Mass/Vol] 35.3 g/dL [facility] MCV (RBC) [Entitic vol] 96.8 fL [facility] Monocytes (Bld) [#/Vol] 0.5 10*3/uL 0.0 - 0.7 10*3/uL [facility] Monocytes/100 WBC (Bld) 6.6 % 0.0 - 10.0 % [facility] Neutrophils (Bld) [#/Vol] 4.8 10*3/uL 1.4 - 6.5 10*3/uL [facility] Neutrophils/100 WBC (Bld) 69.0 % 37.0 - 75.0 % [facility] Platelet mean volume (Bld) [Entitic vol] 7.3 fL Low [facility] Platelets (Bld) [#/Vol] 231 10*3/uL 130 - 400 10*3/uL [facility] RBC (Bld) [#/Vol] 3.68 10*6/uL Low 4.0 - 5.4 10*6/uL [facility] WBC (Bld) [#/Vol] 6.9 10*3/uL 3.6 - 11.0 10*3/uL [facility] CMP FASTINGon 05-07-2024 A:G RATIO 1.4 RATIO Normal 1.3-2.2 [facility] Comment on above: Performed By: #### A CBC #### Testing performed at [address] [address] ALBUMIN 4.2 G/dl Normal 3.5-5.0 [facility] Comment on above: Performed By: #### A CBC #### Testing performed at [address] [address] ALP [Catalytic activity/Vol] 44 U/L Normal 38-126 [facility] Comment on above: Performed By: #### A CBC #### Testing performed at [address] [address] ALT [Catalytic activity/Vol] 17 U/L Normal <35 [facility] Comment on above: Performed By: #### A CBC #### Testing performed at [address] [address] AST [Catalytic activity/Vol] 24 U/L Normal 14-36 [facility] Comment on above: Performed By: #### A CBC #### Testing performed at [address] [address] Bilirubin [Mass/Vol] 0.7 mg/dL Normal 0.2-1.[address] [facility] Comment on above: Performed By: #### A CBC #### Testing performed at [address] [address] Calcium [Mass/Vol] 8.7 mg/dL Normal 8.4-10.2 [facility] Comment on above: Performed By: #### A CBC #### Testing performed at [address] [address] Chloride [Moles/Vol] 110 mmol/L High 98-[address] [facility] Comment on above: Result Comment: Pleshasta hollingsworth note: Triglyceride levels of 600mg/dL or higher may positively bias chloride results by approximately 2.1 mmol Performed By: #### A CBC #### Testing performed at [place] [address] [place] [address] CO2 [Moles/Vol] 23 mmol/L Normal 22-30 [facility] Comment on above: Performed By: #### A CBC #### Testing performed at [address] [address] Creatinine [Mass/Vol] 0.70 mg/dL Normal 0.7-1.2 [facility] Comment on above: Performed By: #### A CBC #### Testing performed at [address] [address] EST. GFR, 127 ml/min/1.73sq.m [facility] Comment on above: Performed By: #### A CBC #### Testing performed at [address] [address] EST. GFR,Non 105 ml/min/1.73sq.m [facility] Comment on above: Performed By: #### A CBC #### Testing performed at [address] [address] GFR Information Average GFR for 18-2 9 years old = 116. Normal [facility] Comment on above: Result Comment: [employer] Supervisor silvano Kidney disease, GFR = <60. Kidney failure, GFR = <15. The GFR estimate is not adjusted for extreme body surface area or acute process, nor has it been validated for women or ethnic groups other than and . Performed By: #### A CBC #### Testing performed at [address] [address] Glucose [Mass/Vol] 86 mg/dL Normal 70-100 [facility] Comment on above: Result Comment: NORMAL <100 mg/dL PREDIABETES 101-126 mg/dL DIABETES 126 mg/dL or higher Performed By: #### A CBC #### Testing performed at [address] [address] Potassium [Moles/Vol] 4.3 mmol/L Normal 3.5-5.1 [facility] Comment on above: Performed By: #### A CBC #### Testing performed at [address] [address] Protein [Mass/Vol] 7.2 g/dL Normal 6.3-8.2 [facility] Comment on above: Performed By: #### A CBC #### Testing performed at [address] [address] Sodium [Moles/Vol] 140 mmol/L Normal 137-145 [facility] Comment on above: Performed By: #### A CBC #### Testing performed at [address] [address] Urea nitrogen [Mass/Vol] 8 mg/dL Normal 7-20 [facility] Comment on above: Performed By: #### A CBC #### Testing performed at [address] [address] COMPREHENSIVE METABOLIC PANE Akash 05-07-2024 Albumin [Mass/Vol] 4.2 G/dl 3.5 - 5.0 G/dl [facility] Albumin/Globulin [Mass ratio] 1.4 {ratio} [facility] ALP [Catalytic activity/Vol] 44 U/L [facility] ALT [Catalytic activity/Vol] 17 U/L NINF [facility] AST [Catalytic activity/Vol] 24 U/L [facility] Bilirubin [Mass/Vol] 0.7 mg/dL [facility] Calcium [Mass/Vol] 8.7 mg/dL [facility] Chloride [Moles/Vol] 110 mmol/L High [facility] Comment on above: Please note: Triglyc eride levels of 600mg/dL or higher may positively bias chloride results by approximately 2.1 mmol CO2 [Moles/Vol] 23 mmol/L [facility] Creatinine [Mass/Vol] 0.70 mg/dL [facility] GFR COMMENT Average GFR for 18-2 9 years old = 116. [facility] Comment on above: Chronic Kidney disea se, GFR = <60. Kidney failure, GFR = <15. The GFR estimate is not adjusted for extreme body surface area or acute process, nor has it been validated for women or ethnic groups other than and . GFR/1.73 sq M.predicted among blacks MDRD (S/P/Bld) [Vol rate/Area] 127 mL/min/{1.73_m2} ml/min/1.73sq .m [facility] GFR/1.73 sq M.predicted among non-blacks MDRD (S/P/Bld) [Vol rate/Area] 105 mL/min/{1.73_m2} ml/min/1.73sq .m [facility] Glucose post fast [Mass/Vol] 86 mg/dL [facility] Comment on above: NORMAL <100 mg/dL PREDIABETES 101-126 mg/dL DIABETES 126 mg/dL or higher Interpretation and review of laboratory results Abnormal [facility] Potassium [Moles/Vol] 4.3 mmol/L [facility] Protein [Mass/Vol] 7.2 g/dL [facility] Sodium [Moles/Vol] 140 mmol/L [facility] Urea nitrogen [Mass/Vol] 8 mg/dL [facility] HCG ( test) Qlon [facility] HCG ( test) Ql (U)o n 05-07-2024 [facility] HCG QUALITATIVE, URINEon HCG ( test) Ql (U) Negative [facility] LIPASEon 05-07-2024 Lipase [Catalytic activity/Vol] 44 U/L 23 - 300 U/L [facility] LIPASE,SERUMon 05-07-2024 LIPASE,SERUM 44 U/L Normal 23-300 [facility] Comment on above: Performed By: #### A CBC #### [place] [address] No Panel Informationon 05-07 [facility] SERUM HCG QUALon 05-07-2024 SERUM BETA HCG,QUAL Negative Normal [facility] Comment on above: Performed By: #### A CBC #### [place] [address] URINALYSIS, MACROon 05-07-20 24 Bilirubin Ql (U) Negative NEGATIVE [facility] Clarity (U) CLEAR CLEAR [facility] Color (U) LIGHT YELLOW Abnormal YELLOW [facility] Glucose Test strip (U) [Mass/Vol] Negative NEGATIVE mg/dl [facility] Hemoglobin Ql (U) Negative NEGATIVE [facility] Interpretation and review of laboratory results Abnormal [facility] Ketones (U) [Mass/Vol] Negative NEGATIVE mg/dl [facility] Leukocyte esterase Test strip Ql (U) Negative NEGATIVE [facility] Nitrite Ql (U) Negative NEGATIVE [facility] pH (U) 7.5 [pH] High 5.0 - 7.0 [facility] Protein Ql (U) Negative NEGATIVE mg/dl [facility] Specific gravity (U) [Rel density] 1.010 1.010 - 1.025 [facility] Urobilinogen (U) [Mass/Vol] 0.2 mg/dL [facility] URINE HCG QUALon 05-07-2024 Beta HCG ( test) Ql (U) Negative Normal [facility] URINE MACROSCOPICon 05-07-20 24 Bilirubin Ql (U) Negative Normal NEGATIVE [facility] Clarity (U) CLEAR Normal CLEAR [facility] Color (U) LIGHT YELLOW Abnormal YELLOW [facility] Glucose Ql (U) Negative Normal NEGATIVE [facility] pH (U) 7.5 [pH] High 5.0-7.0 [facility] URINE HEMOGLOBIN Negative Normal NEGATIVE [facility] URINE KETONE Negative Normal NEGATIVE [facility] URINE LEUKOTEST Negative Normal NEGATIVE [facility] URINE NITRATES Negative Normal NEGATIVE [facility] URINE SPEC GRAVITY 1.010 Normal 1.010-1.025 [facility] URINE TOTAL PROTEIN Negative Normal NEGATIVE [facility] Urobilinogen Qn (U) 0.2 {Shane'U}/dL Normal 0.2-1.0 [facility] URINE MICROSCOPICon 05-07-20 24 Bacteria LM.HPF (Urine sed) [#/Area] Negative NEGATIVE [facility] Casts LM.LPF (Urine sed) [#/Area] NONE NONE /LPF [facility] Crystals LM Nom (Urine sed) NONE NONE [facility] Epithelial cells LM Ql (Urine sed) 1 TO 5 /HPF [facility] Mucus Ql (Urine sed) Negative NEGATIVE [facility] RBC LM.HPF (Urine sed) [#/Area] Negative NEGATIVE /HPF [facility] Urine sediment comments LM Mosse (Urine sed) CULTURE CRITERIA NOT MET, NO CULTURE PERFORMED. [facility] WBC LM.HPF (Urine sed) [#/Area] 1 TO 5 NEGATIVE /HPF [facility] Bacteria LM.HPF (Urine sed) [#/Area] Negative Normal NEGATIVE [facility] CASTS NONE Normal NONE [facility] CRYSTAL NONE Normal NONE [facility] Epithelial cells LM Ql (Urine sed) 1 TO 5 Normal [facility] Mucus Ql (Urine sed) Negative Normal NEGATIVE [facility] URINE COMMENT CULTURE CRITERIA NOT MET, NO CULTURE PERFORMED. Normal [facility] URINE RBC'S Negative Normal NEGATIVE [facility] URINE WBC'S 1 TO 5 Normal NEGATIVE [facility] CBC with Auto Differentialon 05-02-2024 Basophils (Bld) [#/Vol] 0.09 10*3/uL [facility] Basophils/100 WBC (Bld) 1 % 0 - 2 % [facility] Eosinophils (Bld) [#/Vol] 0.39 10*3/uL [facility] Eosinophils/100 WBC (Bld) 4 % 1 - 4 % [facility] Erythrocyte distribution width (RBC) [Ratio] 11.7 % Low 11.8 - 14.4 % [facility] Hematocrit (Bld) [Volume fraction] 37.2 % 36.3 - 47.1 % [facility] Hemoglobin (Bld) [Mass/Vol] 13.6 g/dL 11.9 - 15.1 g/dL [facility] Immature granulocytes (Bld) [#/Vol] [facility] Immature granulocytes/100 WBC (Bld) 0 % 0 [facility] Interpretation and review of laboratory results Abnormal [facility] Lymphocytes/100 WBC (Bld) 36 % 24 - 43 % [facility] Lymphocytes/100 WBC (Bld) 3.47 % [facility] MCH (RBC) [Entitic mass] 34.0 pg High 25.2 - 33.5 pg [facility] MCHC (RBC) [Mass/Vol] 36.6 g/dL High 28.4 - 34.8 g/dL [facility] MCV (RBC) [Entitic vol] 93.0 fL 82.6 - 102.9 fL [facility] Monocytes/100 WBC (Bld) 6 % 3 - 12 % [facility] Monocytes/100 WBC (Bld) 0.62 % [facility] Neutrophils/100 WBC (Bld) 53 % 36 - 65 % [facility] Nucleated RBC/100 WBC (Bld) [Ratio] 0.0 % 0.0 per 100 WBC [facility] Platelet mean volume (Bld) [Entitic vol] 9.9 fL 8.1 - 13.5 fL [facility] Platelets (Bld) [#/Vol] 278 10*3/uL [facility] RBC (Bld) [#/Vol] 4.00 10*6/uL 3.95 - 5.1 1 m/uL [facility] Segmented neutrophils/100 WBC (Bld) 5.18 % [facility] WBC other (Bld) [#/Vol] 9.8 [facility] CBC with Diffon 05-02-2024 Abs. Basophil 0.09 k/uL Normal 0.00-0.20 [place] Comment on above: Performed By: #### C DP, TIMOTHY CP, LIP ####[facility] , [place] [id number] Lab Director: Calin Tapia MD Abs.Imm.Granulocyte <0.03 Normal 0.00-0.30 [facility] Comment on above: Performed By: #### C DP, TROPI CP, LIP ####[facility] , [place] [id number] Lab Director: Calin Tapia MD Abs.Neutrophil (Seg) 5.18 k/uL Normal 1.50-8.10 [facility] Comment on above: Performed By: #### C DP, TROPI, CP, LIP ####[address] , [place] [id number] Lab Director: Calin Tapia MD Basophils/100 WBC (Bld) 1 % Normal 0-2 [facility] Comment on above: Performed By: #### C DP, TROPI, CP, LIP ####[address] , [facility] Lab Director: Calin Tapia MD Eosinophils (Bld) [#/Vol] 0.39 10*3/uL Normal 0.00-0.44 [facility] Comment on above: Performed By: #### C DP, TROPI, CP, LIP ####[address] , [place] [address] Lab Director: Calin Tapia MD Eosinophils/100 WBC (Bld) 4 % Normal 1-4 [facility] Comment on above: Performed By: #### C DP, TROPI, CP, LIP ####[address] , [facility] Lab Director: Calin Tapia MD Erythrocyte distribution width (RBC) [Ratio] 11.7 % Low 11.8-14.4 [facility] Comment on above: Performed By: #### C DP, TROPI, CP, LIP ####[address] , [facility] Lab Director: Calin Tapia MD Hematocrit (Bld) [Volume fraction] 37.2 % Normal 36.3-47.1 [facility] Comment on above: Performed By: #### C DP, TROPI, CP, LIP ####[address] , [place] [id number] Lab Director: Calin Tapia MD Hemoglobin (Bld) [Mass/Vol] 13.6 g/dL Normal 11.9-15.1 [facility] Comment on above: Performed By: #### C DP, TROPI, CP, LIP ####[address] , [place] [phone] Director: Calin Tapia MD Immature granulocytes/100 WBC (Bld) 0 % Normal 0 [facility] Comment on above: Performed By: #### C DP, TROPI, CP, LIP ####[address] , [facility]83419)[phone] Director: Calin Tapia MD Lymphocytes (Bld) [#/Vol] 3.47 10*3/uL Normal 1.10-3.70 [facility] Comment on above: Performed By: #### C DP, TROPI, CP, LIP ####[address] , [place] [address])[phone] Director: Calin Tapia MD Lymphocytes/100 WBC (Bld) 36 % Normal 24-43 [facility] Comment on above: Performed By: #### C DP, TROPI, CP, LIP ####[address] , [phone] Director: Calin Tapia MD MCH (RBC) [Entitic mass] 34.0 pg High 25.2-33.5 [facility] Comment on above: Performed By: #### C DP, TROPI, CP, LIP ####[address] , [facility]83[facility])[phone] Director: Calin Tapia MD MCHC (RBC) [Mass/Vol] 36.6 g/dL High 28.4-34.8 [facility] Comment on above: Performed By: #### C DP, TROPI, CP, LIP ####[address] , [place] [phone] Lab Director: Calin Tapia MD MCV (RBC) [Entitic vol] 93.0 fL Normal 82.6-102.9 [facility] Comment on above: Performed By: #### C DP, TROPI, CP, LIP ####[address] , [place] [phone] Director: Calin Tapia MD Monocytes (Bld) [#/Vol] 0.62 10*3/uL Normal 0.10-1.20 [facility] Comment on above: Performed By: #### C DP, TROPI, CP, LIP ####[address] , [place] [address])[phone] Director: Calin Tapia MD Monocytes/100 WBC (Bld) 6 % Normal 3-12 [facility] Comment on above: Performed By: #### C DP, TROPI, CP, LIP ####[address] , [facility]83[facility])[phone] Director: Calin Tapia MD Neutrophil (Seg) 53 % Normal 36-65 [facility] Comment on above: Performed By: #### C DP, TROPI, CP, LIP ####[address] , [place] [address])[phone] Director: Calin Tapia MD NRBC Automated 0.0 per 100 WBC Normal 0.0 [facility] Comment on above: Performed By: #### C DP, TROPI, CP, LIP ####[address] , [place] [phone] Director: Calin Tapia MD Platelet mean volume (Bld) [Entitic vol] 9.9 fL Normal 8.1-13.5 [facility] Comment on above: Performed By: #### C DP, TROPI, CP, LIP ####[address] , [place] [phone] Director: Calin Tapia MD Platelets (Bld) [#/Vol] 278 10*3/uL Normal 138-453 [facility] Comment on above: Performed By: #### C DP, TROPI, CP, LIP ####[address] [place] [address] Lab Director: Calin Tapia MD RBC (Bld) [#/Vol] 4.00 10*6/uL Normal 3.95-5.11 [facility] Comment on above: Performed By: #### C DP, TROPI, CP, LIP ####[address] , [place] [phone] Director: Calin Tapia MD WBC (Bld) [#/Vol] 9.8 10*3/uL Normal 3.5-11.3 [facility] Comment on above: Performed By: #### C DP, TROPI, CP, LIP ####[address] [place] [address] Lab Director: Calin Tapia MD Comp Metabolic Profon 2023 Albumin [Mass/Vol] 4.6 g/dL Normal 3.5-5.2 [facility] Comment on above: Performed By: #### C DP, TROPI, CP, LIP ####[address] , [place] [phone] Director: Calin Tapia MD Albumin/Glob Ratio 2.0 Normal 1.0-2.5 [facility] Comment on above: Performed By: #### C DP, TROPI, CP, LIP ####[address] , [place] [address] Lab Director: Calin Tapia MD Alkaline Phos 55 U/L Normal 35-104 [place] Comment on above: Performed By: #### C DP, TROPI, CP, LIP ####[address] , [place] [phone] Lab Director: Calin Tapia MD ALT [Catalytic activity/Vol] 18 U/L Normal -35 [facility] Comment on above: Performed By: #### C DP, TROPI, CP, LIP ####[address] , [place] [phone] Lab Director: Calin Tapia MD Anion gap [Moles/Vol] 10 mmol/L Normal -16 [facility] Comment on above: Performed By: #### C DP, TROPI, CP, LIP ####[address] , [place] [phone] Lab Director: Calin Tapia MD AST [Catalytic activity/Vol] 22 U/L Normal 35 [facility] Comment on above: Performed By: #### C DP, TROPI, CP, LIP ####[address] , [place] 8800383 Lab Director: Calin Tapia MD Bilirubin [Mass/Vol] 0.3 mg/dL Normal 0.00-1.20 [facility] Comment on above: Performed By: #### C DP, TROPI, CP, LIP ####[address] , [place] [phone] Lab Director: Calin Tapia MD BUN/CRE Ratio 13 Normal -20 [place] Comment on above: Performed By: #### C DP, TROPI, CP, LIP ####[address] , [place] [address]83 Lab Director: Calin Tapia MD Calcium [Mass/Vol] 9.1 mg/dL Normal 8.6-10.4 [facility] Comment on above: Performed By: #### C DP, TROPI, CP, LIP ####[address] , [place] [phone] Lab Director: Calin Tapia MD Chloride [Moles/Vol] 104 mmol/L Normal 98-107 [facility] Comment on above: Performed By: #### C DP, TROPI, CP, LIP ####[facility] [place] , [place] [phone] Lab Director: Calin Tapia MD CO2 [Moles/Vol] 22 mmol/L Normal 20-31 [facility] Comment on above: Performed By: #### C DP, TROPI, CP, LIP ####[facility] [place] [address] Lab Director: Calin Tapia MD Creatinine [Mass/Vol] 0.8 mg/dL Normal 0.50-0.90 [facility] Comment on above: Performed By: #### C DP, TROPI, CP, LIP ####[facility] [place] [address] Lab Director: Calin Tapia MD GFR/1.73 sq M.predicted among non-blacks MDRD (S/P/Bld) [Vol rate/Area] mL/min/{1.73_m2} Normal >60 [facility] Comment on above: Result Comment: Thes e results are not intended for use in patients <18 years of age.eGFR results are calculated without a race factor using the 2020 CKD-EPI equation.Careful clinical correlation is recommended, particularly when comparing to results calculated using previous equations.The CKD-EPI equation is less accurate in patients with extremes of muscle mass, extra-renal metabolism of creatine, excessive creatine ingestion, or following therapy that affects renal tubular secretion. Performed By: #### C DP, TROPI, CP, LIP ####[facility] , [place] [address]83 Lab Director: Calin Tapia MD Glucose [Mass/Vol] 89 mg/dL Normal 74-99 [facility] Comment on above: Performed By: #### C DP, TROPI, CP, LIP ####[facility] , [place] [address]83 Lab Director: Calin Tapia MD Potassium [Moles/Vol] 3.7 mmol/L Normal 3.7-5.3 [facility] Comment on above: Result Comment: Spec imen hemolysis has exceeded the interference as defined by Christiano. Value may be falsely increased. Suggest recollection if clinically indicated. Performed By: #### C DP, TROPI, CP, LIP ####[facility] , [place] [address]656[address] Lab Director: Calin Tapia MD Protein [Mass/Vol] 6.9 g/dL Normal 6.6-8.7 [facility] Comment on above: Performed By: #### C DP, TROPI, CP, LIP ####[address] [place] [address] lab Director: Calin Tapia MD Sodium [Moles/Vol] 136 mmol/L Normal 136-145 [facility] Comment on above: Performed By: #### C DP, TROPI, CP, LIP ####[address] , [place] [phone] Lab Director: Calin Tapia MD Urea nitrogen [Mass/Vol] 10 mg/dL Normal 6-20 [facility] Comment on above: Performed By: #### C DP, TROPI, CP, LIP ####[address] [place] [address] Lab Director: Calin Tapia MD Comprehensive Metabolic Pane [facility] 05-02-2024 Albumin [Mass/Vol] 4.6 g/dL 3.5 - 5.2 g/dL [facility] Albumin/Globulin [Mass ratio] 2.0 {ratio} 1.0 - 2.5 [facility] ALP [Catalytic activity/Vol] 55 U/L 35 - 104 U/L [facility] ALT [Catalytic activity/Vol] 18 U/L 10 - 35 U/L [facility] Anion gap [Moles/Vol] 10 mmol/L 9 - 16 mmol/L [facility] AST [Catalytic activity/Vol] 22 U/L 10 - 35 U/L [facility] Bilirubin [Mass/Vol] 0.3 mg/dL 0.00 - 1.20 mg/dL [facility] Calcium [Mass/Vol] 9.1 mg/dL 8.6 - 10. 4 mg/dL [facility] Chloride [Moles/Vol] 104 mmol/L 98 - 10 7 mmol/L [facility] CO2 [Moles/Vol] 22 mmol/L 20 - 31 mmol/L [facility] Creatinine [Mass/Vol] 0.8 mg/dL 0.50 - 0.90 mg/dL [facility] Est, Glom Filt Rate - PINF [facility] Comment on above: These results [...] [Mass/Vol] 89 mg/dL 74 - 99 mg/dL [facility] Potassium [Moles/Vol] 3.7 mmol/L 3.7 - 5.3 mmol/L [facility] Comment on above: Specimen hemolysis h as exceeded the interference as defined by Christiano. Value may be falsely increased. Suggest recollection if clinically indicated. Protein [Mass/Vol] 6.9 g/dL 6.6 - 8.7 g/dL [facility] Sodium [Moles/Vol] 136 mmol/L 136 - 145 mmol/L [facility] Urea nitrogen [Mass/Vol] 10 mg/dL 6 - 20 mg/dL [facility] Urea nitrogen/Creatinine [Mass ratio] 13 mg/mg 9 - 20 [facility] Lipaseon 05-02-2024 Lipase [Catalytic activity/Vol] 22 U/L 13 - 60 U/L [facility] Lipase [Catalytic activity/Vol] 22 U/L Normal 13-60 [facility] Comment on above: Performed By: #### C DP, TROPLillian, CP, LIP ####[facility] , [place] [id number] lab Director: Calin Tapia MD No Panel Informationon 05-02 [facility] Troponinon 05-02-2024 Troponin I.cardiac High sensitivity method [Mass/Vol] ng/L 0 - 14 ng/L [facility] Comment on above: High Sensitivity Tro ponin values cannot be compared with other Troponin methodologies. Troponin, High Sens <6 Normal 0-14 [facility] Comment on above: Result Comment: High Sensitivity Troponin values cannot be compared with other Troponin methodologies. Performed By: #### C DP, TROPI, CP, LIP ####[facility] [place] [address] lab Director: Calin Tapia MD Portable XR Chest AP single viewon 05-01-2024 No acute cardiopulmonary abnormality. [facility] RIS CONSOLIDATED EXAMINATION: ONE XRAY VIEW OF THE CHEST 05/01/2024 10:16 pm COMPARISON: 03/18/2024 HISTORY: ORDERING SYSTEM PROVIDED HISTORY: CP TECHNOLOGIST PROVIDED HISTORY: CP FINDINGS: The heart is normal in size. There is no focal pulmonary consolidation. There is no pleural effusion or pneumothorax. The visualized bones are unremarkable. [facility] RIS CONSOLIDATED Saran Naik MD - 05/01/2024 EXAMINATION: ONE XRAY VIEW OF THE CHEST 05/01/2024 10:16 pm COMPARISON: 03/18/2024 HISTORY: ORDERING SYSTEM PROVIDED HISTORY: CP TECHNOLOGIST PROVIDED HISTORY: CP FINDINGS: The heart is normal in size. There is no focal pulmonary consolidation. There is no pleural effusion or pneumothorax. The visualized bones are unremarkable. IMPRESSION: No acute cardiopulmonary abnormality. [facility] Radiology Study observation (narrative) [facility] Portable XR Chest AP single viewOrdered By: Saran Naik on 05-01-2024 [facility] Work Phone: XR CHEST PORTABLEon 05-01-20 24 XR CHEST PORTABLE Normal [facility] CMPon 04-16-2024 Albumin [Mass/Vol] 4.3 g/dL 3.5 - 5.2 g/dL [facility] Albumin/Globulin [Mass ratio] 2.0 {ratio} 1.0 - 2.5 [facility] ALP [Catalytic activity/Vol] 53 U/L 35 - 104 U/L [facility] ALT [Catalytic activity/Vol] 15 U/L 10 - 35 U/L [facility] Anion gap [Moles/Vol] 9 mmol/L 9 - 16 mmol/L [facility] AST [Catalytic activity/Vol] 20 U/L 10 - 35 U/L [facility] Bilirubin [Mass/Vol] 0.3 mg/dL 0.00 - 1.20 mg/dL [facility] Calcium [Mass/Vol] 9.2 mg/dL 8.6 - 10. 4 mg/dL [facility] Chloride [Moles/Vol] 106 mmol/L 98 - 10 7 mmol/L [facility] CO2 [Moles/Vol] 23 mmol/L 20 - 31 mmol/L [facility] Creatinine [Mass/Vol] 0.7 mg/dL 0.50 - 0.90 mg/dL [facility] Est, Glom Filt Rate - [facility] Comment on above: These results are [...] [Mass/Vol] 89 mg/dL 74 - 99 mg/dL [facility] Interpretation and review of laboratory results Abnormal [facility] Potassium [Moles/Vol] 3.7 mmol/L 3.7 - 5.3 mmol/L [facility] Protein [Mass/Vol] 6.4 g/dL Low 6.6 - 8.7 g/dL [facility] Sodium [Moles/Vol] 138 mmol/L 136 - 145 mmol/L [facility] Urea nitrogen [Mass/Vol] 10 mg/dL 6 - 20 mg/dL [facility] Urea nitrogen/Creatinine [Mass ratio] 14 mg/mg 9 - 20 [facility] Comp Metabolic Profon 2023 Albumin [Mass/Vol] 4.3 g/dL Normal 3.5-5.2 [facility] Comment on above: Performed By: #### L IP, CDP, CP ####[address] , [place] [id number] Lab Director: Calin Tapia MD Albumin/Glob Ratio 2.0 Normal 1.0-2.5 [facility] Comment on above: Performed By: #### L IP, CDP, CP ####[address] , [place] [phone] Lab Director: Calin Tapia MD Alkaline Phos 53 U/L Normal 35-104 [place] Comment on above: Performed By: #### L IP, CDP, CP ####[address] , [place] [id number] Lab Director: Calin Tapia MD ALT [Catalytic activity/Vol] 15 U/L Normal 10-35 [facility] Comment on above: Performed By: #### L IP, CDP, CP ####[address] , [place] 617[address] Lab Director: Calin Tapia MD Anion gap [Moles/Vol] 9 mmol/L Normal 9-16 [facility] Comment on above: Performed By: #### L IP, CDP, CP ####[address] , [place] [phone] Lab Director: Calin Tapia MD AST [Catalytic activity/Vol] 20 U/L Normal 10-35 [facility] Comment on above: Performed By: #### L IP, CDP, CP ####[address] [place] [address] Lab Director: Calin Tapia MD Bilirubin [Mass/Vol] 0.3 mg/dL Normal 0.00-1.20 [facility] Comment on above: Performed By: #### L IP, CDP, CP ####[address] [place] [address] lab Director: Calin Tapia MD BUN/CRE Ratio 14 Normal 9-20 [place] Comment on above: Performed By: #### L IP, CDP, CP ####[address] , [place] [phone] lab Director: Calin Tapia MD Calcium [Mass/Vol] 9.2 mg/dL Normal 8.6-10.4 [facility] Comment on above: Performed By: #### L IP, CDP, CP ####[address] , [place] [phone] lab Director: Calin Tapia MD Chloride [Moles/Vol] 106 mmol/L Normal 98-107 [facility] Comment on above: Performed By: #### L IP, CDP, CP ####[address] , [place] 8[address] lab Director: Calin Tapia MD CO2 [Moles/Vol] 23 mmol/L Normal 20-31 [facility] Comment on above: Performed By: #### L IP, CDP, CP ####[address] , [place] [address] lab Director: Calin Tapia MD Creatinine [Mass/Vol] 0.7 mg/dL Normal 0.50-0.90 [facility] Comment on above: Performed By: #### L IP, CDP, CP ####[address] [place] [address] lab Director: Calin Tapia MD GFR/1.73 sq M.predicted among non-blacks MDRD (S/P/Bld) [Vol rate/Area] mL/min/{1.73_m2} Normal >60 [facility] Comment on above: Result Comment: Thes e results are not intended for use in patients <18 years of age.eGFR results are calculated without a race factor using the 2020 CKD-EPI equation.Careful clinical correlation is recommended, particularly when comparing to results calculated using previous equations.The CKD-EPI equation is less accurate in patients with extremes of muscle mass, extra-renal metabolism of creatine, excessive creatine ingestion, or following therapy that affects renal tubular secretion. Performed By: #### L IP CDP, CP ####[address] , [place] [id number] Lab Director: Calin Tapia MD Glucose [Mass/Vol] 89 mg/dL Normal 74-99 [facility] Comment on above: Performed By: #### L IP CDP, CP ####[address] [place], [place] [address] Lab Director: Calin Tapia MD Potassium [Moles/Vol] 3.7 mmol/L Normal 3.7-5.3 [facility] Comment on above: Performed By: #### L ABEBE TURNER, CP ####[address] [place] [address] Lab Director: Calin Tapia MD Protein [Mass/Vol] 6.4 g/dL Low 6.6-8.7 [facility] Comment on above: Performed By: #### L JOHNNY CDP, CP ####[address] [place] [address] Lab Director: Calin Tapia MD Sodium [Moles/Vol] 138 mmol/L Normal 136-145 [facility] Comment on above: Performed By: #### L IP CDP, CP ####[address] , [place] [address] Lab Director: Calin Tapia MD Urea nitrogen [Mass/Vol] 10 mg/dL Normal 6-20 [facility] Comment on above: Performed By: #### L IP, CDP, CP ####[facility] [place] [address] Lab Director: Calin Tapia MD Lactic Acidon 04-16-2024 Lactate (BldV) [Moles/Vol] 0.6 mmol/L 0.5 - 2.2 mmol/L [facility] Lactate [Moles/Vol] 0.6 mmol/L Normal 0.5-2.2 [facility] Comment on above: Performed By: #### L ACTIC ####[facility] [place] [address] lab Director: Calin Tapia MD Lipaseon 04-16-2024 Lipase [Catalytic activity/Vol] 23 U/L 13 - 60 U/L [facility] Lipase [Catalytic activity/Vol] 23 U/L Normal 13-60 [facility] Comment on above: Performed By: #### L ABEBE TURNER, CP ####[address] [place] [address] lab Director: Calin Tapia MD Microscopic Urinalysison Bacteria LM Ql (Urine sed) 1+ Abnormal None [facility] Epithelial cells LM.HPF (Urine sed) [#/Area] 0 TO 2 [facility] Interpretation and review of laboratory results Abnormal [facility] Mucus Ql (Urine sed) 1+ Abnormal None [facility] RBC LM.HPF (Urine sed) [#/Area] None [facility] WBC LM.HPF (Urine sed) [#/Area] 2 TO 5 [facility] No Panel Informationon 04-16 [facility] UA w/Reflex Cultureon 2023 Bilirubin, SemiQt,Ur Negative Normal NEG [facility] Comment on above: Performed By: #### U HCG, UMICAO, UAX ####[facility] [place] [address] lab Director: Calin Tapia MD Blood, Urine Negative Normal NEG [facility] Comment on above: Performed By: #### U HCG, UMICAO, UAX ####[address] , [place] [phone] Lab Director: Calin Tapia MD Clarity (U) Clear Normal CLEAR [facility] Comment on above: Performed By: #### U HCG, UMICAO, UAX ####[address] [place] [address] lab Director: Calin Tapia MD Color (U) Yellow Normal YEL [facility] Comment on above: Performed By: #### U HCG, UMICAO, UAX ####[address] [place] [address] Lab Director: Calin Tapia MD Glucose Ql (U) Negative Normal NEG [facility] Comment on above: Performed By: #### U HCG, UMICAO, UAX ####[address] [place] [address] Lab Director: Calin Tapia MD Ketones Ql (U) Negative Normal NEG [facility] Comment on above: Performed By: #### U HCG, UMICAO, UAX ####[address] [place] [address] Lab Director: Calin Tapia MD Leukocyte esterase Test strip Ql (U) Negative Normal NEG [facility] Comment on above: Performed By: #### U HCG, UMICAO, UAX ####[address] [place] [address] Lab Director: Calin Tapia MD Nitrite,Ur Negative Normal NEG [facility] Comment on above: Performed By: #### U HCG, UMICAO, UAX ####[address] [place] [address] lab Director: Calin Tapia MD PH,Ur 6.0 Normal 5.0-9.0 [facility] Comment on above: Performed By: #### U HCG, UMICAO, UAX ####[facility] , [place] [phone] lab Director: Calin Tapia MD Protein Ql (U) Negative Normal NEG [facility] Comment on above: Performed By: #### U HCG, UMICAO, UAX ####[facility] [place] , [place] 384[address]83 lab Director: Calin Tapia MD Spec. [place],Ur 1.025 High 1.010-1.020 [facility] Comment on above: Performed By: #### U HCG, UMICAO, UAX ####[facility] [place] [address] , [place] [address]83 lab Director: Calin Tapia MD Urobilinogen,Ur Normal Normal 0.0-1.0 [facility] Comment on above: Performed By: #### [facility] ####[address] , [place] 269[address]83 lab Director: Calin Tapia MD Urinalysis with Reflex to Cu ltureon 04-16-2024 Bilirubin Ql (U) Negative NEGATIVE [facility] Clarity (U) Clear Clear [facility] Color (U) Yellow Yellow [facility] Glucose Test strip (U) [Mass/Vol] Negative NEGATIVE mg/dL [facility] Hemoglobin Auto test strip Ql (U) Negative NEGATIVE [facility] Interpretation and review of laboratory results Abnormal [facility] Ketones (U) [Mass/Vol] Negative NEGATIVE mg/dL [facility] Leukocyte esterase Test strip Ql (U) Negative NEGATIVE [facility] Nitrite Ql (U) Negative NEGATIVE [facility] pH (U) 6.0 [pH] 5.0 - 9.0 [facility] Protein (U) [Mass/Vol] Negative NEGATIVE mg/dL [facility] Specific gravity (U) [Rel density] 1.025 High 1.010 - 1.020 [facility] Urobilinogen Qn (U) Normal 0.0 - 1. 0 EU/dL [facility] Urinalysis,Microon 4 Bacteria 1+ Abnormal [facility] Comment on above: Performed By: #### U HCG, UMICAO, UAX ####[facility] , [place] [id number] Lab Director: Calin Tapia MD Epithelial cells LM Ql (Urine sed) 0 TO 2 Normal 0-25 [facility] Comment on above: Performed By: #### U HCG, UMICAO, UAX ####[address] , [place] [phone] Lab Director: Calin Tapia MD Mucus Strands 1+ Abnormal [facility] Comment on above: Performed By: #### U HCG, UMICAO, UAX ####[address] , [place] 14[address] Lab Director: Calin Tapia MD Urine RBC's None Normal 0-2 [facility] Comment on above: Performed By: #### U HCG, UMICAO, UAX ####[address] , [place] 07[address] Lab Director: Calin Tapia MD Urine WBC's 2 TO 5 Normal 0-5 [facility] Comment on above: Performed By: #### U HCG, UMICAO, UAX ####[address] , [place] [phone] lab Director: Calin Tapia MD CBC with Diffon 04-15-2024 Basophils (Bld) [#/Vol] 0.07 10*3/uL [facility] Basophils/100 WBC (Bld) 1 % 0 - 2 % [facility] Eosinophils (Bld) [#/Vol] 0.39 10*3/uL [facility] Eosinophils/100 WBC (Bld) 5 % High 1 - 4 % [facility] Erythrocyte distribution width (RBC) [Ratio] 12.0 % 11.8 - 14.4 % [facility] Hematocrit (Bld) [Volume fraction] 35.4 % Low 36.3 - 47.1 % [facility] Hemoglobin (Bld) [Mass/Vol] 12.7 g/dL 11.9 - 15.1 g/dL [facility] Immature granulocytes (Bld) [#/Vol] [facility] Immature granulocytes/100 WBC (Bld) 0 % 0 [facility] Interpretation and review of laboratory results Abnormal [facility] Lymphocytes/100 WBC (Bld) 37 % 24 - 43 % [facility] Lymphocytes/100 WBC (Bld) 2.69 % [facility] MCH (RBC) [Entitic mass] 33.9 pg High 25.2 - 33.5 pg [facility] MCHC (RBC) [Mass/Vol] 35.9 g/dL High 28.4 - 34.8 g/dL [facility] MCV (RBC) [Entitic vol] 94.4 fL 82.6 - 102.9 fL [facility] Monocytes/100 WBC (Bld) 6 % 3 - 12 % [facility] Monocytes/100 WBC (Bld) 0.44 % [facility] Neutrophils/100 WBC (Bld) 51 % 36 - 65 % [facility] Nucleated RBC/100 WBC (Bld) [Ratio] 0.0 % 0.0 per 100 WBC [facility] Platelet mean volume (Bld) [Entitic vol] 9.2 fL 8.1 - 13.5 fL [facility] Platelets (Bld) [#/Vol] 245 10*3/uL [facility] RBC (Bld) [#/Vol] 3.75 10*6/uL Low 3.95 - 5.1 1 m/uL [facility] Segmented neutrophils/100 WBC (Bld) 3.69 % [facility] WBC other (Bld) [#/Vol] 7.3 [facility] Abs. Basophil 0.07 k/uL Normal 0.00-0.20 [place] Comment on above: Performed By: #### L IP, CDP, CP ####[address] [place] [address] Lab Director: Calin Tapia MD Abs.Imm.Granulocyte <0.03 Normal 0.00-0.30 [facility] Comment on above: Performed By: #### L IP, CDP, CP ####[address] [place] [phone] Lab Director: Calin Tapia MD Abs.Neutrophil (Seg) 3.69 k/uL Normal 1.50-8.10 [facility] Comment on above: Performed By: #### L IP, CDP, CP ####[address] [place] [phone] Lab Director: Calin Tapia MD Basophils/100 WBC (Bld) 1 % Normal 0-2 [facility] Comment on above: Performed By: #### L IP, CDP, CP ####[address] [place] [phone] Lab Director: Calin Tapia MD Eosinophils (Bld) [#/Vol] 0.39 10*3/uL Normal 0.00-0.44 [facility] Comment on above: Performed By: #### L IP, CDP, CP ####[address] [place] [phone] Lab Director: Calin Tapia MD Eosinophils/100 WBC (Bld) 5 % High 1-4 [facility] Comment on above: Performed By: #### L IP, CDP, CP ####[address] [place] [phone] Lab Director: Calin Tapia MD Erythrocyte distribution width (RBC) [Ratio] 12.0 % Normal 11.8-14.4 [facility] Comment on above: Performed By: #### L IP, CDP, CP ####[address] [place] [address] lab Director: Calin Tapia MD Hematocrit (Bld) [Volume fraction] 35.4 % Low 36.3-47.1 [facility] Comment on above: Performed By: #### L IP, CDP, CP ####[address] , [place] [phone] lab Director: Calin Tapia MD Hemoglobin (Bld) [Mass/Vol] 12.7 g/dL Normal 11.9-15.1 [facility] Comment on above: Performed By: #### L IP, CDP, CP ####[address] , [facility] lab Director: Calin Tapia MD Immature granulocytes/100 WBC (Bld) 0 % Normal 0 [facility] Comment on above: Performed By: #### L IP, CDP, CP ####[address] , [place] 3974083 lab Director: Calin Tapia MD Lymphocytes (Bld) [#/Vol] 2.69 10*3/uL Normal 1.10-3.70 [facility] Comment on above: Performed By: #### L IP, CDP, CP ####[address] , [place] 00[address]83 lab Director: Calin Tapia MD Lymphocytes/100 WBC (Bld) 37 % Normal 24-43 [facility] Comment on above: Performed By: #### L IP, CDP, CP ####[address] , [place] 1978[address] Lab Director: Calin Tapia MD MCH (RBC) [Entitic mass] 33.9 pg High 25.2-33.5 [facility] Comment on above: Performed By: #### L ABEBE TURNER, CP ####[address] , [place] [phone] Director: Calin Tapia MD MCHC (RBC) [Mass/Vol] 35.9 g/dL High 28.4-34.8 [facility] Comment on above: Performed By: #### L IP, CDP, CP ####[address] [place] [address] Lab Director: Calin Tapia MD MCV (RBC) [Entitic vol] 94.4 fL Normal 82.6-102.9 [facility] Comment on above: Performed By: #### L ABEBE TURNER, CP ####[address] , [facility]83[facility])[phone] Director: Calin Tapia MD Monocytes (Bld) [#/Vol] 0.44 10*3/uL Normal 0.10-1.20 [facility] Comment on above: Performed By: #### L ABEBE TURNER, CP ####[address] , [place] [phone] Director: Calin Tapia MD Monocytes/100 WBC (Bld) 6 % Normal 3-12 [facility] Comment on above: Performed By: #### L ABEBE TURNER, CP ####[address] [place] [address] Lab Director: Calin Tapia MD Neutrophil (Seg) 51 % Normal 36-65 [facility] Comment on above: Performed By: #### L ABEBE TURNER, CP ####[address] , [place] 9881483 Lab Director: Calin Tapia MD NRBC Automated 0.0 per 100 WBC Normal 0.0 [facility] Comment on above: Performed By: #### L IP, CDP, CP ####[facility] , [place] [phone] Lab Director: Calin Tapia MD Platelet mean volume (Bld) [Entitic vol] 9.2 fL Normal 8.1-13.5 [facility] Comment on above: Performed By: #### L IP, CDP, CP ####[address] , [place] 8175183 Lab Director: Calin Tapia MD Platelets (Bld) [#/Vol] 245 10*3/uL Normal 138-453 [facility] Comment on above: Performed By: #### L IP, CDP, CP ####[address] , [place] 2075383 Lab Director: Calin Tapia MD RBC (Bld) [#/Vol] 3.75 10*6/uL Low 3.95-5.11 [facility] Comment on above: Performed By: #### L IP CDP, CP ####[address] , [place] [phone] Lab Director: Calin Tapia MD WBC (Bld) [#/Vol] 7.3 10*3/uL Normal 3.5-11.3 [facility] Comment on above: Performed By: #### L IP CDP, CP ####[address] , [facility] Lab Director: Calin Tapia MD HCG, ,Urineon 04-15 Beta HCG ( test) Ql (U) Negative Normal NEG [facility] Comment on above: Result Comment: Spec imens with hCG levels near the threshold of the test (25 mIU/mL) may give a negative or indeterminate result. In such cases, another test should be performed with a new specimen in 48-72 hours. If early is suspected clinically in this setting, correlation with quantitative serum b-hCG level is suggested.[facility] has confirmed the use of plasma for this test. This has not been cleared or approved by the U.S. Food and Drug Administration. The FDA has determined that such clearance is not necessary. Performed By: #### U HCG, UMICAO, UAX ####[facility] [place] [address] Lab Director: Calin Tapia MD , Urineon HCG ( test) Ql (U) Negative NEGATIVE [facility] Comment on above: Specimens with hCG l evels near the threshold of the test (25 mIU/mL) may give a negative or indeterminate result. In such cases, another test should be performed with a new specimen in 48-72 hours. If early is suspected clinically in this setting, correlation with quantitative serum b-hCG level is suggested. [facility] has confirmed the use of plasma for this test. This has not been cleared or approved by the U.S. Food and Drug Administration. The FDA has determined that such clearance is not necessary. [facility] Cult,Urineon 03-30-2024 Cult,Urine Specimen Description .CLEAN CATCH URINE Special Requests Site: Urine Culture NO SIGNIFICANT GROWTH Report Status FINAL 03/30/2024 Normal [facility] Comment on above: Performed By: #### U RC ####[facility] [place] [address] Lab Director: [facility] [place] , [place] 012[address]83 Lab Director: Calin Tapia MD Urinalysis w/ Microon 2023 Bacteria TRACE Abnormal NONE [facility] Comment on above: Performed By: #### U AMIC ####[facility] [place] [address] lab Director: Calin Tapia MD Bilirubin, SemiQt,Ur Negative Normal NEG [facility] Comment on above: Performed By: #### U AMIC ####[facility] [place] [address] lab Director: Calin Tapia MD Blood, Urine Negative Normal NEG [facility] Comment on above: Performed By: #### U AMIC ####[address] , [place] [phone] Lab Director: Calin Tapia MD Clarity (U) Clear Normal CLEAR [facility] Comment on above: Performed By: #### U AMIC ####[address] , [place] [id number] lab Director: Calin Tapia MD Color (U) Yellow Normal YEL [facility] Comment on above: Performed By: #### U AMIC ####[address] , [place] [phone] lab Director: Calin Tapia MD Epithelial cells LM Ql (Urine sed) 0 TO 2 Normal 0-25 [facility] Comment on above: Performed By: #### U AMIC ####[address] , [place] [phone] lab Director: Calin Tapia MD Glucose Ql (U) Negative Normal NEG [facility] Comment on above: Performed By: #### U AMIC ####[address] , [place] 9852883 lab Director: Calin Tapia MD Ketones Ql (U) Negative Normal NEG [facility] Comment on above: Performed By: #### U AMIC ####[address] , [place] [id number] lab Director: Calin Tapia MD Leukocyte esterase Test strip Ql (U) Negative Normal NEG [facility] Comment on above: Performed By: #### U AMIC ####[address] , [place] [id number] lab Director: Calin Tapia MD Nitrite,Ur Negative Normal NEG [facility] Comment on above: Performed By: #### U AMIC ####[address] , [place] 6519683 Lab Director: Calin Tapia MD PH,Ur 6.0 Normal 5.0-9.0 [facility] Comment on above: Performed By: #### U AMIC ####[address] , [place] [phone] Lab Director: Calin Tapia MD Protein Ql (U) Negative Normal NEG [facility] Comment on above: Performed By: #### U AMIC ####[address] , [place] 759[address] lab Director: Calin Tapia MD Spec. [place],Ur 1.010 Normal 1.010-1.020 [facility] Comment on above: Performed By: #### U AMIC ####[address] [place] [address] lab Director: Calin Tapia MD Urine RBC's None Normal 0-2 [facility] Comment on above: Performed By: #### U AMIC ####[address] [place] [address] lab Director: Calin Tapia MD Urine WBC's None Normal 0-5 [facility] Comment on above: Performed By: #### U AMIC ####[address] [place] [address] Lab Director: Calin Tapia MD Urobilinogen,Ur Normal Normal 0.0-1.0 [facility] Comment on above: Performed By: #### U AMIC ####[address] , [place] [phone] lab Director: Calin Tapia MD Urinalysis with Microscopico n 03-29-2024 Bacteria LM Ql (Urine sed) TRACE Abnormal None [facility] Bilirubin Ql (U) Negative NEGATIVE [facility] Clarity (U) Clear Clear [facility] Color (U) Yellow Yellow [facility] Epithelial cells LM.HPF (Urine sed) [#/Area] 0 TO 2 [facility] Glucose Test strip (U) [Mass/Vol] Negative NEGATIVE mg/dL [facility] Hemoglobin Auto test strip Ql (U) Negative NEGATIVE [facility] Interpretation and review of laboratory results Abnormal [facility] Ketones (U) [Mass/Vol] Negative NEGATIVE mg/dL [facility] Leukocyte esterase Test strip Ql (U) Negative NEGATIVE [facility] Nitrite Ql (U) Negative NEGATIVE [facility] pH (U) 6.0 [pH] 5.0 - 9.0 [facility] Protein (U) [Mass/Vol] Negative NEGATIVE mg/dL [facility] RBC LM.HPF (Urine sed) [#/Area] None [facility] Specific gravity (U) [Rel density] 1.010 1.010 - 1.020 [facility] Urobilinogen Qn (U) Normal 0.0 - 1. 0 EU/dL [facility] WBC LM.HPF (Urine sed) [#/Area] None [facility] CBC with Diffon 03-18-2024 Abs. Basophil 0.06 k/uL Normal 0.00-0.20 [place] Comment on above: Performed By: #### C DP, LIP, CP, DIME, TROPI, HCG ####[facility] [place], [place] 73[address] Lab Director: Calin Tapia MD Abs.Imm.Granulocyte <0.03 Normal 0.00-0.30 [facility] Comment on above: Performed By: #### C DP, LIP, CP, DIME, TROPI, HCG ####[facility] [place], [place] [address] lab Director: Calin Tapia MD Abs.Neutrophil (Seg) 3.94 k/uL Normal 1.50-8.10 [facility] Comment on above: Performed By: #### C DP, LIP, CP, DIME, TROPI, HCG ####[address] , [place] 1325283 Lab Director: Calin Tapia MD Basophils/100 WBC (Bld) 1 % Normal 0-2 [facility] Comment on above: Performed By: #### C DP, LIP, CP, DIME, TROPI, HCG ####[address] [place] [address] Lab Director: Calin Tapia MD Eosinophils (Bld) [#/Vol] 0.22 10*3/uL Normal 0.00-0.44 [facility] Comment on above: Performed By: #### C DP, LIP, CP, DIME, TROPI, HCG ####[address] , [place] [address])[phone] Director: Calin Tapia MD Eosinophils/100 WBC (Bld) 4 % Normal 1-4 [facility] Comment on above: Performed By: #### C DP, LIP, CP, DIME, TROPI, HCG ####[address] , [facility] Lab Director: Calin Tapia MD Erythrocyte distribution width (RBC) [Ratio] 11.9 % Normal 11.8-14.4 [facility] Comment on above: Performed By: #### C DP, LIP, CP, DIME, TROPI, HCG ####[address] [place] [address] Lab Director: Calin Tapia MD Hematocrit (Bld) [Volume fraction] 40.1 % Normal 36.3-47.1 [facility] Comment on above: Performed By: #### C DP, LIP, CP, DIME, TROPI, HCG ####[address] , [place] 1933083 Lab Director: Calin Tapia MD Hemoglobin (Bld) [Mass/Vol] 14.4 g/dL Normal 11.9-15.1 [facility] Comment on above: Performed By: #### C DP, LIP, CP, DIME, TROPI, HCG ####[address] , [facility]83 Lab Director: Calin Tapia MD Immature granulocytes/100 WBC (Bld) 0 % Normal 0 [facility] Comment on above: Performed By: #### C DP, LIP, CP, DIME, TROPI, HCG ####[address] , [place] [address] Lab Director: Calin Tapia MD Lymphocytes (Bld) [#/Vol] 1.29 10*3/uL Normal 1.10-3.70 [facility] Comment on above: Performed By: #### C DP, LIP, CP, DIME, TROPI, HCG ####[address] , [place] [address] Lab Director: Calin Tapia MD Lymphocytes/100 WBC (Bld) 22 % Low 24-43 [facility] Comment on above: Performed By: #### C DP, LIP, CP, DIME, TROPI, HCG ####[address] , [place] [address] Lab Director: Calin Tapia MD MCH (RBC) [Entitic mass] 33.6 pg High 25.2-33.5 [facility] Comment on above: Performed By: #### C DP, LIP, CP, DIME, TROPI, HCG ####[address] [place] [address] Lab Director: Calin Tapia MD MCHC (RBC) [Mass/Vol] 35.9 g/dL High 28.4-34.8 [facility] Comment on above: Performed By: #### C DP, LIP, CP, DIME, TROPI, HCG ####[address] , [place] [phone] Director: Calin Tapia MD MCV (RBC) [Entitic vol] 93.7 fL Normal 82.6-102.9 [facility] Comment on above: Performed By: #### C DP, LIP, CP, DIME, TROPI, HCG ####[address] , [place] [phone] Director: Calin Tapia MD Monocytes (Bld) [#/Vol] 0.41 10*3/uL Normal 0.10-1.20 [facility] Comment on above: Performed By: #### C DP, LIP, CP, DIME, TROPI, HCG ####[address] , [facility]83[facility])[phone] Director: Calin Tapia MD Monocytes/100 WBC (Bld) 7 % Normal 3-12 [facility] Comment on above: Performed By: #### C DP, LIP, CP, DIME, TROPI, HCG ####[address] , [place] [address])[phone] Director: Calin Tapia MD Neutrophil (Seg) 66 % High 36-65 [facility] Comment on above: Performed By: #### C DP, LIP, CP, DIME, TROPI, HCG ####[address] , [place] [address])[phone] Director: Calin Tapia MD NRBC Automated 0.0 per 100 WBC Normal 0.0 [facility] Comment on above: Performed By: #### C DP, LIP, CP, DIME, TROPI, HCG ####[address] [place] [address] Lab Director: Calin Tapia MD Platelet mean volume (Bld) [Entitic vol] 9.3 fL Normal 8.1-13.5 [facility] Comment on above: Performed By: #### C DP, LIP, CP, DIME, TROPI, HCG ####[facility] [place] [address] Lab Director: Calin Tapia MD Platelets (Bld) [#/Vol] 248 10*3/uL Normal 138-453 [facility] Comment on above: Performed By: #### C DP, LIP, CP, DIME, TROPI, HCG ####[address] [place] [address] Lab Director: Calin Tapia MD RBC (d) [#/Vol] 4.28 10*6/uL Normal 3.95-5.11 [facility] Comment on above: Performed By: #### C DP, LIP, CP, DIME, TROPI, HCG ####[address] , [place] [phone] Director: Calin Tapia MD WBC (Bld) [#/Vol] 5.9 10*3/uL Normal 3.5-11.3 [facility] Comment on above: Performed By: #### C DP, LIP, CP, DIME, TROPI, HCG ####[address] [place] [address] Lab Director: Calin Tapia MD Comp Metabolic Profon 2023 Albumin [Mass/Vol] 4.9 g/dL Normal 3.5-5.2 [facility] Comment on above: Performed By: #### C DP, LIP, CP, DIME, TROPI, HCG ####[address] , [place] 8615483 Lab Director: Calin Tapia MD Albumin/Glob Ratio 1.7 Normal 1.0-2.5 [facility] Comment on above: Performed By: #### C DP, LIP, CP, DIME, TROPI, HCG ####[facility] , [place] 2521583 Lab Director: Calin Tapia MD Alkaline Phos 62 U/L Normal 35-104 [place] Comment on above: Performed By: #### C DP, LIP, CP, DIME, TROPI, HCG ####[facility] , [place] 5176083 Lab Director: Calin Tapia MD ALT [Catalytic activity/Vol] 19 U/L Normal 5-33 [facility] Comment on above: Performed By: #### C DP, LIP, CP, DIME, TROPI, HCG ####[facility] , [place] 1626983 lab Director: Calin Tapia MD Anion gap [Moles/Vol] 10 mmol/L Normal 9-17 [facility] Comment on above: Performed By: #### C DP, LIP, CP, DIME, TROPI, HCG ####[address] , [place] 2868183 lab Director: Calin Tapia MD AST [Catalytic activity/Vol] 19 U/L Normal <32 [facility] Comment on above: Performed By: #### C DP, LIP, CP, DIME, TROPI, HCG ####[address] , [place] 7342083 Lab Director: Calin Tapia MD Bilirubin [Mass/Vol] 0.6 mg/dL Normal 0.3-1.2 [facility] Comment on above: Performed By: #### C DP, LIP, CP, DIME, TROPI, HCG ####[address] [place] [address] Lab Director: Calin Tapia MD BUN/CRE Ratio 22 High 9-20 [place] Comment on above: Performed By: #### C DP, LIP, CP, DIME, TROPI, HCG ####[facility] , [place] 9259383 Lab Director: Calin Tapia MD Calcium [Mass/Vol] 9.6 mg/dL Normal 8.6-10.4 [facility] Comment on above: Performed By: #### C DP, LIP, CP, DIME, TROPI, HCG ####[facility] [place] [address] Lab Director: Calin Tapia MD Chloride [Moles/Vol] 105 mmol/L Normal 98-107 [facility] Comment on above: Performed By: #### C DP, LIP, CP, DIME, TROPI, HCG ####[address] , [place] 0807583 Lab Director: Calin Tapia MD CO2 [Moles/Vol] 25 mmol/L Normal 20-31 [facility] Comment on above: Performed By: #### C DP, LIP, CP, DIME, TROPI, HCG ####[address] , [place] 9890983 Lab Director: Calin Tapia MD Creatinine [Mass/Vol] 0.6 mg/dL Normal 0.5-0.9 [facility] Comment on above: Performed By: #### C DP, LIP, CP, DIME, TROPI, HCG ####[address] , [place] 0994683 Lab Director: Calin Tapia MD GFR/1.73 sq M.predicted among non-blacks MDRD (S/P/Bld) [Vol rate/Area] mL/min/{1.73_m2} Normal >60 [facility] Comment on above: Result Comment: Thes e results are not intended for use in patients <18 years of age.eGFR results are calculated without a race factor using the 2020 CKD-EPI equation.Careful clinical correlation is recommended, particularly when comparing to results calculated using previous equations.The CKD-EPI equation is less accurate in patients with extremes of muscle mass, extra-renal metabolism of creatine, excessive creatine ingestion, or following therapy that affects renal tubular secretion. Performed By: #### C DP, LIP, CP, DIME, TROPI, HCG ####[address] [place] [address] Lab Director: Calin Tapia MD Glucose [Mass/Vol] 98 mg/dL Normal 70-99 [facility] Comment on above: Performed By: #### C DP, LIP, CP, DIME, TROPI, HCG ####[address] , [place] [phone] Director: Calin Tapia MD Potassium [Moles/Vol] 4.4 mmol/L Normal 3.7-5.3 [facility] Comment on above: Performed By: #### C DP, LIP, CP, DIME, TROPI, HCG ####[address] , [place] [phone] Director: Calin Tapia MD Protein [Mass/Vol] 7.8 g/dL Normal 6.4-8.3 [facility] Comment on above: Performed By: #### C DP, LIP, CP, DIME, TROPI, HCG ####[address] , [place] [phone] Director: Calin Tapia MD Sodium [Moles/Vol] 140 mmol/L Normal 135-144 [facility] Comment on above: Performed By: #### C DP, LIP, CP, DIME, TROPI, HCG ####[address] , [place] [phone] Director: Calin Tapia MD Urea nitrogen [Mass/Vol] 13 mg/dL Normal 6-20 [facility] Comment on above: Performed By: #### C DP, LIP, CP, DIME, TROPI, HCG ####[address] [place] [address] Lab Director: Calin Tapia MD D-Dimer Teston 03-18-2024 D-Dimer Test 0.27 ug/mL FEU Normal 0.00-0.59 [facility] Comment on above: Result Comment: When combined with a low clinical probability, a D dimer value of <0.50 ug/mL FEU is considered negative for DVT and PE (negative predictive value of 98%, sensitivity of 97%).If this test is not being used to help rule out DVT and PE, then the following reference range should be utilized: 0.00 - 0.59 ug/mL FEU.The D-Dimer assay is intended for use as an aid in the diagnosis of venous thromboembolism (DVT and PE) and the results should be interpreted in conjunction with the patient's medical history, clinical presentation, and other findings.Elevated levels of D-dimer activity can be seen in any state of coagulation activation and is not recommended in patients with therapeutic dose anticoagulant therapy for >24 hours, fibrinolytic therapy within the previous 7 days, trauma or surgery within the previous 4 weeks, disseminated malignancies, aortic aneurysm, sepsis, severe infections, pneumonia, severe skin infections, liver cirrhosis, advanced age, coronary disease, diabetes, and .A very low percentage of patients with DVT may yield D-dimer results below the cutoff of 0.5 ug/mL FEU. This is known to be more prevalent in patients with distal DVT. Performed By: #### C DP, LIP, CP, DIME, TROPI, HCG ####[facility] [place] [address] , [place] [address] [facility] Director: Calin Tapia MD HCG Screen, Bloodon 03-18-20 HCG Screen, Blood Negative Normal NEG [facility] Comment on above: Result Comment: Spec imens with hCG levels near the threshold of the test (25 mIU/mL) may give a negative or indeterminate result. In such cases, another test should be performed with a new specimen in 48-72 hours. If early is suspected clinically in this setting, correlation with quantitative serum b-hCG level is suggested.Luminal [facility] has confirmed the use of plasma for this test. This has not been cleared or approved by the U.S. Food and Drug Administration. The FDA has determined that such clearance is not necessary. Performed By: #### C DP, LIP, CP, DIME, TROPI, HCG ####[facility] [place] [address] Lab Director: Calin Tapia MD Lipaseon 5 Lipase [Catalytic activity/Vol] 21 U/L Normal 13-60 [facility] Comment on above: Performed By: #### C DP, LIP, CP, DIME, TROPI, HCG ####[facility] [place] [address] Lab Director: Calin Tapia MD Troponinon 03-18-2024 Troponin, High Sens 6 ng/L Normal 0-14 [facility] Comment on above: Result Comment: High Sensitivity Troponin values cannot be compared with other Troponin methodologies. Performed By: #### C DP, LIP, CP, DIME, TROPI, HCG ####[address] , [place] 6691883 Lab Director: Calin Tapia MD Urinalysis w/ Microon 2023 Bacteria TRACE Abnormal NONE [facility] Comment on above: Performed By: #### U AMIC ####[address] , [place] 8095583 Lab Director: Calin Tapia MD Bilirubin, SemiQt,Ur Negative Normal NEG [facility] Comment on above: Performed By: #### U AMIC ####[address] , [place] 1528683 Lab Director: Calin Tapia MD Blood, Urine TRACE Abnormal NEG [facility] Comment on above: Performed By: #### U AMIC ####[address] [place] [address] Lab Director: Calin Tapia MD Clarity (U) Clear Normal CLEAR [facility] Comment on above: Performed By: #### U AMIC ####[address] , [place] 1338483 Lab Director: Calin Tapia MD Color (U) Yellow Normal YEL [facility] Comment on above: Performed By: #### U AMIC ####[address] , [place] 3745483 Lab Director: Calin Tapia MD Epithelial cells LM Ql (Urine sed) 0 TO 2 Normal 0-25 [facility] Comment on above: Performed By: #### U AMIC ####[address] [place] [address] lab Director: Calin Tapia MD Glucose Ql (U) Negative Normal NEG [facility] Comment on above: Performed By: #### U AMIC ####[address] , [place] 5508483 Lab Director: Calin Tapia MD Ketones Ql (U) Negative Normal NEG [facility] Comment on above: Performed By: #### U AMIC ####[address] [place] [address] lab Director: Calin Tapia MD Leukocyte esterase Test strip Ql (U) Negative Normal NEG [facility] Comment on above: Performed By: #### U AMIC ####[address] [place] [address] Lab Director: Calin Tapia MD Nitrite,Ur Negative Normal NEG [facility] Comment on above: Performed By: #### U AMIC ####[address] [place] [address] lab Director: Calin Tapia MD PH,Ur 6.5 Normal 5.0-9.0 [facility] Comment on above: Performed By: #### U AMIC ####[address] , [place] 7790083 Lab Director: Calin Tapia MD Protein Ql (U) Negative Normal NEG [facility] Comment on above: Performed By: #### U AMIC ####[address] [place] [address] Lab Director: Calin Tapia MD Spec. [place],Ur 1.010 Normal 1.010-1.020 [facility] Comment on above: Performed By: #### U AMIC ####[address] [place], [place] 1279383 Lab Director: Calin Tapia MD Urine RBC's 0 TO 2 Normal 0-2 [facility] Comment on above: Performed By: #### U AMIC ####[address] , [place] 0188883 Lab Director: Calin Tapia MD Urine WBC's 0 TO 2 Normal 0-5 [facility] Comment on above: Performed By: #### U AMIC ####[address] , [place] 4440783 Lab Director: Calin Tapia MD Urobilinogen,Ur Normal Normal 0.0-1.0 [facility] Comment on above: Performed By: #### U AMIC ####[address] , [place] 0320983 Lab Director: Calin Tapia MD XR CHEST (2 VW)on 03-18-2024 XR CHEST (2 VW) Normal [facility] Anti-Thy Peroxidaseon 2023 Anti-Thy Peroxidase <4.0 Normal 0.0-25.0 [facility] Comment on above: Result Comment: Refe rence Range: <25.0 Negative 25.0-35.0 Equivocal >35.0 PositiveWhen results are Equivocal, it is recommended to retest after 8-12 weeks. Performed By: #### A MSOM ####[address] [address] Lab Director: John Mason MD T4, Freeon 01-22-2024 Free T4 [Mass/Vol] 1.6 ng/dL 0.92 - 1. 68 ng/dL [facility] TSH w/reflex to FT4on 2023 Thyroid Stim. Horm. 1.40 uIU/mL Normal 0.30-5.00 [facility] Comment on above: Performed By: #### F T4 ####[facility] [address] [place], [place] 0493208 lab Director: John Mason MD#### TSHX ####[facility] [place] [address] lab Director: Calin Tapia MD TSH with Reflexon 01-22-2024 TSH Qn 1.40 m[IU]/L [facility] Thyroxine, Freeon 01-22-2024 Thyroxine, Free 1.6 ng/dL Normal 0.92-1.68 [facility] Comment on above: Performed By: #### F T4 ####[place] [address] [place] [address] lab Director: John Mason MD#### TSHX ####[facility] [place] [address] [place] [address] lab Director: Calin Tapia MD Calprotectin, Fecalon 2023 Calprotectin, Fecal 32 ug/g Normal <=49 [facility] Comment on above: Result Comment: (NOT E)REFERENCE INTERVAL: Calprotectin, Fecal by Immunoassay Less than 50 ug/g.........Normal 50-120 ug/g...............Borderline elevated, test should be re-evaluated in 4-6 weeks. 121 ug/g or greater.......ElevatedPerformed By: [employer] [place] [id number] Director: Jad Perry MD, PhDCLIA Number: [id number] Performed By: #### S TLPCR ####[facility] [address] [place] [id number] Lab Director: MANOLO Lou[address] [place], [place] 9[address]83 Lab Director: Calin Tapia MD#### OBKatherin, CDIFQ ####[address] [place], [place] 5709783 Lab Director: Calin Tapia MD#### ACALPF ####[address] [address] Lab Director: Jossue Valdez MD [facility] 2023 Barley IgE <0.10 Normal 0.00-0.34 [facility] Comment on above: Performed By: #### I FOODC ####[facility] [address] [place] [address] [phone] Director: John Mason MD Beef IgE <0.10 Normal 0.00-0.34 [facility] Comment on above: Performed By: #### I FOODC ####[facility] [address] [place] [address] Lab Director: John Mason MD Cabbage IgE <0.10 Normal 0.00-0.34 [facility] Comment on above: Performed By: #### I FOODC ####[facility] [address] [place] [address] Lab Director: John Mason MD Carrot IgE <0.10 Normal 0.00-0.34 [facility] Comment on above: Performed By: #### I FOODC ####[facility] [address] [place] [address] Lab Director: John Mason MD Chicken IgE <0.10 Normal 0.00-0.34 [facility] Comment on above: Performed By: #### I FOODC ####[facility] [address] [place], [place] [address])[phone] Director: John Mason MD Codfish IgE <0.10 Normal 0.00-0.34 [facility] Comment on above: Performed By: #### I FOODC ####[facility] [address] [address])[phone] Director: John Mason MD Kerrick IgE <0.10 Normal 0.00-0.34 [facility] Comment on above: Performed By: #### I FOODC ####[facility] [address] [address])[phone] Director: John Mason MD Crab IgE <0.10 Normal 0.00-0.34 [facility] Comment on above: Performed By: #### I FOODC ####[address] [address])[phone] Director: John Mason MD Egg White IgE <0.10 Normal 0.00-0.34 [place] Comment on above: Performed By: #### I FOODC ####[facility] [address] [phone] Director: John Mason MD Grape IgE <0.10 Normal 0.00-0.34 [facility] Comment on above: Performed By: #### I FOODC ####[facility] [address] [address])[phone] Director: John Mason MD Lettuce IgE <0.10 Normal 0.00-0.34 [facility] Comment on above: Performed By: #### I FOODC ####[facility] [address] [place] [address] [phone] Director: John Mason MD Milk (Cow) IgE <0.10 Normal 0.00-0.34 [facility] Comment on above: Performed By: #### I FOODC ####[facility] [address] [place], [place] [phone] Director: John Mason MD [place] Song IgE <0.10 Normal 0.00-0.34 [place] Comment on above: Performed By: #### I FOODC ####[facility] [address] [place] [address] [phone] Director: John Mason MD Oat IgE <0.10 Normal 0.00-0.34 [facility] Comment on above: Performed By: #### I FOODC ####[address] [address])[phone] Director: John Mason MD Bowman IgE <0.10 Normal 0.00-0.34 [facility] Comment on above: Performed By: #### I FOODC ####[address] [address])[phone] Director: John Mason MD Peanut IgE <0.10 Normal 0.00-0.34 [facility] Comment on above: Performed By: #### I FOODC ####[address] [id number])[phone] Director: John Mason MD Pepper C. annuum IgE <0.10 Normal 0.00-0.34 [facility] Comment on above: Performed By: #### I FOODC ####[facility] By[address]mis[address] [place] [address])[phone] Director: John Mason MD Pork IgE <0.10 Normal 0.00-0.34 [facility] Comment on above: Performed By: #### I FOODC ####[facility] [address] [place] [address])[phone] Director: Jhon Mason MD Potato IgE <0.10 Normal 0.00-0.34 [facility] Comment on above: Performed By: #### I FOODC ####[facility] [address] [place] [address])[phone] Director: John Mason MD Rice IgE <0.10 Normal 0.00-0.34 [facility] Comment on above: Performed By: #### I FOODC ####[address] [address])[phone] Director: John Mason MD Sayner IgE <0.10 Normal 0.00-0.34 [facility] Comment on above: Performed By: #### I FOODC ####[address] [address])[phone] Director: John Mason MD Shrimp IgE <0.10 Normal 0.00-0.34 [facility] Comment on above: Performed By: #### I FOODC ####[place], [place] [address])[phone] Director: John Mason MD Soybean IgE <0.10 Normal 0.00-0.34 [facility] Comment on above: Performed By: #### I FOODC ####[address] [address])[phone] Director: John Mason MD Tomato IgE <0.10 Normal 0.00-0.34 [facility] Comment on above: Performed By: #### I FOODC ####[place], [place] [address])[phone] Director: John Mason MD Tuna IgE <0.10 Normal 0.00-0.34 [facility] Comment on above: Performed By: #### I FOODC ####[place], [place] [address])[phone] Director: John Mason MD Wheat IgE <0.10 Normal 0.00-0.34 [facility] Comment on above: Result Comment: BAN RGEN, INTERP, IMMUNOCAP SCORE IGE<0.10 Class 0 No significant level detected0.10-0.34 Class 0/1 Clinical relevance undertermined0.35 to 0.70 Class 1 Low0.71 to 3.50 Class 2 Moderate3.51 to 17.50 Class 3 High17.51 to 50.00 Class 4 Very High50.01 to 100.00 Class 5 Very High>100.00 Class 6 Very Highunits: kU/LIncreasing ranges are reflective of increasing concentrations of allergen specific IgE. These concentrations may not correlate with the degree of clinical response or skin testing results when challenged with a specific allergen.The correlation of allergy laboratory results with the clinical history and in vivo reactivity to specific allergens is essential. A negative test may not rule out clinical allergy or even anaphylaxis. Performed By: #### I FOODC ####[address] [address])[phone] Director: John Mason MD Celiac Reflex Panelon 2023 Gliadin Deam Pep IgA 4.7 U/mL Normal <7.0 [facility] Comment on above: Result Comment: CHANO AC INTERPRETATION<7.0 Negative7.0-10.0 Equivocal>10.0 Positiveunits: U/mL Performed By: #### C ELPX ####[address] [address] Lab Director: John Mason MD#### CP, CDP, CRP ####[address] [place] [phone] Lab Director: Calin Tapia MD Gliadin Deam Pep IgG <0.4 Normal <7.0 [facility] Comment on above: Result Comment: CHANO AC INTERPRETATION<7.0 Negative7.0-10.0 Equivocal>10.0 Positiveunits: U/mL Performed By: #### C ELPX ####[address] [address] Lab Director: John Mason MD#### CP, CDP, CRP ####[address] [place] [address] Lab Director: Calin Tapia MD Tiss Transglutam IgA <0.1 Normal <7.0 [facility] Comment on above: Result Comment: CHANO AC INTERPRETATION<7.0 Negative7.0-10.0 Equivocal>10.0 Positiveunits: U/mL Performed By: #### C ELPX ####[address] [address] Lab Director: John Mason MD#### CP, CDP, CRP ####[address] [place], [place] 9920683 Lab Director: Calin Tapia MD Tiss Transglutam IgG <0.6 Normal <7.0 [facility] Comment on above: Result Comment: CHANO AC INTERPRETATION<7.0 Negative7.0-10.0 Equivocal>10.0 Positiveunits: U/mL Performed By: #### C ELPX ####[address] [phone] Director: John Mason MD#### CP, CDP, CRP ####[address] , [place] [phone] Lab Director: Calin Tapia MD Ova+Parasit,Preservedon 01-01 Ova+Parasit,Preserve d [facility] [place] Comment on above: Performed By: #### O PP ####[address] [address] Lab Director: John Mason [address] , [place] [phone] Lab Director: Calin Tapia MD Cult,Woundon 01-17-2024 Cult,Wound [facility] [place] Comment on above: Performed By: #### W DC ####[address] [address] Lab Director: John Mason MD Stool PCR Batteryon 01-17-20 24 Campylobacter sp PCR NEGATIVE: No Campylobacter spp. (jejuni or coli) DNA Detected Normal [facility] Comment on above: Performed By: #### S TLPCR ####[facility] [address] [place] [address] Lab Director: John Mason [address] [place] [address] Lab Director: Calin Tapia MD#### EVELIA CDIFQ ####[address] [place] [address] Lab Director: Calin Tapia MD#### ACALPF ####[facility] [address]frsm[address] [place], [place] [id number] Lab Director: Jossue Valdez MD E coli enterotox PCR NEGATIVE: No Enterotoxigenic E. coli (ETEC) Heat-labile and heat-stable (LT/ST) Normal EECNEG [facility] Comment on above: Result Comment: DNA Detected Performed By: #### S TLPCR ####[facility] [address] [place] [place], [place] [id number])[phone] Director: John Mason [address] [place] [address] Lab Director: Calin Tapia MD#### EVELIA CDIFQ ####[address] [place] [address] Lab Director: Calin Tapia MD#### ACALPF ####[facility] [address]btmqy230 [place] [address] Lab Director: Jossue Valdez MD Plesiomonas sp PCR Negative [facility] Comment on above: Performed By: #### S TLPCR ####[facility] [address] [place], [place] [phone])[phone] Director: John Mason [address] [place] [address] Lab Director: Calin Tapia MD#### OBN, CDIFQ ####[address] [place] [address] Lab Director: Calin Tapia MD#### ACALPF ####[facility] [address] [place], [place] [id number])[phone] Director: Jossue Valdez MD Salmonella sp PCR Negative [facility] Comment on above: Performed By: #### S TLPCR ####[facility] [address] [place] [address] Lab Director: John Mason[address] [place] [address] Lab Director: Calin Tapia MD#### OBN, CDIFQ ####[address] [place] [address] Lab Director: Calin Tapia MD#### ACALPF ####[facility] [address] [place] [address] Lab Director: Jossue Valdez MD Shigatoxin gene PCR Negative [facility] [facility] Comment on above: Performed By: #### S TLPCR ####[address] [address] Lab Director: John Mason, [address] [place] [address] Lab Director: Calin Tapia MD#### OBN, CDIFQ ####[address] [place] [address] Lab Director: Calin Tapia MD#### ACALPF ####[facility] [address] [place] [address] Lab Director: Jossue Valdez MD Shigella sp PCR Negative Normal [facility] Comment on above: Performed By: #### S TLPCR ####[facility] [address] [place], [place] [id number])[phone] Director: John Mason, [address] [place] [address] Lab Director: Calin Tapia MD#### OBKatherin, CDIFQ ####[address] [place] [phone] Director: Calin Tapia MD#### ACALPF ####[facility] [address] [place] [address] [id number] Lab Director: Jossue Valdez MD Vibrio sp PCR NEGATIVE: No Vibrio (V. vulnificus, V, parahaemolyticus and V. cholerae) DNA Normal VIBNEG [facility] Comment on above: Result Comment: Dete cted Performed By: #### S TLPCR ####[facility] [address] [place], [place] [phone])[phone] Director: John Mason, [address] [place] [address] Lab Director: Calin Tapia MD#### OBKatherin, CDIFQ ####[address] [place] [address] Lab Director: Calin Tapia MD#### ACALPF ####[facility] [address] [place] [address] Lab Director: Jossue Valdez MD Yersinia gene PCR Negative Normal YERNEG [facility] Comment on above: Performed By: #### S TLPCR ####[facility] [address] [place], [place] [id number])[phone] Director: John Mason [address] , [place] [phone] Lab Director: Calin Tapia MD#### OBN, CDIFQ ####[address] [place] [address] Lab Director: Calin Tapia MD#### ACALPF ####[facility] [address] [place] [address] Lab Director: Jossue Valdez MD C diff Ag + Toxinon 01-16-20 C diff Ag + Toxin Negative Normal NEG [facility] Comment on above: Result Comment: No C . difficile antigen and Toxin Detected. Performed By: #### S TLPCR ####[facility] [address] [place] [address] Lab Director: John Mason, [address] [place] [address] Lab Director: Calin Tapia MD#### OBKatherin CDIFQ ####[address] [place] [address] Lab Director: Calin Tapia MD#### ACALPF ####[facility] [address] [place] [address] Lab Director: Jossue Valdez MD Specimen Description .FECES Normal [facility] Comment on above: Performed By: #### S TLPCR ####[place] [address] [place] [address] Lab Director: John Mason, [address] [place] [address] Lab Director: Calin Tapia MD#### OBKatherin CDIFQ ####[address] [place] [address] Lab Director: Calin Tapia MD#### ACALPF ####[facility] [address]amt[address] [place] [address] Lab Director: Jossue Valdez MD Occult Blood, Fecalon 2023 Occult Blood 1 Negative Normal NEG [facility] Comment on above: Performed By: #### S TLPCR ####[facility] [address]us[address] [place], [place] [phone] Director: John Mason, [address] , [place] [phone])[phone] Director: Calin Tapia MD#### OBKatherin CDIFQ ####[address] [place] [address] Lab Director: Calin Tapia MD#### ACALPF ####[facility] [address] [place], [place] [id number] Lab Director: Jossue Valdez MD Specimen 1 Date [id number] [facility] Comment on above: Performed By: #### S TLPCR ####[place] [address] [place], [place] [phone])[phone] Director: John Mason, [address] [place] [address] Lab Director: Calin Tapia MD#### LB ALTAMIRANOFQ ####[address] , [place] 1974783 Lab Director: Calin Tapia MD#### ACALPF ####[facility] [address]zg[address] [place] [address] Lab Director: Jossue Valdez MD Specimen 1 Time 0900 [facility] Comment on above: Performed By: #### S TLPCR ####[facility] [place] [place], [place] [id number])[phone] Director: John Mason, [address] , [place] [phone] Director: Calin Tapia MD#### EVELIA CDIFQ ####[address] [place] [address] [facility] Director: Calin Tapia MD#### ACALPF ####[facility] [address]ms[address] [place] [address] lab Director: Jossue Valdez MD C-Reactive Proteinon 024 CRP High sensitivity method [Mass/Vol] mg/L 0.0 - 5.0 mg/L [facility] CRP [Mass/Vol] mg/L Normal 0.0-5.0 [facility] Comment on above: Performed By: #### C ELPX ####[facility] [address] [place], [place] [id number] lab Director: John Mason MD#### CP, CDP, CRP ####[address] [place] [address] Lab Director: Calin Tapia MD CBC with Auto Differentialon 01-15-2024 Basophils (Bld) [#/Vol] 0.06 10*3/uL [facility] Basophils/100 WBC (Bld) 1 % 0 - 2 % [facility] Eosinophils (Bld) [#/Vol] 0.16 10*3/uL [facility] Eosinophils/100 WBC (Bld) 2 % 1 - 4 % [facility] Erythrocyte distribution width (RBC) [Ratio] 11.8 % 11.8 - 14.4 % [facility] Hematocrit (Bld) [Volume fraction] 40.9 % 36.3 - 47.1 % [facility] Hemoglobin (Bld) [Mass/Vol] 14.7 g/dL 11.9 - 15.1 g/dL [facility] Immature granulocytes (Bld) [#/Vol] 0.03 10*3/uL [facility] Immature granulocytes/100 WBC (Bld) 0 % 0 [facility] Interpretation and review of laboratory results Abnormal [facility] Lymphocytes/100 WBC (Bld) 22 % Low 24 - 43 % [facility] Lymphocytes/100 WBC (Bld) 1.92 % [facility] MCH (RBC) [Entitic mass] 34.3 pg High 25.2 - 33.5 pg [facility] MCHC (RBC) [Mass/Vol] 35.9 g/dL High 28.4 - 34.8 g/dL [facility] MCV (RBC) [Entitic vol] 95.3 fL 82.6 - 102.9 fL [facility] Monocytes/100 WBC (Bld) 6 % 3 - 12 % [facility] Monocytes/100 WBC (Bld) 0.50 % [facility] Neutrophils/100 WBC (Bld) 70 % High 36 - 65 % [facility] Nucleated RBC/100 WBC (Bld) [Ratio] 0.0 % 0.0 per 100 WBC [facility] Platelet mean volume (Bld) [Entitic vol] 9.8 fL 8.1 - 13.5 fL [facility] Platelets (Bld) [#/Vol] 342 10*3/uL [facility] RBC (Bld) [#/Vol] 4.29 10*6/uL 3.95 - 5.1 1 m/uL [facility] Segmented neutrophils/100 WBC (Bld) 6.04 % [facility] WBC other (Bld) [#/Vol] 8.7 [facility] CBC with Diffon 01-15-2024 Abs. Basophil 0.06 k/uL Normal 0.00-0.20 [place] Comment on above: Performed By: #### C ELPX ####[facility] [address] [place] [address] Lab Director: John Mason MD#### CP, CDP, CRP ####[facility] [place] [address] Lab Director: Calin Tapia MD Abs.Imm.Granulocyte 0.03 k/uL Normal 0.00-0.30 [facility] Comment on above: Performed By: #### C ELPX ####[address] [address] Lab Director: John Mason MD#### CP, CDP, CRP ####[address] [place], [place] 0673083 Lab Director: Calin Tapia MD Abs.Neutrophil (Seg) 6.04 k/uL Normal 1.50-8.10 [facility] Comment on above: Performed By: #### C ELPX ####[address] [address] Lab Director: John Mason MD#### CP, CDP, CRP ####[address] [place] 7514483 Lab Director: Calin Tapia MD Basophils/100 WBC (Bld) 1 % Normal 0-2 [facility] Comment on above: Performed By: #### C ELPX ####[address] [phone])[phone] Director: John Mason MD#### CP, CDP, CRP ####[address] [place] [address]14483 Lab Director: Calin Tapia MD Eosinophils (Bld) [#/Vol] 0.16 10*3/uL Normal 0.00-0.44 [facility] Comment on above: Performed By: #### C ELPX ####[address] [address] Lab Director: John Mason MD#### CP, CDP, CRP ####[address] [place], [place] 9910983 Lab Director: Calin Tapia MD Eosinophils/100 WBC (Bld) 2 % Normal 1-4 [facility] Comment on above: Performed By: #### C ELPX ####[address] [address] Lab Director: John Mason MD#### CP, CDP, CRP ####[address] [place] [address] Lab Director: Calin Tapia MD Erythrocyte distribution width (RBC) [Ratio] 11.8 % Normal 11.8-14.4 [facility] Comment on above: Performed By: #### C ELPX ####[address] [address] Lab Director: John Mason MD#### CP, CDP, CRP ####[address] [place] [address] Lab Director: Calin Tapia MD Hematocrit (Bld) [Volume fraction] 40.9 % Normal 36.3-47.1 [facility] Comment on above: Performed By: #### C ELPX ####[address] [address] Lab Director: John Mason MD#### CP, CDP, CRP ####[address] [place], [place] 0858583 Lab Director: Calin Tapia MD Hemoglobin (Bld) [Mass/Vol] 14.7 g/dL Normal 11.9-15.1 [facility] Comment on above: Performed By: #### C ELPX ####[address] [address] Lab Director: John Mason MD#### CP, CDP, CRP ####[address] [place], [place] 6687883 Lab Director: Calin Tapia MD Immature granulocytes/100 WBC (Bld) 0 % Normal 0 [facility] Comment on above: Performed By: #### C ELPX ####[address] [phone])[phone] Director: John Mason MD#### CP, CDP, CRP ####[address] [place] [address]483 Lab Director: Calin Tapia MD Lymphocytes (Bld) [#/Vol] 1.92 10*3/uL Normal 1.10-3.70 [facility] Comment on above: Performed By: #### C ELPX ####[address] [phone] Director: John Mason MD#### CP, CDP, CRP ####[address] [place] 7514483 Lab Director: Calin Tapia MD Lymphocytes/100 WBC (Bld) 22 % Low 24-43 [facility] Comment on above: Performed By: #### C ELPX ####[address] [phone])[phone] Director: John Mason MD#### CP, CDP, CRP ####[address] [place] 7514483 Lab Director: Calin Tapia MD MCH (RBC) [Entitic mass] 34.3 pg High 25.2-33.5 [facility] Comment on above: Performed By: #### C ELPX ####[address] [phone] Director: John Mason MD#### CP, CDP, CRP ####[address] [place] 7514483 Lab Director: Calin Tapia MD MCHC (RBC) [Mass/Vol] 35.9 g/dL High 28.4-34.8 [facility] Comment on above: Performed By: #### C ELPX ####[facility] [address] [place] [address] Lab Director: John Mason MD#### CP, CDP, CRP ####[address] [place] 7514483 Lab Director: Calin Tapia MD MCV (RBC) [Entitic vol] 95.3 fL Normal 82.6-102.9 [facility] Comment on above: Performed By: #### C ELPX ####[address] [phone] Director: John Mason MD#### CP, CDP, CRP ####[address] [place] [address]14483 Lab Director: Calin Tapia MD Monocytes (Bld) [#/Vol] 0.50 10*3/uL Normal 0.10-1.20 [facility] Comment on above: Performed By: #### C ELPX ####[address] [phone])[phone] Director: John Mason MD#### CP, CDP, CRP ####[address] [place] 7514483 Lab Director: Calin Tapia MD Monocytes/100 WBC (Bld) 6 % Normal 3-12 [facility] Comment on above: Performed By: #### C ELPX ####[address] [phone])[phone] Director: John Mason MD#### CP, CDP, CRP ####[address] [place] [address]483 Lab Director: Calin Tapia MD Neutrophil (Seg) 70 % High 36-65 [facility] Comment on above: Performed By: #### C ELPX ####[address] [phone] Director: John Mason MD#### CP, CDP, CRP ####[address] [place], [place] 9810183 Lab Director: Calin Taipa MD NRBC Automated 0.0 per 100 WBC Normal 0.0 [facility] Comment on above: Performed By: #### C ELPX ####[place] [address] [place] [place], [place] [address])[phone] Director: John Mason MD#### CP, CDP, CRP ####[address] [place], [place] 5439983 Lab Director: Calin Tapia MD Platelet mean volume (Bld) [Entitic vol] 9.8 fL Normal 8.1-13.5 [facility] Comment on above: Performed By: #### C ELPX ####[address] [address])[phone] Director: John Mason MD#### CP, CDP, CRP ####[address] [place] 7514483 Lab Director: Calin Tapia MD Platelets (Bld) [#/Vol] 342 10*3/uL Normal 138-453 [facility] Comment on above: Performed By: #### C ELPX ####[address] [phone])[phone] Director: John Mason MD#### CP, CDP, CRP ####[address] [place] [address]65[address] Lab Director: Calin Tapia MD RBC (Bld) [#/Vol] 4.29 10*6/uL Normal 3.95-5.11 [facility] Comment on above: Performed By: #### C ELPX ####[place] [address] [place] [place], [place] [phone])[phone] Director: John Mason MD#### CP, CDP, CRP ####[address] [place] [address] Lab Director: Calin Tapia MD WBC (Bld) [#/Vol] 8.7 10*3/uL Normal 3.5-11.3 [facility] Comment on above: Performed By: #### C ELPX ####[place] [address] [place] [place], [place] [phone])[phone] Director: John Mason MD#### CP, CDP, CRP ####[address] [place] [address] Lab Director: Calin Tapia MD Celiac Reflex Panelon 2023 IgA [Mass/Vol] 281 mg/dL Normal 70-400 [facility] Comment on above: Performed By: #### C ELPX ####[address] [phone] Director: John Mason MD#### CP, CDP, CRP ####[address] [place] [address] Lab Director: Calin Tapia MD Comp Metabolic Profon 6 Albumin [Mass/Vol] 4.9 g/dL Normal 3.5-5.2 [facility] Comment on above: Performed By: #### C ELPX ####[place] [address] [place] [place], [place] [phone] Director: John Mason MD#### CP, CDP, CRP ####[address] [place] [address] Lab Director: Calin Tapia MD Albumin/Glob Ratio 1.8 Normal 1.0-2.5 [facility] Comment on above: Performed By: #### C ELPX ####[place] [address] [place] [place], [place] [id number])[phone] Director: John Mason MD#### CP, CDP, CRP ####[address] [place], [place] 6171183 Lab Director: Calin Tapia MD Alkaline Phos 59 U/L Normal 35-104 [place] Comment on above: Performed By: #### C ELPX ####[place] [address] [place] [place], [place] [id number])[phone] Director: John Mason MD#### CP, CDP, CRP ####[address] [place] [address])[phone] Director: Calin Tapia MD ALT [Catalytic activity/Vol] 26 U/L Normal 5-33 [facility] Comment on above: Performed By: #### C ELPX ####[address] [phone] Director: John Mason MD#### CP, CDP, CRP ####[address] [place] [id number])[phone] Director: Calin Tapia MD Anion gap [Moles/Vol] 9 mmol/L Normal 9-17 [facility] Comment on above: Performed By: #### C ELPX ####[address] [phone] Director: John Mason MD#### CP, CDP, CRP ####[address] [place] [id number])[phone] Director: Calin Tapia MD AST [Catalytic activity/Vol] 25 U/L Normal <32 [facility] Comment on above: Performed By: #### C ELPX ####[address] [phone] Director: John Mason MD#### CP, CDP, CRP ####[address] , [place] 7497983 Lab Director: Calin Tapia MD Bilirubin [Mass/Vol] 0.4 mg/dL Normal 0.3-1.2 [facility] Comment on above: Performed By: #### C ELPX ####[address] [address] Lab Director: John Mason MD#### CP, CDP, CRP ####[address] [place], [place] 1568983 Lab Director: Calin Tapia MD BUN/CRE Ratio 10 Normal 9-20 [place] Comment on above: Performed By: #### C ELPX ####[address] [address] [address] Lab Director: John Mason MD#### CP, CDP, CRP ####[address] [place] [address] Lab Director: Calin Tapia MD Calcium [Mass/Vol] 9.4 mg/dL Normal 8.6-10.4 [facility] Comment on above: Performed By: #### C ELPX ####[address] [address] Lab Director: John Mason MD#### CP, CDP, CRP ####[address] [place] [address] Lab Director: Calin Tapai MD Chloride [Moles/Vol] 104 mmol/L Normal 98-107 [facility] Comment on above: Performed By: #### C ELPX ####[address] [address] Lab Director: John Mason MD#### CP, CDP, CRP ####[address] [place] [address] Lab Director: Calin Tapia MD CO2 [Moles/Vol] 28 mmol/L Normal 20-31 [facility] Comment on above: Performed By: #### C ELPX ####[address] [place] [address] Lab Director: John Mason MD#### CP, CDP, CRP ####[address] [place], [place] 0[address]83 Lab Director: Calin Tapia MD Creatinine [Mass/Vol] 0.7 mg/dL Normal 0.5-0.9 [facility] Comment on above: Performed By: #### C ELPX ####[address] [place] [address] Lab Director: John Mason MD#### CHRISTINE, CDP, CRP ####[address] [place], [place] [address] Lab Director: Calin Tapia MD GFR/1.73 sq M.predicted among non-blacks MDRD (S/P/Bld) [Vol rate/Area] mL/min/{1.73_m2} Normal >60 [facility] Comment on above: Result Comment: Thes e results are not intended for use in patients <18 years of age.eGFR results are calculated without a race factor using the 2020 CKD-EPI equation.Careful clinical correlation is recommended, particularly when comparing to results calculated using previous equations.The CKD-EPI equation is less accurate in patients with extremes of muscle mass, extra-renal metabolism of creatine, excessive creatine ingestion, or following therapy that affects renal tubular secretion. Performed By: #### C ELPX ####[facility] [place] [address] Lab Director: John Mason MD#### CP, CDP, CRP ####[address] [place], [place] [id number] Lab Director: Calin Tapia MD Glucose [Mass/Vol] 87 mg/dL Normal 70-99 [facility] Comment on above: Performed By: #### C ELPX ####[facility] [place], [place] [phone] Director: John Mason MD#### CP, CDP, CRP ####[address] , [place] [address]83 Lab Director: Calin Tapia MD Potassium [Moles/Vol] 4.0 mmol/L Normal 3.7-5.3 [facility] Comment on above: Performed By: #### C ELPX ####[address] [place] [address] Lab Director: John Mason MD#### CP, CDP, CRP ####[address] , [place] 8[address]83 Lab Director: Calin Tapia MD Protein [Mass/Vol] 7.7 g/dL Normal 6.4-8.3 [facility] Comment on above: Performed By: #### C ELPX ####[address] [place], [place] [phone] Director: John Mason MD#### CP, CDP, CRP ####[address] , [place] 45[address]683 Lab Director: Calin Tapia MD Sodium [Moles/Vol] 141 mmol/L Normal 135-144 [facility] Comment on above: Performed By: #### C ELPX ####[facility] [place] [place], [place] [phone] Director: John Mason MD#### CP, CDP, CRP ####[address] [place] [address] Lab Director: Calin Tapia MD Urea nitrogen [Mass/Vol] 7 mg/dL Normal 6-20 [facility] Comment on above: Performed By: #### C ELPX ####[facility] [address] [place] [address] Lab Director: John Mason MD#### CP, CDP, CRP ####[facility] [place], [place] 5375[address] Lab Director: Calin Tapia MD Comprehensive Metabolic Pane [facility] 01-15-2024 Albumin [Mass/Vol] 4.9 g/dL 3.5 - 5.2 g/dL [facility] Albumin/Globulin [Mass ratio] 1.8 {ratio} 1.0 - 2.5 [facility] ALP [Catalytic activity/Vol] 59 U/L 35 - 104 U/L [facility] ALT [Catalytic activity/Vol] 26 U/L 5 - 33 U/L [facility] Anion gap [Moles/Vol] 9 mmol/L 9 - 17 mmol/L [facility] AST [Catalytic activity/Vol] 25 U/L NINF - 32 U/L [facility] Bilirubin [Mass/Vol] 0.4 mg/dL 0.3 - 1 .2 mg/dL [facility] Calcium [Mass/Vol] 9.4 mg/dL 8.6 - 10. 4 mg/dL [facility] Chloride [Moles/Vol] 104 mmol/L 98 - 10 7 mmol/L [facility] CO2 [Moles/Vol] 28 mmol/L 20 - 31 mmol/L [facility] Creatinine [Mass/Vol] 0.7 mg/dL 0.5 - 0.9 mg/dL [facility] Est, Glom Filt Rate - [facility] Comment on above: These results are [...] [Mass/Vol] 87 mg/dL 70 - 99 mg/dL [facility] Potassium [Moles/Vol] 4.0 mmol/L 3.7 - 5.3 mmol/L [facility] Protein [Mass/Vol] 7.7 g/dL 6.4 - 8.3 g/dL [facility] Sodium [Moles/Vol] 141 mmol/L 135 - 144 mmol/L [facility] Urea nitrogen [Mass/Vol] 7 mg/dL 6 - 20 mg/dL [facility] Urea nitrogen/Creatinine [Mass ratio] 10 mg/mg 9 - 20 [facility] Food, Comprehensiveon 2023 Immunoglobulin E 14 IU/mL Normal 0-100 [facility] Comment on above: Performed By: #### I FOOD ####[address] [id number] lab Director: John Mason MD Chlamydia/GC,DNA Ampon 01-11 Chlamydia Probe Negative Normal NEG [facility] Comment on above: Result Comment: CHLA MYDIA TRACHOMATIS DNA not detected by nucleic acid amplification.This test is intended for medical purposes only and is not valid for the evaluation of suspected sexual abuse or for other forensic purposes.In certain contexts, culture may be required to meet applicable laws and regulations for diagnosis of C. trachomatis and N. gonorrhoeae infections.Per 2014 CDC recommendations, this test does not include confirmation of positive results by an alternative nucleic acid target. Performed By: #### S WC ####[address] [id number] lab Director: John Mason MD Gonorrhea Probe Negative Normal NEG [facility] Comment on above: Result Comment: NEIS SERIA GONORRHOEAE DNA not detected by nucleic acid amplification.This test is intended for medical purposes only and is not valid for the evaluation of suspected sexual abuse or for other forensic purposes.In certain contexts, culture may be required to meet applicable laws and regulations for diagnosis of C. trachomatis and N. gonorrhoeae infections.Per 2014 CDC recommendations, this test does not include confirmation of positive results by an alternative nucleic acid target. Performed By: #### S WCGP ####[facility] [address] [place] [address] Lab Director: John Mason MD Cult,Urineon 01-12-2024 Cult,Urine Specimen Description .CLEAN CATCH URINE Special Requests Site: Urine Culture NO SIGNIFICANT GROWTH Report Status FINAL 01/12/2024 Normal [facility] Comment on above: Performed By: #### U RC ####[facility] [address] [place] [address] lab Director: John Mason, [facility] [address] [address] lab Director: Calin Tapia MD CBC with Auto Differentialon 01-11-2024 Basophils (Bld) [#/Vol] 0.04 10*3/uL [facility] Basophils/100 WBC (Bld) 1 % 0 - 2 % [facility] Eosinophils (Bld) [#/Vol] 0.08 10*3/uL [facility] Eosinophils/100 WBC (Bld) 1 % 1 - 4 % [facility] Erythrocyte distribution width (RBC) [Ratio] 11.9 % 11.8 - 14.4 % [facility] Hematocrit (Bld) [Volume fraction] 37.5 % 36.3 - 47.1 % [facility] Hemoglobin (Bld) [Mass/Vol] 13.4 g/dL 11.9 - 15.1 g/dL [facility] Immature granulocytes (Bld) [#/Vol] [facility] Immature granulocytes/100 WBC (Bld) 0 % 0 [facility] Interpretation and review of laboratory results Abnormal [facility] Lymphocytes/100 WBC (Bld) 20 % Low 24 - 43 % [facility] Lymphocytes/100 WBC (Bld) 1.16 % [facility] MCH (RBC) [Entitic mass] 33.9 pg High 25.2 - 33.5 pg [facility] MCHC (RBC) [Mass/Vol] 35.7 g/dL High 28.4 - 34.8 g/dL [facility] MCV (RBC) [Entitic vol] 94.9 fL 82.6 - 102.9 fL [facility] Monocytes/100 WBC (Bld) 9 % 3 - 12 % [facility] Monocytes/100 WBC (Bld) 0.50 % [facility] Neutrophils/100 WBC (Bld) 69 % High 36 - 65 % [facility] Nucleated RBC/100 WBC (Bld) [Ratio] 0.0 % 0.0 per 100 WBC [facility] Platelet mean volume (Bld) [Entitic vol] 9.5 fL 8.1 - 13.5 fL [facility] Platelets (Bld) [#/Vol] 227 10*3/uL [facility] RBC (Bld) [#/Vol] 3.95 10*6/uL 3.95 - 5.1 1 m/uL [facility] Segmented neutrophils/100 WBC (Bld) 4.03 % [facility] WBC other (Bld) [#/Vol] 5.8 [facility] CBC with Diffon 01-11-2024 Abs. Basophil 0.04 k/uL Normal 0.00-0.20 [place] Comment on above: Performed By: #### L IP, CDP, CP, HCG ####[address] [place] [address] Lab Director: Calin Tapia MD Abs.Imm.Granulocyte <0.03 Normal 0.00-0.30 [facility] Comment on above: Performed By: #### L IP, CDP, CP, HCG ####[facility] [place] [address] Lab Director: Calin Tapia MD Abs.Neutrophil (Seg) 4.03 k/uL Normal 1.50-8.10 [facility] Comment on above: Performed By: #### L IP, CDP, CP, HCG ####[facility] , [place] [phone] Lab Director: Calin Tapia MD Basophils/100 WBC (Bld) 1 % Normal 0-2 [facility] Comment on above: Performed By: #### L IP, CDP, CP, HCG ####[address] [place] [phone] Lab Director: Calin Tapia MD Eosinophils (Bld) [#/Vol] 0.08 10*3/uL Normal 0.00-0.44 [facility] Comment on above: Performed By: #### L IP, CDP, CP, HCG ####[address] [place] [address] Lab Director: Calin Tapia MD Eosinophils/100 WBC (Bld) 1 % Normal 1-4 [facility] Comment on above: Performed By: #### L IP, CDP, CP, HCG ####[address] [place] [address] Lab Director: Calin Tapia MD Erythrocyte distribution width (RBC) [Ratio] 11.9 % Normal 11.8-14.4 [facility] Comment on above: Performed By: #### L IP, CDP, CP, HCG ####[address] , [place] [address] Lab Director: Calin Tapia MD Hematocrit (Bld) [Volume fraction] 37.5 % Normal 36.3-47.1 [facility] Comment on above: Performed By: #### L IP, CDP, CP, HCG ####[address] , [facility] Lab Director: Calin Tapia MD Hemoglobin (Bld) [Mass/Vol] 13.4 g/dL Normal 11.9-15.1 [facility] Comment on above: Performed By: #### L IP, CDP, CP, HCG ####[address] , [facility] Lab Director: Calin Tapia MD Immature granulocytes/100 WBC (Bld) 0 % Normal 0 [facility] Comment on above: Performed By: #### L IP, CDP, CP, HCG ####[address] , [place] [address] [facility] Director: Calin Tapia MD Lymphocytes (Bld) [#/Vol] 1.16 10*3/uL Normal 1.10-3.70 [facility] Comment on above: Performed By: #### L IP, CDP, CP, HCG ####[address] , [place] [address])[phone] Director: Calin Tapia MD Lymphocytes/100 WBC (Bld) 20 % Low 24-43 [facility] Comment on above: Performed By: #### L IP, CDP, CP, HCG ####[address] , [place] [address])[phone] Director: Calin Tapia MD MCH (RBC) [Entitic mass] 33.9 pg High 25.2-33.5 [facility] Comment on above: Performed By: #### L IP, CDP, CP, HCG ####[address] , [place] [address])[phone] Director: Calin Tapia MD MCHC (RBC) [Mass/Vol] 35.7 g/dL High 28.4-34.8 [facility] Comment on above: Performed By: #### L IP, CDP, CP, HCG ####[address] , [place] [address])[phone] Director: Calin Tapia MD MCV (RBC) [Entitic vol] 94.9 fL Normal 82.6-102.9 [facility] Comment on above: Performed By: #### L IP, CDP, CP, HCG ####[address] , [facility] Lab Director: Calin Tapia MD Monocytes (Bld) [#/Vol] 0.50 10*3/uL Normal 0.10-1.20 [facility] Comment on above: Performed By: #### L IP, CDP, CP, HCG ####[address] [place] [address] Lab Director: Calin Tapia MD Monocytes/100 WBC (Bld) 9 % Normal 3-12 [facility] Comment on above: Performed By: #### L IP, CDP, CP, HCG ####[address] , [place] [phone] Director: Calin Tapia MD Neutrophil (Seg) 69 % High 36-65 [facility] Comment on above: Performed By: #### L IP, CDP, CP, HCG ####[address] , [place] 0297883 Lab Director: Calin Tapia MD NRBC Automated 0.0 per 100 WBC Normal 0.0 [facility] Comment on above: Performed By: #### L IP, CDP, CP, HCG ####[address] , [place] [phone] Director: Calin Tapia MD Platelet mean volume (Bld) [Entitic vol] 9.5 fL Normal 8.1-13.5 [facility] Comment on above: Performed By: #### L IP, CDP, CP, HCG ####[address] , [place] [phone] Director: Calin Tapia MD Platelets (Bld) [#/Vol] 227 10*3/uL Normal 138-453 [facility] Comment on above: Performed By: #### L IP, CDP, CP, HCG ####[address] [place] [address] Lab Director: Calin Tapia MD RBC (Bld) [#/Vol] 3.95 10*6/uL Normal 3.95-5.11 [facility] Comment on above: Performed By: #### L IP, CDP, CP, HCG ####[facility] , [place] [address]23[address] lab Director: Calin Tapia MD WBC (Bld) [#/Vol] 5.8 10*3/uL Normal 3.5-11.3 [facility] Comment on above: Performed By: #### L IP, CDP, CP, HCG ####[facility] , [place] [id number] lab Director: Calin Tapia MD [facility] 01-11-2024 Albumin [Mass/Vol] 4.4 g/dL 3.5 - 5.2 g/dL [facility] Albumin/Globulin [Mass ratio] 1.7 {ratio} 1.0 - 2.5 [facility] ALP [Catalytic activity/Vol] 62 U/L 35 - 104 U/L [facility] ALT [Catalytic activity/Vol] 15 U/L 5 - 33 U/L [facility] Anion gap [Moles/Vol] 12 mmol/L 9 - 17 mmol/L [facility] AST [Catalytic activity/Vol] 18 U/L NINF - 32 U/L [facility] Bilirubin [Mass/Vol] 0.4 mg/dL 0.3 - 1 .2 mg/dL [facility] Calcium [Mass/Vol] 8.9 mg/dL 8.6 - 10. 4 mg/dL [facility] Chloride [Moles/Vol] 102 mmol/L 98 - 10 7 mmol/L [facility] CO2 [Moles/Vol] 24 mmol/L 20 - 31 mmol/L [facility] Creatinine [Mass/Vol] 0.6 mg/dL 0.5 - 0.9 mg/dL [facility] Est, Glom Filt Rate - [facility]F [facility] Comment on above: These results are not intended for use in patients <18 years of age. eGFR results are calculated without a race factor using the 2021 CKD-EPI equation. Careful clinical correlation is recommended, particularly when comparing to results calculated using previous equations. The CKD-EPI equation is less accurate in patients with extremes of muscle mass, extra-renal metabolism of creatine, excessive creatine ingestion, or following therapy that affects renal tubular secretion. Glucose [Mass/Vol] 91 mg/dL 70 - 99 mg/dL [facility] Potassium [Moles/Vol] 3.7 mmol/L 3.7 - 5.3 mmol/L [facility] Protein [Mass/Vol] 7.0 g/dL 6.4 - 8.3 g/dL [facility] Sodium [Moles/Vol] 138 mmol/L 135 - 144 mmol/L [facility] Urea nitrogen [Mass/Vol] 8 mg/dL 6 - 20 mg/dL [facility] Urea nitrogen/Creatinine [Mass ratio] 13 mg/mg 9 - [address] [facility] [address] ABDOMEN PELVIS W IV CONTR [place] 01-11-2024 CT ABDOMEN PELVIS W IV CONTRAST Normal [facility] CT Abdomen and Pelvis W cont rast [...] exam. 5. The bladder is prominently distended. [facility] RIS CONSOLIDATED EXAMINATION: CT OF THE ABDOMEN [...] to decubitus position, correlate with physical exam. [facility] Jamey Bourne MD - 01/11/2024 EXAMINATION: CT [...] exam. 5. The bladder is prominently distended. [facility] Radiology Study observation (narrative) [facility] CT Abdomen and Pelvis W cont rast IVOrdered By: Jamey Perez on 01-11-2024 [facility] [employer] [place] Work Phone: Comp Metabolic Profon 2023 Albumin [Mass/Vol] 4.4 g/dL Normal 3.5-5.2 [facility] Comment on above: Performed By: #### L IP, CDP, CP, HCG ####[address] [place] [address] Lab Director: Calin Tapia MD Albumin/Glob Ratio 1.7 Normal 1.0-2.5 [facility] Comment on above: Performed By: #### L IP, CDP, CP, HCG ####[address] , [place] [id number] lab Director: Calin Tapia MD Alkaline Phos 62 U/L Normal 35-104 [place] Comment on above: Performed By: #### L IP, CDP, CP, HCG ####[address] , [place] 0203[address] lab Director: Calin Tapia MD ALT [Catalytic activity/Vol] 15 U/L Normal 5-33 [facility] Comment on above: Performed By: #### L IP, CDP, CP, HCG ####[address] , [place] 859[address]83 lab Director: Calin Tapia MD Anion gap [Moles/Vol] 12 mmol/L Normal 9-17 [facility] Comment on above: Performed By: #### L IP, CDP, CP, HCG ####[address] , [place] 250[address]383 lab Director: Calin Tapia MD AST [Catalytic activity/Vol] 18 U/L Normal <32 [facility] Comment on above: Performed By: #### L IP, CDP, CP, HCG ####[address] , [place] 8240283 lab Director: Calin Tapia MD Bilirubin [Mass/Vol] 0.4 mg/dL Normal 0.3-1.2 [facility] Comment on above: Performed By: #### L IP, CDP, CP, HCG ####[address] , [place] [id number] Lab Director: Calin Tapia MD BUN/CRE Ratio 13 Normal 9-20 [place] Comment on above: Performed By: #### L IP, CDP, CP, HCG ####[address] , [place] 30[address]83 lab Director: Calin Tapia MD Calcium [Mass/Vol] 8.9 mg/dL Normal 8.6-10.4 [facility] Comment on above: Performed By: #### L IP, CDP, CP, HCG ####[address] , [place] [phone] lab Director: Calin Tapia MD Chloride [Moles/Vol] 102 mmol/L Normal 98-107 [facility] Comment on above: Performed By: #### L IP, CDP, CP, HCG ####[address] , [place] 675[address]83 lab Director: Calin Tapia MD CO2 [Moles/Vol] 24 mmol/L Normal 20-31 [facility] Comment on above: Performed By: #### L IP, CDP, CP, HCG ####[address] , [place] 155[address]83 lab Director: Calin Tapia MD Creatinine [Mass/Vol] 0.6 mg/dL Normal 0.5-0.9 [facility] Comment on above: Performed By: #### L IP, CDP, CP, HCG ####[address] , [place] 0[address] lab Director: Calin Tapia MD GFR/1.73 sq M.predicted among non-blacks MDRD (S/P/Bld) [Vol rate/Area] mL/min/{1.73_m2} Normal >60 [facility] Comment on above: Result Comment: Thes e results are not intended for use in patients <18 years of age.eGFR results are calculated without a race factor using the 2020 CKD-EPI equation.Careful clinical correlation is recommended, particularly when comparing to results calculated using previous equations.The CKD-EPI equation is less accurate in patients with extremes of muscle mass, extra-renal metabolism of creatine, excessive creatine ingestion, or following therapy that affects renal tubular secretion. Performed By: #### L IP, CDP, CP, HCG ####[address] , [place] 4505483 Lab Director: Calin Tapia MD Glucose [Mass/Vol] 91 mg/dL Normal 70-99 [facility] Comment on above: Performed By: #### L IP, CDP, CP, HCG ####[address] [place], [place] [address] lab Director: Calin Tapia MD Potassium [Moles/Vol] 3.7 mmol/L Normal 3.7-5.3 [facility] Comment on above: Performed By: #### L IP, CDP, CP, HCG ####[address] [place] [address] Lab Director: Calin Tapia MD Protein [Mass/Vol] 7.0 g/dL Normal 6.4-8.3 [facility] Comment on above: Performed By: #### L IP, CDP, CP, HCG ####[address] , [place] 4592483 Lab Director: Calin Tapia MD Sodium [Moles/Vol] 138 mmol/L Normal 135-144 [facility] Comment on above: Performed By: #### L IP, CDP, CP, HCG ####[address] [place] [address] lab Director: Calin Tapia MD Urea nitrogen [Mass/Vol] 8 mg/dL Normal 6-20 [facility] Comment on above: Performed By: #### L IP, CDP, CP, HCG ####[facility] [place] [address] lab Director: Calin Tapia MD HCG Qualitative, Serumon HCG ( test) Ql Negative NEGATIVE [facility] Comment on above: Specimens with hCG l evels near the threshold of the test (25 mIU/mL) may give a negative or indeterminate result. In such cases, another test should be performed with a new specimen in 48-72 hours. If early is suspected clinically in this setting, correlation with quantitative serum b-hCG level is suggested. [facility] has confirmed the use of plasma for this test. This has not been cleared or approved by the U.S. Food and Drug Administration. The FDA has determined that such clearance is not necessary. [facility] HCG Screen, Bloodon 01-11-20 24 HCG Screen, Blood Negative Normal NEG [facility] Comment on above: Result Comment: Spec imens with hCG levels near the threshold of the test (25 mIU/mL) may give a negative or indeterminate result. In such cases, another test should be performed with a new specimen in 48-72 hours. If early is suspected clinically in this setting, correlation with quantitative serum b-hCG level is suggested.[facility] has confirmed the use of plasma for this test. This has not been cleared or approved by the U.S. Food and Drug Administration. The FDA has determined that such clearance is not necessary. Performed By: #### L IP, CDP, CP, HCG ####[facility] [place] [address] lab Director: Calin Tapia MD Lactic Acidon 01-11-2024 Lactate (BldV) [Moles/Vol] 1.5 mmol/L 0.5 - 2.2 mmol/L [facility] Lactate [Moles/Vol] 1.5 mmol/L Normal 0.5-2.2 [facility] Comment on above: Performed By: #### L ACTIC ####[facility] [place] [address] lab Director: Calin Tapia MD Lipaseon 01-11-2024 Lipase [Catalytic activity/Vol] 22 U/L 13 - 60 U/L [facility] Lipase [Catalytic activity/Vol] 22 U/L Normal 13-60 [facility] Comment on above: Performed By: #### L IP, CDP, CP, HCG ####[facility] , [place] 5635783 Lab Director: Calin Tapia MD No Panel Informationon 01-10 [facility] Trichomonas/Wet Prepon 01-10 Trichomonas/Wet Prep Abnormal [facility] Comment on above: Performed By: #### W P ####[address] , [place] 6[address] lab Director: Calin Tapia MD Urinalysis w/ Microon 2023 Bilirubin, SemiQt,Ur Negative Normal NEG [facility] Comment on above: Performed By: #### U AMIC ####[address] , [place] 855[address]83 lab Director: Calin Tapia MD Blood, Urine Negative Normal NEG [facility] Comment on above: Performed By: #### U AMIC ####[address] , [place] [id number] Lab Director: Calin Tapia MD Clarity (U) Clear Normal CLEAR [facility] Comment on above: Performed By: #### U AMIC ####[facility] [place] , [place] [id number] Lab Director: Calin Tapia MD Color (U) Yellow Normal YEL [facility] Comment on above: Performed By: #### U AMIC ####[facility] , [place] [id number] Lab Director: Calin Tapia MD Epithelial cells LM Ql (Urine sed) 0 TO 2 Normal 0-25 [facility] Comment on above: Performed By: #### U AMIC ####[address] , [place] [id number] Lab Director: Calin Tapia MD Glucose Ql (U) Negative Normal NEG [facility] in Hospital Comment on above: Performed By: #### U AMIC ####[address] , [place] [address] Lab Director: Calin Tapia MD Ketones Ql (U) Negative Normal NEG [facility] in Hospital Comment on above: Performed By: #### U AMIC ####[address] [place] [address] Lab Director: Calin Tapia MD Leukocyte esterase Test strip Ql (U) Negative Normal NEG [facility] Comment on above: Performed By: #### U AMIC ####[address] [place] [address] [facility] Director: Calin Tapia MD Nitrite,Ur Negative Normal NEG [facility] Comment on above: Performed By: #### U AMIC ####[address] [place] [address] Lab Director: Calin Tapia MD PH,Ur 6.0 Normal 5.0-9.0 [facility] Comment on above: Performed By: #### U AMIC ####[address] [place] [address] Lab Director: Calin Tapia MD Protein Ql (U) Negative Normal NEG [facility] in Hospital Comment on above: Performed By: #### U AMIC ####[address] , [place] [phone] Lab Director: Calin Tapia MD Spec. [place],Ur 1.010 Normal 1.010-1.020 [facility] Comment on above: Performed By: #### U AMIC ####[address] [place] , [place] [id number] Lab Director: Calin Tapia MD Urine RBC's None Normal 0-2 [facility] Comment on above: Performed By: #### U AMIC ####[facility] , [place] [phone] lab Director: Calin Tapia MD Urine WBC's None Normal 0-5 [facility] Comment on above: Performed By: #### U AMIC ####[facility] , [place] [id number] lab Director: Calin Tapia MD Urobilinogen,Ur Normal Normal 0.0-1.0 [facility] Comment on above: Performed By: #### U AMIC ####[address] , [place] [id number] lab Director: Calin Tapia MD Urinalysis with Microscopico n 01-11-2024 Bilirubin Ql (U) Negative NEGATIVE [facility] Clarity (U) Clear Clear [facility] Color (U) Yellow Yellow [facility] Epithelial cells LM.HPF (Urine sed) [#/Area] 0 TO 2 [facility] Glucose Test strip (U) [Mass/Vol] Negative NEGATIVE mg/dL [facility] Hemoglobin Auto test strip Ql (U) Negative NEGATIVE [facility] Ketones (U) [Mass/Vol] Negative NEGATIVE mg/dL [facility] Leukocyte esterase Test strip Ql (U) Negative NEGATIVE [facility] Nitrite Ql (U) Negative NEGATIVE [facility] pH (U) 6.0 [pH] 5.0 - 9.0 [facility] Protein (U) [Mass/Vol] Negative NEGATIVE mg/dL [facility] RBC LM.HPF (Urine sed) [#/Area] None [facility] Specific gravity (U) [Rel density] 1.010 1.010 - 1.020 [facility] Urobilinogen Qn (U) Normal 0.0 - 1. 0 EU/dL [facility] WBC LM.HPF (Urine sed) [#/Area] None [facility] Wet prep, genitalon 01-11-20 Interpretation and review of laboratory results Abnormal [facility] Microorganism or agent identified Nom (Unsp spec) CLUE CELLS SEEN Abnormal [facility] Microorganism or agent identified Nom (Unsp spec) NO YEAST OBSERVED [facility] Microorganism or agent identified Nom (Unsp spec) NO TRICHOMONAS SEEN [facility] Specimen Description .VAGINA [facility] Chlamydia/GC DNA, TPon 12-03 Chlamydia Probe, TP Negative Normal NEG [facility] Comment on above: Result Comment: CHLA MYDIA TRACHOMATIS DNA not detected by nucleic acid amplification.This test is intended for medical purposes only and is not valid for the evaluation of suspected sexual abuse or for other forensic purposes.In certain contexts, culture may be required to meet applicable laws and regulations for diagnosis of C. trachomatis and N. gonorrhoeae infections.Per 2014 CDC recommendations, this test does not include confirmation of positive results by an alternative nucleic acid target. Performed By: #### C YTCGP ####[address] [place] [address] [facility] Director: John Mason MD Gonorrhea Probe, TP Negative Normal NEG [facility] Comment on above: Result Comment: NEIS SERIA GONORRHOEAE DNA not detected by nucleic acid amplification.This test is intended for medical purposes only and is not valid for the evaluation of suspected sexual abuse or for other forensic purposes.In certain contexts, culture may be required to meet applicable laws and regulations for diagnosis of C. trachomatis and N. gonorrhoeae infections.Per 2014 CDC recommendations, this test does not include confirmation of positive results by an alternative nucleic acid target. Performed By: #### C YTCGP ####[address] [place] [address] lab Director: John Mason MD HPV DNA High Riskon 12-04-19 HPV Interp Normal [facility] Comment on above: Result Comment: This test amplifies and detects DNA of 14 high-risk HPV types associated with cervical cancer and its precursor lesions (HPV types 16,18, 31, 33, 35, 39, 45, 51, 52, 56, 58, 59, 66, and 68).Sensitivity may be affected by specimen collection methods, stage of infection, and the presence of interfering substances.Results should be interpreted in conjunction with other available laboratory and clinical data.A negative high-risk HPV result does not exclude the possibility of future cytologic HSIL or underlying CIN2-3 or cancer.This test is intended for medical purposes only and is not valid for the evaluation of suspected sexual abuse or for other forensic purposes. Performed By: #### H PVH ####[address] [place] [address] Lab Director: John Mason MD HPV Type 16 Not detected [facility] Comment on above: Performed By: #### H PVH ####[address] [address] Lab Director: John Mason MD HPV Type 18 Not detected [facility] Comment on above: Performed By: #### H PVH ####[address] [address] Lab Director: John Mason MD Other High Risk HPV Not detected [facility] Comment on above: Performed By: #### H PVH ####[address] [place] [address] Lab Director: John Mason MD HPV DNA High Riskon 12-03-19 24 HPV Sample .THIN PREP [facility] Comment on above: Performed By: #### H PVH ####[facility] [address] [place] [address] Lab Director: John Mason MD Source CERVICAL MATERIAL [facility] Comment on above: Performed By: #### H PVH ####[address] [place] [address] Lab Director: John Mason MD Cytology Reporton 12-02-2023 Cytology report Cyto stain.thin prep Doc (Cvx/Vag) Normal [facility] UA w/Reflex Cultureon 2023 Bilirubin, SemiQt,Ur Negative Normal NEG [facility] Comment on above: Performed By: #### U AX, UMICAO ####[address] , [facility]83 [facility] Director: Calin Tapia MD Blood, Urine Negative Normal NEG [facility] Comment on above: Performed By: #### U AX, UMICAO ####[address] , [facility]83 [facility] Director: Calin Tapia MD Clarity (U) Clear Normal CLEAR [facility] Comment on above: Performed By: #### U AX, UMICAO ####[address] , [facility]83 [facility] Director: Calin Tapia MD Color (U) Yellow Normal YEL [facility] Comment on above: Performed By: #### U AX, UMICAO ####[address] , [facility] lab Director: Calin Tapia MD Glucose Ql (U) Negative Normal NEG [facility] in [facility] Comment on above: Performed By: #### U AX, UMICAO ####[address] , [facility] lab Director: Calin Tapia MD Ketones Ql (U) Negative Normal NEG [facility] in Hospital Comment on above: Performed By: #### U AX, UMICAO ####[address] , [facility] Lab Director: Calin Tapia MD Leukocyte esterase Test strip Ql (U) Negative Normal NEG [facility] Comment on above: Performed By: #### U AX, UMICAO ####[address] , [place] [phone] Director: Calin Tapia MD Nitrite,Ur Negative Normal NEG [facility] Comment on above: Performed By: #### U AX, UMICAO ####[address] , [place] [phone])[phone] Director: Calin Tapia MD PH,Ur 7.0 Normal 5.0-9.0 [facility] Comment on above: Performed By: #### U AX, UMICAO ####[address] [place] [address] Lab Director: Calin Tapia MD Protein Ql (U) Negative Normal NEG [facility] Comment on above: Performed By: #### U AX, UMICAO ####[address] , [facility]83[facility])[phone] Director: Calin Tapia MD Spec. [place],Ur 1.020 Normal 1.010-1.020 [facility] Comment on above: Performed By: #### U AX, UMICAO ####[address] , [place] [phone] Director: Calin Tapia MD Urobilinogen,Ur Normal Normal 0.0-1.0 [facility] Comment on above: Performed By: #### U AX, UMICAO ####[address] , [place] [address])[phone] Director: Calin Tapia MD Urinalysis,Microon 4 Amorphous sediment LM Ql (Urine sed) TRACE Abnormal [facility] Comment on above: Performed By: #### U AX, UMICAO ####[address] [place] [address] Lab Director: Calin Tapia MD Bacteria 1+ Abnormal [facility] Comment on above: Performed By: #### U AX, UMICAO ####[address] [place] [address] Lab Director: Calin Tapia MD Epithelial cells LM Ql (Urine sed) 0 TO 2 Normal 0-25 [facility] Comment on above: Performed By: #### U AX, UMICAO ####[facility] , [place] 6[address]83 lab Director: Calin Tapia MD Urine RBC's None Normal 0-2 [facility] Comment on above: Performed By: #### U AX, UMICAO ####[address] [place] [address] lab Director: Calin Tapia MD Urine WBC's 0 TO 2 Normal 0-5 [facility] Comment on above: Performed By: #### U AX, UMICAO ####[address] [place] [address] lab Director: Calin Tapia MD HCG, ,Urineon 11-30 Beta HCG ( test) Ql (U) Negative Normal NEG [facility] Comment on above: Result Comment: Spec imens with hCG levels near the threshold of the test (25 mIU/mL) may give a negative or indeterminate result. In such cases, another test should be performed with a new specimen in 48-72 hours. If early is suspected clinically in this setting, correlation with quantitative serum b-hCG level is suggested.[facility] has confirmed the use of plasma for this test. This has not been cleared or approved by the U.S. Food and Drug Administration. The FDA has determined that such clearance is not necessary. Performed By: #### U MICAO, UHCG, UAX ####[facility] [place] [address] lab Director: Calin Tapia MD UA w/Reflex Cultureon 2023 Bilirubin, SemiQt,Ur Negative Normal NEG [facility] Comment on above: Performed By: #### U MICAO, UHCG, UAX ####[address] , [place] 323[address]83 Lab Director: Calin Tapia MD Blood, Urine Negative Normal NEG [facility] Comment on above: Performed By: #### U MICAO, UHCG, UAX ####[address] , [place] 6104783 Lab Director: Calin Tapia MD Clarity (U) SLIGHTLY CLOUDY Abnormal CLEAR [facility] Comment on above: Performed By: #### U MICAO, UHCG, UAX ####[address] [place] [address] Lab Director: Calin Tapia MD Color (U) Yellow Normal YEL [facility] Comment on above: Performed By: #### U MICAO, UHCG, UAX ####[address] , [place] 050[address]83 Lab Director: Calin Tapia MD Glucose Ql (U) Negative Normal NEG [facility] in Hospital Comment on above: Performed By: #### U MICAO, UHCG, UAX ####[address] [place] [address] Lab Director: Calin Tapia MD Ketones Ql (U) Negative Normal NEG [facility] in [facility] Comment on above: Performed By: #### U MICAO, UHCG, UAX ####[address] , [place] 49[address]83 Lab Director: Calin Tapia MD Leukocyte esterase Test strip Ql (U) TRACE Abnormal NEG [facility] Comment on above: Performed By: #### U MICAO, UHCG, UAX ####[address] , [place] 5702583 Lab Director: Calin Tapia MD Nitrite,Ur Negative Normal NEG [facility] Comment on above: Performed By: #### U MICAO, UHCG, UAX ####[address] , [place] 0715383 Lab Director: Calin Tapia MD PH,Ur 7.5 Normal 5.0-9.0 [facility] Comment on above: Performed By: #### U MICAO, UHCG, UAX ####[address] [place] [address] lab Director: Calin Tapia MD Protein Ql (U) Negative Normal NEG [facility] Comment on above: Performed By: #### U MICAO, UHCG, UAX ####[address] , [place] 932[address]83 lab Director: Calin Tapia MD Spec. [place],Ur 1.015 Normal 1.010-1.020 [facility] Comment on above: Performed By: #### U MICAO, UHCG, UAX ####[address] [place] [address] Lab Director: Calin Tapia MD Urobilinogen,Ur Normal Normal 0.0-1.0 [facility] Comment on above: Performed By: #### U MICAO, UHCG, UAX ####[address] , [place] [address] [facility] Director: Calin Tapia MD Urinalysis,Microon 4 Amorphous sediment LM Ql (Urine sed) 3+ Abnormal [facility] Comment on above: Performed By: #### U MICAO, UHCG, UAX ####[address] , [place] 9[address]83 Lab Director: Calin Tapia MD Bacteria TRACE Abnormal NONE [facility] Comment on above: Performed By: #### U MICAO, UHCG, UAX ####[address] , [place] 5345483 Lab Director: Calin Tapia MD Epithelial cells LM Ql (Urine sed) 5 TO 10 Normal 0-25 [facility] Comment on above: Performed By: #### U MICAO, UHCG, UAX ####[address] , [place] 0288[address] Lab Director: Calin Tapia MD Urine RBC's 0 TO 2 Normal 0-2 [facility] Comment on above: Performed By: #### U MICAO, UHCG, UAX ####[address] , [place] 129[address]83 lab Director: Cailn Tapia MD Urine WBC's 2 TO 5 Normal 0-5 [facility] Comment on above: Performed By: #### U MICAO, UHCG, UAX ####[address] , [place] 037[address]83 Lab Director: Calin Tapia MD Basic Metabolic Profon 11-29 Anion gap [Moles/Vol] 9 mmol/L Normal 9-17 [facility] Comment on above: Performed By: #### C DP, BMP ####[address] , [place] 8077383 Lab Director: Calin Tapia MD BUN/CRE Ratio 17 Normal 9-20 [place] Comment on above: Performed By: #### C DP, BMP ####[address] , [place] 3034183 Lab Director: Calin Tapia MD Calcium [Mass/Vol] 9.0 mg/dL Normal 8.6-10.4 [facility] Comment on above: Performed By: #### C DP, BMP ####[address] , [place] 9827483 Lab Director: Calin Tapia MD Chloride [Moles/Vol] 106 mmol/L Normal 98-107 [facility] Comment on above: Performed By: #### C DP, BMP ####[facility] [place] [address] Lab Director: Calin Tapia MD CO2 [Moles/Vol] 24 mmol/L Normal 20-31 [facility] Comment on above: Performed By: #### C DP, BMP ####[facility] [place] [address] Lab Director: Calin Taipa MD Creatinine [Mass/Vol] 0.7 mg/dL Normal 0.5-0.9 [facility] Comment on above: Performed By: #### C DP, BMP ####[address] [place] [address] Lab Director: Calin Tapia MD GFR/1.73 sq M.predicted among non-blacks MDRD (S/P/Bld) [Vol rate/Area] mL/min/{1.73_m2} Normal >60 [facility] Comment on above: Result Comment: Thes e results are not intended for use in patients <18 years of age.eGFR results are calculated without a race factor using the 2020 CKD-EPI equation.Careful clinical correlation is recommended, particularly when comparing to results calculated using previous equations.The CKD-EPI equation is less accurate in patients with extremes of muscle mass, extra-renal metabolism of creatine, excessive creatine ingestion, or following therapy that affects renal tubular secretion. Performed By: #### C DP, BMP ####[facility] [place] [address] Lab Director: Calin Tapia MD Glucose [Mass/Vol] 84 mg/dL Normal 70-99 [facility] Comment on above: Performed By: #### C DP, BMP ####[facility] [place] [address] Lab Director: Calin Tapia MD Potassium [Moles/Vol] 4.3 mmol/L Normal 3.7-5.3 [facility] Comment on above: Performed By: #### C DP, BMP ####[address] , [place] 0100[address] Lab Director: Calin Tapia MD Sodium [Moles/Vol] 139 mmol/L Normal 135-144 [facility] Comment on above: Performed By: #### C DP, BMP ####[address] , [place] 0747683 Lab Director: Calin Tapia MD Urea nitrogen [Mass/Vol] 12 mg/dL Normal 6-20 [facility] Comment on above: Performed By: #### C DP, BMP ####[address] [place], [place] 9[address]83 Lab Director: Calin Tapia MD CBC with Diffon 11-30-2023 Abs. Basophil 0.10 k/uL Normal 0.00-0.20 [place] Comment on above: Performed By: #### C DP, BMP ####[address] [place] [address] Lab Director: Calin Tapia MD Abs.Imm.Granulocyte <0.03 Normal 0.00-0.30 [facility] Comment on above: Performed By: #### C DP, BMP ####[address] [place] [address] Lab Director: Calin Tapia MD Abs.Neutrophil (Seg) 3.81 k/uL Normal 1.50-8.10 [facility] Comment on above: Performed By: #### C DP, BMP ####[address] , [place] 0635[address] Lab Director: Calin Tapia MD Basophils/100 WBC (Bld) 1 % Normal 0-2 [facility] Comment on above: Performed By: #### C DP, BMP ####[address] [place] [address] Lab Director: Calin Tapia MD Eosinophils (Bld) [#/Vol] 0.29 10*3/uL Normal 0.00-0.44 [facility] Comment on above: Performed By: #### C DP, BMP ####[address] , [place] [address] Lab Director: Calin Tapia MD Eosinophils/100 WBC (Bld) 4 % Normal 1-4 [facility] Comment on above: Performed By: #### C DP, BMP ####[address] , [place] [address] Lab Director: Calin Tapia MD Erythrocyte distribution width (RBC) [Ratio] 12.0 % Normal 11.8-14.4 [facility] Comment on above: Performed By: #### C DP, BMP ####[address] , [place] [address] Lab Director: Calin Tapia MD Hematocrit (Bld) [Volume fraction] 35.5 % Low 36.3-47.1 [facility] Comment on above: Performed By: #### C DP, BMP ####[address] , [facility]83 Lab Director: Calin Tapia MD Hemoglobin (Bld) [Mass/Vol] 12.3 g/dL Normal 11.9-15.1 [facility] Comment on above: Performed By: #### C DP, BMP ####[address] , [facility] Lab Director: Calin Tapia MD Immature granulocytes/100 WBC (Bld) 0 % Normal 0 [facility] Comment on above: Performed By: #### C DP, BMP ####[address] [id number] [facility] Director: Calin Tapia MD Lymphocytes (Bld) [#/Vol] 3.35 10*3/uL Normal 1.10-3.70 [facility] Comment on above: Performed By: #### C DP, BMP ####[address] , [facility]83419)[phone] Director: Calin Tapia MD Lymphocytes/100 WBC (Bld) 41 % Normal 24-43 [facility] Comment on above: Performed By: #### C DP, BMP ####[address] , [facility]83419)[phone] Director: Calin Tapia MD MCH (RBC) [Entitic mass] 33.0 pg Normal 25.2-33.5 [facility] Comment on above: Performed By: #### C DP, BMP ####[address] , [facility]83[facility])[phone] Director: Calin Tapia MD MCHC (RBC) [Mass/Vol] 34.6 g/dL Normal 28.4-34.8 [facility] Comment on above: Performed By: #### C DP, BMP ####[address] , [phone] Director: Calin Tapia MD MCV (RBC) [Entitic vol] 95.2 fL Normal 82.6-102.9 [facility] Comment on above: Performed By: #### C DP, BMP ####[address] , [facility]83419)[phone] Director: Calin Tapia MD Monocytes (Bld) [#/Vol] 0.67 10*3/uL Normal 0.10-1.20 [facility] Comment on above: Performed By: #### C DP, BMP ####[address] , [facility]94 Lab Director: Calin Tapia MD Monocytes/100 WBC (Bld) 8 % Normal 3-12 [facility] Comment on above: Performed By: #### C DP, BMP ####[address] [place] [address] Lab Director: Calin Tapia MD Neutrophil (Seg) 46 % Normal 36-65 [facility] Comment on above: Performed By: #### C DP, BMP ####[address] , [facility] Lab Director: Calin Tapia MD NRBC Automated 0.0 per 100 WBC Normal 0.0 [facility] Comment on above: Performed By: #### C DP, BMP ####[address] [place] [address] Lab Director: Calin Tapia MD Platelet mean volume (Bld) [Entitic vol] 9.3 fL Normal 8.1-13.5 [facility] Comment on above: Performed By: #### C DP, BMP ####[address] [place] [address] Lab Director: Calin Tapia MD Platelets (Bld) [#/Vol] 236 10*3/uL Normal 138-453 [facility] Comment on above: Performed By: #### C DP, BMP ####[address] , [place] [address])[phone] Director: Calin Tapia MD RBC (Bld) [#/Vol] 3.73 10*6/uL Low 3.95-5.11 [facility] Comment on above: Performed By: #### C DP, BMP ####[address] [place] [address] Lab Director: Calin Tapia MD WBC (Bld) [#/Vol] 8.2 10*3/uL Normal 3.5-11.3 [facility] Comment on above: Performed By: #### C DP, BMP ####[address] , [place] 1135083 Lab Director: Calin Tapia MD TSH w/reflex to FT4on 2023 Thyroid Stim. Horm. 4.71 uIU/mL Normal 0.30-5.00 [facility] Comment on above: Performed By: #### T SHX ####[address] , [place] 718[address]83 Lab Director: Calin Tapia MD NM HEPATOBILIARY SCAN W PHAR MACOLOGICAL INTERVENTIONon 11-24-2023 NM HEPATOBILIARY SCAN W PHARMACOLOGICAL INTERVENTION Normal [facility] H. pylori Antigenon 11-19-19 24 H. pylori Antigen Specimen Description .FECES Direct Exam NEGATIVE Report Status FINAL 11/19/2023 Normal [facility] Comment on above: Performed By: #### F HPY ####[facility] [place], [place] [id number] Lab Director: John Mason [address] , [place] [address] Lab Director: Calin Tapia MD Basic Metabolic Profon 11-10 Anion gap [Moles/Vol] 12 mmol/L Normal 04-19 [facility] Comment on above: Performed By: #### C DP, BMP, LIVP, MG ####[address] , [place] [address]83 Lab Director: Calin Tapia MD BUN/CRE Ratio 16 Normal 04-22 [place] Comment on above: Performed By: #### C DP, BMP, LIVP, MG ####[address] [place] [address] Lab Director: Calin Tapia MD Calcium [Mass/Vol] 9.6 mg/dL Normal 8.6-10.4 [facility] Comment on above: Performed By: #### C DP, BMP, LIVP, MG ####[facility] [place] , [place] 6995383 Lab Director: Calin Tapia MD Chloride [Moles/Vol] 104 mmol/L Normal 98-107 [facility] Comment on above: Performed By: #### C DP, BMP, LIVP, MG ####[facility] , [place] 78[address]83 lab Director: Calin Tapia MD CO2 [Moles/Vol] 23 mmol/L Normal 20-31 [facility] Comment on above: Performed By: #### C DP, BMP, LIVP, MG ####[facility] [place] [address] lab Director: Calin Tapia MD Creatinine [Mass/Vol] 0.5 mg/dL Normal 0.5-0.9 [facility] Comment on above: Performed By: #### C DP, BMP, LIVP, MG ####[facility] [place] , [place] [id number] lab Director: Calin Tapia MD GFR/1.73 sq M.predicted among non-blacks MDRD (S/P/Bld) [Vol rate/Area] mL/min/{1.73_m2} Normal >60 [facility] Comment on above: Result Comment: Thes e results are not intended for use in patients <18 years of age.eGFR results are calculated without a race factor using the 2020 CKD-EPI equation.Careful clinical correlation is recommended, particularly when comparing to results calculated using previous equations.The CKD-EPI equation is less accurate in patients with extremes of muscle mass, extra-renal metabolism of creatine, excessive creatine ingestion, or following therapy that affects renal tubular secretion. Performed By: #### C DP, BMP, LIVP, MG ####[facility] [place] , [place] 5[address] lab Director: Calin Tapia MD Glucose [Mass/Vol] 111 mg/dL High 70-99 [facility] Comment on above: Performed By: #### C DP, BMP, LIVP, MG ####[address] [place] [address] Lab Director: Calin Tapia MD Potassium [Moles/Vol] 4.2 mmol/L Normal 3.7-5.3 [facility] Comment on above: Performed By: #### C DP, BMP, LIVP, MG ####[address] [place] [address] Lab Director: Calin Tapia MD Sodium [Moles/Vol] 139 mmol/L Normal 135-144 [facility] Comment on above: Performed By: #### C DP, BMP, LIVP, MG ####[address] [place] [address] Lab Director: Calin Tapia MD Urea nitrogen [Mass/Vol] 8 mg/dL Normal 6-20 [facility] Comment on above: Performed By: #### C DP, BMP, LIVP, MG ####[address] [place] [address] Lab Director: Calin Tapia MD CBC with Diffon 11-11-2023 Abs. Basophil <0.03 Normal 0.00-0.20 [place] Comment on above: Performed By: #### C DP, BMP, LIVP, MG ####[address] [place] [address] Lab Director: Calin Tapia MD Abs. Eosinophil <0.03 Normal 0.00-0.44 [facility] Comment on above: Performed By: #### C DP, BMP, LIVP, MG ####[address] , [place] 5757[address] Lab Director: Calin Tapia MD Abs.Imm.Granulocyte 0.04 k/uL Normal 0.00-0.30 [facility] Comment on above: Performed By: #### C DP, BMP, LIVP, MG ####[address] , [place] 3088[address] Lab Director: Calin Tapia MD Abs.Neutrophil (Seg) 7.69 k/uL Normal 1.50-8.10 [facility] Comment on above: Performed By: #### C DP, BMP, LIVP, MG ####[address] , [facility]83 Lab Director: Calin Tapia MD Basophils/100 WBC (Bld) 0 % Normal 0-2 [facility] Comment on above: Performed By: #### C DP, BMP, LIVP, MG ####[address] , [facility]83 lab Director: Calin Tapia MD Eosinophils/100 WBC (Bld) 0 % Low 1-4 [facility] Comment on above: Performed By: #### C DP, BMP, LIVP, MG ####[address] , [facility]83 Lab Director: Calin Tapia MD Erythrocyte distribution width (RBC) [Ratio] 12.0 % Normal 11.8-14.4 [facility] Comment on above: Performed By: #### C DP, BMP, LIVP, MG ####[address] , [facility]83 Lab Director: Calin Tapia MD Hematocrit (Bld) [Volume fraction] 34.7 % Low 36.3-47.1 [facility] Comment on above: Performed By: #### C DP, BMP, LIVP, MG ####[address] , [facility] lab Director: Calin Tapia MD Hemoglobin (Bld) [Mass/Vol] 12.2 g/dL Normal 11.9-15.1 [facility] Comment on above: Performed By: #### C DP, BMP, LIVP, MG ####[address] , [place] 910[address]83 [facility] Director: Calin Tapia MD Immature granulocytes/100 WBC (Bld) 0 % Normal 0 [facility] Comment on above: Performed By: #### C DP, BMP, LIVP, MG ####[address] , [facility]83 [facility] Director: Calin Tapia MD Lymphocytes (Bld) [#/Vol] 1.60 10*3/uL Normal 1.10-3.70 [facility] Comment on above: Performed By: #### C DP, BMP, LIVP, MG ####[address] , [facility] lab Director: Calin Tapia MD Lymphocytes/100 WBC (Bld) 17 % Low 24-43 [facility] Comment on above: Performed By: #### C DP, BMP, LIVP, MG ####[address] , [place] [address] lab Director: Calin Tapia MD MCH (RBC) [Entitic mass] 33.5 pg Normal 25.2-33.5 [facility] Comment on above: Performed By: #### C DP, BMP, LIVP, MG ####[address] , [facility] Lab Director: Calin Tapia MD MCHC (RBC) [Mass/Vol] 35.2 g/dL High 28.4-34.8 [facility] Comment on above: Performed By: #### C DP, BMP, LIVP, MG ####[address] , [place] 9019[address] lab Director: Calin Tapia MD MCV (RBC) [Entitic vol] 95.3 fL Normal 82.6-102.9 [facility] Comment on above: Performed By: #### C DP, BMP, LIVP, MG ####[address] [place] [address] Lab Director: Calin Tapia MD Monocytes (Bld) [#/Vol] 0.32 10*3/uL Normal 0.10-1.20 [facility] Comment on above: Performed By: #### C DP, BMP, LIVP, MG ####[address] , [facility]83 Lab Director: Calin Tapia MD Monocytes/100 WBC (Bld) 3 % Normal 3-12 [facility] Comment on above: Performed By: #### C DP, BMP, LIVP, MG ####[address] , [facility] Lab Director: Calin Tapia MD Neutrophil (Seg) 80 % High 36-65 [facility] Comment on above: Performed By: #### C DP, BMP, LIVP, MG ####[address] , [place] 609[address]83 Lab Director: Calin Tapia MD NRBC Automated 0.0 per 100 WBC Normal 0.0 [facility] Comment on above: Performed By: #### C DP, BMP, LIVP, MG ####[address] , [place] [address])[phone] Director: Calin Tapia MD Platelet mean volume (Bld) [Entitic vol] 9.7 fL Normal 8.1-13.5 [facility] Comment on above: Performed By: #### C DP, BMP, LIVP, MG ####[address] , [place] 3067[address] Lab Director: Calin Tapia MD Platelets (Bld) [#/Vol] 279 10*3/uL Normal 138-453 [facility] Comment on above: Performed By: #### C DP, BMP, LIVP, MG ####[address] , [place] 1134083 Lab Director: Calin Tapia MD RBC (Bld) [#/Vol] 3.64 10*6/uL Low 3.95-5.11 [facility] Comment on above: Performed By: #### C DP, BMP, LIVP, MG ####[address] , [place] 7198[address] Lab Director: Calin Tapia MD WBC (Bld) [#/Vol] 9.7 10*3/uL Normal 3.5-11.3 [facility] Comment on above: Performed By: #### C DP, BMP, LIVP, MG ####[address] , [place] 7[address] [facility] Director: Calin Tapia MD CT HEAD WO CONTRASTon 2023 CT HEAD WO CONTRAST Normal [facility] CT SOFT TISSUE NECK W CONTRA STon 11-11-2023 CT SOFT TISSUE NECK W CONTRAST Normal [facility] Liver Profileon 11-11-2023 Albumin [Mass/Vol] 4.6 g/dL Normal 3.5-5.2 [facility] Comment on above: Performed By: #### C DP, BMP, LIVP, MG ####[address] [place] [address]([facility])[phone] Director: Calin Tapia MD Albumin/Glob Ratio 2.0 Normal 1.0-2.5 [facility] Comment on above: Performed By: #### C DP, BMP, LIVP, MG ####[address] , [place] 217[address]83 Lab Director: Calin Tapia MD Alkaline Phos 44 U/L Normal 35-104 [place] Comment on above: Performed By: #### C DP, BMP, LIVP, MG ####[address] [place] [address] Lab Director: Calin Tapia MD ALT [Catalytic activity/Vol] 16 U/L Normal 5-33 [facility] Comment on above: Performed By: #### C DP, BMP, LIVP, MG ####[address] [place] [address] Lab Director: Calin Tapia MD AST [Catalytic activity/Vol] 17 U/L Normal <32 [facility] Comment on above: Performed By: #### C DP, BMP, LIVP, MG ####[address] , [place] 28[address] Lab Director: Calin Tapia MD Bilirubin [Mass/Vol] 0.3 mg/dL Normal 0.3-1.2 [facility] Comment on above: Performed By: #### C DP, BMP, LIVP, MG ####[address] [place] [address] Lab Director: Calin Tapia MD Bilirubin, Indirect Can not be calculated Normal 0.0-1 .0 [facility] Comment on above: Performed By: #### C DP, BMP, LIVP, MG ####[address] , [place] 385[address]83 Lab Director: Calin Tapia MD Bilirubin.indirect [Mass/Vol] mg/dL Normal <0.3 [facility] Comment on above: Performed By: #### C DP, BMP, LIVP, MG ####[address] [place] [address] Lab Director: Calin Tapia MD Protein [Mass/Vol] 6.9 g/dL Normal 6.4-8.3 [facility] Comment on above: Performed By: #### C DP, BMP, LIVP, MG ####[address] [place] [address] Lab Director: Calin Taipa MD Magnesiumon 11-11-2023 Magnesium [Mass/Vol] 2.1 mg/dL Normal 1.6-2.6 [facility] Comment on above: Performed By: #### C DP, BMP, LIVP, MG ####[address] [place] [address] Lab Director: Calin Tapia MD CBC with Diffon 11-08-2023 Abs. Basophil 0.05 k/uL Normal 0.00-0.20 [place] Comment on above: Performed By: #### C DP, LIP, CP ####[address] , [place] [address])[phone] Director: Calin Tapia MD Abs.Imm.Granulocyte <0.03 Normal 0.00-0.30 [facility] Comment on above: Performed By: #### C DP, LIP, CP ####[address] , [place] [address])[phone] Director: Calin Tapia MD Abs.Neutrophil (Seg) 4.54 k/uL Normal 1.50-8.10 [facility] Comment on above: Performed By: #### C DP, LIP, CP ####[address] , [place] [address])[phone] Director: Calin Tapia MD Basophils/100 WBC (Bld) 1 % Normal 0-2 [facility] Comment on above: Performed By: #### C DP, LIP, CP ####[address] , [place] [phone] Director: Calin Tapia MD Eosinophils (Bld) [#/Vol] 0.15 10*3/uL Normal 0.00-0.44 [facility] Comment on above: Performed By: #### C DP, LIP, CP ####[address] , [place] [address])[phone] Director: Calin Tapia MD Eosinophils/100 WBC (Bld) 2 % Normal 1-4 [facility] Comment on above: Performed By: #### C RICHARD GAUTAM, CP ####[address] [place] [address] Lab Director: Calin Tapia MD Erythrocyte distribution width (RBC) [Ratio] 11.9 % Normal 11.8-14.4 [facility] Comment on above: Performed By: #### C DAIN LIP, CP ####[address] [place] [address] Lab Director: Calin Tapia MD Hematocrit (Bld) [Volume fraction] 42.0 % Normal 36.3-47.1 [facility] Comment on above: Performed By: #### C RICHARD GAUTAM, CP ####[address] , [facility]83[facility])[phone] Director: Calin Tapia MD Hemoglobin (Bld) [Mass/Vol] 14.8 g/dL Normal 11.9-15.1 [facility] Comment on above: Performed By: #### C RICHARD GAUTAM, CP ####[address] [place] [address] Lab Director: Calin Tapia MD Immature granulocytes/100 WBC (Bld) 0 % Normal 0 [facility] Comment on above: Performed By: #### C DAIN LIP, CP ####[address] [place] [address] Lab Director: Calin Tapia MD Lymphocytes (Bld) [#/Vol] 1.56 10*3/uL Normal 1.10-3.70 [facility] Comment on above: Performed By: #### C DP LIP, CP ####[address] , [place] 1427483 Lab Director: Calin Tapia MD Lymphocytes/100 WBC (Bld) 23 % Low 24-43 [facility] Comment on above: Performed By: #### C DP LIP, CP ####[address] , [place] [address])[phone] Director: Calin Tapia MD MCH (RBC) [Entitic mass] 33.2 pg Normal 25.2-33.5 [facility] Comment on above: Performed By: #### C DP, LIP, CP ####[address] , [place] [phone] Director: Calin Tapia MD MCHC (RBC) [Mass/Vol] 35.2 g/dL High 28.4-34.8 [facility] Comment on above: Performed By: #### C DAIN LIP, CP ####[address] , [place] 9358183 Lab Director: Calin Tapia MD MCV (RBC) [Entitic vol] 94.2 fL Normal 82.6-102.9 [facility] Comment on above: Performed By: #### C RICHARD GAUTAM, CP ####[address] , [place] [address])[phone] Director: Calin Tapia MD Monocytes (Bld) [#/Vol] 0.46 10*3/uL Normal 0.10-1.20 [facility] Comment on above: Performed By: #### C DP LIP, CP ####[address] [place] [address] Lab Director: Calin Tapia MD Monocytes/100 WBC (Bld) 7 % Normal 3-12 [facility] Comment on above: Performed By: #### C DP LIP, CP ####[address] , [place] 8998[address] Lab Director: Calin Tapia MD Neutrophil (Seg) 67 % High 36-65 [facility] Comment on above: Performed By: #### C DP, LIP, CP ####[address] [place] [address] Lab Director: Calin Tapia MD NRBC Automated 0.0 per 100 WBC Normal 0.0 [facility] Comment on above: Performed By: #### C DP, LIP, CP ####[address] , [facility]83 Lab Director: Calin Tapia MD Platelet mean volume (Bld) [Entitic vol] 9.4 fL Normal 8.1-13.5 [facility] Comment on above: Performed By: #### C DP, LIP, CP ####[address] , [facility]83 Lab Director: Calin Tapia MD Platelets (Bld) [#/Vol] 315 10*3/uL Normal 138-453 [facility] Comment on above: Performed By: #### C DP, LIP, CP ####[address] , [place] [phone] Director: Calin Tapia MD RBC (Bld) [#/Vol] 4.46 10*6/uL Normal 3.95-5.11 [facility] Comment on above: Performed By: #### C DP, LIP, CP ####[address] , [facility]83[facility])[phone] Director: Calin Tapia MD WBC (Bld) [#/Vol] 6.8 10*3/uL Normal 3.5-11.3 [facility] Comment on above: Performed By: #### C DP, LIP, CP ####[address] [place] [address] Lab Director: Calin Tapia MD CT ABDOMEN PELVIS W IV CONTR Bradly 11-08-2023 CT ABDOMEN PELVIS W IV CONTRAST Normal [facility] Comp Metabolic Profon 2023 Albumin [Mass/Vol] 4.8 g/dL Normal 3.5-5.2 [facility] Comment on above: Performed By: #### C DP LIP, CP ####[address] , [place] 015[address]83 Lab Director: Calin Tapia MD Albumin/Glob Ratio 1.7 Normal 1.0-2.5 [facility] Comment on above: Performed By: #### C DP, LIP, CP ####[address] , [place] 4493983 Lab Director: Calin Tapia MD Alkaline Phos 53 U/L Normal 35-104 [place] Comment on above: Performed By: #### C DP LIP, CP ####[address] , [place] 755[address]83 Lab Director: Calin Tapia MD ALT [Catalytic activity/Vol] 14 U/L Normal 5-33 [facility] Comment on above: Performed By: #### C DAIN LIP, CP ####[address] [place] [address] Lab Director: Calin Tapia MD Anion gap [Moles/Vol] 12 mmol/L Normal 9-17 [facility] Comment on above: Performed By: #### C DAIN LIP, CP ####[address] [place] [address] Lab Director: Calin Tapia MD AST [Catalytic activity/Vol] 17 U/L Normal <32 [facility] Comment on above: Performed By: #### C DP LIP, CP ####[address] , [place] 4316783 Lab Director: Calin Tapia MD Bilirubin [Mass/Vol] 0.7 mg/dL Normal 0.3-1.2 [facility] Comment on above: Performed By: #### C DP, LIP, CP ####[facility] , [place] 0059783 Lab Director: Calin Tapia MD BUN/CRE Ratio 9 Normal 9-20 [place] Comment on above: Performed By: #### C DAIN LIP, CP ####[facility] , [place] 2994183 Lab Director: Calin Tapia MD Calcium [Mass/Vol] 9.5 mg/dL Normal 8.6-10.4 [facility] Comment on above: Performed By: #### C RICHARD GAUTAM, CP ####[address] , [place] 5528383 Lab Director: Calin Tapia MD Chloride [Moles/Vol] 107 mmol/L Normal 98-107 [facility] Comment on above: Performed By: #### C RICHARD GAUTAM, CP ####[address] , [place] 6073883 Lab Director: Calin Tapia MD CO2 [Moles/Vol] 22 mmol/L Normal 20-31 [facility] Comment on above: Performed By: #### C RICHARD GAUTAM, CP ####[address] , [place] 5730883 Lab Director: Calin Tapia MD Creatinine [Mass/Vol] 0.7 mg/dL Normal 0.5-0.9 [facility] Comment on above: Performed By: #### C RICHARD GAUTAM, CP ####[address] , [place] 5741583 Lab Director: Calin Tapia MD GFR/1.73 sq M.predicted among non-blacks MDRD (S/P/Bld) [Vol rate/Area] mL/min/{1.73_m2} Normal >60 [facility] Comment on above: Result Comment: Thes e results are not intended for use in patients <18 years of age.eGFR results are calculated without a race factor using the 2020 CKD-EPI equation.Careful clinical correlation is recommended, particularly when comparing to results calculated using previous equations.The CKD-EPI equation is less accurate in patients with extremes of muscle mass, extra-renal metabolism of creatine, excessive creatine ingestion, or following therapy that affects renal tubular secretion. Performed By: #### C DP LIP, CP ####[address] [place] [address] Lab Director: Calin Tapia MD Glucose [Mass/Vol] 101 mg/dL High 70-99 [facility] Comment on above: Performed By: #### C DAIN LIP, CP ####[address] , [place] [phone] Director: Calin Tapia MD Potassium [Moles/Vol] 3.7 mmol/L Normal 3.7-5.3 [facility] Comment on above: Performed By: #### C DAIN LIP, CP ####[address] , [place] [phone] Director: Calin Tapia MD Protein [Mass/Vol] 7.6 g/dL Normal 6.4-8.3 [facility] Comment on above: Performed By: #### C DAIN LIP, CP ####[address] , [place] [phone] Director: Calin Tapia MD Sodium [Moles/Vol] 141 mmol/L Normal 135-144 [facility] Comment on above: Performed By: #### C DP LIP, CP ####[address] , [place] [phone] Director: Calin Tapia MD Urea nitrogen [Mass/Vol] 6 mg/dL Normal 6-20 [facility] Comment on above: Performed By: #### C DP LIP, CP ####[address] , [place] [phone] Director: Calin Tapia MD HCG, ,Urineon 11-07 Beta HCG ( test) Ql (U) Negative Normal NEG [facility] Comment on above: Result Comment: Spec imens with hCG levels near the threshold of the test (25 mIU/mL) may give a negative or indeterminate result. In such cases, another test should be performed with a new specimen in 48-72 hours. If early is suspected clinically in this setting, correlation with quantitative serum b-hCG level is suggested.[facility] has confirmed the use of plasma for this test. This has not been cleared or approved by the U.S. Food and Drug Administration. The FDA has determined that such clearance is not necessary. Performed By: #### U HCG, UAMIC ####[address] [place] [address] Lab Director: Calin Tapia MD Lactic Acidon 3 Lactate [Moles/Vol] 1.2 mmol/L Normal 0.5-2.2 [facility] Comment on above: Performed By: #### L ACTIC ####[address] [place], [place] 9708[address] Lab Director: Calin Tapia MD Lipaseon 3 Lipase [Catalytic activity/Vol] 20 U/L Normal 13-60 [facility] Comment on above: Performed By: #### C DP, LIP, CP ####[address] [place] [phone] Lab Director: Calin Tapia MD Urinalysis w/ Microon 2 Bacteria TRACE Abnormal NONE [facility] Comment on above: Performed By: #### U HCG, UAMIC ####[address] [place] [address] Lab Director: Calin Tapia MD Bilirubin, SemiQt,Ur Negative Normal NEG [facility] Comment on above: Performed By: #### U HCG, UAMIC ####[address] 3695283 Lab Director: Calin Tapia MD Blood, Urine Negative Normal NEG [facility] Comment on above: Performed By: #### U HCG, UAMIC ####[address] [place] [address] Lab Director: Calin Tapia MD Clarity (U) Clear Normal CLEAR [facility] Comment on above: Performed By: #### U HCG, UAMIC ####[address] , [place] [phone] lab Director: Calin Tapia MD Color (U) Yellow Normal YEL [facility] Comment on above: Performed By: #### U HCG, UAMIC ####[address] [place] [address] lab Director: Calin Tapia MD Epithelial cells LM Ql (Urine sed) 2 TO 5 Normal 0-25 [facility] Comment on above: Performed By: #### U HCG, UAMIC ####[address] , [place] 0049583 Lab Director: Calin Tapia MD Glucose Ql (U) Negative Normal NEG [facility] Comment on above: Performed By: #### U HCG, UAMIC ####[address] [place] [address] Lab Director: Calin Tapia MD Ketones Ql (U) Negative Normal NEG [facility] Comment on above: Performed By: #### U HCG, UAMIC ####[address] [place] [address] Lab Director: Cailn Tapia MD Leukocyte esterase Test strip Ql (U) Negative Normal NEG [facility] Comment on above: Performed By: #### U HCG, UAMIC ####[address] , [place] [id number] Lab Director: Calin Tapia MD Nitrite,Ur Negative Normal NEG [facility] Comment on above: Performed By: #### U HCG, UAMIC ####[address] , [place] 9381083 lab Director: Calin Tapia MD PH,Ur 6.5 Normal 5.0-9.0 [facility] Comment on above: Performed By: #### U HCG, UAMIC ####[address] [place] [address] lab Director: Calin Tapia MD Protein Ql (U) Negative Normal NEG [facility] Comment on above: Performed By: #### U HCG, UAMIC ####[address] , [place] [id number] lab Director: Calin Tapia MD Spec. [place],Ur <1.005 Low 1.010-1.020 [facility] Comment on above: Performed By: #### U HCG, UAMIC ####[address] , [place] [id number] lab Director: Calin Tpaia MD Urine RBC's None Normal 0-2 [facility] Comment on above: Performed By: #### U HCG, UAMIC ####[address] [place] [address] lab Director: Calin Tapia MD Urine WBC's 0 TO 2 Normal 0-5 [facility] Comment on above: Performed By: #### U HCG, UAMIC ####[address] [place] [address] lab Director: Calin Tapia MD Urobilinogen,Ur Normal Normal 0.0-1.0 [facility] Comment on above: Performed By: #### U HCG, UAMIC ####[address] , [place] [phone] lab Director: Calin Tapia MD CBC with Diffon 10-21-2023 Abs. Basophil 0.08 k/uL Normal 0.00-0.20 [place] Comment on above: Performed By: #### C DP, CP, LIP ####[address] , [place] [id number] Lab Director: Calin Tapia MD Abs.Imm.Granulocyte 0.03 k/uL Normal 0.00-0.30 [facility] Comment on above: Performed By: #### C DP, CP, LIP ####[address] , [place] 7[address]83 Lab Director: Calin Tapia MD Abs.Neutrophil (Seg) 5.70 k/uL Normal 1.50-8.10 [facility] Comment on above: Performed By: #### C DP, CP, LIP ####[address] , [place] [address])[phone] Director: Calin Tapia MD Basophils/100 WBC (Bld) 1 % Normal 0-2 [facility] Comment on above: Performed By: #### C DP, CP, LIP ####[address] [place] [address] Lab Director: Calin Tapia MD Eosinophils (Bld) [#/Vol] 0.22 10*3/uL Normal 0.00-0.44 [facility] Comment on above: Performed By: #### C DP, CP, LIP ####[address] [place] [address] Lab Director: Calin Tapia MD Eosinophils/100 WBC (Bld) 3 % Normal 1-4 [facility] Comment on above: Performed By: #### C DP, CP, LIP ####[address] , [place] 27[address]83 Lab Director: Calin Tapia MD Erythrocyte distribution width (RBC) [Ratio] 11.9 % Normal 11.8-14.4 [facility] Comment on above: Performed By: #### C CHRISTINE GAUTAM, LIP ####[address] , [facility]83[facility])[phone] Director: Calin Tapia MD Hematocrit (Bld) [Volume fraction] 40.4 % Normal 36.3-47.1 [facility] Comment on above: Performed By: #### C DAIN CP, LIP ####[address] , [facility]83[facility])[phone] Director: Calin Tapia MD Hemoglobin (Bld) [Mass/Vol] 13.9 g/dL Normal 11.9-15.1 [facility] Comment on above: Performed By: #### C DAIN CP, LIP ####[address] , [place] [address])[phone] Director: Calin Tapia MD Immature granulocytes/100 WBC (Bld) 0 % Normal 0 [facility] Comment on above: Performed By: #### C CHRISTINE GAUTAM, LIP ####[address] , [facility]83[facility])[phone] Director: Calin Tapia MD Lymphocytes (Bld) [#/Vol] 2.10 10*3/uL Normal 1.10-3.70 [facility] Comment on above: Performed By: #### C DAIN CP, LIP ####[address] , [place] [address])[phone] Director: Calin Tapia MD Lymphocytes/100 WBC (Bld) 25 % Normal 24-43 [facility] Comment on above: Performed By: #### C DP CP, LIP ####[address] [place] [address] Lab Director: Calin Tapia MD MCH (RBC) [Entitic mass] 33.2 pg Normal 25.2-33.5 [facility] Comment on above: Performed By: #### C DP, CP, LIP ####[address] [place] [address] Lab Director: Calin Tapia MD MCHC (RBC) [Mass/Vol] 34.4 g/dL Normal 28.4-34.8 [facility] Comment on above: Performed By: #### C DP, CP, LIP ####[address] [place] [address] Lab Director: Calin Tapia MD MCV (RBC) [Entitic vol] 96.4 fL Normal 82.6-102.9 [facility] Comment on above: Performed By: #### C DP, CP, LIP ####[address] [place] [address] Lab Director: Calin Tapia MD Monocytes (Bld) [#/Vol] 0.39 10*3/uL Normal 0.10-1.20 [facility] Comment on above: Performed By: #### C DP, CP, LIP ####[address] [place] [address] Lab Director: Calin Tapia MD Monocytes/100 WBC (Bld) 5 % Normal 3-12 [facility] Comment on above: Performed By: #### C DP, CP, LIP ####[address] [place] [address] Lab Director: Calin Tapia MD Neutrophil (Seg) 66 % High 36-65 [facility] Comment on above: Performed By: #### C DP, CP, LIP ####[address] , [place] [phone] Lab Director: Calin Tapia MD NRBC Automated 0.0 per 100 WBC Normal 0.0 [facility] Comment on above: Performed By: #### C DP, CP, LIP ####[address] [place] [address] Lab Director: Calin Tapia MD Platelet mean volume (Bld) [Entitic vol] 9.3 fL Normal 8.1-13.5 [facility] Comment on above: Performed By: #### C DP, CP, LIP ####[address] [place] [address] Lab Director: Calin Tapia MD Platelets (Bld) [#/Vol] 273 10*3/uL Normal 138-453 [facility] Comment on above: Performed By: #### C DP, CP, LIP ####[address] [place] [address] Lab Director: Calin Tapia MD RBC (Bld) [#/Vol] 4.19 10*6/uL Normal 3.95-5.11 [facility] Comment on above: Performed By: #### C DP, CP, LIP ####[address] [place] [address] Lab Director: Calin Tapia MD WBC (Bld) [#/Vol] 8.5 10*3/uL Normal 3.5-11.3 [facility] Comment on above: Performed By: #### C DP, CP, LIP ####[address] [place] [address] Lab Director: Calin Tapia MD CT ABDOMEN PELVIS W IV CONTR Bradly 10-21-2023 CT ABDOMEN PELVIS W IV CONTRAST Normal [facility] Comp Metabolic Profon 2023 Albumin [Mass/Vol] 4.7 g/dL Normal 3.5-5.2 [facility] Comment on above: Performed By: #### C DP, CP, LIP ####[address] , [place] 0889683 Lab Director: Calin Tapia MD Albumin/Glob Ratio 1.5 Normal 1.0-2.5 [facility] Comment on above: Performed By: #### C DP, CP, LIP ####[address] , [place] 8382683 Lab Director: Calin Tapia MD Alkaline Phos 58 U/L Normal 35-104 [place] Comment on above: Performed By: #### C DP, CP, LIP ####[address] , [place] 575[address]83 lab Director: Calin Tapia MD ALT [Catalytic activity/Vol] 25 U/L Normal 5-33 [facility] Comment on above: Performed By: #### C DP, CP, LIP ####[address] , [place] 5558483 lab Director: Calin Tapia MD Anion gap [Moles/Vol] 10 mmol/L Normal 9-17 [facility] Comment on above: Performed By: #### C DP, CP, LIP ####[address] , [place] 0200683 Lab Director: Calin Tapia MD AST [Catalytic activity/Vol] 23 U/L Normal <32 [facility] Comment on above: Performed By: #### C DP, CP, LIP ####[address] , [place] 4645283 Lab Director: Calin Tapia MD Bilirubin [Mass/Vol] 0.5 mg/dL Normal 0.3-1.2 [facility] Comment on above: Performed By: #### C DP, CP, LIP ####[address] , [place] 2052683 Lab Director: Calin Tapia MD BUN/CRE Ratio 15 Normal 9-20 [place] Comment on above: Performed By: #### C DP, CP, LIP ####[address] , [place] 7140583 Lab Director: Calin Tapia MD Calcium [Mass/Vol] 8.8 mg/dL Normal 8.6-10.4 [facility] Comment on above: Performed By: #### C DP CP, LIP ####[address] , [place] 432[address]83 Lab Director: Calin Tapia MD Chloride [Moles/Vol] 103 mmol/L Normal 98-107 [facility] Comment on above: Performed By: #### C DP CP, LIP ####[address] , [place] 7242383 Lab Director: Calin Tapia MD CO2 [Moles/Vol] 26 mmol/L Normal 20-31 [facility] Comment on above: Performed By: #### C DAIN CP, LIP ####[address] , [place] 7677483 Lab Director: Calin Tapia MD Creatinine [Mass/Vol] 0.6 mg/dL Normal 0.5-0.9 [facility] Comment on above: Performed By: #### C DAIN CP, LIP ####[address] , [place] 1750383 Lab Director: Calin Tapia MD GFR/1.73 sq M.predicted among non-blacks MDRD (S/P/Bld) [Vol rate/Area] mL/min/{1.73_m2} Normal >60 [facility] Comment on above: Result Comment: Thes e results are not intended for use in patients <18 years of age.eGFR results are calculated without a race factor using the 2020 CKD-EPI equation.Careful clinical correlation is recommended, particularly when comparing to results calculated using previous equations.The CKD-EPI equation is less accurate in patients with extremes of muscle mass, extra-renal metabolism of creatine, excessive creatine ingestion, or following therapy that affects renal tubular secretion. Performed By: #### C DP, CP, LIP ####[facility] [place] [address] Lab Director: Calin Tapia MD Glucose [Mass/Vol] 83 mg/dL Normal 70-99 [facility] Comment on above: Performed By: #### C DP, CP, LIP ####[address] [place] [address] Lab Director: Calin Tapia MD Potassium [Moles/Vol] 3.8 mmol/L Normal 3.7-5.3 [facility] Comment on above: Performed By: #### C DP, CP, LIP ####[address] [place] [address] Lab Director: Calin Tapia MD Protein [Mass/Vol] 7.8 g/dL Normal 6.4-8.3 [facility] Comment on above: Performed By: #### C DP, CP, LIP ####[address] , [place] [phone] Director: Calin Tapia MD Sodium [Moles/Vol] 139 mmol/L Normal 135-144 [facility] Comment on above: Performed By: #### C DP, CP, LIP ####[address] [place] [address] Lab Director: Calin Tapia MD Urea nitrogen [Mass/Vol] 9 mg/dL Normal 6-20 [facility] Comment on above: Performed By: #### C DP, CP, LIP ####[address] [place] [address] Lab Director: Calin Tapia MD HCG, ,Urineon 10-20 Beta HCG ( test) Ql (U) Negative Normal NEG [facility] Comment on above: Result Comment: Spec imens with hCG levels near the threshold of the test (25 mIU/mL) may give a negative or indeterminate result. In such cases, another test should be performed with a new specimen in 48-72 hours. If early is suspected clinically in this setting, correlation with quantitative serum b-hCG level is suggested.[facility] has confirmed the use of plasma for this test. This has not been cleared or approved by the U.S. Food and Drug Administration. The FDA has determined that such clearance is not necessary. Performed By: #### U MICAO, UHCG, UAX ####[facility] [place] [address] Lab Director: Calin Tapia MD Lipaseon 10-21-2023 Lipase [Catalytic activity/Vol] 21 U/L Normal 13-60 [facility] Comment on above: Performed By: #### C DP, CP, LIP ####[address] , [place] 056[address]83 lab Director: Calin Tapia MD UA w/Reflex Cultureon 2023 Bilirubin, SemiQt,Ur Negative Normal NEG [facility] Comment on above: Performed By: #### U MICAO, UHCG, UAX ####[address] , [place] 5671683 lab Director: Calin Tapia MD Blood, Urine Negative Normal NEG [facility] Comment on above: Performed By: #### U MICAO, UHCG, UAX ####[address] [place] [address] Lab Director: Calin Tapia MD Clarity (U) Clear Normal CLEAR [facility] Comment on above: Performed By: #### U MICAO, UHCG, UAX ####[address] [place] [address] lab Director: Calin Tapia MD Color (U) Yellow Normal YEL [facility] Comment on above: Performed By: #### U MICAO, UHCG, UAX ####[address] , [place] 997[address]83 lab Director: Calin Tapia MD Glucose Ql (U) Negative Normal NEG [facility] in Hospital Comment on above: Performed By: #### U MICAO, UHCG, UAX ####[address] , [place] 1927[address] lab Director: Calin Tapia MD Ketones Ql (U) Negative Normal NEG [facility] Comment on above: Performed By: #### U MICAO, UHCG, UAX ####[address] [place] [address] lab Director: Calin Tapia MD Leukocyte esterase Test strip Ql (U) Negative Normal NEG [facility] Comment on above: Performed By: #### U MICAO, UHCG, UAX ####[address] , [place] 0872783 lab Director: Calin Tapia MD Nitrite,Ur Negative Normal [facility] Comment on above: Performed By: #### U MICAO, UHCG, UAX ####[address] [place] [address] lab Director: Calin Tapia MD PH,Ur 6.5 Normal 5.0-9.0 [facility] Comment on above: Performed By: #### U MICAO, UHCG, UAX ####[address] [place] [address] lab Director: Calin Tapia MD Protein Ql (U) Negative Normal NEG [facility] Comment on above: Performed By: #### U MICAO, UHCG, UAX ####[address] , [place] 9543[address] lab Director: Calin Tapia MD Spec. [place],Ur 1.020 Normal 1.010-1.020 [facility] Comment on above: Performed By: #### U MICAO, UHCG, UAX ####[facility] [place] , [place] 56[address] lab Director: Calin Tapia MD Urobilinogen,Ur Normal Normal 0.0-1.0 [facility] Comment on above: Performed By: #### U MICAO, UHCG, UAX ####[facility] , [place] 5802583 lab Director: Calin Tapia MD Urinalysis,Microon 4 Bacteria TRACE Abnormal NONE [facility] Comment on above: Performed By: #### U MICAO, UHCG, UAX ####[address] , [place] 1717683 lab Director: Calin Tapia MD Epithelial cells LM Ql (Urine sed) 0 TO 2 Normal 0-25 [facility] Comment on above: Performed By: #### U MICAO, UHCG, UAX ####[address] , [place] 5979283 lab Director: Calin Tapia MD Mucus Strands TRACE Abnormal NONE [place] Comment on above: Performed By: #### U MICAO, UHCG, UAX ####[address] , [place] 0096883 lab Director: Calin Tapia MD Urine RBC's None Normal 0-2 [facility] Comment on above: Performed By: #### U MICAO, UHCG, UAX ####[address] , [place] 2829683 lab Director: Calin Tapia MD Urine WBC's 0 TO 2 Normal 0-5 [facility] Comment on above: Performed By: #### U MICAO, UHCG, UAX ####[address] , [place] 2625[address] lab Director: Calin Tapia MD No Panel Informationon 05-23 No dictation [facility] Work Phone: [facility] Work Phone: Amylaseon 01-14-2022 Amylase [Catalytic activity/Vol] 43 U/L 28 - 100 U/L [facility] Basic Metabolic Panel w/ Ref riddhi to MGon 01-14-2022 Anion gap [Moles/Vol] 8 mmol/L Low 9 - 17 mmol/L [facility] Calcium [Mass/Vol] 9.1 mg/dL 8.6 - 10. 4 mg/dL [facility] Chloride [Moles/Vol] 109 mmol/L High 98 - 10 7 mmol/L [facility] CO2 [Moles/Vol] 22 mmol/L 20 - 31 mmol/L [facility] Creatinine [Mass/Vol] 0.61 mg/dL 0.50 - 0.90 mg/dL [facility] GFR >60 >60 mL/min [facility] GFR Non- >60 >60 mL/min [facility] Glucose [Mass/Vol] 97 mg/dL 70 - 99 mg/dL [facility] Interpretation and review of laboratory results Abnormal [facility] Potassium [Moles/Vol] 4.2 mmol/L 3.7 - 5.3 mmol/L [facility] Sodium [Moles/Vol] 139 mmol/L 135 - 144 mmol/L [facility] Urea nitrogen (BldV) [Mass/Vol] 9 mg/dL 6 - 20 mg/dL [facility] Urea nitrogen/Creatinine (Bld) [Mass ratio] 15 [facility] CBC with Auto Differentialon 01-14-2022 Absolute Eos # 0.06 [facility] Absolute Immature Granulocyte <0.03 [facility] Absolute Lymph # 1.39 [facility] Absolute [place] # 0.42 [facility] Basophils (Bld) [#/Vol] 0.05 10*3/uL [facility] Basophils/100 WBC (Bld) 1 % 0 - 2 % [facility] Eosinophils/100 WBC (Bld) 1 % 1 - 4 % [facility] Hematocrit (Bld) [Volume fraction] 35.6 % Low 36.3 - 47.1 % [facility] Hemoglobin (Bld) [Mass/Vol] 12.1 g/dL 11.9 - 15.1 g/dL [facility] Immature granulocytes/100 WBC (Bld) 0 % 0 [facility] Interpretation and review of laboratory results Abnormal [facility] Lymphocytes/100 WBC (Bld) 19 % Low 24 - 43 % [facility] MCH (RBC) [Entitic mass] 33.0 pg 25.2 - 33.5 pg [facility] MCHC (RBC) [Mass/Vol] 34.0 g/dL 28.4 - 34.8 g/dL [facility] MCV (RBC) [Entitic vol] 97.0 fL 82.6 - 102.9 fL [facility] Monocytes/100 WBC (Bld) 6 % 3 - 12 % [facility] NRBC Automated 0.0 0.0 per 100 WBC [facility] Platelet distribution width (Bld) [Ratio] 11.9 % 11.8 - 14.4 % [facility] Platelet mean volume (Bld) [Entitic vol] 9.6 fL 8.1 - 13.5 fL [facility] Platelets (Bld) [#/Vol] 214 10*3/uL [facility] RBC (Bld) [#/Vol] 3.67 10*6/uL Low 3.95 - 5.1 1 m/uL [facility] Segmented neutrophils/100 WBC (Bld) 73 % High 36 - 65 % [facility] Segs Absolute 5.34 [facility] WBC (Bld) [#/Vol] 7.3 10*3/uL [facility] HCG Qualitative, Serumon hCG Qual Negative NEGATIVE [facility] Comment on above: Specimens with hCG l evels near the threshold of the test (25 mIU/mL) may give a negative or indeterminate result. In such cases, another test should be performed with a new specimen in 48-72 hours. If early is suspected clinically in this setting, correlation with quantitative serum b-hCG level is suggested. [employer] has confirmed the use of plasma for this test. This has not been cleared or approved by the U.S. Food and Drug Administration. The FDA has determined that such clearance is not necessary. [facility] Hepatic Function Panelon Albumin [Mass/Vol] 4.8 g/dL 3.5 - 5.2 g/dL [facility] [employer] Albumin/Globulin [Mass ratio] 2.0 {ratio} [facility] [employer] [place] ALP (Bld) [Catalytic activity/Vol] 49 U/L 35 - 104 U/L [facility] ALT [Catalytic activity/Vol] 12 U/L 5 - 33 U/L [facility] [employer] AST [Catalytic activity/Vol] 13 U/L <32 [facility] [employer] [place] Bilirubin [Mass/Vol] 0.44 mg/dL 0.3 - 1 .2 mg/dL [facility] [employer] [place] Bilirubin, Indirect Can not be calculated 0.00 - 1.00 mg/dL [facility] [employer] [place] Bilirubin.indirect [Mass/Vol] mg/dL <0.31 mg/dL [facility] Free PSA/Total PSA [Mass fraction] 7.2 g/dL 6.4 - 8.3 g/dL [facility] [employer] [place] Laboratory - Chemistry and C hemistry - challengeon 01-14-2022 GFR/1.73 sq M.predicted MDRD (S/P/Bld) [Vol rate/Area] [facility] [employer] Comment on above: Average GFR for 20-2 9 years old: 116 mL/min/1.73sq m Chronic Kidney Disease: <60 mL/min/1.73sq m Kidney failure: <15 mL/min/1.73sq m eGFR calculated using average adult body mass. Additional eGFR calculator available at: http://www.[employer].com/multiple_crcl_2012.htm Stage 1: Some kidney damage normal GFR Stage 2: Mild kidney damage GFR 60-89 Stage 3: Moderate kidney damage GFR 30-59 Stage 4: Severe kidney damage GFR 15-29 Stage 5: Severe kidney damage GFR <15 ESRD - chronic treatment by dialysis or transplant Lipaseon 01-14-2022 Lipase [Catalytic activity/Vol] 15 U/L 13 - 60 U/L [facility] No Panel Informationon 01-14 [facility] Urinalysis with Microscopico n 01-14-2022 - [facility] Bacteria, UA TRACE Abnormal None [facility] Bilirubin Urine Negative NEGATIVE [facility] Color, UA Yellow Yellow [facility] Epithelial Cells UA 5 TO 10 [facility] Glucose, Ur Negative NEGATIVE [facility] Interpretation and review of laboratory results Abnormal [facility] Ketones Ql (U) Negative NEGATIVE [facility] Leukocyte esterase Test strip Ql (U) Negative NEGATIVE [facility] Nitrite, Urine Negative NEGATIVE [facility] pH, UA 7.0 [facility] Protein, UA Negative NEGATIVE [facility] RBC, UA 0 TO 2 [facility] Specific [place], UA 1.010 [facility] Turbidity UA Clear Clear [facility] Urine Hgb Negative NEGATIVE [facility] Urobilinogen, Urine Normal Normal [facility] WBC, UA 0 TO 2 [facility] US GALLBLADDER RUQon 020 Overall, unremarkabl e right upper quadrant abdominal ultrasound. [place]- [place], [place] EXAMINATION: RIGHT UPPER QUADRANT ULTRASOUND 10/11/2019 10:03 [...] aorta is not visualized. IVC appears patent. [place], [place] Richard, [facility] Incoming Radiant Results From [employer] - 10/11/2019 10:33 AM EDT EXAMINATION: RIGHT [...] Overall, unremarkable right upper quadrant abdominal ultrasound. [place], [place] Operative Reporton 04-18- 9 Operative Report Patient: Anna Moulton Age: [...] Jolly Garsia DO 04/18/19 13:23 EDT Normal [facility] Surgical Pathology Reporton 04-18-2019 Surgical Pathology Report [...] (Electronically signed by) Verified: 04/19/19 12:39 Normal [facility] Comment on above: Performed By: #### S AL #### [facility] (DEFAULT) [address] [place] [address] HIV-1,2 Combo Ag/Ab, Reflexi ve Panelon 09-11-2018 HIV 1,2 Combo Antigen/Antibody Negative Normal Negative [facility] Comment on above: Order Comment: CALL doctor [id number] tel. [phone], fax results to [phone] Result Comment: The specimen was non-reactive for [...] Cellular [employer]Based Products (HCT/P). Performed by [employer], [address] [place] [id number] [email or web address], Jossue Valdez MD - Lab. Director Hepatitis Acute Panelon Hepatitis Profile Interp see below [facility] Comment on above: Order Comment: CALL doctor [id number] tel. [phone], fax results to [phone] Result Comment: The acute hepatitis panel is negative. There is no evidence of acute hepatitis A, B, C. Hepatitis A Antibody (IgM) Interp Non-reactive [facility] Comment on above: Order Comment: CALL doctor [id number] tel. [phone], fax results to [phone] Hepatitis B Core Ab IgM Interp Non-reactive [facility] Comment on above: Order Comment: CALL doctor [id number] tel. [phone], fax results to [phone] Hepatitis B Surface Ag Interp Non-reactive Normal [facility] Comment on above: Order Comment: CALL doctor [id number] tel. [phone], fax results to [phone] Hepatitis C Antibody Interp Non-reactive Normal [facility] Comment on above: Order Comment: CALL doctor [id number] tel. [phone], fax results to [phone] Liver Panelon 09-09-2018 Albumin [Mass/Vol] 3.8 g/dL Normal 3.5-4.6 [facility] Comment on above: Order Comment: CALL doctor [id number] tel. [phone], fax results to [phone] Result Comment: Effe ctive: 09/09/2018 New reference range for this analyte has been established. ALP [Catalytic activity/Vol] 54 U/L Normal 40-130 [facility] Comment on above: Order Comment: CALL doctor [id number] tel. [phone], fax results to [phone] ALT [Catalytic activity/Vol] 7 U/L Normal 0-33 [facility] Comment on above: Order Comment: CALL doctor [id number] tel. [phone], fax results to [phone] AST [Catalytic activity/Vol] 9 U/L Normal 0-35 [facility] Comment on above: Order Comment: CALL doctor [id number] tel. [phone], fax results to [phone] Bilirubin [Mass/Vol] mg/dL Normal 0.2-0.7 [facility] Comment on above: Order Comment: CALL doctor [id number] tel. [phone], fax results to [phone] Result Comment: Effe ctive: 09/09/2018 New reference range for this analyte has been established. Bilirubin Indirect see below Normal 0.0-0.6 [facility] Comment on above: Order Comment: CALL doctor [id number] tel. [phone], fax results to [phone] Result Comment: Nena rect Bilirubin cannot be calculated since Total Bilirubin and/or Direct Bilirubin is below measurable range. Bilirubin.direct [Mass/Vol] mg/dL Normal 0.0-0.4 [facility] Comment on above: Order Comment: CALL doctor [id number] tel. [phone], fax results to [phone] Result Comment: Effe ctive: 09/09/2018 New reference range for this analyte has been established. Protein [Mass/Vol] 6.6 g/dL Normal 6.3-8.0 [facility] Comment on above: Order Comment: CALL doctor [id number] tel. [phone], fax results to [phone] Result Comment: Effe ctive: 09/09/2018 New reference range for this analyte has been established. Vital Signs Date Time Vital Sign Value Performing Clinician Kip white 07-10-2024 20:19-0500 Body height 154.9 cm Tom Perkins MD Work Phone: [facility] [employer] 07-10-2024 20:19-0500 Body mass index (BMI) [Ratio] 22.67 kg/m2 [facility] Perkins [facility] [employer] 07-10-2024 20:19-0500 Body temperature 98.1 [degF] Tom Perkins MD Work Phone: [facility] [employer] 07-10-2024 20:19-0500 Body weight 54.43 kg Tom Perkins MD Work Phone: [facility] [employer] 07-10-2024 20:19-0500 Diastolic blood pressure 80 mm[Hg] [facility] Perkins [facility] [employer] 07-10-2024 20:19-0500 Heart rate 84 /min Tom Perkins MD Work Phone: [facility] [employer] 07-10-2024 20:19-0500 Respiratory rate 16 /min Tom Perkins MD Work Phone: [facility] [employer] 07-10-2024 20:19-0500 SaO2% (BldA) [Mass fraction] 98 % Tom Perkins [facility] [employer] 07-10-2024 20:19-0500 Systolic blood pressure 121 mm[Hg] Tom Perkins MD Work Phone: [facility] [employer] 06-15-2024 16:54-0500 Body height 154.9 cm Tom Perkins MD Work Phone: [facility] [employer] 06-15-2024 16:54-0500 Body mass index (BMI) [Ratio] 20.78 kg/m2 Tom Perkins MD [facility] [employer] 06-15-2024 16:54-0500 Body temperature 98.29 [degF] Tom Perkins MD Work Phone: [facility] [employer] 06-15-2024 16:54-0500 Body weight 49.9 kg Tom Perkins MD Work Phone: [facility] [employer] 06-15-2024 16:54-0500 Diastolic blood pressure 61 mm[Hg] Tom Perkins MD Work Phone: [facility] [employer] 06-15-2024 16:54-0500 Heart rate 73 /min Tom Perkins MD Work Phone: [facility] [employer] 06-15-2024 16:54-0500 Respiratory rate 16 /min Tom Perkins MD Work Phone: [facility] [employer] 06-15-2024 16:54-0500 SaO2% (BldA) [Mass fraction] 100 % Tom Perkins MD Work Phone: [facility] [employer] 06-15-2024 16:54-0500 Systolic blood pressure 109 mm[Hg] Tom Perkins MD Work Phone: [facility] [employer] 06-10-2024 09:35-0500 Body height 154.9 cm Ashanti Quiñonez MD Work Phone: [facility] [employer] [facility] 06-10-2024 09:35-0500 Body mass index (BMI) [Ratio] 20.22 kg/m2 Ashanti Quiñonez MD Work Phone: [employer] 06-10-2024 09:35-0500 Body weight 48.53 kg Ash[facility] 06-10-2024 09:35-0500 Diastolic blood pressure 80 mm[Hg] Ashanti Qu[facility]ñonez MD [facility] Phone: [facility] 06-10-2024 09:35-0500 Heart rate 70 /min Ashanti Quiñonez MD Work Phone: [facility] 06-10-2024 09:35-0500 SaO2% (BldA) [Mass fraction] 100 % Ashanti Quiñonez MD Work Phone: [facility] 06-10-2024 09:35-0500 Systolic blood pressure 130 mm[Hg] Ashanti Quiñonez MD Work Phone: [facility] 06-08-2024 00:51-0500 Body height 154.9 cm Siri Barrera DO Work Phone: [employer] 06-08-2024 00:51-0500 Body mass index (BMI) [Ratio] 20.78 kg/m2 Siri Barrera DO Work Phone: [facility] [employer] 06-08-2024 00:51-0500 Body weight 49.9 kg Siri Barrera DO Work Phone: [employer] 06-08-2024 00:51-0500 Diastolic blood pressure 85 mm[Hg] Siri Barrera DO Work Phone: [facility] [employer] 06-08-2024 00:51-0500 Heart rate 61 /min Siri Barrera DO Work Phone: [facility] [employer] 06-08-2024 00:51-0500 Respiratory rate 18 /min Siri Barrera DO Work Phone: [employer] 06-08-2024 00:51-0500 SaO2% (BldA) [Mass fraction] 100 % Siri Barrera DO Work Phone: [facility] [employer] 06-08-2024 00:51-0500 Systolic blood pressure 150 mm[Hg] Siri Barrera DO Work Phone: [facility] 05-31-2024 13:52-0400 Body height 50.2 cm BULX PA-C Work Phone: [employer] 05-31-2024 13:52-0400 Body mass index (BMI) [Ratio] 194.03 kg/m2 Coyn [employer] PA-C Work Phone: [employer] 05-31-2024 13:52-0400 Body weight 48.9 kg [employer] PA-C [facility] 05-31-2024 13:52-0400 Diastolic blood pressure 63 mm[Hg] BULX PA-C Work Phone: [employer] 05-31-2024 13:52-0400 Systolic blood pressure 123 mm[Hg] BULX PA-C [facility] 05-28-2024 22:40-0400 Body height 154.9 cm Linn Pozo DO Work Phone: [facility] [employer] 05-28-2024 22:40-0400 Body mass index (BMI) [Ratio] 20.78 kg/m2 Linn Pozo DO Work Phone: [facility] [employer] 05-28-2024 22:40-0400 Body weight 49.9 kg Linn Pozo DO Work Phone: [facility] [employer] 05-28-2024 22:40-0400 Diastolic blood pressure 71 mm[Hg] Linn Pozo DO Work Phone: [facility] 05-28-2024 22:40-0400 Heart rate 71 /min Linn Pozo DO Work Phone: [facility] 05-28-2024 22:40-0400 Respiratory rate 18 /min Linn Pozo DO Work Phone: [facility] 05-28-2024 22:40-0400 SaO2% (BldA) [Mass fraction] 98 % Linn Pozo DO Work Phone: [facility] 05-28-2024 22:40-0400 Systolic blood pressure 115 mm[Hg] Linn Pozo DO Work Phone: [facility] 05-17-2024 13:09-0400 Body weight 50.17 kg Tete Hoang MD Work Phone: [facility] 05-17-2024 13:09-0400 Diastolic blood pressure 69 mm[Hg] Tete Hoang MD Work Phone: [facility] 05-17-2024 13:09-0400 Heart rate 77 /min Tete Hoang MD Work Phone: [facility] 05-17-2024 13:09-0400 Systolic blood pressure 121 mm[Hg] Tete Hoang MD Work Phone: [facility] 05-07-2024 13:35-0400 Diastolic blood pressure 71 mm[Hg] Aiden Salcedo MD Work Phone: [facility] 05-07-2024 13:35-0400 Heart rate 74 /min Aiden Salcedo MD Work Phone: [facility] 05-07-2024 13:35-0400 Respiratory rate 14 /min Aiden Salcedo MD Work Phone: [facility] 05-07-2024 13:35-0400 SaO2% (BldA) [Mass fraction] 100 % Aiden Salcedo MD Work Phone: [facility] 05-07-2024 13:35-0400 Systolic blood pressure 128 mm[Hg] Aiden Salcedo MD Work Phone: [facility] 05-07-2024 11:23-0400 Body temperature 99.61 [degF] Aiden Salcedo MD Work Phone: [facility] 05-03-2024 21:56-0400 Diastolic blood pressure 75 mm[Hg] Siri Barrera DO Work Phone: [facility] 05-03-2024 21:56-0400 Systolic blood pressure 124 mm[Hg] Siri Barrera DO Work Phone: [facility] 05-03-2024 21:53-0400 Body mass index (BMI) [Ratio] 21.35 kg/m2 Siri Barrera DO Work Phone: [facility] 05-03-2024 21:53-0400 Body temperature 97.7 [degF] Siri Barrera DO Work Phone: [facility] 05-03-2024 21:53-0400 Body weight 51.26 kg Siri Barrera DO Work Phone: [facility] 05-03-2024 21:53-0400 Heart rate 85 /min Siri Barrera DO Work Phone: [facility] [employer] 05-03-2024 21:53-0400 Respiratory rate 16 /min Siri Barrera DO Work Phone: [facility] 05-03-2024 21:53-0400 SaO2% (BldA) [Mass fraction] 100 % Siri Barrera DO Work Phone: [facility] [employer] 05-02-2024 02:19-0400 Heart rate 61 /min Linn Pozo DO Work Phone: [facility] [employer] 05-02-2024 02:19-0400 Respiratory rate 16 /min Linn Pozo DO Work Phone: [facility] [employer] 05-02-2024 02:19-0400 SaO2% (BldA) [Mass fraction] 98 % Linn Pozo DO Work Phone: [facility] [employer] 05-02-2024 01:19-0400 Diastolic blood pressure 41 mm[Hg] Linn Pozo DO Work Phone: [facility] [employer] 05-02-2024 01:19-0400 Systolic blood pressure 103 mm[Hg] Linn Pozo DO Work Phone: [facility] [employer] 05-01-2024 22:00-0400 Body temperature 97.81 [degF] Linn Pozo DO Work Phone: [facility] [employer] 04-24-2024 22:54-0400 Body temperature 97.59 [degF] Siri Barrera DO Work Phone: [facility] [employer] 04-24-2024 22:54-0400 Diastolic blood pressure 79 mm[Hg] Siri Barrera DO Work Phone: [facility] [employer] 04-24-2024 22:54-0400 Heart rate 73 /min Siri Barrera DO Work Phone: [facility] [employer] 04-24-2024 22:54-0400 Respiratory rate 17 /min Siri Barrera DO Work Phone: [facility] [employer] 04-24-2024 22:54-0400 SaO2% (BldA) [Mass fraction] 99 % Siri Barrera DO Work Phone: [facility] [employer] 04-24-2024 22:54-0400 Systolic blood pressure 111 mm[Hg] Siri Barrera DO Work Phone: [facility] [employer] 04-15-2024 23:56-0400 Body temperature 97.7 [degF] Sharee Kimball MD Work Phone: [facility] [employer] 04-15-2024 22:52-0400 Body height 154.9 cm Sharee Kimball MD Work Phone: [employer] 04-15-2024 22:52-0400 Body mass index (BMI) [Ratio] 22.67 kg/m2 Sharee Kimball MD Work Phone: [facility] [employer] 04-15-2024 22:52-0400 Body weight 54.43 kg Sharee Kimball MD Work Phone: [employer] 04-15-2024 22:52-0400 Diastolic blood pressure 80 mm[Hg] Sharee Kimball MD Work Phone: [employer] 04-15-2024 22:52-0400 Heart rate 89 /min Sharee Kimball MD Work Phone: [employer] 04-15-2024 22:52-0400 Respiratory rate 16 /min Sharee Kimball MD Work Phone: [employer] 04-15-2024 22:52-0400 SaO2% (BldA) [Mass fraction] 98 % Sharee Kimball MD Work Phone: [employer] 04-15-2024 22:52-0400 Systolic blood pressure 123 mm[Hg] Sharee Kimball MD Work Phone: [facility] [employer] 01-11-2024 12:13-0400 Body temperature 97.81 [degF] Chencho [facility]inedo MD [facility] 01-11-2024 12:13-0400 Diastolic blood pressure 84 mm[Hg] Chencho Pinedo MD [employer] 01-11-2024 12:13-0400 Heart rate 96 /min Chencho Pinedo MD [facility] [employer] 01-11-2024 12:13-0400 Respiratory rate 18 /min Chencho [facility]inedo MD [facility] 01-11-2024 12:13-0400 SaO2% (BldA) [Mass fraction] 100 % Chencho Pinedo MD [facility] [employer] 01-11-2024 12:13-0400 Systolic blood pressure 126 mm[Hg] Chencho Pinedo MD [facility] [employer] 05-23-2022 13:58-0400 Diastolic blood pressure 58 mm[Hg] Melissa Nazemi DO Work Phone: [facility] 05-23-2022 13:58-0400 Heart rate 56 /min Melissa Nazemi DO Work Phone: [facility] 05-23-2022 13:58-0400 Respiratory rate 16 /min Melissa Nazemi DO Work Phone: [facility] 05-23-2022 13:58-0400 SaO2% (BldA) [Mass fraction] 100 % Melissa Nazemi DO Work Phone: [facility] 05-23-2022 13:58-0400 Systolic blood pressure 100 mm[Hg] Melissa Nazemi DO Work Phone: [facility] 05-23-2022 13:22-0400 Body temperature 97.2 [degF] Melissa Nazemi DO Work Phone: [facility] [employer] 05-23-2022 12:00-0400 Body height 154.9 cm Melissa Nazemi DO Work Phone: [facility] 05-23-2022 12:00-0400 Body mass index (BMI) [Ratio] 21.35 kg/m2 Melissa Nazemi DO Work Phone: [facility] 05-23-2022 12:00-0400 Body weight 51.26 kg Melissa Nazemi DO Work Phone: [facility] [employer] 04-03-2022 02:51-0400 Body temperature 97.81 [degF] Oneyda Dickens MD Work Phone: [facility] [employer] 04-03-2022 02:51-0400 Diastolic blood pressure 75 mm[Hg] Oneyda Dickens MD Work Phone: [facility] [employer] 04-03-2022 02:51-0400 Heart rate 78 /min Oneyda Dickens MD Work Phone: [facility] [employer] 04-03-2022 02:51-0400 Respiratory rate 18 /min Oneyda Dickens MD Work Phone: [facility] [employer] 04-03-2022 02:51-0400 SaO2% (BldA) [Mass fraction] 100 % Oneyda Dickens MD Work Phone: [facility] [employer] 04-03-2022 02:51-0400 Systolic blood pressure 150 mm[Hg] Oneyda Dickens MD Work Phone: [facility] [employer] 01-14-2022 12:00-0400 Diastolic blood pressure 78 mm[Hg] Siri Barrera DO Work Phone: [facility] [employer] 01-14-2022 12:00-0400 Heart rate 84 /min Siri Barrera DO Work Phone: [facility] [employer] 01-14-2022 12:00-0400 Respiratory rate 16 /min Siri Barrera DO Work Phone: [facility] [employer] 01-14-2022 12:00-0400 SaO2% (BldA) [Mass fraction] 100 % Siri Barrera DO Work Phone: [facility] [employer] 01-14-2022 12:00-0400 Systolic blood pressure 136 mm[Hg] Siri Barrera DO Work Phone: [facility] [employer] 01-14-2022 09:55-0400 Body height 154.9 cm Siri Barerra DO Work Phone: [facility] [employer] 01-14-2022 09:55-0400 Body mass index (BMI) [Ratio] 22.67 kg/m2 Siri Barrera DO Work Phone: [facility] [employer] 01-14-2022 09:55-0400 Body temperature 99.5 [degF] Siri Barrera DO Work Phone: [facility] [employer] 01-14-2022 09:55-0400 Body weight 54.43 kg Siri Barrera DO Work Phone: [facility] 04-13-2017 15:27-0400 BMI (Body Mass Index) 21.15 kg/m2 Marialuisa Huerta [facility] Work Phone: 04-13-2017 15:27-0400 Body Temperature 99.1 [degF] Marialuisa Huerta [facility] Work Phone: 04-13-2017 15:27-0400 BP Diastolic 64 mm[Hg] Marialuisa Huerta [facility] Work Phone: 04-13-2017 15:27-0400 BP Systolic 106 mm[Hg] Marialuisa Huerta [facility] Work Phone: 04-13-2017 15:27-0400 Height 162.6 cm Marialuisa Huerta [facility] Work Phone: 04-13-2017 15:27-0400 Pulse (Heart Rate) 89 /min Marialuisa Huerta [facility] Work Phone: 04-13-2017 15:27-0400 Weight 55.88 kg Marialuisa Huerta [facility] Work Phone: 03-10-2017 15:00-0400 BMI (Body Mass Index) 20.25 kg/m2 Marialuisa Huerta [facility] Work Phone: 03-10-2017 15:00-0400 Body Temperature 98.2 [degF] Marialuisa Huerta [facility] Work Phone: 03-10-2017 15:00-0400 BP Diastolic 72 mm[Hg] Marialuisa Huerta [facility] Work Phone: 03-10-2017 15:00-0400 BP Systolic 113 mm[Hg] Marialuisa Huerta [facility] Work Phone: 03-10-2017 15:00-0400 Height 162.6 cm Marialuisa Huerta [facility] Work Phone: 03-10-2017 15:00-0400 Pulse (Heart Rate) 87 /min Marialuisa Huerta [facility] Work Phone: 03-10-2017 15:00-0400 Weight 53.52 kg Marialuisa Huerta [facility] Work Phone: Encounters Encounter Date Encounter Type Care Provider Facility Start: 07-17-2024 End: 07-17-2024 Emergency department patient visit [facility] Start: 07-13-2024 End: 07-13-2024 [facility] Start: 07-10-2024 End: 07-10-2024 Emergency department patient visit [facility] Emergency Department Comment on above: Pain, dental (Primar y Dx); Pain due to dental caries; Dental infection Start: 07-07-2024 End: 07-07-2024 [facility] Start: 07-07-2024 End: 07-07-2024 Subsequent hospital visit by physician Tom Perkins MD Work Phone: [facility] Comment on above: Low back pain, unspe cified back pain laterality, unspecified chronicity, unspecified whether sciatica present; Vaginal discharge; Left hip pain Start: 07-05-2024 End: 07-07-2024 [facility] Start: 07-05-2024 End: 07-07-2024 Subsequent hospital visit by physician Chris Thomas Dr Room 2 [facility] Radiology Comment on above: Cough, unspecified t ype Start: 06-24-2024 End: 06-24-2024 Telephone encounter Ellie Contreras LPN [facility] Hepatobiliary[facility] Pancreatic [facility] Endocrine Surgery Start: 06-17-2024 End: 06-17-2024 Evaluation and management of inpatient ANGELIA MORENO [facility] Start: 06-15-2024 End: 06-15-2024 Emergency department patient visit [facility] ED Comment on above: Need for diphtheria- tetanus-pertussis (Tdap) vaccine (Primary Dx) Start: 06-10-2024 End: 06-10-2024 Office outpatient visit 25 minutes Ashanti Quiñonez MD [facility] Comment on above: Preop cardiovascular exam (Primary Dx); Elevated blood pressure reading; Family history of bicuspid aortic valve; Chest pain, musculoskeletal Start: 06-10-2024 End: 06-10-2024 Patient encounter status Ashanti Quiñonez MD Work Phone: [facility] Start: 06-10-2024 End: 06-10-2024 ambulatory [facility] Start: 06-10-2024 Encounter for preprocedural cardiovascular examination [facility] Start: 06-09-2024 End: 06-09-2024 Telephone encounter [facility] Wilson [facility] Start: 06-08-2024 End: 06-08-2024 Telephone encounter Haydee Esqueda [facility] Start: 06-08-2024 End: 06-08-2024 Emergency department patient visit Siri Barrera DO Work Phone: [facility] ED Comment on above: Pain, dental (Primar y Dx) Start: 06-06-2024 End: 06-06-2024 Telephone encounter Ellie Contreras LPN [facility] Hepatobiliary[facility] Pancreatic [facility] Endocrine Surgery Start: 05-31-2024 End: 05-31-2024 Office outpatient new 45 minutes Cony Lanier PA-C Work Phone: [facility] Comment on above: Dysphagia, unspecifi ed type (Primary Dx); Biliary dyskinesia; Gastroesophageal reflux disease without esophagitis; Right upper quadrant abdominal pain Start: 05-31-2024 End: 05-31-2024 ambulatory [facility] Start: 05-28-2024 End: 05-29-2024 Emergency department patient visit Linn Pozo DO Work Phone: [facility] ED Comment on above: Fall, initial encoun ter (Primary Dx); Contusion of left hand, initial encounter Start: 05-27-2024 End: 05-27-2024 Telephone encounter Ellie Contreras LPN [facility]reatic [facility]ocrine [facility] Start: 05-25-2024 End: 05-25-2024 Telephone encounter Ellie Contreras LPN [facility] Start: 05-23-2024 End: 05-23-2024 Emergency department patient visit LATRICIA JIN [facility] Start: 05-18-2024 End: 05-18-2024 Telephone encounter Ellie Contreras LPN [facility]reat[facility] Start: 05-17-2024 End: 05-17-2024 Office consultation new/estab patient 80 min Tete Hoang MD [facility] Comment on above: Biliary dyskinesia ( Primary Dx); Gastroesophageal reflux disease without esophagitis; Right upper quadrant abdominal pain; Costochondritis Start: 05-17-2024 End: 05-17-2024 ambulatory TETE HOANG [facility] Start: 05-16-2024 [facility] Start: 05-07-2024 End: 05-07-2024 Emergency department patient visit [facility] Start: 05-03-2024 End: 05-03-2024 Emergency department patient visit Siri Barrera DO Work Phone: [facility] ED Comment on above: Pain of upper abdome n (Primary Dx) Start: 05-01-2024 End: 05-02-2024 Emergency department patient visit Linn Pozo DO Work Phone: [facility] ED Comment on above: Chest pain, unspecif ied type (Primary Dx) Start: 04-24-2024 End: 04-24-2024 Emergency department patient visit Siri Barrera DO Work Phone: [facility] ED Comment on above: Muscle pain (Primary Dx) Start: 04-24-2024 End: 04-24-2024 Emergency department patient visit TOM PERKINS [facility] Start: 04-15-2024 End: 04-16-2024 Emergency department patient visit Sharee Kimball MD Work Phone: [facility] ED Comment on above: Flank pain (Primary Dx) Start: 03-30-2024 End: 03-30-2024 Emergency department patient visit SIRI BARRERA [facility] Start: 03-29-2024 End: 03-29-2024 [facility] Start: 03-29-2024 End: 03-29-2024 Subsequent hospital visit by physician Tom Perkins MD Work Phone: [facility] Laboratory Comment on above: Other acute back josé miguel n; Hematuria, unspecified type Start: 03-18-2024 End: 03-18-2024 Emergency department patient visit CHENCHO CAROLE [facility] Start: 01-22-2024 End: 01-22-2024 [facility] Start: 01-22-2024 End: 01-22-2024 Subsequent hospital visit by physician Tom Perkins MD Work Phone: [facility] Comment on above: Temperature intolera nce Start: 01-16-2024 End: 01-16-2024 [facility] Start: 01-15-2024 End: 01-15-2024 [facility] Start: 01-15-2024 End: 01-15-2024 Subsequent hospital visit by physician Tom Perkins MD Work Phone: [facility] Comment on above: Generalized abdomina l pain; Nasal and sinus discharge Start: 01-11-2024 End: 01-11-2024 Emergency department patient visit Chencho Pinedo [facility] ED Comment on above: Left lower quadrant abdominal pain (Primary Dx); BV (bacterial vaginosis) Start: 12-02-2023 End: 12-02-2023 [facility] BRANDYN GHOSH [facility] Start: 11-30-2023 End: 12-01-2023 Emergency department patient visit [facility] Start: 11-30-2023 Encounter for other specified special examinations [facility] Start: 11-24-2023 End: 11-26-2023 ambulatory MARIALUISA HUERTA [facility] Start: 11-18-2023 End: 11-18-2023 [facility] Start: 11-16-2023 End: 11-16-2023 [facility] Start: 11-12-[address] [facility] Start: 11-11-2023 End: 11-11-2023 Emergency department patient visit YARELI COBB [facility] Start: 11-08-2023 End: 11-08-2023 Emergency department [facility] [facility] Start: 10-26-[address] [facility] Start: 10-21-2023 End: 10-21-2023 [facility] Start: 05-23-2022 End: 05-23-2022 Subsequent hospital visit by physician Melissa Bridges DO Work Phone: [facility] Comment on above: Epigastric pain Start: 05-13-2022 End: 05-13-2022 Subsequent hospital visit by physician Marialuisa Huerta DO Work Phone: [facility] Laboratory Comment on above: ASCUS with positive high risk HPV cervical Start: 04-03-2022 End: 04-03-2022 Emergency department patient visit Oneyda Dickens MD Work Phone: [facility] Comment on above: Otalgia of right ear (Primary Dx); Subacute otitis media, unspecified otitis media type Start: 03-26-2022 End: 03-26-2022 [facility] Comment on above: Screening for malign ant neoplasm of cervix Start: 01-14-2022 End: 01-14-2022 Emergency department patient visit Siri Barrera DO Work Phone: [facility] Comment on above: Musculoskeletal back pain (Primary Dx) Start: 10-11-2019 End: 10-13-2019 Subsequent hospital visit by physician Chris Ultrasound Room [facility] Ultrasound Comment on above: RUQ pain; Nausea; Bloating Start: 04-18-2019 End: 04-18-2019 [facility] Start: 04-12-2019 End: 04-13-2019 Patient encounter procedure JOLLY ROSALES Facility:[facility] Start: 01-07-2019 End: 01-12-2019 Patient encounter status Siri Barrera DO Work Phone: [facility] Work Phone: Start: 09-06-2018 End: 09-06-2018 [facility] Start: 04-21-2017 Ambulatory [facility] Start: 04-13-2017 End: 04-13-2017 Office outpatient visit 25 minutes Marialuisa Huerta Work Phone: [facility] Comment on above: Maxillary sinusitis, unspecified chronicity (Primary Dx);Attention deficit hyperactivity disorder (ADHD), combined type;Tobacco abuse Start: 03-10-2017 Office/outpatient vi sit, est, level 4 Marialuisa Huerta Work Phone: [facility] Procedures Date Procedure Procedure Detail Performing Clinician Start: 07-10-2024 Basic metabolic panel calcium total Maninder Varma [employer] PA-C Work Phone: Start: 07-10-2024 C-reactive protein Maninder Varma [place] PA-C Work Phone: Start: 07-10-2024 COVID-19, RAPID Maninder Varma [employer] PA-C Work Phone: Start: 07-10-2024 Iaadiadoo influenza Maninder Varma [employer] PA-C Work Phone: Start: 07-07-2024 Urnls dip stick/tablet reagent auto microscopy Brandyn Ghosh INFORMATION SYSTEMS AUDITOR - CNM Work Phone: Start: 07-05-2024 Radiologic exam chest 2 views Tom Perkins MD Work Phone: Start: 06-10-2024 Ecg routine ecg w/least 12 [...] 05-01-2024 Radiologic exam chest single view Phillip Pozo DO Work Phone: Start: 05-01-2024 Ecg routine ecg w/least 12 lds w/i&r Linn Pozo DO Work Phone: Start: 04-15-2024 Urinalysis microscopic only Sharee G Jennifer san MD Work Phone: Start: 04-15-2024 Urine test visual color cmprsn meths Sharee Penny Kimball MD Work Phone: Start: 04-15-2024 Comprehensive metabolic panel Sharee G Tammy george MD Work Phone: Start: 03-29-2024 Urnls dip stick/tablet reagent auto microscopy Brandyn Ghosh INFORMATION SYSTEMS AUDITOR - CN Work Phone: Start: 01-22-2024 Assay of free thyroxine Brandyn velasco INFORMATION SYSTEMS AUDITOR - CNM Work Phone: Start: 01-15-2024 ALLERGEN, [...] Nazemi DO Work Phone: Start: 05-23-2022 Esophagogastroduodenoscopy Melissaalexandra Locoz joão DO Work Phone: Start: 03-26-2022 Microscopic observation [Identifier] in Cervix by Cyto stain Marialuisa Huerta DO Work Phone: Start: 01-14-2022 Urnls dip stick/tablet reagent auto microscopy Siri Beard Barrera DO Work Phone: Start: 01-14-2022 Assay of amylase Siri Beard Barrera DO Work Phone: Start: 01-14-2022 BASIC METABOLIC PANEL W/ REFLEX TO MG FOR LOW K Siri Chirag Barrera DO Work Phone: Start: 01-14-2022 Hepatic function panel Siri Dasbal D O Work Phone: Start: 10-11-2019 Us abdominal real time w/image limited Melissa I Nazemi Work Phone: Start: 04-23-2017 Microscopic observation [Identifier] in Cervix by Cyto stain Siri Barrera DO Work Phone: Plan of Treatment Date Care Activity Detail Author Start: 2044 Shingles Vaccine (1 of 2) Shingles Vaccine (1 of 2) Radha Moulton alth- [place], [place] Start: 06-15-2034 DTaP,Tdap and Td Vaccines (8 - Td or Tdap) DTaP,Tdap and Td Vaccines (8 - Td or Tdap) [facility] Start: 06-15-2034 DTaP/Tdap/Td vaccine (8 - Td or Tdap) DTaP/Tdap/Td vaccine (8 - Td or Tdap) [facility] Start: 01-14-2034 COVID-19 Vaccine (#1) COVID-19 Vaccine (#1) [facility] Comment on above: Postponed from 01/06/1995 (Unavailable) Start: 01-14-2034 COVID-19 Vaccine ( season) COVID-19 Vaccine ( season) [facility] Comment on above: Postponed from 04/03/2023 (Unavailable) Start: 05-20-2030 DTaP,Tdap and Td Vaccines (7 - Td or Tdap) DTaP,Tdap and Td Vaccines (7 - Td or Tdap) [facility] Start: 05-20-2030 DTaP/Tdap/Td vaccine (7 - Td or Tdap) DTaP/Tdap/Td vaccine (7 - Td or Tdap) [facility] Start: 05-20-2030 Tetanus vaccination TETANUS [facility] Start: 12-01-2028 Screening for malignant neoplasm of cervix [facility] Start: 12-01-2026 Screening for malignant neoplasm of cervix Pap smear [facility] Start: 07-07-2025 COVID-19 Vaccine ( season) COVID-19 Vaccine () [facility] Comment on above: Postponed from 04/03/2024 (Patient Refus ed) Start: 07-07-2025 Depression Screen Depression Screen [facility] Start: 07-07-2025 Influenza vaccination Flu vaccine (#1) [facility] Comment on above: Postponed from 03/03/2024 (Patient Refus ed) Start: 06-17-2025 Adult BMI Screening Adult BMI Screening [facility] Start: 06-17-2025 Tobacco Screening Tobacco Screening [facility] Start: 06-13-2025 Depression Screen Depression Screen [facility] Start: 06-10-2025 Adult BMI Screening Adult BMI Screening [facility] Start: 06-01-2025 Depression Screen Depression Screen [facility] Start: 05-31-2025 Adult BMI Screening Adult BMI Screening [facility] Start: 05-31-2025 Tobacco Screening Tobacco Screening [facility] Start: 05-17-2025 Tobacco Screening Tobacco Screening [facility] Start: 03-26-2025 Screening for malignant neoplasm of cervix Pap smear [facility] Start: 01-14-2025 DTaP/Tdap/Td vaccine (6 - Tdap) DTaP/Tdap/Td vaccine (6 - Tdap) [facility] Comment on above: Postponed from 2005 (Patient Refus ed) Start: 12-25-2024 Depression Screen Depression Screen [facility] Start: 09-19-2024 End: 09-19-2024 Admission to same day surgery center 09/19/2024 10:30 AM EST - 09/19/2024 12:30 PM EST Surgery [facility] [address] [place] [address] Jolly Bender, DO [address] [place] [address] HYSTERECTOMY VAGINAL LAPAROSCOPIC ROBOTIC ASSISTED POSS BAKARI OOPHORECTOMY, POSS LAP COLPOPEXY [facility] Comment on above: HYSTERECTOMY VAGINAL LAPAROSCOPIC ROBOTI C ASSISTED POSS BAKARI OOPHORECTOMY, POSS LAP COLPOPEXY Start: 09-19-2024 End: 09-19-2024 Anesthesia consultation 09/19/2024 10:30 AM EST Anesthesia Event [facility] [address] [place] [address] Aylin Winn, INFORMATION SYSTEMS AUDITOR - VOCATIONAL REHABILITATION TECHNICIAN [address] [place] [address] [facility] Start: 09-19-2024 End: 09-19-2024 Laparoscopy w total hysterectomy uterus 250 gm/< HYSTERECTOMY VAGINAL LAPAROSCOPIC ROBOTIC ASSISTED Pelvic pain 09/19/2024 10:30 AM [facility] Start: 09-19-2024 Subsequent hospital visit by physician 09/19/2024 10:30 AM EST Hospital Encounter [facility] [address] [place] [address] Tad RoweJolly treviño, DO [address] [place] [address] [facility] Start: 08-30-2024 End: 08-30-2024 Patient encounter procedure 08/30/2024 9:00 AM EST Off ice Visit [facility]YNEC[facility]Y [address] [place] [address] Tad Jolly Rosales, DO [address] [place] [address] 6 wk post-op [facility] BA 01/05 [facility] Comment on above: 6 wk post-op [facility] BA 01/05 Start: 08-25-2024 End: 08-25-2024 Admission to same day surgery center [facility] Comment on above: LAPAROSCOPIC CHOLECYSTECTOMY [26676 (CPT )] Start: 08-25-2024 End: 08-25-2024 Laparoscopy surg cholecystectomy LAPAROSCOPIC CHOLECYSTECTOMY BILIARY HYPERKINESIA 08/25/2024 7:30 AM EST [facility] Start: 08-25-2024 Subsequent hospital visit by physician [facility] Start: 08-18-2024 End: 08-18-2024 Patient encounter procedure 08/18/2024 4:00 PM EST Off ice Visit [facility] [address] [place] [address] Tom Perkins MD [address] [place] [address] [address] [place] [address] fu abd pain [facility] Comment on above: fu abd pain Start: 08-11-2024 End: 08-11-2024 Patient encounter procedure 08/11/2024 1:45 PM EST Procedure visit [facility] On [address] [address] [facility] Start: 08-10-2024 End: 08-10-2024 Patient encounter procedure 08/10/2024 9:00 AM EST Off ice Visit [facility] [address] [place] [address] Bria Vance PA-C [address] [place] [address] 2 wk post-op BA 6/ [facility] Comment on above: 2 wk post-op BA 6/ Start: 08-09-2024 End: 08-09-2024 Patient encounter procedure 08/09/2024 10:30 AM EST Of fice Visit [facility] GYNECOLOGY [address] [place] [address] Jolly Bender, DO [address] [place] [address] 5 wk post-op [facility] BA 01/05, pt going to [place] 08/12 [facility] Comment on above: 5 wk post-op [facility] BA 6, pt going to [place] 08/12 Start: 07-25-2024 End: 07-25-2024 Admission to same day surgery center 07/25/2024 9:00 AM EST - 07/25/2024 11:00 AM EST Surgery [facility] [address] [place] [address] Jolly Bender, DO [address] [place] [address] HYSTERECTOMY VAGINAL LAPAROSCOPIC ROBOTIC ASSISTED POSS BAKARI OOPHORECTOMY, POSS LAP COLPOPEXY [facility] Comment on above: HYSTERECTOMY VAGINAL LAPAROSCOPIC ROBOTI C ASSISTED POSS BAKARI OOPHORECTOMY, POSS LAP COLPOPEXY Start: 07-25-2024 End: 07-25-2024 Laparoscopy w total hysterectomy uterus 250 gm/< HYSTERECTOMY VAGINAL LAPAROSCOPIC ROBOTIC ASSISTED Pelvic pain 07/25/2024 9:00 AM EST [facility] Start: 07-25-2024 Subsequent hospital visit by physician 07/25/2024 9:00 AM EST Hospital Encounter [facility] [address] [place] [address] Jolly Bender, DO [address] [place] [address] [facility] Start: 07-20-2024 End: 07-20-2024 Patient encounter procedure 07/20/2024 9:15 AM EST Off ice Visit [facility] [address] [place] [address] Bria Vance PA-C [address] [place] [address] 2 wk post-op BA 6/5 [facility] Comment on above: 2 wk post-op BA 6/5 Start: 07-13-2024 End: 07-13-2024 Patient encounter procedure 07/13/2024 3:20 PM EST Off ice Visit [address] [place] [address] Latricia Khoury MD [address] [place] [address] [address] [place] [address] Possible vaginal infection --- UA is normal [facility] Comment on above: Possible vaginal infection --- UA is nor mal Start: 07-12-2024 End: 07-12-2024 Patient encounter procedure 07/12/2024 4:15 PM EST Off ice Visit [address] [place] [address] Jolly Bender, DO [address] [place], [place] [phone] discuss surgery, SHANNAN BA 01/05 [facility]OLOG[facility] Part of [facility] Comment on above: discuss surgery, SHANNAN BA 01/05 Start: 07-04-2024 End: 07-04-2024 Admission to same day surgery center 07/04/2024 1:10 PM EST - 07/04/2024 3:10 PM EST Surgery [facility] [address] [place] [address] Jolly Bender, DO [address] [place] [address] HYSTERECTOMY VAGINAL LAPAROSCOPIC ROBOTIC ASSISTED POSS BAKARI OOPHORECTOMY, POSS LAP COLPOPEXY [facility] Comment on above: HYSTERECTOMY VAGINAL LAPAROSCOPIC ROBOTI C ASSISTED POSS BAKARI OOPHORECTOMY, POSS LAP COLPOPEXY Start: 07-04-2024 End: 07-04-2024 Laparoscopy w total hysterectomy uterus 250 gm/< HYSTERECTOMY VAGINAL LAPAROSCOPIC ROBOTIC ASSISTED Pelvic pain 07/04/2024 1:10 PM EST [facility] Start: 07-04-2024 Subsequent hospital visit by physician 07/04/2024 1:10 PM EST Hospital Encounter [facility] [address] [place] [address] Jolly Bender, DO [address] [place] [address] [facility] Start: 06-23-2024 End: 06-23-2024 Admission to same day surgery center 06/23/2024 12:00 PM EST - 06/23/2024 2:00 PM EST Surgery [facility] [address] [place] [phone] Tete Hoang MD [address], [address] [address] LAPAROSCOPIC CHOLECYSTECTOMY [09207 (CPT )] [facility] Comment on above: LAPAROSCOPIC CHOLECYSTECTOMY [17791 (CPT )] Start: 06-23-2024 End: 06-23-2024 Laparoscopy surg cholecystectomy LAPAROSCOPIC CHOLECYSTECTOMY BILIARY HYPERKINESIA 06/23/2024 12:00 PM EST [facility] Start: 06-23-2024 Subsequent hospital visit by physician 06/23/2024 12:00 PM EST Hospital Encounter [facility] Surgery [address] [place] [phone] Tete Hoang MD [address], [address] [phone] [facility] Start: 06-21-2024 End: 06-21-2024 Patient encounter procedure 06/21/2024 4:45 PM EST Off ice Visit [facility] & [address] [place] [address] Jolly Bender, DO [address] [place] [address] discuss surgery, SHANNAN BA 01/05 [facility] Comment on above: discuss surgery, SHANNAN BA 6 Start: 06-14-2024 End: 06-14-2024 Patient encounter procedure 06/14/2024 8:45 AM EST Off ice Visit [address] [place] [address] Jolly Bender, DO [address] [place] [address] 6 wk post-op [facility] BA 01/05 [facility] Comment on above: 6 wk post-op [facility] BA 6 Start: 06-13-2024 End: 06-13-2024 Patient encounter procedure 06/13/2024 2:30 PM EST Procedure [facility] On [address] [phone] [facility] Start: 06-10-2024 End: 06-10-2025 Echo complete W/O contrast Echo complete W/O contrast Echocardiography Routine Family history of bicuspid aortic valve Expected: 06/10/2024, Expires: 06/10/2025 [facility] Work Phone: Comment on above: Expected: 06/10/2024, Expires: Start: 06-10-2024 End: 06-10-2024 Patient encounter procedure 06/10/2024 9:45 AM EST Off ice Visit [facility] [address] [place] [address] Ashanti Quiñonez MD [address] [place] [address] [facility] Start: 06-09-2024 End: 06-09-2024 Patient encounter procedure 06/09/2024 11:00 AM EST Procedure visit [facility] On [address] [phone] [facility] Start: 05-30-2024 End: 05-30-2024 Patient encounter procedure 05/30/2024 9:00 AM EDT Off ice Visit [facility] GENERAL SURGERY Part of [address] [place] [address] Jose Gomes MD [address] [place] [address] nausea, abdominal pain [facility] Comment on above: nausea, abdominal pain Start: 05-18-2024 End: 05-18-2024 Patient encounter procedure 05/18/2024 8:15 AM EDT Off ice Visit [facility]YN[facility] Part [address] [place] [address] Bria Vance PA-C [address] [place] [address] 2 wk post-op BA 01/05 [facility]YN[facility]OLOG[facility] Comment on above: 2 wk post-op BA Start: 05-09-2024 End: 05-09-2024 Admission to same day surgery center 05/09/2024 11:00 AM EDT - 05/09/2024 1:00 PM EDT Surgery [facility] [address] [place] [address] Jolly Bender, DO [address] [place], [place] [id number] HYSTERECTOMY VAGINAL LAPAROSCOPIC ROBOTIC ASSISTED POSS BAKARI OOPHORECTOMY, POSS LAP COLPOPEXY [facility] Comment on above: HYSTERECTOMY VAGINAL LAPAROSCOPIC ROBOTI C ASSISTED POSS BAKARI OOPHORECTOMY, POSS LAP COLPOPEXY Start: 05-09-2024 End: 05-09-2024 Laparoscopy w total hysterectomy uterus 250 gm/< HYSTERECTOMY VAGINAL LAPAROSCOPIC ROBOTIC ASSISTED Pelvic pain 05/09/2024 11:00 AM EDT [facility] Start: 05-09-2024 Subsequent hospital visit by physician 05/09/2024 11:00 AM EDT Hospital Encounter [facility] [address] [place] [address] Jolly Bender, DO [address] [place] [address] [facility] Start: 04-26-2024 End: 04-26-2024 Patient encounter procedure 04/26/2024 3:30 PM EDT Off ice Visit [facility] GYNECOLOGY [facility] [address] [facility] [address] [place] [address] Jolly Bender, DO [address] [place] [address] discuss surgery, SHANNAN BA 01/05 [facility] GYNECOLOGY [facility] Comment on above: discuss surgery, SHANNAN BA 01/05 Start: 04-03-2024 COVID-19 Vaccine ( season) COVID-19 Vaccine ( season) [facility] Start: 04-03-2024 Influenza vaccination [facility] Start: 04-01-2024 End: 04-01-2024 Patient encounter procedure 04/01/2024 2:40 PM EDT Off ice Visit [facility] [address] [place] [address] [address] [place] [address] Tom Perkins MD [address] [place] [address] [address] [place] [address] SOMETHING GOING ON WITH HER EAR [facility] Comment on above: SOMETHING GOING ON WITH HER EAR Start: 03-03-2024 Influenza vaccination [facility] Start: 02-25-2024 End: 02-25-2024 Patient encounter procedure 02/25/2024 3:20 PM EDT Off ice Visit [facility] [address] [place] [address] [address] [place], [place] [phone] Tom Perkins MD [address] [place] [address] [address] [place] [address] abd pain.f/u [facility] Comment on above: abd pain.f/u Start: 05-28-2022 End: 05-28-2022 Patient encounter procedure 05/28/2022 Procedure visit Obstetrics and Gynecology Brandyn Ghosh, LITO - EUN [address] [facility] [address] [place] [address] [facility] & GYNECOLOGY Part of [facility] Start: 05-23-2022 End: 05-23-2022 Admission to same day surgery center 05/23/2022 Surgery IP Unit Melissa Bridges DO [address] [facility] [address] [place] [phone] EGD ESOPHAGOGASTRODUODENOSCOPY - WITH BIOPSY [facility] Comment on above: EGD ESOPHAGOGASTRODUODENOSCOPY - WITH BI OPSY Start: 05-23-2022 End: 05-23-2022 Egd transoral biopsy single/multiple [facility] Start: 05-23-2022 Subsequent hospital visit by physician 05/23/2022 Hospital Encounter IP Unit Jennifer Bridgesalexandra Snyder, DO [facility] [address] [place] [phone] [facility] Start: 05-23-2022 End: 05-23-2022 Colon ca scrn not hi rsk ind COLORECTAL CANCER SCREENI NG, NOT HIGH RISK Epigastric pain 05/23/2022 12:50 PM EDT [facility] Start: 05-23-2022 End: 05-23-2022 Egd transoral biopsy single/multiple EGD ESOPHAGOGASTRODUODENOSCOPY Epigastric pain 05/23/2022 12:50 PM EDT [facility] Start: 04-03-2022 Influenza vaccination [facility] Start: 03-26-2022 End: 03-26-2022 Patient encounter procedure 03/26/2022 Office Visit Obstetrics and Gynecology Brandyn Ghosh, LITO - EUN [address] [facility] [address] [place] [address] [facility] & GYNECOLOGY [facility] Start: 03-03-2022 Influenza vaccination Flu vaccine (#1) [facility] Start: 01-15-2022 End: 01-15-2022 Patient encounter procedure 01/15/2022 Office Visit General Surgery Melissa Bridges I, [address] [facility] [address] [place] [phone] [facility] GENERAL SURGERY Part [facility] Start: 04-23-2020 Cervical cancer screen Cervical cancer screen [facility] [place] Start: 04-23-2020 Screening for malignant neoplasm of cervix Pap smear [facility] Start: 02-29-2020 End: 02-29-2020 Office Visit 02/29/2020 Office Visit Obstetrics and Gynecology Brandyn Ghosh APRN - EUN [address] [facility] [address] [address] [phone] [facility]OLOG[facility] Start: 02-25-2020 Pneumococcal 0-64 years Vaccine (1 of 1 - PPSV23) Pneumococcal 0-64 years Vaccine (1 of 1 - PPSV23) [place], [place] Comment on above: Postponed from 2000 (Insurance / F inancial) Start: 04-03-2019 Influenza vaccination Flu vaccine (#1) [place], [place] Start: 04-03-2017 Influenza vaccination SEQUENTIAL INFLUENZA VACCINE (#1) [facility] Work Phone: Start: 04-03-2017 SEQUENTIAL INFLUENZA VACCINE (#1) SEQUENTIAL INFLUENZA VACCINE (#1) [facility] Work Phone: Start: 2015 Screening for malignant neoplasm of cervix CERVICAL CANCER SCREENING DISCUSSION [facility] Start: 2012 Adult BMI Follow Up Plan Adult BMI Follow Up Plan [facility] Start: 2012 Adult BMI Screening Adult BMI Screening [facility] Start: 2009 HIV screening HIV SCREENING DISCUSSION [facility] Start: 2006 Depression Screen Depression Screen [facility] Start: 2006 Depression Screening Depression Screening [facility] Start: 2005 DTaP/Tdap/Td vaccine (6 - Tdap) DTaP/Tdap/Td vaccine (6 - Tdap) [facility] Start: 2005 HPV vaccine (1 - 2-dose series) HPV vaccine (1 - 2-dose series) [place], [place] Start: 2005 HPV VACCINES (1 of 3 - Female 3 Dose Series) HPV VACCINES (1 of 3 - Female 3 Dose Series) [facility] Work Phone: Start: 2005 Vaccination for human papillomavirus HPV VACCINES (1 of 3 - Female 3 Dose Series) [facility] Work Phone: Start: 2000 Pneumococcal 0-64 years Vaccine (1 - PCV) Pneumococcal 0-64 years Vaccine (1 - PCV) [facility] Start: 1999 COVID-19 Vaccine (1) COVID-19 Vaccine (1) [employer] Start: 1995 Varicella vaccine (1 of 2 - 2-dose childhood series) Varicella vaccine (1 of 2 - 2-dose childhood series) [employer] Start: 01-06-1995 COVID-19 Vaccine (#1) COVID-19 Vaccine (#1) [employer] Start: 1994 Cytopathology procedure, preparation of smear, genital source PAP SMEAR [facility] Work Phone: Start: 1994 Hepatitis C screening HEPATITIS C VIRUS SCREENING [facility] Start: 1994 Screening for malignant neoplasm of cervix PAP SME[facility] Work Phone: Start: 1994 TETANUS EVERY 10 YR TETANUS EVERY 10 YR [facility] Work Phone: Start: 1994 Tetanus vaccination TETANUS EVERY 10 YR [facility] Work Phone: C.trachomatis N.gono rrhoeae DNA C.trachomatis N.gonorrhoeae DNA Microbiology STAT 01/11/2024 1:25 PM EDT [employer] Celiac Reflex Panel Celiac Refle x Panel Lab Routine Generalized abdominal pain 01/15/2024 2:19 PM EDT [employer] End: 01-15-2024 Culture, Nasal Culture, Nasal Microbiology Routine Nasal and sinus discharge 1 Occurrences starting 01/15/2024 until 01/15/2024 [employer] Comment on above: 1 Occurrences starting 01/15/2024 until 01/15/2024 End: 01-11-2024 Culture, Urine [employer] Comment on above: One Time for 1 Occurrences starting 01/01 until 01/11/2024 End: 03-29-2024 Culture, Urine [employer] Comment on above: 1 Occurrences starting 03/29/2024 until 03/29/2024 End: 07-07-2024 Culture, Urine [employer] Comment on above: 1 Occurrences starting 07/07/2024 until 07/07/2024 End: 01-15-2024 Culture, Wound [employer] Comment on above: Once for 1 Occurrences starting 01/15/20 until 01/15/2024 End: 03-26-2022 Cytopathology procedure, preparation of smear, genital source [facility] Lab Routine Screening for malignant neoplasm of cervix 1 Occurrences starting 03/26/2022 until 03/26/2022 [employer] Phone: Comment on above: 1 Occurrences starting 03/26/2022 until 03/26/2022 EKG 12 Lead EKG 12 Lead ECG STAT 05/01/2024 10:14 PM EDT [employer] End: 05-31-2025 Esophagogastroduodenoscopy EGD GI Routine Right upper quadrant abdominal pain Dysphagia, unspecified type 1 Occurrences starting 05/31/2024 until 05/31/2025 [employer] Work Phone: Comment on above: 1 Occurrences starting 05/31/2024 until 05/31/2025 Food Comprehensive Panel Food Co mprehensive Panel Lab Routine Generalized abdominal pain 01/15/2024 2:19 PM EDT [employer] H. PYLORI DETECTION H. PYLORI DE TECTION Lab Routine Epigastric pain Release Upon Ordering for 1 Occurrences starting 05/23/2022 [employer] Phone: Comment on above: Release Upon Ordering for 1 Occurrences starting 05/23/2022 End: 05-23-2022 INITIATE PACU OXYGEN THERAPY PROTOCOL Initiate PACU Oxygen Therapy Protocol Respiratory Care Routine Continuous until discontinued starting 05/23/2022 [employer] Phone: Comment on above: Continuous until discontinued starting 1 End: 05-13-2022 Surgical Pathology Surgical Pathology Lab Routi ne ASCUS with positive high risk HPV cervical 1 Occurrences starting 05/13/2022 until 05/13/2022 [employer] Phone: Comment on above: 1 Occurrences starting 05/13/2022 until 05/13/2022 Surgical Pathology Surgical Path ology Lab Routine Epigastric pain Release Upon Ordering for 1 Occurrences starting 05/23/2022 [employer] Phone: Comment on above: Release Upon Ordering for 1 Occurrences starting 05/23/2022 End: 05-13-2022 SURGICAL PATHOLOGY REPORT SURGICAL PATHOLOGY REPORT La b Routine Once for 1 Occurrences starting 05/13/2022 until 05/13/2022 [facility] Work Phone: Comment on above: Once for 1 Occurrences starting 05/13/20 until 05/13/2022 End: 01-22-2024 Thyroid Peroxidase Antibody [facility] Comment on above: 1 Occurrences starting 01/22/2024 until 01/22/2024 XR Hand - left 3 Views XR HAND L EFT (MIN 3 VIEWS) Imaging STAT 05/28/2024 11:20 PM EDT [facility] End: 07-07-2024 XR Hip - left 3 Views XR HIP LEFT (2-3 VIEWS) Imaging Routine Left hip pain 1 Occurrences starting 07/07/2024 until 07/07/2024 [facility] Comment on above: 1 Occurrences starting 07/07/2024 until 07/07/2024 Immunizations Immunization Date Immunization Notes Care Provider [facility] 06-15-2024 tetanus toxoid, redu saran diphtheria toxoid, and acellular pertussis vaccine, adsorbed Tom Perkins MD Work Phone: [facility] 05-20-2020 tetanus toxoid, redu saran diphtheria toxoid, and acellular pertussis vaccine, adsorbed Siri Barrera DO Work Phone: [facility] 11-10-2017 measles, mumps and rubella virus vaccine Mth Room [facility] 02-13-2000 diphtheria, tetanus toxoids and acellular pertussis vaccine, unspecified formulation Chencho Pinedo MD [facility] 02-13-2000 measles, mumps and rubella virus vaccine Chencho Pinedo MD [facility] 02-13-2000 poliovirus vaccine, inactivated Chencho Pinedo MD [facility] 04-27-1997 diphtheria, tetanus toxoids and acellular pertussis vaccine, unspecified formulation Chencho Pinedo MD [facility] 04-27-1997 haemophilus influenz ae type b vaccine, conjugate unspecified formulation Chencho Pinedo MD [facility] 04-27-1997 measles, mumps and rubella virus vaccine Chencho Pinedo MD [facility] 03-05-1995 DTP-Haemophilus influenzae type b conjugate vaccine Chencho Pinedo MD [facility] 03-05-1995 hepatitis B vaccine, pediatric or pediatric/adolescent dosage Chencho Pinedo MD [facility] 03-05-1995 trivalent poliovirus vaccine, live, oral Chencho Pinedo MD [facility] 1994 DTP-Haemophilus influenzae type b conjugate vaccine Chencho Pinedo MD [facility] 1994 trivalent poliovirus vaccine, live, oral Chencho Pinedo MD [facility] 1994 DTP-Haemophilus influenzae type b conjugate vaccine Chencho Pinedo MD [facility] 1994 hepatitis B vaccine, pediatric or pediatric/adolescent dosage Chencho Pinedo MD [facility] 1994 trivalent poliovirus vaccine, live, oral Chencho Pinedo MD [facility] 1994 hepatitis B vaccine, pediatric or pediatric/adolescent dosage Chencho Pinedo MD [facility] Payers Date Payer Category Payer Medicaid [employer] [id number] 2023-Present [phone] [address] [place] [address] [id number] 2023 Medicaid HMO [id number] 2019 Unknown 2014 Unknown [facility] xxxxxxxxxxxx 2014-Present [phone] [address] [place] [address] xxxxxxxxxxxx [id number] 2003 Unknown [id number] 2.16.840.1.768991.3.249.13 1994 Unknown [id number] 2.16.840.1.934857.3.579.2.196 1994 Unknown [id number] 2.16.840.1.830574.3.579.2.196 1994 Unknown [id number] 2.16.840.1.233014.3.579.2.182 1994 Unknown [id number] 2.16.840.1.574582.3.579.2.903 1994 Unknown [id number] 2.16.840.1.178097.3.579.2.903 1994 Unknown [id number] 2.16.840.1.241656.3.579.2.983 1994 Unknown [id number] 2.16.840.1.194916.3.579.2.128 6 1994 Unknown [id number] 2.16.840.1.773975.3.579.2.128 6 1994 Unknown [id number] 2.16.840.1.690083.3.579.2.128 6 1994 Unknown [id number] 2.16.840.1.513147.3.579.2.128 6 1994 Unknown [id number] 2.16.840.1.249119.3.579.2.128 6 1994 Unknown [id number] 2.16.840.1.281679.3.579.2.128 6 1994 Unknown [id number] 2.16.840.1.863661.3.579.2.128 6 1994 Unknown [id number] 2.16.840.1.668859.3.579.2.128 6 1994 Unknown [id number] 2.16.840.1.755828.3.579.2.128 6 1994 Unknown [id number] 2.16.840.1.249713.3.579.2.128 6 1994 Unknown [id number] 2.16.840.1.871371.3.579.2.173 1994 Unknown [id number] 2.16.840.1.766208.3.579.2.173 1994 Unknown [id number] 2.16.840.1.695476.3.579.2.173 1994 Unknown [id number] 2.16.840.1.717100.3.579.2.173 1994 Unknown [id number] 2.16.840.1.970381.3.579.2.173 1994 Unknown [id number] 2.16.840.1.806529.3.579.2.173 1994 Unknown [id number] 2.16.840.1.431943.3.579.2.173 1994 Unknown [id number] 2.16.840.1.595066.3.579.2.173 1994 Unknown [id number] 2.16.840.1.233772.3.579.2.173 1994 Unknown [id number] 2.16.840.1.782716.3.579.2.173 1994 Unknown [id number] 2.16.840.1.812203.3.579.2.173 1994 Unknown [id number] 2.16.840.1.345855.3.579.2.173 1994 Unknown [id number] 2.16.840.1.578714.3.579.2.173 1994 Unknown [id number] 2.16.840.1.426252.3.579.2.173 1994 Unknown [id number] 2.16.840.1.630308.3.579.2.173 1994 Unknown [id number] 2.16.840.1.020669.3.579.2.173 1994 Unknown [id number] 2.16.840.1.052717.3.579.2.173 1994 Unknown [id number] 2.16.840.1.180956.3.579.2.173 1994 Unknown [id number] 2.16.840.1.238691.3.579.2.173 1994 Unknown [id number] 2.16.840.1.695088.3.579.2.173 1994 Unknown [id number] 2.16.840.1.120107.3.579.2.173 1994 Unknown [id number] 2.16.840.1.265402.3.579.2.173 1994 Unknown [id number] 2.16.840.1.898970.3.579.2.173 1994 Unknown [id number] 2.16.840.1.918969.3.579.2.173 1994 Unknown [id number] 2.16.840.1.207522.3.579.2.173 1994 Unknown [id number] 2.16.840.1.367057.3.579.2.173 1994 Unknown [id number] 2.16.840.1.754301.3.579.2.173 1994 Unknown [id number] 2.16.840.1.220154.3.579.2.173 1994 Unknown [id number] 2.16.840.1.716332.3.579.2.173 1994 Unknown [id number] 2.16.840.1.116367.3.579.2.173 1994 Unknown [id number] 2.16.840.1.269349.3.579.2.173 Social History Date Type Detail Facility Start: 04-13-2017 End: 10-06-2019 Tobacco smoking status [facility] Current every day smoker [facility] [employer] Work Phone: Start: 04-13-2017 End: 07-10-2024 Cigarettes smoked current (pack per day) - Reported [employer] Start: 1994 Sex Assigned At Not on file [employer] Work Phone: Start: 01-01-2019 End: 01-01-2021 History of tobacco use Cigarette Smoker [facility] [place] Start: 10-06-2019 End: 05-23-2022 Alcohol intake Current non-drinker of alcohol (finding) [facility] [place] Start: 01-04-2022 End: 05-23-2022 Exposure to SARS-CoV-2 (event) Not sure [employer] Start: 03-11-2022 End: 01-01-2024 Tobacco smoking status [facility] Ex-smoker [employer] Start: 01-01-2019 End: 01-01-2021 History of tobacco use Current smoker [employer] Work Phone: Start: 03-11-2022 End: 01-01-2024 Tobacco use and exposure Smokeless tobacco non-user [employer] Work Phone: Start: 01-01-2019 End: 01-01-2021 History of tobacco use [employer] Start: 01-11-2024 End: 07-10-2024 Alcohol intake Ex-drinker (finding) [employer] Start: 11-11-2023 End: 07-10-2024 Alcohol Use Disorder Identification Test - Consumption [AUDIT-C] [employer] How often to you hav e a drink containing alcohol? Never [employer] How many standard dr inks containing alcohol do you have on a typical day? Patient does not drink [employer] Start: 04-24-2024 End: 05-03-2024 Alcoholic beverage intake Current drinker of alcohol (finding) [employer] How often to you hav e a drink containing alcohol? 4 or more times a week [employer] How many standard dr inks containing alcohol do you have on a typical day? 1 or 2 [employer] Start: 04-24-2024 Alcohol Comment socially [employer] Start: 05-07-2024 Tobacco smoking status [facility] Tobacco smoking consumption unknown [facility] Start: 03-06-2015 Sex Female (finding) [facility] (I/We) worried reji er (my/our) food would run out before (I/we) got money to buy more. Never true [facility] [employer] At any time in the p ast 12 months, were you homeless or living in nursing home [including now]? No [facility] How often to you hav e a drink containing alcohol? Monthly or less [facility] Clinical Notes 04-03-2022 to 07-10-2024 Discharge InstructionsAttachmentsTelephone Encounter - Ellie Contreras LPN - 06/24/2024 8:16 AM ESTTelephone Encounter - Ellie Contreras LPN - 06/24/2024 8:16 AM ESTPatient InstructionsAttachments Note Date & Type Note Facility 07-10-2024 Hospital Discharg e instructions Maninder Tapia PA-C - 07/10/2024 10:06 PM EST Continue Tylenol and or ibuprofen for pain control take clindamycin as instructed as well as Peridex The following attachments cannot be sent through Care Everywhere.Tooth: Abscessed (Chinese)documented in this encounter [facility] 06-24-2024 Miscellaneous Notes Patient has been cleared for surgery at low risk by her post graduate internship Dr. Quiñonez . Per Dr. Quiñonez note on 06/10/24 patient does need to get an echocardiogram done for bicuspid aortic valve screening but states this does not necessarily need to be done prior to surgery. Compliance Director spoke with Whitney with pre admission testing who states to encourage patient to get this done prior to surgery as sometimes even though post graduate internship states this does not lorraine to be done prior to surgery once anesthesia reviews patient's case they will require this to be done prior to surgery. Compliance Director spoke with patient to update her ands she will try to get this scheduled prior to surgery documented in this encounter [facility] 06-24-2024 Telephone encounter Note Patient has been cleared for surgery at low risk by her post graduate internship Dr. Quiñonez . Per Dr. Quiñonez note on 06/10/24 patient does need to get an echocardiogram done for bicuspid aortic valve screening but states this does not necessarily need to be done prior to surgery. Compliance Director spoke with Whitney with pre admission testing who states to encourage patient to get this done prior to surgery as sometimes even though post graduate internship states this does not lorraine to be done prior to surgery once anesthesia reviews patient's case they will require this to be done prior to surgery. 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 Exercise Vital Sign Days of Exercise [...] for this encounter. [facility] 06-10-2024 Instructions Ashanti Quiñonez MD - 06/10/2024 9:45 AM EST -- you do not have to wait for the echocardiogram to proceed with your EGD. [facility] 06-09-2024 Miscellaneous Notes Left message for patient to remind them to bring their most current medication list with them to their appointment. documented in this encounter [facility] 06-09-2024 Telephone encounter Note Left message for patient to remind them to bring their most current medication list with them to their appointment. [facility] 06-08-2024 Miscellaneous Notes Reason: Patient called Patient [...] and verbalized understanding. documented in this encounter [facility] 06-08-2024 Telephone encounter Note Reason: Patient called [...] take besides Tylenol. Please Advise Thank You [facility] 06-08-2024 Telephone encounter Note Low-dose ibuprofen 400mg twice daily would be okay as long as there was food in her stomach. Stop medication if it causes abdominal pain. [facility] 06-08-2024 Telephone encounter Note Patient notified and verbalized understanding. [facility] 06-08-2024 Hospital Discharg e instructions Siri Barrera DO - 06/08/2024 1:23 AM EST Please follow-up with your dentist in the morning. Continue applying ice to the area 20 minutes at a time multiple times a day to help with the pain. You can also continue taking Tylenol as directed. The following attachments cannot be sent through Care Everywhere.Tooth and Gum Pain (Chinese)documented in this encounter [facility] 06-06-2024 Miscellaneous Notes Patient stated her hysterectomy has been moved up to 07/04/24 so she needs to move her surgery with our office out. Surgery has been changed to 08/25/24 at 7:30AM, patient to arrive at 5:30AM entrance A [facility]. Pre op testing on 08/08/24 at 1:45PM. documented in this encounter [facility] 06-06-2024 Telephone encounter Note Patient stated her hysterectomy has been moved up to 07/04/24 so she needs to move her surgery with our office out. Surgery has been changed to 08/25/24 at 7:30AM, patient to arrive at 5:30AM entrance [facility]. Pre op testing on 08/08/24 at 1:45PM. [facility] 05-31-2024 History of Presen t illness Narrative [facility] New Patient Visit - [...] with dilation and colonoscopy 05/24/2022, performed in [place]. Procedure indications of epigastric pain, GERD and [...] She will undergo EGD with Dr. Moreno [address] after cardiac clearance for chest pain [...] is agreeable with plan. CONY LANIER PA-C [facility] [place] [address] PH: [phone] [facility] 1. Dysphagia, unspecified type 2. Biliary dyskinesia [...] PA-C 05/31/24 1518 documented in this encounter [facility] 05-29-2024 Hospital DischLinn Grant DO - 05/29/2024 12:01 AM EDT Please follow-up with your primary care provider in 2 days for reevaluation. Okay to take Tylenol for pain control elevate hand when able and apply ice. Return to ER for worsening symptoms. documented in this encounter [facility] 05-27-2024 Miscellaneous Notes Patient stated he previously tested posted for H pylor and would like Dr Hoang to recheck this as she states it may have been a false positive as she had urine it in. Compliance Director advised patient per Dr Hoang she needs to see Gi for this as this is something that our office does not do. Compliance Director gave patient [facility] contact information to call to get an appointment documented in this encounter [facility] 05-27-2024 Telephone encounter Note Patient stated he previously tested posted for H pylor and would like Dr Hoang to recheck this as she states it may have been a false positive as she had urine it in. Compliance Director advised patient per Dr Hoang she needs to see Gi for this as this is something that our office does not do. Compliance Director gave patient [facility] contact information to call to get an appointment [facility] 05-25-2024 Miscellaneous Notes Patient stated she just [...] to take as this is not a ad terminal makeup operator mediation. Patient stated she is freaked out as people she knows are telling her that her gallbladder will explode. Compliance Director advised patient that signs and symptoms to look for would be fever, chills , nausea, vomiting , increased pain that do not go away. documented in this encounter [facility] 05-25-2024 Telephone encounter Note Patient stated she [...] to take as this is not a skilled nursing mediation. Patient stated she is freaked out as people she knows are telling her that her gallbladder will explode. Compliance Director advised patient that signs and symptoms to look for would be fever, chills , nausea, vomiting , increased pain that do not go away. [facility] 05-18-2024 Miscellaneous Notes Spoke with patient to let her know surgery is scheduled on 06/23/24 at 12:00PM, patient to arrive at entrance [facility] at 10:00AM, pre op testing is 06/09/24 at 11:00AM. documented in this encounter [facility] 05-18-2024 Telephone encounter Note Spoke with patient to let her know surgery is scheduled on 06/23/24 at 12:00PM, patient to arrive at entrance [facility] at 10:00AM, pre op testing is 06/09/24 at 11:00AM. [facility] 05-17-2024 History of Presen t illness Narrative [...] Physical Activity: Sufficiently Active (01/01/2024) Received from [facility] Exercise Vital Sign Days of Exercise [...] will obtain risk stratification and optimization by post graduate internship prior to surgery. Scribed for and in the presence of Tete Hoang MD by Alma Eastman (scribe). Alma Eastman 05/17/24 1400 PROVIDER STATEMENT I Tete Hoang MD personally performed the services described in the documentation, as scribed by Alma Eastman in my presence, and it is both accurate and complete. documented in this encounter [facility] 05-07-2024 Emergency department Note At bedside to discharge patient. All paperwork, medication, education, and follow-up gone over. Pt verbalizes understanding and denies any questions or concerns. VSS, RR is regular and unlabored. Pt does not appear to be in any distress at this time, states those medications did make me feel a little better . Waldron is steady with ambulation out of the ED. [facility] 05-07-2024 Emergency department Note At bedside to discharge patient. All paperwork, medication, education, and follow-up gone over. Pt verbalizes understanding and denies any questions or concerns. VSS, RR is regular and unlabored. Pt does not appear to be in any distress at this time, states those medications did make me feel a little better . Waldron is steady with ambulation out of the ED. Emergency Department Report [facility] EMERGENCY MEDICINE Service Date:.05/07/24 PCP: Tom [...] Physical Activity: Sufficiently Active (01/01/2024) Received from [facility] Exercise Vital Sign Days of Exercise [...] (A) YELLOW APPEARANCE, URINE CLEAR CLEAR Specific [place], Urine 1.010 1.010 - 1.025 PH URINE [...] MD 05/07/24 1304 documented in this encounter [facility] 05-07-2024 Physician Emergency department Note Emergency Department Report [facility] EMERGENCY [facility]IC[facility] Service Date:.05/07/24 PCP: Tom Perkins Chief Complaint: Chief Complaint Patient presents with Abdominal Pain RUQ pain on and off for the past week. KIM Moulotn is a 28 y.o. female presents to [...] Physical Activity: Sufficiently Active (01/01/2024) Received from [facility] Exercise Vital Sign Days of Exercise [...] (A) YELLOW APPEARANCE, URINE CLEAR CLEAR Specific [place], Urine 1.010 1.010 - 1.025 PH URINE [...] CORRECTED . Aiden Salcedo MD 05/07/24 1304 [facility] 05-03-2024 Hospital Discharg e instructions Siri Barrera [...] cannot be sent through Care Everywhere.Abdominal Pain (Chinese)documented in this encounter [facility] 05-02-2024 [facility] Discharg e instructions Linn Pozo DO - 05/02/2024 2:13 AM EDT Please follow up with your primary care provider, continue to take reflux medications, And zofran to help with nausea, Avoid any spicy or caffeine drinks. documented in this encounter [facility] 04-16-2024 [facility] Discharg e instructions Sharee Kimball MD - 04/16/2024 12:13 AM EDT Please continue taking ibuprofen and Tylenol every 6 hours for pain. You may place lidocaine patch for localized back pain. follow-up outpatient with your primary care doctor on Thursday. Continue oral hydration at home. Please return to the ED for any worsening symptoms or other concerns.. The following attachments cannot be sent through Care Everywhere.Flank Pain (Chinese)documented in this encounter [facility] 01-11-2024 [facility] Discharg e instructions Chencho Pinedo MD - 01/11/2024 2:26 PM EDT Please discuss today's ED visit with your MANAGER OF FINANCIAL REPORTING, as findings of pelvic congestion are again seen. Return to the ED for worsening pain, development of persistent vomiting, fever or any other concerns. The following attachments cannot be sent through Care Everywhere.Bacterial Vaginosis (Chinese)Abdominal Pain (Chinese)documented in this encounter [facility] 05-23-2022 [facility] Discharg e instructions Melissa Bridges DO - [...] Emergency Room. documented in this encounter [facility] [employer] Phone: 05-23-2022 History of Presen t illness [...] patient. Verbalizes understanding. documented in this encounter [employer] Phone: 04-03-2022 Hospital Discharg e instructions Oneyda Dickens MD - 04/03/2022 3:50 AM EDT Continue current medications as prescribed. Start Nasacort and Zyrtec soon as possible and use daily. Follow-up with ENT as soon as possible. Seek medical attention for worsening pain fevers chills or any other acute concerns The following attachments cannot be sent through Care Everywhere.Earache: Adult (Chinese)Otitis Media (Chinese)documented in this encounter [employer] Phone: Evaluation note Diagnosis Musculoskeletal back pain- Primary documented in this encounter [employer] Phone: evaluation note* Diagnosis Screening for malignant neoplasm of cervix Screening for malignant neoplasm of the cervix Epigastric pain Abdominal pain, epigastric documented in this encounter [employer] Phone: evaluation note* Diagnosis Otalgia of right ear- Primary Otalgia, unspecified Subacute otitis media, unspecified otitis media type Epigastric pain Abdominal pain, epigastric documented in this encounter [employer] Phone: evaluation note* Diagnosis ASCUS with positive high risk HPV cervical Epigastric pain Abdominal pain, epigastric documented in this encounter [employer] Phone: evaluation note* Diagnosis Epigastric pain Abdominal pain, epigastric documented in this encounter [employer] Phone: evaluation note* Diagnosis Left lower quadrant abdominal pain- Primary BV (bacterial vaginosis) Vaginitis and vulvovaginitis, unspecified Pelvic pain documented in this encounter [facility] note* Diagnosis Generalized abdominal pain Abdominal pain, generalized Nasal and sinus discharge Other diseases of nasal cavity and sinuses Pelvic pain documented in this encounter [facility] note* Diagnosis Temperature intolerance Other general symptoms Pelvic pain documented in this encounter [facility] note* Diagnosis Other acute back pain Hematuria, unspecified type Pelvic pain documented in this encounter [facility] note* Diagnosis Flank pain- Primary Abdominal pain, unspecified site Pelvic pain documented in this encounter [facility] note* Diagnosis Muscle pain- Primary Mylagia and myositis, unspecified Pelvic pain documented in this encounter [facility] note* Diagnosis Chest pain, unspecified type- Primary Pelvic pain documented in this encounter [facility] note* Diagnosis Pain of upper abdomen- Primary Abdominal pain, other specified site Pelvic pain documented in this encounter [facility] note* Diagnosis Upper abdominal pain- Primary Abdominal pain, other specified site Gastritis without bleeding, unspecified chronicity, unspecified gastritis type Anxiety Anxiety state, unspecified [facility] Diagnosis Biliary dyskinesia- Primary Other specified disorder of gallbladder Gastroesophageal reflux disease without esophagitis Esophageal reflux Right upper quadrant abdominal pain Costochondritis Tietze's disease [facility] Diagnosis Fall, initial encounter- Primary Contusion of left hand, initial encounter Pelvic pain documented in this encounter [facility] note* Diagnosis Dysphagia, unspecified type- Primary Biliary dyskinesia Other specified disorder of gallbladder Gastroesophageal reflux disease without esophagitis Esophageal reflux Right upper quadrant abdominal pain [facility]* Diagnosis Pain, dental- Primary Unspecified disorder of the teeth and supporting structures Pelvic pain documented in this encounter [facility] note* Diagnosis Preop cardiovascular exam- Primary Pre-operative cardiovascular examination Elevated blood pressure reading Elevated blood pressure reading without diagnosis of hypertension Family history of bicuspid aortic valve Chest pain, musculoskeletal Other chest pain [facility]* Diagnosis Need for fdhtsruigg-cgoomun-fusoaducy (Tdap) vaccine- Primary Need for prophylactic vaccination with combined gdogcolsdf-vucpzhd-qqxwxlrza (DTP) vaccine Pelvic pain documented in this encounter [facility] note* Diagnosis Low back pain, unspecified back pain laterality, unspecified chronicity, unspecified whether sciatica present Vaginal discharge Leukorrhea, not specified as infective Left hip pain Pain in joint, pelvic region and thigh Pelvic pain documented in this encounter [facility] note* Diagnosis Cough, unspecified type Pelvic pain documented in this encounter [facility] note* Diagnosis Pain, dental- Primary Unspecified disorder of the teeth and supporting structures Pain due to dental caries Dental infection Acute apical periodontitis of pulpal origin Pelvic pain [facility] Instructions* Siri Barrera, DO - 01/14/2022 Please follow-up with Dr. Bridges tomorrow at your scheduled appointment. Take Tylenol or ibuprofen as needed for the back pain. * Attachments The following attachments cannot be sent through Care Everywhere. * Back Pain (Chinese) [facility] Discharge instructions* Attachments The following attachments cannot be sent through Care Everywhere. * Musculoskeletal Pain (Chinese) documented in this [facility] Discharge instructions* Attachments The following attachments cannot be sent through Care Everywhere. * Gastritis (Chinese) * Abdominal Pain (Chinese) * Anxiety Disorders: General Info (Chinese) [facility] Attachments The following attachments cannot be sent through Care Everywhere. * Immunization: Td Booster (Chinese) [facility]ructionsNot on file documented in [facility] encounterPrem[facility] SystemInstructionsNot on file documented in [facility]* Attachments The following attachments cannot be sent through Care Everywhere. * Dysphagia (Chinese) * Gallbladder Diet (Chinese) documented in [facility] SystemInstructionsNot on file documented in this encounterK[facility] CampusInstructionsNot on file documented in this encounterK[facility] CampusReason for referral (narrative)* Consultation (Routine) - Pending Review Specialty Diagnoses / Procedures Referred By Dulce kwok Referred To Contact Gastroenterology Diagnoses Biliary dyskinesia Gastroesophageal reflux disease without esophagitis Right upper quadrant abdominal pain Tete Hoang MD [address], [facility] [address] [place] [address] [facility] [address] [facility] [address] [place] [address] Referral ID Status Reason Start Date Expiration Date Visits Requested Visits Authorized [id number] Pending Review Specialty Services Required 05/17/2025 1 1 [facility]Reason for [facility] Narrative* Consultation (Routine) - Pending Review Specialty Diagnoses / Procedures Referred By Dulce kwok Referred To Contact General Surgery Diagnoses RUQ pain Dyskinesia of gallbladder Procedures AMB EXTERNAL REFERRAL TO GENERAL SURGERY Tom Perkins MD [address] [facility] [address] [place] [address] Tete Hoang MD [address], [facility] [address] [place] [address] Referral ID Status Reason Start Date Expiration Date V isits Requested Visits Authorized [id number] Pending Review 05/03/2024 10/30/2024 1 1 [facility] Inst[facility] * Patient Instructions - Marialuisa Huerta [...] your doctor if you can take an grjp-rhp-ocqwptk medicine. Take your antibiotics as directed. Do not stop taking them just because you feel better. You need to take the full course of antibiotics. To prevent tooth abscess Mccarr and floss every day, and have regular [...] Log into your personal health record on [email or web address] and enter L466 in the Education box to learn more about Abscessed Tooth: Care Instructions. Current as of: April 21, 2016 Content Version: 11.2 7397-8634 [employer]. Care instructions adapted under license by your healthcare professional. If you have questions about a medical condition or this instruction, always ask your healthcare professional. [employer] disclaims any warranty or liability for your [...] a smoking cessation program, such as the [place]'s [place] from Smoking program. Set a quit date. [...] come in several forms, many of themavailable ypig-mcw-irjzzzd: Nicotine patches Nicotine gum and lozenges Nicotine [...] Log into your personal health record on [email or web address] and enter Y522 in the Education box to

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
[2024-07-20 19:58] LABS: Basophils Absolute Auto 0.1 10^3/uL (0.0-0.1); Basophils Percent Auto 0.9 % (0.2-2.0); Eosinophils Absolute Auto 0.3 10^3/uL (0.0-0.7); Eosinophils Percent Auto 3.3 % (0.9-7.0); Hematocrit 37.9 % (36.0-48.0); Hemoglobin 13.1 g/dL (12.0-16.0); Immature Granulocytes Abs Auto 0.02 10^3/uL (0.00-0.03); Immature Granulocytes Pct Auto 0.3 % (0.0-0.5); Lymphocytes Percent Auto 25.8 % (20.5-60.0); Mean Corpuscular HGB Conc 34.6 g/dL (29.9-35.2); Mean Corpuscular Hemoglobin 33.3 pg (26.7-34.0); Mean Corpuscular Volume 96.4 fL (81.0-99.0); Mean Platelet Volume 9.6 fL (9.5-13.5); Monocytes Absolute Auto 0.6 10^3/uL (0.3-0.8); Monocytes Percent Auto 8.2 % (1.7-12.0); Neutrophils Absolute Auto 4.7 10^3/uL (1.4-6.5); Neutrophils Percent Auto 61.5 % (43.0-75.0); Platelet Count 273 10^3/uL (150-450); Red Blood Count 3.93 10^6/uL (4.20-5.40); Red Cell Distribution Width 11.9 % (11.0-15.0); White Blood Count 7.6 10^3/uL (4.0-11.0)
[2024-07-20 20:01] LABS: Bilirubin Urine NEGATIVE (NEGATIVE); Blood Urine NEGATIVE (NEGATIVE); Clarity Urine CLEAR (CLEAR); Color Urine LT. YELLOW (YELLOW); Glucose Urine UA NEGATIVE (NEGATIVE); Ketones Urine NEGATIVE (NEGATIVE); Leukocyte Esterase Urine NEGATIVE (NEGATIVE); Nitrite Urine NEGATIVE (NEGATIVE); Protein Urine NEGATIVE (NEG/TRACE); Urobilinogen Urine 0.2 EU/dL (0.2-1.0)
[2024-07-20 20:07] LABS: BUN Creatinine Ratio 11.4; Calcium 8.6 mg/dL (8.5-10.1); Carbon Dioxide 28.9 mmol/L (21.0-32.0); Chloride 107 mmol/L (98-107); Estimated GFR (African America >60 (>=60 mL/min/1.73m^2); Estimated GFR (Non-African Ame >60 (>=60 mL/min/1.73m^2); Glucose 93 mg/dL (74-106); Potassium 3.9 mmol/L (3.5-5.1); Sodium 140 mmol/L (136-145)
[2024-07-20 20:08] LABS: HCG Qualitative NEGATIVE (NEGATIVE); Internal Control Within Normal Limits
[2024-07-20 20:12] LABS: Bacteria Urine TRACE #/HPF (NONE SEEN); Cast Seen? NONE SEEN #/LPF (NONE SEEN); Crystals Seen? None Seen #/HPF (None Seen); Mucus Urine NONE SEEN (NONE SEEN); RBC Urine NONE SEEN #/HPF (0-2); Squamous Epithelial Cell Urine RARE #/LPF (NONE/RARE); WBC Urine NONE SEEN #/HPF (NONE SEEN)
[2024-07-20 20:45] VITALS: BP 116/72; PULSE 74; O2SAT 100
== END 2024-07-20 20:48 | disposition home or self-care (01) ==
PROVIDERS: Emergency Provider Emergency Medicine; PCP Family Medicine
DX: R10.32 Left lower quadrant pain (principal)
CPT/HCPCS: 36415; 80048; 81001; 84703; 85025; 99284